=== PATIENT | female | born 1955 | race Caucasian/White ===

== ENCOUNTER 2016-10-19 09:02 | Inpatient (IN) | payer OTHER ==
[~2016-10-19] VITALS: Ht 165.1 cm; Wt 90.0 kg
[2016-10-19] MEDS: ENOXAPARIN 40 MG/0.4 ML SYRINGE (J1650) SC SCH (09:00)
[~2016-10-19 09:02] MED LIST: /METO25TAB PO; /MOXI40TA PO; ACCUKIT10 XX; ACURKIT XX; ADV250INH INH; ALB2.5NEB INH; ALBU17IN INH; ALBU17IN2 INH; ALPR1TAB3 PO; ASPI1TAB PO; ASPI81TA PO; AZIT250T3 PO; BUPR75TA5 PO; CEPH500C PO; CIPR500T3 PO; CYCL10TA PO; FLUC150T PO; FLUO20CA8 PO; FURO40TA2 PO; GLUC1000 PO; HYDR-3716 PO; INSUDET SC; INVA1INJ IV; IPRA2IN INH; K-TA10TA2 PO; KLOR1TAB77 PO; LASI20TA PO; LASI40TA PO; LISI10TA4 PO; METF500T PO; METO-346 PO; NICO14DI5 TD; NICO21PAT TD; NICO7DIS TD; NICODIS TD; POTA1TAB14 PO; POTA20VL PO; PRED10TA OR; PRED10TA PO; PRED10TA2 PO; PRED20TA PO; PRED20TAB PO; PYRI200T2 PO; SUCR1TAB56 PO; TIZA4CAP3 PO; TOUJ1.2I SC; TRAZ25TA PO; TYLE325T5 PO; VENL150C43 PO; VENTAER INH; VICO7.5T11 PO; XANA1TAB2 PO; ZITH500T PO; ZOCO20TA PO; [UNRECOGNIZED DRUG - CODE] PO; [UNRECOGNIZED DRUG - CODE] XX
[2016-10-19] MEDS ORDERED: IPRATROPIUM 0.5MG/ALBUTEROL 2.5MG INH SOL UD 3ML (DUONEB)(J7620) As Ordered ONE (09:22)
[2016-10-19] MEDS ORDERED: ALBUTEROL SULFATE 2.5 MG/0.5 ML INH NEB SOLN As Ordered ONE (09:23)
[2016-10-19] MEDS ORDERED: methylPREDNISolone INJ 125 MG/2 ML VIAL (J2930) As Ordered ONE (09:27)
[2016-10-19 09:32] LABS: BASO % 0.4 % (0.0-1.0); EOS % 0.4 % (0.0-3.0); LARGE UNSTAINED CELL # 0.2 K/mm3 (0.0-0.4); LARGE UNSTAINED CELL % 1.8 % (0.0-4.0); LYMPH # 2.4 K/mm3 (1.5-4.5); LYMPH % 18.8 % (24.0-44.0); MEAN CORPUSCULAR HEMOGLOBIN 30.7 pg (27.0-33.0); MEAN CORPUSCULAR HGB CONC 31.3 g/dl (32.0-36.5); MEAN CORPUSCULAR VOLUME 98.1 fl (80.0-96.0); MONO # 1.3 K/mm3 (0.0-0.8); MONO % 10.3 % (0.0-5.0); NEUTROPHILS # 8.7 K/mm3 (1.8-7.7); NEUTROPHILS % 68.3 % (36.0-66.0); PLATELET COUNT, AUTOMATED 372 k/mm3 (150-450); RED CELL DISTRIBUTION WIDTH 14.3 % (11.5-14.5); WHITE BLOOD COUNT 12.7 K/mm3 (4.0-10.0)
[2016-10-19 09:43] LABS: ABG BASE EXCESS 2.9 (-2.0-2.0); ABG DEVICE NASAL CANN; ABG HCO3 31.8 MEQ/L (22.0-26.0); ABG PARTIAL PRESSURE O2 93.5 mmHg (75.0-100.0); ABG TOTAL CO2 33.9 MEQ/L (23.0-31.0); ABG pH (ARTERIAL) 7.279 UNITS (7.350-7.450)
[2016-10-19 09:46] LABS: ABG PARTIAL PRESSURE CO2 69.3 mmHg (35.0-45.0)
[2016-10-19] MEDS ORDERED: METF500T PO (09:58)
[2016-10-19 10:02] LABS: ANION GAP 6 MEQ/L (8-16); BLOOD UREA NITROGEN 48 MG/DL (7-18); CALCIUM LEVEL 9.4 MG/DL (8.8-10.2); CARBON DIOXIDE LEVEL 35 MEQ/L (21-32); CHLORIDE LEVEL 103 MEQ/L (98-107); CREATININE FOR GFR 0.92 MG/DL (0.55-1.02); GLOMERULAR FILTRATION RATE > 60.0 (>45); GLUCOSE, FASTING 135 MG/DL (80-110); POTASSIUM SERUM 5.1 MEQ/L (3.5-5.1); SODIUM LEVEL 144 MEQ/L (136-145)
[2016-10-19 10:43] LABS: ALBUMIN 3.3 GM/DL (3.2-5.2); ALBUMIN/GLOBULIN RATIO 0.73 (1.00-1.93); ALKALINE PHOSPHATASE 76 U/L (45-117); ALT/SGPT 25 U/L (12-78); AST/SGOT 9 U/L (15-37); BILIRUBIN,DIRECT < 0.1 MG/DL (0.0-0.2); BILIRUBIN,TOTAL 0.2 MG/DL (0.2-1.0); TOTAL PROTEIN 7.8 GM/DL (6.4-8.2)
[2016-10-19 11:52] LABS: ABG BASE EXCESS 0.3 (-2.0-2.0); ABG DEVICE NASAL CANN; ABG HCO3 28.9 MEQ/L (22.0-26.0); ABG PARTIAL PRESSURE O2 79.5 mmHg (75.0-100.0); ABG STANDARD HCO3 24.7 MEQ/L (22.0-26.0); ABG TOTAL CO2 30.9 MEQ/L (23.0-31.0); ABG pH (ARTERIAL) 7.258 UNITS (7.350-7.450)
[2016-10-19 11:59] LABS: ABG PARTIAL PRESSURE CO2 66.2 mmHg (35.0-45.0)
[2016-10-19] MEDS ORDERED: DEXTROSE 50% 50 ML SYRINGE IV PRN (13:00)
[2016-10-19] MEDS ORDERED: GLUCOSE 4 GM CHEW TABLET PO PRN (13:00)
[2016-10-19] MEDS ORDERED: ONDANSETRON 4MG/2ML VIAL (J2405) IV PRN (13:00)
[2016-10-19] MEDS ORDERED: GLUCAGON FOR INJ 1 MG VIAL (J1610) SC PRN (13:00)
[2016-10-19] MEDS ORDERED: IPRATROPIUM 0.5MG/ALBUTEROL 2.5MG INH SOL UD 3ML (DUONEB)(J7620) NEB PRN ×2 (13:00)
[2016-10-19] MEDS ORDERED: IPRATROPIUM 0.5MG/ALBUTEROL 2.5MG INH SOL UD 3ML (DUONEB)(J7620) NEB SCH (14:00)
--- NOTE | 2016-10-19 14:01 | HPE ---
DATE OF ADMISSION: 10/19/2016 PRIMARY CARE PROVIDER: Dr. Thomas CHIEF COMPLAINT: Acute shortness of breath. HISTORY OF PRESENT ILLNESS: Ms. Weiss is a 60-year-old female, who presented to the emergency department with acute shortness of breath. Did perhaps initially had some altered mentation. Had complained to the emergency room (ER) staff that she has had increasing shortness of breath with cough and thick sputum for the last several days. Was started on prednisone and antibiotic by her outpatient provider yesterday. Difficult to ascertain a more meaningful history from the patient other than she said that her sister has been sick at home for the last week or so, as well, but she is currently on bilateral positive airway pressure (BiPAP), and the majority of the history and physical (H and P) was garnished from the medical records and family members at bedside. PAST MEDICAL HISTORY: Is positive for congestive heart failure (CHF), chronic obstructive pulmonary disease (COPD), diabetes, anxiety, tobacco use. SOCIAL HISTORY: She is a heavy smoker, unable to quantify at this time. No alcohol. No intravenous (IV) drug use. No recent travel. Positive sick contact at home with her sister having a lower respiratory infection. FAMILY HISTORY: Noncontributory. ALLERGIES: No known drug allergies. HOME MEDICATIONS: - Xanax 1 mg four times a day - potassium chloride 20 mEq daily - hydrocodone/acetaminophen 5/325 every 8 hours as needed back pain - Carafate 1 gram three times a day - metformin 500 mg two tablets twice a day - Cipro 500 mg every 12 hours, recently started yesterday - furosemide 40 mg daily - prednisone 5 mg three times a day started yesterday, as well - home oxygen 1.5 liters at night as needed REVIEW OF SYSTEMS: Constitutional: Questionable fevers. No chills. No rigors. No nausea, vomiting, or change in appetite. HEENT: No headache, lightheaded, dizziness, blurry vision, double vision, or tinnitus. No difficulty with swallow or speech. Pulmonary: Positive productive sputum and cough. No hemoptysis. Positive for wheeze. Positive history of COPD. Cardiovascular: Positive history of CHF. She has no paroxysmal nocturnal dyspnea (PND), orthopnea, but has noticed a little bit of some lower extremity edema. She does use furosemide daily. Gastrointestinal (GI): No nausea, vomiting, diarrhea. Bowel movements are regular. She denies any hematochezia or melena. Genitourinary (): No dysuria, frequency, or hematuria. Musculoskeletal: No bone loss or joint pain or swelling. Neurologic: No paresthesias or paralysis. No migraines. Lymphatics: No lumps, bumps, swelling in the neck, axilla, or groin. No weight loss. No night sweats. Endocrine: Positive for diabetes. Negative for thyroid disorder. Hematology: Negative for bleeding or bruising disorder. No prior history of venous thromboembolism. Oncology: No history of cancer. Psychiatric: Positive history of anxiety but no history of depression. No suicidal ideation. No audiovisual hallucination. Skin: No complaint of rashes, abrasions. 10-point review of systems completed. Pertinent positives are listed. PHYSICAL EXAMINATION: Temperature is 98.7, respiratory rate is 27, pulse 114, blood pressure (BP) is 134/76, SpO2 is 95% currently on BiPAP settings. HEENT: Head is atraumatic, normocephalic. Eyes: Pupils equal, round, reactive to light and accommodation. Throat clear. Mucous membranes dry. Neck: Supple. Lungs: Expiratory wheeze throughout all lung gonzalez. Diminished bibasilar breath sounds and occasional rhonchi bilaterally. Heart: Regular rate and rhythm. Abdomen: Is soft, nontender, nondistended, with positive bowel sounds. Obesity is noted. Extremities: She did have some trace edema of the ankles. No calf tenderness. LABORATORY DATA: White count is 12.7, hemoglobin 14.3, and platelets 372,000. Sodium 144, potassium 5.1, chloride 103, bicarbonate 35, anion gap 6, BUN is 48, creatinine is 0.92, glucose is 135, lactic acid 0.4, total bilirubin 0.2, direct bilirubin 0.1, AST 90, ALT 25, alkaline phosphatase 76, CK 34, CK-MB 2.4, troponin is less than 0.02, BNP is 60.3, albumin is 3.3. Blood cultures pending times two. Influenza A and B are pending. Chest x-ray: She does appear to have poor technique. Cardiomegaly is noted. No acute consolidation or infiltrate is noted. 12-lead electrocardiogram (EKG): Supraventricular tachycardia is noted. No acute Q-wave abnormalities. Arterial blood gas (ABG) initially showed a blood gas with pH of 7.279, pCO2 69.3, and pO2 of 93.5. Repeat after being on BiPAP: pH is 7.258 with pCO2 of 66.2, pO2 79.5. She does show some mild improvement while being on BiPAP. Will continue her on BiPAP in the intensive care unit (ICU) and continue to monitor closely. IMPRESSION: Ms. Weiss is a 60-year-old female, who presents with acute hypoxic respiratory failure and hypercarbia. Will need to be admitted to the ICU on BiPAP. She did require some gentle hydration with receiving two normal saline boluses of 500 mL and an additional 1000 mL bolus while in the emergency department. However, she is currently maintaining good blood pressure readings with systolic in 130s and maintaining good oxygen saturation on BiPAP. PROBLEM LIST: 1. Acute on chronic respiratory failure with hypercarbia with showing an improvement on BiPAP. 2. Presumed community-acquired pneumonia. qSOFA and lactic acid is negative for sepsis but will follow her closely. 3. Chronic obstructive pulmonary disease exacerbation with the use of home oxygen (O2). 4. History of congestive heart failure. 5. Anxiety. 6. History of tobacco use. PLAN: The patient is in ICU on BiPAP per Dr. Tom. Will continue with IV Levaquin, Solu-Medrol, and DuoNebs. Nothing by mouth until she is off BiPAP. Then, she can progress to a consistent-carbohydrate diet. For now, will do fingersticks every 6 hours with sliding scale coverage. Once she has been able to progress to a consistent-carbohydrate diet, will change this to before food and at bedtime fingersticks with before meals and at bedtime sliding scale coverage. Influenza A and B are pending. Continue her home meds with the exception of her inhalers, Lasix, potassium chloride, metformin or resume her diuretics in 24-48 hours pending her clinical status. For now, she has been given some IV fluids and may need to consider some gentle hydration, depending on how her clinical picture looks. Deep venous thrombosis (DVT) prophylaxis with Lovenox. DISPOSITION: She will be here greater than 2 midnights. She does have some acute hypoxia and combined with hypercarbia with respiratory failure and her prognosis does appear to be guarded currently. MARILUZ
--- NOTE | 2016-10-19 14:52 | EDDOCDS ---
Physician Documentation [facility] Name: Allison Weiss Age: 60 yrs Sex: Female : 1955 Arrival Date: 10/19/2016 Time: 09:02 Bed 13 Private MD: Khadijah Thomas Disposition: 10/19/16 13:19 Hospitalization ordered by Nura Espinoza for Inpatient Admission. Preliminary diagnosis is Respiratory failure, unspecified with hypercapnia. - Bed requested for M ICU. - Status is Inpatient Admission. dsf - Condition is Stable. - Problem is new. - Symptoms have improved. Historical: - Allergies: no known allergies; - Home Meds: 1. Xanax 1 mg Oral tab four times a day 2. potassium chloride 20 mEq Oral TbER once daily 3. hydrocodone-acetaminophen 5-325 mg Oral tab every 8 hours as needed 4. Carafate 1 gram Oral tab three times a day 5. metformin 500 mg Oral tab 2 tabs 2 times per day 6. Cipro 500 mg Oral tab 1 tab every 12 hours 7. furosemide 40 mg Oral tab once daily 8. prednisone 5 mg oral TbEC three times a day 9. Oxygen 1.5 liters at night as needed - PMHx: CHF; COPD; Diabetes - NIDDM: controlled; - Social history: Smoking status: Patient uses tobacco products, heavy tobacco smoker. No barriers to communication noted, The patient speaks fluent Romanian, Speaks appropriately for age. - Family history: Not pertinent. - : The pt / caregiver states he / she is not on anticoagulants. Home medication list is obtained from the patient. - Exposure Risk Screening:: None identified. Vital Signs: 10/19 09:03 BP 103 / 66; Pulse 119; Resp 22; Temp 98.7(O); Pulse Ox 84% ; Weight 90.26 kg / 198.99 cmb lbs; Height 5 ft. 5 in. (165.10 cm); Pain 7/10; 09:23 BP 97 / 55 (auto/); dsf 09:24 Pulse 94 MON; Pulse Ox 96% ; dsf 09:48 BP 105 / 69 (auto/); dsf 09:48 Pulse 98 MON; Pulse Ox 97% ; dsf 10:21 BP 130 / 84 (auto/); dsf 10:21 Pulse 108 MON; Pulse Ox 97% ; dsf 10:35 BP 99 / 56 (auto/); dsf 10:35 Pulse 66 MON; Pulse Ox 100% ; dsf 10:44 Resp 33; dsf 10:57 Pulse 114 MON; Pulse Ox 95% ; dsf 10:59 BP 134 / 76 (auto/); dsf 11:01 Resp 27; dsf 11:06 BP 134 / 83 (auto/); dsf 11:06 Pulse 110 MON; Pulse Ox 94% ; dsf 11:21 BP 133 / 82 (auto/); dsf 11:21 Pulse 110 MON; Pulse Ox 95% ; dsf 11:36 BP 122 / 69 (auto/); dsf 11:37 Pulse 108 MON; Pulse Ox 79% ; dsf 11:51 BP 122 / 71 (auto/); dsf 11:51 Pulse 104 MON; Pulse Ox 95% ; dsf 12:06 BP 123 / 61 (auto/); dsf 12:06 Pulse 104 MON; Pulse Ox 91% ; dsf 12:13 Temp 97.5(TE); dsf 12:13 BP 143 / 77 (auto/); Resp 23; dsf 12:21 BP 135 / 72 (auto/); dsf 12:22 Pulse 104 MON; Pulse Ox 97% ; dsf 12:40 BP 101 / 65 (auto/); dsf 12:42 Pulse 88 MON; Pulse Ox 96% ; dsf 12:57 BP 143 / 78 (auto/); dsf 12:57 Pulse 106 MON; Pulse Ox 92% ; dsf 13:06 BP 119 / 71 (auto/); dsf 13:06 Pulse 98 MON; Pulse Ox 97% ; dsf 13:21 BP 115 / 68 (auto/); dsf 13:22 Pulse 104 MON; Pulse Ox 96% ; dsf 13:51 BP 134 / 79 (auto/); dsf 13:53 Pulse 106 MON; Pulse Ox 96% ; dsf 13:58 BP 134 / 74 (auto/); dsf 13:58 Pulse 108 MON; Pulse Ox 95% ; dsf 14:06 BP 124 / 68 (auto/); dsf 14:07 Pulse 104 MON; Pulse Ox 95% ; dsf 14:21 BP 137 / 68 (auto/); dsf 14:21 Pulse 112 MON; Pulse Ox 96% ; dsf 14:36 BP 138 / 56 (auto/); dsf 14:40 Pulse 114 MON; Pulse Ox 91% ; dsf 14:45 BP 134 / 74; Pulse 107; Resp 31; Temp 97.1(TE); Pulse Ox 97% on 30% BiPAP; Pain 0/10; dsf 09:03 Body Mass Index 33.11 (90.26 kg, 165.10 cm) cmb MDM: 09:10 -Blood Culture (Adults Only), peripheral from different site, or from device/port/PICC sd1 etc. if present ordered. 09:10 Call Respiratory ordered. sd1 09:10 Vehicle Care Specialist/Pulse Ox/q 15 min VS ordered. sd1 09:10 IV Saline Lock ordered. sd1 09:10 Oxygen at 4L/Min NC or Home dosage ordered. sd1 09:10 Rhythm Strip to chart ordered. sd1 09:11 -Arterial Blood Gas Ordered. EDMS 09:11 B-Type Natiuretic Peptide Ordered. EDMS 09:11 Basic Metabolic Profile Ordered. EDMS 09:11 CBC with Diff Ordered. EDMS 09:11 Cardiac Injury Profile Ordered. EDMS 09:11 Troponin Ordered. EDMS 09:11 Lactic Acid (Richards tube on ice) Ordered. EDMS 09:11 -Blood Culture Ordered. EDMS 09:11 Chest, 1 View Ordered. EDMS 09:11 ECG WITH READING ER PHYS+CARDIAG ordered. EDMS 09:12 Call Respiratory complete. lbd 09:13 -Blood Culture (Adults Only), peripheral from different site, or from device/port/PICC lbd etc. if present complete. 09:15 BLOOD CULTURES Ordered. EDMS 09:22 Albuterol-Ipratropium 3 ml Inhalation once ordered. sd1 09:22 Albuterol 2.5 mg Nebulizer once x3 ordered. sd1 09:23 Solu-MEDROL 125 mg IVP once ordered. sd1 09:23 NS 0.9% 500 ml IV at bolus once ordered. sd1 09:23 BED REQUEST+ADM ordered. EDMS 09:40 CBC with Diff Reviewed. sd1 09:41 NS 0.9% 500 ml IV at bolus once ordered. sd1 09:55 -Arterial Blood Gas Reviewed. sd1 10:14 Basic Metabolic Profile Reviewed. sd1 10:14 Cardiac Injury Profile Reviewed. sd1 10:14 Troponin Reviewed. sd1 10:15 NS 0.9% 1000 ml IV at bolus once ordered. sd1 10:15 NS 0.9% (Sepsis- hypotension or lactate >4mmol/L, 30ml/kg) 30 ml/kg IV at bolus once; sd1 Give in 500mL aliquots, assess for ralestotal 2700cc ordered. 10:15 Misc. Nursing Order ordered. sd1 10:15 Moxifloxacin 400 mg IV at 400 mg/hr once over 60 mins ordered. sd1 10:18 -Arterial Blood Gas: 1.5 hours after BIPAP Ordered. EDMS 10:25 LIVER PROFILE Ordered. EDMS 10:43 Basic Metabolic Profile Reviewed. sd1 10:43 Cardiac Injury Profile Reviewed. sd1 10:43 Troponin Reviewed. sd1 11:05 Basic Metabolic Profile Reviewed. sd1 11:05 Cardiac Injury Profile Reviewed. sd1 11:05 LIVER PROFILE Reviewed. sd1 11:05 Troponin Reviewed. sd1 11:27 B-Type Natiuretic Peptide Reviewed. sd1 11:37 -Influenza A&B Rapid Antigen - Nose Ordered. EDMS 11:59 Lactic Acid (Richards tube on ice) Reviewed. sd1 12:55 D-Dimer Quant Ordered. EDMS 12:59 VENTILATOR SETTINGS ordered. EDMS 13:00 Admission / Observation Status ordered. EDMS 13:00 NPO DIET ordered. EDMS 13:19 Financial registration complete. mm15 13:20 [facility] Payment Agreement was scanned into [employer] and attached to record. mm15 13:52 BIPAP INPATIENT ordered. EDMS Administered Medications: 09:35 Drug: Solu-MEDROL 125 mg [Solu-Medrol 500 mg intravenous solution (125 mg)] Route: IVP; dsf Site: left antecubital; 09:35 Drug: NS 0.9% 500 ml [sodium chloride 0.9 % injection solution] Route: IV; Rate: bolus; dsf Site: left antecubital; 10:07 Follow up: IV Status: Completed infusion; IV Intake: 500ml dsf 09:37 Drug: Albuterol-Ipratropium 3 ml [ipratropium-albuterol 0.5 mg-3 mg(2.5 mg base)/3 mL kt1 nebulization soln (3 mL)] Route: Inhalation; 09:37 Drug: Albuterol 2.5 mg [albuterol sulfate 2.5 mg/0.5 mL solution for nebulization (0.5 kt1 mL)] Route: Nebulizer; 09:44 Drug: Albuterol 2.5 mg [albuterol sulfate 2.5 mg/0.5 mL solution for nebulization (0.5 kt1 mL)] Route: Nebulizer; 10:07 Drug: NS 0.9% 500 ml [sodium chloride 0.9 % injection solution] Route: IV; Rate: bolus; dsf Site: left antecubital; 13:14 Follow up: IV Status: Completed infusion; IV Intake: 500ml dsf 10:36 Drug: Moxifloxacin 400 mg [moxifloxacin 400 mg/250 mL-sodium chloride(iso) intravenous dsf piggyback] Route: IV; Rate: 400 mg/hr; Infused Over: 60 mins; Site: left antecubital; 13:13 Follow up: IV Status: Completed infusion; IV Intake: 250ml dsf 11:00 Drug: NS 0.9% 1000 ml [sodium chloride 0.9 % injection solution] Route: IV; Rate: dsf bolus; Site: right antecubital; 13:13 Follow up: IV Status: Completed infusion; IV Intake: 1000ml dsf 12:40 Drug: NS 0.9% (Sepsis- hypotension or lactate >4mmol/L, 30ml/kg) 2707.8 mL {Note: 700 dsf ml .} Route: IV; Rate: bolus; Site: right antecubital; Signatures: Dispatcher [facility] Dot Wong MD MD sd1 Carol Samuel, Parks And Recreation Manager [facility] Lainey Mares RN RN kpj Johnson, Bruce, RN RN bcj Fuller, Desiree, RN RN dsf [place] mm15 Christa Mark kt1 The chart was reviewed and I authenticate all verbal orders and agree with the evaluation and treatment provided.Corrections: (The following items were deleted from the chart) 10:25 10:23 LIVER PROFILE+LAB ordered. EDIA EDIA Attachments: 13:20 [facility] Payment Agreement [id number] MTDD
--- NOTE | 2016-10-19 14:52 | EDDOCDS ---
Nurse's Notes [facility] Name: Allison Weiss Age: 60 yrs Sex: Female : 1955 Arrival Date: 10/19/2016 Time: 09:02 Bed 13 Private MD: Khadijah Thomas Diagnosis: Respiratory failure, unspecified with hypercapnia Presentation: 10/19 09:18 Presenting complaint: Patient states: has been SOB for last few days - saw PMD bcj yesterday and started on prednisone and abx. today much more SOB. + cough with thick sputum. ? temp at home. Adult Sepsis Screening: The patient does not have new or worsening altered mentation. Patient has a respiratory rate of greater than or equal to 22 (1 point). Systolic blood pressure is greater than 100. Patient has a qSOFA score of 1- Negative Sepsis Screen. Suicide/Homicide risk assessment- the patient denies having any suicidal and/or homicidal ideations and does not present with any other emotional, behavioral or mental health complaints. 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 Transition of care: patient was not received from another setting of care. 09:18 Acuity: MARTHA Level 2 [facility] 09:18 Method Of Arrival: Walkin/Carried/Asstd [facility] Triage Assessment: 09:23 General: Appears ill, Behavior is cooperative. Pain: Location: chest Pain currently is bcj 7 out of 10 on a pain scale. HIV screening NA for this visit Offered previously. Respiratory: Onset: The symptoms/episode began/occurred today. Historical: - Allergies: no known allergies; - Home Meds: 1. Xanax 1 mg Oral tab four times a day 2. potassium chloride 20 mEq Oral TbER once daily 3. hydrocodone-acetaminophen 5-325 mg Oral tab every 8 hours as needed 4. Carafate 1 gram Oral tab three times a day 5. metformin 500 mg Oral tab 2 tabs 2 times per day 6. Cipro 500 mg Oral tab 1 tab every 12 hours 7. furosemide 40 mg Oral tab once daily 8. prednisone 5 mg oral TbEC three times a day 9. Oxygen 1.5 liters at night as needed - PMHx: CHF; COPD; Diabetes - NIDDM: controlled; - Social history: Smoking status: Patient uses tobacco products, heavy tobacco smoker. No barriers to communication noted, The patient speaks fluent Portuguese, Speaks appropriately for age. - Family history: Not pertinent. - : The pt / caregiver states he / she is not on anticoagulants. Home medication list is obtained from the patient. - Exposure Risk Screening:: None identified. Screenin:03 Infection Control. cmb 14:09 Screening information is obtained from the patient. Fall risk: No risks identified. dsf Assistance ADL's: requires no assistance with activities of daily living. Abuse/DV Screen: The patient / caregiver reports he/she is: not in a situation that causes fear, pain or injury. Nutritional screening: No deficits noted. Advance Directives: Currently, there is no health care proxy. home support is adequate. Assessment: 09:24 Adult Sepsis Screening: The patient does not have new or worsening altered mentation. dsf Patient has a respiratory rate of greater than or equal to 22 (1 point). Systolic blood pressure is less than or equal to 100 (1 point). Patient has a qSOFA score of 2. Patient has cough and/or SOB- Positive Sepsis Screen. Notified Dot Wong MD Patient made MARTHA Level 2. Patient placed in exam room. Charge nurse notified. General: Appears ill, Behavior is appropriate for age, cooperative. Pain: Location: chest Pain currently is 7 out of 10 on a pain scale. Neurological: Level of Consciousness is awake, alert, Oriented to person, place, time. Cardiovascular: Capillary refill < 3 seconds Heart tones S1 S2 present Rhythm is sinus tachycardia No ectopy. Chest pain is described as Pain is 7 out of 10 on a pain scale. is located in right left anterior chest wall. Respiratory: Airway is patent Respiratory effort is labored, Respiratory pattern is tachypnea Breath sounds are diminished bilaterally. Breath sounds with wheezes expiratory in right upper lobe and left upper lobe. GI: Abdomen is obese, Bowel sounds present X 4 quads. Abd is soft and non tender X 4 quads. Derm: Skin is pink, warm & dry. 10:36 General: Appears ill, Behavior is appropriate for age, cooperative. Neurological: Level dsf of Consciousness is awake, alert. Cardiovascular: Capillary refill < 3 seconds Heart tones S1 S2 present Rhythm is sinus rhythm No ectopy. Respiratory: Airway is patent Respiratory effort is labored, Respiratory pattern is tachypnea Breath sounds are diminished bilaterally. Breath sounds with wheezes expiratory in right upper lobe and left upper lobe. GI: Abdomen is non- distended obese, Bowel sounds present X 4 quads. Abd is soft and non tender X 4 quads. Derm: Skin is pink, warm & dry. 11:03 Adult Sepsis Screening: The patient does not have new or worsening altered mentation. dsf Patient has a respiratory rate of greater than or equal to 22 (1 point). Systolic blood pressure is greater than 100. Patient has a qSOFA score of 1- Negative Sepsis Screen. General: Appears ill, Behavior is appropriate for age, cooperative. Neurological: Level of Consciousness is awake, alert, Oriented to person, place, time. Cardiovascular: Capillary refill < 3 seconds Heart tones S1 S2 present Rhythm is sinus tachycardia No ectopy. Respiratory: Airway is patent bipap Respiratory effort is labored, Respiratory pattern is tachypnea Breath sounds are diminished bilaterally. Breath sounds with wheezes expiratory in right upper lobe and left upper lobe. GI: Abdomen is non- distended obese, Bowel sounds present X 4 quads. Abd is soft and non tender X 4 quads. Derm: Skin is pink, warm & dry. 12:03 General: Appears in no apparent distress, Behavior is appropriate for age, cooperative. dsf Neurological: Level of Consciousness is awake, alert. Cardiovascular: Capillary refill < 3 seconds Rhythm is sinus tachycardia No ectopy. Respiratory: Airway is patent bipap Respiratory effort is labored, Respiratory pattern is tachypnea. Derm: Skin is pink, warm & dry. 13:03 Adult Sepsis Screening: The patient does not have new or worsening altered mentation. dsf Patient has a respiratory rate of greater than or equal to 22 (1 point). Systolic blood pressure is greater than 100. Patient has a qSOFA score of 1- Negative Sepsis Screen. General: Appears in no apparent distress, Behavior is appropriate for age, cooperative. Neurological: Level of Consciousness is awake, alert. Cardiovascular: Capillary refill < 3 seconds Rhythm is sinus tachycardia No ectopy. Respiratory: Airway is patent Respiratory effort is even, Respiratory pattern is tachypnea. Derm: Skin is pink, warm & dry. 14:03 General: Appears in no apparent distress, Behavior is appropriate for age, cooperative. dsf Neurological: Level of Consciousness is awake, alert. Cardiovascular: Capillary refill < 3 seconds Rhythm is sinus tachycardia No ectopy. Respiratory: Airway is patent bipap Respiratory pattern is tachypnea. Derm: Skin is pink, warm & dry. 14:47 General: Appears in no apparent distress. Pain: Denies pain. Neurological: Level of dsf Consciousness is awake, alert, Oriented to person, place, time. Cardiovascular: Capillary refill < 3 seconds Heart tones S1 S2 present Rhythm is sinus tachycardia No ectopy. Respiratory: Airway is patent Respiratory effort is labored, Respiratory pattern is tachypnea Breath sounds are diminished bilaterally. GI: Abdomen is non- distended obese, Bowel sounds present X 4 quads. Abd is soft and non tender X 4 quads. Derm: Skin is pink, warm & dry. Vital Signs: 09:03 BP 103 / 66; Pulse 119; Resp 22; Temp 98.7(O); Pulse Ox 84% ; Weight 90.26 kg; Height 5 cmb ft. 5 in. (165.10 cm); Pain /10; 09:23 BP 97 / 55 (auto/); dsf 09:24 Pulse 94 MON; Pulse Ox 96% ; dsf 09:48 BP 105 / 69 (auto/); dsf 09:48 Pulse 98 MON; Pulse Ox 97% ; dsf 10:21 BP 130 / 84 (auto/); dsf 10:21 Pulse 108 MON; Pulse Ox 97% ; dsf 10:35 BP 99 / 56 (auto/); dsf 10:35 Pulse 66 MON; Pulse Ox 100% ; dsf 10:44 Resp 33; dsf 10:57 Pulse 114 MON; Pulse Ox 95% ; dsf 10:59 BP 134 / 76 (auto/); dsf 11:01 Resp 27; dsf 11:06 BP 134 / 83 (auto/); dsf 11:06 Pulse 110 MON; Pulse Ox 94% ; dsf 11:21 BP 133 / 82 (auto/); dsf 11:21 Pulse 110 MON; Pulse Ox 95% ; dsf 11:36 BP 122 / 69 (auto/); dsf 11:37 Pulse 108 MON; Pulse Ox 79% ; dsf 11:51 BP 122 / 71 (auto/); dsf 11:51 Pulse 104 MON; Pulse Ox 95% ; dsf 12:06 BP 123 / 61 (auto/); dsf 12:06 Pulse 104 MON; Pulse Ox 91% ; dsf 12:13 Temp 97.5(TE); dsf 12:13 BP 143 / 77 (auto/); Resp 23; dsf 12:21 BP 135 / 72 (auto/); dsf 12:22 Pulse 104 MON; Pulse Ox 97% ; dsf 12:40 BP 101 / 65 (auto/); dsf 12:42 Pulse 88 MON; Pulse Ox 96% ; dsf 12:57 BP 143 / 78 (auto/); dsf 12:57 Pulse 106 MON; Pulse Ox 92% ; dsf 13:06 BP 119 / 71 (auto/); dsf 13:06 Pulse 98 MON; Pulse Ox 97% ; dsf 13:21 BP 115 / 68 (auto/); dsf 13:22 Pulse 104 MON; Pulse Ox 96% ; dsf 13:51 BP 134 / 79 (auto/); dsf 13:53 Pulse 106 MON; Pulse Ox 96% ; dsf 13:58 BP 134 / 74 (auto/); dsf 13:58 Pulse 108 MON; Pulse Ox 95% ; dsf 14:06 BP 124 / 68 (auto/); dsf 14:07 Pulse 104 MON; Pulse Ox 95% ; dsf 14:21 BP 137 / 68 (auto/); dsf 14:21 Pulse 112 MON; Pulse Ox 96% ; dsf 14:36 BP 138 / 56 (auto/); dsf 14:40 Pulse 114 MON; Pulse Ox 91% ; dsf 14:45 BP 134 / 74; Pulse 107; Resp 31; Temp 97.1(TE); Pulse Ox 97% on 30% BiPAP; Pain 0/10; dsf 09:03 Body Mass Index 33.11 (90.26 kg, 165.10 cm) cmb Vitals: 09:03 Log In Time: October 19, 2016 at 09:01. cmb ED Course: 09:03 Patient visited by Sofia Ingram. cmb 09:03 Khadijah Thomas is Private Physician. cmb 09:03 Patient moved to Waiting cmb 09:07 RN notified that patient meets Red Flag criteria. cmb 09:08 Patient moved to 15 cmb 09:14 Accompanied by Family Member, Patient has correct armband on for positive ct3 identification. Placed in gown. Bed in low position. Call light in reach. Side rails up X 1. laboratory monitor on. Pulse ox on. NIBP on. 09:15 Dot Wong MD is Attending Physician. sd1 09:15 Patient visited by Dot Wong MD. sd1 09:19 Inserted saline lock: 20 gauge in left antecubital area The patient tolerated the dsf procedure well. O2 via nasal cannula \T\ 3L/min. 09:19 Lactic Acid (Richards tube on ice) Sent. dsf 09:19 -Blood Culture Sent. dsf 09:19 B-Type Natiuretic Peptide Sent. dsf 09:20 Basic Metabolic Profile Sent. dsf 09:20 CBC with Diff Sent. dsf 09:20 Cardiac Injury Profile Sent. dsf 09:20 Troponin Sent. dsf 09:21 Triage Initiated bcj 09:24 EKG done. (by ED staff). Reviewed by Dot Wong MD. ct3 09:25 Patient visited by Caitlin Kasper PCA. ct3 09:25 Patient visited by Jonnie Mazariegos RN. bcj 09:35 BLOOD CULTURES Sent. dsf 09:37 -Arterial Blood Gas Sent. kt1 09:57 Patient visited by Caitlin Kasper PCA. ct3 10:07 Patient moved to 13 dsf 10:37 Patient visited by Jessica Jarquin RN. dsf 11:01 Inserted saline lock: 20 gauge in right antecubital area The patient tolerated the dsf procedure well. 11:04 Patient visited by Jessica Jarquin RN. dsf 11:50 -Arterial Blood Gas: 1.5 hours after BIPAP Sent. kt1 12:00 Notified attending ED physician of Critical lab value. Dr Swanson aware of abnormal ABG [facility] results.. 12:13 Patient visited by Jessica Jarquin RN. dsf 12:47 Patient visited by Caitlin Kasper PCA. ct3 13:03 Manuel cath inserted 16 Fr. Balloon inflated. To gravity drainage. Urine specimen dsf collected. returned clear yellow urine. 13:04 Patient visited by Jessica Jarquin RN. dsf 13:04 -Influenza A&B Rapid Antigen - Nose Sent. dsf 13:19 Nura Espinoza DO is Hospitalizing Provider. sd1 13:20 [facility] Payment Agreement was scanned into [employer] and attached to record. mm15 14:09 The patient / caregiver is instructed regarding the plan of care and ED course. dsf 14:09 No procedures done that require assistance. dsf 14:12 Patient visited by Jessica Jarquin RN. dsf Administered Medications: 09:35 Drug: Solu-MEDROL 125 mg [Solu-Medrol 500 mg intravenous solution (125 mg)] Route: IVP; dsf Site: left antecubital; 09:35 Drug: NS 0.9% 500 ml [sodium chloride 0.9 % injection solution] Route: IV; Rate: bolus; dsf Site: left antecubital; 10:07 Follow up: IV Status: Completed infusion; IV Intake: 500ml dsf 09:37 Drug: Albuterol-Ipratropium 3 ml [ipratropium-albuterol 0.5 mg-3 mg(2.5 mg base)/3 mL kt1 nebulization soln (3 mL)] Route: Inhalation; 09:37 Drug: Albuterol 2.5 mg [albuterol sulfate 2.5 mg/0.5 mL solution for nebulization (0.5 kt1 mL)] Route: Nebulizer; 09:44 Drug: Albuterol 2.5 mg [albuterol sulfate 2.5 mg/0.5 mL solution for nebulization (0.5 kt1 mL)] Route: Nebulizer; 10:07 Drug: NS 0.9% 500 ml [sodium chloride 0.9 % injection solution] Route: IV; Rate: bolus; dsf Site: left antecubital; 13:14 Follow up: IV Status: Completed infusion; IV Intake: 500ml dsf 10:36 Drug: Moxifloxacin 400 mg [moxifloxacin 400 mg/250 mL-sodium chloride(iso) intravenous dsf piggyback] Route: IV; Rate: 400 mg/hr; Infused Over: 60 mins; Site: left antecubital; 13:13 Follow up: IV Status: Completed infusion; IV Intake: 250ml dsf 11:00 Drug: NS 0.9% 1000 ml [sodium chloride 0.9 % injection solution] Route: IV; Rate: dsf bolus; Site: right antecubital; 13:13 Follow up: IV Status: Completed infusion; IV Intake: 1000ml dsf 12:40 Drug: NS 0.9% (Sepsis- hypotension or lactate >4mmol/L, 30ml/kg) 2707.8 mL {Note: 700 dsf ml .} Route: IV; Rate: bolus; Site: right antecubital; Intake: 10:07 IV: 500.00ml; Total: 500.00ml. dsf 13:13 IV: 250.00ml; Total: 750.00ml. dsf 13:13 IV: 1000.00ml; Total: 1750.00ml. dsf 13:14 IV: 500.00ml; Total: 2250.00ml. dsf 10:56 pt also tipped bedpan over ,bed linen soaked, linen changed. kpj Output: 10:56 Urine: 400.00ml (Voided); Total: 400.00ml. kpj 14:39 Urine: 350.00ml (Voided); Total: 750.00ml. dsf 10:56 pt also tipped bedpan over ,bed linen soaked, linen changed. kpj RT: 09:44 ABG's drawn from right radial artery pressure held for 5 minutes no bleeding noted kt1 pressure bandage applied specimen sent pt. tolerated well. 09:44 Initial Med Neb Given as ordered Patient was instructed and evaluated on procedure. kt1 Respiratory: Breath sounds are diminished bilaterally. Breath sounds with wheezes at expiration. 10:12 BIPAP: Inspiratory Pressure: 12, Expiratory Pressure: 6, Backup Rate: 10, FiO2: 30%, kt1 Full face fask. 11:50 ABG's drawn from right radial artery pressure held for 5 minutes no bleeding noted kt1 pressure bandage applied specimen sent pt. tolerated well. Order Results: Lab Order: -Arterial Blood Gas; SPEC'M 10/19/16 09:21 Test: ABG pH (ARTERIAL); Value: 7.279; Range: 7.350-7.450; Abnormal: Below low normal; Units: UNITS; Status: F Test: ABG PARTIAL PRESSURE CO2; Value: 69.3; Range: 35.0-45.0; Abnormal: Above upper panic limits; Units: mmHg; Status: F Test: ABG PARTIAL PRESSURE O2; Value: 93.5; Range: 75.0-100.0; Units: mmHg; Status: F Test: ABG TOTAL CO2; Value: 33.9; Range: 23.0-31.0; Abnormal: Above high normal; Units: MEQ/L; Status: F Test: ABG HCO3; Value: 31.8; Range: 22.0-26.0; Abnormal: Above high normal; Units: MEQ/L; Status: F Test: ABG BASE EXCESS; Value: 2.9; Range: -2.0-2.0; Abnormal: Above high normal; Status: F Test: ABG STANDARD HCO3; Value: 27.0; Range: 22.0-26.0; Abnormal: Above high normal; Units: MEQ/L; Status: F Test: ABG O2 SATURATION; Value: 97.2; Range: 95.0-99.0; Units: %; Status: F Test: ABG DEVICE; Value: NASAL ONEAL; Status: F Lab Order: B-Type Natiuretic Peptide; SPEC' 10/19/16 09:18 Test: BRAIN NATRIURETIC PEPTIDE; Value: 60.3; Range: <100; Units: PG/ML; Status: F Lab Order: Basic Metabolic Profile; SPEC' 10/19/16 09:17 Test: GLUCOSE, FASTING; Value: 135; Range: 80-110; Abnormal: Above high normal; Units: MG/DL; Status: F Test: BLOOD UREA NITROGEN; Value: 48; Range: 7-18; Abnormal: Above high normal; Units: MG/DL; Status: F Test: CREATININE FOR GFR; Value: 0.92; Range: 0.55-1.02; Units: MG/DL; Status: F Test: GLOMERULAR FILTRATION RATE; Value: > 60.0; Range: >45; Status: F Test: SODIUM LEVEL; Value: 144; Range: 136-145; Units: MEQ/L; Status: F Test: POTASSIUM SERUM; Value: 5.1; Range: 3.5-5.1; Units: MEQ/L; Status: F Test: CHLORIDE LEVEL; Value: 103; Range: 98-107; Units: MEQ/L; Status: F Test: CARBON DIOXIDE LEVEL; Value: 35; Range: 21-32; Abnormal: Above high normal; Units: MEQ/L; Status: F Test: ANION GAP; Value: 6; Range: 8-16; Abnormal: Below low normal; Units: MEQ/L; Status: F Test: CALCIUM LEVEL; Value: 9.4; Range: 8.8-10.2; Units: MG/DL; Status: F Test Note: ; Units are mL/min/1.73 m2 Chronic Kidney Disease Staging per NKF: Stage I & II GFR >=60 Normal to Mildly Decreased Stage III GFR 30-59 Moderately Decreased Stage IV GFR 15-29 Severely Decreased Stage V GFR <15 Very Little GFR Left ESRD GFR <15 on COMPUTER APPLICATIONS INSTRUCTOR Lab Order: CBC with Diff; SPEC'M 10/19/16 09:18 Test: WHITE BLOOD COUNT; Value: 12.7; Range: 4.0-10.0; Abnormal: Above high normal; Units: K/mm3; Status: F Test: RED BLOOD COUNT; Value: 4.65; Range: 4.00-5.40; Units: M/mm3; Status: F Test: HEMOGLOBIN; Value: 14.3; Range: 12.0-16.0; Units: g/dl; Status: F Test: HEMATOCRIT; Value: 45.6; Range: 36.0-47.0; Units: %; Status: F Test: MEAN CORPUSCULAR VOLUME; Value: 98.1; Range: 80.0-96.0; Abnormal: Above high normal; Units: fl; Status: F Test: MEAN CORPUSCULAR HEMOGLOBIN; Value: 30.7; Range: 27.0-33.0; Units: pg; Status: F Test: MEAN CORPUSCULAR HGB CONC; Value: 31.3; Range: 32.0-36.5; Abnormal: Below low normal; Units: g/dl; Status: F Test: RED CELL DISTRIBUTION WIDTH; Value: 14.3; Range: 11.5-14.5; Units: %; Status: F Test: PLATELET COUNT, AUTOMATED; Value: 372; Range: 150-450; Units: k/mm3; Status: F Test: NEUTROPHILS %; Value: 68.3; Range: 36.0-66.0; Abnormal: Above high normal; Units: %; Status: F Test: LYMPH %; Value: 18.8; Range: 24.0-44.0; Abnormal: Below low normal; Units: %; Status: F Test: MONO %; Value: 10.3; Range: 0.0-5.0; Abnormal: Above high normal; Units: %; Status: F Test: EOS %; Value: 0.4; Range: 0.0-3.0; Units: %; Status: F Test: BASO %; Value: 0.4; Range: 0.0-1.0; Units: %; Status: F Test: LARGE UNSTAINED CELL %; Value: 1.8; Range: 0.0-4.0; Units: %; Status: F Test: NEUTROPHILS #; Value: 8.7; Range: 1.8-7.7; Abnormal: Above high normal; Units: K/mm3; Status: F Test: LYMPH #; Value: 2.4; Range: 1.5-4.5; Units: K/mm3; Status: F Test: MONO #; Value: 1.3; Range: 0.0-0.8; Abnormal: Above high normal; Units: K/mm3; Status: F Test: EOS #; Value: 0.0; Range: 0.0-0.50; Units: K/mm3; Status: F Test: BASO #; Value: 0.0; Range: 0.0-0.2; Units: K/mm3; Status: F Test: LARGE UNSTAINED CELL #; Value: 0.2; Range: 0.0-0.4; Units: K/mm3; Status: F Lab Order: Cardiac Injury Profile; SPEC'M 10/19/16 09:17 Test: CPK CREATINE PHOSPHOKINASE; Value: 34; Range: 26-192; Units: U/L; Status: F Test: CK-MB VALUE MASS; Value: 2.4; Range: 0.0-3.6; Units: NG/ML; Status: F Test: MB/CK RELATIVE INDEX; Value: 7.05; Range: < OR =4; Abnormal: Above high normal; Status: F Test Note: ; DIAGNOSIS CRITERIA MMB ng/ml Relative Index (RI) NON-AMI < or = 5 N/A RICHARDS ZONE > 5 < or = 4 AMI > 5 > 4 Lab Order: Troponin; SPEC'M 10/19/16 09:17 Test: TROPONIN I; Value: < 0.02; Range: < 0.10; Units: NG/ML; Status: F Test Note: ; Troponin I Reference Interval for Siemens [place] LOCI: 99th Percentile= 0.00-0.045 ng/ml Risk Stratification: <= 0.10 ng/ml Decreased Risk for Adverse Clinical Events. 0.10-1.50 ng/ml Increased Risk for Adverse Clinical Events. Evaluation of additional criterion and/or repeat testing in 2-6 hours is suggested to rule out myocardial damage. >= 1.50 ng/ml Indicative of Myocardial Injury. Lab Order: Lactic Acid (Richards tube on ice); SPEC10/19/16 09:18 Test: LACTIC ACID LEVEL, LACTATE; Value: 0.4; Range: 0.4-2.0; Units: MMOL/L; Status: F Lab Order: -Arterial Blood Gas: 1.5 hours after BIPAP; 10/19/16 11:38 Test: ABG pH (ARTERIAL); Value: 7.258; Range: 7.350-7.450; Abnormal: Below low normal; Units: UNITS; Status: F Test: ABG PARTIAL PRESSURE CO2; Value: 66.2; Range: 35.0-45.0; Abnormal: Above upper panic limits; Units: mmHg; Status: F Test: ABG PARTIAL PRESSURE O2; Value: 79.5; Range: 75.0-100.0; Units: mmHg; Status: F Test: ABG TOTAL CO2; Value: 30.9; Range: 23.0-31.0; Units: MEQ/L; Status: F Test: ABG HCO3; Value: 28.9; Range: 22.0-26.0; Abnormal: Above high normal; Units: MEQ/L; Status: F Test: ABG BASE EXCESS; Value: 0.3; Range: -2.0-2.0; Status: F Test: ABG STANDARD HCO3; Value: 24.7; Range: 22.0-26.0; Units: MEQ/L; Status: F Test: ABG O2 SATURATION; Value: 95.6; Range: 95.0-99.0; Units: %; Status: F Test: ABG DEVICE; Value: NASAL ONEAL; Status: F Lab Order: LIVER PROFILE; SPEC10/19/16 09:17 Test: AST/SGOT; Value: 9; Range: 15-37; Abnormal: Below low normal; Units: U/L; Status: F Test: ALT/SGPT; Value: 25; Range: 12-78; Units: U/L; Status: F Test: ALKALINE PHOSPHATASE; Value: 76; Range: 45-117; Units: U/L; Status: F Test: BILIRUBIN,TOTAL; Value: 0.2; Range: 0.2-1.0; Units: MG/DL; Status: F Test: BILIRUBIN,DIRECT; Value: < 0.1; Range: 0.0-0.2; Units: MG/DL; Status: F Test: TOTAL PROTEIN; Value: 7.8; Range: 6.4-8.2; Units: GM/DL; Status: F Test: ALBUMIN; Value: 3.3; Range: 3.2-5.2; Units: GM/DL; Status: F Test: ALBUMIN/GLOBULIN RATIO; Value: 0.73; Range: 1.00-1.93; Abnormal: Below low normal; Status: F Lab Order: -Influenza A&B Rapid Antigen - Nose; SPEC'M 10/19/16 13:02 Test: INFLUENZA A RAPID SCR by ICA; Value: INFLUENZA A RESULTS NEGATIVE; Status: F Test: INFLUENZA A RAPID SCR by ICA; Value: Comments:; Status: F Test: INFLUENZA B RAPID SCR by ICA; Value: INFLUENZA B RESULTS NEGATIVE; Status: F Test Note: ; The Influenza test is a direct rapid immunoassay for the qualitative detection of Influenza viral antigen. Cell culture (Viral Culture) testing should be considered to confirm NEGATIVE results and to assist in detecting other viruses that can provide similar clinical symptoms. Please contact the lab within 24 hours ([phone]) if confirmatory testing is desired. Lab Order: D-Dimer Quant; SPEC'M 10/19/16 09:17 Test: D-DIMER QUANT; Value: < 270.0; Range: <500; Units: ng/ml; Status: F Outcome: 13:19 Decision to Hospitalize by Provider. sd1 14:12 No special radiology studies were completed. dsf 14:46 Discharge Assessment: Patient awake, alert and oriented x 3. No cognitive and/or dsf functional deficits noted. Patient verbalized understanding of disposition instructions. patient administered narcotics - no. The following High Risk Discharge criteria are identified: None. Admitted to ICU accompanied by nurse, accompanied by tech, family with patient, via stretcher, with oxygen, on monitor, with chart. Condition: stable. Property :Personal belongings accompany Pt. 14:50 Patient left the ED. dsf Signatures: Dot Wong MD MD sd1 Lainey Mares RN RN Jonnie De La Rosa, RN RN Christa Gupta kt1 Caitlin Kasper, POWER PLANT ASSISTANT POWER PLANT ASSISTANT ct3 Jessica Jarquin RN RN dsf Sofia Ingram [facility] [place] mm15 Corrections: (The following items were deleted from the chart) 13:03 12:13 BP 143 / 77 Auto; dsf dsf 14:49 14:45 BP 134 / 74; Pulse 107bpm; Resp 22bpm; Pulse Ox 97% 02 30% BiPAP; Temp 97.1F dsf Temporal; Pain 0/10; dsf MTDD
[2016-10-19 15:13] VITALS: BP 121/59
[2016-10-19] MEDS: ASPIRIN 81 MG ENTERIC TAB PO SCH (15:29)
[2016-10-19] MEDS: ALPRAZolam 0.5 MG TAB PO PRN (15:30)
[2016-10-19] MEDS: LevoFLOXacin IV 500 MG in APPROPRIATE DILUENT 1 EA IV SCH (15:30)
--- NOTE | 2016-10-19 15:48 | REP ---
PORTABLE CHEST: AP portable view of the chest is performed and compared to multiple prior exams, the most recent of which is 08/28/2016. There is cardiomegaly. I see no acute infiltrate. Mediastinal silhouette is unchanged. IMPRESSION: Cardiomegaly. No acute infiltrate. Signed by Sebastian Richards MD 10/20/2016 05:06 P
[2016-10-19 16:00] VITALS: BP 152/78
[2016-10-19] MEDS: IPRATROPIUM 0.5MG/ALBUTEROL 2.5MG INH SOL UD 3ML (DUONEB)(J7620) NEB SCH ×2 (16:01→20:59)
--- NOTE | 2016-10-19 16:41 | CR.PDOC ---
[facility] Consultation Consultation Critical Care Note Date: 10/19/2016 Critical care time spent: 47 minutes excluding procedures NOTE: Asked by Dr. Espinoza to emergently evaluate Ms. Weiss for acute respiratory failure with hypoxia and hypercarbia requiring noninvasive positive pressure ventilation Ms. Weiss is a 60-year-old female with a past medical history of COPD (I do not know spirometric values), mild pulmonary hypertension, DM, anxiety and ongoing tobacco usage who presented to the emergency department with acute shortness of breath. She states that this came on suddenly yesterday. She went to see her primary care provider at that time who started her on Cipro and prednisone, however, she has progressively gotten worse over the past 24 hours, therefore she decided to come to the emergency department. In addition to shortness of breath, she had wheezing and a cough productive of white sputum. She denies hemoptysis, fevers, chills, night sweats, recent weight gain/loss, chest discomfort/pain, palpitations, exertional dyspnea, orthopnea, nausea, vomiting, diarrhea, constipation, or abdominal pain. She was seen and evaluated by the hospitalist service who felt that she likely has an exacerbation of her chronic obstructive pulmonary disease, with a presumed superimposed community-acquired pneumonia. 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 While in the emergency department she did have some mild hypotension and tachycardia, therefore she was treated with a total of 1.5 L of normal saline. She was also given Solu- Medrol 125 mg IV, and moxifloxacin, after one treatment with DuoNeb, and 2 additional albuterol nebulized treatments, she was not showing any improvement clinically, and her ABG had not improved, therefore the decision was made to place her on noninvasive positive pressure ventilation, and our service was consulted. ALLERGIES: No known drug allergies PHYSICAL EXAMINATION: Vitals: Blood pressure 143/78, pulse 106, respirations 23, temperature 97.5, pulse 92% on BiPAP, weight 90 kg, height 5 feet 5 inches, BMI 33 General: Awake, alert, sitting up on the edge of the bed. She is currently wearing the BiPAP mask. She appears to be in no acute distress, she is requesting to remove the mask. HEENT: Head normocephalic atraumatic, conjunctiva are pink, sclera are nonicteric, lips and oral cavity appeared dry. Hearing is grossly intact to conversation. Neck: No JVD. No thyromegaly or masses. Trachea is midline. Lymph: No cervical or supraclavicular lymphadenopathy. Chest: Normal size and shape. Respiratory: Effort is symmetric. Inspiratory and expiratory wheeze noted throughout. No rhonchi or crackles. Prolonged expiratory phase. No accessory muscle usage or retractions. Cardiovascular: Distant heart sounds, however it appears that she has regular rate and rhythm, with no appreciable rubs, gallops, or murmur. Abdomen: Obese, Soft, nontender, nondistended, no hepatosplenomegaly appreciated. Bowel sounds present. Extremities: 2+ pulses in the radial and dorsalis pedis bilaterally. She does have 1+ edema to just above the ankles bilaterally. No clubbing or cyanosis. IMAGING: I reviewed her AP portable chest x-ray which does not demonstrate any specific areas of consolidation, cardiac silhouette is enlarged. Both diaphragms and costophrenic angles are visible. ASSESSMENT: 1. Acute and chronic hypercapnic respiratory failure. 2. Chronic obstructive lung disease exacerbation. 3. Acute bronchitis, possibly viral. RECOMMENDATIONS: 1. Recommend that she continue with noninvasive positive pressure ventilation, we'll check another ABG at this time as she has been on it for greater than 2 hours, and adjust as necessary. 2. Continue with steroids, Solu-Medrol 60 mg every 12 hours 3. It is possible that she has had a viral infection as the inciting event, and in light of her leukocytosis and history of obstructive lung disease, it would be prudent to empirically treat her with antibiotics at this time to ensure that this does not progress into a bacterial infection. 4. Recommend performing pulmonary function tests prior to discharge when she is feeling better, to more precisely delineate the degree of her obstructive lung disease. ADDENDUM: I, Dr. Ni Post, independently performed a history and physical examination and agree with the documentation above. I discussed the assessment and plan with the resident as noted in the above documentation. Laboratory Data Labs 24H Laboratory Tests 2 10/19/16 09:17: Aspartate Amino Transf (AST/SGOT) 9L, Alanine Aminotransferase (ALT/SGPT) 25, Alkaline Phosphatase 76, Total Bilirubin 0.2, Direct Bilirubin < 0.1, Albumin 3.3, Albumin/Globulin Ratio 0.73L, Anion Gap 6L, Calcium Level 9.4, Creatine Kinase MB 2.4, Creatine Kinase MB Relative Index 7.05H, D-Dimer, Quantitative < 270.0, Glomerular Filtration Rate > 60.0, Total Creatine Kinase 34, Total Protein 7.8, Troponin I < 0.02 10/19/16 09:18: B-Type Natriuretic Peptide 60.3, White Blood Count 12.7H, Red Blood Count 4.65, Hemoglobin 14.3, Hematocrit 45.6, Mean Corpuscular Volume 98.1H, Mean Corpuscular Hemoglobin 30.7, Mean Corpuscular Hemoglobin Concent 31.3L, Red Cell Distribution Width 14.3, Platelet Count 372, Neutrophils (%) (Auto) 68.3H, Lymphocytes (%) (Auto) 18.8L, Monocytes (%) (Auto) 10.3H, Eosinophils (%) (Auto ) 0.4, Basophils (%) (Auto) 0.4, Neutrophils # (Auto) 8.7H, Lymphocytes # (Auto ) 2.4, Monocytes # (Auto) 1.3H, Eosinophils # (Auto) 0.0, Basophils # (Auto) 0.0 , Lactic Acid Level 0.4, Large Unclassified Cells # 0.2, Large Unclassified Cells % 1.8 10/19/16 09:21: Arterial Blood pH 7.279L, Arterial Blood Partial Pressure CO2 69.3*H, Arterial Blood Partial Pressure O2 93.5, Arterial Blood Total CO2 33.9H, Arterial Blood HCO3 31.8H, Arterial Blood Base Excess 2.9H, Arterial Blood Oxygen Saturation 97.2, Blood Gas Bicarbonate Standard 27.0H, Oxygen Delivery Device NASAL ONEAL 10/19/16 11:38: Arterial Blood pH 7.258L, Arterial Blood Partial Pressure CO2 66.2*H, Arterial Blood Partial Pressure O2 79.5, Arterial Blood Total CO2 30.9, Arterial Blood HCO3 28.9H, Arterial Blood Base Excess 0.3, Arterial Blood Oxygen Saturation 95.6, Blood Gas Bicarbonate Standard 24.7, Oxygen Delivery Device NASAL ONEAL CBC/BMP Laboratory Tests 10/19/16 09:17 10/19/16 09:18 Red Blood Count 4.65, Mean Corpuscular Volume 98.1 H, Mean Corpuscular Hemoglobin 30.7, Mean Corpuscular Hemoglobin Concent 31.3 L, Red Cell Distribution Width 14.3, Neutrophils (%) (Auto) 68.3 H, Lymphocytes (%) (Auto) 18.8 L, Monocytes (%) (Auto) 10.3 H, Eosinophils (%) (Auto) 0.4, Basophils (%) ( Auto) 0.4, Neutrophils # (Auto) 8.7 H, Lymphocytes # (Auto) 2.4, Monocytes # ( Auto) 1.3 H, Eosinophils # (Auto) 0.0, Basophils # (Auto) 0.0 Microbiology Microbiology 10/19/16 Blood Culture, Received Pending 10/19/16 Blood Culture, Received Pending 10/19/16 MRSA Screen, Received Pending 10/19/16 Influenza Virus Type A Antigen - Final, Complete 10/19/16 Influenza Virus Type B Antigen - Final, Complete Allergies Coded Allergies: No Known Allergies (Unverified , 01/20/14) Home Medications Scheduled (Incruse Ellipta) 62.5 Mcg/Inh Inh #1 62.5 MCG INH DAILY (Arnuity Ellipta) 200 Mcg/Act Inh #1 200 MCG INH DAILY Alprazolam (Xanax) 1 Mg Tab 1 MG PO QID (Reported) Aspirin (Aspirin 81) 81 Mg Tab 81 MG PO DAILY (Reported) Furosemide (Furosemide) 40 Mg Tab 40 MG PO DAILY (Reported) Levofloxacin Hemihydrate (Levaquin) 500 Mg Tab #5 500 MG PO DAILY Metformin Hydrochloride (Metformin HCl) 500 Mg Tab 500 MG PO BID (Reported) Nicotine (Nicotine Step 1) 21 Mg/24 Hr Dis #30 21 MG TD DAILY Potassium Chloride (Potassium Chloride ER) 20 Meq Tab 20 MEQ PO DAILY (Reported ) Prednisone (Prednisone) 10 Mg Tab #21 10 MG PO ASDIRECTED 4 tablets daily for 3 days 2 tablets daily for 3 days 1 tablet daily for 3 days Sucralfate (Sucralfate) 1 Gm Tab 1 GM PO TID (Reported) Scheduled PRN Acetaminophen/Hydrocodone (Hydrocodone/Acetaminophen 7.5-325 mg) 1 Tab Tab 1 TAB PO TID PRN PRN PAIN (Reported) Albuterol Sulfate (Ventolin Hfa) 200 Puff/8 Gm Aers 2 PUFF INH Q4H PRN PRN SHORTNESS OF BREATH (Reported) Albuterol Sulfate (Albuterol Sulfate) 2.5 Mg/0.5 Ml Neb 2.5 MG INH Q4H PRN PRN SHORTNESS OF BREATH (Reported) JOSE IRWIN DO Oct 19, 2016 15:31 Darrell POST MD Nov 01, 2016 14:21 Alprazolam (Xanax) 1 Mg Tab 1 MG PO QID (Reported) Aspirin (Aspirin 81) 81 Mg Tab 81 MG PO DAILY (Reported) Furosemide (Furosemide) 40 Mg Tab 40 MG PO DAILY (Reported) Metformin Hydrochloride (Metformin HCl) 500 Mg Tab 500 MG PO BID (Reported) Potassium Chloride (Potassium Chloride ER) 20 Meq Tab 20 MEQ PO DAILY (Reported ) Sucralfate (Sucralfate) 1 Gm Tab 1 GM PO TID (Reported) Scheduled PRN Acetaminophen/Hydrocodone (Hydrocodone/Acetaminophen 7.5-325 mg) 1 Tab Tab 1 TAB PO TID PRN PRN PAIN (Reported) Albuterol Sulfate (Ventolin Hfa) 200 Puff/8 Gm Aers 2 PUFF INH Q4H PRN PRN SHORTNESS OF BREATH (Reported) Albuterol Sulfate (Albuterol Sulfate) 2.5 Mg/0.5 Ml Neb 2.5 MG INH Q4H PRN PRN SHORTNESS OF BREATH (Reported) JOSE IRWIN DO Oct 19, 2016 15:31
[2016-10-19] MEDS: SUCRALFATE 1 GM TAB PO SCH ×2 (16:44→20:53)
[2016-10-19] MEDS: methylPREDNISolone INJ 125 MG/2 ML VIAL (J2930) IV SCH (16:44)
[2016-10-19] MEDS: NICOTINE 14 MG/24 HR TRANSDERMAL TD SCH (16:44)
[2016-10-19 16:58] LABS: ABG BASE EXCESS 1.7 (-2.0-2.0); ABG PARTIAL PRESSURE O2 83.7 mmHg (75.0-100.0); ABG STANDARD HCO3 25.9 MEQ/L (22.0-26.0); ABG pH (ARTERIAL) 7.281 UNITS (7.350-7.450)
[2016-10-19 16:59] LABS: ABG PARTIAL PRESSURE CO2 65.1 mmHg (35.0-45.0)
[2016-10-19 17:00] VITALS: BP 154/65
[2016-10-19] MEDS ORDERED: methylPREDNISolone INJ 125 MG/2 ML VIAL (J2930) IV SCH (17:00)
[2016-10-19] MEDS: HumaLOG INSULIN (NovoLOG) PER UNIT SC SCH (17:45)
[2016-10-19 20:00] VITALS: BP 116/67
[2016-10-19] MEDS: DOCUSATE SODIUM 100 MG CAP PO SCH (20:53)
[2016-10-20] VITALS (7 sets, daily range): BP systolic 106–116; BP diastolic 58–90
[2016-10-20] MEDS: ALPRAZolam 0.5 MG TAB PO PRN ×4 (00:15→21:32)
[2016-10-20] MEDS: HumaLOG INSULIN (NovoLOG) PER UNIT SC SCH ×6 (00:15→20:35)
[2016-10-20] MEDS: methylPREDNISolone INJ 125 MG/2 ML VIAL (J2930) IV SCH (04:35)
[2016-10-20 05:04] LABS: MEAN CORPUSCULAR HEMOGLOBIN 30.5 pg (27.0-33.0); MEAN CORPUSCULAR HGB CONC 30.4 g/dl (32.0-36.5); MEAN CORPUSCULAR VOLUME 100.6 fl (80.0-96.0); RED CELL DISTRIBUTION WIDTH 15.1 % (11.5-14.5); WHITE BLOOD COUNT 12.8 K/mm3 (4.0-10.0)
[2016-10-20 05:27] LABS: ANION GAP 5 MEQ/L (8-16); BLOOD UREA NITROGEN 38 MG/DL (7-18); CALCIUM LEVEL 8.4 MG/DL (8.8-10.2); CARBON DIOXIDE LEVEL 32 MEQ/L (21-32); CHLORIDE LEVEL 106 MEQ/L (98-107); CREATININE FOR GFR 0.78 MG/DL (0.55-1.02); GLOMERULAR FILTRATION RATE > 60.0 (>45); GLUCOSE, FASTING 167 MG/DL (80-110); SODIUM LEVEL 143 MEQ/L (136-145)
[2016-10-20 05:47] LABS: POTASSIUM SERUM 5.7 MEQ/L (3.5-5.1)
[2016-10-20] MEDS: IPRATROPIUM 0.5MG/ALBUTEROL 2.5MG INH SOL UD 3ML (DUONEB)(J7620) NEB SCH ×4 (08:04→20:00)
[2016-10-20] MEDS: ADVAIR DISKUS 250/50 INH PWD INH SCH ×2 (09:00→21:00)
[2016-10-20] MEDS: DOCUSATE SODIUM 100 MG CAP PO SCH ×2 (09:13→20:34)
[2016-10-20] MEDS: SUCRALFATE 1 GM TAB PO SCH ×3 (09:13→20:34)
[2016-10-20] MEDS: ASPIRIN 81 MG ENTERIC TAB PO SCH (09:13)
[2016-10-20] MEDS: NICOTINE 14 MG/24 HR TRANSDERMAL TD SCH (09:13)
[2016-10-20] MEDS: ENOXAPARIN 40 MG/0.4 ML SYRINGE (J1650) SC SCH (09:13)
[2016-10-20 09:28] LABS: ABG BASE EXCESS 1.7 (-2.0-2.0); ABG HCO3 28.9 MEQ/L (22.0-26.0); ABG PARTIAL PRESSURE CO2 57.4 mmHg (35.0-45.0); ABG PARTIAL PRESSURE O2 67.7 mmHg (75.0-100.0); ABG STANDARD HCO3 25.9 MEQ/L (22.0-26.0); ABG TOTAL CO2 30.7 MEQ/L (23.0-31.0)
[2016-10-20] MEDS ORDERED: ALBUTEROL SULFATE 2.5 MG/0.5 ML INH NEB SOLN NEB PRN (10:00)
[2016-10-20] MEDS: predniSONE 20 MG TAB PO SCH (10:58)
[2016-10-20] MEDS: TIOTROPIUM INHALER/CAPSULE (SPIRIVA) INH SCH (11:32)
--- NOTE | 2016-10-20 12:10 | IPN ---
DATE: 10/20/2016 She is awake, alert, feeling much better this morning and would like to go home. Has not complaints of pain. No chest pain. Not particularly short of breath. Does not want to wear the BiPAP mask again. Temperature is 97.6, pulse 85, respiratory rate 20, blood pressure 106/58, 96% on 1 liter nasal cannula. She is awake, alert, pleasantly interactive, remembers me from previous encounters. Head is normocephalic. Sinuses are nontender. Mucous membranes moist. Neck is supple, thick. Breathing is symmetrical, diminished throughout, I:D ratio is 1:4. Coarse upper airway sounds are noted. No wheezes. No accessory muscle use. Speaking in complete sentences. Heart is in regular rate and rhythm. Abdomen is soft, doughy, nontender. White cell count 12.8, hemoglobin 11.5, and platelets of 295. Sodium 143, potassium 5.6, chloride 106, bicarbonate 32, BUN 38, creatinine 0.78, glucose of 167. ASSESSMENT: This is a 60-year-old female who presented with acute hypoxic respiratory failure and hypercapnia was admitted to the ICU on BiPAP. PLAN: 1. For acute on chronic hypercapnia and hypoxic respiratory failure patient has improved. Has been seen in consultation by Dr. Post, we have discussed the case in person. Dr. Post is concerned that the patient might have underlying obstructive sleep apnea that will require outpatient work-up and has adjusted her medications to add at home controller medication. 2. Patient is being treated for presumed community acquired pneumonia. She did have some hypotension at the time of presentation. 3. Patient has a history of congestive heart failure. She has been out of her diuretics at home, recently refilled them, just started using them again. 4. Patient has a history of anxiety. 5. Patient has a history of tobacco use. 6. Patient can be transferred to med/surg today.
[2016-10-20] MEDS: LevoFLOXacin IV 500 MG in APPROPRIATE DILUENT 1 EA IV SCH (14:34)
[2016-10-20] MEDS: ANEXSIA, NORCO 7.5MG/325MG TABLET(HYDROCODONE/APAP) PO PRN (14:34)
[2016-10-20] MEDS ORDERED: HumuLIN R (REGULAR) INSULIN (NovoLIN R) **100U/ML** PER UNIT SC ONE (18:15)
[2016-10-20] MEDS ORDERED: HumaLOG INSULIN (NovoLOG) PER UNIT SC ONE (18:30)
--- NOTE | 2016-10-20 19:34 | ECGEPIP ---
Stationary ECG Study [facility] - ED Test Date: 2016-10-19 Pat Name: MAN KANG Department: Room: [place] [address] Gender: F Electrolysist: ct : 1955 Requested By: Dot Wong Order Number: [id number] Reading MD: Dot Wong Measurements Intervals Needles Rate: 105 P: [place]: 0 QRS: 40 QRSD: 86 T: 9 QT: 279 QTc: 369 Interpretive Statements SINUS TACHYCARDIA POSSIBLE RIGHT VENTRICULAR CONDUCTION DELAY LOW VOLTAGE LIMB ABNORMAL RHYTHM ECG V5 UNREADABLE DECREASED RATE 08/28/16 Electronically Signed On 10-20-2016 19:33:52 EST by Dot Wong
[2016-10-21] MEDS: ANEXSIA, NORCO 7.5MG/325MG TABLET(HYDROCODONE/APAP) PO PRN ×2 (05:46→13:47)
[2016-10-21 06:00] VITALS: BP 114/61
[2016-10-21] MEDS: IPRATROPIUM 0.5MG/ALBUTEROL 2.5MG INH SOL UD 3ML (DUONEB)(J7620) NEB SCH ×4 (06:09→21:22)
[2016-10-21 06:30] LABS: MEAN CORPUSCULAR HGB CONC 31.1 g/dl (32.0-36.5); MEAN CORPUSCULAR VOLUME 96.5 fl (80.0-96.0); RED CELL DISTRIBUTION WIDTH 15.1 % (11.5-14.5); WHITE BLOOD COUNT 12.5 K/mm3 (4.0-10.0)
[2016-10-21 06:50] LABS: ANION GAP 5 MEQ/L (8-16); BLOOD UREA NITROGEN 34 MG/DL (7-18); CALCIUM LEVEL 8.5 MG/DL (8.8-10.2); CARBON DIOXIDE LEVEL 31 MEQ/L (21-32); CHLORIDE LEVEL 105 MEQ/L (98-107); CREATININE FOR GFR 0.89 MG/DL (0.55-1.02); GLOMERULAR FILTRATION RATE > 60.0 (>45); GLUCOSE, FASTING 107 MG/DL (80-110); SODIUM LEVEL 141 MEQ/L (136-145)
[2016-10-21 06:51] LABS: POTASSIUM SERUM 5.3 MEQ/L (3.5-5.1)
[2016-10-21] MEDS: TIOTROPIUM INHALER/CAPSULE (SPIRIVA) INH SCH (07:30)
[2016-10-21] MEDS: ADVAIR DISKUS 250/50 INH PWD INH SCH ×2 (07:30→19:50)
[2016-10-21] MEDS: SUCRALFATE 1 GM TAB PO SCH ×3 (08:03→20:45)
[2016-10-21] MEDS: predniSONE 20 MG TAB PO SCH (08:03)
[2016-10-21] MEDS: ASPIRIN 81 MG ENTERIC TAB PO SCH (08:03)
[2016-10-21] MEDS: DOCUSATE SODIUM 100 MG CAP PO SCH ×2 (08:04→20:45)
[2016-10-21] MEDS: NICOTINE 14 MG/24 HR TRANSDERMAL TD SCH (08:04)
[2016-10-21] MEDS: ENOXAPARIN 40 MG/0.4 ML SYRINGE (J1650) SC SCH (08:05)
[2016-10-21] MEDS: HumaLOG INSULIN (NovoLOG) PER UNIT SC SCH ×4 (08:06→20:45)
[2016-10-21] MEDS: ALPRAZolam 0.5 MG TAB PO PRN ×2 (10:31→17:19)
[2016-10-21] MEDS ORDERED: FUROSEMIDE 20 MG/2 ML VIAL (J1940) IV ONE (11:30)
[2016-10-21 14:00] VITALS: BP 120/63
[2016-10-21] MEDS: LevoFLOXacin IV 500 MG in APPROPRIATE DILUENT 1 EA IV SCH (15:00)
--- NOTE | 2016-10-21 15:51 | EDDOCDS ---
Nurse's Notes [facility] Name: Allison Weiss Age: 60 yrs Sex: Female : 1955 Arrival Date: 10/19/2016 Time: 09:02 Bed 13 Private MD: Khadijah Thomas Diagnosis: Respiratory failure, unspecified with hypercapnia Presentation: 10/19 09:18 Presenting complaint: Patient states: has been SOB for last few days - saw PMD bcj yesterday and started on prednisone and abx. today much more SOB. + cough with thick sputum. ? temp at home. Adult Sepsis Screening: The patient does not have new or worsening altered mentation. Patient has a respiratory rate of greater than or equal to 22 (1 point). Systolic blood pressure is greater than 100. Patient has a qSOFA score of 1- Negative Sepsis Screen. Suicide/Homicide risk assessment- the patient denies having any suicidal and/or homicidal ideations and does not present with any other emotional, behavioral or mental health complaints. Status: Patient is not a director of neighborhood service center or dependent. Transition of care: patient was not received from another setting of care. 09:18 Acuity: MARTHA Level 2 [facility] 09:18 Method Of Arrival: Walkin/Carried/Asstd [facility] Triage Assessment: 09:23 General: Appears ill, Behavior is cooperative. Pain: Location: chest Pain currently is bcj 7 out of 10 on a pain scale. HIV screening NA for this visit Offered previously. Respiratory: Onset: The symptoms/episode began/occurred today. Historical: - Allergies: no known allergies; - Home Meds: 1. Xanax 1 mg Oral tab four times a day 2. potassium chloride 20 mEq Oral TbER once daily 3. hydrocodone-acetaminophen 5-325 mg Oral tab every 8 hours as needed 4. Carafate 1 gram Oral tab three times a day 5. metformin 500 mg Oral tab 2 tabs 2 times per day 6. Cipro 500 mg Oral tab 1 tab every 12 hours 7. furosemide 40 mg Oral tab once daily 8. prednisone 5 mg oral TbEC three times a day 9. Oxygen 1.5 liters at night as needed - PMHx: CHF; COPD; Diabetes - NIDDM: controlled; - Social history: Smoking status: Patient uses tobacco products, heavy tobacco smoker. No barriers to communication noted, The patient speaks fluent Malay, Speaks appropriately for age. - Family history: Not pertinent. - : The pt / caregiver states he / she is not on anticoagulants. Home medication list is obtained from the patient. - Exposure Risk Screening:: None identified. Screenin:03 Infection Control. cmb 14:09 Screening information is obtained from the patient. Fall risk: No risks identified. dsf Assistance ADL's: requires no assistance with activities of daily living. Abuse/DV Screen: The patient / caregiver reports he/she is: not in a situation that causes fear, pain or injury. Nutritional screening: No deficits noted. Advance Directives: Currently, there is no health care proxy. home support is adequate. Assessment: 09:24 Adult Sepsis Screening: The patient does not have new or worsening altered mentation. dsf Patient has a respiratory rate of greater than or equal to 22 (1 point). Systolic blood pressure is less than or equal to 100 (1 point). Patient has a qSOFA score of 2. Patient has cough and/or SOB- Positive Sepsis Screen. Notified Dot Wong MD Patient made MARTHA Level 2. Patient placed in exam room. Charge nurse notified. General: Appears ill, Behavior is appropriate for age, cooperative. Pain: Location: chest Pain currently is 7 out of 10 on a pain scale. Neurological: Level of Consciousness is awake, alert, Oriented to person, place, time. Cardiovascular: Capillary refill < 3 seconds Heart tones S1 S2 present Rhythm is sinus tachycardia No ectopy. Chest pain is described as Pain is 7 out of 10 on a pain scale. is located in right left anterior chest wall. Respiratory: Airway is patent Respiratory effort is labored, Respiratory pattern is tachypnea Breath sounds are diminished bilaterally. Breath sounds with wheezes expiratory in right upper lobe and left upper lobe. GI: Abdomen is obese, Bowel sounds present X 4 quads. Abd is soft and non tender X 4 quads. Derm: Skin is pink, warm & dry. 10:36 General: Appears ill, Behavior is appropriate for age, cooperative. Neurological: Level dsf of Consciousness is awake, alert. Cardiovascular: Capillary refill < 3 seconds Heart tones S1 S2 present Rhythm is sinus rhythm No ectopy. Respiratory: Airway is patent Respiratory effort is labored, Respiratory pattern is tachypnea Breath sounds are diminished bilaterally. Breath sounds with wheezes expiratory in right upper lobe and left upper lobe. GI: Abdomen is non- distended obese, Bowel sounds present X 4 quads. Abd is soft and non tender X 4 quads. Derm: Skin is pink, warm & dry. 11:03 Adult Sepsis Screening: The patient does not have new or worsening altered mentation. dsf Patient has a respiratory rate of greater than or equal to 22 (1 point). Systolic blood pressure is greater than 100. Patient has a qSOFA score of 1- Negative Sepsis Screen. General: Appears ill, Behavior is appropriate for age, cooperative. Neurological: Level of Consciousness is awake, alert, Oriented to person, place, time. Cardiovascular: Capillary refill < 3 seconds Heart tones S1 S2 present Rhythm is sinus tachycardia No ectopy. Respiratory: Airway is patent bipap Respiratory effort is labored, Respiratory pattern is tachypnea Breath sounds are diminished bilaterally. Breath sounds with wheezes expiratory in right upper lobe and left upper lobe. GI: Abdomen is non- distended obese, Bowel sounds present X 4 quads. Abd is soft and non tender X 4 quads. Derm: Skin is pink, warm & dry. 12:03 General: Appears in no apparent distress, Behavior is appropriate for age, cooperative. dsf Neurological: Level of Consciousness is awake, alert. Cardiovascular: Capillary refill < 3 seconds Rhythm is sinus tachycardia No ectopy. Respiratory: Airway is patent bipap Respiratory effort is labored, Respiratory pattern is tachypnea. Derm: Skin is pink, warm & dry. 13:03 Adult Sepsis Screening: The patient does not have new or worsening altered mentation. dsf Patient has a respiratory rate of greater than or equal to 22 (1 point). Systolic blood pressure is greater than 100. Patient has a qSOFA score of 1- Negative Sepsis Screen. General: Appears in no apparent distress, Behavior is appropriate for age, cooperative. Neurological: Level of Consciousness is awake, alert. Cardiovascular: Capillary refill < 3 seconds Rhythm is sinus tachycardia No ectopy. Respiratory: Airway is patent Respiratory effort is even, Respiratory pattern is tachypnea. Derm: Skin is pink, warm & dry. 14:03 General: Appears in no apparent distress, Behavior is appropriate for age, cooperative. dsf Neurological: Level of Consciousness is awake, alert. Cardiovascular: Capillary refill < 3 seconds Rhythm is sinus tachycardia No ectopy. Respiratory: Airway is patent bipap Respiratory pattern is tachypnea. Derm: Skin is pink, warm & dry. 14:47 General: Appears in no apparent distress. Pain: Denies pain. Neurological: Level of dsf Consciousness is awake, alert, Oriented to person, place, time. Cardiovascular: Capillary refill < 3 seconds Heart tones S1 S2 present Rhythm is sinus tachycardia No ectopy. Respiratory: Airway is patent Respiratory effort is labored, Respiratory pattern is tachypnea Breath sounds are diminished bilaterally. GI: Abdomen is non- distended obese, Bowel sounds present X 4 quads. Abd is soft and non tender X 4 quads. Derm: Skin is pink, warm & dry. Vital Signs: 09:03 BP 103 / 66; Pulse 119; Resp 22; Temp 98.7(O); Pulse Ox 84% ; Weight 90.26 kg; Height 5 cmb ft. 5 in. (165.10 cm); Pain /10; 09:23 BP 97 / 55 (auto/); dsf 09:24 Pulse 94 MON; Pulse Ox 96% ; dsf 09:48 BP 105 / 69 (auto/); dsf 09:48 Pulse 98 MON; Pulse Ox 97% ; dsf 10:21 BP 130 / 84 (auto/); dsf 10:21 Pulse 108 MON; Pulse Ox 97% ; dsf 10:35 BP 99 / 56 (auto/); dsf 10:35 Pulse 66 MON; Pulse Ox 100% ; dsf 10:44 Resp 33; dsf 10:57 Pulse 114 MON; Pulse Ox 95% ; dsf 10:59 BP 134 / 76 (auto/); dsf 11:01 Resp 27; dsf 11:06 BP 134 / 83 (auto/); dsf 11:06 Pulse 110 MON; Pulse Ox 94% ; dsf 11:21 BP 133 / 82 (auto/); dsf 11:21 Pulse 110 MON; Pulse Ox 95% ; dsf 11:36 BP 122 / 69 (auto/); dsf 11:37 Pulse 108 MON; Pulse Ox 79% ; dsf 11:51 BP 122 / 71 (auto/); dsf 11:51 Pulse 104 MON; Pulse Ox 95% ; dsf 12:06 BP 123 / 61 (auto/); dsf 12:06 Pulse 104 MON; Pulse Ox 91% ; dsf 12:13 Temp 97.5(TE); dsf 12:13 BP 143 / 77 (auto/); Resp 23; dsf 12:21 BP 135 / 72 (auto/); dsf 12:22 Pulse 104 MON; Pulse Ox 97% ; dsf 12:40 BP 101 / 65 (auto/); dsf 12:42 Pulse 88 MON; Pulse Ox 96% ; dsf 12:57 BP 143 / 78 (auto/); dsf 12:57 Pulse 106 MON; Pulse Ox 92% ; dsf 13:06 BP 119 / 71 (auto/); dsf 13:06 Pulse 98 MON; Pulse Ox 97% ; dsf 13:21 BP 115 / 68 (auto/); dsf 13:22 Pulse 104 MON; Pulse Ox 96% ; dsf 13:51 BP 134 / 79 (auto/); dsf 13:53 Pulse 106 MON; Pulse Ox 96% ; dsf 13:58 BP 134 / 74 (auto/); dsf 13:58 Pulse 108 MON; Pulse Ox 95% ; dsf 14:06 BP 124 / 68 (auto/); dsf 14:07 Pulse 104 MON; Pulse Ox 95% ; dsf 14:21 BP 137 / 68 (auto/); dsf 14:21 Pulse 112 MON; Pulse Ox 96% ; dsf 14:36 BP 138 / 56 (auto/); dsf 14:40 Pulse 114 MON; Pulse Ox 91% ; dsf 14:45 BP 134 / 74; Pulse 107; Resp 31; Temp 97.1(TE); Pulse Ox 97% on 30% BiPAP; Pain 0/10; dsf 09:03 Body Mass Index 33.11 (90.26 kg, 165.10 cm) cmb Vitals: 09:03 Log In Time: October 19, 2016 at 09:01. cmb ED Course: 09:03 Patient visited by Sofia Ingram. cmb 09:03 Khadijah Thomas is Private Physician. cmb 09:03 Patient moved to Waiting cmb 09:07 RN notified that patient meets Red Flag criteria. cmb 09:08 Patient moved to 15 cmb 09:14 Accompanied by Family Member, Patient has correct armband on for positive ct3 identification. Placed in gown. Bed in low position. Call light in reach. Side rails up X 1. parking assistant on. Pulse ox on. NIBP on. 09:15 Dot Wong MD is Attending Physician. sd1 09:15 Patient visited by Dot Wong MD. sd1 09:19 Inserted saline lock: 20 gauge in left antecubital area The patient tolerated the dsf procedure well. O2 via nasal cannula \T\ 3L/min. 09:19 Lactic Acid (Richards tube on ice) Sent. dsf 09:19 -Blood Culture Sent. dsf 09:19 B-Type Natiuretic Peptide Sent. dsf 09:20 Basic Metabolic Profile Sent. dsf 09:20 CBC with Diff Sent. dsf 09:20 Cardiac Injury Profile Sent. dsf 09:20 Troponin Sent. dsf 09:21 Triage Initiated bcj 09:24 EKG done. (by ED staff). Reviewed by Dot Wong MD. ct3 09:25 Patient visited by Caitlin Kasper PCA. ct3 09:25 Patient visited by Jonnie Mazariegos RN. bcj 09:35 BLOOD CULTURES Sent. dsf 09:37 -Arterial Blood Gas Sent. kt1 09:57 Patient visited by Caitlin Kasper PCA. ct3 10:07 Patient moved to 13 dsf 10:37 Patient visited by Jessica Jarquin RN. dsf 11:01 Inserted saline lock: 20 gauge in right antecubital area The patient tolerated the dsf procedure well. 11:04 Patient visited by Jessica Jarquin RN. dsf 11:50 -Arterial Blood Gas: 1.5 hours after BIPAP Sent. kt1 12:00 Notified attending ED physician of Critical lab value. Dr Swanson aware of abnormal ABG [facility] results.. 12:13 Patient visited by Jessica Jarquin RN. dsf 12:47 Patient visited by Caitlin Kasper PCA. ct3 13:03 Manuel cath inserted 16 Fr. Balloon inflated. To gravity drainage. Urine specimen dsf collected. returned clear yellow urine. 13:04 Patient visited by Jessica Jarquin RN. dsf 13:04 -Influenza A&B Rapid Antigen - Nose Sent. dsf 13:19 Nura Espinoza DO is Hospitalizing Provider. sd1 13:20 [facility] Payment Agreement was scanned into Bubbl and attached to record. mm15 14:09 The patient / caregiver is instructed regarding the plan of care and ED course. dsf 14:09 No procedures done that require assistance. dsf 14:12 Patient visited by Jessica Jarquin RN. dsf 10/20 12:03 T-Sheet-- Draft Copy was scanned into Bubbl and attached to record. gb 12:04 ECG/EKG was scanned into [employer] and attached to record. gb Administered Medications: 10/19 09:35 Drug: Solu-MEDROL 125 mg [Solu-Medrol 500 mg intravenous solution (125 mg)] Route: IVP; dsf Site: left antecubital; 09:35 Drug: NS 0.9% 500 ml [sodium chloride 0.9 % injection solution] Route: IV; Rate: bolus; dsf Site: left antecubital; 10:07 Follow up: IV Status: Completed infusion; IV Intake: 500ml dsf 09:37 Drug: Albuterol-Ipratropium 3 ml [ipratropium-albuterol 0.5 mg-3 mg(2.5 mg base)/3 mL kt1 nebulization soln (3 mL)] Route: Inhalation; 09:37 Drug: Albuterol 2.5 mg [albuterol sulfate 2.5 mg/0.5 mL solution for nebulization (0.5 kt1 mL)] Route: Nebulizer; 09:44 Drug: Albuterol 2.5 mg [albuterol sulfate 2.5 mg/0.5 mL solution for nebulization (0.5 kt1 mL)] Route: Nebulizer; 10:07 Drug: NS 0.9% 500 ml [sodium chloride 0.9 % injection solution] Route: IV; Rate: bolus; dsf Site: left antecubital; 13:14 Follow up: IV Status: Completed infusion; IV Intake: 500ml dsf 10:36 Drug: Moxifloxacin 400 mg [moxifloxacin 400 mg/250 mL-sodium chloride(iso) intravenous dsf piggyback] Route: IV; Rate: 400 mg/hr; Infused Over: 60 mins; Site: left antecubital; 13:13 Follow up: IV Status: Completed infusion; IV Intake: 250ml dsf 11:00 Drug: NS 0.9% 1000 ml [sodium chloride 0.9 % injection solution] Route: IV; Rate: dsf bolus; Site: right antecubital; 13:13 Follow up: IV Status: Completed infusion; IV Intake: 1000ml dsf 12:40 Drug: NS 0.9% (Sepsis- hypotension or lactate >4mmol/L, 30ml/kg) 2707.8 mL {Note: 700 dsf ml .} Route: IV; Rate: bolus; Site: right antecubital; Intake: 10:07 IV: 500.00ml; Total: 500.00ml. dsf 13:13 IV: 250.00ml; Total: 750.00ml. dsf 13:13 IV: 1000.00ml; Total: 1750.00ml. dsf 13:14 IV: 500.00ml; Total: 2250.00ml. dsf 10:56 pt also tipped bedpan over ,bed linen soaked, linen changed. kpj Output: 10:56 Urine: 400.00ml (Voided); Total: 400.00ml. kpj 14:39 Urine: 350.00ml (Voided); Total: 750.00ml. dsf 10:56 pt also tipped bedpan over ,bed linen soaked, linen changed. kpj RT: 09:44 ABG's drawn from right radial artery pressure held for 5 minutes no bleeding noted kt1 pressure bandage applied specimen sent pt. tolerated well. 09:44 Initial Med Neb Given as ordered Patient was instructed and evaluated on procedure. kt1 Respiratory: Breath sounds are diminished bilaterally. Breath sounds with wheezes at expiration. 10:12 BIPAP: Inspiratory Pressure: 12, Expiratory Pressure: 6, Backup Rate: 10, FiO2: 30%, kt1 Full face fask. 11:50 ABG's drawn from right radial artery pressure held for 5 minutes no bleeding noted kt1 pressure bandage applied specimen sent pt. tolerated well. Order Results: Lab Order: -Arterial Blood Gas; SPEC'M 10/19/16 09:21 Test: ABG pH (ARTERIAL); Value: 7.279; Range: 7.350-7.450; Abnormal: Below low normal; Units: UNITS; Status: F Test: ABG PARTIAL PRESSURE CO2; Value: 69.3; Range: 35.0-45.0; Abnormal: Above upper panic limits; Units: mmHg; Status: F Test: ABG PARTIAL PRESSURE O2; Value: 93.5; Range: 75.0-100.0; Units: mmHg; Status: F Test: ABG TOTAL CO2; Value: 33.9; Range: 23.0-31.0; Abnormal: Above high normal; Units: MEQ/L; Status: F Test: ABG HCO3; Value: 31.8; Range: 22.0-26.0; Abnormal: Above high normal; Units: MEQ/L; Status: F Test: ABG BASE EXCESS; Value: 2.9; Range: -2.0-2.0; Abnormal: Above high normal; Status: F Test: ABG STANDARD HCO3; Value: 27.0; Range: 22.0-26.0; Abnormal: Above high normal; Units: MEQ/L; Status: F Test: ABG O2 SATURATION; Value: 97.2; Range: 95.0-99.0; Units: %; Status: F Test: ABG DEVICE; Value: NASAL ONEAL; Status: F Lab Order: B-Type Natiuretic Peptide; SPEC'M 10/19/16 09:18 Test: BRAIN NATRIURETIC PEPTIDE; Value: 60.3; Range: <100; Units: PG/ML; Status: F Lab Order: Basic Metabolic Profile; SPEC'10/19/16 09:17 Test: GLUCOSE, FASTING; Value: 135; Range: 80-110; Abnormal: Above high normal; Units: MG/DL; Status: F Test: BLOOD UREA NITROGEN; Value: 48; Range: 7-18; Abnormal: Above high normal; Units: MG/DL; Status: F Test: CREATININE FOR GFR; Value: 0.92; Range: 0.55-1.02; Units: MG/DL; Status: F Test: GLOMERULAR FILTRATION RATE; Value: > 60.0; Range: >45; Status: F Test: SODIUM LEVEL; Value: 144; Range: 136-145; Units: MEQ/L; Status: F Test: POTASSIUM SERUM; Value: 5.1; Range: 3.5-5.1; Units: MEQ/L; Status: F Test: CHLORIDE LEVEL; Value: 103; Range: 98-107; Units: MEQ/L; Status: F Test: CARBON DIOXIDE LEVEL; Value: 35; Range: 21-32; Abnormal: Above high normal; Units: MEQ/L; Status: F Test: ANION GAP; Value: 6; Range: 8-16; Abnormal: Below low normal; Units: MEQ/L; Status: F Test: CALCIUM LEVEL; Value: 9.4; Range: 8.8-10.2; Units: MG/DL; Status: F Test Note: ; Units are mL/min/1.73 m2 Chronic Kidney Disease Staging per NKF: Stage I & II GFR >=60 Normal to Mildly Decreased Stage III GFR 30-59 Moderately Decreased Stage IV GFR 15-29 Severely Decreased Stage V GFR <15 Very Little GFR Left ESRD GFR <15 on CUSTOMER SUCCESS REPRESENTATIVE Lab Order: CBC with Diff; SPEC'M 10/19/16 09:18 Test: WHITE BLOOD COUNT; Value: 12.7; Range: 4.0-10.0; Abnormal: Above high normal; Units: K/mm3; Status: F Test: RED BLOOD COUNT; Value: 4.65; Range: 4.00-5.40; Units: M/mm3; Status: F Test: HEMOGLOBIN; Value: 14.3; Range: 12.0-16.0; Units: g/dl; Status: F Test: HEMATOCRIT; Value: 45.6; Range: 36.0-47.0; Units: %; Status: F Test: MEAN CORPUSCULAR VOLUME; Value: 98.1; Range: 80.0-96.0; Abnormal: Above high normal; Units: fl; Status: F Test: MEAN CORPUSCULAR HEMOGLOBIN; Value: 30.7; Range: 27.0-33.0; Units: pg; Status: F Test: MEAN CORPUSCULAR HGB CONC; Value: 31.3; Range: 32.0-36.5; Abnormal: Below low normal; Units: g/dl; Status: F Test: RED CELL DISTRIBUTION WIDTH; Value: 14.3; Range: 11.5-14.5; Units: %; Status: F Test: PLATELET COUNT, AUTOMATED; Value: 372; Range: 150-450; Units: k/mm3; Status: F Test: NEUTROPHILS %; Value: 68.3; Range: 36.0-66.0; Abnormal: Above high normal; Units: %; Status: F Test: LYMPH %; Value: 18.8; Range: 24.0-44.0; Abnormal: Below low normal; Units: %; Status: F Test: MONO %; Value: 10.3; Range: 0.0-5.0; Abnormal: Above high normal; Units: %; Status: F Test: EOS %; Value: 0.4; Range: 0.0-3.0; Units: %; Status: F Test: BASO %; Value: 0.4; Range: 0.0-1.0; Units: %; Status: F Test: LARGE UNSTAINED CELL %; Value: 1.8; Range: 0.0-4.0; Units: %; Status: F Test: NEUTROPHILS #; Value: 8.7; Range: 1.8-7.7; Abnormal: Above high normal; Units: K/mm3; Status: F Test: LYMPH #; Value: 2.4; Range: 1.5-4.5; Units: K/mm3; Status: F Test: MONO #; Value: 1.3; Range: 0.0-0.8; Abnormal: Above high normal; Units: K/mm3; Status: F Test: EOS #; Value: 0.0; Range: 0.0-0.50; Units: K/mm3; Status: F Test: BASO #; Value: 0.0; Range: 0.0-0.2; Units: K/mm3; Status: F Test: LARGE UNSTAINED CELL #; Value: 0.2; Range: 0.0-0.4; Units: K/mm3; Status: F Lab Order: Cardiac Injury Profile; SPEC'M 10/19/16 09:17 Test: CPK CREATINE PHOSPHOKINASE; Value: 34; Range: 26-192; Units: U/L; Status: F Test: CK-MB VALUE MASS; Value: 2.4; Range: 0.0-3.6; Units: NG/ML; Status: F Test: MB/CK RELATIVE INDEX; Value: 7.05; Range: < OR =4; Abnormal: Above high normal; Status: F Test Note: ; DIAGNOSIS CRITERIA MMB ng/ml Relative Index (RI) NON-AMI < or = 5 N/A RICHARDS ZONE > 5 < or = 4 AMI > 5 > 4 Lab Order: Troponin; SPEC'M 10/19/16 09:17 Test: TROPONIN I; Value: < 0.02; Range: < 0.10; Units: NG/ML; Status: F Test Note: ; Troponin I Reference Interval for [facility] LOCI: 99th Percentile= 0.00-0.045 ng/ml Risk Stratification: <= 0.10 ng/ml Decreased Risk for Adverse Clinical Events. 0.10-1.50 ng/ml Increased Risk for Adverse Clinical Events. Evaluation of additional criterion and/or repeat testing in 2-6 hours is suggested to rule out myocardial damage. >= 1.50 ng/ml Indicative of Myocardial Injury. Lab Order: Lactic Acid (Richards tube on ice); SPEC'10/19/16 09:18 Test: LACTIC ACID LEVEL, LACTATE; Value: 0.4; Range: 0.4-2.0; Units: MMOL/L; Status: F Lab Order: -Arterial Blood Gas: 1.5 hours after BIPAP; SPEC'10/19/16 11:38 Test: ABG pH (ARTERIAL); Value: 7.258; Range: 7.350-7.450; Abnormal: Below low normal; Units: UNITS; Status: F Test: ABG PARTIAL PRESSURE CO2; Value: 66.2; Range: 35.0-45.0; Abnormal: Above upper panic limits; Units: mmHg; Status: F Test: ABG PARTIAL PRESSURE O2; Value: 79.5; Range: 75.0-100.0; Units: mmHg; Status: F Test: ABG TOTAL CO2; Value: 30.9; Range: 23.0-31.0; Units: MEQ/L; Status: F Test: ABG HCO3; Value: 28.9; Range: 22.0-26.0; Abnormal: Above high normal; Units: MEQ/L; Status: F Test: ABG BASE EXCESS; Value: 0.3; Range: -2.0-2.0; Status: F Test: ABG STANDARD HCO3; Value: 24.7; Range: 22.0-26.0; Units: MEQ/L; Status: F Test: ABG O2 SATURATION; Value: 95.6; Range: 95.0-99.0; Units: %; Status: F Test: ABG DEVICE; Value: NASAL ONEAL; Status: F Lab Order: LIVER PROFILE; SPEC'M 10/19/16 09:17 Test: AST/SGOT; Value: 9; Range: 15-37; Abnormal: Below low normal; Units: U/L; Status: F Test: ALT/SGPT; Value: 25; Range: 12-78; Units: U/L; Status: F Test: ALKALINE PHOSPHATASE; Value: 76; Range: 45-117; Units: U/L; Status: F Test: BILIRUBIN,TOTAL; Value: 0.2; Range: 0.2-1.0; Units: MG/DL; Status: F Test: BILIRUBIN,DIRECT; Value: < 0.1; Range: 0.0-0.2; Units: MG/DL; Status: F Test: TOTAL PROTEIN; Value: 7.8; Range: 6.4-8.2; Units: GM/DL; Status: F Test: ALBUMIN; Value: 3.3; Range: 3.2-5.2; Units: GM/DL; Status: F Test: ALBUMIN/GLOBULIN RATIO; Value: 0.73; Range: 1.00-1.93; Abnormal: Below low normal; Status: F Lab Order: -Influenza A&B Rapid Antigen - Nose; SPEC'M 10/19/16 13:02 Test: INFLUENZA A RAPID SCR by ICA; Value: INFLUENZA A RESULTS NEGATIVE; Status: F Test: INFLUENZA A RAPID SCR by ICA; Value: Comments:; Status: F Test: INFLUENZA B RAPID SCR by ICA; Value: INFLUENZA B RESULTS NEGATIVE; Status: F Test Note: ; The Influenza test is a direct rapid immunoassay for the qualitative detection of Influenza viral antigen. Cell culture (Viral Culture) testing should be considered to confirm NEGATIVE results and to assist in detecting other viruses that can provide similar clinical symptoms. Please contact the lab within 24 hours ([phone]) if confirmatory testing is desired. Lab Order: D-Dimer Quant; SPEC'M 10/19/16 09:17 Test: D-DIMER QUANT; Value: < 270.0; Range: <500; Units: ng/ml; Status: F Outcome: 13:19 Decision to Hospitalize by Provider. sd1 14:12 No special radiology studies were completed. dsf 14:46 Discharge Assessment: Patient awake, alert and oriented x 3. No cognitive and/or dsf functional deficits noted. Patient verbalized understanding of disposition instructions. patient administered narcotics - no. The following High Risk Discharge criteria are identified: None. Admitted to ICU accompanied by nurse, accompanied by tech, family with patient, via stretcher, with oxygen, on monitor, with chart. Condition: stable. Property :Personal belongings accompany Pt. 14:50 Patient left the ED. dsf Signatures: Dot Wong MD MD sd1 Lainey Mares RN RN Jonnie De La Rosa, RN RN Kamilla Palacios, Timothy Reg gb Christa Mark kt1 Caitlin Kasper, CUPOLA LINER HELPER CUPOLA LINER HELPER ct3 Jessica Jarquin RN RN dsf Sofia Ingram Marlynn mm15 Corrections: (The following items were deleted from the chart) 13:03 12:13 BP 143 / 77 Auto; dsf dsf 14:49 14:45 BP 134 / 74; Pulse 107bpm; Resp 22bpm; Pulse Ox 97% 02 30% BiPAP; Temp 97.1F dsf Temporal; Pain 0/10; dsf Chart Complete MTDD
--- NOTE | 2016-10-21 15:51 | EDDOCDS ---
Physician Documentation [facility] Name: Allison Weiss Age: 60 yrs Sex: Female : 1955 Arrival Date: 10/19/2016 Time: 09:02 Bed 13 Private MD: Khadijah Thomas Disposition: 10/19/16 13:19 Hospitalization ordered by Nura Espinoza for Inpatient Admission. Preliminary diagnosis is Respiratory failure, unspecified with hypercapnia. - Bed requested for M ICU. - Status is Inpatient Admission. dsf - Condition is Stable. - Problem is new. - Symptoms have improved. Historical: - Allergies: no known allergies; - Home Meds: 1. Xanax 1 mg Oral tab four times a day 2. potassium chloride 20 mEq Oral TbER once daily 3. hydrocodone-acetaminophen 5-325 mg Oral tab every 8 hours as needed 4. Carafate 1 gram Oral tab three times a day 5. metformin 500 mg Oral tab 2 tabs 2 times per day 6. Cipro 500 mg Oral tab 1 tab every 12 hours 7. furosemide 40 mg Oral tab once daily 8. prednisone 5 mg oral TbEC three times a day 9. Oxygen 1.5 liters at night as needed - PMHx: CHF; COPD; Diabetes - NIDDM: controlled; - Social history: Smoking status: Patient uses tobacco products, heavy tobacco smoker. No barriers to communication noted, The patient speaks fluent Belarusian, Speaks appropriately for age. - Family history: Not pertinent. - : The pt / caregiver states he / she is not on anticoagulants. Home medication list is obtained from the patient. - Exposure Risk Screening:: None identified. Vital Signs: 10/19 09:03 BP 103 / 66; Pulse 119; Resp 22; Temp 98.7(O); Pulse Ox 84% ; Weight 90.26 kg / 198.99 cmb lbs; Height 5 ft. 5 in. (165.10 cm); Pain 7/10; 09:23 BP 97 / 55 (auto/); dsf 09:24 Pulse 94 MON; Pulse Ox 96% ; dsf 09:48 BP 105 / 69 (auto/); dsf 09:48 Pulse 98 MON; Pulse Ox 97% ; dsf 10:21 BP 130 / 84 (auto/); dsf 10:21 Pulse 108 MON; Pulse Ox 97% ; dsf 10:35 BP 99 / 56 (auto/); dsf 10:35 Pulse 66 MON; Pulse Ox 100% ; dsf 10:44 Resp 33; dsf 10:57 Pulse 114 MON; Pulse Ox 95% ; dsf 10:59 BP 134 / 76 (auto/); dsf 11:01 Resp 27; dsf 11:06 BP 134 / 83 (auto/); dsf 11:06 Pulse 110 MON; Pulse Ox 94% ; dsf 11:21 BP 133 / 82 (auto/); dsf 11:21 Pulse 110 MON; Pulse Ox 95% ; dsf 11:36 BP 122 / 69 (auto/); dsf 11:37 Pulse 108 MON; Pulse Ox 79% ; dsf 11:51 BP 122 / 71 (auto/); dsf 11:51 Pulse 104 MON; Pulse Ox 95% ; dsf 12:06 BP 123 / 61 (auto/); dsf 12:06 Pulse 104 MON; Pulse Ox 91% ; dsf 12:13 Temp 97.5(TE); dsf 12:13 BP 143 / 77 (auto/); Resp 23; dsf 12:21 BP 135 / 72 (auto/); dsf 12:22 Pulse 104 MON; Pulse Ox 97% ; dsf 12:40 BP 101 / 65 (auto/); dsf 12:42 Pulse 88 MON; Pulse Ox 96% ; dsf 12:57 BP 143 / 78 (auto/); dsf 12:57 Pulse 106 MON; Pulse Ox 92% ; dsf 13:06 BP 119 / 71 (auto/); dsf 13:06 Pulse 98 MON; Pulse Ox 97% ; dsf 13:21 BP 115 / 68 (auto/); dsf 13:22 Pulse 104 MON; Pulse Ox 96% ; dsf 13:51 BP 134 / 79 (auto/); dsf 13:53 Pulse 106 MON; Pulse Ox 96% ; dsf 13:58 BP 134 / 74 (auto/); dsf 13:58 Pulse 108 MON; Pulse Ox 95% ; dsf 14:06 BP 124 / 68 (auto/); dsf 14:07 Pulse 104 MON; Pulse Ox 95% ; dsf 14:21 BP 137 / 68 (auto/); dsf 14:21 Pulse 112 MON; Pulse Ox 96% ; dsf 14:36 BP 138 / 56 (auto/); dsf 14:40 Pulse 114 MON; Pulse Ox 91% ; dsf 14:45 BP 134 / 74; Pulse 107; Resp 31; Temp 97.1(TE); Pulse Ox 97% on 30% BiPAP; Pain 0/10; dsf 09:03 Body Mass Index 33.11 (90.26 kg, 165.10 cm) cmb MDM: 09:10 -Blood Culture (Adults Only), peripheral from different site, or from device/port/PICC sd1 etc. if present ordered. 09:10 Call Respiratory ordered. sd1 09:10 Stove Tender/Pulse Ox/q 15 min VS ordered. sd1 09:10 IV Saline Lock ordered. sd1 09:10 Oxygen at 4L/Min NC or Home dosage ordered. sd1 09:10 Rhythm Strip to chart ordered. sd1 09:11 -Arterial Blood Gas Ordered. EDMS 09:11 B-Type Natiuretic Peptide Ordered. EDMS 09:11 Basic Metabolic Profile Ordered. EDMS 09:11 CBC with Diff Ordered. EDMS 09:11 Cardiac Injury Profile Ordered. EDMS 09:11 Troponin Ordered. EDMS 09:11 Lactic Acid (Richards tube on ice) Ordered. EDMS 09:11 -Blood Culture Ordered. EDMS 09:11 Chest, 1 View Ordered. EDMS 09:11 ECG WITH READING ER PHYS+CARDIAG ordered. EDMS 09:12 Call Respiratory complete. lbd 09:13 -Blood Culture (Adults Only), peripheral from different site, or from device/port/PICC lbd etc. if present complete. 09:15 BLOOD CULTURES Ordered. EDMS 09:22 Albuterol-Ipratropium 3 ml Inhalation once ordered. sd1 09:22 Albuterol 2.5 mg Nebulizer once x3 ordered. sd1 09:23 Solu-MEDROL 125 mg IVP once ordered. sd1 09:23 NS 0.9% 500 ml IV at bolus once ordered. sd1 09:23 BED REQUEST+ADM ordered. EDMS 09:40 CBC with Diff Reviewed. sd1 09:41 NS 0.9% 500 ml IV at bolus once ordered. sd1 09:55 -Arterial Blood Gas Reviewed. sd1 10:14 Basic Metabolic Profile Reviewed. sd1 10:14 Cardiac Injury Profile Reviewed. sd1 10:14 Troponin Reviewed. sd1 10:15 NS 0.9% 1000 ml IV at bolus once ordered. sd1 10:15 NS 0.9% (Sepsis- hypotension or lactate >4mmol/L, 30ml/kg) 30 ml/kg IV at bolus once; sd1 Give in 500mL aliquots, assess for ralestotal 2700cc ordered. 10:15 Misc. Nursing Order ordered. sd1 10:15 Moxifloxacin 400 mg IV at 400 mg/hr once over 60 mins ordered. sd1 10:18 -Arterial Blood Gas: 1.5 hours after BIPAP Ordered. EDMS 10:25 LIVER PROFILE Ordered. EDMS 10:43 Basic Metabolic Profile Reviewed. sd1 10:43 Cardiac Injury Profile Reviewed. sd1 10:43 Troponin Reviewed. sd1 11:05 Basic Metabolic Profile Reviewed. sd1 11:05 Cardiac Injury Profile Reviewed. sd1 11:05 LIVER PROFILE Reviewed. sd1 11:05 Troponin Reviewed. sd1 11:27 B-Type Natiuretic Peptide Reviewed. sd1 11:37 -Influenza A&B Rapid Antigen - Nose Ordered. EDMS 11:59 Lactic Acid (Richards tube on ice) Reviewed. sd1 12:55 D-Dimer Quant Ordered. EDMS 12:59 VENTILATOR SETTINGS ordered. EDMS 13:00 Admission / Observation Status ordered. EDMS 13:00 NPO DIET ordered. EDMS 13:19 Financial registration complete. mm15 13:20 [facility] Payment Agreement was scanned into [employer] and attached to record. mm15 13:52 BIPAP INPATIENT ordered. EDMS 0104 12:03 T-Sheet-- Draft Copy was scanned into [employer] and attached to record. gb 12:04 ECG/EKG was scanned into [employer] and attached to record. gb Administered Medications: 10/19 09:35 Drug: Solu-MEDROL 125 mg [Solu-Medrol 500 mg intravenous solution (125 mg)] Route: IVP; dsf Site: left antecubital; 09:35 Drug: NS 0.9% 500 ml [sodium chloride 0.9 % injection solution] Route: IV; Rate: bolus; dsf Site: left antecubital; 10:07 Follow up: IV Status: Completed infusion; IV Intake: 500ml dsf 09:37 Drug: Albuterol-Ipratropium 3 ml [ipratropium-albuterol 0.5 mg-3 mg(2.5 mg base)/3 mL kt1 nebulization soln (3 mL)] Route: Inhalation; 09:37 Drug: Albuterol 2.5 mg [albuterol sulfate 2.5 mg/0.5 mL solution for nebulization (0.5 kt1 mL)] Route: Nebulizer; 09:44 Drug: Albuterol 2.5 mg [albuterol sulfate 2.5 mg/0.5 mL solution for nebulization (0.5 kt1 mL)] Route: Nebulizer; 10:07 Drug: NS 0.9% 500 ml [sodium chloride 0.9 % injection solution] Route: IV; Rate: bolus; dsf Site: left antecubital; 13:14 Follow up: IV Status: Completed infusion; IV Intake: 500ml dsf 10:36 Drug: Moxifloxacin 400 mg [moxifloxacin 400 mg/250 mL-sodium chloride(iso) intravenous dsf piggyback] Route: IV; Rate: 400 mg/hr; Infused Over: 60 mins; Site: left antecubital; 13:13 Follow up: IV Status: Completed infusion; IV Intake: 250ml dsf 11:00 Drug: NS 0.9% 1000 ml [sodium chloride 0.9 % injection solution] Route: IV; Rate: dsf bolus; Site: right antecubital; 13:13 Follow up: IV Status: Completed infusion; IV Intake: 1000ml dsf 12:40 Drug: NS 0.9% (Sepsis- hypotension or lactate >4mmol/L, 30ml/kg) 2707.8 mL {Note: 700 dsf ml .} Route: IV; Rate: bolus; Site: right antecubital; Signatures: Dispatcher [employer] EDPA Dot Wong MD MD sdCarol Valenzuela, Reject Opener And Filler Unit lbd Lainey Mares RN RN kpj Johnson, Bruce, RN RN Kamilla Palacios Reg Reg gb Fuller, Desiree, RN RN dsf [place] mm15 Christa Mark kt1 The chart was reviewed and I authenticate all verbal orders and agree with the evaluation and treatment provided.Corrections: (The following items were deleted from the chart) 10:25 10:23 LIVER PROFILE+LAB ordered. EDMS EDMS Attachments: 13:20 [facility] Payment Agreement mm15 10/20 12:03 T-Sheet-- Draft Copy gb 12:04 ECG/EKG gb Chart Complete MTDD
[2016-10-21] MEDS: LevoFLOXacin 500 MG TABLET PO SCH (16:03)
--- NOTE | 2016-10-21 16:20 | IPN ---
DATE: 10/21/2016 Ms. Weiss is feeling much better today. She has not complaints of pain or chest pain. No shortness of breath. She is tolerating diet and would like to restart her Lasix because her feet feel puffy. PHYSICAL EXAMINATION: Temperature is 96.8, pulse 78, respiratory rate 21, blood pressure 114/61, 94% on two liters nasal cannula. She is not usually on daytime oxygen. Intake and output (I and O) are notable for a positive fluid balance of 975 with no bowel movements noted. Weight is 98 kg with a body mass index of 33. She is awake, appropriately interactive, pleasantly conversant, moving around in bed and to bedside with ease. Mucous membranes are moist. Neck is supple, thick. Breathing is symmetrical, rested, coarse upper airway sounds. No accessory muscle use. Speaking in complete sentences. Heart is in distant sounding, normal S1, S2. Abdomen is soft, doughy, nontender. Her feet have minimal edema. LABORATORY DATA: White cell count 12.5, hemoglobin 11.6, and platelets of 267. BUN 34, creatinine 0.89 with a potassium of 5.3. ASSESSMENT: This is a 60-year-old female who presented with acute hypoxic respiratory failure and hypercapnia, was initially in the intensive care unit (ICU) on bilevel positive airway pressure (BiPAP), and is not much improved. PLAN: 1. We are treating for chronic obstructive pulmonary disease (COPD) and community-acquired pneumonia. She is much improved. We are continuing with current care. Hypotension that was present at the time of admission has resolved. 2. The patient has a history of congestive heart failure. We will give her a dose of IV Lasix today and then continue her oral dosing, as she has developed some minimal lower extremity edema. She continues to have daytime oxygen requirement and I believe that we would be able to resolve that while in the hospital prior to her discharge. 3. The patient has a history of anxiety. 4. The patient has ongoing tobacco use. We discussed smoking cessation at length. She has previously used Wellbutrin, has never use Chantix, and has had limited success with nicotine replacement therapy. Wellbutrin did give her disturbed dreams. 5. The patient will be discharged in the next 1-2 days.
[2016-10-21 20:30] VITALS: BP 124/64
[2016-10-22] MEDS: ALPRAZolam 0.5 MG TAB PO PRN ×3 (01:09→20:34)
[2016-10-22 06:05] VITALS: BP 147/78
[2016-10-22] MEDS: ADVAIR DISKUS 250/50 INH PWD INH SCH ×2 (06:18→19:26)
[2016-10-22] MEDS: IPRATROPIUM 0.5MG/ALBUTEROL 2.5MG INH SOL UD 3ML (DUONEB)(J7620) NEB SCH ×4 (06:18→19:27)
[2016-10-22] MEDS: TIOTROPIUM INHALER/CAPSULE (SPIRIVA) INH SCH (06:18)
[2016-10-22 07:06] LABS: MEAN CORPUSCULAR HEMOGLOBIN 30.2 pg (27.0-33.0); MEAN CORPUSCULAR HGB CONC 31.5 g/dl (32.0-36.5); MEAN CORPUSCULAR VOLUME 96.1 fl (80.0-96.0); RED CELL DISTRIBUTION WIDTH 15.2 % (11.5-14.5); WHITE BLOOD COUNT 11.8 K/mm3 (4.0-10.0)
[2016-10-22 07:36] LABS: ANION GAP 8 MEQ/L (8-16); BLOOD UREA NITROGEN 26 MG/DL (7-18); CALCIUM LEVEL 9.2 MG/DL (8.8-10.2); CARBON DIOXIDE LEVEL 31 MEQ/L (21-32); CHLORIDE LEVEL 104 MEQ/L (98-107); GLOMERULAR FILTRATION RATE > 60.0 (>45); GLUCOSE, FASTING 105 MG/DL (80-110); POTASSIUM SERUM 4.3 MEQ/L (3.5-5.1); SODIUM LEVEL 143 MEQ/L (136-145)
[2016-10-22] MEDS: SUCRALFATE 1 GM TAB PO SCH ×3 (08:27→20:31)
[2016-10-22] MEDS: predniSONE 20 MG TAB PO SCH (08:27)
[2016-10-22] MEDS: HumaLOG INSULIN (NovoLOG) PER UNIT SC SCH ×4 (08:28→20:32)
[2016-10-22] MEDS: ASPIRIN 81 MG ENTERIC TAB PO SCH (08:28)
[2016-10-22] MEDS: DOCUSATE SODIUM 100 MG CAP PO SCH ×2 (08:28→20:30)
[2016-10-22] MEDS: ENOXAPARIN 40 MG/0.4 ML SYRINGE (J1650) SC SCH (08:29)
[2016-10-22] MEDS: NICOTINE 14 MG/24 HR TRANSDERMAL TD SCH (08:30)
[2016-10-22] MEDS: ANEXSIA, NORCO 7.5MG/325MG TABLET(HYDROCODONE/APAP) PO PRN (08:41)
[2016-10-22] MEDS: FUROSEMIDE 40 MG TAB PO SCH ×2 (12:17→20:31)
[2016-10-22 14:00] VITALS: BP 123/64
[2016-10-22] MEDS: LevoFLOXacin 500 MG TABLET PO SCH (14:41)
[2016-10-22 20:20] VITALS: BP 113/64
[2016-10-23] MEDS: ACETAMINOPHEN TAB 650MG DOSE (2X325MG) PO PRN ×2 (00:46→08:13)
--- NOTE | 2016-10-23 03:55 | IPN ---
DATE OF SERVICE: 10/22/2016 Ms. Weiss has begun coughing up yellow sputum today, which is a change. She is feeling less short of breath. She is still requiring oxygen while at rest. Temperature is 98, pulse 103, respiratory rate 16, blood pressure 147/78, 91% on two liters. During the course of my exam, she drops to 87% while on room air while seated. Negative fluid balance of -1050. No bowel movements noted. She is awake and pleasantly conversant. Breathing is symmetrical, rested. No accessory muscle use. I:E ratio is 1:4. Coarse upper airway sounds throughout. No wheezes. Stable aeration when compared to yesterday. Heart is in a regular rate and rhythm. Abdomen is soft, doughy, somewhat distended, nontender. There is trace bilateral lower extremity edema. White cell count 11.8, hemoglobin 12.2, platelets of 295. BUN 26, creatinine 0.7. Sputum received today is of good quality with may white cells. My assessment is as follows: This is a 60-year-old with acute hypoxic respiratory failure and hypercapnia, who was initially in the intensive care unit (on bilevel positive airway pressure (BiPAP), and is now much improved. Plan is as follows: 1. The patient has chronic obstructive pulmonary disease (COPD) and community-acquired pneumonia. She is on appropriate antibiotics. She is beginning to have significant secretion production. I have encouraged the use of an Acapella device and the patient has provided us an excellent sputum sample to further guide our therapy. 2. The patient has a history of congestive heart failure. She does not appear to be decompensated. 3. The patient has a history of anxiety. 4. Will continue to assess patient for possible discharge on a daily basis.
[2016-10-23] MEDS: ANEXSIA, NORCO 7.5MG/325MG TABLET(HYDROCODONE/APAP) PO PRN (04:07)
[2016-10-23 05:25] VITALS: BP 111/56
[2016-10-23 06:31] LABS: MEAN CORPUSCULAR HEMOGLOBIN 30.6 pg (27.0-33.0); MEAN CORPUSCULAR HGB CONC 32.7 g/dl (32.0-36.5); MEAN CORPUSCULAR VOLUME 93.5 fl (80.0-96.0); RED CELL DISTRIBUTION WIDTH 14.3 % (11.5-14.5); WHITE BLOOD COUNT 11.8 K/mm3 (4.0-10.0)
[2016-10-23 06:53] LABS: ANION GAP 8 MEQ/L (8-16); BLOOD UREA NITROGEN 25 MG/DL (7-18); CALCIUM LEVEL 9.7 MG/DL (8.8-10.2); CARBON DIOXIDE LEVEL 35 MEQ/L (21-32); CHLORIDE LEVEL 97 MEQ/L (98-107); CREATININE FOR GFR 0.79 MG/DL (0.55-1.02); GLOMERULAR FILTRATION RATE > 60.0 (>45); GLUCOSE, FASTING 110 MG/DL (80-110); SODIUM LEVEL 140 MEQ/L (136-145)
[2016-10-23] MEDS: IPRATROPIUM 0.5MG/ALBUTEROL 2.5MG INH SOL UD 3ML (DUONEB)(J7620) NEB SCH ×2 (08:00→11:05)
[2016-10-23] MEDS: ENOXAPARIN 40 MG/0.4 ML SYRINGE (J1650) SC SCH (08:01)
[2016-10-23] MEDS: NICOTINE 14 MG/24 HR TRANSDERMAL TD SCH (08:02)
[2016-10-23] MEDS: HumaLOG INSULIN (NovoLOG) PER UNIT SC SCH ×2 (08:02→12:08)
[2016-10-23] MEDS: FUROSEMIDE 40 MG TAB PO SCH (08:03)
[2016-10-23] MEDS: DOCUSATE SODIUM 100 MG CAP PO SCH (08:03)
[2016-10-23] MEDS: ASPIRIN 81 MG ENTERIC TAB PO SCH (08:03)
[2016-10-23] MEDS: SUCRALFATE 1 GM TAB PO SCH (08:03)
[2016-10-23] MEDS: predniSONE 20 MG TAB PO SCH (08:03)
[2016-10-23] MEDS: ALPRAZolam 0.5 MG TAB PO PRN (08:13)
[2016-10-23] MEDS: TIOTROPIUM INHALER/CAPSULE (SPIRIVA) INH SCH (08:27)
[2016-10-23] MEDS: ADVAIR DISKUS 250/50 INH PWD INH SCH (08:27)
[2016-10-23] MEDS ORDERED: NICODIS TD (13:19)
[2016-10-23] MEDS ORDERED: PRED10TA PO (13:19)
[2016-10-23] MEDS ORDERED: TIOT18INH INH (13:19)
[2016-10-23] MEDS ORDERED: ADV250INH INH (13:19)
[2016-10-23] MEDS ORDERED: LEVA500T PO (13:19)
[2016-10-23] MEDS: LevoFLOXacin 500 MG TABLET PO SCH (14:05)
[2016-10-23] MEDS ORDERED: INCR1INH INH (14:37)
[2016-10-23] MEDS ORDERED: ARNU1INH3 INH (14:38)
--- NOTE | 2016-10-25 08:22 | DSES ---
DATE OF ADMISSION: 10/19/2016 DATE OF DISCHARGE: 10/23/2016 SPECIALISTS INVOLVED IN CARE: Dr. Post. No complications during her stay. No procedures performed during her stay. DISCHARGE DIAGNOSES: Acute respiratory acidosis. Obstructive lung disease. Suspected community acquired pneumonia. Congestive heart failure with diastolic dysfunction. Preserved left ventricular ejection fraction. Anxiety. Tobacco use. SUMMARY OF HOSPITALIZATION: This is a 60-year-old who presented to the emergency department with acute shortness of breath that had been increasing with sputum production over the last number of days. She was admitted to the hospitalist service in BiPAP to the intensive care unit. Was seen in consultation by Dr. Post with acute on chronic respiratory failure with hypercapnia, improved relatively quickly. At baseline, does require nighttime oxygen. Was maintained in the hospital until she was able to adequately oxygenate while ambulating. Pending discharge is a sputum culture but she has markedly improved. Blood cultures have been negative. On the day of discharge, she is doing well. She is ambulating without difficulty. Maintaining pulse oxygen saturation of 92%. She is coughing producing sputum but is much more energetic, tolerating diet. Temperature 97.8, pulse 84, respiratory rate 16, blood pressure 111/56, 91% on room air. Awake, alert, appropriately interactive, pleasantly conversant. Breathing is symmetrical. I:E ratio is 1:4. Improved aeration. Some upper airway sounds are noted. Heart: Regular rate and rhythm. Abdomen: Soft, doughy, nontender. White cell count 11.8, hemoglobin 13, platelets 269. BUN 25, creatinine 0.79. DISCHARGE INSTRUCTIONS: Followup with Dr. Carrion within 2 weeks, Dr. Thomas within 1 week. - Nicotine patch - prednisone tapering dose starting at 40 mg a day for 3 days, 20 mg a day for 3 days and 10 mg a day for 3 days. - Advair 250/50 inhaled twice daily - Spiriva inhaled daily - [place] as needed - albuterol as needed - Xanax 1 mg four times a day - aspirin 81 mg by mouth daily - Lasix 40 mg by mouth daily - metformin 500 mg by mouth twice daily - KCL 20 mEq by mouth daily - sucralfate 1 gram by mouth three times a day MTDD
== END 2016-10-23 16:02 | disposition home or self-care (01) | DRG 133 ==
LOC: M ED 09:02 → M ED INP 12:51 → M ICU 15:07 → M MSPAV 10-20 12:50
PROVIDERS: ADMIT Hospitalist; ATTEND Internal Medicine
PROC: 5A09457 Assistance with Respiratory Ventilation, 24-96 Consecutive Hours, Continuous Positive Airway Pressure (ICD-10-PCS; principal; 2016-10-19)
DX: J96.21 Acute and chronic respiratory failure with hypoxia (principal); J18.9 Pneumonia, unspecified organism; E87.2 Acidosis; I50.32 Chronic diastolic (congestive) heart failure; Z99.81 Dependence on supplemental oxygen; J44.1 Chronic obstructive pulmonary disease with (acute) exacerbation; E11.9 Type 2 diabetes mellitus without complications; F17.200 Nicotine dependence, unspecified, uncomplicated; F41.9 Anxiety disorder, unspecified; Z79.82 Long term (current) use of aspirin; Z79.84 Long term (current) use of oral hypoglycemic drugs; Z83.6 Family history of other diseases of the respiratory system; J96.22 Acute and chronic respiratory failure with hypercapnia; Z79.899 Other long term (current) drug therapy

== ENCOUNTER 2016-11-20 20:50 | Emergency (ER) | payer MEDICAID, OTHER, SELFPAY ==
[~2016-11-20 20:50] MED LIST changes: +ARNU1INH3 INH; +INCR1INH INH; +LEVA500T PO; +TIOT18INH INH
[2016-11-20] MEDS ORDERED: ONDANSETRON 4MG/2ML VIAL (J2405) As Ordered ONE (21:45)
[2016-11-20] MEDS ORDERED: methylPREDNISolone INJ 125 MG/2 ML VIAL (J2930) As Ordered ONE (21:45)
[2016-11-20 21:51] LABS: BASO # 0.1 K/mm3 (0.0-0.2); BASO % 0.6 % (0.0-1.0); EOS # 0.2 K/mm3 (0.0-0.50); EOS % 2.2 % (0.0-3.0); LARGE UNSTAINED CELL # 0.2 K/mm3 (0.0-0.4); LARGE UNSTAINED CELL % 1.6 % (0.0-4.0); LYMPH # 1.9 K/mm3 (1.5-4.5); LYMPH % 14.9 % (24.0-44.0); MEAN CORPUSCULAR HEMOGLOBIN 30.8 pg (27.0-33.0); MEAN CORPUSCULAR HGB CONC 31.9 g/dl (32.0-36.5); MEAN CORPUSCULAR VOLUME 96.7 fl (80.0-96.0); MONO % 8.4 % (0.0-5.0); NEUTROPHILS # 8.2 K/mm3 (1.8-7.7); NEUTROPHILS % 72.3 % (36.0-66.0); PLATELET COUNT, AUTOMATED 378 k/mm3 (150-450); RED CELL DISTRIBUTION WIDTH 13.7 % (11.5-14.5); WHITE BLOOD COUNT 11.3 K/mm3 (4.0-10.0)
[2016-11-20] MEDS ORDERED: hydrOXYzine 25 MG TAB As Ordered ONE (21:54)
[2016-11-20 21:59] LABS: MICROSCOPIC INDICATED? MAN YES (NO)
[2016-11-20 22:13] LABS: WBC, URINE TNTC /hpf (0-3)
[2016-11-20 22:14] LABS: ALBUMIN 2.8 GM/DL (3.2-5.2); ALKALINE PHOSPHATASE 89 U/L (45-117); ALT/SGPT 18 U/L (12-78); ANION GAP 6 MEQ/L (8-16); AST/SGOT 10 U/L (15-37); BILIRUBIN,DIRECT < 0.1 MG/DL (0.0-0.2); BILIRUBIN,TOTAL 0.2 MG/DL (0.2-1.0); BLOOD UREA NITROGEN 25 MG/DL (7-18); CALCIUM LEVEL 8.4 MG/DL (8.8-10.2); CARBON DIOXIDE LEVEL 29 MEQ/L (21-32); CHLORIDE LEVEL 108 MEQ/L (98-107); CREATININE FOR GFR 1.21 MG/DL (0.55-1.02); GLOMERULAR FILTRATION RATE 48.2 (>45); GLUCOSE, FASTING 101 MG/DL (80-110); RBC, URINE 20-30 /hpf (0-3); SODIUM LEVEL 143 MEQ/L (136-145); TOTAL PROTEIN 5.9 GM/DL (6.4-8.2)
[2016-11-20 22:15] LABS: POTASSIUM SERUM 5.6 MEQ/L (3.5-5.1); SQUAMOUS EPITHELIAL CELL URINE NONE SEEN /hpf (SMALL AMT)
[2016-11-20 22:17] LABS: BACTERIA, URINE MOD AMOUNT; HYALINE CAST, URINE NONE SEEN /lpf (0-1); MICROSCOPIC EXAM PERFORMED
[2016-11-20] MEDS ORDERED: ZOSYN 3.375 GM VIAL (J2543) As Ordered ONE (23:55)
--- NOTE | 2016-11-21 04:26 | EDDOCDS ---
Physician Documentation [facility] Name: Allison Weiss Age: 61 yrs Sex: Female : 1955 Arrival Date: 11/20/2016 Time: 20:50 Bed 17 Private MD: Khadijah Thomas Abdul Disposition: 11/21/16 04:08 Discharged to Home/Self Care. Impression: Urinary tract infection, site not specified - pyelonephritis, Vomiting, Urticaria. - Condition is Stable. - Discharge Instructions: Hives, Pyelonephritis, Adult, Nausea and Vomiting. - Prescriptions for cefpodoxime 200 mg Oral tablet - take 1 tablet by ORAL route every 12 hours for 14 days with food; 28 tablet. hydroxyzine HCl 25 mg Oral tablet - take 1 tablet by ORAL route 4 times per day as needed for hives/itching; 20 tablet. Medrol (Dylan) 4 mg Oral Tablets, Dose Pack - take 1 Pack by ORAL route as directed - follow package instructions; 1 packet. ZOFRAN ODT 4 mg - dissolve 1 tablet by ORAL route 4 times per day As needed do not chew, do not swallow whole; 10 tablet. - Medication Reconciliation, Local Pharmacy Hours form. - Follow up: Khadijah Thomas; When: Keep your scheduled appointment on Tuesday; Reason: Recheck today's complaints, Continuance of care. - Problem is an ongoing problem. - Symptoms have improved. - Notes: Keep hydrated Return to the ED for worsening symptoms, especially fever, dizziness, persistent vomiting, shortness of breath or worsening rash otherwise, keep your scheduled appointment, with your PCP on Tuesday Historical: - Allergies: no known allergies; - Home Meds: 1. Carafate 1 gram Oral tab three times a day 2. Cipro 500 mg Oral tab 1 tab every 12 hours 3. furosemide 40 mg Oral tab once daily 4. metformin 500 mg Oral tab 2 tabs 2 times per day 5. Oxygen 1.5 liters at night as needed 6. potassium chloride 20 mEq Oral TbER once daily 7. prednisone 5 mg Oral TbEC three times a day 8. hydrocodone-acetaminophen 5-325 mg Oral tab every 8 hours as needed 9. Xanax 1 mg Oral tab four times a day 10. lisinopril 10 mg Oral tab 1 tab once daily - PMHx: CHF; COPD; Diabetes - NIDDM: controlled; - PSHx: cyst removed leg; - Social history: Smoking status: Patient states former smoker of tobacco. No barriers to communication noted, The patient speaks fluent [place]ian. - Family history: Not pertinent. - : The pt / caregiver states he / she is not on anticoagulants. Home medication list is obtained from the patient. - Exposure Risk Screening:: None identified. Vital Signs: 11/20 20:53 BP 93 / 70; Pulse 115; Resp 18 S; Temp 98.7(O); Pulse Ox 97% on R/A; Weight 84.37 kg / gr2 186 lbs (R); Height 5 ft. 5 in. (165.10 cm) (R); Pain 2/10; 22:24 Pulse 96 MON; Pulse Ox 97% ; ko2 22:25 BP 86 / 49 (auto/); ko2 22:39 Pulse 94 MON; Pulse Ox 98% ; ko2 22:40 BP 88 / 54 (auto/); ko2 22:54 Pulse 94 MON; Pulse Ox 95% ; ko2 22:55 BP 90 / 54 (auto/); ko2 23:09 Pulse 94 MON; Pulse Ox 95% ; ko2 23:10 BP 97 / 50 (auto/); ko2 23:25 BP 75 / 36 (auto/); ko2 23:25 Pulse 90 MON; Pulse Ox 94% ; ko2 23:36 BP 109 / 53 (auto/); ko2 23:36 Pulse 92 MON; Pulse Ox 94% ; ko2 23:39 Pulse 92 MON; Pulse Ox 94% ; ko2 23:40 BP 104 / 55 (auto/); ko2 23:54 Pulse 90 MON; Pulse Ox 95% ; ko2 23:55 BP 104 / 55 (auto/); ko2 02/05 00:10 BP 100 / 50 (auto/); ko2 00:10 Pulse 90 MON; Pulse Ox 95% ; ko2 00:25 BP 103 / 52 (auto/); ko2 00:25 Pulse 88 MON; Pulse Ox 94% ; ko2 02:09 Pulse Ox 93% ; ko2 02:10 BP 93 / 54 (auto/); ko2 04:12 BP 111 / 61; Pulse 82; Resp 20; Temp 96.9(TE); Pulse Ox 95% on 2 lpm NC; Pain 0/10; mary ann 11/20 20:53 Body Mass Index 30.95 (84.37 kg, 165.10 cm) gr2 MDM: 11/20 21:19 NS 0.9% 1000 ml IV at bolus once ordered. le 21:19 NS 0.9% 1000 ml IV at 100 mL/hr continuous ordered. le 21:19 Ondansetron 4 mg IVP once ordered. le 21:19 IV Saline Lock ordered. le 21:19 Undress patient appropriately for examination ordered. le 21:19 Solu-MEDROL 125 mg IVP once ordered. le 21:19 hydrOXYzine 25 mg PO once ordered. le 21:19 Basic Metabolic Profile Ordered. EDMS 21:19 CBC with Diff Ordered. EDMS 21:19 Lipase Ordered. EDMS 21:19 Liver Profile Ordered. EDMS 21:20 NOTHING BY MOUTH+DIET ordered. EDMS 21:56 URINALYSIS MANUAL Ordered. EDMS 21:57 CBC with Diff Reviewed. le 22:00 MICROSCOPIC, URINE Ordered. EDMS 22:22 Basic Metabolic Profile Reviewed. le 22:22 Liver Profile Reviewed. le 22:22 URINALYSIS MANUAL Reviewed. le 22:22 MICROSCOPIC, URINE Reviewed. le 22:22 Lipase Reviewed. le 22:25 -Blood Culture (Adults Only), peripheral from different site, or from device/port/PICC le etc. if present ordered. 22:25 -Blood Culture Ordered. EDMS 22:26 Urine Culture Ordered. EDMS 22:28 Piperacillin-Tazobactam 3.375 grams IVPB once over 30 mins; dilute in 50mL of NS or D5W le ordered. 22:29 -Blood Culture (Adults Only), peripheral from different site, or from device/port/PICC ml3 etc. if present complete. 22:30 BLOOD CULTURES Ordered. EDMS 22:58 Financial registration complete. gjb 23:37 [facility] Payment Agreement was scanned into [employer] and attached to record. gjb 23:53 NS 0.9% 1000 ml IV at 250 mL/hr continuous; piggyback with abx ordered. le Administered Medications: 21:52 Drug: NS 0.9% 1000 ml [sodium chloride 0.9 % intravenous solution] Route: IV; Rate: ko2 bolus; Site: left antecubital; 23:34 Follow up: IV Status: Completed infusion; IV Intake: 1000ml ko2 21:52 Drug: Solu-MEDROL 125 mg [Solu-Medrol 500 mg intravenous solution (125 mg)] Route: IVP; ko2 Site: left antecubital; 21:57 Drug: Ondansetron 4 mg [ondansetron HCl 2 mg/mL intravenous solution (2 mL)] Route: ko2 IVP; Site: left antecubital; 21:57 Drug: hydrOXYzine 25 mg [hydroxyzine HCl 25 mg tablet (1 tabs)] Route: PO; ko2 23:34 Drug: NS 0.9% 1000 ml [sodium chloride 0.9 % intravenous solution] Route: IV; Rate: 100 ko2 mL/hr; Site: left antecubital; 11/21 00:06 Drug: NS 0.9% 1000 ml [sodium chloride 0.9 % intravenous solution] Route: IV; Rate: 250 ko2 mL/hr; Site: left antecubital; 03:43 Follow up: IV Status: Completed infusion; IV Intake: 1000ml ko2 00:07 Drug: Piperacillin-Tazobactam 3.375 grams [piperacillin-tazobactam 3.375 gram ko2 intravenous solution] Route: IVPB; Infused Over: 30 mins; Site: left antecubital; 00:49 Follow up: IV Status: Completed infusion; IV Intake: 50ml ko2 Signatures: Dispatcher [employer] Zoraida Guevara RN RN mcp Lopresti, Mary-Elizabeth, Grief Counselor Unit ml3 Nicol Christianson, INDUSTRIAL ENGINEERING PROFESSOR INDUSTRIAL ENGINEERING PROFESSOR Abelardo Bosch DO DO cs11 Shira Calabrese RN RN ko2 Ivana Elliott The chart was reviewed and I authenticate all verbal orders and agree with the evaluation and treatment provided.Corrections: (The following items were deleted from the chart) 11/20 21:56 21:19 URINALYSIS+LAB ordered. EDTN EDMS Attachments: 23:37 [facility] Payment Agreement [employer]von MTDD
--- NOTE | 2016-11-21 04:27 | EDDOCDS ---
Nurse's Notes [facility] Name: Allison Weiss Age: 61 yrs Sex: Female : 1955 Arrival Date: 11/20/2016 Time: 20:50 Bed 17 Private MD: Khadijah Thomas Abdul Diagnosis: Urinary tract infection, site not specified-pyelonephritis;Vomiting;Urticaria Presentation: 11/20 20:58 Presenting complaint: Patient states: Stomach ache, vomiting, chills, rash on abdomen mcp and back. Adult Sepsis Screening: The patient does not have new or worsening altered mentation. Patient's respiratory rate is less than 22. Systolic blood pressure is less than or equal to 100 (1 point). Patient has a qSOFA score of 1- Negative Sepsis Screen. Suicide/Homicide risk assessment- the patient denies having any suicidal and/or homicidal ideations and does not present with any other emotional, behavioral or mental health complaints. Status: Patient is not a sales service representative or dependent. Transition of care: patient was not received from another setting of care. 20:58 Acuity: MARTHA Level 3 [facility] 20:58 Method Of Arrival: Wheelchair [facility] Triage Assessment: 21:02 General: Appears uncomfortable, Behavior is cooperative. Pain: Location: abdomen Pain mcp currently is 10 out of 10 on a pain scale. HIV screening NA for this visit Offered previously. Neurological: No deficits noted. Respiratory: Airway is patent Respiratory effort is even, unlabored. GI: Reports lower abdominal pain. Derm: Skin is pink, warm & dry. Historical: - Allergies: no known allergies; - Home Meds: 1. Carafate 1 gram Oral tab three times a day 2. Cipro 500 mg Oral tab 1 tab every 12 hours 3. furosemide 40 mg Oral tab once daily 4. metformin 500 mg Oral tab 2 tabs 2 times per day 5. Oxygen 1.5 liters at night as needed 6. potassium chloride 20 mEq Oral TbER once daily 7. prednisone 5 mg Oral TbEC three times a day 8. hydrocodone-acetaminophen 5-325 mg Oral tab every 8 hours as needed 9. Xanax 1 mg Oral tab four times a day 10. lisinopril 10 mg Oral tab 1 tab once daily - PMHx: CHF; COPD; Diabetes - NIDDM: controlled; - PSHx: cyst removed leg; - Social history: Smoking status: Patient states former smoker of tobacco. No barriers to communication noted, The patient speaks fluent Guinean. - Family history: Not pertinent. - : The pt / caregiver states he / she is not on anticoagulants. Home medication list is obtained from the patient. - Exposure Risk Screening:: None identified. Screenin:54 Infection Control. gr2 11/21 02:57 Screening information is obtained from the patient. Fall risk: No risks identified. ko2 Assistance ADL's: requires no assistance with activities of daily living. Abuse/DV Screen: The patient / caregiver reports he/she is: not in a situation that causes fear, pain or injury. Nutritional screening: No deficits noted. Advance Directives: Currently, there is no health care proxy. There is no active DNR order. There is no living will. There is no Power of Overhead Door Technician. home support is adequate. Assessment: 11/20 21:41 General: Appears in no apparent distress, Behavior is appropriate for age, cooperative. ko2 Pain: Location: abdomen. Neurological: Level of Consciousness is awake, alert. Respiratory: Airway is patent Respiratory effort is even, unlabored. GI: Bowel sounds present X 4 quads. Abd is soft X 4 quads. Derm: Rash noted that is itchy. Musculoskeletal: Range of motion intact in all extremities. 23:00 General: Appears in no apparent distress, Behavior is appropriate for age, cooperative. ko2 23:00 Pain: Location: abdomen. Neurological: Level of Consciousness is awake, alert. ko2 Respiratory: Airway is patent Respiratory effort is even, unlabored. GI: Abdomen is non- distended obese. Derm:. Musculoskeletal: Range of motion intact in all extremities. 11/21 00:07 General: Appears in no apparent distress, comfortable, pt currently appears to be ko2 asleep on the stretcher. Respirations unlabored at this time. Skin warm and dry. No concerns at this time. . 01:12 General: Appears in no apparent distress, comfortable, Behavior is appropriate for age, ko2 cooperative. Pain: Location: abdomen. Neurological: Level of Consciousness is awake, alert. Respiratory: Airway is patent Respiratory effort is even, unlabored. Derm: Skin is normal. 02:00 General: Appears in no apparent distress, comfortable, Behavior is appropriate for age, ko2 cooperative, Smells of. Neurological: Level of Consciousness is awake, alert. Respiratory: Airway is patent Respiratory effort is even, unlabored. Derm: Skin is normal. 03:04 General: Appears in no apparent distress, comfortable, Behavior is appropriate for age, ko2 cooperative. Neurological: Level of Consciousness is awake, alert. Respiratory: Airway is patent Respiratory effort is even, unlabored. Derm: Skin is normal. 04:25 General: Appears in no apparent distress, comfortable, Behavior is appropriate for age, ko2 cooperative. Neurological: Level of Consciousness is awake, alert. Respiratory: Airway is patent Respiratory effort is even, unlabored. Derm: Skin is normal. Vital Signs: 11/20 20:53 BP 93 / 70; Pulse 115; Resp 18 S; Temp 98.7(O); Pulse Ox 97% on R/A; Weight 84.37 kg gr2 (R); Height 5 ft. 5 in. (165.10 cm) (R); Pain 2/10; 22:24 Pulse 96 MON; Pulse Ox 97% ; ko2 22:25 BP 86 / 49 (auto/); ko2 22:39 Pulse 94 MON; Pulse Ox 98% ; ko2 22:40 BP 88 / 54 (auto/); ko2 22:54 Pulse 94 MON; Pulse Ox 95% ; ko2 22:55 BP 90 / 54 (auto/); ko2 23:09 Pulse 94 MON; Pulse Ox 95% ; ko2 23:10 BP 97 / 50 (auto/); ko2 23:25 BP 75 / 36 (auto/); ko2 23:25 Pulse 90 MON; Pulse Ox 94% ; ko2 23:36 BP 109 / 53 (auto/); ko2 23:36 Pulse 92 MON; Pulse Ox 94% ; ko2 23:39 Pulse 92 MON; Pulse Ox 94% ; ko2 23:40 BP 104 / 55 (auto/); ko2 23:54 Pulse 90 MON; Pulse Ox 95% ; ko2 23:55 BP 104 / 55 (auto/); ko2 11/21 00:10 BP 100 / 50 (auto/); ko2 00:10 Pulse 90 MON; Pulse Ox 95% ; ko2 00:25 BP 103 / 52 (auto/); ko2 00:25 Pulse 88 MON; Pulse Ox 94% ; ko2 02:09 Pulse Ox 93% ; ko2 02:10 BP 93 / 54 (auto/); ko2 04:12 BP 111 / 61; Pulse 82; Resp 20; Temp 96.9(TE); Pulse Ox 95% on 2 lpm NC; Pain 0/10; mary ann 11/20 20:53 Body Mass Index 30.95 (84.37 kg, 165.10 cm) gr2 Vitals: 11/20 20:53 Log In Time: November 20, 2016 at 20:53. gr2 ED Course: 20:52 Patient visited by Lamonte Roque. gr2 20:52 Patient moved to Waiting gr2 20:53 Khadijah Thomas is Private Physician. gr2 20:55 Patient visited by Lamonte Roque. gr2 20:55 Patient moved to Pre RCE gr2 20:59 Triage Initiated mcp 21:02 Patient visited by Zoraida Pedro RN. mcp 21:05 Shira Calabrese RN is Primary Nurse. mcp 21:05 Nicol Christianson FNP is PHCP. le 21:05 Patient moved to 17 mcp 21:09 Patient visited by Nicol Christianson FNP. le 21:09 Patient visited by Nicol Christianson FNP. le 21:12 Patient visited by Caitlin Gilliam PCA. mary ann 21:12 Pt greeted and oriented to ED. Patient advised of names of staff involved in care, mary ann location of call jensen, wait times and NPO status. Accompanied by Significant Other, Patient has correct armband on for positive identification. Placed in gown. Call light in reach. Side rails up X2. monitor and storage bin tender on. Pulse ox on. NIBP on. 21:41 Basic Metabolic Profile Sent. ko2 21:41 CBC with Diff Sent. ko2 21:41 Lipase Sent. ko2 21:41 Liver Profile Sent. ko2 21:42 Inserted saline lock: 20 gauge in left antecubital area and blood collected. ko2 21:57 URINALYSIS MANUAL Sent. ko2 21:58 Patient visited by Shira Calabrese RN. ko2 22:50 Patient visited by Shira Calabrese,NICHELLE. ko2 23:19 BLOOD CULTURES Sent. cln 23:37 [facility] [place] Agreement was scanned into [employer] and attached to record. gjb 23:47 Patient visited by Shira Calabrese RN. ko2 02 00:49 Patient visited by Caitlin Gilliam PCA. mary ann 01:13 Patient visited by Shira Calabrese RN. ko2 02:09 Patient visited by Shira Calabrese RN. ko2 02:57 The patient / caregiver is instructed regarding the plan of care and ED course. ko2 03:04 Patient visited by Shira Calabrese RN. ko2 03:43 Patient visited by Shira Calabrese RN. ko2 04:08 Khadijah Thomas is Referral Physician. cs11 04:08 Abelardo Kohler DO is Attending Physician. cs11 04:13 Patient visited by Caitlin Gilliam PCA. mary ann 04:25 Discontinued lock intact, bleeding controlled, pressure dressing applied, No ko2 redness/swelling at site. No procedures done that require assistance. Administered Medications: 11/20 21:52 Drug: NS 0.9% 1000 ml [sodium chloride 0.9 % intravenous solution] Route: IV; Rate: ko2 bolus; Site: left antecubital; 23:34 Follow up: IV Status: Completed infusion; IV Intake: 1000ml ko2 21:52 Drug: Solu-MEDROL 125 mg [Solu-Medrol 500 mg intravenous solution (125 mg)] Route: IVP; ko2 Site: left antecubital; 21:57 Drug: Ondansetron 4 mg [ondansetron HCl 2 mg/mL intravenous solution (2 mL)] Route: ko2 IVP; Site: left antecubital; 21:57 Drug: hydrOXYzine 25 mg [hydroxyzine HCl 25 mg tablet (1 tabs)] Route: PO; ko2 23:34 Drug: NS 0.9% 1000 ml [sodium chloride 0.9 % intravenous solution] Route: IV; Rate: 100 ko2 mL/hr; Site: left antecubital; 11/21 00:06 Drug: NS 0.9% 1000 ml [sodium chloride 0.9 % intravenous solution] Route: IV; Rate: 250 ko2 mL/hr; Site: left antecubital; 03:43 Follow up: IV Status: Completed infusion; IV Intake: 1000ml ko2 00:07 Drug: Piperacillin-Tazobactam 3.375 grams [piperacillin-tazobactam 3.375 gram ko2 intravenous solution] Route: IVPB; Infused Over: 30 mins; Site: left antecubital; 00:49 Follow up: IV Status: Completed infusion; IV Intake: 50ml ko2 Intake: 11/20 23:34 IV: 1000.00ml; Total: 1000.00ml. ko2 11/21 00:49 IV: 50.00ml; Total: 1050.00ml. ko2 03:43 IV: 1000.00ml; Total: 2050.00ml. ko2 Order Results: Lab Order: Basic Metabolic Profile; SPEC'M 11/20/16 21:39 Test: GLUCOSE, FASTING; Value: 101; Range: 80-110; Units: MG/DL; Status: F Test: BLOOD UREA NITROGEN; Value: 25; Range: 7-18; Abnormal: Above high normal; Units: MG/DL; Status: F Test: CREATININE FOR GFR; Value: 1.21; Range: 0.55-1.02; Abnormal: Above high normal; Units: MG/DL; Status: F Test: GLOMERULAR FILTRATION RATE; Value: 48.2; Range: >45; Status: F Test: SODIUM LEVEL; Value: 143; Range: 136-145; Units: MEQ/L; Status: F Test: POTASSIUM SERUM; Value: 5.6; Range: 3.5-5.1; Abnormal: Above high normal; Units: MEQ/L; Status: F Test: CHLORIDE LEVEL; Value: 108; Range: 98-107; Abnormal: Above high normal; Units: MEQ/L; Status: F Test: CARBON DIOXIDE LEVEL; Value: 29; Range: 21-32; Units: MEQ/L; Status: F Test: ANION GAP; Value: 6; Range: 8-16; Abnormal: Below low normal; Units: MEQ/L; Status: F Test: CALCIUM LEVEL; Value: 8.4; Range: 8.8-10.2; Abnormal: Below low normal; Units: MG/DL; Status: F Test Note: ; Units are mL/min/1.73 m2 Chronic Kidney Disease Staging per NKF: Stage I & II GFR >=60 Normal to Mildly Decreased Stage III GFR 30-59 Moderately Decreased Stage IV GFR 15-29 Severely Decreased Stage V GFR <15 Very Little GFR Left ESRD GFR <15 on SPECIAL ASSETS OFFICER Lab Order: CBC with Diff; SPEC'M 11/20/16 21:39 Test: WHITE BLOOD COUNT; Value: 11.3; Range: 4.0-10.0; Abnormal: Above high normal; Units: K/mm3; Status: F Test: RED BLOOD COUNT; Value: 3.40; Range: 4.00-5.40; Abnormal: Below low normal; Units: M/mm3; Status: F Test: HEMOGLOBIN; Value: 10.5; Range: 12.0-16.0; Abnormal: Below low normal; Units: g/dl; Status: F Test: HEMATOCRIT; Value: 32.9; Range: 36.0-47.0; Abnormal: Below low normal; Units: %; Status: F Test: MEAN CORPUSCULAR VOLUME; Value: 96.7; Range: 80.0-96.0; Abnormal: Above high normal; Units: fl; Status: F Test: MEAN CORPUSCULAR HEMOGLOBIN; Value: 30.8; Range: 27.0-33.0; Units: pg; Status: F Test: MEAN CORPUSCULAR HGB CONC; Value: 31.9; Range: 32.0-36.5; Abnormal: Below low normal; Units: g/dl; Status: F Test: RED CELL DISTRIBUTION WIDTH; Value: 13.7; Range: 11.5-14.5; Units: %; Status: F Test: PLATELET COUNT, AUTOMATED; Value: 378; Range: 150-450; Units: k/mm3; Status: F Test: NEUTROPHILS %; Value: 72.3; Range: 36.0-66.0; Abnormal: Above high normal; Units: %; Status: F Test: LYMPH %; Value: 14.9; Range: 24.0-44.0; Abnormal: Below low normal; Units: %; Status: F Test: MONO %; Value: 8.4; Range: 0.0-5.0; Abnormal: Above high normal; Units: %; Status: F Test: EOS %; Value: 2.2; Range: 0.0-3.0; Units: %; Status: F Test: BASO %; Value: 0.6; Range: 0.0-1.0; Units: %; Status: F Test: LARGE UNSTAINED CELL %; Value: 1.6; Range: 0.0-4.0; Units: %; Status: F Test: NEUTROPHILS #; Value: 8.2; Range: 1.8-7.7; Abnormal: Above high normal; Units: K/mm3; Status: F Test: LYMPH #; Value: 1.9; Range: 1.5-4.5; Units: K/mm3; Status: F Test: MONO #; Value: 1.0; Range: 0.0-0.8; Abnormal: Above high normal; Units: K/mm3; Status: F Test: EOS #; Value: 0.2; Range: 0.0-0.50; Units: K/mm3; Status: F Test: BASO #; Value: 0.1; Range: 0.0-0.2; Units: K/mm3; Status: F Test: LARGE UNSTAINED CELL #; Value: 0.2; Range: 0.0-0.4; Units: K/mm3; Status: F Lab Order: Lipase; [facility] 11/20/16 21:39 Test: LIPASE; Value: 105; Range: 73-393; Units: U/L; Status: F Lab Order: Liver Profile; [facility] 11/20/16 21:39 Test: AST/SGOT; Value: 10; Range: 15-37; Abnormal: Below low normal; Units: U/L; Status: F Test: ALT/SGPT; Value: 18; Range: 12-78; Units: U/L; Status: F Test: ALKALINE PHOSPHATASE; Value: 89; Range: 45-117; Units: U/L; Status: F Test: BILIRUBIN,TOTAL; Value: 0.2; Range: 0.2-1.0; Units: MG/DL; Status: F Test: BILIRUBIN,DIRECT; Value: < 0.1; Range: 0.0-0.2; Units: MG/DL; Status: F Test: TOTAL PROTEIN; Value: 5.9; Range: 6.4-8.2; Abnormal: Below low normal; Units: GM/DL; Status: F Test: ALBUMIN; Value: 2.8; Range: 3.2-5.2; Abnormal: Below low normal; Units: GM/DL; Status: F Test: ALBUMIN/GLOBULIN RATIO; Value: 0.90; Range: 1.00-1.93; Abnormal: Below low normal; Status: F Lab Order: URINALYSIS MANUAL; SPEC'M 11/20/16 21:39 Test: APPEARANCE, URINE MANUAL; Value: CLOUDY; Range: CLEAR; Abnormal: Above high normal; Status: F Test: COLOR, URINE MANUAL; Value: YELLOW; Range: YELLOW; Status: F Test: PH,URINE MAN; Value: 5.0; Range: 5.0 - 9.0; Units: UNITS; Status: F Test: SPECIFIC GRAVITY,URINE MANUAL; Value: 1.020; Range: 1.002-1.035; Status: F Test: PROTEIN, URINE MANUAL; Value: NEGATIVE; Range: NEGATIVE; Units: mg/dL; Status: F Test: GLUCOSE, URINE (UA) MANUAL; Value: NEGATIVE; Range: NEGATIVE; Units: mg/dL; Status: F Test: KETONE, URINE MANUAL; Value: NEGATIVE; Range: NEGATIVE; Units: mg/dL; Status: F Test: UROBILINOGEN, URINE MANUAL; Value: NORMAL; Range: NORMAL; Units: mg/dl; Status: F Test: BILIRUBIN, URINE MANUAL; Value: NEGATIVE; Range: NEGATIVE; Status: F Test: NITRITE, URINE MANUAL; Value: NEGATIVE; Range: NEGATIVE; Status: F Test: LEUKOCYTE ESTERASE, URINE MAN; Value: POSITIVE; Range: NEGATIVE; Abnormal: Above high normal; Status: F Test: BLOOD URINE MANUAL; Value: POSITIVE; Range: NEGATIVE; Abnormal: Above high normal; Status: F Lab Order: MICROSCOPIC, URINE; SPEC'M 11/20/16 21:39 Test: WBC, URINE; Value: TNTC; Range: 0-3; Abnormal: Above high normal; Units: /hpf; Status: F Test: RBC, URINE; Value: 20-30; Range: 0-3; Abnormal: Above high normal; Units: /hpf; Status: F Test: SQUAMOUS EPITHELIAL CELL URINE; Value: NONE SEEN; Range: SMALL AMT; Units: /hpf; Status: F Test: BACTERIA, URINE; Value: MOD AMOUNT; Range: NONE; Abnormal: Above high normal; Status: F Test: HYALINE CAST, URINE; Value: NONE SEEN; Range: 0-1; Units: /lpf; Status: F Test: MICROSCOPIC EXAM; Value: PERFORMED; Status: F Outcome: 04:08 Discharge ordered by Provider. cs11 04:25 Discharge Assessment: Patient awake, alert and oriented x 3. No cognitive and/or ko2 functional deficits noted. Patient verbalized understanding of disposition instructions. patient administered narcotics - no. The following High Risk Discharge criteria are identified: None. Discharged to home ambulatory, with significant other. Condition: good. No special radiology studies were completed. Property sent home with patient. 04:26 Patient left the ED. ko2 Signatures: Zoraida Pedro, RN RN Nicol Arana, BUSINESS PARTNER BUSINESS PARTNER Caitlin Mcdaniel, TUBE OPERATOR TUBE OPERATOR Abelardo Shay DO DO cs11 Lamonte Roque gr2 Shira Calabrese RN RN ko2 Ivana Elliott Crystal, TUBE OPERATOR TUBE OPERATOR cln Corrections: (The following items were deleted from the chart) 11/20 21:56 21:41 URINALYSIS+LAB sent. ko2 EDMS MTDD
--- NOTE | 2016-11-23 05:26 | EDDOCDS ---
Physician Documentation [facility] Name: Allison Weiss Age: 61 yrs Sex: Female : 1955 Arrival Date: 11/20/2016 Time: 20:50 Bed 17 Private MD: Khadijah Thomas Abdul Disposition: 11/21/16 04:08 Discharged to Home/Self Care. Impression: Urinary tract infection, site not specified - pyelonephritis, Vomiting, Urticaria. - Condition is Stable. - Discharge Instructions: Hives, Pyelonephritis, Adult, Nausea and Vomiting. - Prescriptions for cefpodoxime 200 mg Oral tablet - take 1 tablet by ORAL route every 12 hours for 14 days with food; 28 tablet. hydroxyzine HCl 25 mg Oral tablet - take 1 tablet by ORAL route 4 times per day as needed for hives/itching; 20 tablet. Medrol (Dylan) 4 mg Oral Tablets, Dose Pack - take 1 Pack by ORAL route as directed - follow package instructions; 1 packet. ZOFRAN ODT 4 mg - dissolve 1 tablet by ORAL route 4 times per day As needed do not chew, do not swallow whole; 10 tablet. - Medication Reconciliation, Local Pharmacy Hours form. - Follow up: Khadijah Thomas; When: Keep your scheduled appointment on Tuesday; Reason: Recheck today's complaints, Continuance of care. - Problem is an ongoing problem. - Symptoms have improved. - Notes: Keep hydrated Return to the ED for worsening symptoms, especially fever, dizziness, persistent vomiting, shortness of breath or worsening rash otherwise, keep your scheduled appointment, with your PCP on Tuesday Historical: - Allergies: no known allergies; - Home Meds: 1. Carafate 1 gram Oral tab three times a day 2. Cipro 500 mg Oral tab 1 tab every 12 hours 3. furosemide 40 mg Oral tab once daily 4. metformin 500 mg Oral tab 2 tabs 2 times per day 5. Oxygen 1.5 liters at night as needed 6. potassium chloride 20 mEq Oral TbER once daily 7. prednisone 5 mg Oral TbEC three times a day 8. hydrocodone-acetaminophen 5-325 mg Oral tab every 8 hours as needed 9. Xanax 1 mg Oral tab four times a day 10. lisinopril 10 mg Oral tab 1 tab once daily - PMHx: CHF; COPD; Diabetes - NIDDM: controlled; - PSHx: cyst removed leg; - Social history: Smoking status: Patient states former smoker of tobacco. No barriers to communication noted, The patient speaks fluent [place]. - Family history: Not pertinent. - : The pt / caregiver states he / she is not on anticoagulants. Home medication list is obtained from the patient. - Exposure Risk Screening:: None identified. Vital Signs: 11/20 20:53 BP 93 / 70; Pulse 115; Resp 18 S; Temp 98.7(O); Pulse Ox 97% on R/A; Weight 84.37 kg / gr2 186 lbs (R); Height 5 ft. 5 in. (165.10 cm) (R); Pain 2/10; 22:24 Pulse 96 MON; Pulse Ox 97% ; ko2 22:25 BP 86 / 49 (auto/); ko2 22:39 Pulse 94 MON; Pulse Ox 98% ; ko2 22:40 BP 88 / 54 (auto/); ko2 22:54 Pulse 94 MON; Pulse Ox 95% ; ko2 22:55 BP 90 / 54 (auto/); ko2 23:09 Pulse 94 MON; Pulse Ox 95% ; ko2 23:10 BP 97 / 50 (auto/); ko2 23:25 BP 75 / 36 (auto/); ko2 23:25 Pulse 90 MON; Pulse Ox 94% ; ko2 23:36 BP 109 / 53 (auto/); ko2 23:36 Pulse 92 MON; Pulse Ox 94% ; ko2 23:39 Pulse 92 MON; Pulse Ox 94% ; ko2 23:40 BP 104 / 55 (auto/); ko2 23:54 Pulse 90 MON; Pulse Ox 95% ; ko2 23:55 BP 104 / 55 (auto/); ko2 02/05 00:10 BP 100 / 50 (auto/); ko2 00:10 Pulse 90 MON; Pulse Ox 95% ; ko2 00:25 BP 103 / 52 (auto/); ko2 00:25 Pulse 88 MON; Pulse Ox 94% ; ko2 02:09 Pulse Ox 93% ; ko2 02:10 BP 93 / 54 (auto/); ko2 04:12 BP 111 / 61; Pulse 82; Resp 20; Temp 96.9(TE); Pulse Ox 95% on 2 lpm NC; Pain 0/10; mary ann 11/20 20:53 Body Mass Index 30.95 (84.37 kg, 165.10 cm) gr2 MDM: 11/20 21:19 NS 0.9% 1000 ml IV at bolus once ordered. le 21:19 NS 0.9% 1000 ml IV at 100 mL/hr continuous ordered. le 21:19 Ondansetron 4 mg IVP once ordered. le 21:19 IV Saline Lock ordered. le 21:19 Undress patient appropriately for examination ordered. le 21:19 Solu-MEDROL 125 mg IVP once ordered. le 21:19 hydrOXYzine 25 mg PO once ordered. le 21:19 Basic Metabolic Profile Ordered. EDMS 21:19 CBC with Diff Ordered. EDMS 21:19 Lipase Ordered. EDMS 21:19 Liver Profile Ordered. EDMS 21:20 NOTHING BY MOUTH+DIET ordered. EDMS 21:56 URINALYSIS MANUAL Ordered. EDMS 21:57 CBC with Diff Reviewed. le 22:00 MICROSCOPIC, URINE Ordered. EDMS 22:22 Basic Metabolic Profile Reviewed. le 22:22 Liver Profile Reviewed. le 22:22 URINALYSIS MANUAL Reviewed. le 22:22 MICROSCOPIC, URINE Reviewed. le 22:22 Lipase Reviewed. le 22:25 -Blood Culture (Adults Only), peripheral from different site, or from device/port/PICC le etc. if present ordered. 22:25 -Blood Culture Ordered. EDMS 22:26 Urine Culture Ordered. EDMS 22:28 Piperacillin-Tazobactam 3.375 grams IVPB once over 30 mins; dilute in 50mL of NS or D5W le ordered. 22:29 -Blood Culture (Adults Only), peripheral from different site, or from device/port/PICC ml3 etc. if present complete. 22:30 BLOOD CULTURES Ordered. EDMS 22:58 Financial registration complete. gjb 23:37 [facility] Payment Agreement was scanned into [employer] and attached to record. gjb 23:53 NS 0.9% 1000 ml IV at 250 mL/hr continuous; piggyback with abx ordered. le 11/21 12:01 T-Sheet-- Draft Copy was scanned into [employer] and attached to record. gb Administered Medications: 11/20 21:52 Drug: NS 0.9% 1000 ml [sodium chloride 0.9 % intravenous solution] Route: IV; Rate: ko2 bolus; Site: left antecubital; 23:34 Follow up: IV Status: Completed infusion; IV Intake: 1000ml ko2 21:52 Drug: Solu-MEDROL 125 mg [Solu-Medrol 500 mg intravenous solution (125 mg)] Route: IVP; ko2 Site: left antecubital; 21:57 Drug: Ondansetron 4 mg [ondansetron HCl 2 mg/mL intravenous solution (2 mL)] Route: ko2 IVP; Site: left antecubital; 21:57 Drug: hydrOXYzine 25 mg [hydroxyzine HCl 25 mg tablet (1 tabs)] Route: PO; ko2 23:34 Drug: NS 0.9% 1000 ml [sodium chloride 0.9 % intravenous solution] Route: IV; Rate: 100 ko2 mL/hr; Site: left antecubital; 11/21 00:06 Drug: NS 0.9% 1000 ml [sodium chloride 0.9 % intravenous solution] Route: IV; Rate: 250 ko2 mL/hr; Site: left antecubital; 03:43 Follow up: IV Status: Completed infusion; IV Intake: 1000ml ko2 00:07 Drug: Piperacillin-Tazobactam 3.375 grams [piperacillin-tazobactam 3.375 gram ko2 intravenous solution] Route: IVPB; Infused Over: 30 mins; Site: left antecubital; 00:49 Follow up: IV Status: Completed infusion; IV Intake: 50ml ko2 Signatures: Dispatcher [employer] Zoraida Guevara RN RN mcp Barnhardt, Gloria, Reg Reg Shirley Gomez, Amusement Park Entertainer Unit ml3 Nicol Christianson, WINDOWS SYSTEMS ADMINISTRATOR WINDOWS SYSTEMS ADMINISTRATOR Abelardo Bosch DO DO cs11 Shira Calabrese RN RN ko2 Ivana Elliott The chart was reviewed and I authenticate all verbal orders and agree with the evaluation and treatment provided.Corrections: (The following items were deleted from the chart) 11/20 21:56 21:19 URINALYSIS+LAB ordered. [facility] Attachments: 23:37 [facility] Payment Agreement kevon 11/21 12:01 T-Sheet-- Draft Copy gb Chart Complete MTDD
--- NOTE | 2016-11-23 05:26 | EDDOCDS ---
Nurse's Notes [facility] Name: Allison Weiss Age: 61 yrs Sex: Female : 1955 Arrival Date: 11/20/2016 Time: 20:50 Bed 17 Private MD: Khadijah Thomas Abdul Diagnosis: Urinary tract infection, site not specified-pyelonephritis;Vomiting;Urticaria Presentation: 11/20 20:58 Presenting complaint: Patient states: Stomach ache, vomiting, chills, rash on abdomen mcp and back. Adult Sepsis Screening: The patient does not have new or worsening altered mentation. Patient's respiratory rate is less than 22. Systolic blood pressure is less than or equal to 100 (1 point). Patient has a qSOFA score of 1- Negative Sepsis Screen. Suicide/Homicide risk assessment- the patient denies having any suicidal and/or homicidal ideations and does not present with any other emotional, behavioral or mental health complaints. Status: Patient is not a patient service representative or dependent. Transition of care: patient was not received from another setting of care. 20:58 [facility] T[facility] Assessment: 21:02 General: Appears uncomfortable, Behavior is cooperative. Pain: Location: abdomen Pain mcp currently is 10 out of 10 on a pain scale. HIV screening NA for this visit Offered previously. Neurological: No deficits noted. Respiratory: Airway is patent Respiratory effort is even, unlabored. GI: Reports lower abdominal pain. Derm: Skin is pink, warm & dry. Historical: - Allergies: no known allergies; - Home Meds: 1. Carafate 1 gram Oral tab three times a day 2. Cipro 500 mg Oral tab 1 tab every 12 hours 3. furosemide 40 mg Oral tab once daily 4. metformin 500 mg Oral tab 2 tabs 2 times per day 5. Oxygen 1.5 liters at night as needed 6. potassium chloride 20 mEq Oral TbER once daily 7. prednisone 5 mg Oral TbEC three times a day 8. hydrocodone-acetaminophen 5-325 mg Oral tab every 8 hours as needed 9. Xanax 1 mg Oral tab four times a day 10. lisinopril 10 mg Oral tab 1 tab once daily - PMHx: CHF; COPD; Diabetes - NIDDM: controlled; - PSHx: cyst removed leg; - Social history: Smoking status: Patient states former smoker of tobacco. No barriers to communication noted, The patient speaks fluent Palestinian. - Family history: Not pertinent. - : The pt / caregiver states he / she is not on anticoagulants. Home medication list is obtained from the patient. - Exposure Risk Screening:: None identified. Screenin:54 Infection Control. gr2 11/21 02:57 Screening information is obtained from the patient. Fall risk: No risks identified. ko2 Assistance ADL's: requires no assistance with activities of daily living. Abuse/DV Screen: The patient / caregiver reports he/she is: not in a situation that causes fear, pain or injury. Nutritional screening: No deficits noted. Advance Directives: Currently, there is no health care proxy. There is no active DNR order. There is no living will. There is no Power of Hostess Cashier. home support is adequate. Assessment: 11/20 21:41 General: Appears in no apparent distress, Behavior is appropriate for age, cooperative. ko2 Pain: Location: abdomen. Neurological: Level of Consciousness is awake, alert. Respiratory: Airway is patent Respiratory effort is even, unlabored. GI: Bowel sounds present X 4 quads. Abd is soft X 4 quads. Derm: Rash noted that is itchy. Musculoskeletal: Range of motion intact in all extremities. 23:00 General: Appears in no apparent distress, Behavior is appropriate for age, cooperative. ko2 23:00 Pain: Location: abdomen. Neurological: Level of Consciousness is awake, alert. ko2 Respiratory: Airway is patent Respiratory effort is even, unlabored. GI: Abdomen is non- distended obese. Derm:. Musculoskeletal: Range of motion intact in all extremities. 11/21 00:07 General: Appears in no apparent distress, comfortable, pt currently appears to be ko2 asleep on the stretcher. Respirations unlabored at this time. Skin warm and dry. No concerns at this time. . 01:12 General: Appears in no apparent distress, comfortable, Behavior is appropriate for age, ko2 cooperative. Pain: Location: abdomen. Neurological: Level of Consciousness is awake, alert. Respiratory: Airway is patent Respiratory effort is even, unlabored. Derm: Skin is normal. 02:00 General: Appears in no apparent distress, comfortable, Behavior is appropriate for age, ko2 cooperative, Smells of. Neurological: Level of Consciousness is awake, alert. Respiratory: Airway is patent Respiratory effort is even, unlabored. Derm: Skin is normal. 03:04 General: Appears in no apparent distress, comfortable, Behavior is appropriate for age, ko2 cooperative. Neurological: Level of Consciousness is awake, alert. Respiratory: Airway is patent Respiratory effort is even, unlabored. Derm: Skin is normal. 04:25 General: Appears in no apparent distress, comfortable, Behavior is appropriate for age, ko2 cooperative. Neurological: Level of Consciousness is awake, alert. Respiratory: Airway is patent Respiratory effort is even, unlabored. Derm: Skin is normal. Vital Signs: 11/20 20:53 BP 93 / 70; Pulse 115; Resp 18 S; Temp 98.7(O); Pulse Ox 97% on R/A; Weight 84.37 kg gr2 (R); Height 5 ft. 5 in. (165.10 cm) (R); Pain 2/10; 22:24 Pulse 96 MON; Pulse Ox 97% ; ko2 22:25 BP 86 / 49 (auto/); ko2 22:39 Pulse 94 MON; Pulse Ox 98% ; ko2 22:40 BP 88 / 54 (auto/); ko2 22:54 Pulse 94 MON; Pulse Ox 95% ; ko2 22:55 BP 90 / 54 (auto/); ko2 23:09 Pulse 94 MON; Pulse Ox 95% ; ko2 23:10 BP 97 / 50 (auto/); ko2 23:25 BP 75 / 36 (auto/); ko2 23:25 Pulse 90 MON; Pulse Ox 94% ; ko2 23:36 BP 109 / 53 (auto/); ko2 23:36 Pulse 92 MON; Pulse Ox 94% ; ko2 23:39 Pulse 92 MON; Pulse Ox 94% ; ko2 23:40 BP 104 / 55 (auto/); ko2 23:54 Pulse 90 MON; Pulse Ox 95% ; ko2 23:55 BP 104 / 55 (auto/); ko2 11/21 00:10 BP 100 / 50 (auto/); ko2 00:10 Pulse 90 MON; Pulse Ox 95% ; ko2 00:25 BP 103 / 52 (auto/); ko2 00:25 Pulse 88 MON; Pulse Ox 94% ; ko2 02:09 Pulse Ox 93% ; ko2 02:10 BP 93 / 54 (auto/); ko2 04:12 BP 111 / 61; Pulse 82; Resp 20; Temp 96.9(TE); Pulse Ox 95% on 2 lpm NC; Pain 0/10; mary ann 11/20 20:53 Body Mass Index 30.95 (84.37 kg, 165.10 cm) gr2 Vitals: 11/20 20:53 Log In Time: November 20, 2016 at 20:53. gr2 ED Course: 20:52 Patient visited by Lamonte Roque. gr2 20:52 Patient moved to Waiting gr2 20:53 Khadijah Thomas is Private Physician. gr2 20:55 Patient visited by Lamonte Roque. gr2 20:55 Patient moved to Pre RCE gr2 20:59 Triage Initiated mcp 21:02 Patient visited by Zoraida Pedro RN. mcp 21:05 Shira Calabrese RN is Primary Nurse. mcp 21:05 Nicol Christianson FNP is PHCP. le 21:05 Patient moved to 17 mcp 21:09 Patient visited by Nicol Christianson FNP. le 21:09 Patient visited by Nicol Christianson FNP. le 21:12 Patient visited by Caitlin Gilliam PCA. mary ann 21:12 Pt greeted and oriented to ED. Patient advised of names of staff involved in care, mary ann location of call jensen, wait times and NPO status. Accompanied by Significant Other, Patient has correct armband on for positive identification. Placed in gown. Call light in reach. Side rails up X2. personnel monitor on. Pulse ox on. NIBP on. 21:41 Basic Metabolic Profile Sent. ko2 21:41 CBC with Diff Sent. ko2 21:41 Lipase Sent. ko2 21:41 Liver Profile Sent. ko2 21:42 Inserted saline lock: 20 gauge in left antecubital area and blood collected. ko2 21:57 URINALYSIS MANUAL Sent. ko2 21:58 Patient visited by Shira Calabrese RN. ko2 22:50 Patient visited by Shira Calabrese,NICHELLE. ko2 23:19 BLOOD CULTURES Sent. cln 23:37 [facility] [place] was scanned into [employer] and attached to record. gjb 23:47 Patient visited by Shira Calabrese RN. ko2 02 00:49 Patient visited by Caitlin Gilliam PCA. mary ann 01:13 Patient visited by Shira Calabrese RN. ko2 02:09 Patient visited by Shira Calabrese RN. ko2 02:57 The patient / caregiver is instructed regarding the plan of care and ED course. ko2 03:04 Patient visited by Shira Calabrese RN. ko2 03:43 Patient visited by Shira Calabrese RN. ko2 04:08 Khadijah Thomas is Referral Physician. cs11 04:08 Abelardo Kohler DO is Attending Physician. cs11 04:13 Patient visited by Caitlin Gilliam PCA. mary ann 04:25 Discontinued lock intact, bleeding controlled, pressure dressing applied, No ko2 redness/swelling at site. No procedures done that require assistance. 12:01 T-Sheet-- Draft Copy was scanned into [employer] and attached to record. gb Administered Medications: 11/20 21:52 Drug: NS 0.9% 1000 ml [sodium chloride 0.9 % intravenous solution] Route: IV; Rate: ko2 bolus; Site: left antecubital; 23:34 Follow up: IV Status: Completed infusion; IV Intake: 1000ml ko2 21:52 Drug: Solu-MEDROL 125 mg [Solu-Medrol 500 mg intravenous solution (125 mg)] Route: IVP; ko2 Site: left antecubital; 21:57 Drug: Ondansetron 4 mg [ondansetron HCl 2 mg/mL intravenous solution (2 mL)] Route: ko2 IVP; Site: left antecubital; 21:57 Drug: hydrOXYzine 25 mg [hydroxyzine HCl 25 mg tablet (1 tabs)] Route: PO; ko2 23:34 Drug: NS 0.9% 1000 ml [sodium chloride 0.9 % intravenous solution] Route: IV; Rate: 100 ko2 mL/hr; Site: left antecubital; 11/21 00:06 Drug: NS 0.9% 1000 ml [sodium chloride 0.9 % intravenous solution] Route: IV; Rate: 250 ko2 mL/hr; Site: left antecubital; 03:43 Follow up: IV Status: Completed infusion; IV Intake: 1000ml ko2 00:07 Drug: Piperacillin-Tazobactam 3.375 grams [piperacillin-tazobactam 3.375 gram ko2 intravenous solution] Route: IVPB; Infused Over: 30 mins; Site: left antecubital; 00:49 Follow up: IV Status: Completed infusion; IV Intake: 50ml ko2 Intake: 11/20 23:34 IV: 1000.00ml; Total: 1000.00ml. ko2 11/21 00:49 IV: 50.00ml; Total: 1050.00ml. ko2 03:43 IV: 1000.00ml; Total: 2050.00ml. ko2 Order Results: Lab Order: Basic Metabolic Profile; SPEC'M 11/20/16 21:39 Test: GLUCOSE, FASTING; Value: 101; Range: 80-110; Units: MG/DL; Status: F Test: BLOOD UREA NITROGEN; Value: 25; Range: 7-18; Abnormal: Above high normal; Units: MG/DL; Status: F Test: CREATININE FOR GFR; Value: 1.21; Range: 0.55-1.02; Abnormal: Above high normal; Units: MG/DL; Status: F Test: GLOMERULAR FILTRATION RATE; Value: 48.2; Range: >45; Status: F Test: SODIUM LEVEL; Value: 143; Range: 136-145; Units: MEQ/L; Status: F Test: POTASSIUM SERUM; Value: 5.6; Range: 3.5-5.1; Abnormal: Above high normal; Units: MEQ/L; Status: F Test: CHLORIDE LEVEL; Value: 108; Range: 98-107; Abnormal: Above high normal; Units: MEQ/L; Status: F Test: CARBON DIOXIDE LEVEL; Value: 29; Range: 21-32; Units: MEQ/L; Status: F Test: ANION GAP; Value: 6; Range: 8-16; Abnormal: Below low normal; Units: MEQ/L; Status: F Test: CALCIUM LEVEL; Value: 8.4; Range: 8.8-10.2; Abnormal: Below low normal; Units: MG/DL; Status: F Test Note: ; Units are mL/min/1.73 m2 Chronic Kidney Disease Staging per NKF: Stage I & II GFR >=60 Normal to Mildly Decreased Stage III GFR 30-59 Moderately Decreased Stage IV GFR 15-29 Severely Decreased Stage V GFR <15 Very Little GFR Left ESRD GFR <15 on QUALITY ASSURANCE GROUP LEADER Lab Order: CBC with Diff; ALAN'David 11/20/16 21:39 Test: WHITE BLOOD COUNT; Value: 11.3; Range: 4.0-10.0; Abnormal: Above high normal; Units: K/mm3; Status: F Test: RED BLOOD COUNT; Value: 3.40; Range: 4.00-5.40; Abnormal: Below low normal; Units: M/mm3; Status: F Test: HEMOGLOBIN; Value: 10.5; Range: 12.0-16.0; Abnormal: Below low normal; Units: g/dl; Status: F Test: HEMATOCRIT; Value: 32.9; Range: 36.0-47.0; Abnormal: Below low normal; Units: %; Status: F Test: MEAN CORPUSCULAR VOLUME; Value: 96.7; Range: 80.0-96.0; Abnormal: Above high normal; Units: fl; Status: F Test: MEAN CORPUSCULAR HEMOGLOBIN; Value: 30.8; Range: 27.0-33.0; Units: pg; Status: F Test: MEAN CORPUSCULAR HGB CONC; Value: 31.9; Range: 32.0-36.5; Abnormal: Below low normal; Units: g/dl; Status: F Test: RED CELL DISTRIBUTION WIDTH; Value: 13.7; Range: 11.5-14.5; Units: %; Status: F Test: PLATELET COUNT, AUTOMATED; Value: 378; Range: 150-450; Units: k/mm3; Status: F Test: NEUTROPHILS %; Value: 72.3; Range: 36.0-66.0; Abnormal: Above high normal; Units: %; Status: F Test: LYMPH %; Value: 14.9; Range: 24.0-44.0; Abnormal: Below low normal; Units: %; Status: F Test: MONO %; Value: 8.4; Range: 0.0-5.0; Abnormal: Above high normal; Units: %; Status: F Test: EOS %; Value: 2.2; Range: 0.0-3.0; Units: %; Status: F Test: BASO %; Value: 0.6; Range: 0.0-1.0; Units: %; Status: F Test: LARGE UNSTAINED CELL %; Value: 1.6; Range: 0.0-4.0; Units: %; Status: F Test: NEUTROPHILS #; Value: 8.2; Range: 1.8-7.7; Abnormal: Above high normal; Units: K/mm3; Status: F Test: LYMPH #; Value: 1.9; Range: 1.5-4.5; Units: K/mm3; Status: F Test: MONO #; Value: 1.0; Range: 0.0-0.8; Abnormal: Above high normal; Units: K/mm3; Status: F Test: EOS #; Value: 0.2; Range: 0.0-0.50; Units: K/mm3; Status: F Test: BASO #; Value: 0.1; Range: 0.0-0.2; Units: K/mm3; Status: F Test: LARGE UNSTAINED CELL #; Value: 0.2; Range: 0.0-0.4; Units: K/mm3; Status: F Lab Order: Lipase; SPEC' 11/20/16 21:39 Test: LIPASE; Value: 105; Range: 73-393; Units: U/L; Status: F Lab Order: Liver Profile; SPEC' 11/20/16 21:39 Test: AST/SGOT; Value: 10; Range: 15-37; Abnormal: Below low normal; Units: U/L; Status: F Test: ALT/SGPT; Value: 18; Range: 12-78; Units: U/L; Status: F Test: ALKALINE PHOSPHATASE; Value: 89; Range: 45-117; Units: U/L; Status: F Test: BILIRUBIN,TOTAL; Value: 0.2; Range: 0.2-1.0; Units: MG/DL; Status: F Test: BILIRUBIN,DIRECT; Value: < 0.1; Range: 0.0-0.2; Units: MG/DL; Status: F Test: TOTAL PROTEIN; Value: 5.9; Range: 6.4-8.2; Abnormal: Below low normal; Units: GM/DL; Status: F Test: ALBUMIN; Value: 2.8; Range: 3.2-5.2; Abnormal: Below low normal; Units: GM/DL; Status: F Test: ALBUMIN/GLOBULIN RATIO; Value: 0.90; Range: 1.00-1.93; Abnormal: Below low normal; Status: F Lab Order: URINALYSIS MANUAL; SPEC'M 11/20/16 21:39 Test: APPEARANCE, URINE MANUAL; Value: CLOUDY; Range: CLEAR; Abnormal: Above high normal; Status: F Test: COLOR, URINE MANUAL; Value: YELLOW; Range: YELLOW; Status: F Test: PH,URINE MAN; Value: 5.0; Range: 5.0 - 9.0; Units: UNITS; Status: F Test: SPECIFIC GRAVITY,URINE MANUAL; Value: 1.020; Range: 1.002-1.035; Status: F Test: PROTEIN, URINE MANUAL; Value: NEGATIVE; Range: NEGATIVE; Units: mg/dL; Status: F Test: GLUCOSE, URINE (UA) MANUAL; Value: NEGATIVE; Range: NEGATIVE; Units: mg/dL; Status: F Test: KETONE, URINE MANUAL; Value: NEGATIVE; Range: NEGATIVE; Units: mg/dL; Status: F Test: UROBILINOGEN, URINE MANUAL; Value: NORMAL; Range: NORMAL; Units: mg/dl; Status: F Test: BILIRUBIN, URINE MANUAL; Value: NEGATIVE; Range: NEGATIVE; Status: F Test: NITRITE, URINE MANUAL; Value: NEGATIVE; Range: NEGATIVE; Status: F Test: LEUKOCYTE ESTERASE, URINE MAN; Value: POSITIVE; Range: NEGATIVE; Abnormal: Above high normal; Status: F Test: BLOOD URINE MANUAL; Value: POSITIVE; Range: NEGATIVE; Abnormal: Above high normal; Status: F Lab Order: MICROSCOPIC, URINE; SPEC'M 11/20/16 21:39 Test: WBC, URINE; Value: TNTC; Range: 0-3; Abnormal: Above high normal; Units: /hpf; Status: F Test: RBC, URINE; Value: 20-30; Range: 0-3; Abnormal: Above high normal; Units: /hpf; Status: F Test: SQUAMOUS EPITHELIAL CELL URINE; Value: NONE SEEN; Range: SMALL AMT; Units: /hpf; Status: F Test: BACTERIA, URINE; Value: MOD AMOUNT; Range: NONE; Abnormal: Above high normal; Status: F Test: HYALINE CAST, URINE; Value: NONE SEEN; Range: 0-1; Units: /lpf; Status: F Test: MICROSCOPIC EXAM; Value: PERFORMED; Status: F Lab Order: -Blood Culture; SPEC'M 11/20/16 22:49 Test: BLOOD CULTURE; Value: No growth after 24 hours . All specimens observed; Status: F Test: BLOOD CULTURE; Value: for 5 days. Results final at that time.; Status: F Test: BLOOD CULTURE; Value: No Growth after 48 hours. All Specimens observed; Status: F Test: BLOOD CULTURE; Value: for 7 days. Results final at that time.; Status: F Lab Order: Urine Culture; SPEC'M 11/20/16 21:39 Test: URINE CULTURE; Value: <EXTERNAL COMMENT eCWMed> FULL REPORT IN LAB NOTES (eCW and Medent).; Status: F Test: URINE CULTURE; Value: ORGANISM 1: YEAST LIKE ORGANISM; Status: F Test: URINE CULTURE; Value: YEAST LIKE ORGANISM; Status: F Test: URINE CULTURE; Value: COLONY COUNT CFU/ml 100,000; Status: F Lab Order: BLOOD CULTURES; SPEC'M 11/20/16 23:17 Test: BLOOD CULTURE; Value: No growth after 24 hours . All specimens observed; Status: F Test: BLOOD CULTURE; Value: for 5 days. Results final at that time.; Status: F Test: BLOOD CULTURE; Value: No Growth after 48 hours. All Specimens observed; Status: F Test: BLOOD CULTURE; Value: for 7 days. Results final at that time.; Status: F Outcome: 04:08 Discharge ordered by Provider. cs11 04:25 Discharge Assessment: Patient awake, alert and oriented x 3. No cognitive and/or ko2 functional deficits noted. Patient verbalized understanding of disposition instructions. patient administered narcotics - no. The following High Risk Discharge criteria are identified: None. Discharged to home ambulatory, with significant other. Condition: good. No special radiology studies were completed. Property sent home with patient. 04:26 Patient left the ED. ko2 12:51 [facility] pharmacist called stating that they did not carry cefpodoxime and the pt is [facility] unable to afford RX anyway, could it be changed. Dr Swanson reviewed the chart and changed the antibiotic to Keflex 500 mg QID x 10 days.:. Signatures: Lainey Mares RN RN kpj Peters, Mary, RN RN mcp Barnhardt, Gloria, Reg Reg gb Nicol Christianson, CASTING HOUSE LABORER CASTING HOUSE LABORER Caitlin Mcdaniel, LIVE IN HOUSEKEEPER NANNY LIVE IN HOUSEKEEPER NANNY mary ann Abelardo Kohler, DO cs11 Lamonte Roque gr2 Shira Calabrese,RN RN ko2 Ivana Elliottb Jaden, Jaquelin, LIVE IN HOUSEKEEPER NANNY LIVE IN HOUSEKEEPER NANNY cln Corrections: (The following items were deleted from the chart) 11/20 21:56 21:41 URINALYSIS+LAB sent. ko2 EDMS Chart Complete MTDD
--- NOTE | 2016-11-23 05:26 | EDDOCDS ---
Physician Documentation [facility] Name: Allison Weiss Age: 61 yrs Sex: Female : 1955 Arrival Date: 11/20/2016 Time: 20:50 Bed 17 Private MD: Khadijah Thomas Abdul Disposition: 11/21/16 04:08 Discharged to Home/Self Care. Impression: Urinary tract infection, site not specified - pyelonephritis, Vomiting, Urticaria. - Condition is Stable. - Discharge Instructions: Hives, Pyelonephritis, Adult, Nausea and Vomiting. - Prescriptions for cefpodoxime 200 mg Oral tablet - take 1 tablet by ORAL route every 12 hours for 14 days with food; 28 tablet. hydroxyzine HCl 25 mg Oral tablet - take 1 tablet by ORAL route 4 times per day as needed for hives/itching; 20 tablet. Medrol (Dylan) 4 mg Oral Tablets, Dose Pack - take 1 Pack by ORAL route as directed - follow package instructions; 1 packet. ZOFRAN ODT 4 mg - dissolve 1 tablet by ORAL route 4 times per day As needed do not chew, do not swallow whole; 10 tablet. - Medication Reconciliation, Local Pharmacy Hours form. - Follow up: Khadijah Thomas; When: Keep your scheduled appointment on Tuesday; Reason: Recheck today's complaints, Continuance of care. - Problem is an ongoing problem. - Symptoms have improved. - Notes: Keep hydrated Return to the ED for worsening symptoms, especially fever, dizziness, persistent vomiting, shortness of breath or worsening rash otherwise, keep your scheduled appointment, with your PCP on Tuesday Historical: - Allergies: no known allergies; - Home Meds: 1. Carafate 1 gram Oral tab three times a day 2. Cipro 500 mg Oral tab 1 tab every 12 hours 3. furosemide 40 mg Oral tab once daily 4. metformin 500 mg Oral tab 2 tabs 2 times per day 5. Oxygen 1.5 liters at night as needed 6. potassium chloride 20 mEq Oral TbER once daily 7. prednisone 5 mg Oral TbEC three times a day 8. hydrocodone-acetaminophen 5-325 mg Oral tab every 8 hours as needed 9. Xanax 1 mg Oral tab four times a day 10. lisinopril 10 mg Oral tab 1 tab once daily - PMHx: CHF; COPD; Diabetes - NIDDM: controlled; - PSHx: cyst removed leg; - Social history: Smoking status: Patient states former smoker of tobacco. No barriers to communication noted, The patient speaks fluent Citizen Of [place]. - Family history: Not pertinent. - : The pt / caregiver states he / she is not on anticoagulants. Home medication list is obtained from the patient. - Exposure Risk Screening:: None identified. Vital Signs: 11/20 20:53 BP 93 / 70; Pulse 115; Resp 18 S; Temp 98.7(O); Pulse Ox 97% on R/A; Weight 84.37 kg / gr2 186 lbs (R); Height 5 ft. 5 in. (165.10 cm) (R); Pain 2/10; 22:24 Pulse 96 MON; Pulse Ox 97% ; ko2 22:25 BP 86 / 49 (auto/); ko2 22:39 Pulse 94 MON; Pulse Ox 98% ; ko2 22:40 BP 88 / 54 (auto/); ko2 22:54 Pulse 94 MON; Pulse Ox 95% ; ko2 22:55 BP 90 / 54 (auto/); ko2 23:09 Pulse 94 MON; Pulse Ox 95% ; ko2 23:10 BP 97 / 50 (auto/); ko2 23:25 BP 75 / 36 (auto/); ko2 23:25 Pulse 90 MON; Pulse Ox 94% ; ko2 23:36 BP 109 / 53 (auto/); ko2 23:36 Pulse 92 MON; Pulse Ox 94% ; ko2 23:39 Pulse 92 MON; Pulse Ox 94% ; ko2 23:40 BP 104 / 55 (auto/); ko2 23:54 Pulse 90 MON; Pulse Ox 95% ; ko2 23:55 BP 104 / 55 (auto/); ko2 02/05 00:10 BP 100 / 50 (auto/); ko2 00:10 Pulse 90 MON; Pulse Ox 95% ; ko2 00:25 BP 103 / 52 (auto/); ko2 00:25 Pulse 88 MON; Pulse Ox 94% ; ko2 02:09 Pulse Ox 93% ; ko2 02:10 BP 93 / 54 (auto/); ko2 04:12 BP 111 / 61; Pulse 82; Resp 20; Temp 96.9(TE); Pulse Ox 95% on 2 lpm NC; Pain 0/10; mary ann 11/20 20:53 Body Mass Index 30.95 (84.37 kg, 165.10 cm) gr2 MDM: 11/20 21:19 NS 0.9% 1000 ml IV at bolus once ordered. le 21:19 NS 0.9% 1000 ml IV at 100 mL/hr continuous ordered. le 21:19 Ondansetron 4 mg IVP once ordered. le 21:19 IV Saline Lock ordered. le 21:19 Undress patient appropriately for examination ordered. le 21:19 Solu-MEDROL 125 mg IVP once ordered. le 21:19 hydrOXYzine 25 mg PO once ordered. le 21:19 Basic Metabolic Profile Ordered. EDMS 21:19 CBC with Diff Ordered. EDMS 21:19 Lipase Ordered. EDMS 21:19 Liver Profile Ordered. EDMS 21:20 NOTHING BY MOUTH+DIET ordered. EDMS 21:56 URINALYSIS MANUAL Ordered. EDMS 21:57 CBC with Diff Reviewed. le 22:00 MICROSCOPIC, URINE Ordered. EDMS 22:22 Basic Metabolic Profile Reviewed. le 22:22 Liver Profile Reviewed. le 22:22 URINALYSIS MANUAL Reviewed. le 22:22 MICROSCOPIC, URINE Reviewed. le 22:22 Lipase Reviewed. le 22:25 -Blood Culture (Adults Only), peripheral from different site, or from device/port/PICC le etc. if present ordered. 22:25 -Blood Culture Ordered. EDMS 22:26 Urine Culture Ordered. EDMS 22:28 Piperacillin-Tazobactam 3.375 grams IVPB once over 30 mins; dilute in 50mL of NS or D5W le ordered. 22:29 -Blood Culture (Adults Only), peripheral from different site, or from device/port/PICC ml3 etc. if present complete. 22:30 BLOOD CULTURES Ordered. EDMS 22:58 Financial registration complete. gjb 23:37 [facility] Payment Agreement was scanned into [employer] and attached to record. gjb 23:53 NS 0.9% 1000 ml IV at 250 mL/hr continuous; piggyback with abx ordered. le 11/21 12:01 T-Sheet-- Draft Copy was scanned into [employer] and attached to record. gb Administered Medications: 11/20 21:52 Drug: NS 0.9% 1000 ml [sodium chloride 0.9 % intravenous solution] Route: IV; Rate: ko2 bolus; Site: left antecubital; 23:34 Follow up: IV Status: Completed infusion; IV Intake: 1000ml ko2 21:52 Drug: Solu-MEDROL 125 mg [Solu-Medrol 500 mg intravenous solution (125 mg)] Route: IVP; ko2 Site: left antecubital; 21:57 Drug: Ondansetron 4 mg [ondansetron HCl 2 mg/mL intravenous solution (2 mL)] Route: ko2 IVP; Site: left antecubital; 21:57 Drug: hydrOXYzine 25 mg [hydroxyzine HCl 25 mg tablet (1 tabs)] Route: PO; ko2 23:34 Drug: NS 0.9% 1000 ml [sodium chloride 0.9 % intravenous solution] Route: IV; Rate: 100 ko2 mL/hr; Site: left antecubital; 11/21 00:06 Drug: NS 0.9% 1000 ml [sodium chloride 0.9 % intravenous solution] Route: IV; Rate: 250 ko2 mL/hr; Site: left antecubital; 03:43 Follow up: IV Status: Completed infusion; IV Intake: 1000ml ko2 00:07 Drug: Piperacillin-Tazobactam 3.375 grams [piperacillin-tazobactam 3.375 gram ko2 intravenous solution] Route: IVPB; Infused Over: 30 mins; Site: left antecubital; 00:49 Follow up: IV Status: Completed infusion; IV Intake: 50ml ko2 Signatures: Dispatcher [employer] Zoraida Guevara RN RN mcp Barnhardt, Gloria, Reg Reg Shirley Gomez, Academic Coach Unit ml3 Nicol Christianson, GAS AND OIL CHECKER GAS AND OIL CHECKER Abelardo Bosch DO DO cs11 Shira Calabrese RN RN ko2 Ivana Elliott The chart was reviewed and I authenticate all verbal orders and agree with the evaluation and treatment provided.Corrections: (The following items were deleted from the chart) 11/20 21:56 21:19 URINALYSIS+LAB ordered. [facility] EDTN Attachments: 23:37 [facility] Payment Agreement kevon 11/21 12:01 T-Sheet-- Draft Copy gb Chart Complete MTDD
--- NOTE | 2016-11-23 11:11 | EDDOCDS ---
Physician Documentation [facility] Name: Allison Weiss Age: 61 yrs Sex: Female : 1955 Arrival Date: 11/20/2016 Time: 20:50 Bed 17 Private MD: Khadijah Thomas Abdul Disposition: 11/21/16 04:08 Discharged to Home/Self Care. Impression: Urinary tract infection, site not specified - pyelonephritis, Vomiting, Urticaria. - Condition is Stable. - Discharge Instructions: Hives, Pyelonephritis, Adult, Nausea and Vomiting. - Prescriptions for cefpodoxime 200 mg Oral tablet - take 1 tablet by ORAL route every 12 hours for 14 days with food; 28 tablet. hydroxyzine HCl 25 mg Oral tablet - take 1 tablet by ORAL route 4 times per day as needed for hives/itching; 20 tablet. Medrol (Dylan) 4 mg Oral Tablets, Dose Pack - take 1 Pack by ORAL route as directed - follow package instructions; 1 packet. ZOFRAN ODT 4 mg - dissolve 1 tablet by ORAL route 4 times per day As needed do not chew, do not swallow whole; 10 tablet. - Medication Reconciliation, Local Pharmacy Hours form. - Follow up: Khadijah Thomas; When: Keep your scheduled appointment on Tuesday; Reason: Recheck today's complaints, Continuance of care. - Problem is an ongoing problem. - Symptoms have improved. - Notes: Keep hydrated Return to the ED for worsening symptoms, especially fever, dizziness, persistent vomiting, shortness of breath or worsening rash otherwise, keep your scheduled appointment, with your PCP on Tuesday Historical: - Allergies: no known allergies; - Home Meds: 1. Carafate 1 gram Oral tab three times a day 2. Cipro 500 mg Oral tab 1 tab every 12 hours 3. furosemide 40 mg Oral tab once daily 4. metformin 500 mg Oral tab 2 tabs 2 times per day 5. Oxygen 1.5 liters at night as needed 6. potassium chloride 20 mEq Oral TbER once daily 7. prednisone 5 mg Oral TbEC three times a day 8. hydrocodone-acetaminophen 5-325 mg Oral tab every 8 hours as needed 9. Xanax 1 mg Oral tab four times a day 10. lisinopril 10 mg Oral tab 1 tab once daily - PMHx: CHF; COPD; Diabetes - NIDDM: controlled; - PSHx: cyst removed leg; - Social history: Smoking status: Patient states former smoker of tobacco. No barriers to communication noted, The patient speaks fluent [place]. - Family history: Not pertinent. - : The pt / caregiver states he / she is not on anticoagulants. Home medication list is obtained from the patient. - Exposure Risk Screening:: None identified. Vital Signs: 11/20 20:53 BP 93 / 70; Pulse 115; Resp 18 S; Temp 98.7(O); Pulse Ox 97% on R/A; Weight 84.37 kg / gr2 186 lbs (R); Height 5 ft. 5 in. (165.10 cm) (R); Pain 2/10; 22:24 Pulse 96 MON; Pulse Ox 97% ; ko2 22:25 BP 86 / 49 (auto/); ko2 22:39 Pulse 94 MON; Pulse Ox 98% ; ko2 22:40 BP 88 / 54 (auto/); ko2 22:54 Pulse 94 MON; Pulse Ox 95% ; ko2 22:55 BP 90 / 54 (auto/); ko2 23:09 Pulse 94 MON; Pulse Ox 95% ; ko2 23:10 BP 97 / 50 (auto/); ko2 23:25 BP 75 / 36 (auto/); ko2 23:25 Pulse 90 MON; Pulse Ox 94% ; ko2 23:36 BP 109 / 53 (auto/); ko2 23:36 Pulse 92 MON; Pulse Ox 94% ; ko2 23:39 Pulse 92 MON; Pulse Ox 94% ; ko2 23:40 BP 104 / 55 (auto/); ko2 23:54 Pulse 90 MON; Pulse Ox 95% ; ko2 23:55 BP 104 / 55 (auto/); ko2 02/05 00:10 BP 100 / 50 (auto/); ko2 00:10 Pulse 90 MON; Pulse Ox 95% ; ko2 00:25 BP 103 / 52 (auto/); ko2 00:25 Pulse 88 MON; Pulse Ox 94% ; ko2 02:09 Pulse Ox 93% ; ko2 02:10 BP 93 / 54 (auto/); ko2 04:12 BP 111 / 61; Pulse 82; Resp 20; Temp 96.9(TE); Pulse Ox 95% on 2 lpm NC; Pain 0/10; mary ann 11/20 20:53 Body Mass Index 30.95 (84.37 kg, 165.10 cm) gr2 MDM: 11/20 21:19 NS 0.9% 1000 ml IV at bolus once ordered. le 21:19 NS 0.9% 1000 ml IV at 100 mL/hr continuous ordered. le 21:19 Ondansetron 4 mg IVP once ordered. le 21:19 IV Saline Lock ordered. le 21:19 Undress patient appropriately for examination ordered. le 21:19 Solu-MEDROL 125 mg IVP once ordered. le 21:19 hydrOXYzine 25 mg PO once ordered. le 21:19 Basic Metabolic Profile Ordered. EDMS 21:19 CBC with Diff Ordered. EDMS 21:19 Lipase Ordered. EDMS 21:19 Liver Profile Ordered. EDMS 21:20 NOTHING BY MOUTH+DIET ordered. EDMS 21:56 URINALYSIS MANUAL Ordered. EDMS 21:57 CBC with Diff Reviewed. le 22:00 MICROSCOPIC, URINE Ordered. EDMS 22:22 Basic Metabolic Profile Reviewed. le 22:22 Liver Profile Reviewed. le 22:22 URINALYSIS MANUAL Reviewed. le 22:22 MICROSCOPIC, URINE Reviewed. le 22:22 Lipase Reviewed. le 22:25 -Blood Culture (Adults Only), peripheral from different site, or from device/port/PICC le etc. if present ordered. 22:25 -Blood Culture Ordered. EDMS 22:26 Urine Culture Ordered. EDMS 22:28 Piperacillin-Tazobactam 3.375 grams IVPB once over 30 mins; dilute in 50mL of NS or D5W le ordered. 22:29 -Blood Culture (Adults Only), peripheral from different site, or from device/port/PICC ml3 etc. if present complete. 22:30 BLOOD CULTURES Ordered. EDMS 22:58 Financial registration complete. gjb 23:37 [facility] Payment Agreement was scanned into [employer] and attached to record. gjb 23:53 NS 0.9% 1000 ml IV at 250 mL/hr continuous; piggyback with abx ordered. le 11/21 12:01 T-Sheet-- Draft Copy was scanned into [employer] and attached to record. gb Administered Medications: 11/20 21:52 Drug: NS 0.9% 1000 ml [sodium chloride 0.9 % intravenous solution] Route: IV; Rate: ko2 bolus; Site: left antecubital; 23:34 Follow up: IV Status: Completed infusion; IV Intake: 1000ml ko2 21:52 Drug: Solu-MEDROL 125 mg [Solu-Medrol 500 mg intravenous solution (125 mg)] Route: IVP; ko2 Site: left antecubital; 21:57 Drug: Ondansetron 4 mg [ondansetron HCl 2 mg/mL intravenous solution (2 mL)] Route: ko2 IVP; Site: left antecubital; 21:57 Drug: hydrOXYzine 25 mg [hydroxyzine HCl 25 mg tablet (1 tabs)] Route: PO; ko2 23:34 Drug: NS 0.9% 1000 ml [sodium chloride 0.9 % intravenous solution] Route: IV; Rate: 100 ko2 mL/hr; Site: left antecubital; 11/21 00:06 Drug: NS 0.9% 1000 ml [sodium chloride 0.9 % intravenous solution] Route: IV; Rate: 250 ko2 mL/hr; Site: left antecubital; 03:43 Follow up: IV Status: Completed infusion; IV Intake: 1000ml ko2 00:07 Drug: Piperacillin-Tazobactam 3.375 grams [piperacillin-tazobactam 3.375 gram ko2 intravenous solution] Route: IVPB; Infused Over: 30 mins; Site: left antecubital; 00:49 Follow up: IV Status: Completed infusion; IV Intake: 50ml ko2 Signatures: Dispatcher [employer] Zoraida Guevara RN RN mcp Barnhardt, Gloria, Reg Reg Shirley Gomez, Bilingual Call Center Representative Unit ml3 Nicol Christianson, COMMUNICATIONS ADMINISTRATOR COMMUNICATIONS ADMINISTRATOR Abelardo Bosch DO DO cs11 Shira Calabrese RN RN ko2 Ivana Elliott The chart was reviewed and I authenticate all verbal orders and agree with the evaluation and treatment provided.Corrections: (The following items were deleted from the chart) 11/20 21:56 21:19 URINALYSIS+LAB ordered. [facility] EDPA Attachments: 23:37 [facility] Payment Agreement kevon 11/21 12:01 T-Sheet-- Draft Copy gb MTDD
--- NOTE | 2016-11-23 11:11 | EDDOCDS ---
Physician Documentation [facility] Name: Allison Weiss Age: 61 yrs Sex: Female : 1955 Arrival Date: 11/20/2016 Time: 20:50 Bed 17 Private MD: Khadijah Thomas Abdul Disposition: 11/21/16 04:08 Discharged to Home/Self Care. Impression: Urinary tract infection, site not specified - pyelonephritis, Vomiting, Urticaria. - Condition is Stable. - Discharge Instructions: Hives, Pyelonephritis, Adult, Nausea and Vomiting. - Prescriptions for cefpodoxime 200 mg Oral tablet - take 1 tablet by ORAL route every 12 hours for 14 days with food; 28 tablet. hydroxyzine HCl 25 mg Oral tablet - take 1 tablet by ORAL route 4 times per day as needed for hives/itching; 20 tablet. Medrol (Dylan) 4 mg Oral Tablets, Dose Pack - take 1 Pack by ORAL route as directed - follow package instructions; 1 packet. ZOFRAN ODT 4 mg - dissolve 1 tablet by ORAL route 4 times per day As needed do not chew, do not swallow whole; 10 tablet. - Medication Reconciliation, Local Pharmacy Hours form. - Follow up: Khadijah Thomas; When: Keep your scheduled appointment on Tuesday; Reason: Recheck today's complaints, Continuance of care. - Problem is an ongoing problem. - Symptoms have improved. - Notes: Keep hydrated Return to the ED for worsening symptoms, especially fever, dizziness, persistent vomiting, shortness of breath or worsening rash otherwise, keep your scheduled appointment, with your PCP on Tuesday Historical: - Allergies: no known allergies; - Home Meds: 1. Carafate 1 gram Oral tab three times a day 2. Cipro 500 mg Oral tab 1 tab every 12 hours 3. furosemide 40 mg Oral tab once daily 4. metformin 500 mg Oral tab 2 tabs 2 times per day 5. Oxygen 1.5 liters at night as needed 6. potassium chloride 20 mEq Oral TbER once daily 7. prednisone 5 mg Oral TbEC three times a day 8. hydrocodone-acetaminophen 5-325 mg Oral tab every 8 hours as needed 9. Xanax 1 mg Oral tab four times a day 10. lisinopril 10 mg Oral tab 1 tab once daily - PMHx: CHF; COPD; Diabetes - NIDDM: controlled; - PSHx: cyst removed leg; - Social history: Smoking status: Patient states former smoker of tobacco. No barriers to communication noted, The patient speaks fluent Japanese. - Family history: Not pertinent. - : The pt / caregiver states he / she is not on anticoagulants. Home medication list is obtained from the patient. - Exposure Risk Screening:: None identified. Vital Signs: 11/20 20:53 BP 93 / 70; Pulse 115; Resp 18 S; Temp 98.7(O); Pulse Ox 97% on R/A; Weight 84.37 kg / gr2 186 lbs (R); Height 5 ft. 5 in. (165.10 cm) (R); Pain 2/10; 22:24 Pulse 96 MON; Pulse Ox 97% ; ko2 22:25 BP 86 / 49 (auto/); ko2 22:39 Pulse 94 MON; Pulse Ox 98% ; ko2 22:40 BP 88 / 54 (auto/); ko2 22:54 Pulse 94 MON; Pulse Ox 95% ; ko2 22:55 BP 90 / 54 (auto/); ko2 23:09 Pulse 94 MON; Pulse Ox 95% ; ko2 23:10 BP 97 / 50 (auto/); ko2 23:25 BP 75 / 36 (auto/); ko2 23:25 Pulse 90 MON; Pulse Ox 94% ; ko2 23:36 BP 109 / 53 (auto/); ko2 23:36 Pulse 92 MON; Pulse Ox 94% ; ko2 23:39 Pulse 92 MON; Pulse Ox 94% ; ko2 23:40 BP 104 / 55 (auto/); ko2 23:54 Pulse 90 MON; Pulse Ox 95% ; ko2 23:55 BP 104 / 55 (auto/); ko2 02/05 00:10 BP 100 / 50 (auto/); ko2 00:10 Pulse 90 MON; Pulse Ox 95% ; ko2 00:25 BP 103 / 52 (auto/); ko2 00:25 Pulse 88 MON; Pulse Ox 94% ; ko2 02:09 Pulse Ox 93% ; ko2 02:10 BP 93 / 54 (auto/); ko2 04:12 BP 111 / 61; Pulse 82; Resp 20; Temp 96.9(TE); Pulse Ox 95% on 2 lpm NC; Pain 0/10; mary ann 11/20 20:53 Body Mass Index 30.95 (84.37 kg, 165.10 cm) gr2 MDM: 11/20 21:19 NS 0.9% 1000 ml IV at bolus once ordered. le 21:19 NS 0.9% 1000 ml IV at 100 mL/hr continuous ordered. le 21:19 Ondansetron 4 mg IVP once ordered. le 21:19 IV Saline Lock ordered. le 21:19 Undress patient appropriately for examination ordered. le 21:19 Solu-MEDROL 125 mg IVP once ordered. le 21:19 hydrOXYzine 25 mg PO once ordered. le 21:19 Basic Metabolic Profile Ordered. EDMS 21:19 CBC with Diff Ordered. EDMS 21:19 Lipase Ordered. EDMS 21:19 Liver Profile Ordered. EDMS 21:20 NOTHING BY MOUTH+DIET ordered. EDMS 21:56 URINALYSIS MANUAL Ordered. EDMS 21:57 CBC with Diff Reviewed. le 22:00 MICROSCOPIC, URINE Ordered. EDMS 22:22 Basic Metabolic Profile Reviewed. le 22:22 Liver Profile Reviewed. le 22:22 URINALYSIS MANUAL Reviewed. le 22:22 MICROSCOPIC, URINE Reviewed. le 22:22 Lipase Reviewed. le 22:25 -Blood Culture (Adults Only), peripheral from different site, or from device/port/PICC le etc. if present ordered. 22:25 -Blood Culture Ordered. EDMS 22:26 Urine Culture Ordered. EDMS 22:28 Piperacillin-Tazobactam 3.375 grams IVPB once over 30 mins; dilute in 50mL of NS or D5W le ordered. 22:29 -Blood Culture (Adults Only), peripheral from different site, or from device/port/PICC ml3 etc. if present complete. 22:30 BLOOD CULTURES Ordered. EDMS 22:58 Financial registration complete. gjb 23:37 [facility] Payment Agreement was scanned into [employer] and attached to record. gjb 23:53 NS 0.9% 1000 ml IV at 250 mL/hr continuous; piggyback with abx ordered. le 11/21 12:01 T-Sheet-- Draft Copy was scanned into [employer], [employer] and attached to record. gb Administered Medications: 11/20 21:52 Drug: NS 0.9% 1000 ml [sodium chloride 0.9 % intravenous solution] Route: IV; Rate: ko2 bolus; Site: left antecubital; 23:34 Follow up: IV Status: Completed infusion; IV Intake: 1000ml ko2 21:52 Drug: Solu-MEDROL 125 mg [Solu-Medrol 500 mg intravenous solution (125 mg)] Route: IVP; ko2 Site: left antecubital; 21:57 Drug: Ondansetron 4 mg [ondansetron HCl 2 mg/mL intravenous solution (2 mL)] Route: ko2 IVP; Site: left antecubital; 21:57 Drug: hydrOXYzine 25 mg [hydroxyzine HCl 25 mg tablet (1 tabs)] Route: PO; ko2 23:34 Drug: NS 0.9% 1000 ml [sodium chloride 0.9 % intravenous solution] Route: IV; Rate: 100 ko2 mL/hr; Site: left antecubital; 11/21 00:06 Drug: NS 0.9% 1000 ml [sodium chloride 0.9 % intravenous solution] Route: IV; Rate: 250 ko2 mL/hr; Site: left antecubital; 03:43 Follow up: IV Status: Completed infusion; IV Intake: 1000ml ko2 00:07 Drug: Piperacillin-Tazobactam 3.375 grams [piperacillin-tazobactam 3.375 gram ko2 intravenous solution] Route: IVPB; Infused Over: 30 mins; Site: left antecubital; 00:49 Follow up: IV Status: Completed infusion; IV Intake: 50ml ko2 Signatures: Dispatcher [employer] Zoraida Guevara RN RN mcp Barnhardt, Gloria, Reg Reg Shirley Gomez, Burr Mill Operator Unit ml3 Nicol Christianson, FAMILY LITERACY COORDINATOR FAMILY LITERACY COORDINATOR Abelardo Bosch DO DO cs11 Shira Calabrese RN RN ko2 Ivana Elliott The chart was reviewed and I authenticate all verbal orders and agree with the evaluation and treatment provided.Corrections: (The following items were deleted from the chart) 11/20 21:56 21:19 URINALYSIS+LAB ordered. [facility] EDVT Attachments: 23:37 [facility] Payment Agreement kevon 11/21 12:01 T-Sheet-- Draft Copy gb MTDD
--- NOTE | 2016-11-23 11:11 | EDDOCDS ---
Nurse's Notes [facility] Name: Allison Weiss Age: 61 yrs Sex: Female : 1955 Arrival Date: 11/20/2016 Time: 20:50 Bed 17 Private MD: Khadijah Thomas Abdul Diagnosis: Urinary tract infection, site not specified-pyelonephritis;Vomiting;Urticaria Presentation: 11/20 20:58 Presenting complaint: Patient states: Stomach ache, vomiting, chills, rash on abdomen mcp and back. Adult Sepsis Screening: The patient does not have new or worsening altered mentation. Patient's respiratory rate is less than 22. Systolic blood pressure is less than or equal to 100 (1 point). Patient has a qSOFA score of 1- Negative Sepsis Screen. Suicide/Homicide risk assessment- the patient denies having any suicidal and/or homicidal ideations and does not present with any other emotional, behavioral or mental health complaints. 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 Transition of care: patient was not received from another setting of care. 20:58 Acuity: MARTHA Level 3 [facility] 20:58 Method Of Arrival: Wheelchair [facility] Triage Assessment: 21:02 General: Appears uncomfortable, Behavior is cooperative. Pain: Location: abdomen Pain mcp currently is 10 out of 10 on a pain scale. HIV screening NA for this visit Offered previously. Neurological: No deficits noted. Respiratory: Airway is patent Respiratory effort is even, unlabored. GI: Reports lower abdominal pain. Derm: Skin is pink, warm & dry. Historical: - Allergies: no known allergies; - Home Meds: 1. Carafate 1 gram Oral tab three times a day 2. Cipro 500 mg Oral tab 1 tab every 12 hours 3. furosemide 40 mg Oral tab once daily 4. metformin 500 mg Oral tab 2 tabs 2 times per day 5. Oxygen 1.5 liters at night as needed 6. potassium chloride 20 mEq Oral TbER once daily 7. prednisone 5 mg Oral TbEC three times a day 8. hydrocodone-acetaminophen 5-325 mg Oral tab every 8 hours as needed 9. Xanax 1 mg Oral tab four times a day 10. lisinopril 10 mg Oral tab 1 tab once daily - PMHx: CHF; COPD; Diabetes - NIDDM: controlled; - PSHx: cyst removed leg; - Social history: Smoking status: Patient states former smoker of tobacco. No barriers to communication noted, The patient speaks fluent Albanian. - Family history: Not pertinent. - : The pt / caregiver states he / she is not on anticoagulants. Home medication list is obtained from the patient. - Exposure Risk Screening:: None identified. Screenin:54 Infection Control. gr2 11/21 02:57 Screening information is obtained from the patient. Fall risk: No risks identified. ko2 Assistance ADL's: requires no assistance with activities of daily living. Abuse/DV Screen: The patient / caregiver reports he/she is: not in a situation that causes fear, pain or injury. Nutritional screening: No deficits noted. Advance Directives: Currently, there is no health care proxy. There is no active DNR order. There is no living will. There is no Power of Audit Tech. home support is adequate. Assessment: 11/20 21:41 General: Appears in no apparent distress, Behavior is appropriate for age, cooperative. ko2 Pain: Location: abdomen. Neurological: Level of Consciousness is awake, alert. Respiratory: Airway is patent Respiratory effort is even, unlabored. GI: Bowel sounds present X 4 quads. Abd is soft X 4 quads. Derm: Rash noted that is itchy. Musculoskeletal: Range of motion intact in all extremities. 23:00 General: Appears in no apparent distress, Behavior is appropriate for age, cooperative. ko2 23:00 Pain: Location: abdomen. Neurological: Level of Consciousness is awake, alert. ko2 Respiratory: Airway is patent Respiratory effort is even, unlabored. GI: Abdomen is non- distended obese. Derm:. Musculoskeletal: Range of motion intact in all extremities. 11/21 00:07 General: Appears in no apparent distress, comfortable, pt currently appears to be ko2 asleep on the stretcher. Respirations unlabored at this time. Skin warm and dry. No concerns at this time. . 01:12 General: Appears in no apparent distress, comfortable, Behavior is appropriate for age, ko2 cooperative. Pain: Location: abdomen. Neurological: Level of Consciousness is awake, alert. Respiratory: Airway is patent Respiratory effort is even, unlabored. Derm: Skin is normal. 02:00 General: Appears in no apparent distress, comfortable, Behavior is appropriate for age, ko2 cooperative, Smells of. Neurological: Level of Consciousness is awake, alert. Respiratory: Airway is patent Respiratory effort is even, unlabored. Derm: Skin is normal. 03:04 General: Appears in no apparent distress, comfortable, Behavior is appropriate for age, ko2 cooperative. Neurological: Level of Consciousness is awake, alert. Respiratory: Airway is patent Respiratory effort is even, unlabored. Derm: Skin is normal. 04:25 General: Appears in no apparent distress, comfortable, Behavior is appropriate for age, ko2 cooperative. Neurological: Level of Consciousness is awake, alert. Respiratory: Airway is patent Respiratory effort is even, unlabored. Derm: Skin is normal. Vital Signs: 11/20 20:53 BP 93 / 70; Pulse 115; Resp 18 S; Temp 98.7(O); Pulse Ox 97% on R/A; Weight 84.37 kg gr2 (R); Height 5 ft. 5 in. (165.10 cm) (R); Pain 2/10; 22:24 Pulse 96 MON; Pulse Ox 97% ; ko2 22:25 BP 86 / 49 (auto/); ko2 22:39 Pulse 94 MON; Pulse Ox 98% ; ko2 22:40 BP 88 / 54 (auto/); ko2 22:54 Pulse 94 MON; Pulse Ox 95% ; ko2 22:55 BP 90 / 54 (auto/); ko2 23:09 Pulse 94 MON; Pulse Ox 95% ; ko2 23:10 BP 97 / 50 (auto/); ko2 23:25 BP 75 / 36 (auto/); ko2 23:25 Pulse 90 MON; Pulse Ox 94% ; ko2 23:36 BP 109 / 53 (auto/); ko2 23:36 Pulse 92 MON; Pulse Ox 94% ; ko2 23:39 Pulse 92 MON; Pulse Ox 94% ; ko2 23:40 BP 104 / 55 (auto/); ko2 23:54 Pulse 90 MON; Pulse Ox 95% ; ko2 23:55 BP 104 / 55 (auto/); ko2 11/21 00:10 BP 100 / 50 (auto/); ko2 00:10 Pulse 90 MON; Pulse Ox 95% ; ko2 00:25 BP 103 / 52 (auto/); ko2 00:25 Pulse 88 MON; Pulse Ox 94% ; ko2 02:09 Pulse Ox 93% ; ko2 02:10 BP 93 / 54 (auto/); ko2 04:12 BP 111 / 61; Pulse 82; Resp 20; Temp 96.9(TE); Pulse Ox 95% on 2 lpm NC; Pain 0/10; mary ann 11/20 20:53 Body Mass Index 30.95 (84.37 kg, 165.10 cm) gr2 Vitals: 11/20 20:53 Log In Time: November 20, 2016 at 20:53. gr2 ED Course: 20:52 Patient visited by Lamonte Roque. gr2 20:52 Patient moved to Waiting gr2 20:53 Khadijah Thomas is Private Physician. gr2 20:55 Patient visited by Lamonte Roque. gr2 20:55 Patient moved to Pre RCE gr2 20:59 Triage Initiated mcp 21:02 Patient visited by Zoraida Pedro RN. mcp 21:05 Shira Calabrese RN is Primary Nurse. mcp 21:05 Nicol Christianson FNP is PHCP. le 21:05 Patient moved to 17 mcp 21:09 Patient visited by Nicol Christianson FNP. le 21:09 Patient visited by Nicol Christianson FNP. le 21:12 Patient visited by Caitlin Gilliam PCA. mary ann 21:12 Pt greeted and oriented to ED. Patient advised of names of staff involved in care, mary ann location of call jensen, wait times and NPO status. Accompanied by Significant Other, Patient has correct armband on for positive identification. Placed in gown. Call light in reach. Side rails up X2. monitoring tech on. Pulse ox on. NIBP on. 21:41 Basic Metabolic Profile Sent. ko2 21:41 CBC with Diff Sent. ko2 21:41 Lipase Sent. ko2 21:41 Liver Profile Sent. ko2 21:42 Inserted saline lock: 20 gauge in left antecubital area and blood collected. ko2 21:57 URINALYSIS MANUAL Sent. ko2 21:58 Patient visited by Shira Calabrese RN. ko2 22:50 Patient visited by Shira Calabrese,NICHELLE. ko2 23:19 BLOOD CULTURES Sent. cln 23:37 [facility] – [place] Payment Agreement was scanned into [employer] and attached to record. gjb 23:47 Patient visited by Shira Calabrese RN. ko2 02 00:49 Patient visited by Caitlin Gilliam PCA. mary ann 01:13 Patient visited by Shira Calabrese RN. ko2 02:09 Patient visited by Shira Calabrese RN. ko2 02:57 The patient / caregiver is instructed regarding the plan of care and ED course. ko2 03:04 Patient visited by Shira Calabrese RN. ko2 03:43 Patient visited by Shira Calabrese RN. ko2 04:08 Khadijah Thomas is Referral Physician. cs11 04:08 Abelardo Kohler DO is Attending Physician. cs11 04:13 Patient visited by Caitlin Gilliam PCA. mary ann 04:25 Discontinued lock intact, bleeding controlled, pressure dressing applied, No ko2 redness/swelling at site. No procedures done that require assistance. 12:01 T-Sheet-- Draft Copy was scanned into [employer] and attached to record. gb Administered Medications: 11/20 21:52 Drug: NS 0.9% 1000 ml [sodium chloride 0.9 % intravenous solution] Route: IV; Rate: ko2 bolus; Site: left antecubital; 23:34 Follow up: IV Status: Completed infusion; IV Intake: 1000ml ko2 21:52 Drug: Solu-MEDROL 125 mg [Solu-Medrol 500 mg intravenous solution (125 mg)] Route: IVP; ko2 Site: left antecubital; 21:57 Drug: Ondansetron 4 mg [ondansetron HCl 2 mg/mL intravenous solution (2 mL)] Route: ko2 IVP; Site: left antecubital; 21:57 Drug: hydrOXYzine 25 mg [hydroxyzine HCl 25 mg tablet (1 tabs)] Route: PO; ko2 23:34 Drug: NS 0.9% 1000 ml [sodium chloride 0.9 % intravenous solution] Route: IV; Rate: 100 ko2 mL/hr; Site: left antecubital; 11/21 00:06 Drug: NS 0.9% 1000 ml [sodium chloride 0.9 % intravenous solution] Route: IV; Rate: 250 ko2 mL/hr; Site: left antecubital; 03:43 Follow up: IV Status: Completed infusion; IV Intake: 1000ml ko2 00:07 Drug: Piperacillin-Tazobactam 3.375 grams [piperacillin-tazobactam 3.375 gram ko2 intravenous solution] Route: IVPB; Infused Over: 30 mins; Site: left antecubital; 00:49 Follow up: IV Status: Completed infusion; IV Intake: 50ml ko2 Intake: 11/20 23:34 IV: 1000.00ml; Total: 1000.00ml. ko2 11/21 00:49 IV: 50.00ml; Total: 1050.00ml. ko2 03:43 IV: 1000.00ml; Total: 2050.00ml. ko2 Order Results: Lab Order: Basic Metabolic Profile; SPEC'M 11/20/16 21:39 Test: GLUCOSE, FASTING; Value: 101; Range: 80-110; Units: MG/DL; Status: F Test: BLOOD UREA NITROGEN; Value: 25; Range: 7-18; Abnormal: Above high normal; Units: MG/DL; Status: F Test: CREATININE FOR GFR; Value: 1.21; Range: 0.55-1.02; Abnormal: Above high normal; Units: MG/DL; Status: F Test: GLOMERULAR FILTRATION RATE; Value: 48.2; Range: >45; Status: F Test: SODIUM LEVEL; Value: 143; Range: 136-145; Units: MEQ/L; Status: F Test: POTASSIUM SERUM; Value: 5.6; Range: 3.5-5.1; Abnormal: Above high normal; Units: MEQ/L; Status: F Test: CHLORIDE LEVEL; Value: 108; Range: 98-107; Abnormal: Above high normal; Units: MEQ/L; Status: F Test: CARBON DIOXIDE LEVEL; Value: 29; Range: 21-32; Units: MEQ/L; Status: F Test: ANION GAP; Value: 6; Range: 8-16; Abnormal: Below low normal; Units: MEQ/L; Status: F Test: CALCIUM LEVEL; Value: 8.4; Range: 8.8-10.2; Abnormal: Below low normal; Units: MG/DL; Status: F Test Note: ; Units are mL/min/1.73 m2 Chronic Kidney Disease Staging per NKF: Stage I & II GFR >=60 Normal to Mildly Decreased Stage III GFR 30-59 Moderately Decreased Stage IV GFR 15-29 Severely Decreased Stage V GFR <15 Very Little GFR Left ESRD GFR <15 on SURGICAL GARMENT INSPECTOR Lab Order: CBC with Diff; ALAN'David 11/20/16 21:39 Test: WHITE BLOOD COUNT; Value: 11.3; Range: 4.0-10.0; Abnormal: Above high normal; Units: K/mm3; Status: F Test: RED BLOOD COUNT; Value: 3.40; Range: 4.00-5.40; Abnormal: Below low normal; Units: M/mm3; Status: F Test: HEMOGLOBIN; Value: 10.5; Range: 12.0-16.0; Abnormal: Below low normal; Units: g/dl; Status: F Test: HEMATOCRIT; Value: 32.9; Range: 36.0-47.0; Abnormal: Below low normal; Units: %; Status: F Test: MEAN CORPUSCULAR VOLUME; Value: 96.7; Range: 80.0-96.0; Abnormal: Above high normal; Units: fl; Status: F Test: MEAN CORPUSCULAR HEMOGLOBIN; Value: 30.8; Range: 27.0-33.0; Units: pg; Status: F Test: MEAN CORPUSCULAR HGB CONC; Value: 31.9; Range: 32.0-36.5; Abnormal: Below low normal; Units: g/dl; Status: F Test: RED CELL DISTRIBUTION WIDTH; Value: 13.7; Range: 11.5-14.5; Units: %; Status: F Test: PLATELET COUNT, AUTOMATED; Value: 378; Range: 150-450; Units: k/mm3; Status: F Test: NEUTROPHILS %; Value: 72.3; Range: 36.0-66.0; Abnormal: Above high normal; Units: %; Status: F Test: LYMPH %; Value: 14.9; Range: 24.0-44.0; Abnormal: Below low normal; Units: %; Status: F Test: MONO %; Value: 8.4; Range: 0.0-5.0; Abnormal: Above high normal; Units: %; Status: F Test: EOS %; Value: 2.2; Range: 0.0-3.0; Units: %; Status: F Test: BASO %; Value: 0.6; Range: 0.0-1.0; Units: %; Status: F Test: LARGE UNSTAINED CELL %; Value: 1.6; Range: 0.0-4.0; Units: %; Status: F Test: NEUTROPHILS #; Value: 8.2; Range: 1.8-7.7; Abnormal: Above high normal; Units: K/mm3; Status: F Test: LYMPH #; Value: 1.9; Range: 1.5-4.5; Units: K/mm3; Status: F Test: MONO #; Value: 1.0; Range: 0.0-0.8; Abnormal: Above high normal; Units: K/mm3; Status: F Test: EOS #; Value: 0.2; Range: 0.0-0.50; Units: K/mm3; Status: F Test: BASO #; Value: 0.1; Range: 0.0-0.2; Units: K/mm3; Status: F Test: LARGE UNSTAINED CELL #; Value: 0.2; Range: 0.0-0.4; Units: K/mm3; Status: F Lab Order: Lipase; SPEC' 11/20/16 21:39 Test: LIPASE; Value: 105; Range: 73-393; Units: U/L; Status: F Lab Order: Liver Profile; SPEC' 11/20/16 21:39 Test: AST/SGOT; Value: 10; Range: 15-37; Abnormal: Below low normal; Units: U/L; Status: F Test: ALT/SGPT; Value: 18; Range: 12-78; Units: U/L; Status: F Test: ALKALINE PHOSPHATASE; Value: 89; Range: 45-117; Units: U/L; Status: F Test: BILIRUBIN,TOTAL; Value: 0.2; Range: 0.2-1.0; Units: MG/DL; Status: F Test: BILIRUBIN,DIRECT; Value: < 0.1; Range: 0.0-0.2; Units: MG/DL; Status: F Test: TOTAL PROTEIN; Value: 5.9; Range: 6.4-8.2; Abnormal: Below low normal; Units: GM/DL; Status: F Test: ALBUMIN; Value: 2.8; Range: 3.2-5.2; Abnormal: Below low normal; Units: GM/DL; Status: F Test: ALBUMIN/GLOBULIN RATIO; Value: 0.90; Range: 1.00-1.93; Abnormal: Below low normal; Status: F Lab Order: URINALYSIS MANUAL; SPEC'M 11/20/16 21:39 Test: APPEARANCE, URINE MANUAL; Value: CLOUDY; Range: CLEAR; Abnormal: Above high normal; Status: F Test: COLOR, URINE MANUAL; Value: YELLOW; Range: YELLOW; Status: F Test: PH,URINE MAN; Value: 5.0; Range: 5.0 - 9.0; Units: UNITS; Status: F Test: SPECIFIC GRAVITY,URINE MANUAL; Value: 1.020; Range: 1.002-1.035; Status: F Test: PROTEIN, URINE MANUAL; Value: NEGATIVE; Range: NEGATIVE; Units: mg/dL; Status: F Test: GLUCOSE, URINE (UA) MANUAL; Value: NEGATIVE; Range: NEGATIVE; Units: mg/dL; Status: F Test: KETONE, URINE MANUAL; Value: NEGATIVE; Range: NEGATIVE; Units: mg/dL; Status: F Test: UROBILINOGEN, URINE MANUAL; Value: NORMAL; Range: NORMAL; Units: mg/dl; Status: F Test: BILIRUBIN, URINE MANUAL; Value: NEGATIVE; Range: NEGATIVE; Status: F Test: NITRITE, URINE MANUAL; Value: NEGATIVE; Range: NEGATIVE; Status: F Test: LEUKOCYTE ESTERASE, URINE MAN; Value: POSITIVE; Range: NEGATIVE; Abnormal: Above high normal; Status: F Test: BLOOD URINE MANUAL; Value: POSITIVE; Range: NEGATIVE; Abnormal: Above high normal; Status: F Lab Order: MICROSCOPIC, URINE; SPEC'M 11/20/16 21:39 Test: WBC, URINE; Value: TNTC; Range: 0-3; Abnormal: Above high normal; Units: /hpf; Status: F Test: RBC, URINE; Value: 20-30; Range: 0-3; Abnormal: Above high normal; Units: /hpf; Status: F Test: SQUAMOUS EPITHELIAL CELL URINE; Value: NONE SEEN; Range: SMALL AMT; Units: /hpf; Status: F Test: BACTERIA, URINE; Value: MOD AMOUNT; Range: NONE; Abnormal: Above high normal; Status: F Test: HYALINE CAST, URINE; Value: NONE SEEN; Range: 0-1; Units: /lpf; Status: F Test: MICROSCOPIC EXAM; Value: PERFORMED; Status: F Lab Order: -Blood Culture; SPEC'M 11/20/16 22:49 Test: BLOOD CULTURE; Value: No growth after 24 hours . All specimens observed; Status: F Test: BLOOD CULTURE; Value: for 5 days. Results final at that time.; Status: F Test: BLOOD CULTURE; Value: No Growth after 48 hours. All Specimens observed; Status: F Test: BLOOD CULTURE; Value: for 7 days. Results final at that time.; Status: F Lab Order: Urine Culture; SPEC'M 11/20/16 21:39 Test: URINE CULTURE; Value: <EXTERNAL COMMENT eCWMed> FULL REPORT IN LAB NOTES (eCW and Medent).; Status: F Test: URINE CULTURE; Value: ORGANISM 1: YEAST LIKE ORGANISM; Status: F Test: URINE CULTURE; Value: YEAST LIKE ORGANISM; Status: F Test: URINE CULTURE; Value: COLONY COUNT CFU/ml 100,000; Status: F Lab Order: BLOOD CULTURES; SPEC'M 11/20/16 23:17 Test: BLOOD CULTURE; Value: No growth after 24 hours . All specimens observed; Status: F Test: BLOOD CULTURE; Value: for 5 days. Results final at that time.; Status: F Test: BLOOD CULTURE; Value: No Growth after 48 hours. All Specimens observed; Status: F Test: BLOOD CULTURE; Value: for 7 days. Results final at that time.; Status: F Outcome: 04:08 Discharge ordered by Provider. cs11 04:25 Discharge Assessment: Patient awake, alert and oriented x 3. No cognitive and/or ko2 functional deficits noted. Patient verbalized understanding of disposition instructions. patient administered narcotics - no. The following High Risk Discharge criteria are identified: None. Discharged to home ambulatory, with significant other. Condition: good. No special radiology studies were completed. Property sent home with patient. 04:26 Patient left the ED. ko2 12:51 [facility] pharmacist called stating that they did not carry cefpodoxime and the pt is [facility] unable to afford RX anyway, could it be changed. Dr Swanson reviewed the chart and changed the antibiotic to Keflex 500 mg QID x 10 days.:. Addendum: 11/23/2016 11:07 Narrative: Urine culture results reviewed with Dr. Richards and Rx written for Flagyl 500 kcs mg BID x 10 days and patient is to f/u with PCP. Message left for patient to call us with her pharmacy of choice. Signatures: Digna Naik, RN RN Lainey Recinos, NICHELLE RN Zoraida Branham, RN RN mcp Kamilla Babin, Timothy Reg gb Sammy, Nicol, DIET ASSISTANT DIET ASSISTANT le Tawana, Caitlin, SUPERINTENDENT SYSTEM OPERATION SUPERINTENDENT SYSTEM OPERATION mary ann Abelardo Kohler, DO DO cs11 Lamonte Roque gr2 Shira Calabrese RN RN ko2 Ivana Elliott b Jaden, Jaquelin, SUPERINTENDENT SYSTEM OPERATION SUPERINTENDENT SYSTEM OPERATION cln Corrections: (The following items were deleted from the chart) 11/20 21:56 21:41 URINALYSIS+LAB sent. ko2 EDMS MTDD
--- NOTE | 2016-11-23 11:12 | EDDOCDS ---
Physician Documentation [facility] Name: Allison Weiss Age: 61 yrs Sex: Female : 1955 Arrival Date: 11/20/2016 Time: 20:50 Bed 17 Private MD: Khadijah Thomas Abdul Disposition: 11/21/16 04:08 Discharged to Home/Self Care. Impression: Urinary tract infection, site not specified - pyelonephritis, Vomiting, Urticaria. - Condition is Stable. - Discharge Instructions: Hives, Pyelonephritis, Adult, Nausea and Vomiting. - Prescriptions for cefpodoxime 200 mg Oral tablet - take 1 tablet by ORAL route every 12 hours for 14 days with food; 28 tablet. hydroxyzine HCl 25 mg Oral tablet - take 1 tablet by ORAL route 4 times per day as needed for hives/itching; 20 tablet. Medrol (Dylan) 4 mg Oral Tablets, Dose Pack - take 1 Pack by ORAL route as directed - follow package instructions; 1 packet. ZOFRAN ODT 4 mg - dissolve 1 tablet by ORAL route 4 times per day As needed do not chew, do not swallow whole; 10 tablet. - Medication Reconciliation, Local Pharmacy Hours form. - Follow up: Khadijah Thomas; When: Keep your scheduled appointment on Tuesday; Reason: Recheck today's complaints, Continuance of care. - Problem is an ongoing problem. - Symptoms have improved. - Notes: Keep hydrated Return to the ED for worsening symptoms, especially fever, dizziness, persistent vomiting, shortness of breath or worsening rash otherwise, keep your scheduled appointment, with your PCP on Tuesday Historical: - Allergies: no known allergies; - Home Meds: 1. Carafate 1 gram Oral tab three times a day 2. Cipro 500 mg Oral tab 1 tab every 12 hours 3. furosemide 40 mg Oral tab once daily 4. metformin 500 mg Oral tab 2 tabs 2 times per day 5. Oxygen 1.5 liters at night as needed 6. potassium chloride 20 mEq Oral TbER once daily 7. prednisone 5 mg Oral TbEC three times a day 8. hydrocodone-acetaminophen 5-325 mg Oral tab every 8 hours as needed 9. Xanax 1 mg Oral tab four times a day 10. lisinopril 10 mg Oral tab 1 tab once daily - PMHx: CHF; COPD; Diabetes - NIDDM: controlled; - PSHx: cyst removed leg; - Social history: Smoking status: Patient states former smoker of tobacco. No barriers to communication noted, The patient speaks fluent [place] African. - Family history: Not pertinent. - : The pt / caregiver states he / she is not on anticoagulants. Home medication list is obtained from the patient. - Exposure Risk Screening:: None identified. Vital Signs: 11/20 20:53 BP 93 / 70; Pulse 115; Resp 18 S; Temp 98.7(O); Pulse Ox 97% on R/A; Weight 84.37 kg / gr2 186 lbs (R); Height 5 ft. 5 in. (165.10 cm) (R); Pain 2/10; 22:24 Pulse 96 MON; Pulse Ox 97% ; ko2 22:25 BP 86 / 49 (auto/); ko2 22:39 Pulse 94 MON; Pulse Ox 98% ; ko2 22:40 BP 88 / 54 (auto/); ko2 22:54 Pulse 94 MON; Pulse Ox 95% ; ko2 22:55 BP 90 / 54 (auto/); ko2 23:09 Pulse 94 MON; Pulse Ox 95% ; ko2 23:10 BP 97 / 50 (auto/); ko2 23:25 BP 75 / 36 (auto/); ko2 23:25 Pulse 90 MON; Pulse Ox 94% ; ko2 23:36 BP 109 / 53 (auto/); ko2 23:36 Pulse 92 MON; Pulse Ox 94% ; ko2 23:39 Pulse 92 MON; Pulse Ox 94% ; ko2 23:40 BP 104 / 55 (auto/); ko2 23:54 Pulse 90 MON; Pulse Ox 95% ; ko2 23:55 BP 104 / 55 (auto/); ko2 02/05 00:10 BP 100 / 50 (auto/); ko2 00:10 Pulse 90 MON; Pulse Ox 95% ; ko2 00:25 BP 103 / 52 (auto/); ko2 00:25 Pulse 88 MON; Pulse Ox 94% ; ko2 02:09 Pulse Ox 93% ; ko2 02:10 BP 93 / 54 (auto/); ko2 04:12 BP 111 / 61; Pulse 82; Resp 20; Temp 96.9(TE); Pulse Ox 95% on 2 lpm NC; Pain 0/10; mary ann 11/20 20:53 Body Mass Index 30.95 (84.37 kg, 165.10 cm) gr2 MDM: 11/20 21:19 NS 0.9% 1000 ml IV at bolus once ordered. le 21:19 NS 0.9% 1000 ml IV at 100 mL/hr continuous ordered. le 21:19 Ondansetron 4 mg IVP once ordered. le 21:19 IV Saline Lock ordered. le 21:19 Undress patient appropriately for examination ordered. le 21:19 Solu-MEDROL 125 mg IVP once ordered. le 21:19 hydrOXYzine 25 mg PO once ordered. le 21:19 Basic Metabolic Profile Ordered. EDMS 21:19 CBC with Diff Ordered. EDMS 21:19 Lipase Ordered. EDMS 21:19 Liver Profile Ordered. EDMS 21:20 NOTHING BY MOUTH+DIET ordered. EDMS 21:56 URINALYSIS MANUAL Ordered. EDMS 21:57 CBC with Diff Reviewed. le 22:00 MICROSCOPIC, URINE Ordered. EDMS 22:22 Basic Metabolic Profile Reviewed. le 22:22 Liver Profile Reviewed. le 22:22 URINALYSIS MANUAL Reviewed. le 22:22 MICROSCOPIC, URINE Reviewed. le 22:22 Lipase Reviewed. le 22:25 -Blood Culture (Adults Only), peripheral from different site, or from device/port/PICC le etc. if present ordered. 22:25 -Blood Culture Ordered. EDMS 22:26 Urine Culture Ordered. EDMS 22:28 Piperacillin-Tazobactam 3.375 grams IVPB once over 30 mins; dilute in 50mL of NS or D5W le ordered. 22:29 -Blood Culture (Adults Only), peripheral from different site, or from device/port/PICC ml3 etc. if present complete. 22:30 BLOOD CULTURES Ordered. EDMS 22:58 Financial registration complete. gjb 23:37 [facility] Payment Agreement was scanned into [employer] and attached to record. gjb 23:53 NS 0.9% 1000 ml IV at 250 mL/hr continuous; piggyback with abx ordered. le 11/21 12:01 T-Sheet-- Draft Copy was scanned into [employer] and attached to record. gb Administered Medications: 11/20 21:52 Drug: NS 0.9% 1000 ml [sodium chloride 0.9 % intravenous solution] Route: IV; Rate: ko2 bolus; Site: left antecubital; 23:34 Follow up: IV Status: Completed infusion; IV Intake: 1000ml ko2 21:52 Drug: Solu-MEDROL 125 mg [Solu-Medrol 500 mg intravenous solution (125 mg)] Route: IVP; ko2 Site: left antecubital; 21:57 Drug: Ondansetron 4 mg [ondansetron HCl 2 mg/mL intravenous solution (2 mL)] Route: ko2 IVP; Site: left antecubital; 21:57 Drug: hydrOXYzine 25 mg [hydroxyzine HCl 25 mg tablet (1 tabs)] Route: PO; ko2 23:34 Drug: NS 0.9% 1000 ml [sodium chloride 0.9 % intravenous solution] Route: IV; Rate: 100 ko2 mL/hr; Site: left antecubital; 11/21 00:06 Drug: NS 0.9% 1000 ml [sodium chloride 0.9 % intravenous solution] Route: IV; Rate: 250 ko2 mL/hr; Site: left antecubital; 03:43 Follow up: IV Status: Completed infusion; IV Intake: 1000ml ko2 00:07 Drug: Piperacillin-Tazobactam 3.375 grams [piperacillin-tazobactam 3.375 gram ko2 intravenous solution] Route: IVPB; Infused Over: 30 mins; Site: left antecubital; 00:49 Follow up: IV Status: Completed infusion; IV Intake: 50ml ko2 Signatures: Dispatcher [employer] Zoraida Guevara RN RN mcp Barnhardt, Gloria, Reg Reg Shirley Gomez, [employer] ml3 Nicol Christianson, FREELANCE PROGRAMMER/APP DEVELOPER FREELANCE PROGRAMMER/APP DEVELOPER Abelardo Bosch DO DO cs11 Shira Calabrese RN RN ko2 Ivana Elliott The chart was reviewed and I authenticate all verbal orders and agree with the evaluation and treatment provided.Corrections: (The following items were deleted from the chart) 11/20 21:56 21:19 URINALYSIS+LAB ordered. [facility] Attachments: 23:37 [facility] Payment Agreement kevon 11/21 12:01 T-Sheet-- Draft Copy gb Chart Complete MTDD
--- NOTE | 2016-11-23 11:12 | EDDOCDS ---
Physician Documentation [facility] Name: Allison Weiss Age: 61 yrs Sex: Female : 1955 Arrival Date: 11/20/2016 Time: 20:50 Bed 17 Private MD: Khadijah Thomas Abdul Disposition: 11/21/16 04:08 Discharged to Home/Self Care. Impression: Urinary tract infection, site not specified - pyelonephritis, Vomiting, Urticaria. - Condition is Stable. - Discharge Instructions: Hives, Pyelonephritis, Adult, Nausea and Vomiting. - Prescriptions for cefpodoxime 200 mg Oral tablet - take 1 tablet by ORAL route every 12 hours for 14 days with food; 28 tablet. hydroxyzine HCl 25 mg Oral tablet - take 1 tablet by ORAL route 4 times per day as needed for hives/itching; 20 tablet. Medrol (Dylan) 4 mg Oral Tablets, Dose Pack - take 1 Pack by ORAL route as directed - follow package instructions; 1 packet. ZOFRAN ODT 4 mg - dissolve 1 tablet by ORAL route 4 times per day As needed do not chew, do not swallow whole; 10 tablet. - Medication Reconciliation, Local Pharmacy Hours form. - Follow up: Khadijah Thomas; When: Keep your scheduled appointment on Tuesday; Reason: Recheck today's complaints, Continuance of care. - Problem is an ongoing problem. - Symptoms have improved. - Notes: Keep hydrated Return to the ED for worsening symptoms, especially fever, dizziness, persistent vomiting, shortness of breath or worsening rash otherwise, keep your scheduled appointment, with your PCP on Tuesday Historical: - Allergies: no known allergies; - Home Meds: 1. Carafate 1 gram Oral tab three times a day 2. Cipro 500 mg Oral tab 1 tab every 12 hours 3. furosemide 40 mg Oral tab once daily 4. metformin 500 mg Oral tab 2 tabs 2 times per day 5. Oxygen 1.5 liters at night as needed 6. potassium chloride 20 mEq Oral TbER once daily 7. prednisone 5 mg Oral TbEC three times a day 8. hydrocodone-acetaminophen 5-325 mg Oral tab every 8 hours as needed 9. Xanax 1 mg Oral tab four times a day 10. lisinopril 10 mg Oral tab 1 tab once daily - PMHx: CHF; COPD; Diabetes - NIDDM: controlled; - PSHx: cyst removed leg; - Social history: Smoking status: Patient states former smoker of tobacco. No barriers to communication noted, The patient speaks fluent Macedonian. - Family history: Not pertinent. - : The pt / caregiver states he / she is not on anticoagulants. Home medication list is obtained from the patient. - Exposure Risk Screening:: None identified. Vital Signs: 11/20 20:53 BP 93 / 70; Pulse 115; Resp 18 S; Temp 98.7(O); Pulse Ox 97% on R/A; Weight 84.37 kg / gr2 186 lbs (R); Height 5 ft. 5 in. (165.10 cm) (R); Pain 2/10; 22:24 Pulse 96 MON; Pulse Ox 97% ; ko2 22:25 BP 86 / 49 (auto/); ko2 22:39 Pulse 94 MON; Pulse Ox 98% ; ko2 22:40 BP 88 / 54 (auto/); ko2 22:54 Pulse 94 MON; Pulse Ox 95% ; ko2 22:55 BP 90 / 54 (auto/); ko2 23:09 Pulse 94 MON; Pulse Ox 95% ; ko2 23:10 BP 97 / 50 (auto/); ko2 23:25 BP 75 / 36 (auto/); ko2 23:25 Pulse 90 MON; Pulse Ox 94% ; ko2 23:36 BP 109 / 53 (auto/); ko2 23:36 Pulse 92 MON; Pulse Ox 94% ; ko2 23:39 Pulse 92 MON; Pulse Ox 94% ; ko2 23:40 BP 104 / 55 (auto/); ko2 23:54 Pulse 90 MON; Pulse Ox 95% ; ko2 23:55 BP 104 / 55 (auto/); ko2 02/05 00:10 BP 100 / 50 (auto/); ko2 00:10 Pulse 90 MON; Pulse Ox 95% ; ko2 00:25 BP 103 / 52 (auto/); ko2 00:25 Pulse 88 MON; Pulse Ox 94% ; ko2 02:09 Pulse Ox 93% ; ko2 02:10 BP 93 / 54 (auto/); ko2 04:12 BP 111 / 61; Pulse 82; Resp 20; Temp 96.9(TE); Pulse Ox 95% on 2 lpm NC; Pain 0/10; mary ann 11/20 20:53 Body Mass Index 30.95 (84.37 kg, 165.10 cm) gr2 MDM: 11/20 21:19 NS 0.9% 1000 ml IV at bolus once ordered. le 21:19 NS 0.9% 1000 ml IV at 100 mL/hr continuous ordered. le 21:19 Ondansetron 4 mg IVP once ordered. le 21:19 IV Saline Lock ordered. le 21:19 Undress patient appropriately for examination ordered. le 21:19 Solu-MEDROL 125 mg IVP once ordered. le 21:19 hydrOXYzine 25 mg PO once ordered. le 21:19 Basic Metabolic Profile Ordered. EDMS 21:19 CBC with Diff Ordered. EDMS 21:19 Lipase Ordered. EDMS 21:19 Liver Profile Ordered. EDMS 21:20 NOTHING BY MOUTH+DIET ordered. EDMS 21:56 URINALYSIS MANUAL Ordered. EDMS 21:57 CBC with Diff Reviewed. le 22:00 MICROSCOPIC, URINE Ordered. EDMS 22:22 Basic Metabolic Profile Reviewed. le 22:22 Liver Profile Reviewed. le 22:22 URINALYSIS MANUAL Reviewed. le 22:22 MICROSCOPIC, URINE Reviewed. le 22:22 Lipase Reviewed. le 22:25 -Blood Culture (Adults Only), peripheral from different site, or from device/port/PICC le etc. if present ordered. 22:25 -Blood Culture Ordered. EDMS 22:26 Urine Culture Ordered. EDMS 22:28 Piperacillin-Tazobactam 3.375 grams IVPB once over 30 mins; dilute in 50mL of NS or D5W le ordered. 22:29 -Blood Culture (Adults Only), peripheral from different site, or from device/port/PICC ml3 etc. if present complete. 22:30 BLOOD CULTURES Ordered. EDMS 22:58 Financial registration complete. gjb 23:37 [facility] Payment Agreement was scanned into [employer] and attached to record. gjb 23:53 NS 0.9% 1000 ml IV at 250 mL/hr continuous; piggyback with abx ordered. le 11/21 12:01 T-Sheet-- Draft Copy was scanned into [employer] and attached to record. gb Administered Medications: 11/20 21:52 Drug: NS 0.9% 1000 ml [sodium chloride 0.9 % intravenous solution] Route: IV; Rate: ko2 bolus; Site: left antecubital; 23:34 Follow up: IV Status: Completed infusion; IV Intake: 1000ml ko2 21:52 Drug: Solu-MEDROL 125 mg [Solu-Medrol 500 mg intravenous solution (125 mg)] Route: IVP; ko2 Site: left antecubital; 21:57 Drug: Ondansetron 4 mg [ondansetron HCl 2 mg/mL intravenous solution (2 mL)] Route: ko2 IVP; Site: left antecubital; 21:57 Drug: hydrOXYzine 25 mg [hydroxyzine HCl 25 mg tablet (1 tabs)] Route: PO; ko2 23:34 Drug: NS 0.9% 1000 ml [sodium chloride 0.9 % intravenous solution] Route: IV; Rate: 100 ko2 mL/hr; Site: left antecubital; 11/21 00:06 Drug: NS 0.9% 1000 ml [sodium chloride 0.9 % intravenous solution] Route: IV; Rate: 250 ko2 mL/hr; Site: left antecubital; 03:43 Follow up: IV Status: Completed infusion; IV Intake: 1000ml ko2 00:07 Drug: Piperacillin-Tazobactam 3.375 grams [piperacillin-tazobactam 3.375 gram ko2 intravenous solution] Route: IVPB; Infused Over: 30 mins; Site: left antecubital; 00:49 Follow up: IV Status: Completed infusion; IV Intake: 50ml ko2 Signatures: Dispatcher [employer] Zoraida Guevara RN RN mcp Barnhardt, Gloria, Reg Reg Shirley Gomez, Director Of [employer] ml3 Nicol Christianson, WEB CONTENT WRITER WEB CONTENT WRITER Abelardo Bosch DO DO cs11 Shira Calabrese RN RN ko2 Ivana Elliott The chart was reviewed and I authenticate all verbal orders and agree with the evaluation and treatment provided.Corrections: (The following items were deleted from the chart) 11/20 21:56 21:19 URINALYSIS+LAB ordered. [facility] Attachments: 23:37 [facility] Payment Agreement kevon 11/21 12:01 T-Sheet-- Draft Copy gb Chart Complete MTDD
--- NOTE | 2016-11-23 11:12 | EDDOCDS ---
Nurse's Notes [facility] Name: Allison Weiss Age: 61 yrs Sex: Female : 1955 Arrival Date: 11/20/2016 Time: 20:50 Bed 17 Private MD: Khadijah Thomas Abdul Diagnosis: Urinary tract infection, site not specified-pyelonephritis;Vomiting;Urticaria Presentation: 11/20 20:58 Presenting complaint: Patient states: Stomach ache, vomiting, chills, rash on abdomen mcp and back. Adult Sepsis Screening: The patient does not have new or worsening altered mentation. Patient's respiratory rate is less than 22. Systolic blood pressure is less than or equal to 100 (1 point). Patient has a qSOFA score of 1- Negative Sepsis Screen. Suicide/Homicide risk assessment- the patient denies having any suicidal and/or homicidal ideations and does not present with any other emotional, behavioral or mental health complaints. Status: Patient is not a patient financial services coordinator or dependent. Transition of care: patient was not received from another setting of care. 20:58 Acuity: MARTHA Level 3 [facility] 20:58 Method Of Arrival: Wheelchair [facility] Triage Assessment: 21:02 General: Appears uncomfortable, Behavior is cooperative. Pain: Location: abdomen Pain mcp currently is 10 out of 10 on a pain scale. HIV screening NA for this visit Offered previously. Neurological: No deficits noted. Respiratory: Airway is patent Respiratory effort is even, unlabored. GI: Reports lower abdominal pain. Derm: Skin is pink, warm & dry. Historical: - Allergies: no known allergies; - Home Meds: 1. Carafate 1 gram Oral tab three times a day 2. Cipro 500 mg Oral tab 1 tab every 12 hours 3. furosemide 40 mg Oral tab once daily 4. metformin 500 mg Oral tab 2 tabs 2 times per day 5. Oxygen 1.5 liters at night as needed 6. potassium chloride 20 mEq Oral TbER once daily 7. prednisone 5 mg Oral TbEC three times a day 8. hydrocodone-acetaminophen 5-325 mg Oral tab every 8 hours as needed 9. Xanax 1 mg Oral tab four times a day 10. lisinopril 10 mg Oral tab 1 tab once daily - PMHx: CHF; COPD; Diabetes - NIDDM: controlled; - PSHx: cyst removed leg; - Social history: Smoking status: Patient states former smoker of tobacco. No barriers to communication noted, The patient speaks fluent British. - Family history: Not pertinent. - : The pt / caregiver states he / she is not on anticoagulants. Home medication list is obtained from the patient. - Exposure Risk Screening:: None identified. Screenin:54 Infection Control. gr2 11/21 02:57 Screening information is obtained from the patient. Fall risk: No risks identified. ko2 Assistance ADL's: requires no assistance with activities of daily living. Abuse/DV Screen: The patient / caregiver reports he/she is: not in a situation that causes fear, pain or injury. Nutritional screening: No deficits noted. Advance Directives: Currently, there is no health care proxy. There is no active DNR order. There is no living will. There is no Power of [employer]. home support is adequate. Assessment: 11/20 21:41 General: Appears in no apparent distress, Behavior is appropriate for age, cooperative. ko2 Pain: Location: abdomen. Neurological: Level of Consciousness is awake, alert. Respiratory: Airway is patent Respiratory effort is even, unlabored. GI: Bowel sounds present X 4 quads. Abd is soft X 4 quads. Derm: Rash noted that is itchy. Musculoskeletal: Range of motion intact in all extremities. 23:00 General: Appears in no apparent distress, Behavior is appropriate for age, cooperative. ko2 23:00 Pain: Location: abdomen. Neurological: Level of Consciousness is awake, alert. ko2 Respiratory: Airway is patent Respiratory effort is even, unlabored. GI: Abdomen is non- distended obese. Derm:. Musculoskeletal: Range of motion intact in all extremities. 11/21 00:07 General: Appears in no apparent distress, comfortable, pt currently appears to be ko2 asleep on the stretcher. Respirations unlabored at this time. Skin warm and dry. No concerns at this time. . 01:12 General: Appears in no apparent distress, comfortable, Behavior is appropriate for age, ko2 cooperative. Pain: Location: abdomen. Neurological: Level of Consciousness is awake, alert. Respiratory: Airway is patent Respiratory effort is even, unlabored. Derm: Skin is normal. 02:00 General: Appears in no apparent distress, comfortable, Behavior is appropriate for age, ko2 cooperative, Smells of. Neurological: Level of Consciousness is awake, alert. Respiratory: Airway is patent Respiratory effort is even, unlabored. Derm: Skin is normal. 03:04 General: Appears in no apparent distress, comfortable, Behavior is appropriate for age, ko2 cooperative. Neurological: Level of Consciousness is awake, alert. Respiratory: Airway is patent Respiratory effort is even, unlabored. Derm: Skin is normal. 04:25 General: Appears in no apparent distress, comfortable, Behavior is appropriate for age, ko2 cooperative. Neurological: Level of Consciousness is awake, alert. Respiratory: Airway is patent Respiratory effort is even, unlabored. Derm: Skin is normal. Vital Signs: 11/20 20:53 BP 93 / 70; Pulse 115; Resp 18 S; Temp 98.7(O); Pulse Ox 97% on R/A; Weight 84.37 kg gr2 (R); Height 5 ft. 5 in. (165.10 cm) (R); Pain 2/10; 22:24 Pulse 96 MON; Pulse Ox 97% ; ko2 22:25 BP 86 / 49 (auto/); ko2 22:39 Pulse 94 MON; Pulse Ox 98% ; ko2 22:40 BP 88 / 54 (auto/); ko2 22:54 Pulse 94 MON; Pulse Ox 95% ; ko2 22:55 BP 90 / 54 (auto/); ko2 23:09 Pulse 94 MON; Pulse Ox 95% ; ko2 23:10 BP 97 / 50 (auto/); ko2 23:25 BP 75 / 36 (auto/); ko2 23:25 Pulse 90 MON; Pulse Ox 94% ; ko2 23:36 BP 109 / 53 (auto/); ko2 23:36 Pulse 92 MON; Pulse Ox 94% ; ko2 23:39 Pulse 92 MON; Pulse Ox 94% ; ko2 23:40 BP 104 / 55 (auto/); ko2 23:54 Pulse 90 MON; Pulse Ox 95% ; ko2 23:55 BP 104 / 55 (auto/); ko2 11/21 00:10 BP 100 / 50 (auto/); ko2 00:10 Pulse 90 MON; Pulse Ox 95% ; ko2 00:25 BP 103 / 52 (auto/); ko2 00:25 Pulse 88 MON; Pulse Ox 94% ; ko2 02:09 Pulse Ox 93% ; ko2 02:10 BP 93 / 54 (auto/); ko2 04:12 BP 111 / 61; Pulse 82; Resp 20; Temp 96.9(TE); Pulse Ox 95% on 2 lpm NC; Pain 0/10; mary ann 11/20 20:53 Body Mass Index 30.95 (84.37 kg, 165.10 cm) gr2 Vitals: 11/20 20:53 Log In Time: November 20, 2016 at 20:53. gr2 ED Course: 20:52 Patient visited by Lamonte Roque. gr2 20:52 Patient moved to Waiting gr2 20:53 Khadijah Thomas is Private Physician. gr2 20:55 Patient visited by Lamonte Roque. gr2 20:55 Patient moved to Pre RCE gr2 20:59 Triage Initiated mcp 21:02 Patient visited by Zoraida Pedro RN. mcp 21:05 Shira Calabrese RN is Primary Nurse. mcp 21:05 Nicol Christianson FNP is PHCP. le 21:05 Patient moved to 17 mcp 21:09 Patient visited by Nicol Christianson FNP. le 21:09 Patient visited by Nicol Christianson FNP. le 21:12 Patient visited by Caitlin Gilliam PCA. mary ann 21:12 Pt greeted and oriented to ED. Patient advised of names of staff involved in care, mary ann location of call jensen, wait times and NPO status. Accompanied by Significant Other, Patient has correct armband on for positive identification. Placed in gown. Call light in reach. Side rails up X2. personnel monitor on. Pulse ox on. NIBP on. 21:41 Basic Metabolic Profile Sent. ko2 21:41 CBC with Diff Sent. ko2 21:41 Lipase Sent. ko2 21:41 Liver Profile Sent. ko2 21:42 Inserted saline lock: 20 gauge in left antecubital area and blood collected. ko2 21:57 URINALYSIS MANUAL Sent. ko2 21:58 Patient visited by Shira Calabrese RN. ko2 22:50 Patient visited by Shira Calabrese,NICHELLE. ko2 23:19 BLOOD CULTURES Sent. cln 23:37 [facility] Payment Agreement was scanned into [employer] and attached to record. gjb 23:47 Patient visited by Shira Calabrese RN. ko2 02 00:49 Patient visited by Caitlin Gilliam PCA. mary ann 01:13 Patient visited by Shira Calabrese RN. ko2 02:09 Patient visited by Shira Calabrese RN. ko2 02:57 The patient / caregiver is instructed regarding the plan of care and ED course. ko2 03:04 Patient visited by Shira Calabrese RN. ko2 03:43 Patient visited by Shira Calabrese RN. ko2 04:08 Khadijah Thomas is Referral Physician. cs11 04:08 Abelardo Kohler DO is Attending Physician. cs11 04:13 Patient visited by Caitlin Gilliam PCA. mary ann 04:25 Discontinued lock intact, bleeding controlled, pressure dressing applied, No ko2 redness/swelling at site. No procedures done that require assistance. 12:01 T-Sheet-- Draft Copy was scanned into [employer] and attached to record. gb Administered Medications: 11/20 21:52 Drug: NS 0.9% 1000 ml [sodium chloride 0.9 % intravenous solution] Route: IV; Rate: ko2 bolus; Site: left antecubital; 23:34 Follow up: IV Status: Completed infusion; IV Intake: 1000ml ko2 21:52 Drug: Solu-MEDROL 125 mg [Solu-Medrol 500 mg intravenous solution (125 mg)] Route: IVP; ko2 Site: left antecubital; 21:57 Drug: Ondansetron 4 mg [ondansetron HCl 2 mg/mL intravenous solution (2 mL)] Route: ko2 IVP; Site: left antecubital; 21:57 Drug: hydrOXYzine 25 mg [hydroxyzine HCl 25 mg tablet (1 tabs)] Route: PO; ko2 23:34 Drug: NS 0.9% 1000 ml [sodium chloride 0.9 % intravenous solution] Route: IV; Rate: 100 ko2 mL/hr; Site: left antecubital; 11/21 00:06 Drug: NS 0.9% 1000 ml [sodium chloride 0.9 % intravenous solution] Route: IV; Rate: 250 ko2 mL/hr; Site: left antecubital; 03:43 Follow up: IV Status: Completed infusion; IV Intake: 1000ml ko2 00:07 Drug: Piperacillin-Tazobactam 3.375 grams [piperacillin-tazobactam 3.375 gram ko2 intravenous solution] Route: IVPB; Infused Over: 30 mins; Site: left antecubital; 00:49 Follow up: IV Status: Completed infusion; IV Intake: 50ml ko2 Intake: 11/20 23:34 IV: 1000.00ml; Total: 1000.00ml. ko2 11/21 00:49 IV: 50.00ml; Total: 1050.00ml. ko2 03:43 IV: 1000.00ml; Total: 2050.00ml. ko2 Order Results: Lab Order: Basic Metabolic Profile; SPEC'M 11/20/16 21:39 Test: GLUCOSE, FASTING; Value: 101; Range: 80-110; Units: MG/DL; Status: F Test: BLOOD UREA NITROGEN; Value: 25; Range: 7-18; Abnormal: Above high normal; Units: MG/DL; Status: F Test: CREATININE FOR GFR; Value: 1.21; Range: 0.55-1.02; Abnormal: Above high normal; Units: MG/DL; Status: F Test: GLOMERULAR FILTRATION RATE; Value: 48.2; Range: >45; Status: F Test: SODIUM LEVEL; Value: 143; Range: 136-145; Units: MEQ/L; Status: F Test: POTASSIUM SERUM; Value: 5.6; Range: 3.5-5.1; Abnormal: Above high normal; Units: MEQ/L; Status: F Test: CHLORIDE LEVEL; Value: 108; Range: 98-107; Abnormal: Above high normal; Units: MEQ/L; Status: F Test: CARBON DIOXIDE LEVEL; Value: 29; Range: 21-32; Units: MEQ/L; Status: F Test: ANION GAP; Value: 6; Range: 8-16; Abnormal: Below low normal; Units: MEQ/L; Status: F Test: CALCIUM LEVEL; Value: 8.4; Range: 8.8-10.2; Abnormal: Below low normal; Units: MG/DL; Status: F Test Note: ; Units are mL/min/1.73 m2 Chronic Kidney Disease Staging per NKF: Stage I & II GFR >=60 Normal to Mildly Decreased Stage III GFR 30-59 Moderately Decreased Stage IV GFR 15-29 Severely Decreased Stage V GFR <15 Very Little GFR Left ESRD GFR <15 on DIVERSITY MANAGER Lab Order: CBC with Diff; ALAN'David 11/20/16 21:39 Test: WHITE BLOOD COUNT; Value: 11.3; Range: 4.0-10.0; Abnormal: Above high normal; Units: K/mm3; Status: F Test: RED BLOOD COUNT; Value: 3.40; Range: 4.00-5.40; Abnormal: Below low normal; Units: M/mm3; Status: F Test: HEMOGLOBIN; Value: 10.5; Range: 12.0-16.0; Abnormal: Below low normal; Units: g/dl; Status: F Test: HEMATOCRIT; Value: 32.9; Range: 36.0-47.0; Abnormal: Below low normal; Units: %; Status: F Test: MEAN CORPUSCULAR VOLUME; Value: 96.7; Range: 80.0-96.0; Abnormal: Above high normal; Units: fl; Status: F Test: MEAN CORPUSCULAR HEMOGLOBIN; Value: 30.8; Range: 27.0-33.0; Units: pg; Status: F Test: MEAN CORPUSCULAR HGB CONC; Value: 31.9; Range: 32.0-36.5; Abnormal: Below low normal; Units: g/dl; Status: F Test: RED CELL DISTRIBUTION WIDTH; Value: 13.7; Range: 11.5-14.5; Units: %; Status: F Test: PLATELET COUNT, AUTOMATED; Value: 378; Range: 150-450; Units: k/mm3; Status: F Test: NEUTROPHILS %; Value: 72.3; Range: 36.0-66.0; Abnormal: Above high normal; Units: %; Status: F Test: LYMPH %; Value: 14.9; Range: 24.0-44.0; Abnormal: Below low normal; Units: %; Status: F Test: MONO %; Value: 8.4; Range: 0.0-5.0; Abnormal: Above high normal; Units: %; Status: F Test: EOS %; Value: 2.2; Range: 0.0-3.0; Units: %; Status: F Test: BASO %; Value: 0.6; Range: 0.0-1.0; Units: %; Status: F Test: LARGE UNSTAINED CELL %; Value: 1.6; Range: 0.0-4.0; Units: %; Status: F Test: NEUTROPHILS #; Value: 8.2; Range: 1.8-7.7; Abnormal: Above high normal; Units: K/mm3; Status: F Test: LYMPH #; Value: 1.9; Range: 1.5-4.5; Units: K/mm3; Status: F Test: MONO #; Value: 1.0; Range: 0.0-0.8; Abnormal: Above high normal; Units: K/mm3; Status: F Test: EOS #; Value: 0.2; Range: 0.0-0.50; Units: K/mm3; Status: F Test: BASO #; Value: 0.1; Range: 0.0-0.2; Units: K/mm3; Status: F Test: LARGE UNSTAINED CELL #; Value: 0.2; Range: 0.0-0.4; Units: K/mm3; Status: F Lab Order: Lipase; SPEC' 11/20/16 21:39 Test: LIPASE; Value: 105; Range: 73-393; Units: U/L; Status: F Lab Order: Liver Profile; SPEC' 11/20/16 21:39 Test: AST/SGOT; Value: 10; Range: 15-37; Abnormal: Below low normal; Units: U/L; Status: F Test: ALT/SGPT; Value: 18; Range: 12-78; Units: U/L; Status: F Test: ALKALINE PHOSPHATASE; Value: 89; Range: 45-117; Units: U/L; Status: F Test: BILIRUBIN,TOTAL; Value: 0.2; Range: 0.2-1.0; Units: MG/DL; Status: F Test: BILIRUBIN,DIRECT; Value: < 0.1; Range: 0.0-0.2; Units: MG/DL; Status: F Test: TOTAL PROTEIN; Value: 5.9; Range: 6.4-8.2; Abnormal: Below low normal; Units: GM/DL; Status: F Test: ALBUMIN; Value: 2.8; Range: 3.2-5.2; Abnormal: Below low normal; Units: GM/DL; Status: F Test: ALBUMIN/GLOBULIN RATIO; Value: 0.90; Range: 1.00-1.93; Abnormal: Below low normal; Status: F Lab Order: URINALYSIS MANUAL; SPEC'M 11/20/16 21:39 Test: APPEARANCE, URINE MANUAL; Value: CLOUDY; Range: CLEAR; Abnormal: Above high normal; Status: F Test: COLOR, URINE MANUAL; Value: YELLOW; Range: YELLOW; Status: F Test: PH,URINE MAN; Value: 5.0; Range: 5.0 - 9.0; Units: UNITS; Status: F Test: SPECIFIC GRAVITY,URINE MANUAL; Value: 1.020; Range: 1.002-1.035; Status: F Test: PROTEIN, URINE MANUAL; Value: NEGATIVE; Range: NEGATIVE; Units: mg/dL; Status: F Test: GLUCOSE, URINE (UA) MANUAL; Value: NEGATIVE; Range: NEGATIVE; Units: mg/dL; Status: F Test: KETONE, URINE MANUAL; Value: NEGATIVE; Range: NEGATIVE; Units: mg/dL; Status: F Test: UROBILINOGEN, URINE MANUAL; Value: NORMAL; Range: NORMAL; Units: mg/dl; Status: F Test: BILIRUBIN, URINE MANUAL; Value: NEGATIVE; Range: NEGATIVE; Status: F Test: NITRITE, URINE MANUAL; Value: NEGATIVE; Range: NEGATIVE; Status: F Test: LEUKOCYTE ESTERASE, URINE MAN; Value: POSITIVE; Range: NEGATIVE; Abnormal: Above high normal; Status: F Test: BLOOD URINE MANUAL; Value: POSITIVE; Range: NEGATIVE; Abnormal: Above high normal; Status: F Lab Order: MICROSCOPIC, URINE; SPEC'M 11/20/16 21:39 Test: WBC, URINE; Value: TNTC; Range: 0-3; Abnormal: Above high normal; Units: /hpf; Status: F Test: RBC, URINE; Value: 20-30; Range: 0-3; Abnormal: Above high normal; Units: /hpf; Status: F Test: SQUAMOUS EPITHELIAL CELL URINE; Value: NONE SEEN; Range: SMALL AMT; Units: /hpf; Status: F Test: BACTERIA, URINE; Value: MOD AMOUNT; Range: NONE; Abnormal: Above high normal; Status: F Test: HYALINE CAST, URINE; Value: NONE SEEN; Range: 0-1; Units: /lpf; Status: F Test: MICROSCOPIC EXAM; Value: PERFORMED; Status: F Lab Order: -Blood Culture; SPEC'M 11/20/16 22:49 Test: BLOOD CULTURE; Value: No growth after 24 hours . All specimens observed; Status: F Test: BLOOD CULTURE; Value: for 5 days. Results final at that time.; Status: F Test: BLOOD CULTURE; Value: No Growth after 48 hours. All Specimens observed; Status: F Test: BLOOD CULTURE; Value: for 7 days. Results final at that time.; Status: F Lab Order: Urine Culture; SPEC'M 11/20/16 21:39 Test: URINE CULTURE; Value: <EXTERNAL COMMENT eCWMed> FULL REPORT IN LAB NOTES (eCW and Medent).; Status: F Test: URINE CULTURE; Value: ORGANISM 1: YEAST LIKE ORGANISM; Status: F Test: URINE CULTURE; Value: YEAST LIKE ORGANISM; Status: F Test: URINE CULTURE; Value: COLONY COUNT CFU/ml 100,000; Status: F Lab Order: BLOOD CULTURES; SPEC'M 11/20/16 23:17 Test: BLOOD CULTURE; Value: No growth after 24 hours . All specimens observed; Status: F Test: BLOOD CULTURE; Value: for 5 days. Results final at that time.; Status: F Test: BLOOD CULTURE; Value: No Growth after 48 hours. All Specimens observed; Status: F Test: BLOOD CULTURE; Value: for 7 days. Results final at that time.; Status: F Outcome: 04:08 Discharge ordered by Provider. cs11 04:25 Discharge Assessment: Patient awake, alert and oriented x 3. No cognitive and/or ko2 functional deficits noted. Patient verbalized understanding of disposition instructions. patient administered narcotics - no. The following High Risk Discharge criteria are identified: None. Discharged to home ambulatory, with significant other. Condition: good. No special radiology studies were completed. Property sent home with patient. 04:26 Patient left the ED. ko2 12:51 [facility] pharmacist called stating that they did not carry cefpodoxime and the pt is [facility] unable to afford RX anyway, could it be changed. Dr Swanson reviewed the chart and changed the antibiotic to Keflex 500 mg QID x 10 days.:. Addendum: 11/23/2016 11:07 Narrative: Urine culture results reviewed with Dr. Richards and Rx written for Flagyl 500 kcs mg BID x 10 days and patient is to f/u with PCP. Message left for patient to call us with her pharmacy of choice. Signatures: Digna Naik, RN RN Lainey Recinos, NICHELLE RN Zoraida Branham, RN RN mcp Kamilla Babin, Timothy Reg gb Sammy, Nicol, THERAPEUTIC MASSAGE TECHNICIAN THERAPEUTIC MASSAGE TECHNICIAN le Tawana, Caitlin, RELIGIOUS STUDIES PROFESSOR RELIGIOUS STUDIES PROFESSOR mary ann Abelardo Kohler, DO DO cs11 Lamonte Roque gr2 Shira Calabrese RN RN ko2 Ivana Elliott b Jaden, Jaquelin, RELIGIOUS STUDIES PROFESSOR RELIGIOUS STUDIES PROFESSOR cln Corrections: (The following items were deleted from the chart) 11/20 21:56 21:41 URINALYSIS+LAB sent. ko2 EDMS Chart Complete MTDD
--- NOTE | 2016-11-23 15:27 | EDDOCDS ---
Nurse's Notes [facility] Name: Allison Weiss Age: 61 yrs Sex: Female : 1955 Arrival Date: 11/20/2016 Time: 20:50 Bed 17 Private MD: Khadijah Thomas Abdul Diagnosis: Urinary tract infection, site not specified-pyelonephritis;Vomiting;Urticaria Presentation: 11/20 20:58 Presenting complaint: Patient states: Stomach ache, vomiting, chills, rash on abdomen mcp and back. Adult Sepsis Screening: The patient does not have new or worsening altered mentation. Patient's respiratory rate is less than 22. Systolic blood pressure is less than or equal to 100 (1 point). Patient has a qSOFA score of 1- Negative Sepsis Screen. Suicide/Homicide risk assessment- the patient denies having any suicidal and/or homicidal ideations and does not present with any other emotional, behavioral or mental health complaints. Status: Patient is not a donor services specialist or dependent. Transition of care: patient was not received from another setting of care. 20:58 Acuity: MARTHA Level 3 [facility] 20:58 Method Of Arrival: Wheelchair [facility] Triage Assessment: 21:02 General: Appears uncomfortable, Behavior is cooperative. Pain: Location: abdomen Pain mcp currently is 10 out of 10 on a pain scale. HIV screening NA for this visit Offered previously. Neurological: No deficits noted. Respiratory: Airway is patent Respiratory effort is even, unlabored. GI: Reports lower abdominal pain. Derm: Skin is pink, warm & dry. Historical: - Allergies: no known allergies; - Home Meds: 1. Carafate 1 gram Oral tab three times a day 2. Cipro 500 mg Oral tab 1 tab every 12 hours 3. furosemide 40 mg Oral tab once daily 4. metformin 500 mg Oral tab 2 tabs 2 times per day 5. Oxygen 1.5 liters at night as needed 6. potassium chloride 20 mEq Oral TbER once daily 7. prednisone 5 mg Oral TbEC three times a day 8. hydrocodone-acetaminophen 5-325 mg Oral tab every 8 hours as needed 9. Xanax 1 mg Oral tab four times a day 10. lisinopril 10 mg Oral tab 1 tab once daily - PMHx: CHF; COPD; Diabetes - NIDDM: controlled; - PSHx: cyst removed leg; - Social history: Smoking status: Patient states former smoker of tobacco. No barriers to communication noted, The patient speaks fluent Angolan. - Family history: Not pertinent. - : The pt / caregiver states he / she is not on anticoagulants. Home medication list is obtained from the patient. - Exposure Risk Screening:: None identified. Screenin:54 Infection Control. gr2 11/21 02:57 Screening information is obtained from the patient. Fall risk: No risks identified. ko2 Assistance ADL's: requires no assistance with activities of daily living. Abuse/DV Screen: The patient / caregiver reports he/she is: not in a situation that causes fear, pain or injury. Nutritional screening: No deficits noted. Advance Directives: Currently, there is no health care proxy. There is no active DNR order. There is no living will. There is no Power of Window/Distribution Clerk. home support is adequate. Assessment: 11/20 21:41 General: Appears in no apparent distress, Behavior is appropriate for age, cooperative. ko2 Pain: Location: abdomen. Neurological: Level of Consciousness is awake, alert. Respiratory: Airway is patent Respiratory effort is even, unlabored. GI: Bowel sounds present X 4 quads. Abd is soft X 4 quads. Derm: Rash noted that is itchy. Musculoskeletal: Range of motion intact in all extremities. 23:00 General: Appears in no apparent distress, Behavior is appropriate for age, cooperative. ko2 23:00 Pain: Location: abdomen. Neurological: Level of Consciousness is awake, alert. ko2 Respiratory: Airway is patent Respiratory effort is even, unlabored. GI: Abdomen is non- distended obese. Derm:. Musculoskeletal: Range of motion intact in all extremities. 11/21 00:07 General: Appears in no apparent distress, comfortable, pt currently appears to be ko2 asleep on the stretcher. Respirations unlabored at this time. Skin warm and dry. No concerns at this time. . 01:12 General: Appears in no apparent distress, comfortable, Behavior is appropriate for age, ko2 cooperative. Pain: Location: abdomen. Neurological: Level of Consciousness is awake, alert. Respiratory: Airway is patent Respiratory effort is even, unlabored. Derm: Skin is normal. 02:00 General: Appears in no apparent distress, comfortable, Behavior is appropriate for age, ko2 cooperative, Smells of. Neurological: Level of Consciousness is awake, alert. Respiratory: Airway is patent Respiratory effort is even, unlabored. Derm: Skin is normal. 03:04 General: Appears in no apparent distress, comfortable, Behavior is appropriate for age, ko2 cooperative. Neurological: Level of Consciousness is awake, alert. Respiratory: Airway is patent Respiratory effort is even, unlabored. Derm: Skin is normal. 04:25 General: Appears in no apparent distress, comfortable, Behavior is appropriate for age, ko2 cooperative. Neurological: Level of Consciousness is awake, alert. Respiratory: Airway is patent Respiratory effort is even, unlabored. Derm: Skin is normal. Vital Signs: 11/20 20:53 BP 93 / 70; Pulse 115; Resp 18 S; Temp 98.7(O); Pulse Ox 97% on R/A; Weight 84.37 kg gr2 (R); Height 5 ft. 5 in. (165.10 cm) (R); Pain 2/10; 22:24 Pulse 96 MON; Pulse Ox 97% ; ko2 22:25 BP 86 / 49 (auto/); ko2 22:39 Pulse 94 MON; Pulse Ox 98% ; ko2 22:40 BP 88 / 54 (auto/); ko2 22:54 Pulse 94 MON; Pulse Ox 95% ; ko2 22:55 BP 90 / 54 (auto/); ko2 23:09 Pulse 94 MON; Pulse Ox 95% ; ko2 23:10 BP 97 / 50 (auto/); ko2 23:25 BP 75 / 36 (auto/); ko2 23:25 Pulse 90 MON; Pulse Ox 94% ; ko2 23:36 BP 109 / 53 (auto/); ko2 23:36 Pulse 92 MON; Pulse Ox 94% ; ko2 23:39 Pulse 92 MON; Pulse Ox 94% ; ko2 23:40 BP 104 / 55 (auto/); ko2 23:54 Pulse 90 MON; Pulse Ox 95% ; ko2 23:55 BP 104 / 55 (auto/); ko2 11/21 00:10 BP 100 / 50 (auto/); ko2 00:10 Pulse 90 MON; Pulse Ox 95% ; ko2 00:25 BP 103 / 52 (auto/); ko2 00:25 Pulse 88 MON; Pulse Ox 94% ; ko2 02:09 Pulse Ox 93% ; ko2 02:10 BP 93 / 54 (auto/); ko2 04:12 BP 111 / 61; Pulse 82; Resp 20; Temp 96.9(TE); Pulse Ox 95% on 2 lpm NC; Pain 0/10; mary ann 11/20 20:53 Body Mass Index 30.95 (84.37 kg, 165.10 cm) gr2 Vitals: 11/20 20:53 Log In Time: November 20, 2016 at 20:53. gr2 ED Course: 20:52 Patient visited by Lamonte Roque. gr2 20:52 Patient moved to Waiting gr2 20:53 Khadijah Thomas is Private Physician. gr2 20:55 Patient visited by Lamonte Roque. gr2 20:55 Patient moved to Pre RCE gr2 20:59 Triage Initiated mcp 21:02 Patient visited by Zoraida Pedro RN. mcp 21:05 Shira Calabrese RN is Primary Nurse. mcp 21:05 Nicol Christianson FNP is PHCP. le 21:05 Patient moved to 17 mcp 21:09 Patient visited by Nicol Christianson FNP. le 21:09 Patient visited by Nicol Christianson FNP. le 21:12 Patient visited by Caitlin Gilliam PCA. mary ann 21:12 Pt greeted and oriented to ED. Patient advised of names of staff involved in care, mary ann location of call jensen, wait times and NPO status. Accompanied by Significant Other, Patient has correct armband on for positive identification. Placed in gown. Call light in reach. Side rails up X2. personnel monitor on. Pulse ox on. NIBP on. 21:41 Basic Metabolic Profile Sent. ko2 21:41 CBC with Diff Sent. ko2 21:41 Lipase Sent. ko2 21:41 Liver Profile Sent. ko2 21:42 Inserted saline lock: 20 gauge in left antecubital area and blood collected. ko2 21:57 URINALYSIS MANUAL Sent. ko2 21:58 Patient visited by Shira Calabrese RN. ko2 22:50 Patient visited by Shira Calabrese,NICHELLE. ko2 23:19 BLOOD CULTURES Sent. cln 23:37 [facility] Payment Agreement was scanned into [employer] and attached to record. gjb 23:47 Patient visited by Shira Calabrese RN. ko2 02 00:49 Patient visited by Caitlin Gilliam PCA. mary ann 01:13 Patient visited by Shira Calabrese RN. ko2 02:09 Patient visited by Shira Calabrese RN. ko2 02:57 The patient / caregiver is instructed regarding the plan of care and ED course. ko2 03:04 Patient visited by Shira Calabrese RN. ko2 03:43 Patient visited by Shira Calabrese RN. ko2 04:08 Khadijah Thomas is Referral Physician. cs11 04:08 Abelardo Kohler DO is Attending Physician. cs11 04:13 Patient visited by Caitlin Gilliam PCA. mary ann 04:25 Discontinued lock intact, bleeding controlled, pressure dressing applied, No ko2 redness/swelling at site. No procedures done that require assistance. 12:01 T-Sheet-- Draft Copy was scanned into [employer] and attached to record. gb Administered Medications: 11/20 21:52 Drug: NS 0.9% 1000 ml [sodium chloride 0.9 % intravenous solution] Route: IV; Rate: ko2 bolus; Site: left antecubital; 23:34 Follow up: IV Status: Completed infusion; IV Intake: 1000ml ko2 21:52 Drug: Solu-MEDROL 125 mg [Solu-Medrol 500 mg intravenous solution (125 mg)] Route: IVP; ko2 Site: left antecubital; 21:57 Drug: Ondansetron 4 mg [ondansetron HCl 2 mg/mL intravenous solution (2 mL)] Route: ko2 IVP; Site: left antecubital; 21:57 Drug: hydrOXYzine 25 mg [hydroxyzine HCl 25 mg tablet (1 tabs)] Route: PO; ko2 23:34 Drug: NS 0.9% 1000 ml [sodium chloride 0.9 % intravenous solution] Route: IV; Rate: 100 ko2 mL/hr; Site: left antecubital; 11/21 00:06 Drug: NS 0.9% 1000 ml [sodium chloride 0.9 % intravenous solution] Route: IV; Rate: 250 ko2 mL/hr; Site: left antecubital; 03:43 Follow up: IV Status: Completed infusion; IV Intake: 1000ml ko2 00:07 Drug: Piperacillin-Tazobactam 3.375 grams [piperacillin-tazobactam 3.375 gram ko2 intravenous solution] Route: IVPB; Infused Over: 30 mins; Site: left antecubital; 00:49 Follow up: IV Status: Completed infusion; IV Intake: 50ml ko2 Intake: 11/20 23:34 IV: 1000.00ml; Total: 1000.00ml. ko2 11/21 00:49 IV: 50.00ml; Total: 1050.00ml. ko2 03:43 IV: 1000.00ml; Total: 2050.00ml. ko2 Order Results: Lab Order: Basic Metabolic Profile; SPEC'M 11/20/16 21:39 Test: GLUCOSE, FASTING; Value: 101; Range: 80-110; Units: MG/DL; Status: F Test: BLOOD UREA NITROGEN; Value: 25; Range: 7-18; Abnormal: Above high normal; Units: MG/DL; Status: F Test: CREATININE FOR GFR; Value: 1.21; Range: 0.55-1.02; Abnormal: Above high normal; Units: MG/DL; Status: F Test: GLOMERULAR FILTRATION RATE; Value: 48.2; Range: >45; Status: F Test: SODIUM LEVEL; Value: 143; Range: 136-145; Units: MEQ/L; Status: F Test: POTASSIUM SERUM; Value: 5.6; Range: 3.5-5.1; Abnormal: Above high normal; Units: MEQ/L; Status: F Test: CHLORIDE LEVEL; Value: 108; Range: 98-107; Abnormal: Above high normal; Units: MEQ/L; Status: F Test: CARBON DIOXIDE LEVEL; Value: 29; Range: 21-32; Units: MEQ/L; Status: F Test: ANION GAP; Value: 6; Range: 8-16; Abnormal: Below low normal; Units: MEQ/L; Status: F Test: CALCIUM LEVEL; Value: 8.4; Range: 8.8-10.2; Abnormal: Below low normal; Units: MG/DL; Status: F Test Note: ; Units are mL/min/1.73 m2 Chronic Kidney Disease Staging per NKF: Stage I & II GFR >=60 Normal to Mildly Decreased Stage III GFR 30-59 Moderately Decreased Stage IV GFR 15-29 Severely Decreased Stage V GFR <15 Very Little GFR Left ESRD GFR <15 on PURCHASING MANAGER Lab Order: CBC with Diff; ALAN'David 11/20/16 21:39 Test: WHITE BLOOD COUNT; Value: 11.3; Range: 4.0-10.0; Abnormal: Above high normal; Units: K/mm3; Status: F Test: RED BLOOD COUNT; Value: 3.40; Range: 4.00-5.40; Abnormal: Below low normal; Units: M/mm3; Status: F Test: HEMOGLOBIN; Value: 10.5; Range: 12.0-16.0; Abnormal: Below low normal; Units: g/dl; Status: F Test: HEMATOCRIT; Value: 32.9; Range: 36.0-47.0; Abnormal: Below low normal; Units: %; Status: F Test: MEAN CORPUSCULAR VOLUME; Value: 96.7; Range: 80.0-96.0; Abnormal: Above high normal; Units: fl; Status: F Test: MEAN CORPUSCULAR HEMOGLOBIN; Value: 30.8; Range: 27.0-33.0; Units: pg; Status: F Test: MEAN CORPUSCULAR HGB CONC; Value: 31.9; Range: 32.0-36.5; Abnormal: Below low normal; Units: g/dl; Status: F Test: RED CELL DISTRIBUTION WIDTH; Value: 13.7; Range: 11.5-14.5; Units: %; Status: F Test: PLATELET COUNT, AUTOMATED; Value: 378; Range: 150-450; Units: k/mm3; Status: F Test: NEUTROPHILS %; Value: 72.3; Range: 36.0-66.0; Abnormal: Above high normal; Units: %; Status: F Test: LYMPH %; Value: 14.9; Range: 24.0-44.0; Abnormal: Below low normal; Units: %; Status: F Test: MONO %; Value: 8.4; Range: 0.0-5.0; Abnormal: Above high normal; Units: %; Status: F Test: EOS %; Value: 2.2; Range: 0.0-3.0; Units: %; Status: F Test: BASO %; Value: 0.6; Range: 0.0-1.0; Units: %; Status: F Test: LARGE UNSTAINED CELL %; Value: 1.6; Range: 0.0-4.0; Units: %; Status: F Test: NEUTROPHILS #; Value: 8.2; Range: 1.8-7.7; Abnormal: Above high normal; Units: K/mm3; Status: F Test: LYMPH #; Value: 1.9; Range: 1.5-4.5; Units: K/mm3; Status: F Test: MONO #; Value: 1.0; Range: 0.0-0.8; Abnormal: Above high normal; Units: K/mm3; Status: F Test: EOS #; Value: 0.2; Range: 0.0-0.50; Units: K/mm3; Status: F Test: BASO #; Value: 0.1; Range: 0.0-0.2; Units: K/mm3; Status: F Test: LARGE UNSTAINED CELL #; Value: 0.2; Range: 0.0-0.4; Units: K/mm3; Status: F Lab Order: Lipase; SPEC' 11/20/16 21:39 Test: LIPASE; Value: 105; Range: 73-393; Units: U/L; Status: F Lab Order: Liver Profile; SPEC' 11/20/16 21:39 Test: AST/SGOT; Value: 10; Range: 15-37; Abnormal: Below low normal; Units: U/L; Status: F Test: ALT/SGPT; Value: 18; Range: 12-78; Units: U/L; Status: F Test: ALKALINE PHOSPHATASE; Value: 89; Range: 45-117; Units: U/L; Status: F Test: BILIRUBIN,TOTAL; Value: 0.2; Range: 0.2-1.0; Units: MG/DL; Status: F Test: BILIRUBIN,DIRECT; Value: < 0.1; Range: 0.0-0.2; Units: MG/DL; Status: F Test: TOTAL PROTEIN; Value: 5.9; Range: 6.4-8.2; Abnormal: Below low normal; Units: GM/DL; Status: F Test: ALBUMIN; Value: 2.8; Range: 3.2-5.2; Abnormal: Below low normal; Units: GM/DL; Status: F Test: ALBUMIN/GLOBULIN RATIO; Value: 0.90; Range: 1.00-1.93; Abnormal: Below low normal; Status: F Lab Order: URINALYSIS MANUAL; SPEC'M 11/20/16 21:39 Test: APPEARANCE, URINE MANUAL; Value: CLOUDY; Range: CLEAR; Abnormal: Above high normal; Status: F Test: COLOR, URINE MANUAL; Value: YELLOW; Range: YELLOW; Status: F Test: PH,URINE MAN; Value: 5.0; Range: 5.0 - 9.0; Units: UNITS; Status: F Test: SPECIFIC GRAVITY,URINE MANUAL; Value: 1.020; Range: 1.002-1.035; Status: F Test: PROTEIN, URINE MANUAL; Value: NEGATIVE; Range: NEGATIVE; Units: mg/dL; Status: F Test: GLUCOSE, URINE (UA) MANUAL; Value: NEGATIVE; Range: NEGATIVE; Units: mg/dL; Status: F Test: KETONE, URINE MANUAL; Value: NEGATIVE; Range: NEGATIVE; Units: mg/dL; Status: F Test: UROBILINOGEN, URINE MANUAL; Value: NORMAL; Range: NORMAL; Units: mg/dl; Status: F Test: BILIRUBIN, URINE MANUAL; Value: NEGATIVE; Range: NEGATIVE; Status: F Test: NITRITE, URINE MANUAL; Value: NEGATIVE; Range: NEGATIVE; Status: F Test: LEUKOCYTE ESTERASE, URINE MAN; Value: POSITIVE; Range: NEGATIVE; Abnormal: Above high normal; Status: F Test: BLOOD URINE MANUAL; Value: POSITIVE; Range: NEGATIVE; Abnormal: Above high normal; Status: F Lab Order: MICROSCOPIC, URINE; SPEC'M 11/20/16 21:39 Test: WBC, URINE; Value: TNTC; Range: 0-3; Abnormal: Above high normal; Units: /hpf; Status: F Test: RBC, URINE; Value: 20-30; Range: 0-3; Abnormal: Above high normal; Units: /hpf; Status: F Test: SQUAMOUS EPITHELIAL CELL URINE; Value: NONE SEEN; Range: SMALL AMT; Units: /hpf; Status: F Test: BACTERIA, URINE; Value: MOD AMOUNT; Range: NONE; Abnormal: Above high normal; Status: F Test: HYALINE CAST, URINE; Value: NONE SEEN; Range: 0-1; Units: /lpf; Status: F Test: MICROSCOPIC EXAM; Value: PERFORMED; Status: F Lab Order: -Blood Culture; SPEC'M 11/20/16 22:49 Test: BLOOD CULTURE; Value: No growth after 24 hours . All specimens observed; Status: F Test: BLOOD CULTURE; Value: for 5 days. Results final at that time.; Status: F Test: BLOOD CULTURE; Value: No Growth after 48 hours. All Specimens observed; Status: F Test: BLOOD CULTURE; Value: for 7 days. Results final at that time.; Status: F Lab Order: Urine Culture; SPEC'M 11/20/16 21:39 Test: URINE CULTURE; Value: <EXTERNAL COMMENT eCWMed> FULL REPORT IN LAB NOTES (eCW and Medent).; Status: F Test: URINE CULTURE; Value: ORGANISM 1: YEAST LIKE ORGANISM; Status: F Test: URINE CULTURE; Value: YEAST LIKE ORGANISM; Status: F Test: URINE CULTURE; Value: COLONY COUNT CFU/ml 100,000; Status: F Lab Order: BLOOD CULTURES; SPEC'M 11/20/16 23:17 Test: BLOOD CULTURE; Value: No growth after 24 hours . All specimens observed; Status: F Test: BLOOD CULTURE; Value: for 5 days. Results final at that time.; Status: F Test: BLOOD CULTURE; Value: No Growth after 48 hours. All Specimens observed; Status: F Test: BLOOD CULTURE; Value: for 7 days. Results final at that time.; Status: F Outcome: 04:08 Discharge ordered by Provider. cs11 04:25 Discharge Assessment: Patient awake, alert and oriented x 3. No cognitive and/or ko2 functional deficits noted. Patient verbalized understanding of disposition instructions. patient administered narcotics - no. The following High Risk Discharge criteria are identified: None. Discharged to home ambulatory, with significant other. Condition: good. No special radiology studies were completed. Property sent home with patient. 04:26 Patient left the ED. ko2 12:51 [facility] pharmacist called stating that they did not carry cefpodoxime and the pt is [facility] unable to afford RX anyway, could it be changed. Dr Swanson reviewed the chart and changed the antibiotic to Keflex 500 mg QID x 10 days.:. Addendum: 11/23/2016 11:07 Narrative: Urine culture results reviewed with Dr. Richards and Rx written for Flagyl 500 kcs mg BID x 10 days and patient is to f/u with PCP. Message left for patient to call us with her pharmacy of choice. 15:26 Narrative: patient called back and requests [facility] in [place] - Rx called in. iker Signatures: Digna Naik RN RN Lainey Recinos RN RN kpj Peters, Mary RN RN mcp Olaf, Kamilla, Reg Reg gb Sammy, Nicol, HOTEL ADMINISTRATIVE ASSISTANT HOTEL ADMINISTRATIVE ASSISTANT le Tawana, Caitlin, BID MANAGER BID MANAGER mary ann Abelardo Kohler, DO DO cs11 Lamonte Roque gr2 Shira Calabrese RN RN ko2 Ivana Elliott b Jaquelin Stanley, BID MANAGER BID MANAGER cln Corrections: (The following items were deleted from the chart) 11/20 21:56 21:41 URINALYSIS+LAB sent. koPonce EDMS MTDD
--- NOTE | 2016-11-23 15:27 | EDDOCDS ---
Physician Documentation [facility] Name: Allison Weiss Age: 61 yrs Sex: Female : 1955 Arrival Date: 11/20/2016 Time: 20:50 Bed 17 Private MD: Khadijah Thomas Abdul Disposition: 11/21/16 04:08 Discharged to Home/Self Care. Impression: Urinary tract infection, site not specified - pyelonephritis, Vomiting, Urticaria. - Condition is Stable. - Discharge Instructions: Hives, Pyelonephritis, Adult, Nausea and Vomiting. - Prescriptions for cefpodoxime 200 mg Oral tablet - take 1 tablet by ORAL route every 12 hours for 14 days with food; 28 tablet. hydroxyzine HCl 25 mg Oral tablet - take 1 tablet by ORAL route 4 times per day as needed for hives/itching; 20 tablet. Medrol (Dylan) 4 mg Oral Tablets, Dose Pack - take 1 Pack by ORAL route as directed - follow package instructions; 1 packet. ZOFRAN ODT 4 mg - dissolve 1 tablet by ORAL route 4 times per day As needed do not chew, do not swallow whole; 10 tablet. - Medication Reconciliation, Local Pharmacy Hours form. - Follow up: Khadijah Thomas; When: Keep your scheduled appointment on Tuesday; Reason: Recheck today's complaints, Continuance of care. - Problem is an ongoing problem. - Symptoms have improved. - Notes: Keep hydrated Return to the ED for worsening symptoms, especially fever, dizziness, persistent vomiting, shortness of breath or worsening rash otherwise, keep your scheduled appointment, with your PCP on Tuesday Historical: - Allergies: no known allergies; - Home Meds: 1. Carafate 1 gram Oral tab three times a day 2. Cipro 500 mg Oral tab 1 tab every 12 hours 3. furosemide 40 mg Oral tab once daily 4. metformin 500 mg Oral tab 2 tabs 2 times per day 5. Oxygen 1.5 liters at night as needed 6. potassium chloride 20 mEq Oral TbER once daily 7. prednisone 5 mg Oral TbEC three times a day 8. hydrocodone-acetaminophen 5-325 mg Oral tab every 8 hours as needed 9. Xanax 1 mg Oral tab four times a day 10. lisinopril 10 mg Oral tab 1 tab once daily - PMHx: CHF; COPD; Diabetes - NIDDM: controlled; - PSHx: cyst removed leg; - Social history: Smoking status: Patient states former smoker of tobacco. No barriers to communication noted, The patient speaks fluent Moroccan. - Family history: Not pertinent. - : The pt / caregiver states he / she is not on anticoagulants. Home medication list is obtained from the patient. - Exposure Risk Screening:: None identified. Vital Signs: 11/20 20:53 BP 93 / 70; Pulse 115; Resp 18 S; Temp 98.7(O); Pulse Ox 97% on R/A; Weight 84.37 kg / gr2 186 lbs (R); Height 5 ft. 5 in. (165.10 cm) (R); Pain 2/10; 22:24 Pulse 96 MON; Pulse Ox 97% ; ko2 22:25 BP 86 / 49 (auto/); ko2 22:39 Pulse 94 MON; Pulse Ox 98% ; ko2 22:40 BP 88 / 54 (auto/); ko2 22:54 Pulse 94 MON; Pulse Ox 95% ; ko2 22:55 BP 90 / 54 (auto/); ko2 23:09 Pulse 94 MON; Pulse Ox 95% ; ko2 23:10 BP 97 / 50 (auto/); ko2 23:25 BP 75 / 36 (auto/); ko2 23:25 Pulse 90 MON; Pulse Ox 94% ; ko2 23:36 BP 109 / 53 (auto/); ko2 23:36 Pulse 92 MON; Pulse Ox 94% ; ko2 23:39 Pulse 92 MON; Pulse Ox 94% ; ko2 23:40 BP 104 / 55 (auto/); ko2 23:54 Pulse 90 MON; Pulse Ox 95% ; ko2 23:55 BP 104 / 55 (auto/); ko2 02/05 00:10 BP 100 / 50 (auto/); ko2 00:10 Pulse 90 MON; Pulse Ox 95% ; ko2 00:25 BP 103 / 52 (auto/); ko2 00:25 Pulse 88 MON; Pulse Ox 94% ; ko2 02:09 Pulse Ox 93% ; ko2 02:10 BP 93 / 54 (auto/); ko2 04:12 BP 111 / 61; Pulse 82; Resp 20; Temp 96.9(TE); Pulse Ox 95% on 2 lpm NC; Pain 0/10; mary ann 11/20 20:53 Body Mass Index 30.95 (84.37 kg, 165.10 cm) gr2 MDM: 11/20 21:19 NS 0.9% 1000 ml IV at bolus once ordered. le 21:19 NS 0.9% 1000 ml IV at 100 mL/hr continuous ordered. le 21:19 Ondansetron 4 mg IVP once ordered. le 21:19 IV Saline Lock ordered. le 21:19 Undress patient appropriately for examination ordered. le 21:19 Solu-MEDROL 125 mg IVP once ordered. le 21:19 hydrOXYzine 25 mg PO once ordered. le 21:19 Basic Metabolic Profile Ordered. EDMS 21:19 CBC with Diff Ordered. EDMS 21:19 Lipase Ordered. EDMS 21:19 Liver Profile Ordered. EDMS 21:20 NOTHING BY MOUTH+DIET ordered. EDMS 21:56 URINALYSIS MANUAL Ordered. EDMS 21:57 CBC with Diff Reviewed. le 22:00 MICROSCOPIC, URINE Ordered. EDMS 22:22 Basic Metabolic Profile Reviewed. le 22:22 Liver Profile Reviewed. le 22:22 URINALYSIS MANUAL Reviewed. le 22:22 MICROSCOPIC, URINE Reviewed. le 22:22 Lipase Reviewed. le 22:25 -Blood Culture (Adults Only), peripheral from different site, or from device/port/PICC le etc. if present ordered. 22:25 -Blood Culture Ordered. EDMS 22:26 Urine Culture Ordered. EDMS 22:28 Piperacillin-Tazobactam 3.375 grams IVPB once over 30 mins; dilute in 50mL of NS or D5W le ordered. 22:29 -Blood Culture (Adults Only), peripheral from different site, or from device/port/PICC ml3 etc. if present complete. 22:30 BLOOD CULTURES Ordered. EDMS 22:58 Financial registration complete. gjb 23:37 [facility] Payment Agreement was scanned into eOriginal and attached to record. gjb 23:53 NS 0.9% 1000 ml IV at 250 mL/hr continuous; piggyback with abx ordered. le 11/21 12:01 T-Sheet-- Draft Copy was scanned into [employer]Original and attached to record. gb Administered Medications: 11/20 21:52 Drug: NS 0.9% 1000 ml [sodium chloride 0.9 % intravenous solution] Route: IV; Rate: ko2 bolus; Site: left antecubital; 23:34 Follow up: IV Status: Completed infusion; IV Intake: 1000ml ko2 21:52 Drug: Solu-MEDROL 125 mg [Solu-Medrol 500 mg intravenous solution (125 mg)] Route: IVP; ko2 Site: left antecubital; 21:57 Drug: Ondansetron 4 mg [ondansetron HCl 2 mg/mL intravenous solution (2 mL)] Route: ko2 IVP; Site: left antecubital; 21:57 Drug: hydrOXYzine 25 mg [hydroxyzine HCl 25 mg tablet (1 tabs)] Route: PO; ko2 23:34 Drug: NS 0.9% 1000 ml [sodium chloride 0.9 % intravenous solution] Route: IV; Rate: 100 ko2 mL/hr; Site: left antecubital; 11/21 00:06 Drug: NS 0.9% 1000 ml [sodium chloride 0.9 % intravenous solution] Route: IV; Rate: 250 ko2 mL/hr; Site: left antecubital; 03:43 Follow up: IV Status: Completed infusion; IV Intake: 1000ml ko2 00:07 Drug: Piperacillin-Tazobactam 3.375 grams [piperacillin-tazobactam 3.375 gram ko2 intravenous solution] Route: IVPB; Infused Over: 30 mins; Site: left antecubital; 00:49 Follow up: IV Status: Completed infusion; IV Intake: 50ml ko2 Signatures: Dispatcher [employer] Zoraida Guevara RN RN mcp Barnhardt, Gloria, Reg Reg Shirley Gomez, Brush And Broom Clipper Unit ml3 Nicol Christianson, RETAIL GIFT CARD MERCHANDISING RETAIL GIFT CARD MERCHANDISING Abelardo Bosch DO DO cs11 Shira Calabrese RN RN ko2 Ivana Elliott The chart was reviewed and I authenticate all verbal orders and agree with the evaluation and treatment provided.Corrections: (The following items were deleted from the chart) 11/20 21:56 21:19 URINALYSIS+LAB ordered. [facility] EDOH Attachments: 23:37 [facility] Payment Agreement kevon 11/21 12:01 T-Sheet-- Draft Copy gb MTDD
--- NOTE | 2016-11-23 15:28 | EDDOCDS ---
Physician Documentation [facility] Name: Allison Weiss Age: 61 yrs Sex: Female : 1955 Arrival Date: 11/20/2016 Time: 20:50 Bed 17 Private MD: Khadijah Thomas Abdul Disposition: 11/21/16 04:08 Discharged to Home/Self Care. Impression: Urinary tract infection, site not specified - pyelonephritis, Vomiting, Urticaria. - Condition is Stable. - Discharge Instructions: Hives, Pyelonephritis, Adult, Nausea and Vomiting. - Prescriptions for cefpodoxime 200 mg Oral tablet - take 1 tablet by ORAL route every 12 hours for 14 days with food; 28 tablet. hydroxyzine HCl 25 mg Oral tablet - take 1 tablet by ORAL route 4 times per day as needed for hives/itching; 20 tablet. Medrol (Dylan) 4 mg Oral Tablets, Dose Pack - take 1 Pack by ORAL route as directed - follow package instructions; 1 packet. ZOFRAN ODT 4 mg - dissolve 1 tablet by ORAL route 4 times per day As needed do not chew, do not swallow whole; 10 tablet. - Medication Reconciliation, Local Pharmacy Hours form. - Follow up: Khadijah Thomas; When: Keep your scheduled appointment on Tuesday; Reason: Recheck today's complaints, Continuance of care. - Problem is an ongoing problem. - Symptoms have improved. - Notes: Keep hydrated Return to the ED for worsening symptoms, especially fever, dizziness, persistent vomiting, shortness of breath or worsening rash otherwise, keep your scheduled appointment, with your PCP on Tuesday Historical: - Allergies: no known allergies; - Home Meds: 1. Carafate 1 gram Oral tab three times a day 2. Cipro 500 mg Oral tab 1 tab every 12 hours 3. furosemide 40 mg Oral tab once daily 4. metformin 500 mg Oral tab 2 tabs 2 times per day 5. Oxygen 1.5 liters at night as needed 6. potassium chloride 20 mEq Oral TbER once daily 7. prednisone 5 mg Oral TbEC three times a day 8. hydrocodone-acetaminophen 5-325 mg Oral tab every 8 hours as needed 9. Xanax 1 mg Oral tab four times a day 10. lisinopril 10 mg Oral tab 1 tab once daily - PMHx: CHF; COPD; Diabetes - NIDDM: controlled; - PSHx: cyst removed leg; - Social history: Smoking status: Patient states former smoker of tobacco. No barriers to communication noted, The patient speaks fluent Cymraes. - Family history: Not pertinent. - : The pt / caregiver states he / she is not on anticoagulants. Home medication list is obtained from the patient. - Exposure Risk Screening:: None identified. Vital Signs: 11/20 20:53 BP 93 / 70; Pulse 115; Resp 18 S; Temp 98.7(O); Pulse Ox 97% on R/A; Weight 84.37 kg / gr2 186 lbs (R); Height 5 ft. 5 in. (165.10 cm) (R); Pain 2/10; 22:24 Pulse 96 MON; Pulse Ox 97% ; ko2 22:25 BP 86 / 49 (auto/); ko2 22:39 Pulse 94 MON; Pulse Ox 98% ; ko2 22:40 BP 88 / 54 (auto/); ko2 22:54 Pulse 94 MON; Pulse Ox 95% ; ko2 22:55 BP 90 / 54 (auto/); ko2 23:09 Pulse 94 MON; Pulse Ox 95% ; ko2 23:10 BP 97 / 50 (auto/); ko2 23:25 BP 75 / 36 (auto/); ko2 23:25 Pulse 90 MON; Pulse Ox 94% ; ko2 23:36 BP 109 / 53 (auto/); ko2 23:36 Pulse 92 MON; Pulse Ox 94% ; ko2 23:39 Pulse 92 MON; Pulse Ox 94% ; ko2 23:40 BP 104 / 55 (auto/); ko2 23:54 Pulse 90 MON; Pulse Ox 95% ; ko2 23:55 BP 104 / 55 (auto/); ko2 02/05 00:10 BP 100 / 50 (auto/); ko2 00:10 Pulse 90 MON; Pulse Ox 95% ; ko2 00:25 BP 103 / 52 (auto/); ko2 00:25 Pulse 88 MON; Pulse Ox 94% ; ko2 02:09 Pulse Ox 93% ; ko2 02:10 BP 93 / 54 (auto/); ko2 04:12 BP 111 / 61; Pulse 82; Resp 20; Temp 96.9(TE); Pulse Ox 95% on 2 lpm NC; Pain 0/10; mary ann 11/20 20:53 Body Mass Index 30.95 (84.37 kg, 165.10 cm) gr2 MDM: 11/20 21:19 NS 0.9% 1000 ml IV at bolus once ordered. le 21:19 NS 0.9% 1000 ml IV at 100 mL/hr continuous ordered. le 21:19 Ondansetron 4 mg IVP once ordered. le 21:19 IV Saline Lock ordered. le 21:19 Undress patient appropriately for examination ordered. le 21:19 Solu-MEDROL 125 mg IVP once ordered. le 21:19 hydrOXYzine 25 mg PO once ordered. le 21:19 Basic Metabolic Profile Ordered. EDMS 21:19 CBC with Diff Ordered. EDMS 21:19 Lipase Ordered. EDMS 21:19 Liver Profile Ordered. EDMS 21:20 NOTHING BY MOUTH+DIET ordered. EDMS 21:56 URINALYSIS MANUAL Ordered. EDMS 21:57 CBC with Diff Reviewed. le 22:00 MICROSCOPIC, URINE Ordered. EDMS 22:22 Basic Metabolic Profile Reviewed. le 22:22 Liver Profile Reviewed. le 22:22 URINALYSIS MANUAL Reviewed. le 22:22 MICROSCOPIC, URINE Reviewed. le 22:22 Lipase Reviewed. le 22:25 -Blood Culture (Adults Only), peripheral from different site, or from device/port/PICC le etc. if present ordered. 22:25 -Blood Culture Ordered. EDMS 22:26 Urine Culture Ordered. EDMS 22:28 Piperacillin-Tazobactam 3.375 grams IVPB once over 30 mins; dilute in 50mL of NS or D5W le ordered. 22:29 -Blood Culture (Adults Only), peripheral from different site, or from device/port/PICC ml3 etc. if present complete. 22:30 BLOOD CULTURES Ordered. EDMS 22:58 Financial registration complete. gjb 23:37 [facility] Payment Agreement was scanned into [employer] and attached to record. gjb 23:53 NS 0.9% 1000 ml IV at 250 mL/hr continuous; piggyback with abx ordered. le 11/21 12:01 T-Sheet-- Draft Copy was scanned into [employer] and attached to record. gb Administered Medications: 11/20 21:52 Drug: NS 0.9% 1000 ml [sodium chloride 0.9 % intravenous solution] Route: IV; Rate: ko2 bolus; Site: left antecubital; 23:34 Follow up: IV Status: Completed infusion; IV Intake: 1000ml ko2 21:52 Drug: Solu-MEDROL 125 mg [Solu-Medrol 500 mg intravenous solution (125 mg)] Route: IVP; ko2 Site: left antecubital; 21:57 Drug: Ondansetron 4 mg [ondansetron HCl 2 mg/mL intravenous solution (2 mL)] Route: ko2 IVP; Site: left antecubital; 21:57 Drug: hydrOXYzine 25 mg [hydroxyzine HCl 25 mg tablet (1 tabs)] Route: PO; ko2 23:34 Drug: NS 0.9% 1000 ml [sodium chloride 0.9 % intravenous solution] Route: IV; Rate: 100 ko2 mL/hr; Site: left antecubital; 11/21 00:06 Drug: NS 0.9% 1000 ml [sodium chloride 0.9 % intravenous solution] Route: IV; Rate: 250 ko2 mL/hr; Site: left antecubital; 03:43 Follow up: IV Status: Completed infusion; IV Intake: 1000ml ko2 00:07 Drug: Piperacillin-Tazobactam 3.375 grams [piperacillin-tazobactam 3.375 gram ko2 intravenous solution] Route: IVPB; Infused Over: 30 mins; Site: left antecubital; 00:49 Follow up: IV Status: Completed infusion; IV Intake: 50ml ko2 Signatures: Dispatcher [employer] Zoraida Guevara RN RN mcp Barnhardt, Gloria, Reg Reg Shirley Gomez, Covering And Lining Supervisor Unit ml3 Nicol Christianson, TAILINGS DAM LABORER TAILINGS DAM LABORER Abelardo Bosch DO DO cs11 Shira Calabrese RN RN ko2 Ivana Elliott The chart was reviewed and I authenticate all verbal orders and agree with the evaluation and treatment provided.Corrections: (The following items were deleted from the chart) 11/20 21:56 21:19 URINALYSIS+LAB ordered. [facility] EDMT Attachments: 23:37 [facility] Payment Agreement kevon 11/21 12:01 T-Sheet-- Draft Copy gb Chart Complete MTDD
--- NOTE | 2016-11-23 15:28 | EDDOCDS ---
Physician Documentation [facility] Name: Allison Weiss Age: 61 yrs Sex: Female : 1955 Arrival Date: 11/20/2016 Time: 20:50 Bed 17 Private MD: Khadijah Thomas Abdul Disposition: 11/21/16 04:08 Discharged to Home/Self Care. Impression: Urinary tract infection, site not specified - pyelonephritis, Vomiting, Urticaria. - Condition is Stable. - Discharge Instructions: Hives, Pyelonephritis, Adult, Nausea and Vomiting. - Prescriptions for cefpodoxime 200 mg Oral tablet - take 1 tablet by ORAL route every 12 hours for 14 days with food; 28 tablet. hydroxyzine HCl 25 mg Oral tablet - take 1 tablet by ORAL route 4 times per day as needed for hives/itching; 20 tablet. Medrol (Dylan) 4 mg Oral Tablets, Dose Pack - take 1 Pack by ORAL route as directed - follow package instructions; 1 packet. ZOFRAN ODT 4 mg - dissolve 1 tablet by ORAL route 4 times per day As needed do not chew, do not swallow whole; 10 tablet. - Medication Reconciliation, Local Pharmacy Hours form. - Follow up: Khadijah Thomas; When: Keep your scheduled appointment on Tuesday; Reason: Recheck today's complaints, Continuance of care. - Problem is an ongoing problem. - Symptoms have improved. - Notes: Keep hydrated Return to the ED for worsening symptoms, especially fever, dizziness, persistent vomiting, shortness of breath or worsening rash otherwise, keep your scheduled appointment, with your PCP on Tuesday Historical: - Allergies: no known allergies; - Home Meds: 1. Carafate 1 gram Oral tab three times a day 2. Cipro 500 mg Oral tab 1 tab every 12 hours 3. furosemide 40 mg Oral tab once daily 4. metformin 500 mg Oral tab 2 tabs 2 times per day 5. Oxygen 1.5 liters at night as needed 6. potassium chloride 20 mEq Oral TbER once daily 7. prednisone 5 mg Oral TbEC three times a day 8. hydrocodone-acetaminophen 5-325 mg Oral tab every 8 hours as needed 9. Xanax 1 mg Oral tab four times a day 10. lisinopril 10 mg Oral tab 1 tab once daily - PMHx: CHF; COPD; Diabetes - NIDDM: controlled; - PSHx: cyst removed leg; - Social history: Smoking status: Patient states former smoker of tobacco. No barriers to communication noted, The patient speaks fluent Luxembourger. - Family history: Not pertinent. - : The pt / caregiver states he / she is not on anticoagulants. Home medication list is obtained from the patient. - Exposure Risk Screening:: None identified. Vital Signs: 11/20 20:53 BP 93 / 70; Pulse 115; Resp 18 S; Temp 98.7(O); Pulse Ox 97% on R/A; Weight 84.37 kg / gr2 186 lbs (R); Height 5 ft. 5 in. (165.10 cm) (R); Pain 2/10; 22:24 Pulse 96 MON; Pulse Ox 97% ; ko2 22:25 BP 86 / 49 (auto/); ko2 22:39 Pulse 94 MON; Pulse Ox 98% ; ko2 22:40 BP 88 / 54 (auto/); ko2 22:54 Pulse 94 MON; Pulse Ox 95% ; ko2 22:55 BP 90 / 54 (auto/); ko2 23:09 Pulse 94 MON; Pulse Ox 95% ; ko2 23:10 BP 97 / 50 (auto/); ko2 23:25 BP 75 / 36 (auto/); ko2 23:25 Pulse 90 MON; Pulse Ox 94% ; ko2 23:36 BP 109 / 53 (auto/); ko2 23:36 Pulse 92 MON; Pulse Ox 94% ; ko2 23:39 Pulse 92 MON; Pulse Ox 94% ; ko2 23:40 BP 104 / 55 (auto/); ko2 23:54 Pulse 90 MON; Pulse Ox 95% ; ko2 23:55 BP 104 / 55 (auto/); ko2 02/05 00:10 BP 100 / 50 (auto/); ko2 00:10 Pulse 90 MON; Pulse Ox 95% ; ko2 00:25 BP 103 / 52 (auto/); ko2 00:25 Pulse 88 MON; Pulse Ox 94% ; ko2 02:09 Pulse Ox 93% ; ko2 02:10 BP 93 / 54 (auto/); ko2 04:12 BP 111 / 61; Pulse 82; Resp 20; Temp 96.9(TE); Pulse Ox 95% on 2 lpm NC; Pain 0/10; mary ann 11/20 20:53 Body Mass Index 30.95 (84.37 kg, 165.10 cm) gr2 MDM: 11/20 21:19 NS 0.9% 1000 ml IV at bolus once ordered. le 21:19 NS 0.9% 1000 ml IV at 100 mL/hr continuous ordered. le 21:19 Ondansetron 4 mg IVP once ordered. le 21:19 IV Saline Lock ordered. le 21:19 Undress patient appropriately for examination ordered. le 21:19 Solu-MEDROL 125 mg IVP once ordered. le 21:19 hydrOXYzine 25 mg PO once ordered. le 21:19 Basic Metabolic Profile Ordered. EDMS 21:19 CBC with Diff Ordered. EDMS 21:19 Lipase Ordered. EDMS 21:19 Liver Profile Ordered. EDMS 21:20 NOTHING BY MOUTH+DIET ordered. EDMS 21:56 URINALYSIS MANUAL Ordered. EDMS 21:57 CBC with Diff Reviewed. le 22:00 MICROSCOPIC, URINE Ordered. EDMS 22:22 Basic Metabolic Profile Reviewed. le 22:22 Liver Profile Reviewed. le 22:22 URINALYSIS MANUAL Reviewed. le 22:22 MICROSCOPIC, URINE Reviewed. le 22:22 Lipase Reviewed. le 22:25 -Blood Culture (Adults Only), peripheral from different site, or from device/port/PICC le etc. if present ordered. 22:25 -Blood Culture Ordered. EDMS 22:26 Urine Culture Ordered. EDMS 22:28 Piperacillin-Tazobactam 3.375 grams IVPB once over 30 mins; dilute in 50mL of NS or D5W le ordered. 22:29 -Blood Culture (Adults Only), peripheral from different site, or from device/port/PICC ml3 etc. if present complete. 22:30 BLOOD CULTURES Ordered. EDMS 22:58 Financial registration complete. gjb 23:37 [facility] Payment Agreement was scanned into [employer] and attached to record. gjb 23:53 NS 0.9% 1000 ml IV at 250 mL/hr continuous; piggyback with abx ordered. le 11/21 12:01 T-Sheet-- Draft Copy was scanned into [employer] and attached to record. gb Administered Medications: 11/20 21:52 Drug: NS 0.9% 1000 ml [sodium chloride 0.9 % intravenous solution] Route: IV; Rate: ko2 bolus; Site: left antecubital; 23:34 Follow up: IV Status: Completed infusion; IV Intake: 1000ml ko2 21:52 Drug: Solu-MEDROL 125 mg [Solu-Medrol 500 mg intravenous solution (125 mg)] Route: IVP; ko2 Site: left antecubital; 21:57 Drug: Ondansetron 4 mg [ondansetron HCl 2 mg/mL intravenous solution (2 mL)] Route: ko2 IVP; Site: left antecubital; 21:57 Drug: hydrOXYzine 25 mg [hydroxyzine HCl 25 mg tablet (1 tabs)] Route: PO; ko2 23:34 Drug: NS 0.9% 1000 ml [sodium chloride 0.9 % intravenous solution] Route: IV; Rate: 100 ko2 mL/hr; Site: left antecubital; 11/21 00:06 Drug: NS 0.9% 1000 ml [sodium chloride 0.9 % intravenous solution] Route: IV; Rate: 250 ko2 mL/hr; Site: left antecubital; 03:43 Follow up: IV Status: Completed infusion; IV Intake: 1000ml ko2 00:07 Drug: Piperacillin-Tazobactam 3.375 grams [piperacillin-tazobactam 3.375 gram ko2 intravenous solution] Route: IVPB; Infused Over: 30 mins; Site: left antecubital; 00:49 Follow up: IV Status: Completed infusion; IV Intake: 50ml ko2 Signatures: Dispatcher [employer] Zoraida Guevara RN RN mcp Barnhardt, Gloria, Reg Reg Shirley Gomez, Art Framing Manager Unit ml3 Nicol Christianson, FORMING YARDAGE CONTROL OPERATOR FORMING YARDAGE CONTROL OPERATOR Abelardo Bosch DO DO cs11 Shira Calabrese RN RN ko2 Ivana Elliott The chart was reviewed and I authenticate all verbal orders and agree with the evaluation and treatment provided.Corrections: (The following items were deleted from the chart) 11/20 21:56 21:19 URINALYSIS+LAB ordered. [facility] EDMD Attachments: 23:37 [facility] Payment Agreement kevon 11/21 12:01 T-Sheet-- Draft Copy gb Chart Complete MTDD
--- NOTE | 2016-11-23 15:28 | EDDOCDS ---
Nurse's Notes [facility] Name: Allison Weiss Age: 61 yrs Sex: Female : 1955 Arrival Date: 11/20/2016 Time: 20:50 Bed 17 Private MD: Khadijah Thomas Abdul Diagnosis: Urinary tract infection, site not specified-pyelonephritis;Vomiting;Urticaria Presentation: 11/20 20:58 Presenting complaint: Patient states: Stomach ache, vomiting, chills, rash on abdomen mcp and back. Adult Sepsis Screening: The patient does not have new or worsening altered mentation. Patient's respiratory rate is less than 22. Systolic blood pressure is less than or equal to 100 (1 point). Patient has a qSOFA score of 1- Negative Sepsis Screen. Suicide/Homicide risk assessment- the patient denies having any suicidal and/or homicidal ideations and does not present with any other emotional, behavioral or mental health complaints. 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 Transition of care: patient was not received from another setting of care. 20:58 Acuity: MARTHA Level 3 [facility] 20:58 Method Of Arrival: Wheelchair [facility] Triage Assessment: 21:02 General: Appears uncomfortable, Behavior is cooperative. Pain: Location: abdomen Pain mcp currently is 10 out of 10 on a pain scale. HIV screening NA for this visit Offered previously. Neurological: No deficits noted. Respiratory: Airway is patent Respiratory effort is even, unlabored. GI: Reports lower abdominal pain. Derm: Skin is pink, warm & dry. Historical: - Allergies: no known allergies; - Home Meds: 1. Carafate 1 gram Oral tab three times a day 2. Cipro 500 mg Oral tab 1 tab every 12 hours 3. furosemide 40 mg Oral tab once daily 4. metformin 500 mg Oral tab 2 tabs 2 times per day 5. Oxygen 1.5 liters at night as needed 6. potassium chloride 20 mEq Oral TbER once daily 7. prednisone 5 mg Oral TbEC three times a day 8. hydrocodone-acetaminophen 5-325 mg Oral tab every 8 hours as needed 9. Xanax 1 mg Oral tab four times a day 10. lisinopril 10 mg Oral tab 1 tab once daily - PMHx: CHF; COPD; Diabetes - NIDDM: controlled; - PSHx: cyst removed leg; - Social history: Smoking status: Patient states former smoker of tobacco. No barriers to communication noted, The patient speaks fluent Nauruan. - Family history: Not pertinent. - : The pt / caregiver states he / she is not on anticoagulants. Home medication list is obtained from the patient. - Exposure Risk Screening:: None identified. Screenin:54 Infection Control. gr2 11/21 02:57 Screening information is obtained from the patient. Fall risk: No risks identified. ko2 Assistance ADL's: requires no assistance with activities of daily living. Abuse/DV Screen: The patient / caregiver reports he/she is: not in a situation that causes fear, pain or injury. Nutritional screening: No deficits noted. Advance Directives: Currently, there is no health care proxy. There is no active DNR order. There is no living will. There is no Power of Beamer Operator. home support is adequate. Assessment: 11/20 21:41 General: Appears in no apparent distress, Behavior is appropriate for age, cooperative. ko2 Pain: Location: abdomen. Neurological: Level of Consciousness is awake, alert. Respiratory: Airway is patent Respiratory effort is even, unlabored. GI: Bowel sounds present X 4 quads. Abd is soft X 4 quads. Derm: Rash noted that is itchy. Musculoskeletal: Range of motion intact in all extremities. 23:00 General: Appears in no apparent distress, Behavior is appropriate for age, cooperative. ko2 23:00 Pain: Location: abdomen. Neurological: Level of Consciousness is awake, alert. ko2 Respiratory: Airway is patent Respiratory effort is even, unlabored. GI: Abdomen is non- distended obese. Derm:. Musculoskeletal: Range of motion intact in all extremities. 11/21 00:07 General: Appears in no apparent distress, comfortable, pt currently appears to be ko2 asleep on the stretcher. Respirations unlabored at this time. Skin warm and dry. No concerns at this time. . 01:12 General: Appears in no apparent distress, comfortable, Behavior is appropriate for age, ko2 cooperative. Pain: Location: abdomen. Neurological: Level of Consciousness is awake, alert. Respiratory: Airway is patent Respiratory effort is even, unlabored. Derm: Skin is normal. 02:00 General: Appears in no apparent distress, comfortable, Behavior is appropriate for age, ko2 cooperative, Smells of. Neurological: Level of Consciousness is awake, alert. Respiratory: Airway is patent Respiratory effort is even, unlabored. Derm: Skin is normal. 03:04 General: Appears in no apparent distress, comfortable, Behavior is appropriate for age, ko2 cooperative. Neurological: Level of Consciousness is awake, alert. Respiratory: Airway is patent Respiratory effort is even, unlabored. Derm: Skin is normal. 04:25 General: Appears in no apparent distress, comfortable, Behavior is appropriate for age, ko2 cooperative. Neurological: Level of Consciousness is awake, alert. Respiratory: Airway is patent Respiratory effort is even, unlabored. Derm: Skin is normal. Vital Signs: 11/20 20:53 BP 93 / 70; Pulse 115; Resp 18 S; Temp 98.7(O); Pulse Ox 97% on R/A; Weight 84.37 kg gr2 (R); Height 5 ft. 5 in. (165.10 cm) (R); Pain 2/10; 22:24 Pulse 96 MON; Pulse Ox 97% ; ko2 22:25 BP 86 / 49 (auto/); ko2 22:39 Pulse 94 MON; Pulse Ox 98% ; ko2 22:40 BP 88 / 54 (auto/); ko2 22:54 Pulse 94 MON; Pulse Ox 95% ; ko2 22:55 BP 90 / 54 (auto/); ko2 23:09 Pulse 94 MON; Pulse Ox 95% ; ko2 23:10 BP 97 / 50 (auto/); ko2 23:25 BP 75 / 36 (auto/); ko2 23:25 Pulse 90 MON; Pulse Ox 94% ; ko2 23:36 BP 109 / 53 (auto/); ko2 23:36 Pulse 92 MON; Pulse Ox 94% ; ko2 23:39 Pulse 92 MON; Pulse Ox 94% ; ko2 23:40 BP 104 / 55 (auto/); ko2 23:54 Pulse 90 MON; Pulse Ox 95% ; ko2 23:55 BP 104 / 55 (auto/); ko2 11/21 00:10 BP 100 / 50 (auto/); ko2 00:10 Pulse 90 MON; Pulse Ox 95% ; ko2 00:25 BP 103 / 52 (auto/); ko2 00:25 Pulse 88 MON; Pulse Ox 94% ; ko2 02:09 Pulse Ox 93% ; ko2 02:10 BP 93 / 54 (auto/); ko2 04:12 BP 111 / 61; Pulse 82; Resp 20; Temp 96.9(TE); Pulse Ox 95% on 2 lpm NC; Pain 0/10; mary ann 11/20 20:53 Body Mass Index 30.95 (84.37 kg, 165.10 cm) gr2 Vitals: 11/20 20:53 Log In Time: November 20, 2016 at 20:53. gr2 ED Course: 20:52 Patient visited by Lamonte Roque. gr2 20:52 Patient moved to Waiting gr2 20:53 Khadijah Thomas is Private Physician. gr2 20:55 Patient visited by Lamonte Roque. gr2 20:55 Patient moved to Pre RCE gr2 20:59 Triage Initiated mcp 21:02 Patient visited by Zoraida Pedro RN. mcp 21:05 Shira Calabrese RN is Primary Nurse. mcp 21:05 Nicol Christianson FNP is PHCP. le 21:05 Patient moved to 17 mcp 21:09 Patient visited by Nicol Christianson FNP. le 21:09 Patient visited by Nicol Christianson FNP. le 21:12 Patient visited by Caitlin Gilliam PCA. mary ann 21:12 Pt greeted and oriented to ED. Patient advised of names of staff involved in care, mary ann location of call jensen, wait times and NPO status. Accompanied by Significant Other, Patient has correct armband on for positive identification. Placed in gown. Call light in reach. Side rails up X2. machine group leader on. Pulse ox on. NIBP on. 21:41 Basic Metabolic Profile Sent. ko2 21:41 CBC with Diff Sent. ko2 21:41 Lipase Sent. ko2 21:41 Liver Profile Sent. ko2 21:42 Inserted saline lock: 20 gauge in left antecubital area and blood collected. ko2 21:57 URINALYSIS MANUAL Sent. ko2 21:58 Patient visited by Shira Calabrese RN. ko2 22:50 Patient visited by Shira Calabrese,NICHELLE. ko2 23:19 BLOOD CULTURES Sent. cln 23:37 [facility] [facility] Payment Agreement was scanned into Aud[employer] and attached to record. gjb 23:47 Patient visited by Shira Calabrese RN. ko2 02 00:49 Patient visited by Caitlin Gilliam PCA. mary ann 01:13 Patient visited by Shira Calabrese RN. ko2 02:09 Patient visited by Shira Calabrese RN. ko2 02:57 The patient / caregiver is instructed regarding the plan of care and ED course. ko2 03:04 Patient visited by Shira Calabrese RN. ko2 03:43 Patient visited by Shira Calabrese RN. ko2 04:08 Kahdijah Thomas is Referral Physician. cs11 04:08 Abelardo Kohler DO is Attending Physician. cs11 04:13 Patient visited by Caitlin Gilliam PCA. mary ann 04:25 Discontinued lock intact, bleeding controlled, pressure dressing applied, No ko2 redness/swelling at site. No procedures done that require assistance. 12:01 T-Sheet-- Draft Copy was scanned into Aud[employer] and attached to record. gb Administered Medications: 11/20 21:52 Drug: NS 0.9% 1000 ml [sodium chloride 0.9 % intravenous solution] Route: IV; Rate: ko2 bolus; Site: left antecubital; 23:34 Follow up: IV Status: Completed infusion; IV Intake: 1000ml ko2 21:52 Drug: Solu-MEDROL 125 mg [Solu-Medrol 500 mg intravenous solution (125 mg)] Route: IVP; ko2 Site: left antecubital; 21:57 Drug: Ondansetron 4 mg [ondansetron HCl 2 mg/mL intravenous solution (2 mL)] Route: ko2 IVP; Site: left antecubital; 21:57 Drug: hydrOXYzine 25 mg [hydroxyzine HCl 25 mg tablet (1 tabs)] Route: PO; ko2 23:34 Drug: NS 0.9% 1000 ml [sodium chloride 0.9 % intravenous solution] Route: IV; Rate: 100 ko2 mL/hr; Site: left antecubital; 11/21 00:06 Drug: NS 0.9% 1000 ml [sodium chloride 0.9 % intravenous solution] Route: IV; Rate: 250 ko2 mL/hr; Site: left antecubital; 03:43 Follow up: IV Status: Completed infusion; IV Intake: 1000ml ko2 00:07 Drug: Piperacillin-Tazobactam 3.375 grams [piperacillin-tazobactam 3.375 gram ko2 intravenous solution] Route: IVPB; Infused Over: 30 mins; Site: left antecubital; 00:49 Follow up: IV Status: Completed infusion; IV Intake: 50ml ko2 Intake: 11/20 23:34 IV: 1000.00ml; Total: 1000.00ml. ko2 11/21 00:49 IV: 50.00ml; Total: 1050.00ml. ko2 03:43 IV: 1000.00ml; Total: 2050.00ml. ko2 Order Results: Lab Order: Basic Metabolic Profile; SPEC'M 11/20/16 21:39 Test: GLUCOSE, FASTING; Value: 101; Range: 80-110; Units: MG/DL; Status: F Test: BLOOD UREA NITROGEN; Value: 25; Range: 7-18; Abnormal: Above high normal; Units: MG/DL; Status: F Test: CREATININE FOR GFR; Value: 1.21; Range: 0.55-1.02; Abnormal: Above high normal; Units: MG/DL; Status: F Test: GLOMERULAR FILTRATION RATE; Value: 48.2; Range: >45; Status: F Test: SODIUM LEVEL; Value: 143; Range: 136-145; Units: MEQ/L; Status: F Test: POTASSIUM SERUM; Value: 5.6; Range: 3.5-5.1; Abnormal: Above high normal; Units: MEQ/L; Status: F Test: CHLORIDE LEVEL; Value: 108; Range: 98-107; Abnormal: Above high normal; Units: MEQ/L; Status: F Test: CARBON DIOXIDE LEVEL; Value: 29; Range: 21-32; Units: MEQ/L; Status: F Test: ANION GAP; Value: 6; Range: 8-16; Abnormal: Below low normal; Units: MEQ/L; Status: F Test: CALCIUM LEVEL; Value: 8.4; Range: 8.8-10.2; Abnormal: Below low normal; Units: MG/DL; Status: F Test Note: ; Units are mL/min/1.73 m2 Chronic Kidney Disease Staging per NKF: Stage I & II GFR >=60 Normal to Mildly Decreased Stage III GFR 30-59 Moderately Decreased Stage IV GFR 15-29 Severely Decreased Stage V GFR <15 Very Little GFR Left ESRD GFR <15 on WATCH MECHANIC Lab Order: CBC with Diff; ALAN'David 11/20/16 21:39 Test: WHITE BLOOD COUNT; Value: 11.3; Range: 4.0-10.0; Abnormal: Above high normal; Units: K/mm3; Status: F Test: RED BLOOD COUNT; Value: 3.40; Range: 4.00-5.40; Abnormal: Below low normal; Units: M/mm3; Status: F Test: HEMOGLOBIN; Value: 10.5; Range: 12.0-16.0; Abnormal: Below low normal; Units: g/dl; Status: F Test: HEMATOCRIT; Value: 32.9; Range: 36.0-47.0; Abnormal: Below low normal; Units: %; Status: F Test: MEAN CORPUSCULAR VOLUME; Value: 96.7; Range: 80.0-96.0; Abnormal: Above high normal; Units: fl; Status: F Test: MEAN CORPUSCULAR HEMOGLOBIN; Value: 30.8; Range: 27.0-33.0; Units: pg; Status: F Test: MEAN CORPUSCULAR HGB CONC; Value: 31.9; Range: 32.0-36.5; Abnormal: Below low normal; Units: g/dl; Status: F Test: RED CELL DISTRIBUTION WIDTH; Value: 13.7; Range: 11.5-14.5; Units: %; Status: F Test: PLATELET COUNT, AUTOMATED; Value: 378; Range: 150-450; Units: k/mm3; Status: F Test: NEUTROPHILS %; Value: 72.3; Range: 36.0-66.0; Abnormal: Above high normal; Units: %; Status: F Test: LYMPH %; Value: 14.9; Range: 24.0-44.0; Abnormal: Below low normal; Units: %; Status: F Test: MONO %; Value: 8.4; Range: 0.0-5.0; Abnormal: Above high normal; Units: %; Status: F Test: EOS %; Value: 2.2; Range: 0.0-3.0; Units: %; Status: F Test: BASO %; Value: 0.6; Range: 0.0-1.0; Units: %; Status: F Test: LARGE UNSTAINED CELL %; Value: 1.6; Range: 0.0-4.0; Units: %; Status: F Test: NEUTROPHILS #; Value: 8.2; Range: 1.8-7.7; Abnormal: Above high normal; Units: K/mm3; Status: F Test: LYMPH #; Value: 1.9; Range: 1.5-4.5; Units: K/mm3; Status: F Test: MONO #; Value: 1.0; Range: 0.0-0.8; Abnormal: Above high normal; Units: K/mm3; Status: F Test: EOS #; Value: 0.2; Range: 0.0-0.50; Units: K/mm3; Status: F Test: BASO #; Value: 0.1; Range: 0.0-0.2; Units: K/mm3; Status: F Test: LARGE UNSTAINED CELL #; Value: 0.2; Range: 0.0-0.4; Units: K/mm3; Status: F Lab Order: Lipase; SPEC' 11/20/16 21:39 Test: LIPASE; Value: 105; Range: 73-393; Units: U/L; Status: F Lab Order: Liver Profile; SPEC' 11/20/16 21:39 Test: AST/SGOT; Value: 10; Range: 15-37; Abnormal: Below low normal; Units: U/L; Status: F Test: ALT/SGPT; Value: 18; Range: 12-78; Units: U/L; Status: F Test: ALKALINE PHOSPHATASE; Value: 89; Range: 45-117; Units: U/L; Status: F Test: BILIRUBIN,TOTAL; Value: 0.2; Range: 0.2-1.0; Units: MG/DL; Status: F Test: BILIRUBIN,DIRECT; Value: < 0.1; Range: 0.0-0.2; Units: MG/DL; Status: F Test: TOTAL PROTEIN; Value: 5.9; Range: 6.4-8.2; Abnormal: Below low normal; Units: GM/DL; Status: F Test: ALBUMIN; Value: 2.8; Range: 3.2-5.2; Abnormal: Below low normal; Units: GM/DL; Status: F Test: ALBUMIN/GLOBULIN RATIO; Value: 0.90; Range: 1.00-1.93; Abnormal: Below low normal; Status: F Lab Order: URINALYSIS MANUAL; SPEC'M 11/20/16 21:39 Test: APPEARANCE, URINE MANUAL; Value: CLOUDY; Range: CLEAR; Abnormal: Above high normal; Status: F Test: COLOR, URINE MANUAL; Value: YELLOW; Range: YELLOW; Status: F Test: PH,URINE MAN; Value: 5.0; Range: 5.0 - 9.0; Units: UNITS; Status: F Test: SPECIFIC GRAVITY,URINE MANUAL; Value: 1.020; Range: 1.002-1.035; Status: F Test: PROTEIN, URINE MANUAL; Value: NEGATIVE; Range: NEGATIVE; Units: mg/dL; Status: F Test: GLUCOSE, URINE (UA) MANUAL; Value: NEGATIVE; Range: NEGATIVE; Units: mg/dL; Status: F Test: KETONE, URINE MANUAL; Value: NEGATIVE; Range: NEGATIVE; Units: mg/dL; Status: F Test: UROBILINOGEN, URINE MANUAL; Value: NORMAL; Range: NORMAL; Units: mg/dl; Status: F Test: BILIRUBIN, URINE MANUAL; Value: NEGATIVE; Range: NEGATIVE; Status: F Test: NITRITE, URINE MANUAL; Value: NEGATIVE; Range: NEGATIVE; Status: F Test: LEUKOCYTE ESTERASE, URINE MAN; Value: POSITIVE; Range: NEGATIVE; Abnormal: Above high normal; Status: F Test: BLOOD URINE MANUAL; Value: POSITIVE; Range: NEGATIVE; Abnormal: Above high normal; Status: F Lab Order: MICROSCOPIC, URINE; SPEC'M 11/20/16 21:39 Test: WBC, URINE; Value: TNTC; Range: 0-3; Abnormal: Above high normal; Units: /hpf; Status: F Test: RBC, URINE; Value: 20-30; Range: 0-3; Abnormal: Above high normal; Units: /hpf; Status: F Test: SQUAMOUS EPITHELIAL CELL URINE; Value: NONE SEEN; Range: SMALL AMT; Units: /hpf; Status: F Test: BACTERIA, URINE; Value: MOD AMOUNT; Range: NONE; Abnormal: Above high normal; Status: F Test: HYALINE CAST, URINE; Value: NONE SEEN; Range: 0-1; Units: /lpf; Status: F Test: MICROSCOPIC EXAM; Value: PERFORMED; Status: F Lab Order: -Blood Culture; SPEC'M 11/20/16 22:49 Test: BLOOD CULTURE; Value: No growth after 24 hours . All specimens observed; Status: F Test: BLOOD CULTURE; Value: for 5 days. Results final at that time.; Status: F Test: BLOOD CULTURE; Value: No Growth after 48 hours. All Specimens observed; Status: F Test: BLOOD CULTURE; Value: for 7 days. Results final at that time.; Status: F Lab Order: Urine Culture; SPEC'M 11/20/16 21:39 Test: URINE CULTURE; Value: <EXTERNAL COMMENT eCWMed> FULL REPORT IN LAB NOTES (eCW and Medent).; Status: F Test: URINE CULTURE; Value: ORGANISM 1: YEAST LIKE ORGANISM; Status: F Test: URINE CULTURE; Value: YEAST LIKE ORGANISM; Status: F Test: URINE CULTURE; Value: COLONY COUNT CFU/ml 100,000; Status: F Lab Order: BLOOD CULTURES; SPEC'M 11/20/16 23:17 Test: BLOOD CULTURE; Value: No growth after 24 hours . All specimens observed; Status: F Test: BLOOD CULTURE; Value: for 5 days. Results final at that time.; Status: F Test: BLOOD CULTURE; Value: No Growth after 48 hours. All Specimens observed; Status: F Test: BLOOD CULTURE; Value: for 7 days. Results final at that time.; Status: F Outcome: 04:08 Discharge ordered by Provider. cs11 04:25 Discharge Assessment: Patient awake, alert and oriented x 3. No cognitive and/or ko2 functional deficits noted. Patient verbalized understanding of disposition instructions. patient administered narcotics - no. The following High Risk Discharge criteria are identified: None. Discharged to home ambulatory, with significant other. Condition: good. No special radiology studies were completed. Property sent home with patient. 04:26 Patient left the ED. ko2 12:51 [facility] pharmacist called stating that they did not carry cefpodoxime and the pt is [facility] unable to afford RX anyway, could it be changed. Dr Swanson reviewed the chart and changed the antibiotic to Keflex 500 mg QID x 10 days.:. Addendum: 11/23/2016 11:07 Narrative: Urine culture results reviewed with Dr. Richards and Rx written for Flagyl 500 kcs mg BID x 10 days and patient is to f/u with PCP. Message left for patient to call us with her pharmacy of choice. 15:26 Narrative: patient called back and requests [facility] in [place] - Rx called in. iker Signatures: Digna Naik RN RN Lainey Recinos RN RN kpj Peters, Mary RN RN mcp Olaf, Kamilla, Reg Reg gb Sammy, Nicol, GRAPE CRUSHER GRAPE CRUSHER le Tawana, Caitlin, MANUFACTURING MACHINE OPERATOR MANUFACTURING MACHINE OPERATOR mary ann Abelardo Kohler, DO DO cs11 Lamonte Roque gr2 Shira Calabrese RN RN ko2 Ivana Elliott b Jaden, Jaquelin, MANUFACTURING MACHINE OPERATOR MANUFACTURING MACHINE OPERATOR cln Corrections: (The following items were deleted from the chart) 11/20 21:56 21:41 URINALYSIS+LAB sent. koPonce EDMS Chart Complete MTDD
--- NOTE | 2016-11-23 15:28 | EDDOCDS ---
Physician Documentation [facility] Name: Allison Weiss Age: 61 yrs Sex: Female : 1955 Arrival Date: 11/20/2016 Time: 20:50 Bed 17 Private MD: Khadijah Thomas Abdul Disposition: 11/21/16 04:08 Discharged to Home/Self Care. Impression: Urinary tract infection, site not specified - pyelonephritis, Vomiting, Urticaria. - Condition is Stable. - Discharge Instructions: Hives, Pyelonephritis, Adult, Nausea and Vomiting. - Prescriptions for cefpodoxime 200 mg Oral tablet - take 1 tablet by ORAL route every 12 hours for 14 days with food; 28 tablet. hydroxyzine HCl 25 mg Oral tablet - take 1 tablet by ORAL route 4 times per day as needed for hives/itching; 20 tablet. Medrol (Dylan) 4 mg Oral Tablets, Dose Pack - take 1 Pack by ORAL route as directed - follow package instructions; 1 packet. ZOFRAN ODT 4 mg - dissolve 1 tablet by ORAL route 4 times per day As needed do not chew, do not swallow whole; 10 tablet. - Medication Reconciliation, Local Pharmacy Hours form. - Follow up: Khadijah Thomas; When: Keep your scheduled appointment on Tuesday; Reason: Recheck today's complaints, Continuance of care. - Problem is an ongoing problem. - Symptoms have improved. - Notes: Keep hydrated Return to the ED for worsening symptoms, especially fever, dizziness, persistent vomiting, shortness of breath or worsening rash otherwise, keep your scheduled appointment, with your PCP on Tuesday Historical: - Allergies: no known allergies; - Home Meds: 1. Carafate 1 gram Oral tab three times a day 2. Cipro 500 mg Oral tab 1 tab every 12 hours 3. furosemide 40 mg Oral tab once daily 4. metformin 500 mg Oral tab 2 tabs 2 times per day 5. Oxygen 1.5 liters at night as needed 6. potassium chloride 20 mEq Oral TbER once daily 7. prednisone 5 mg Oral TbEC three times a day 8. hydrocodone-acetaminophen 5-325 mg Oral tab every 8 hours as needed 9. Xanax 1 mg Oral tab four times a day 10. lisinopril 10 mg Oral tab 1 tab once daily - PMHx: CHF; COPD; Diabetes - NIDDM: controlled; - PSHx: cyst removed leg; - Social history: Smoking status: Patient states former smoker of tobacco. No barriers to communication noted, The patient speaks fluent Venezuelan. - Family history: Not pertinent. - : The pt / caregiver states he / she is not on anticoagulants. Home medication list is obtained from the patient. - Exposure Risk Screening:: None identified. Vital Signs: 11/20 20:53 BP 93 / 70; Pulse 115; Resp 18 S; Temp 98.7(O); Pulse Ox 97% on R/A; Weight 84.37 kg / gr2 186 lbs (R); Height 5 ft. 5 in. (165.10 cm) (R); Pain 2/10; 22:24 Pulse 96 MON; Pulse Ox 97% ; ko2 22:25 BP 86 / 49 (auto/); ko2 22:39 Pulse 94 MON; Pulse Ox 98% ; ko2 22:40 BP 88 / 54 (auto/); ko2 22:54 Pulse 94 MON; Pulse Ox 95% ; ko2 22:55 BP 90 / 54 (auto/); ko2 23:09 Pulse 94 MON; Pulse Ox 95% ; ko2 23:10 BP 97 / 50 (auto/); ko2 23:25 BP 75 / 36 (auto/); ko2 23:25 Pulse 90 MON; Pulse Ox 94% ; ko2 23:36 BP 109 / 53 (auto/); ko2 23:36 Pulse 92 MON; Pulse Ox 94% ; ko2 23:39 Pulse 92 MON; Pulse Ox 94% ; ko2 23:40 BP 104 / 55 (auto/); ko2 23:54 Pulse 90 MON; Pulse Ox 95% ; ko2 23:55 BP 104 / 55 (auto/); ko2 02/05 00:10 BP 100 / 50 (auto/); ko2 00:10 Pulse 90 MON; Pulse Ox 95% ; ko2 00:25 BP 103 / 52 (auto/); ko2 00:25 Pulse 88 MON; Pulse Ox 94% ; ko2 02:09 Pulse Ox 93% ; ko2 02:10 BP 93 / 54 (auto/); ko2 04:12 BP 111 / 61; Pulse 82; Resp 20; Temp 96.9(TE); Pulse Ox 95% on 2 lpm NC; Pain 0/10; mary ann 11/20 20:53 Body Mass Index 30.95 (84.37 kg, 165.10 cm) gr2 MDM: 11/20 21:19 NS 0.9% 1000 ml IV at bolus once ordered. le 21:19 NS 0.9% 1000 ml IV at 100 mL/hr continuous ordered. le 21:19 Ondansetron 4 mg IVP once ordered. le 21:19 IV Saline Lock ordered. le 21:19 Undress patient appropriately for examination ordered. le 21:19 Solu-MEDROL 125 mg IVP once ordered. le 21:19 hydrOXYzine 25 mg PO once ordered. le 21:19 Basic Metabolic Profile Ordered. EDMS 21:19 CBC with Diff Ordered. EDMS 21:19 Lipase Ordered. EDMS 21:19 Liver Profile Ordered. EDMS 21:20 NOTHING BY MOUTH+DIET ordered. EDMS 21:56 URINALYSIS MANUAL Ordered. EDMS 21:57 CBC with Diff Reviewed. le 22:00 MICROSCOPIC, URINE Ordered. EDMS 22:22 Basic Metabolic Profile Reviewed. le 22:22 Liver Profile Reviewed. le 22:22 URINALYSIS MANUAL Reviewed. le 22:22 MICROSCOPIC, URINE Reviewed. le 22:22 Lipase Reviewed. le 22:25 -Blood Culture (Adults Only), peripheral from different site, or from device/port/PICC le etc. if present ordered. 22:25 -Blood Culture Ordered. EDMS 22:26 Urine Culture Ordered. EDMS 22:28 Piperacillin-Tazobactam 3.375 grams IVPB once over 30 mins; dilute in 50mL of NS or D5W le ordered. 22:29 -Blood Culture (Adults Only), peripheral from different site, or from device/port/PICC ml3 etc. if present complete. 22:30 BLOOD CULTURES Ordered. EDMS 22:58 Financial registration complete. gjb 23:37 [facility] Payment Agreement was scanned into [employer] and attached to record. gjb 23:53 NS 0.9% 1000 ml IV at 250 mL/hr continuous; piggyback with abx ordered. le 11/21 12:01 T-Sheet-- Draft Copy was scanned into [employer] and attached to record. gb Administered Medications: 11/20 21:52 Drug: NS 0.9% 1000 ml [sodium chloride 0.9 % intravenous solution] Route: IV; Rate: ko2 bolus; Site: left antecubital; 23:34 Follow up: IV Status: Completed infusion; IV Intake: 1000ml ko2 21:52 Drug: Solu-MEDROL 125 mg [Solu-Medrol 500 mg intravenous solution (125 mg)] Route: IVP; ko2 Site: left antecubital; 21:57 Drug: Ondansetron 4 mg [ondansetron HCl 2 mg/mL intravenous solution (2 mL)] Route: ko2 IVP; Site: left antecubital; 21:57 Drug: hydrOXYzine 25 mg [hydroxyzine HCl 25 mg tablet (1 tabs)] Route: PO; ko2 23:34 Drug: NS 0.9% 1000 ml [sodium chloride 0.9 % intravenous solution] Route: IV; Rate: 100 ko2 mL/hr; Site: left antecubital; 11/21 00:06 Drug: NS 0.9% 1000 ml [sodium chloride 0.9 % intravenous solution] Route: IV; Rate: 250 ko2 mL/hr; Site: left antecubital; 03:43 Follow up: IV Status: Completed infusion; IV Intake: 1000ml ko2 00:07 Drug: Piperacillin-Tazobactam 3.375 grams [piperacillin-tazobactam 3.375 gram ko2 intravenous solution] Route: IVPB; Infused Over: 30 mins; Site: left antecubital; 00:49 Follow up: IV Status: Completed infusion; IV Intake: 50ml ko2 Signatures: Dispatcher [employer] Zoraida Guevara RN RN mcp Barnhardt, Gloria, Reg Reg Shirley Gomez, Olive Pitter Unit ml3 Nicol Christianson, 411 DIRECTORY ASSISTANCE OPERATOR 411 DIRECTORY ASSISTANCE OPERATOR Abelardo Bosch DO DO cs11 Shira Calabrese RN RN ko2 Ivana Elliott The chart was reviewed and I authenticate all verbal orders and agree with the evaluation and treatment provided.Corrections: (The following items were deleted from the chart) 11/20 21:56 21:19 URINALYSIS+LAB ordered. [facility] Attachments: 23:37 [facility] Payment Agreement kevon 11/21 12:01 T-Sheet-- Draft Copy gb MTDD
--- NOTE | 2016-11-23 15:32 | EDDOCDS ---
Physician Documentation [facility] Name: Allison Weiss Age: 61 yrs Sex: Female : 1955 Arrival Date: 11/20/2016 Time: 20:50 Bed 17 Private MD: Khadijah Thomas Abdul Disposition: 11/21/16 04:08 Discharged to Home/Self Care. Impression: Urinary tract infection, site not specified - pyelonephritis, Vomiting, Urticaria. - Condition is Stable. - Discharge Instructions: Hives, Pyelonephritis, Adult, Nausea and Vomiting. - Prescriptions for cefpodoxime 200 mg Oral tablet - take 1 tablet by ORAL route every 12 hours for 14 days with food; 28 tablet. hydroxyzine HCl 25 mg Oral tablet - take 1 tablet by ORAL route 4 times per day as needed for hives/itching; 20 tablet. Medrol (Dylan) 4 mg Oral Tablets, Dose Pack - take 1 Pack by ORAL route as directed - follow package instructions; 1 packet. ZOFRAN ODT 4 mg - dissolve 1 tablet by ORAL route 4 times per day As needed do not chew, do not swallow whole; 10 tablet. - Medication Reconciliation, Local Pharmacy Hours form. - Follow up: Khadijah Thomas; When: Keep your scheduled appointment on Tuesday; Reason: Recheck today's complaints, Continuance of care. - Problem is an ongoing problem. - Symptoms have improved. - Notes: Keep hydrated Return to the ED for worsening symptoms, especially fever, dizziness, persistent vomiting, shortness of breath or worsening rash otherwise, keep your scheduled appointment, with your PCP on Tuesday Historical: - Allergies: no known allergies; - Home Meds: 1. Carafate 1 gram Oral tab three times a day 2. Cipro 500 mg Oral tab 1 tab every 12 hours 3. furosemide 40 mg Oral tab once daily 4. metformin 500 mg Oral tab 2 tabs 2 times per day 5. Oxygen 1.5 liters at night as needed 6. potassium chloride 20 mEq Oral TbER once daily 7. prednisone 5 mg Oral TbEC three times a day 8. hydrocodone-acetaminophen 5-325 mg Oral tab every 8 hours as needed 9. Xanax 1 mg Oral tab four times a day 10. lisinopril 10 mg Oral tab 1 tab once daily - PMHx: CHF; COPD; Diabetes - NIDDM: controlled; - PSHx: cyst removed leg; - Social history: Smoking status: Patient states former smoker of tobacco. No barriers to communication noted, The patient speaks fluent Turkish. - Family history: Not pertinent. - : The pt / caregiver states he / she is not on anticoagulants. Home medication list is obtained from the patient. - Exposure Risk Screening:: None identified. Vital Signs: 11/20 20:53 BP 93 / 70; Pulse 115; Resp 18 S; Temp 98.7(O); Pulse Ox 97% on R/A; Weight 84.37 kg / gr2 186 lbs (R); Height 5 ft. 5 in. (165.10 cm) (R); Pain 2/10; 22:24 Pulse 96 MON; Pulse Ox 97% ; ko2 22:25 BP 86 / 49 (auto/); ko2 22:39 Pulse 94 MON; Pulse Ox 98% ; ko2 22:40 BP 88 / 54 (auto/); ko2 22:54 Pulse 94 MON; Pulse Ox 95% ; ko2 22:55 BP 90 / 54 (auto/); ko2 23:09 Pulse 94 MON; Pulse Ox 95% ; ko2 23:10 BP 97 / 50 (auto/); ko2 23:25 BP 75 / 36 (auto/); ko2 23:25 Pulse 90 MON; Pulse Ox 94% ; ko2 23:36 BP 109 / 53 (auto/); ko2 23:36 Pulse 92 MON; Pulse Ox 94% ; ko2 23:39 Pulse 92 MON; Pulse Ox 94% ; ko2 23:40 BP 104 / 55 (auto/); ko2 23:54 Pulse 90 MON; Pulse Ox 95% ; ko2 23:55 BP 104 / 55 (auto/); ko2 02/05 00:10 BP 100 / 50 (auto/); ko2 00:10 Pulse 90 MON; Pulse Ox 95% ; ko2 00:25 BP 103 / 52 (auto/); ko2 00:25 Pulse 88 MON; Pulse Ox 94% ; ko2 02:09 Pulse Ox 93% ; ko2 02:10 BP 93 / 54 (auto/); ko2 04:12 BP 111 / 61; Pulse 82; Resp 20; Temp 96.9(TE); Pulse Ox 95% on 2 lpm NC; Pain 0/10; mary ann 11/20 20:53 Body Mass Index 30.95 (84.37 kg, 165.10 cm) gr2 MDM: 11/20 21:19 NS 0.9% 1000 ml IV at bolus once ordered. le 21:19 NS 0.9% 1000 ml IV at 100 mL/hr continuous ordered. le 21:19 Ondansetron 4 mg IVP once ordered. le 21:19 IV Saline Lock ordered. le 21:19 Undress patient appropriately for examination ordered. le 21:19 Solu-MEDROL 125 mg IVP once ordered. le 21:19 hydrOXYzine 25 mg PO once ordered. le 21:19 Basic Metabolic Profile Ordered. EDMS 21:19 CBC with Diff Ordered. EDMS 21:19 Lipase Ordered. EDMS 21:19 Liver Profile Ordered. EDMS 21:20 NOTHING BY MOUTH+DIET ordered. EDMS 21:56 URINALYSIS MANUAL Ordered. EDMS 21:57 CBC with Diff Reviewed. le 22:00 MICROSCOPIC, URINE Ordered. EDMS 22:22 Basic Metabolic Profile Reviewed. le 22:22 Liver Profile Reviewed. le 22:22 URINALYSIS MANUAL Reviewed. le 22:22 MICROSCOPIC, URINE Reviewed. le 22:22 Lipase Reviewed. le 22:25 -Blood Culture (Adults Only), peripheral from different site, or from device/port/PICC le etc. if present ordered. 22:25 -Blood Culture Ordered. EDMS 22:26 Urine Culture Ordered. EDMS 22:28 Piperacillin-Tazobactam 3.375 grams IVPB once over 30 mins; dilute in 50mL of NS or D5W le ordered. 22:29 -Blood Culture (Adults Only), peripheral from different site, or from device/port/PICC ml3 etc. if present complete. 22:30 BLOOD CULTURES Ordered. EDMS 22:58 Financial registration complete. gjb 23:37 [facility] Payment Agreement was scanned into [employer] and attached to record. gjb 23:53 NS 0.9% 1000 ml IV at 250 mL/hr continuous; piggyback with abx ordered. le 11/21 12:01 T-Sheet-- Draft Copy was scanned into [employer] and attached to record. gb Administered Medications: 11/20 21:52 Drug: NS 0.9% 1000 ml [sodium chloride 0.9 % intravenous solution] Route: IV; Rate: ko2 bolus; Site: left antecubital; 23:34 Follow up: IV Status: Completed infusion; IV Intake: 1000ml ko2 21:52 Drug: Solu-MEDROL 125 mg [Solu-Medrol 500 mg intravenous solution (125 mg)] Route: IVP; ko2 Site: left antecubital; 21:57 Drug: Ondansetron 4 mg [ondansetron HCl 2 mg/mL intravenous solution (2 mL)] Route: ko2 IVP; Site: left antecubital; 21:57 Drug: hydrOXYzine 25 mg [hydroxyzine HCl 25 mg tablet (1 tabs)] Route: PO; ko2 23:34 Drug: NS 0.9% 1000 ml [sodium chloride 0.9 % intravenous solution] Route: IV; Rate: 100 ko2 mL/hr; Site: left antecubital; 11/21 00:06 Drug: NS 0.9% 1000 ml [sodium chloride 0.9 % intravenous solution] Route: IV; Rate: 250 ko2 mL/hr; Site: left antecubital; 03:43 Follow up: IV Status: Completed infusion; IV Intake: 1000ml ko2 00:07 Drug: Piperacillin-Tazobactam 3.375 grams [piperacillin-tazobactam 3.375 gram ko2 intravenous solution] Route: IVPB; Infused Over: 30 mins; Site: left antecubital; 00:49 Follow up: IV Status: Completed infusion; IV Intake: 50ml ko2 Signatures: Dispatcher [employer] Zoraida Guevara RN RN mcp Barnhardt, Gloria, Reg Reg Shirley Gomez, Plant Science Professor Unit ml3 Nicol Christianson, EVP SALES EVP SALES Abelardo Bosch DO DO cs11 Shira Calabrese RN RN ko2 Ivana Elliott The chart was reviewed and I authenticate all verbal orders and agree with the evaluation and treatment provided.Corrections: (The following items were deleted from the chart) 11/20 21:56 21:19 URINALYSIS+LAB ordered. [facility] EDNM Attachments: 23:37 [facility] Payment Agreement kevon 11/21 12:01 T-Sheet-- Draft Copy gb Chart Complete MTDD
--- NOTE | 2016-11-23 15:32 | EDDOCDS ---
Physician Documentation [facility] Name: Allison Weiss Age: 61 yrs Sex: Female : 1955 Arrival Date: 11/20/2016 Time: 20:50 Bed 17 Private MD: Khadijah Thomas Abdul Disposition: 11/21/16 04:08 Discharged to Home/Self Care. Impression: Urinary tract infection, site not specified - pyelonephritis, Vomiting, Urticaria. - Condition is Stable. - Discharge Instructions: Hives, Pyelonephritis, Adult, Nausea and Vomiting. - Prescriptions for cefpodoxime 200 mg Oral tablet - take 1 tablet by ORAL route every 12 hours for 14 days with food; 28 tablet. hydroxyzine HCl 25 mg Oral tablet - take 1 tablet by ORAL route 4 times per day as needed for hives/itching; 20 tablet. Medrol (Dylan) 4 mg Oral Tablets, Dose Pack - take 1 Pack by ORAL route as directed - follow package instructions; 1 packet. ZOFRAN ODT 4 mg - dissolve 1 tablet by ORAL route 4 times per day As needed do not chew, do not swallow whole; 10 tablet. - Medication Reconciliation, Local Pharmacy Hours form. - Follow up: Khadijah Thomas; When: Keep your scheduled appointment on Tuesday; Reason: Recheck today's complaints, Continuance of care. - Problem is an ongoing problem. - Symptoms have improved. - Notes: Keep hydrated Return to the ED for worsening symptoms, especially fever, dizziness, persistent vomiting, shortness of breath or worsening rash otherwise, keep your scheduled appointment, with your PCP on Tuesday Historical: - Allergies: no known allergies; - Home Meds: 1. Carafate 1 gram Oral tab three times a day 2. Cipro 500 mg Oral tab 1 tab every 12 hours 3. furosemide 40 mg Oral tab once daily 4. metformin 500 mg Oral tab 2 tabs 2 times per day 5. Oxygen 1.5 liters at night as needed 6. potassium chloride 20 mEq Oral TbER once daily 7. prednisone 5 mg Oral TbEC three times a day 8. hydrocodone-acetaminophen 5-325 mg Oral tab every 8 hours as needed 9. Xanax 1 mg Oral tab four times a day 10. lisinopril 10 mg Oral tab 1 tab once daily - PMHx: CHF; COPD; Diabetes - NIDDM: controlled; - PSHx: cyst removed leg; - Social history: Smoking status: Patient states former smoker of tobacco. No barriers to communication noted, The patient speaks fluent Turkmen. - Family history: Not pertinent. - : The pt / caregiver states he / she is not on anticoagulants. Home medication list is obtained from the patient. - Exposure Risk Screening:: None identified. Vital Signs: 11/20 20:53 BP 93 / 70; Pulse 115; Resp 18 S; Temp 98.7(O); Pulse Ox 97% on R/A; Weight 84.37 kg / gr2 186 lbs (R); Height 5 ft. 5 in. (165.10 cm) (R); Pain 2/10; 22:24 Pulse 96 MON; Pulse Ox 97% ; ko2 22:25 BP 86 / 49 (auto/); ko2 22:39 Pulse 94 MON; Pulse Ox 98% ; ko2 22:40 BP 88 / 54 (auto/); ko2 22:54 Pulse 94 MON; Pulse Ox 95% ; ko2 22:55 BP 90 / 54 (auto/); ko2 23:09 Pulse 94 MON; Pulse Ox 95% ; ko2 23:10 BP 97 / 50 (auto/); ko2 23:25 BP 75 / 36 (auto/); ko2 23:25 Pulse 90 MON; Pulse Ox 94% ; ko2 23:36 BP 109 / 53 (auto/); ko2 23:36 Pulse 92 MON; Pulse Ox 94% ; ko2 23:39 Pulse 92 MON; Pulse Ox 94% ; ko2 23:40 BP 104 / 55 (auto/); ko2 23:54 Pulse 90 MON; Pulse Ox 95% ; ko2 23:55 BP 104 / 55 (auto/); ko2 02/05 00:10 BP 100 / 50 (auto/); ko2 00:10 Pulse 90 MON; Pulse Ox 95% ; ko2 00:25 BP 103 / 52 (auto/); ko2 00:25 Pulse 88 MON; Pulse Ox 94% ; ko2 02:09 Pulse Ox 93% ; ko2 02:10 BP 93 / 54 (auto/); ko2 04:12 BP 111 / 61; Pulse 82; Resp 20; Temp 96.9(TE); Pulse Ox 95% on 2 lpm NC; Pain 0/10; mary ann 11/20 20:53 Body Mass Index 30.95 (84.37 kg, 165.10 cm) gr2 MDM: 11/20 21:19 NS 0.9% 1000 ml IV at bolus once ordered. le 21:19 NS 0.9% 1000 ml IV at 100 mL/hr continuous ordered. le 21:19 Ondansetron 4 mg IVP once ordered. le 21:19 IV Saline Lock ordered. le 21:19 Undress patient appropriately for examination ordered. le 21:19 Solu-MEDROL 125 mg IVP once ordered. le 21:19 hydrOXYzine 25 mg PO once ordered. le 21:19 Basic Metabolic Profile Ordered. EDMS 21:19 CBC with Diff Ordered. EDMS 21:19 Lipase Ordered. EDMS 21:19 Liver Profile Ordered. EDMS 21:20 NOTHING BY MOUTH+DIET ordered. EDMS 21:56 URINALYSIS MANUAL Ordered. EDMS 21:57 CBC with Diff Reviewed. le 22:00 MICROSCOPIC, URINE Ordered. EDMS 22:22 Basic Metabolic Profile Reviewed. le 22:22 Liver Profile Reviewed. le 22:22 URINALYSIS MANUAL Reviewed. le 22:22 MICROSCOPIC, URINE Reviewed. le 22:22 Lipase Reviewed. le 22:25 -Blood Culture (Adults Only), peripheral from different site, or from device/port/PICC le etc. if present ordered. 22:25 -Blood Culture Ordered. EDMS 22:26 Urine Culture Ordered. EDMS 22:28 Piperacillin-Tazobactam 3.375 grams IVPB once over 30 mins; dilute in 50mL of NS or D5W le ordered. 22:29 -Blood Culture (Adults Only), peripheral from different site, or from device/port/PICC ml3 etc. if present complete. 22:30 BLOOD CULTURES Ordered. EDMS 22:58 Financial registration complete. gjb 23:37 [facility] Payment Agreement was scanned into [employer] and attached to record. gjb 23:53 NS 0.9% 1000 ml IV at 250 mL/hr continuous; piggyback with abx ordered. le 11/21 12:01 T-Sheet-- Draft Copy was scanned into [employer] and attached to record. gb Administered Medications: 11/20 21:52 Drug: NS 0.9% 1000 ml [sodium chloride 0.9 % intravenous solution] Route: IV; Rate: ko2 bolus; Site: left antecubital; 23:34 Follow up: IV Status: Completed infusion; IV Intake: 1000ml ko2 21:52 Drug: Solu-MEDROL 125 mg [Solu-Medrol 500 mg intravenous solution (125 mg)] Route: IVP; ko2 Site: left antecubital; 21:57 Drug: Ondansetron 4 mg [ondansetron HCl 2 mg/mL intravenous solution (2 mL)] Route: ko2 IVP; Site: left antecubital; 21:57 Drug: hydrOXYzine 25 mg [hydroxyzine HCl 25 mg tablet (1 tabs)] Route: PO; ko2 23:34 Drug: NS 0.9% 1000 ml [sodium chloride 0.9 % intravenous solution] Route: IV; Rate: 100 ko2 mL/hr; Site: left antecubital; 11/21 00:06 Drug: NS 0.9% 1000 ml [sodium chloride 0.9 % intravenous solution] Route: IV; Rate: 250 ko2 mL/hr; Site: left antecubital; 03:43 Follow up: IV Status: Completed infusion; IV Intake: 1000ml ko2 00:07 Drug: Piperacillin-Tazobactam 3.375 grams [piperacillin-tazobactam 3.375 gram ko2 intravenous solution] Route: IVPB; Infused Over: 30 mins; Site: left antecubital; 00:49 Follow up: IV Status: Completed infusion; IV Intake: 50ml ko2 Signatures: Dispatcher [employer] Zoraida Guevara RN RN mcp Barnhardt, Gloria, Reg Reg Shirley Gomez, Skin Diver Unit ml3 Nicol Christianson, WATER FITNESS INSTRUCTOR WATER FITNESS INSTRUCTOR Abelardo Bosch DO DO cs11 Shira Calabrese RN RN ko2 Ivana Elliott The chart was reviewed and I authenticate all verbal orders and agree with the evaluation and treatment provided.Corrections: (The following items were deleted from the chart) 11/20 21:56 21:19 URINALYSIS+LAB ordered. [facility] Attachments: 23:37 [facility] Payment Agreement kevon 11/21 12:01 T-Sheet-- Draft Copy gb Chart Complete MTDD
--- NOTE | 2016-11-23 15:33 | EDDOCDS ---
Nurse's Notes [facility] Name: Allison Weiss Age: 61 yrs Sex: Female : 1955 Arrival Date: 11/20/2016 Time: 20:50 Bed 17 Private MD: Khadijah Thomas Abdul Diagnosis: Urinary tract infection, site not specified-pyelonephritis;Vomiting;Urticaria Presentation: 11/20 20:58 Presenting complaint: Patient states: Stomach ache, vomiting, chills, rash on abdomen mcp and back. Adult Sepsis Screening: The patient does not have new or worsening altered mentation. Patient's respiratory rate is less than 22. Systolic blood pressure is less than or equal to 100 (1 point). Patient has a qSOFA score of 1- Negative Sepsis Screen. Suicide/Homicide risk assessment- the patient denies having any suicidal and/or homicidal ideations and does not present with any other emotional, behavioral or mental health complaints. Status: Patient is not a kosher dietary service manager or dependent. Transition of care: patient was not received from another setting of care. 20:58 Acuity: MARTHA Level 3 [facility] 20:58 Method Of Arrival: Wheelchair [facility] Triage Assessment: 21:02 General: Appears uncomfortable, Behavior is cooperative. Pain: Location: abdomen Pain mcp currently is 10 out of 10 on a pain scale. HIV screening NA for this visit Offered previously. Neurological: No deficits noted. Respiratory: Airway is patent Respiratory effort is even, unlabored. GI: Reports lower abdominal pain. Derm: Skin is pink, warm & dry. Historical: - Allergies: no known allergies; - Home Meds: 1. Carafate 1 gram Oral tab three times a day 2. Cipro 500 mg Oral tab 1 tab every 12 hours 3. furosemide 40 mg Oral tab once daily 4. metformin 500 mg Oral tab 2 tabs 2 times per day 5. Oxygen 1.5 liters at night as needed 6. potassium chloride 20 mEq Oral TbER once daily 7. prednisone 5 mg Oral TbEC three times a day 8. hydrocodone-acetaminophen 5-325 mg Oral tab every 8 hours as needed 9. Xanax 1 mg Oral tab four times a day 10. lisinopril 10 mg Oral tab 1 tab once daily - PMHx: CHF; COPD; Diabetes - NIDDM: controlled; - PSHx: cyst removed leg; - Social history: Smoking status: Patient states former smoker of tobacco. No barriers to communication noted, The patient speaks fluent [place]se. - Family history: Not pertinent. - : The pt / caregiver states he / she is not on anticoagulants. Home medication list is obtained from the patient. - Exposure Risk Screening:: None identified. Screenin:54 Infection Control. gr2 11/21 02:57 Screening information is obtained from the patient. Fall risk: No risks identified. ko2 Assistance ADL's: requires no assistance with activities of daily living. Abuse/DV Screen: The patient / caregiver reports he/she is: not in a situation that causes fear, pain or injury. Nutritional screening: No deficits noted. Advance Directives: Currently, there is no health care proxy. There is no active DNR order. There is no living will. There is no Power of Manuscripts Curator. home support is adequate. Assessment: 11/20 21:41 General: Appears in no apparent distress, Behavior is appropriate for age, cooperative. ko2 Pain: Location: abdomen. Neurological: Level of Consciousness is awake, alert. Respiratory: Airway is patent Respiratory effort is even, unlabored. GI: Bowel sounds present X 4 quads. Abd is soft X 4 quads. Derm: Rash noted that is itchy. Musculoskeletal: Range of motion intact in all extremities. 23:00 General: Appears in no apparent distress, Behavior is appropriate for age, cooperative. ko2 23:00 Pain: Location: abdomen. Neurological: Level of Consciousness is awake, alert. ko2 Respiratory: Airway is patent Respiratory effort is even, unlabored. GI: Abdomen is non- distended obese. Derm:. Musculoskeletal: Range of motion intact in all extremities. 11/21 00:07 General: Appears in no apparent distress, comfortable, pt currently appears to be ko2 asleep on the stretcher. Respirations unlabored at this time. Skin warm and dry. No concerns at this time. . 01:12 General: Appears in no apparent distress, comfortable, Behavior is appropriate for age, ko2 cooperative. Pain: Location: abdomen. Neurological: Level of Consciousness is awake, alert. Respiratory: Airway is patent Respiratory effort is even, unlabored. Derm: Skin is normal. 02:00 General: Appears in no apparent distress, comfortable, Behavior is appropriate for age, ko2 cooperative, Smells of. Neurological: Level of Consciousness is awake, alert. Respiratory: Airway is patent Respiratory effort is even, unlabored. Derm: Skin is normal. 03:04 General: Appears in no apparent distress, comfortable, Behavior is appropriate for age, ko2 cooperative. Neurological: Level of Consciousness is awake, alert. Respiratory: Airway is patent Respiratory effort is even, unlabored. Derm: Skin is normal. 04:25 General: Appears in no apparent distress, comfortable, Behavior is appropriate for age, ko2 cooperative. Neurological: Level of Consciousness is awake, alert. Respiratory: Airway is patent Respiratory effort is even, unlabored. Derm: Skin is normal. Vital Signs: 11/20 20:53 BP 93 / 70; Pulse 115; Resp 18 S; Temp 98.7(O); Pulse Ox 97% on R/A; Weight 84.37 kg gr2 (R); Height 5 ft. 5 in. (165.10 cm) (R); Pain 2/10; 22:24 Pulse 96 MON; Pulse Ox 97% ; ko2 22:25 BP 86 / 49 (auto/); ko2 22:39 Pulse 94 MON; Pulse Ox 98% ; ko2 22:40 BP 88 / 54 (auto/); ko2 22:54 Pulse 94 MON; Pulse Ox 95% ; ko2 22:55 BP 90 / 54 (auto/); ko2 23:09 Pulse 94 MON; Pulse Ox 95% ; ko2 23:10 BP 97 / 50 (auto/); ko2 23:25 BP 75 / 36 (auto/); ko2 23:25 Pulse 90 MON; Pulse Ox 94% ; ko2 23:36 BP 109 / 53 (auto/); ko2 23:36 Pulse 92 MON; Pulse Ox 94% ; ko2 23:39 Pulse 92 MON; Pulse Ox 94% ; ko2 23:40 BP 104 / 55 (auto/); ko2 23:54 Pulse 90 MON; Pulse Ox 95% ; ko2 23:55 BP 104 / 55 (auto/); ko2 11/21 00:10 BP 100 / 50 (auto/); ko2 00:10 Pulse 90 MON; Pulse Ox 95% ; ko2 00:25 BP 103 / 52 (auto/); ko2 00:25 Pulse 88 MON; Pulse Ox 94% ; ko2 02:09 Pulse Ox 93% ; ko2 02:10 BP 93 / 54 (auto/); ko2 04:12 BP 111 / 61; Pulse 82; Resp 20; Temp 96.9(TE); Pulse Ox 95% on 2 lpm NC; Pain 0/10; mary ann 11/20 20:53 Body Mass Index 30.95 (84.37 kg, 165.10 cm) gr2 Vitals: 11/20 20:53 Log In Time: November 20, 2016 at 20:53. gr2 ED Course: 20:52 Patient visited by Lamonte Roque. gr2 20:52 Patient moved to Waiting gr2 20:53 Khadijah Thomas is Private Physician. gr2 20:55 Patient visited by Lamonte Roque. gr2 20:55 Patient moved to Pre RCE gr2 20:59 Triage Initiated mcp 21:02 Patient visited by Zoraida Pedro RN. mcp 21:05 Shira Calabrese RN is Primary Nurse. mcp 21:05 Nicol Christianson FNP is PHCP. le 21:05 Patient moved to 17 mcp 21:09 Patient visited by Nicol Christianson FNP. le 21:09 Patient visited by Nicol Christianson FNP. le 21:12 Patient visited by Caitlin Gilliam PCA. mary ann 21:12 Pt greeted and oriented to ED. Patient advised of names of staff involved in care, mary ann location of call jensen, wait times and NPO status. Accompanied by Significant Other, Patient has correct armband on for positive identification. Placed in gown. Call light in reach. Side rails up X2. clinical research monitor on. Pulse ox on. NIBP on. 21:41 Basic Metabolic Profile Sent. ko2 21:41 CBC with Diff Sent. ko2 21:41 Lipase Sent. ko2 21:41 Liver Profile Sent. ko2 21:42 Inserted saline lock: 20 gauge in left antecubital area and blood collected. ko2 21:57 URINALYSIS MANUAL Sent. ko2 21:58 Patient visited by Shira Calabrese RN. ko2 22:50 Patient visited by Shira Calabrese,NICHELLE. ko2 23:19 BLOOD CULTURES Sent. cln 23:37 [facility] Payment Agreement was scanned into Wowo and attached to record. gjb 23:47 Patient visited by Shira Calabrese RN. ko2 02 00:49 Patient visited by Caitlin Gilliam PCA. mary ann 01:13 Patient visited by Shira Calabrese RN. ko2 02:09 Patient visited by Shira Calabrese RN. ko2 02:57 The patient / caregiver is instructed regarding the plan of care and ED course. ko2 03:04 Patient visited by Shira Calabrese RN. ko2 03:43 Patient visited by Shira Calabrese RN. ko2 04:08 Khadijah Thomas is Referral Physician. cs11 04:08 Abelardo Kohler DO is Attending Physician. cs11 04:13 Patient visited by Caitlin Gilliam PCA. mary ann 04:25 Discontinued lock intact, bleeding controlled, pressure dressing applied, No ko2 redness/swelling at site. No procedures done that require assistance. 12:01 T-Sheet-- Draft Copy was scanned into Wowo and attached to record. gb Administered Medications: 11/20 21:52 Drug: NS 0.9% 1000 ml [sodium chloride 0.9 % intravenous solution] Route: IV; Rate: ko2 bolus; Site: left antecubital; 23:34 Follow up: IV Status: Completed infusion; IV Intake: 1000ml ko2 21:52 Drug: Solu-MEDROL 125 mg [Solu-Medrol 500 mg intravenous solution (125 mg)] Route: IVP; ko2 Site: left antecubital; 21:57 Drug: Ondansetron 4 mg [ondansetron HCl 2 mg/mL intravenous solution (2 mL)] Route: ko2 IVP; Site: left antecubital; 21:57 Drug: hydrOXYzine 25 mg [hydroxyzine HCl 25 mg tablet (1 tabs)] Route: PO; ko2 23:34 Drug: NS 0.9% 1000 ml [sodium chloride 0.9 % intravenous solution] Route: IV; Rate: 100 ko2 mL/hr; Site: left antecubital; 11/21 00:06 Drug: NS 0.9% 1000 ml [sodium chloride 0.9 % intravenous solution] Route: IV; Rate: 250 ko2 mL/hr; Site: left antecubital; 03:43 Follow up: IV Status: Completed infusion; IV Intake: 1000ml ko2 00:07 Drug: Piperacillin-Tazobactam 3.375 grams [piperacillin-tazobactam 3.375 gram ko2 intravenous solution] Route: IVPB; Infused Over: 30 mins; Site: left antecubital; 00:49 Follow up: IV Status: Completed infusion; IV Intake: 50ml ko2 Intake: 11/20 23:34 IV: 1000.00ml; Total: 1000.00ml. ko2 11/21 00:49 IV: 50.00ml; Total: 1050.00ml. ko2 03:43 IV: 1000.00ml; Total: 2050.00ml. ko2 Order Results: Lab Order: Basic Metabolic Profile; SPEC'M 11/20/16 21:39 Test: GLUCOSE, FASTING; Value: 101; Range: 80-110; Units: MG/DL; Status: F Test: BLOOD UREA NITROGEN; Value: 25; Range: 7-18; Abnormal: Above high normal; Units: MG/DL; Status: F Test: CREATININE FOR GFR; Value: 1.21; Range: 0.55-1.02; Abnormal: Above high normal; Units: MG/DL; Status: F Test: GLOMERULAR FILTRATION RATE; Value: 48.2; Range: >45; Status: F Test: SODIUM LEVEL; Value: 143; Range: 136-145; Units: MEQ/L; Status: F Test: POTASSIUM SERUM; Value: 5.6; Range: 3.5-5.1; Abnormal: Above high normal; Units: MEQ/L; Status: F Test: CHLORIDE LEVEL; Value: 108; Range: 98-107; Abnormal: Above high normal; Units: MEQ/L; Status: F Test: CARBON DIOXIDE LEVEL; Value: 29; Range: 21-32; Units: MEQ/L; Status: F Test: ANION GAP; Value: 6; Range: 8-16; Abnormal: Below low normal; Units: MEQ/L; Status: F Test: CALCIUM LEVEL; Value: 8.4; Range: 8.8-10.2; Abnormal: Below low normal; Units: MG/DL; Status: F Test Note: ; Units are mL/min/1.73 m2 Chronic Kidney Disease Staging per NKF: Stage I & II GFR >=60 Normal to Mildly Decreased Stage III GFR 30-59 Moderately Decreased Stage IV GFR 15-29 Severely Decreased Stage V GFR <15 Very Little GFR Left ESRD GFR <15 on GLASS FURNACE OPERATOR Lab Order: CBC with Diff; ALAN'David 11/20/16 21:39 Test: WHITE BLOOD COUNT; Value: 11.3; Range: 4.0-10.0; Abnormal: Above high normal; Units: K/mm3; Status: F Test: RED BLOOD COUNT; Value: 3.40; Range: 4.00-5.40; Abnormal: Below low normal; Units: M/mm3; Status: F Test: HEMOGLOBIN; Value: 10.5; Range: 12.0-16.0; Abnormal: Below low normal; Units: g/dl; Status: F Test: HEMATOCRIT; Value: 32.9; Range: 36.0-47.0; Abnormal: Below low normal; Units: %; Status: F Test: MEAN CORPUSCULAR VOLUME; Value: 96.7; Range: 80.0-96.0; Abnormal: Above high normal; Units: fl; Status: F Test: MEAN CORPUSCULAR HEMOGLOBIN; Value: 30.8; Range: 27.0-33.0; Units: pg; Status: F Test: MEAN CORPUSCULAR HGB CONC; Value: 31.9; Range: 32.0-36.5; Abnormal: Below low normal; Units: g/dl; Status: F Test: RED CELL DISTRIBUTION WIDTH; Value: 13.7; Range: 11.5-14.5; Units: %; Status: F Test: PLATELET COUNT, AUTOMATED; Value: 378; Range: 150-450; Units: k/mm3; Status: F Test: NEUTROPHILS %; Value: 72.3; Range: 36.0-66.0; Abnormal: Above high normal; Units: %; Status: F Test: LYMPH %; Value: 14.9; Range: 24.0-44.0; Abnormal: Below low normal; Units: %; Status: F Test: MONO %; Value: 8.4; Range: 0.0-5.0; Abnormal: Above high normal; Units: %; Status: F Test: EOS %; Value: 2.2; Range: 0.0-3.0; Units: %; Status: F Test: BASO %; Value: 0.6; Range: 0.0-1.0; Units: %; Status: F Test: LARGE UNSTAINED CELL %; Value: 1.6; Range: 0.0-4.0; Units: %; Status: F Test: NEUTROPHILS #; Value: 8.2; Range: 1.8-7.7; Abnormal: Above high normal; Units: K/mm3; Status: F Test: LYMPH #; Value: 1.9; Range: 1.5-4.5; Units: K/mm3; Status: F Test: MONO #; Value: 1.0; Range: 0.0-0.8; Abnormal: Above high normal; Units: K/mm3; Status: F Test: EOS #; Value: 0.2; Range: 0.0-0.50; Units: K/mm3; Status: F Test: BASO #; Value: 0.1; Range: 0.0-0.2; Units: K/mm3; Status: F Test: LARGE UNSTAINED CELL #; Value: 0.2; Range: 0.0-0.4; Units: K/mm3; Status: F Lab Order: Lipase; SPEC' 11/20/16 21:39 Test: LIPASE; Value: 105; Range: 73-393; Units: U/L; Status: F Lab Order: Liver Profile; SPEC' 11/20/16 21:39 Test: AST/SGOT; Value: 10; Range: 15-37; Abnormal: Below low normal; Units: U/L; Status: F Test: ALT/SGPT; Value: 18; Range: 12-78; Units: U/L; Status: F Test: ALKALINE PHOSPHATASE; Value: 89; Range: 45-117; Units: U/L; Status: F Test: BILIRUBIN,TOTAL; Value: 0.2; Range: 0.2-1.0; Units: MG/DL; Status: F Test: BILIRUBIN,DIRECT; Value: < 0.1; Range: 0.0-0.2; Units: MG/DL; Status: F Test: TOTAL PROTEIN; Value: 5.9; Range: 6.4-8.2; Abnormal: Below low normal; Units: GM/DL; Status: F Test: ALBUMIN; Value: 2.8; Range: 3.2-5.2; Abnormal: Below low normal; Units: GM/DL; Status: F Test: ALBUMIN/GLOBULIN RATIO; Value: 0.90; Range: 1.00-1.93; Abnormal: Below low normal; Status: F Lab Order: URINALYSIS MANUAL; SPEC'M 11/20/16 21:39 Test: APPEARANCE, URINE MANUAL; Value: CLOUDY; Range: CLEAR; Abnormal: Above high normal; Status: F Test: COLOR, URINE MANUAL; Value: YELLOW; Range: YELLOW; Status: F Test: PH,URINE MAN; Value: 5.0; Range: 5.0 - 9.0; Units: UNITS; Status: F Test: SPECIFIC GRAVITY,URINE MANUAL; Value: 1.020; Range: 1.002-1.035; Status: F Test: PROTEIN, URINE MANUAL; Value: NEGATIVE; Range: NEGATIVE; Units: mg/dL; Status: F Test: GLUCOSE, URINE (UA) MANUAL; Value: NEGATIVE; Range: NEGATIVE; Units: mg/dL; Status: F Test: KETONE, URINE MANUAL; Value: NEGATIVE; Range: NEGATIVE; Units: mg/dL; Status: F Test: UROBILINOGEN, URINE MANUAL; Value: NORMAL; Range: NORMAL; Units: mg/dl; Status: F Test: BILIRUBIN, URINE MANUAL; Value: NEGATIVE; Range: NEGATIVE; Status: F Test: NITRITE, URINE MANUAL; Value: NEGATIVE; Range: NEGATIVE; Status: F Test: LEUKOCYTE ESTERASE, URINE MAN; Value: POSITIVE; Range: NEGATIVE; Abnormal: Above high normal; Status: F Test: BLOOD URINE MANUAL; Value: POSITIVE; Range: NEGATIVE; Abnormal: Above high normal; Status: F Lab Order: MICROSCOPIC, URINE; SPEC'M 11/20/16 21:39 Test: WBC, URINE; Value: TNTC; Range: 0-3; Abnormal: Above high normal; Units: /hpf; Status: F Test: RBC, URINE; Value: 20-30; Range: 0-3; Abnormal: Above high normal; Units: /hpf; Status: F Test: SQUAMOUS EPITHELIAL CELL URINE; Value: NONE SEEN; Range: SMALL AMT; Units: /hpf; Status: F Test: BACTERIA, URINE; Value: MOD AMOUNT; Range: NONE; Abnormal: Above high normal; Status: F Test: HYALINE CAST, URINE; Value: NONE SEEN; Range: 0-1; Units: /lpf; Status: F Test: MICROSCOPIC EXAM; Value: PERFORMED; Status: F Lab Order: -Blood Culture; SPEC'M 11/20/16 22:49 Test: BLOOD CULTURE; Value: No growth after 24 hours . All specimens observed; Status: F Test: BLOOD CULTURE; Value: for 5 days. Results final at that time.; Status: F Test: BLOOD CULTURE; Value: No Growth after 48 hours. All Specimens observed; Status: F Test: BLOOD CULTURE; Value: for 7 days. Results final at that time.; Status: F Lab Order: Urine Culture; SPEC'M 11/20/16 21:39 Test: URINE CULTURE; Value: <EXTERNAL COMMENT eCWMed> FULL REPORT IN LAB NOTES (eCW and Medent).; Status: F Test: URINE CULTURE; Value: ORGANISM 1: YEAST LIKE ORGANISM; Status: F Test: URINE CULTURE; Value: YEAST LIKE ORGANISM; Status: F Test: URINE CULTURE; Value: COLONY COUNT CFU/ml 100,000; Status: F Lab Order: BLOOD CULTURES; SPEC'M 11/20/16 23:17 Test: BLOOD CULTURE; Value: No growth after 24 hours . All specimens observed; Status: F Test: BLOOD CULTURE; Value: for 5 days. Results final at that time.; Status: F Test: BLOOD CULTURE; Value: No Growth after 48 hours. All Specimens observed; Status: F Test: BLOOD CULTURE; Value: for 7 days. Results final at that time.; Status: F Outcome: 04:08 Discharge ordered by Provider. cs11 04:25 Discharge Assessment: Patient awake, alert and oriented x 3. No cognitive and/or ko2 functional deficits noted. Patient verbalized understanding of disposition instructions. patient administered narcotics - no. The following High Risk Discharge criteria are identified: None. Discharged to home ambulatory, with significant other. Condition: good. No special radiology studies were completed. Property sent home with patient. 04:26 Patient left the ED. ko2 12:51 [facility] pharmacist called stating that they did not carry cefpodoxime and the pt is [facility] unable to afford RX anyway, could it be changed. Dr Swanson reviewed the chart and changed the antibiotic to Keflex 500 mg QID x 10 days.:. Addendum: 11/23/2016 11:07 Narrative: Urine culture results reviewed with Dr. Richards and Rx written for Flagyl 500 kcs mg BID x 10 days and patient is to f/u with PCP. Message left for patient to call us with her pharmacy of choice. 15:26 Narrative: patient called back and requests [facility] in [place] - Rx called in. iker Signatures: Digna Naik RN RN Lainey Recinos RN RN kpj Peters, Mary RN RN mcp Olaf, Kamilla, Reg Reg gb Sammy, Nicol, FLATBED COMPANY DRIVER FLATBED COMPANY DRIVER le Tawana, Caitlin, TICKETER TICKETER mary ann Abelardo Kohler, DO DO cs11 Lamonte Roque gr2 Shira Calabrese RN RN ko2 Ivana Elliott b Jaden, Jaquelin, TICKETER TICKETER cln Corrections: (The following items were deleted from the chart) 11/20 21:56 21:41 URINALYSIS+LAB sent. koPonce EDMS Chart Complete MTDD
== END 2016-11-21 04:26 | disposition home or self-care (01) ==
LOC: M ED 20:50
DX: N10 Acute pyelonephritis (principal); E86.0 Dehydration; R11.2 Nausea with vomiting, unspecified; R10.9 Unspecified abdominal pain; I50.9 Heart failure, unspecified; J44.9 Chronic obstructive pulmonary disease, unspecified; E11.9 Type 2 diabetes mellitus without complications; Z87.891 Personal history of nicotine dependence; Z79.899 Other long term (current) drug therapy
CPT/HCPCS: 36415; 80048; 80076; 81000; 83690; 85025; 87040; 96361; 96365; 96375; 99284; J2405; J2543; J2930

== ENCOUNTER 2016-11-27 12:17 | Inpatient (IN) | payer MEDICAID, SELFPAY ==
[~2016-11-27] VITALS: Ht 165.1 cm; Wt 96.2 kg
[2016-11-27] VITALS (7 sets, daily range): BP systolic 94–102; BP diastolic 51–69
[2016-11-27] MEDS ORDERED: ONDANSETRON 4MG/2ML VIAL (J2405) As Ordered ONE (12:36)
[2016-11-27 12:54] LABS: BASO # 0.1 K/mm3 (0.0-0.2); BASO % 0.5 % (0.0-1.0); EOS # 0.1 K/mm3 (0.0-0.50); EOS % 0.4 % (0.0-3.0); LARGE UNSTAINED CELL # 0.3 K/mm3 (0.0-0.4); LARGE UNSTAINED CELL % 1.5 % (0.0-4.0); LYMPH # 2.3 K/mm3 (1.5-4.5); LYMPH % 11.7 % (24.0-44.0); MEAN CORPUSCULAR HEMOGLOBIN 29.6 pg (27.0-33.0); MEAN CORPUSCULAR HGB CONC 31.1 g/dl (32.0-36.5); MEAN CORPUSCULAR VOLUME 95.1 fl (80.0-96.0); MONO # 1.2 K/mm3 (0.0-0.8); MONO % 6.4 % (0.0-5.0); NEUTROPHILS # 15.4 K/mm3 (1.8-7.7); NEUTROPHILS % 79.5 % (36.0-66.0); PLATELET COUNT, AUTOMATED 505 k/mm3 (150-450); RED CELL DISTRIBUTION WIDTH 13.6 % (11.5-14.5); WHITE BLOOD COUNT 19.3 K/mm3 (4.0-10.0)
[2016-11-27 12:57] LABS: VENOUS BASE EXCESS 1.4 (-2.0-2.0); VENOUS O2 SATURATION 86.7 % (60.0-80.0); VENOUS PARTIAL PRESSURE CO2 46.3 mmHg (38.0-50.0); VENOUS PARTIAL PRESSURE O2 52.4 mmHg (30.0-50.0); VENOUS STANDARD HCO3 25.5 MEQ/L; VENOUS TOTAL CO2 28.4 MEQ/L (24.0-28.0)
[2016-11-27 13:14] LABS: INR 1.13
[2016-11-27 13:15] LABS: ALBUMIN 3.5 GM/DL (3.2-5.2); ALBUMIN/GLOBULIN RATIO 1.13 (1.00-1.93); ALKALINE PHOSPHATASE 80 U/L (45-117); ALT/SGPT 23 U/L (12-78); ANION GAP 12 MEQ/L (8-16); AST/SGOT 14 U/L (15-37); BILIRUBIN,DIRECT < 0.1 MG/DL (0.0-0.2); BILIRUBIN,TOTAL 0.3 MG/DL (0.2-1.0); BLOOD UREA NITROGEN 35 MG/DL (7-18); CALCIUM LEVEL 9.5 MG/DL (8.8-10.2); CARBON DIOXIDE LEVEL 30 MEQ/L (21-32); CHLORIDE LEVEL 94 MEQ/L (98-107); CREATININE FOR GFR 1.65 MG/DL (0.55-1.02); GLOMERULAR FILTRATION RATE 33.7 (>45); GLUCOSE, FASTING 248 MG/DL (80-110); POTASSIUM SERUM 4.1 MEQ/L (3.5-5.1); SODIUM LEVEL 136 MEQ/L (136-145); TOTAL PROTEIN 6.6 GM/DL (6.4-8.2)
[2016-11-27] MEDS ORDERED: ZOSYN 3.375 GM VIAL (J2543) As Ordered ONE (13:31)
[2016-11-27 13:41] LABS: AMYLASE 91 U/L (25-115)
--- NOTE | 2016-11-27 14:32 | REP ---
AP PORTABLE CHEST: 11/27/2016. Clinical history: Hypotension. Comparison: 10/19/2016, 08/28/2016. Findings: Lungs are hyperinflated with somewhat flattened diaphragms. No dense consolidation or definite effusion. No parenchymal mass. Heart mildly enlarged. There is mild venous hypertension without pulmonary edema, pleural effusion or definite infiltrate. There is no widening of the mediastinum. Airway intact. Aorta normal. Impression: 1. Hyperinflation and some basilar fibrotic change with mild cardiomegaly, venous hypertension but no cassidy edema. I see no dense consolidation or effusion. Signed by Cal Kirkpatrick MD 11/27/2016 03:12 P
[2016-11-27] MEDS ORDERED: fentaNYL 100 MCG/2 ML INJECTION (J3010) As Ordered ONE (14:40)
--- NOTE | 2016-11-27 14:59 | REP ---
CT ABDOMEN AND PELVIS WITHOUT CONTRAST: 11/27/2016. Clinical history: Sepsis, possible diverticulitis. Comparison: Noncontrast CT 06/02/2016. Findings: Abdomen: The noncontrast images show lung bases clear without effusion or infiltrate. Heart is mildly enlarged. No pericardial thickening or effusion and no hiatal hernia. There is hepatomegaly with at least an 18 cm vertical diameter of the liver in the right midclavicular line. Left hepatic lobe also mildly prominent. There is no splenomegaly, focal hepatic or splenic lesion nor intrahepatic biliary dilatation. Gallbladder shows no calcified stone or mass. Pancreas shows no mass, ductal dilatation or inflammatory change. Adrenal glands grossly intact with slight thickening of limbs suggesting adrenal hyperplasia. The right kidney showed no hydronephrosis, stone or mass. The left kidney shows a staghorn calculus in the interpolar and lower pole region measuring up to 4.6 x 2.4 x 2.1 cm in its greatest diameter, it has a dumbbell shape with a larger component at that renal sinus and hilus. Some mild hydronephrosis in the upper pole. The ureter on both sides is without dilatation or stone. No ureteral displacement or periureteral inflammatory change. The aorta has atherosclerotic calcifications without aneurysm. There are small periaortic and mesenteric nodes not felt to be definite pathologic small bowel loops were intact. The colon show of the right colon flexures and transverse colon intact. The proximal left colon unremarkable. Distal left colon shows increasingly severe diverticulosis similar to previous study. I see no free air or perforation in the abdomen or pelvis on lung window review of all CT slices. The bone windows show lumbar and lower thoracic spine without compression deformity. There is some minor hypertrophic facet changes. Visualized ribs intact. CT pelvis: Hips, SI joints, sacrum, iliac wings were intact. There are old post-traumatic changes of the symphysis pubis and superior pubic ramus on the right. The distal ureters are without dilatation or stone. Uterus tilted towards the left but not enlarged. Manuel catheter balloon is seen inflated in the bladder with the bladder empty. No pelvic mass or adenopathy. The distal left colon and sigmoid show extensive and severe diverticulosis, it is difficult to entirely exclude some degree of diverticulitis and I do suspect it. Small bowel loops in the pelvis unremarkable. Appendix is seen and normal. That extends medially and upward from its origin near the cecal tip. No inguinal hernia or adenopathy. Small midline ventral hernia in the suprapubic region. No other findings. Impression: 1. Staghorn calculus in the left kidney collecting system as on the previous study it is dumbbell shaped larger at the renal sinus and hilus and up to 4.6 x 2.4 x 2.1 cm. Some hydronephrosis of the upper pole. No other stones, hydroureter, ureteral stone or right renal calculus or hydro. This could certainly be a cause for sepsis and UTI. 2. Severe distal left colonic and sigmoid diverticulosis. There may be some mild diverticulitis in the distal left colon and proximal sigmoid. No perforation, abscess or free air, however. 3. Small ventral hernia midline suprapubic region as before. A small knuckle of small bowel loops. 4. Hepatomegaly without focal hepatic, splenic, pancreatic or adrenal acute finding. No other significant or acute finding. Signed by Cal Kirkpatrick MD 11/27/2016 03:13 P
[2016-11-27] MEDS ORDERED: METR500T10 PO (15:50)
[2016-11-27] MEDS ORDERED: LISI10TA4 PO (15:50)
[2016-11-27] MEDS ORDERED: CEPH500C PO (15:51)
[2016-11-27] MEDS ORDERED: STRI1AER2 INH (15:57)
[2016-11-27] MEDS ORDERED: ARNU1INH3 INH (15:57)
[2016-11-27] MEDS ORDERED: ALPR1TAB3 PO (15:57)
[2016-11-27] MEDS ORDERED: ZOFR20TA PO (15:57)
[2016-11-27] MEDS ORDERED: INCR1INH INH (15:57)
[2016-11-27] MEDS ORDERED: HYDR25T PO (15:57)
--- NOTE | 2016-11-27 16:15 | HPEPDOC ---
Medical History and Physical Date of Admission 11/27/16 History and Physical PRIMARY CARE PROVIDER: ATTENDING: Breann Robles M.D. CHIEF COMPLAINT: Suprapubic pain, generalized weakness HISTORY OF PRESENT ILLNESS: This is 61-year-old female past medical history of COPD on 1-1/2 L O2 at night, diastolic heart failure with preserved EF, diabetes mellitus, diverticulosis, anxiety who presents complaining of generalized weakness and chills. Patient's initially came to the emergency department on Tuesday suprapubic pain and found to have a urinary tract infection, placed on Keflex which she has been taking. Patient states that she was called from the emergency department and told to take Flagyl given and possibly some infection. Patient states she did tolerate Keflex however started to develop nausea and vomiting with Flagyl for which she stopped on Tuesday. The patient states that's she has been having decreased appetite, increasing suprapubic pain, diaphoresis, and chills. No fevers. No dysuria. Patient denies cough/diarrhea. In the ED patient was found to be profoundly hypotensive with systolic blood pressure in the 40s with improvements 2 and half liters of normal saline bolus. PAST MEDICAL HISTORY: As per HPI PAST SURGICAL HISTORY: Cyst removed from leg. History of cervical cancer status post hysterectomy. SOCIAL HISTORY: History of 1-1/2 packs per day 43 years. Quit many years ago. Denies alcohol or illicit drug use. FAMILY HISTORY: Noncontributory ALLERGIES: Please see below. REVIEW OF SYSTEMS: HOME MEDICATIONS: Please see below. PHYSICAL EXAMINATION: Vitals: (see below) General: No acute distress, laying comfortably in bed. HEENT: Moist mucous membranes. Neck: No JVD or lymphadenopathy Cardiac: RRR, No murmurs Pulm: Clear to auscultation b/l. No wheezing, rhonchi Abd: Tenderness to palpation the suprapubic region. No rebound, guarding, rigidity. ND + BS Ext: No edema or cyanosis. Strength lower extremities 5 out of 5 bilaterally. LABORATORY DATA: See below. IMAGING: CT abd/pelvis 11/27/16 Impression: 1. Staghorn calculus in the left kidney collecting system as on the previous study it is dumbbell shaped larger at the renal sinus and hilus and up to 4.6 x 2.4 x 2.1 cm. Some hydronephrosis of the upper pole. No other stones, hydroureter, ureteral stone or right renal calculus or hydro. This could certainly be a cause for sepsis and UTI. 2. Severe distal left colonic and sigmoid diverticulosis. There may be some mild diverticulitis in the distal left colon and proximal sigmoid. No perforation, abscess or free air, however. 3. Small ventral hernia midline suprapubic region as before. A small knuckle of small bowel loops. 4. Hepatomegaly without focal hepatic, splenic, pancreatic or adrenal acute finding. No other significant or acute finding. CXR 11/27/16 Impression: 1. Hyperinflation and some basilar fibrotic change with mild cardiomegaly, venous hypertension but no cassidy edema. I see no dense consolidation or effusion. MICROBIOLOGY: Please see below. ASSESSMENT/PLAN: Severe sepsis- likely secondary to complicated urinary tract infection. Patient does have a large staghorn calculus is likely contributing. We'll recheck to urology regarding possible intervention. Patient also has some inflammatory changes within her diverticuli, which may represent diverticulitis. We'll place patient on broad-spectrum antibiotics with Zosyn and vancomycin pending cultures. Patient was profoundly hypotensive secondary to this infection as well as taken furosemide and lisinopril this morning. Blood culture urine culture pending. We'll trend lactic acid. We will observe in ICU until blood pressure stabilizes. Continue MAP> 65. COPD- on one and half liters home O2 at night. Stable. Continue nebs. Hypertension- currently hypotensive. Will hold all by mouth meds at this time. Diabetes mellitus- hold metformin. Sliding-scale insulin. History of GERD- continue home meds Anxiety/depression- continue home meds DVT prophylaxis- heparin subcutaneous Patient be followed by Dr. Ana Maria Rogers starting to 7 AM. Vital Signs Blood pressure 49/41 on presentation, currently 103/69, heart rates 122 on presentation, currently 99, respiratory rate 16, O2 saturation 96% on room air, afebrile. Laboratory Data Labs 24H Laboratory Tests 2 11/27/16 12:29: Aspartate Amino Transf (AST/SGOT) 14L, Alanine Aminotransferase (ALT/SGPT) 23, Alkaline Phosphatase 80, Total Bilirubin 0.3, Direct Bilirubin < 0.1, Albumin 3.5, Albumin/Globulin Ratio 1.13, Amylase Level 91, Anion Gap 12, White Blood Count 19.3H, Red Blood Count 4.26, Hemoglobin 12.6, Hematocrit 40.5, Mean Corpuscular Volume 95.1, Mean Corpuscular Hemoglobin 29.6, Mean Corpuscular Hemoglobin Concent 31.1L, Red Cell Distribution Width 13.6, Platelet Count 505H , Neutrophils (%) (Auto) 79.5H, Lymphocytes (%) (Auto) 11.7L, Monocytes (%) ( Auto) 6.4H, Eosinophils (%) (Auto) 0.4, Basophils (%) (Auto) 0.5, Neutrophils # (Auto) 15.4H, Lymphocytes # (Auto) 2.3, Monocytes # (Auto) 1.2H, Eosinophils # ( Auto) 0.1, Basophils # (Auto) 0.1, Blood Gas Bicarbonate Standard 25.5, C- Reactive Protein, Quantitative 1.77H, Calcium Level 9.5, Creatine Kinase MB 3.0 , Creatine Kinase MB Relative Index 7.69H, Glomerular Filtration Rate 33.7L, Lactic Acid (Sepsis) 2.9*H, Large Unclassified Cells # 0.3, Large Unclassified Cells % 1.5, Total Creatine Kinase 39, Total Protein 6.6, Troponin I < 0.02, Venous Blood Base Excess 1.4, Venous Blood pH 7.384, Venous Blood Partial Pressure CO2 46.3, Venous Blood Partial Pressure O2 52.4H, Venous Blood Total Carbon Dioxide 28.4H, Venous Blood HCO3 27.0, Venous Blood Oxygen Saturation 86.7H 11/27/16 12:59: Activated Partial Thromboplast Time 26.2L, Prothromb Time International Ratio 1.13, Prothrombin Time 14.6H 11/27/16 15:36: Urine Amorphous Sediment SMALLH, Urine Appearance CLEAR, Urine Color MALGORZ[place], Urine pH 5.0, Urine Specific [place] 1.008, Urine Protein NEGATIVE, Urine Glucose (UA) NEGATIVE, Urine Ketones NEGATIVE, Urine Urobilinogen 0.2, Urine Bilirubin NEGATIVE, Urine Leukocyte Esterase 3+H, Urine Bacteria (Auto) 1+H, Urine Blood 2+H, Urine Calcium Carbonate Cryst(Auto) , Urine Calcium Oxalate Cryst (Auto) , Urine Calcium Phosphate Lauren (Auto) , Urine Cellular Casts , Urine Cystine Crystals , Urine Granular Casts (Auto) , Urine Hyaline Casts (Auto ) 0, Urine Leucine Crystals , Urine Mucus (Auto) SMALL, Urine Nitrite NEGATIVE, Urine Oval Fat Bodies (Auto) , Urine RBC (Auto) 27H, Urine Renal Epithelial Cells , Urine Sperm (Auto) , Urine Squamous Epithelial Cells 0, Urine Transitional Epithelial Cells , Urine Trichomonas (Auto) , Urine Triple Phosphate Cryst (Auto) , Urine Tyrosine Crystals , Urine Uric Acid Crystals ( Auto) , Urine WBC (Auto) 80H, Urine Waxy Casts (Auto) , Urine Yeast-Like Cells ( Auto) CBC/BMP Laboratory Tests 11/27/16 12:29 Red Blood Count 4.26, Mean Corpuscular Volume 95.1, Mean Corpuscular Hemoglobin 29.6, Mean Corpuscular Hemoglobin Concent 31.1 L, Red Cell Distribution Width 13.6, Neutrophils (%) (Auto) 79.5 H, Lymphocytes (%) (Auto) 11.7 L, Monocytes (% ) (Auto) 6.4 H, Eosinophils (%) (Auto) 0.4, Basophils (%) (Auto) 0.5, Neutrophils # (Auto) 15.4 H, Lymphocytes # (Auto) 2.3, Monocytes # (Auto) 1.2 H , Eosinophils # (Auto) 0.1, Basophils # (Auto) 0.1 Microbiology Microbiology 11/27/16 Blood Culture, Received Pending 11/27/16 Blood Culture, Received Pending 11/27/16 Urine Culture, Received Pending Home Medications Scheduled (Incruse Ellipta) 62.5 Mcg/Inh Inh 62.5 MCG INH DAILY (Arnuity Ellipta) 200 Mcg/Act Inh 200 MCG INH DAILY (Striverdi Respimat) 2.5 Mcg/Act Aer 2 PUFFS INH DAILY Alprazolam (Alprazolam) 1 Mg Tab 1 MG PO TID Cephalexin Monohydrate (Cephalexin) 500 Mg Cap 500 MG PO QID FILLED 11/21/16 FOR 10 DAYS Furosemide (Furosemide) 40 Mg Tab 40 MG PO DAILY Lisinopril (Lisinopril) 10 Mg Tab 10 MG PO DAILY Metformin Hydrochloride (Metformin HCl) 500 Mg Tab 1,000 MG PO BID Metronidazole (Metronidazole) 500 Mg Tab 500 MG PO BID STARTED 11/23/16 FOR 10 DAYS Potassium Chloride (Potassium Chloride ER) 20 Meq Tab 20 MEQ PO QHS Sucralfate (Sucralfate) 1 Gm Tab 1 GM PO TID Scheduled PRN Acetaminophen/Hydrocodone (Hydrocodone/Acetaminophen 7.5-325 mg) 1 Tab Tab 1 TAB PO TID PRN PRN PAIN Albuterol Sulfate (Ventolin Hfa) 200 Puff/8 Gm Aers 2 PUFF INH Q4H PRN PRN SHORTNESS OF BREATH Albuterol Sulfate (Albuterol Sulfate) 2.5 Mg/0.5 Ml Neb 2.5 MG INH Q4H PRN PRN SHORTNESS OF BREATH Hydroxyzine HCl (Hydroxyzine HCl) 25 Mg Tab 25 MG PO TID PRN PRN HIVES Ondansetron HCl (Zofran) 4 Mg Tab 4 MG PO PRN PRN PRN NAUSEA OR VOMITING Allergies Coded Allergies: No Known Allergies (Unverified , 01/20/14) BREANN ROBLES MD Nov 27, 2016 16:15
[2016-11-27] MEDS ORDERED: VANCOMYCIN HCL 1,000 MG, VIAL MATE ADAPTER 1 EACH in D5W 250 ML IV ONE (18:00)
--- NOTE | 2016-11-27 18:07 | EDDOCDS ---
Nurse's Notes [facility] Name: Allison Weiss Age: 61 yrs Sex: Female : 1955 Arrival Date: 11/27/2016 Time: 12:17 Bed 3 Private MD: Khadijah Thomas Diagnosis: Sepsis, unspecified organism;Discitis, unspecified, lumbar region-suspected;Calculus of kidney-staghorn, left without significant changes from prior CTs;Diverticulosis of large intestine without perforation or abscess without bleeding Presentation: 11/27 12:24 Presenting complaint: Patient states: Feeling ill with abdominal pain N/V, dizziness mlb1 and diaphoresis began this am. Adult Sepsis Screening: The patient does not have new or worsening altered mentation. Patient has a respiratory rate of greater than or equal to 22 (1 point). Systolic blood pressure is less than or equal to 100 (1 point). Patient has a qSOFA score of 2. Suicide/Homicide risk assessment- the patient denies having any suicidal and/or homicidal ideations and does not present with any other emotional, behavioral or mental health complaints. 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 Transition of care: patient was not received from another setting of care. 12:24 Acuity: MARTHA Level 2 mlb1 12:24 Method Of Arrival: Walkin/Carried/Asstd mlb1 Triage Assessment: 12:28 General: Appears ill, Behavior is appropriate for age, cooperative. Pain: Location: mlb1 right lower quadrant and left lower quadrant Pain currently is 8 out of 10 on a pain scale. Pt Declines HIV testing. The patient is triaged at the bedside. See Assessment in Nurses Notes section of ED record. Neurological: Reports dizziness. GI: Reports nausea. Historical: - Allergies: no known allergies; - Home Meds: 1. Carafate 1 gram Oral tab three times a day 2. furosemide 40 mg Oral tab once daily 3. hydrocodone-acetaminophen 5-325 mg Oral tab every 8 hours as needed 4. lisinopril 10 mg Oral tab 1 tab once daily 5. metformin 500 mg Oral tab 2 tabs 2 times per day 6. Oxygen 1.5 liters at night as needed 7. potassium chloride 20 mEq Oral TbER once daily 8. Flagyl 500 mg Oral tab 1 tab 2 times per day 9. Prednisone Oral dose pack 10. Keflex 500 mg Oral cap 1 cap every 6 hours 11. Zofran (as hydrochloride) 4 mg Oral tab 4 mg every 8 hours 12. hydroxyzine HCl 25 mg Oral tab 1 tab 3 times per day 13. alprazolam 1 mg Oral tab 1 tab 3 times per day 14. Sertraline 50 mg daily - PMHx: CHF; COPD; Diabetes - NIDDM: controlled; Diverticulosis; - PSHx: cyst removed leg; - Social history: Smoking status: Patient states former smoker of tobacco. No barriers to communication noted, The patient speaks fluent American, Speaks appropriately for age. - Family history: Not pertinent. - : The pt / caregiver states he / she is not on anticoagulants. Home medication list is obtained from the patient. - Exposure Risk Screening:: None identified. - Immunization history:: All immunizations up-to-date. - Social history:: the patient is a former smoker, the patient does not drink alcohol. Screenin:26 Infection Control. el 12:29 Screening information is obtained from the patient. Fall risk: No risks identified. pml Assistance ADL's: requires no assistance with activities of daily living. Abuse/DV Screen: The patient / caregiver reports he/she is: not in a situation that causes fear, pain or injury. Nutritional screening: On diabetic diet. Advance Directives: Currently, there is no health care proxy. There is no active DNR order. home support is adequate. Assessment: 12:29 General: Appears ill, Behavior is appropriate for age, cooperative. Pain: Location: pml back and right lower quadrant Pain currently is 8 out of 10 on a pain scale. Neurological: Level of Consciousness is awake, alert, Oriented to person, place, time, Pupils are PERRLA. Cardiovascular: Capillary refill < 3 seconds Rhythm is sinus tachycardia No ectopy. Respiratory: Airway is patent Respiratory effort is even, unlabored, Respiratory pattern is regular, hyperventilation Breath sounds are clear bilaterally. GI: Abdomen is non- distended obese, Bowel sounds hypoactive in right upper quadrant, left upper quadrant, right lower quadrant and left lower quadrant Abd is soft X 4 quads Abd is tender to palpation in right upper quadrant Reports lower abdominal pain, nausea, vomiting. Derm: Skin is pink, warm & dry. 13:00 General: resting on stretcher, complains of feeling cold and lower abdominal and back pml pain. alert and oriented x 3. resps rapid, unlabored, skin p/w/d. . 13:15 Adult Sepsis Screening: Accepted Exclusions- Patient is already in the Sepsis Protocol. pml 13:49 General: to CT without complaints. returned to room, resps unlabored, rapid, sinus pml rhythm on monitor. remains in Trendelenburg position. IVF infusing freely. skin p/w/d. . 13:58 Respiratory: Breath sounds are diminished in left posterior lower lobe and right pml posterior lower lobe MD River aware, continue IVF. 14:28 General: Appears in no apparent distress, Behavior is appropriate for age, cooperative. pml Pain: Location: back and left lower quadrant and right lower quadrant. Neurological: Level of Consciousness is awake, alert, Oriented to person, place, time. Cardiovascular: Capillary refill < 3 seconds Rhythm is sinus tachycardia No ectopy. Derm: Skin is pink, warm & dry. 15:30 General: resting on stretcher, resps easy and unlabored, skin p/w/d. sinus rhythm on pml monitor. gastelum to gravity drainage with urine output. 16:27 General: Appears in no apparent distress, Behavior is appropriate for age, cooperative. pml Pain: Location: back. Neurological: Level of Consciousness is awake, alert, Oriented to person, place, time. Cardiovascular: Capillary refill < 3 seconds Rhythm is sinus rhythm No ectopy. Derm: Skin is pink, warm & dry. 18:03 General: Appears in no apparent distress, Behavior is appropriate for age, cooperative. dy Pain: Location: back and left lower quadrant and right lower quadrant Pain currently is 5 out of 10 on a pain scale. Neurological: Level of Consciousness is awake, alert, Oriented to person, place, time. Cardiovascular: Capillary refill < 3 seconds Rhythm is sinus rhythm No ectopy. Respiratory: Airway is patent Respiratory effort is even, unlabored, Respiratory pattern is regular, symmetrical. GI: Abdomen is non- distended. Derm: Skin is pink, warm & dry. Vital Signs: 12:18 BP 77 / 59 RA Sitting (auto/lg); Pulse 126; Resp 24; Temp 98.7(O); Pulse Ox 96% on R/A; elp Weight 84.82 kg (R); Height 5 ft. 5 in. (165.10 cm) (R); 12:18 BP 49 / 41 RA Sitting (auto/lg); elp 12:21 BP 64 / 49 LA Sitting (auto/reg); elp 12:24 BP 70 / 43 (auto/); pml 12:27 Pulse 122 MON; Pulse Ox 93% ; pml 12:29 BP 70 / 52 LA Supine (man/lg); pml 12:30 Pulse 119 MON; Pulse Ox 93% ; pml 12:30 BP 75 / 45 (auto/); pml 12:40 Pulse 110 MON; Pulse Ox 92% ; pml 12:40 BP 80 / 51 (auto/); pml 12:50 Pulse 107 MON; Pulse Ox 86% ; pml 12:50 BP 86 / 62 (auto/); pml 13:00 Pulse 105 MON; Pulse Ox 97% ; pml 13:00 BP 94 / 53 (auto/); pml 13:10 Pulse 102 MON; Pulse Ox 100% ; pml 13:10 BP 82 / 44 (auto/); pml 13:20 Pulse 102 MON; Pulse Ox 98% ; pml 13:20 BP 76 / 46 (auto/); pml 13:30 Pulse 102 MON; Pulse Ox 98% ; pml 13:30 BP 85 / 54 (auto/); pml 13:33 Pulse 103 MON; Pulse Ox 97% ; pml 13:40 BP 87 / 52 (auto/); pml 13:50 Pulse 107 MON; Pulse Ox 98% ; pml 13:50 BP 87 / 50 (auto/); pml 14:00 Pulse 105 MON; Pulse Ox 97% ; pml 14:00 BP 85 / 52 (auto/); pml 14:10 Pulse 106 MON; Pulse Ox 97% ; pml 14:10 BP 92 / 54 (auto/); pml 14:16 BP 72 / 48; pml 14:20 Pulse 104 MON; Pulse Ox 97% ; pml 14:20 BP 93 / 55 (auto/); pml 14:30 Pulse 101 MON; Pulse Ox 97% ; pml 14:30 BP 90 / 52 (auto/); pml 14:40 Pulse 99 MON; Pulse Ox 96% ; pml 14:40 BP 90 / 51 (auto/); pml 14:50 Pulse 100 MON; Pulse Ox 95% ; pml 14:50 BP 95 / 55 (auto/); pml 15:10 Pulse 98 MON; Pulse Ox 95% ; pml 15:10 BP 98 / 55 (auto/); pml 15:20 Pulse 98 MON; Pulse Ox 94% ; pml 15:20 BP 103 / 57 (auto/); pml 15:30 Pulse 100 MON; Pulse Ox 95% ; pml 15:30 BP 100 / 56 (auto/); pml 15:38 Temp 98.2; pml 15:40 Pulse 101 MON; Pulse Ox 96% ; pml 15:40 BP 87 / 53 (auto/); pml 15:50 Pulse 99 MON; Pulse Ox 95% ; pml 15:50 BP 89 / 53 (auto/); pml 16:00 Pulse 98 MON; Pulse Ox 97% ; pml 16:00 BP 81 / 47 (auto/); pml 16:10 Pulse 98 MON; Pulse Ox 95% ; pml 16:10 BP 92 / 54 (auto/); pml 16:20 Pulse 98 MON; Pulse Ox 97% ; pml 16:20 BP 94 / 52 (auto/); pml 16:30 Pulse 96 MON; Pulse Ox 97% ; dy 16:30 BP 92 / 50 (auto/); dy 16:40 Pulse 97 MON; Pulse Ox 97% ; dy 16:40 BP 97 / 55 (auto/); dy 16:50 BP 100 / 55 (auto/); dy 16:50 Pulse 97 MON; Pulse Ox 95% ; dy 17:00 Pulse 95 MON; Pulse Ox 96% ; dy 17:00 BP 96 / 55 (auto/); dy 17:10 Pulse 95 MON; Pulse Ox 96% ; dy 17:10 BP 90 / 54 (auto/); dy 17:20 Pulse 96 MON; Pulse Ox 97% ; dy 17:20 BP 94 / 51 (auto/); dy 17:30 Pulse 97 MON; Pulse Ox 97% ; dy 17:30 BP 92 / 46 (auto/); dy 17:40 Pulse 96 MON; Pulse Ox 98% ; dy 17:40 BP 95 / 51 (auto/); dy 17:50 Pulse 96 MON; Pulse Ox 94% ; dy 17:50 BP 99 / 57 (auto/); dy 18:05 BP 94 / 57; Pulse 94; Resp 20; Temp 98.3; Pulse Ox 99% on R/A; dy 12:18 Body Mass Index 31.12 (84.82 kg, 165.10 cm) elp Vitals: 12:18 Log In Time: November 27, 2016 at 12:15. RN notified that patient meets Red Flag elp criteria. ED Course: 12:18 Patient visited by Kailey Humphries PCA. elp 12:18 Khadijah Thomas is Private Physician. elp 12:18 Patient moved to Waiting elp 12:20 Patient visited by Kailey Humphries PCA. elp 12:22 Allison Andrews RN is Primary Nurse. elp 12:22 Patient visited by Kailey Humphries PCA. elp 12:22 Patient moved to 3 elp 12:23 Adolph River MD is Attending Physician. pc 12:25 Triage Initiated mlb1 12:29 Patient visited by Power Hirsch RN. mlb1 12:29 The patient / caregiver is instructed regarding the plan of care and ED course. Patient pml has correct armband on for positive identification. Placed in gown. Bed in low position. Call light in reach. Side rails up X2. property assessment monitor on. Pulse ox on. NIBP on. 12:29 Inserted peripheral IV: 18gauge IV in right antecubital area and blood collected. pml Patient tolerated the procedure well. by NICHELLE Wooten. 12:29 Inserted peripheral IV: 18gauge IV in left antecubital area and blood collected. pml Patient tolerated the procedure well. by NICHELLE Wooten. 12:33 Patient visited by Allison Andrews RN. pml 12:43 Patient visited by Adolph River MD. pc 12:46 Patient visited by Allison Andrews RN. pml 12:50 Gastelum cath inserted 16 Fr. Balloon inflated. To gravity drainage. returned no urine pml return, bladder scanned for >15mL urine. . Patient tolerated well. 13:01 Patient visited by Allison Andrews RN. pml 13:07 EKG done. (by ED staff). Reviewed by Adolph River MD. rn1 13:27 O2 via nasal cannula \T\ 2L/min. pml 13:28 Patient visited by Allison Andrews RN. pml 13:50 Patient visited by Allison Andrews RN. pml 14:16 Patient visited by Allison Andrews RN. pml 14:29 Patient visited by Allison Andrews RN. pml 14:56 Mani Robles is Hospitalizing Provider. pc 14:59 Chest, 1 View Returned. EDMS 14:59 CT ABD & PELVIS: No Contrast Returned. EDMS 15:21 [facility] Payment Agreement was scanned into [employer] and attached to record. mm15 15:59 Patient visited by Allison Andrews,RN. pml 16:29 Patient visited by Allison Andrews,NICHELLE. pml 18:05 No procedures done that require assistance. dy Administered Medications: 12:40 Drug: NS 0.9% 1000 ml [sodium chloride 0.9 % injection syringe] Route: IV; Rate: bolus; pml Site: left antecubital; 13:16 Follow up: IV Status: Completed infusion; IV Intake: 1000ml pml 12:40 Drug: Ondansetron 4 mg [ondansetron HCl 2 mg/mL intravenous solution (2 mL)] Route: pml IVP; Site: left antecubital; 13:26 Drug: NS 0.9% (Sepsis- hypotension or lactate >4mmol/L, 30ml/kg) [id number] mL Route: IV; pml Rate: bolus; Site: left antecubital; 14:30 Follow up: IV Status: Completed infusion; IV Intake: 2500ml dy 13:30 CANCELLED (Other Intervention Used): Piperacillin-Tazobactam 0.35 grams IVPB once over pc 30 mins; dilute in 50mL of NS or D5W. Renal dosed for GFR 33 13:49 Drug: Piperacillin-Tazobactam 3.375 grams [piperacillin-tazobactam 3.375 gram pml intravenous solution] Route: IVPB; Infused Over: 30 mins; Site: left antecubital; 14:50 Follow up: IV Status: Completed infusion dy 14:42 Drug: fentaNYL (PF) 12.5 mcg [fentanyl (PF) 50 mcg/mL injection solution (0.25 mL)] pml Route: IVP; Site: right antecubital; 15:00 Follow up: Response: Confirmed pt not driving.; Pain is decreased dy Intake: 13:16 IV: 1000.00ml; Total: 1000.00ml. pml 14:30 IV: 2500.00ml; Total: 3500.00ml. dy Output: 16:07 Urine: 250.00ml (Gastelum); Total: 250.00ml. pml Order Results: Lab Order: CBC with Diff; SPEC'M 11/27/16 12:29 Test: WHITE BLOOD COUNT; Value: 19.3; Range: 4.0-10.0; Abnormal: Above high normal; Units: K/mm3; Status: F Test: RED BLOOD COUNT; Value: 4.26; Range: 4.00-5.40; Units: M/mm3; Status: F Test: HEMOGLOBIN; Value: 12.6; Range: 12.0-16.0; Units: g/dl; Status: F Test: HEMATOCRIT; Value: 40.5; Range: 36.0-47.0; Units: %; Status: F Test: MEAN CORPUSCULAR VOLUME; Value: 95.1; Range: 80.0-96.0; Units: fl; Status: F Test: MEAN CORPUSCULAR HEMOGLOBIN; Value: 29.6; Range: 27.0-33.0; Units: pg; Status: F Test: MEAN CORPUSCULAR HGB CONC; Value: 31.1; Range: 32.0-36.5; Abnormal: Below low normal; Units: g/dl; Status: F Test: RED CELL DISTRIBUTION WIDTH; Value: 13.6; Range: 11.5-14.5; Units: %; Status: F Test: PLATELET COUNT, AUTOMATED; Value: 505; Range: 150-450; Abnormal: Above high normal; Units: k/mm3; Status: F Test: NEUTROPHILS %; Value: 79.5; Range: 36.0-66.0; Abnormal: Above high normal; Units: %; Status: F Test: LYMPH %; Value: 11.7; Range: 24.0-44.0; Abnormal: Below low normal; Units: %; Status: F Test: MONO %; Value: 6.4; Range: 0.0-5.0; Abnormal: Above high normal; Units: %; Status: F Test: EOS %; Value: 0.4; Range: 0.0-3.0; Units: %; Status: F Test: BASO %; Value: 0.5; Range: 0.0-1.0; Units: %; Status: F Test: LARGE UNSTAINED CELL %; Value: 1.5; Range: 0.0-4.0; Units: %; Status: F Test: NEUTROPHILS #; Value: 15.4; Range: 1.8-7.7; Abnormal: Above high normal; Units: K/mm3; Status: F Test: LYMPH #; Value: 2.3; Range: 1.5-4.5; Units: K/mm3; Status: F Test: MONO #; Value: 1.2; Range: 0.0-0.8; Abnormal: Above high normal; Units: K/mm3; Status: F Test: EOS #; Value: 0.1; Range: 0.0-0.50; Units: K/mm3; Status: F Test: BASO #; Value: 0.1; Range: 0.0-0.2; Units: K/mm3; Status: F Test: LARGE UNSTAINED CELL #; Value: 0.3; Range: 0.0-0.4; Units: K/mm3; Status: F Lab Order: MED Profile; [facility] 11/27/16 12:29 Test: GLUCOSE, FASTING; Value: 248; Range: 80-110; Abnormal: Above high normal; Units: MG/DL; Status: F Test: BLOOD UREA NITROGEN; Value: 35; Range: 7-18; Abnormal: Above high normal; Units: MG/DL; Status: F Test: CREATININE FOR GFR; Value: 1.65; Range: 0.55-1.02; Abnormal: Above high normal; Units: MG/DL; Status: F Test: GLOMERULAR FILTRATION RATE; Value: 33.7; Range: >45; Abnormal: Below low normal; Status: F Test: SODIUM LEVEL; Value: 136; Range: 136-145; Units: MEQ/L; Status: F Test: POTASSIUM SERUM; Value: 4.1; Range: 3.5-5.1; Units: MEQ/L; Status: F Test: CHLORIDE LEVEL; Value: 94; Range: 98-107; Abnormal: Below low normal; Units: MEQ/L; Status: F Test: CARBON DIOXIDE LEVEL; Value: 30; Range: 21-32; Units: MEQ/L; Status: F Test: ANION GAP; Value: 12; Range: 8-16; Units: MEQ/L; Status: F Test: CALCIUM LEVEL; Value: 9.5; Range: 8.8-10.2; Units: MG/DL; Status: F Test Note: ; Units are mL/min/1.73 m2 Chronic Kidney Disease Staging per NKF: Stage I & II GFR >=60 Normal to Mildly Decreased Stage III GFR 30-59 Moderately Decreased Stage IV GFR 15-29 Severely Decreased Stage V GFR <15 Very Little GFR Left ESRD GFR <15 on [employer] Lab Order: Liver Profile; [facility] 11/27/16 12:29 Test: AST/SGOT; Value: 14; Range: 15-37; Abnormal: Below low normal; Units: U/L; Status: F Test: ALT/SGPT; Value: 23; Range: 12-78; Units: U/L; Status: F Test: ALKALINE PHOSPHATASE; Value: 80; Range: 45-117; Units: U/L; Status: F Test: BILIRUBIN,TOTAL; Value: 0.3; Range: 0.2-1.0; Units: MG/DL; Status: F Test: BILIRUBIN,DIRECT; Value: < 0.1; Range: 0.0-0.2; Units: MG/DL; Status: F Test: TOTAL PROTEIN; Value: 6.6; Range: 6.4-8.2; Units: GM/DL; Status: F Test: ALBUMIN; Value: 3.5; Range: 3.2-5.2; Units: GM/DL; Status: F Test: ALBUMIN/GLOBULIN RATIO; Value: 1.13; Range: 1.00-1.93; Status: F Lab Order: Lactic Acid (Richards tube on ice); [facility] 11/27/16 12:29 Test: LACTIC ACID SEPSIS PROTOCOL; Value: 2.9; Range: 0.4-2.0; Abnormal: Above upper panic limits; Units: MMOL/L; Status: F Lab Order: Venous Blood Gas (large pea green tube on ice); [facility] 11/27/16 12:29 Test: VENOUS PH; Value: 7.384; Range: 7.330-7.430; Units: UNITS; Status: F Test: VENOUS PARTIAL PRESSURE CO2; Value: 46.3; Range: 38.0-50.0; Units: mmHg; Status: F Test: VENOUS PARTIAL PRESSURE O2; Value: 52.4; Range: 30.0-50.0; Abnormal: Above high normal; Units: mmHg; Status: F Test: VENOUS TOTAL CO2; Value: 28.4; Range: 24.0-28.0; Abnormal: Above high normal; Units: MEQ/L; Status: F Test: VENOUS HCO3; Value: 27.0; Range: 23.0-27.0; Units: MEQ/L; Status: F Test: VENOUS BASE EXCESS; Value: 1.4; Range: -2.0-2.0; Status: F Test: VENOUS STANDARD HCO3; Value: 25.5; Units: MEQ/L; Status: F Test: VENOUS O2 SATURATION; Value: 86.7; Range: 60.0-80.0; Abnormal: Above high normal; Units: %; Status: F Lab Order: CIP; [facility] 11/27/16 12:29 Test: CPK CREATINE PHOSPHOKINASE; Value: 39; Range: 26-192; Units: U/L; Status: F Test: CK-MB VALUE MASS; Value: 3.0; Range: 0.0-3.6; Units: NG/ML; Status: F Test: MB/CK RELATIVE INDEX; Value: 7.69; Range: < OR =4; Abnormal: Above high normal; Status: F Test Note: ; DIAGNOSIS CRITERIA MMB ng/ml Relative Index (RI) NON-AMI < or = 5 N/A RICHARDS ZONE > 5 < or = 4 AMI > 5 > 4 Lab Order: Troponin; [facility] 11/27/16 12:29 Test: TROPONIN I; Value: < 0.02; Range: < 0.10; Units: NG/ML; Status: F Test Note: ; Troponin I Reference Interval for [email or web address] LOCI: 99th Percentile= 0.00-0.045 ng/ml Risk Stratification: <= 0.10 ng/ml Decreased Risk for Adverse Clinical Events. 0.10-1.50 ng/ml Increased Risk for Adverse Clinical Events. Evaluation of additional criterion and/or repeat testing in 2-6 hours is suggested to rule out myocardial damage. >= 1.50 ng/ml Indicative of Myocardial Injury. Lab Order: Pt & Aptt; [facility] 11/27/16 12:59 Test: PROTHROMBIN TIME; Value: 14.6; Range: 12.3-14.5; Abnormal: Above high normal; Units: SECONDS; Status: F Test: INR; Value: 1.13; Status: F Test: PARTIAL THROMBOPLASTIN TIME; Value: 26.2; Range: 26.6-37.1; Abnormal: Below low normal; Units: SECONDS; Status: F Test Note: ; THERAPUTIC HUMAN INR VALUES INDICATIONS NORMAL RANGES PROPHYLAXIS/TREATMENT OF: VENOUS THROMBOSIS 2.0-3.0 PULMONARY EMBOLISM 2.0-3.0 PREVENTION OF SYSTEMIC EMBOLISM FROM: TISSUE HEART VALVES 2.0-3.0 ACUTE MYOCARDIAL INFARCTION 2.0-3.0 VALVULAR HEART DISEASE 2.0-3.0 ATRIAL FIBRILLATION 2.0-3.0 MECHANICAL VALVES(HIGH RISK) 2.5-3.5 RECURRENT MYOCARDIAL INFARCTION 2.5-3.5 Lab Order: Type & Screen; [facility] 11/27/16 14:07 Test: BLOOD TYPE; Value: B POS; Status: F Test: AB SCREEN (INDIRECT DONAL)VIS; Value: NEGATIVE; Status: F Lab Order: Urinalysis; [facility] 11/27/16 15:36 Test: APPEARANCE, URINE; Value: CLEAR; Range: CLEAR; Status: F Test: COLOR, URINE; Value: MALGORZATA; Range: YELLOW; Status: F Test: PH,URINE; Value: 5.0; Range: 5.0-9.0; Units: UNITS; Status: F Test: SPECIFIC GRAVITY URINE AUTO; Value: 1.008; Range: 1.002-1.035; Status: F Test: PROTEIN, URINE AUTO; Value: NEGATIVE; Range: NEGATIVE; Units: mg/dL; Status: F Test: GLUCOSE, URINE (UA) AUTO; Value: NEGATIVE; Range: NEGATIVE; Units: mg/dL; Status: F Test: KETONE, URINE AUTO; Value: NEGATIVE; Range: NEGATIVE; Units: mg/dL; Status: F Test: UROBILINOGEN, URINE AUTO; Value: 0.2; Range: 0.0-2.0; Units: mg/dL; Status: F Test: BILIRUBIN, URINE AUTO; Value: NEGATIVE; Range: NEGATIVE; Status: F Test: NITRITE, URINE AUTO; Value: NEGATIVE; Range: NEGATIVE; Status: F Test: LEUKOCYTE ESTERASE, URINE AUTO; Value: 3+; Range: NEGATIVE; Abnormal: Above high normal; Status: F Test: BLOOD, URINE BLOOD; Value: 2+; Range: NEGATIVE; Abnormal: Above high normal; Status: F Test: WBC, URINE AUTO; Value: 80; Range: 0-3; Abnormal: Above high normal; Units: /HPF; Status: F Test: RBC, URINE AUTO; Value: 27; Range: 0-3; Abnormal: Above high normal; Units: /HPF; Status: F Test: BACTERIA, URINE AUTO; Value: 1+; Range: NEGATIVE; Abnormal: Above high normal; Status: F Test: SQUAMOUS EPITHELIAL CELL UR AU; Value: 0; Range: 0-6; Units: /HPF; Status: F Test: MUCUS, URINE; Value: SMALL; Range: NEGATIVE; Status: F Test: HYALINE CAST, URINE AUTO; Value: 0; Range: 0-1; Units: /LPF; Status: F Test: AMORPHOUS SEDIMENT; Value: SMALL; Range: NEGATIVE; Abnormal: Above high normal; Status: F Lab Order: AMYLASE; SPEC'M 11/27/16 12:29 Test: AMYLASE; Value: 91; Range: 25-115; Units: U/L; Status: F Lab Order: C REACTIVE PROTEIN QUANTITATIV; SPEC'M 11/27/16 12:29 Test: C REACTIVE PROTEIN QUANTITATIV; Value: 1.77; Range: 0.00-0.30; Abnormal: Above high normal; Units: MG/DL; Status: F Radiology Order: Chest, 1 View Test: Chest, 1 View REASON FOR EXAMINATION: hypotension; AP PORTABLE CHEST: 11/27/2016.; ; Clinical history: Hypotension.; ; Comparison: 10/19/2016, 08/28/2016.; ; Findings: Lungs are hyperinflated with somewhat flattened diaphragms. No dense; consolidation or definite effusion. No parenchymal mass. Heart mildly enlarged.; There is mild venous hypertension without pulmonary edema, pleural effusion or; definite infiltrate. There is no widening of the mediastinum. Airway intact.; Aorta normal.; ; Impression:; ; 1. Hyperinflation and some basilar fibrotic change with mild cardiomegaly,; venous hypertension but no cassidy edema. I see no dense consolidation or; effusion.; ; ; Signed by; Cal Kirkpatrick MD 11/27/2016 03:12 P; Radiology Order: CT ABD & PELVIS: No Contrast Test: CT ABD & PELVIS: No Contrast REASON FOR EXAMINATION: sepsis, ?diverticulitis; CT ABDOMEN AND PELVIS WITHOUT CONTRAST: 11/27/2016.; ; Clinical history: Sepsis, possible diverticulitis.; ; Comparison: Noncontrast CT 06/02/2016.; ; Findings:; ; Abdomen: The noncontrast images show lung bases clear without effusion or; infiltrate. Heart is mildly enlarged. No pericardial thickening or effusion and; no hiatal hernia. There is hepatomegaly with at least an 18 cm vertical diameter; of the liver in the right midclavicular line. Left hepatic lobe also mildly; prominent. There is no splenomegaly, focal hepatic or splenic lesion nor; intrahepatic biliary dilatation. Gallbladder shows no calcified stone or mass.; Pancreas shows no mass, ductal dilatation or inflammatory change. Adrenal glands; grossly intact with slight thickening of limbs suggesting adrenal hyperplasia.; The right kidney showed no hydronephrosis, stone or mass. The left kidney shows; a staghorn calculus in the interpolar and lower pole region measuring up to 4.6 x; 2.4 x 2.1 cm in its greatest diameter, it has a dumbbell shape with a larger; component at that renal sinus and hilus. Some mild hydronephrosis in the upper; pole. The ureter on both sides is without dilatation or stone. No ureteral; displacement or periureteral inflammatory change. The aorta has atherosclerotic; calcifications without aneurysm. There are small periaortic and mesenteric nodes; not felt to be definite pathologic small bowel loops were intact. The colon show; of the right colon flexures and transverse colon intact. The proximal left colon; unremarkable. Distal left colon shows increasingly severe diverticulosis similar; to previous study. I see no free air or perforation in the abdomen or pelvis on; lung window review of all CT slices. The bone windows show lumbar and lower; thoracic spine without compression deformity. There is some minor hypertrophic; facet changes. Visualized ribs intact.; ; CT pelvis: Hips, SI joints, sacrum, iliac wings were intact. There are old; post-traumatic changes of the symphysis pubis and superior pubic ramus on the; right. The distal ureters are without dilatation or stone. Uterus tilted; towards the left but not enlarged. Gastelum catheter balloon is seen inflated in; the bladder with the bladder empty. No pelvic mass or adenopathy. The distal; left colon and sigmoid show extensive and severe diverticulosis, it is difficult; to entirely exclude some degree of diverticulitis and I do suspect it. Small; bowel loops in the pelvis unremarkable. Appendix is seen and normal. That; extends medially and upward from its origin near the cecal tip. No inguinal; hernia or adenopathy. Small midline ventral hernia in the suprapubic region.; ; No other findings.; ; Impression:; ; 1. Staghorn calculus in the left kidney collecting system as on the previous; study it is dumbbell shaped larger at the renal sinus and hilus and up to 4.6 x; 2.4 x 2.1 cm. Some hydronephrosis of the upper pole. No other stones,; hydroureter, ureteral stone or right renal calculus or hydro. This could; certainly be a cause for sepsis and UTI.; ; 2. Severe distal left colonic and sigmoid diverticulosis. There may be some; mild diverticulitis in the distal left colon and proximal sigmoid. No; perforation, abscess or free air, however.; ; 3. Small ventral hernia midline suprapubic region as before. A small knuckle of; small bowel loops.; ; 4. Hepatomegaly without focal hepatic, splenic, pancreatic or adrenal acute; finding. No other significant or acute finding.; ; ; Signed by; Cal Kirkpatrick MD 11/27/2016 03:13 P; Outcome: 14:56 Decision to Hospitalize by Provider. pc 18:05 Discharge Assessment: Patient awake, alert and oriented x 3. No cognitive and/or dy functional deficits noted. Patient verbalized understanding of disposition instructions. patient administered narcotics - no. The following High Risk Discharge criteria are identified: None. Admitted to ICU accompanied by nurse, accompanied by tech, via stretcher, on monitor, with chart. Condition: improved. CT Study completed. Property :Personal belongings accompany Pt. 18:07 Patient left the ED. dy Signatures: Dispatcher [employer] EDMS Adolph River MD MD pc Youngs, David RN Power Gross RN RN mlAllison Talbert,NICHELLE RN [place] mm15 Kailey Humphries, SHANTA COOKER CASING daviep Crzu Giron rn1 Corrections: (The following items were deleted from the chart) 12:22 12:21 BP 64 / 49; elp elp 12:45 12:28 Allergies: no known allergies; mlb1 pml 12:45 12:28 Home Meds: Cipro 500 mg Oral tab 1 tab every 12 hours; mlb1 pml 12:45 12:28 Home Meds: prednisone 5 mg Oral TbEC three times a day; mlb1 pml 12:45 12:28 Home Meds: Xanax 1 mg Oral tab four times a day; mlb1 pml 16: 14:30 General: resting on stretcher, resps easy and unlabored, skin p/w/d. sinus rhythm pml on monitor. gastelum to gravity drainage with urine output. pml MTDD
--- NOTE | 2016-11-27 18:07 | EDDOCDS ---
Physician Documentation [facility] Name: Allison Weiss Age: 61 yrs Sex: Female : 1955 Arrival Date: 11/27/2016 Time: 12:17 Bed 3 Private MD: Khadijah Thomas Disposition: 11/27 14:52 Critical Care:. pc Disposition: 11/27/16 14:56 Hospitalization ordered by Mani Robles for Inpatient Admission. Preliminary diagnosis are Sepsis, unspecified organism, Discitis, unspecified, lumbar region - suspected, Calculus of kidney - staghorn, left without significant changes from prior CTs, Diverticulosis of large intestine without perforation or abscess without bleeding. - Bed requested for M ICU. - Status is Inpatient Admission. dy - Condition is Stable. - Problem is new. - Symptoms have improved. HPI: 12:58 This 61 yrs old Female presents to ER via Walkin/Carried/Asstd with pc complaints of Nausea/Vomiting, Abdominal Pain. 12:58 The history is obtained from the patient. She presented 1 week ago with n/v, lower pc abdominal pain and hypotension, was diagnosed with a UTI and started on ABX and IVF. She has continued to have abdominal pain, n/v. She felt she was constipated because she could not have a bowel movement for 3 days so she took Miralax, which has caused watery stooling. She denies any fevers or chills. She complains of back pain. At their worst, the symptoms were severe. In the emergency department, the symptoms are unchanged. The patient has not experienced similar symptoms in the past. The patient has been recently been admitted at [facility], was discharged last month, for sepsis. Historical: - Allergies: no known allergies; - Home Meds: 1. Carafate 1 gram Oral tab three times a day 2. furosemide 40 mg Oral tab once daily 3. hydrocodone-acetaminophen 5-325 mg Oral tab every 8 hours as needed 4. lisinopril 10 mg Oral tab 1 tab once daily 5. metformin 500 mg Oral tab 2 tabs 2 times per day 6. Oxygen 1.5 liters at night as needed 7. potassium chloride 20 mEq Oral TbER once daily 8. Flagyl 500 mg Oral tab 1 tab 2 times per day 9. Prednisone Oral dose pack 10. Keflex 500 mg Oral cap 1 cap every 6 hours 11. Zofran (as hydrochloride) 4 mg Oral tab 4 mg every 8 hours 12. hydroxyzine HCl 25 mg Oral tab 1 tab 3 times per day 13. alprazolam 1 mg Oral tab 1 tab 3 times per day 14. Sertraline 50 mg daily - PMHx: CHF; COPD; Diabetes - NIDDM: controlled; Diverticulosis; - PSHx: cyst removed leg; - Social history: Smoking status: Patient states former smoker of tobacco. No barriers to communication noted, The patient speaks fluent Indonesian, Speaks appropriately for age. - Family history: Not pertinent. - : The pt / caregiver states he / she is not on anticoagulants. Home medication list is obtained from the patient. - Exposure Risk Screening:: None identified. - Immunization history:: All immunizations up-to-date. - Social history:: the patient is a former smoker, the patient does not drink alcohol. ROS: 13:10 All systems are negative except as listed. pc Exam: 13:10 General Appearance: alert, the patient is in mild distress, despite a SBP of 60-75, she pc awake alert and joking with staff. 13:10 EENT: normal eye inspection, ears, nose and throat normal, pharynx normal, mucous membranes moist 13:10 Neck: The exam reveals no acute abnormalities. ROM is normal and painless. No nuchal rigidity is noted.. 13:10 Respiratory: normal breath sounds, chest non-tender, Respirations/effort: tachypnea. 13:10 CVS: regular rhythm, normal S1 and S2, no murmurs, strong peripheral pulses, normal capillary refill, the patient is tachycardic, at 110 bpm. 13:10 Abdomen: soft, no organomegaly, severe tenderness in the right lower quadrant and left lower quadrant, with rebound, involuntary guarding is elicited in the right lower quadrant and left lower quadrant, bowel sounds diminished. 13:10 Back: normal inspection, Pain is noted in the lumbar area, over L2-4. 13:10 Skin: skin color is normal, warm, dry, the skin turgor is poor. 13:10 Extremities: The extremities have a grossly normal appearance, are non-tender, without acute ROM abnormalities. 13:10 Neuro: oriented x 3, cranial nerves normal as tested, no motor deficits, no sensory deficits. 13:10 Psych: normal mood. Vital Signs: 12:18 BP 77 / 59 RA Sitting (auto/lg); Pulse 126; Resp 24; Temp 98.7(O); Pulse Ox 96% on R/A; elp Weight 84.82 kg / 187 lbs (R); Height 5 ft. 5 in. (165.10 cm) (R); 12:18 BP 49 / 41 RA Sitting (auto/lg); elp 12:21 BP 64 / 49 LA Sitting (auto/reg); elp 12:24 BP 70 / 43 (auto/); pml 12:27 Pulse 122 MON; Pulse Ox 93% ; pml 12:29 BP 70 / 52 LA Supine (man/lg); pml 12:30 Pulse 119 MON; Pulse Ox 93% ; pml 12:30 BP 75 / 45 (auto/); pml 12:40 Pulse 110 MON; Pulse Ox 92% ; pml 12:40 BP 80 / 51 (auto/); pml 12:50 Pulse 107 MON; Pulse Ox 86% ; pml 12:50 BP 86 / 62 (auto/); pml 13:00 Pulse 105 MON; Pulse Ox 97% ; pml 13:00 BP 94 / 53 (auto/); pml 13:10 Pulse 102 MON; Pulse Ox 100% ; pml 13:10 BP 82 / 44 (auto/); pml 13:20 Pulse 102 MON; Pulse Ox 98% ; pml 13:20 BP 76 / 46 (auto/); pml 13:30 Pulse 102 MON; Pulse Ox 98% ; pml 13:30 BP 85 / 54 (auto/); pml 13:33 Pulse 103 MON; Pulse Ox 97% ; pml 13:40 BP 87 / 52 (auto/); pml 13:50 Pulse 107 MON; Pulse Ox 98% ; pml 13:50 BP 87 / 50 (auto/); pml 14:00 Pulse 105 MON; Pulse Ox 97% ; pml 14:00 BP 85 / 52 (auto/); pml 14:10 Pulse 106 MON; Pulse Ox 97% ; pml 14:10 BP 92 / 54 (auto/); pml 14:16 BP 72 / 48; pml 14:20 Pulse 104 MON; Pulse Ox 97% ; pml 14:20 BP 93 / 55 (auto/); pml 14:30 Pulse 101 MON; Pulse Ox 97% ; pml 14:30 BP 90 / 52 (auto/); pml 14:40 Pulse 99 MON; Pulse Ox 96% ; pml 14:40 BP 90 / 51 (auto/); pml 14:50 Pulse 100 MON; Pulse Ox 95% ; pml 14:50 BP 95 / 55 (auto/); pml 15:10 Pulse 98 MON; Pulse Ox 95% ; pml 15:10 BP 98 / 55 (auto/); pml 15:20 Pulse 98 MON; Pulse Ox 94% ; pml 15:20 BP 103 / 57 (auto/); pml 15:30 Pulse 100 MON; Pulse Ox 95% ; pml 15:30 BP 100 / 56 (auto/); pml 15:38 Temp 98.2; pml 15:40 Pulse 101 MON; Pulse Ox 96% ; pml 15:40 BP 87 / 53 (auto/); pml 15:50 Pulse 99 MON; Pulse Ox 95% ; pml 15:50 BP 89 / 53 (auto/); pml 16:00 Pulse 98 MON; Pulse Ox 97% ; pml 16:00 BP 81 / 47 (auto/); pml 16:10 Pulse 98 MON; Pulse Ox 95% ; pml 16:10 BP 92 / 54 (auto/); pml 16:20 Pulse 98 MON; Pulse Ox 97% ; pml 16:20 BP 94 / 52 (auto/); pml 16:30 Pulse 96 MON; Pulse Ox 97% ; dy 16:30 BP 92 / 50 (auto/); dy 16:40 Pulse 97 MON; Pulse Ox 97% ; dy 16:40 BP 97 / 55 (auto/); dy 16:50 BP 100 / 55 (auto/); dy 16:50 Pulse 97 MON; Pulse Ox 95% ; dy 17:00 Pulse 95 MON; Pulse Ox 96% ; dy 17:00 BP 96 / 55 (auto/); dy 17:10 Pulse 95 MON; Pulse Ox 96% ; dy 17:10 BP 90 / 54 (auto/); dy 17:20 Pulse 96 MON; Pulse Ox 97% ; dy 17:20 BP 94 / 51 (auto/); dy 17:30 Pulse 97 MON; Pulse Ox 97% ; dy 17:30 BP 92 / 46 (auto/); dy 17:40 Pulse 96 MON; Pulse Ox 98% ; dy 17:40 BP 95 / 51 (auto/); dy 17:50 Pulse 96 MON; Pulse Ox 94% ; dy 17:50 BP 99 / 57 (auto/); dy 18:05 BP 94 / 57; Pulse 94; Resp 20; Temp 98.3; Pulse Ox 99% on R/A; dy 12:18 Body Mass Index 31.12 (84.82 kg, 165.10 cm) elp MDM: 12:39 IV Saline Lock x 2 ordered. pc 12:39 Sawmill Tally Clerk/Pulse Ox/q 15 min VS ordered. pc 12:39 NS 0.9% 1000 ml IV at bolus once ordered. pc 12:39 Ondansetron 4 mg IVP once ordered. pc 12:40 CBC with Diff Ordered. EDMS 12:40 MED Profile Ordered. EDMS 12:40 Liver Profile Ordered. EDMS 12:40 Lactic Acid (Richards tube on ice) Ordered. EDMS 12:40 Venous Blood Gas (large pea green tube on ice) Ordered. EDMS 12:41 Manuel ordered. pc 12:41 ECG WITH READING ER PHYS+CARDIAG ordered. EDMS 12:42 CIP Ordered. EDMS 12:42 Troponin Ordered. EDMS 12:42 Pt & Aptt Ordered. EDMS 12:43 Chest, 1 View Ordered. EDMS 13:10 Differential Diagnosis: hypotension, dehydration, severe lower abdominal pain r/o pc diverticulitis with abscess or perforation, COPD. Plan: IVF, labs, imaging, meds. Test interpretation: EKG. 13:20 CBC with Diff Reviewed. pc 13:20 MED Profile Reviewed. pc 13:20 Liver Profile Reviewed. pc 13:20 Lactic Acid (Richards tube on ice) Reviewed. pc 13:20 Venous Blood Gas (large pea green tube on ice) Reviewed. pc 13:20 CIP Reviewed. pc 13:20 Pt & Aptt Reviewed. pc 13:20 Troponin Reviewed. pc 13:23 NS 0.9% (Sepsis- hypotension or lactate >4mmol/L, 30ml/kg) 2500 ml/kg IV at bolus once; pc Give in 500mL aliquots, assess for rales after each, inform provider ordered. 13:23 -Blood Culture (Adults Only), peripheral from different site, or from device/port/PICC pc etc. if present ordered. 13:23 Oxygen at 4L/Min NC or Home dosage ordered. pc 13:23 Intake and Output Hourly ordered. pc 13:24 -Blood Culture Ordered. EDMS 13:24 Urine Culture Ordered. EDMS 13:24 Type & Screen Ordered. EDMS 13:24 Urinalysis Ordered. EDMS 13:24 -Blood Culture (Adults Only), peripheral from different site, or from device/port/PICC deg etc. if present complete. 13:25 BLOOD CULTURES Ordered. EDMS 13:27 CT ABD & PELVIS: No Contrast Ordered. EDMS 13:31 Piperacillin-Tazobactam 3.375 grams IVPB once over 30 mins; dilute in 50mL of NS or pc D5W. Renal dosed for GFR 33 ordered. 13:33 Financial registration complete. mm15 13:33 AMYLASE Ordered. EDMS 13:33 C REACTIVE PROTEIN QUANTITATIV Ordered. EDMS 14:09 MED Profile Reviewed. pc 14:09 Liver Profile Reviewed. pc 14:09 C REACTIVE PROTEIN QUANTITATIV Reviewed. pc 14:09 AMYLASE Reviewed. pc 14:21 CT Spine, Lumbar W/o Contrast Ordered. EDMS 14:39 fentaNYL (PF) 12.5 mcg IVP once ordered. pc 14:46 Data reviewed: old medical records, vital signs, nurses notes, EKG(s), lab test pc results, all radiology studies and available results. Test interpretation: LAB - all labs as ordered have been reviewed, interpreted and considered in the overall management of the clinical presentation; X-RAY - interpreted by Radiologist and personally reviewed, 1 view chest no acute disease, interpreted by Radiologist and personally reviewed, Abdomen/Pelvis CT; unchanged large left renal staghorn calculus, extensive diverticulosis with minimal, if any, diverticulitis, other caro unremarkable. The patient has been re-examined and re-evaluated. The patient's symptoms have markedly improved after treatment, with her MAP 69, her pulse 100. Physician consultation: Dr. Mani Robles was contacted at 14:48, regarding admission, and will see patient in ED, shortly. 14:52 Physician consultation: Dr. Giancarlo Gomez regarding consult, and will see patient in inpatient room, if requested by Hospitalist service . Disposition: The historical points, examination findings, and any diagnostic results supporting the provided diagnosis, were discussed with the patient or legal guardian. The need for further work-up and/or treatment in the hospital was explained. 14:53 BED REQUEST+ADM ordered. EDMS 15:21 [facility] [place] was scanned into enavu and attached to record. mm15 16:01 PHYSICAL THERAPY EVAL & TREAT ordered. EDMS 16:02 Admission / Observation Status ordered. EDMS EC:10 Rate is 105 beats/min. Rhythm is regular, Sinus tachycardia. QRS [place] is Normal. [place] pc interval is normal. QRS interval is normal. QT interval is normal. No Q waves. T waves are Inverted in leads V1, V2. ST Segment is depressed in leads V3, V4, <1mm. Clinical impression: Sinus tachycardia, Nonspecific ST-T changes, and Incomplete RBBB. No change from previous ECG in August,. Administered Medications: 12:40 Drug: NS 0.9% 1000 ml [sodium chloride 0.9 % injection syringe] Route: IV; Rate: bolus; pml Site: left antecubital; 13:16 Follow up: IV Status: Completed infusion; IV Intake: 1000ml pml 12:40 Drug: Ondansetron 4 mg [ondansetron HCl 2 mg/mL intravenous solution (2 mL)] Route: pml IVP; Site: left antecubital; 13:26 Drug: NS 0.9% (Sepsis- hypotension or lactate >4mmol/L, 30ml/kg) [id number] mL Route: IV; pml Rate: bolus; Site: left antecubital; 14:30 Follow up: IV Status: Completed infusion; IV Intake: 2500ml dy 13:30 CANCELLED (Other Intervention Used): Piperacillin-Tazobactam 0.35 grams IVPB once over pc 30 mins; dilute in 50mL of NS or D5W. Renal dosed for GFR 33 13:49 Drug: Piperacillin-Tazobactam 3.375 grams [piperacillin-tazobactam 3.375 gram pml intravenous solution] Route: IVPB; Infused Over: 30 mins; Site: left antecubital; 14:50 Follow up: IV Status: Completed infusion dy 14:42 Drug: fentaNYL (PF) 12.5 mcg [fentanyl (PF) 50 mcg/mL injection solution (0.25 mL)] pml Route: IVP; Site: right antecubital; 15:00 Follow up: Response: Confirmed pt not driving.; Pain is decreased dy Critical Care Time: 14:52 Critical care time: Bedside Care: 35 minutes, Consultation: 20 minutes, Family pc Intervention: 25 minutes. Total time: 80 minutes Signatures: Dispatcher [employer] [facility] Adolph River MD MD pc Murray, Denise, Sash Sticker Unit deg Donn Rodriguez, RN RN dy Power Hirsch RN RN mlb1 Allison Andrews,RN RN pml [place] mm15 The chart was reviewed and I authenticate all verbal orders and agree with the evaluation and treatment provided.Corrections: (The following items were deleted from the chart) 12:45 12:28 Allergies: no known allergies; mlb1 pml 12:45 12:28 Home Meds: Cipro 500 mg Oral tab 1 tab every 12 hours; b1 pml :45 12:28 Home Meds: prednisone 5 mg Oral TbEC three times a day; mlb1 pml 12:45 12:28 Home Meds: Xanax 1 mg Oral tab four times a day; [facility] pml 13:30 13:30 Piperacillin-Tazobactam 0.35 grams IVPB once over 30 mins; dilute in 50mL of NS pc or D5W. Renal dosed for GFR 33 ordered. pc 13:35 13:24 AMYLASE+LAB ordered. EDMS EDMS 13:35 13:24 C REACTIVE PROTEIN QUANTITATIV+LAB ordered. EDMS EDMS 14:25 13:10 Back: normal inspection, pc pc Attachments: 15:21 [facility] Payment Agreement mm15 MTDD
--- NOTE | 2016-11-27 18:41 | PHACANCOPD ---
PHARMACY VANCOMYCIN DOSING Pt Demographics Demographics Patient Age:61 , Weight: , Gender: female Adjusted Body Weight Date: 11/27/16, Adjusted Body Weight: Kg Events Past 24 Hours Events Past 24 Hours: YES: Change in CrCl, NO: Dialysis, Diuretic Therapy, Elevation in WBC, Fever, Other, Pending Diagnostics, Pending Procedures Vancomycin Vancomycin indication: SEPSIS Vancomycin Target Ranges: 15-20 mcg/ml Vancomycin Load Y/N: Yes Load Dose Date Time Vancomycin Load Dose: 1000mg Date: 11/27 Time: ~19:00 Vancomycin Dose Date: 11/27/16. Current Vancomycin Dose: [1g IV Q12H @06] Intermittent Dosing?: No Labs Labs Item Value Date Time White Blood Count 19.3 K/mm3 H 11/27/16 1229 Creatinine 1.65 MG/DL H 11/27/16 1229 C-Reactive Protein, Quantitative 1.77 MG/DL H 11/27/16 1229 Lactic Acid (Sepsis) 2.9 MMOL/L *H 11/27/16 1229 Micro Microbiology 11/27/16 Blood Culture, Received Pending 11/27/16 Blood Culture, Received Pending 11/27/16 MRSA Screen, Received Pending 11/27/16 Urine Culture, Received Pending Creatinine Clearance Date:11/27/16. Creatinine Clearance: [~35 ml/min]. Assessment and Plan Maintaining Current Dose?: Yes Reason for dose change: No Dose Change Pharmacist Note Pharmacist Note Date: 11/27/16. Pharmacist note: pt has been started on Zosyn and Vancomycin for sepsis/UTI. She was last on vancomycin at our facility Aug 2016 with 1g q12h and I will resume similar dosing. Her baseline SCr appears to be ~0.7-0.9 mg/ dl. She does not have an apparent MRSA Hx. I will continue to monitor renal function and order a trough as necessary. Dre Christiansen Pharm.D. Nov 27, 2016 18:41
[2016-11-27] MEDS: NS 1,000 ML IV SCH ×2 (19:37→23:37)
[2016-11-27] MEDS: PANTOPRAZOLE 40MG INJ (PROTONIX) (C9113) IV SCH (19:37)
[2016-11-27] MEDS: PIPERACILLIN/TAZOBACTAM SOD 3.375 GM in D5W MINI-BAG PLUS 50 ML IV SCH (21:00)
[2016-11-27] MEDS: HEPARIN SOD (PORCINE) 5000 UNITS/ML VIAL SC SCH (22:01)
[2016-11-28] VITALS (19 sets, daily range): BP systolic 78–121; BP diastolic 45–69
[2016-11-28] MEDS: PIPERACILLIN/TAZOBACTAM SOD 3.375 GM in D5W MINI-BAG PLUS 50 ML IV SCH ×4 (02:00→20:01)
[2016-11-28 04:32] LABS: MEAN CORPUSCULAR HEMOGLOBIN 30.7 pg (27.0-33.0); MEAN CORPUSCULAR HGB CONC 32.2 g/dl (32.0-36.5); MEAN CORPUSCULAR VOLUME 95.3 fl (80.0-96.0); RED CELL DISTRIBUTION WIDTH 13.7 % (11.5-14.5); WHITE BLOOD COUNT 11.5 K/mm3 (4.0-10.0)
[2016-11-28 04:58] LABS: ALBUMIN 2.2 GM/DL (3.2-5.2); ALBUMIN/GLOBULIN RATIO 0.79 (1.00-1.93); ALKALINE PHOSPHATASE 52 U/L (45-117); ALT/SGPT 16 U/L (12-78); ANION GAP 8 MEQ/L (8-16); AST/SGOT 11 U/L (15-37); BILIRUBIN,TOTAL 0.2 MG/DL (0.2-1.0); BLOOD UREA NITROGEN 19 MG/DL (7-18); CALCIUM LEVEL 7.1 MG/DL (8.8-10.2); CARBON DIOXIDE LEVEL 26 MEQ/L (21-32); CHLORIDE LEVEL 110 MEQ/L (98-107); CREATININE FOR GFR 0.92 MG/DL (0.55-1.02); GLOMERULAR FILTRATION RATE > 60.0 (>45); GLUCOSE, FASTING 95 MG/DL (80-110); POTASSIUM SERUM 3.7 MEQ/L (3.5-5.1); SODIUM LEVEL 144 MEQ/L (136-145)
[2016-11-28] MEDS: VANCOMYCIN HCL 1,000 MG, VIAL MATE ADAPTER 1 EACH in D5W 250 ML IV SCH ×2 (05:38→17:25)
[2016-11-28] MEDS: HEPARIN SOD (PORCINE) 5000 UNITS/ML VIAL SC SCH ×3 (05:39→21:22)
[2016-11-28 08:47] LABS: ABG BASE EXCESS -2.9 (-2.0-2.0); ABG HCO3 22.7 MEQ/L (22.0-26.0); ABG PARTIAL PRESSURE CO2 42.6 mmHg (35.0-45.0); ABG PARTIAL PRESSURE O2 123.2 mmHg (75.0-100.0); ABG STANDARD HCO3 22.1 MEQ/L (22.0-26.0); ABG pH (ARTERIAL) 7.344 UNITS (7.350-7.450)
[2016-11-28] MEDS: FLUCONAZOLE 100 MG TAB PO SCH (08:50)
[2016-11-28] MEDS: NS 1,000 ML IV SCH ×2 (08:50→16:34)
[2016-11-28] MEDS: PANTOPRAZOLE 40MG INJ (PROTONIX) (C9113) IV SCH (08:50)
--- NOTE | 2016-11-28 08:53 | REP ---
CT LUMBAR SPINE WITHOUT CONTRAST: 11/27/2016. Technique: Axial thin-section images with soft tissue and bone window images and both coronal and sagittal reconstructions were provided. Angled axial and reconstructions through the plane of the L2-3 through L4-5 disc levels separately. Clinical history: Question diskitis. Findings. The sagittal images show disc spaces from T12-L1 through L5-S1 with only a subtle narrowing at L2-3 disc space. No destructive changes in any of the vertebral bodies or their endplates. There are disc bulges from L2-3 through L5, S1. Combined factors contribute to some spinal stenosis at L4-5 with lateral recess stenosis due to facet, ligamentum flavum hypertrophy and the bulge. At L5- S1 minimal bulge abuts S1 nerve roots without central canal stenosis. Foramina adequate. At L3-4 there is minimal disc bulge with some mild central canal stenosis due to combined factors. Foramina adequate. At L2-3 there is minimal bulge without spinal or foraminal stenosis. No paraspinal soft tissue abnormalities or hematomas. Impression: 1. Degenerative disc changes L2-3 through L5-S1 with slight narrowing only at L2-3 with disc space, but all end plates intact and no destructive changes or other signs for discitis/osteomyelitis by this study. 2. Disc bulges with some mild central canal stenosis at L3-4, more at L4-5, minimal at L5-S1. Signed by Cal Kirkpatrick MD 11/28/2016 06:53 P
[2016-11-28] MEDS: SUCRALFATE 1 GM TAB PO SCH ×3 (09:00→21:22)
[2016-11-28] MEDS: ALPRAZolam 0.5 MG TAB PO SCH ×3 (11:25→21:22)
[2016-11-28] MEDS ORDERED: VANCOMYCIN HCL 1,000 MG, VIAL MATE ADAPTER 1 EACH in D5W 250 ML IV SCH (12:00)
[2016-11-28] MEDS: BUDESONIDE 0.5 MG/2 ML INHALATION SUSPENSION INH SCH ×2 (12:26→20:47)
[2016-11-28] MEDS: IPRATROPIUM 0.5MG/ALBUTEROL 2.5MG INH SOL UD 3ML (DUONEB)(J7620) NEB SCH ×2 (12:26→20:47)
--- NOTE | 2016-11-28 19:25 | ECGEPIP ---
Stationary ECG Study [facility] - ED Test Date: 2016-11-27 Pat Name: MAN KANG Department: Room: [place] [address] Gender: F Picker Tender: eleazar : 1955 Requested By: Adolph Ramírez Order Number: [id number] Reading MD: Melvin Hood Measurements Intervals [place] Rate: 105 P: 49 WA: 173 QRS: 55 QRSD: 90 T: 24 QT: 333 QTc: 441 Interpretive Statements SINUS TACHYCARDIA POSSIBLE LEFT ATRIAL ENLARGEMENT POSSIBLE RIGHT VENTRICULAR CONDUCTION DELAY MODERATE ST DEPRESSION cw 10/19/16 - rate same morphology - nonspecific st t wave changes Electronically Signed On 11-28-2016 19:24:52 EST by Melvin Hood
[2016-11-29] VITALS (8 sets, daily range): BP systolic 91–157; BP diastolic 51–80
[2016-11-29] MEDS: PIPERACILLIN/TAZOBACTAM SOD 3.375 GM in D5W MINI-BAG PLUS 50 ML IV SCH ×4 (02:19→20:33)
[2016-11-29] MEDS: ACETAMINOPHEN TAB 650MG DOSE (2X325MG) PO PRN (04:05)
[2016-11-29 04:54] LABS: MEAN CORPUSCULAR HEMOGLOBIN 30.8 pg (27.0-33.0); MEAN CORPUSCULAR HGB CONC 31.3 g/dl (32.0-36.5); MEAN CORPUSCULAR VOLUME 98.5 fl (80.0-96.0); RED CELL DISTRIBUTION WIDTH 13.6 % (11.5-14.5); WHITE BLOOD COUNT 9.5 K/mm3 (4.0-10.0)
[2016-11-29 05:25] LABS: ALBUMIN 2.5 GM/DL (3.2-5.2); ALBUMIN/GLOBULIN RATIO 0.74 (1.00-1.93); ALKALINE PHOSPHATASE 84 U/L (45-117); ALT/SGPT 19 U/L (12-78); ANION GAP 7 MEQ/L (8-16); AST/SGOT 14 U/L (15-37); BILIRUBIN,TOTAL 0.2 MG/DL (0.2-1.0); BLOOD UREA NITROGEN 11 MG/DL (7-18); CALCIUM LEVEL 7.9 MG/DL (8.8-10.2); CARBON DIOXIDE LEVEL 28 MEQ/L (21-32); CHLORIDE LEVEL 110 MEQ/L (98-107); CREATININE FOR GFR 0.82 MG/DL (0.55-1.02); GLOMERULAR FILTRATION RATE > 60.0 (>45); GLUCOSE, FASTING 211 MG/DL (80-110); POTASSIUM SERUM 4.1 MEQ/L (3.5-5.1); SODIUM LEVEL 145 MEQ/L (136-145); TOTAL PROTEIN 5.9 GM/DL (6.4-8.2)
[2016-11-29] MEDS: NS 1,000 ML IV SCH (06:05)
[2016-11-29] MEDS: HEPARIN SOD (PORCINE) 5000 UNITS/ML VIAL SC SCH ×3 (06:06→22:02)
[2016-11-29] MEDS: VANCOMYCIN HCL 1,000 MG, VIAL MATE ADAPTER 1 EACH in D5W 250 ML IV SCH (06:06)
[2016-11-29] MEDS: IPRATROPIUM 0.5MG/ALBUTEROL 2.5MG INH SOL UD 3ML (DUONEB)(J7620) NEB SCH ×3 (07:30→19:05)
[2016-11-29] MEDS: BUDESONIDE 0.5 MG/2 ML INHALATION SUSPENSION INH SCH ×2 (07:30→19:05)
[2016-11-29] MEDS: ALPRAZolam 0.5 MG TAB PO SCH ×3 (08:31→20:33)
[2016-11-29] MEDS: SUCRALFATE 1 GM TAB PO SCH ×3 (08:31→20:33)
[2016-11-29] MEDS: PANTOPRAZOLE 40MG INJ (PROTONIX) (C9113) IV SCH (08:31)
[2016-11-29] MEDS: FLUCONAZOLE 100 MG TAB PO SCH (08:31)
--- NOTE | 2016-11-29 12:30 | IPNPDOC ---
Subjective General Date Seen The patient was seen on 11/28/16. Subjective Chief Complaint/HPI The patient is a 61-year-old female admitted with a reason for visit of Severe Sepsis. Events since last encounter feeling better this am , no further vomiting , no diarrhea, no nausea, had low grade fever yesterday , blood pressures better, responded to ivf, good urine output. Objective Physical Examination General Exam: Positive: Alert, No Acute Distress Eye Exam: Positive: Conjunctiva & lids normal, EOMI, PERRLA, Negative: Sclera icteric ENT Exam: Positive: Atraumatic, Mucous membr. moist/pink, Pharynx Normal Neck Exam: Positive: Supple, Negative: JVD, thyromegaly Chest Exam: Positive: Clear to auscultation, Normal air movement Heart Exam: Positive: Normal S1, Normal S2, Rate Normal, Regular Rhythm, Negative: Murmurs, Rubs Telemetry: Positive: No significant arrhythmia Abdomen Exam: Positive: Normal bowel sounds, Soft, Negative: Hepatospenomegaly, Tenderness Extremity Exam: Positive: Normal pulses, Negative: Clubbing, Cyanosis, Edema Assessment /Plan Problems Problems: (1) Sepsis with organ dysfunction Status: Acute Problem Text: possible source urine infection Has associated THERESE has a stag horn calculi and urine was positive or fungi last week. will treat with zosyn and vanco till we have cultures back. (2) THERESE (acute kidney injury) Status: Acute Problem Text: will continue with ivf. (3) Obesity Status: Chronic (4) Staghorn renal calculus Status: Chronic Problem Text: will need referral to urology on discharge. (5) Diverticulosis Status: Chronic (6) COPD (chronic obstructive pulmonary disease) Status: Chronic (7) Diastolic CHF Status: Chronic (8) Hypertension Status: Chronic (9) Diabetes Status: Chronic (10) Chronic respiratory failure with hypoxia Status: Chronic (11) Ventral hernia Status: Chronic (12) JERMAIN (obstructive sleep apnea) Status: Chronic Problem Text: uses only oxygen at night , could not tolerate the CPAP. (13) Anxiety Status: Chronic Problem Text: will continue alprazolam at lower dosage. Plan/VTE VTE Prophylaxis Ordered?: Yes VS, I&O, 24H, Fishbone Vital Signs/I&O Vital Signs Date Time Temp Pulse Resp B/P Pulse Ox O2 Delivery O2 Flow Rate FiO2 11/28/16 08:00 Nasal Cannula 2.0 11/28/16 08:00 98.3 90 20 101/58 96 11/27/16 18:30 94 I&O- Last 24 Hours up to 6 AM 11/28/16 06:00 Intake Total 5595 ml Output Total 1650 ml Balance 3945 ml Laboratory Data 24H LABS Laboratory Tests 2 11/27/16 12:29: Aspartate Amino Transf (AST/SGOT) 14L, Alanine Aminotransferase (ALT/SGPT) 23, Alkaline Phosphatase 80, Total Bilirubin 0.3, Direct Bilirubin < 0.1, Albumin 3.5, Albumin/Globulin Ratio 1.13, Amylase Level 91, Anion Gap 12, White Blood Count 19.3H, Red Blood Count 4.26, Hemoglobin 12.6, Hematocrit 40.5, Mean Corpuscular Volume 95.1, Mean Corpuscular Hemoglobin 29.6, Mean Corpuscular Hemoglobin Concent 31.1L, Red Cell Distribution Width 13.6, Platelet Count 505H , Neutrophils (%) (Auto) 79.5H, Lymphocytes (%) (Auto) 11.7L, Monocytes (%) ( Auto) 6.4H, Eosinophils (%) (Auto) 0.4, Basophils (%) (Auto) 0.5, Neutrophils # (Auto) 15.4H, Lymphocytes # (Auto) 2.3, Monocytes # (Auto) 1.2H, Eosinophils # ( Auto) 0.1, Basophils # (Auto) 0.1, Blood Gas Bicarbonate Standard 25.5, C- Reactive Protein, Quantitative 1.77H, Calcium Level 9.5, Creatine Kinase MB 3.0 , Creatine Kinase MB Relative Index 7.69H, Glomerular Filtration Rate 33.7L, Lactic Acid (Sepsis) 2.9*H, Large Unclassified Cells # 0.3, Large Unclassified Cells % 1.5, Total Creatine Kinase 39, Total Protein 6.6, Troponin I < 0.02, Venous Blood Base Excess 1.4, Venous Blood pH 7.384, Venous Blood Partial Pressure CO2 46.3, Venous Blood Partial Pressure O2 52.4H, Venous Blood Total Carbon Dioxide 28.4H, Venous Blood HCO3 27.0, Venous Blood Oxygen Saturation 86.7H 11/27/16 12:59: Activated Partial Thromboplast Time 26.2L, Prothromb Time International Ratio 1.13, Prothrombin Time 14.6H 11/27/16 15:36: Urine Amorphous Sediment SMALLH, Urine Appearance CLEAR, Urine Color MALGORZATA, Urine pH 5.0, Urine Specific [place] 1.008, Urine Protein NEGATIVE, Urine Glucose (UA) NEGATIVE, Urine Ketones NEGATIVE, Urine Urobilinogen 0.2, Urine Bilirubin NEGATIVE, Urine Leukocyte Esterase 3+H, Urine Bacteria (Auto) 1+H, Urine Blood 2+H, Urine Calcium Carbonate Cryst(Auto) , Urine Calcium Oxalate Cryst (Auto) , Urine Calcium Phosphate Lauren (Auto) , Urine Cellular Casts , Urine Cystine Crystals , Urine Granular Casts (Auto) , Urine Hyaline Casts (Auto ) 0, Urine Leucine Crystals , Urine Mucus (Auto) SMALL, Urine Nitrite NEGATIVE, Urine Oval Fat Bodies (Auto) , Urine RBC (Auto) 27H, Urine Renal Epithelial Cells , Urine Sperm (Auto) , Urine Squamous Epithelial Cells 0, Urine Transitional Epithelial Cells , Urine Trichomonas (Auto) , Urine Triple Phosphate Cryst (Auto) , Urine Tyrosine Crystals , Urine Uric Acid Crystals ( Auto) , Urine WBC (Auto) 80H, Urine Waxy Casts (Auto) , Urine Yeast-Like Cells ( Auto) 11/27/16 16:54: Lactic Acid Level 2.6*H 11/28/16 04:04: Blood Urea Nitrogen 19H, Creatinine 0.92, Sodium Level 144#, Potassium Level 3.7 , Chloride Level 110H, Carbon Dioxide Level 26, Calcium Level 7.1#L, Aspartate Amino Transf (AST/SGOT) 11L, Alanine Aminotransferase (ALT/SGPT) 16, Alkaline Phosphatase 52, Total Bilirubin 0.2, Total Protein 5.0#L, Albumin 2.2#L, Albumin /Globulin Ratio 0.79L, Anion Gap 8, Glomerular Filtration Rate > 60.0 11/28/16 07:21: Lactic Acid (Sepsis) 1.5 11/28/16 08:34: Arterial Blood pH 7.344L, Arterial Blood Partial Pressure CO2 42.6, Arterial Blood Partial Pressure O2 123.2H, Arterial Blood Total CO2 24.0, Arterial Blood HCO3 22.7, Arterial Blood Base Excess -2.9L, Arterial Blood Oxygen Saturation 98.3, Blood Gas Bicarbonate Standard 22.1 CBC/BMP Laboratory Tests 11/27/16 12:29 Red Blood Count 4.26, Mean Corpuscular Volume 95.1, Mean Corpuscular Hemoglobin 29.6, Mean Corpuscular Hemoglobin Concent 31.1 L, Red Cell Distribution Width 13.6, Neutrophils (%) (Auto) 79.5 H, Lymphocytes (%) (Auto) 11.7 L, Monocytes (% ) (Auto) 6.4 H, Eosinophils (%) (Auto) 0.4, Basophils (%) (Auto) 0.5, Neutrophils # (Auto) 15.4 H, Lymphocytes # (Auto) 2.3, Monocytes # (Auto) 1.2 H , Eosinophils # (Auto) 0.1, Basophils # (Auto) 0.1 11/28/16 04:04 Red Blood Count 3.13 L, Mean Corpuscular Volume 95.3, Mean Corpuscular Hemoglobin 30.7, Mean Corpuscular Hemoglobin Concent 32.2, Red Cell Distribution Width 13.7, Calcium Level 7.1 #L, Aspartate Amino Transf (AST/SGOT ) 11 L, Alanine Aminotransferase (ALT/SGPT) 16, Alkaline Phosphatase 52, Total Bilirubin 0.2, Total Protein 5.0 #L, Albumin 2.2 #L Microbiology Microbiology 11/27/16 Blood Culture, Received Pending 11/27/16 Blood Culture, Received Pending 11/27/16 MRSA Screen, Received Pending 11/27/16 Urine Culture - Final, Complete Yeast Like Organism CHERRY CUNNINGHAM MD Nov 28, 2016 11:28
--- NOTE | 2016-11-29 12:35 | IPNPDOC ---
Subjective General Date Seen The patient was seen on 11/29/16. Subjective Chief Complaint/HPI The patient is a 61-year-old female admitted with a reason for visit of Severe Sepsis. Events since last encounter feeling well , feels that the medications given from the ED last week and well as the bp medications was making her sick . today no complaints, no fever or chills, no chest pain or sob , no abdominal pain nausea or vomiting. does have chronic back pain. Objective Physical Examination General Exam: Positive: Alert, No Acute Distress Eye Exam: Positive: Conjunctiva & lids normal, EOMI, PERRLA, Negative: Sclera icteric ENT Exam: Positive: Atraumatic, Mucous membr. moist/pink, Pharynx Normal Neck Exam: Positive: Supple, Negative: JVD, thyromegaly Chest Exam: Positive: Clear to auscultation, Normal air movement Heart Exam: Positive: Normal S1, Normal S2, Rate Normal, Regular Rhythm, Negative: Murmurs, Rubs Telemetry: Positive: No significant arrhythmia Abdomen Exam: Positive: Normal bowel sounds, Soft, Negative: Hepatospenomegaly, Tenderness Extremity Exam: Positive: Normal pulses, Negative: Clubbing, Cyanosis, Edema Assessment /Plan Problems Problems: (1) Sepsis with organ dysfunction Status: Acute Problem Text: possible source urine infection Has associated THERESE has a stag horn calculi and urine was positive or fungi last week. urine culture shows only fungi however pateint was on keflex at home so UC may be negative. pateint does have history of ESBL ecoli so will continue zosyn [facility]. (2) THERESE (acute kidney injury) Status: Resolved (3) Staghorn renal calculus Status: Chronic Problem Text: will need referral to urology on discharge. (4) Obesity Status: Chronic (5) Diverticulosis Status: Chronic (6) COPD (chronic obstructive pulmonary disease) Status: Chronic (7) Diastolic CHF Status: Chronic (8) Hypertension Status: Chronic Problem Text: was hypotensive on admission could be ralated to BP meds and dehydaration and infection will continue to hold lisinopril . as per pateint bps running low since starting the med so will probably need to be dced on discharge. (9) Diabetes Status: Chronic (10) Chronic respiratory failure with hypoxia Status: Chronic (11) Ventral hernia Status: Chronic (12) JERMAIN (obstructive sleep apnea) Status: Chronic Problem Text: uses only oxygen at night , could not tolerate the CPAP. (13) Anxiety Status: Chronic Problem Text: will continue alprazolam at lower dosage. Plan/VTE VTE Prophylaxis Ordered?: Yes VS, I&O, 24H, Fishbone Vital Signs/I&O Vital Signs Date Time Temp Pulse Resp B/P Pulse Ox O2 Delivery O2 Flow Rate FiO2 11/29/16 08:00 Room Air 11/29/16 08:00 98.1 81 24 128/74 92 2.0 11/27/16 18:30 94 I&O- Last 24 Hours up to 6 AM 11/29/16 06:00 Intake Total 4620 ml Output Total 2300 ml Balance 2320 ml Laboratory Data 24H LABS Laboratory Tests 2 11/29/16 04:09: Blood Urea Nitrogen 11, Creatinine 0.82, Sodium Level 145, Potassium Level 4.1, Chloride Level 110H, Carbon Dioxide Level 28, Calcium Level 7.9L, Aspartate Amino Transf (AST/SGOT) 14L, Alanine Aminotransferase (ALT/SGPT) 19, Alkaline Phosphatase 84, Total Bilirubin 0.2, Total Protein 5.9L, Albumin 2.5L, Albumin/ Globulin Ratio 0.74L, Anion Gap 7L, Glomerular Filtration Rate > 60.0 CBC/BMP Laboratory Tests 11/29/16 04:09 Calcium Level 7.9 L, Aspartate Amino Transf (AST/SGOT) 14 L, Alanine Aminotransferase (ALT/SGPT) 19, Alkaline Phosphatase 84, Total Bilirubin 0.2, Total Protein 5.9 L, Albumin 2.5 L, Red Blood Count 3.26 L, Mean Corpuscular Volume 98.5 H, Mean Corpuscular Hemoglobin 30.8, Mean Corpuscular Hemoglobin Concent 31.3 L, Red Cell Distribution Width 13.6 Microbiology Microbiology 11/27/16 Blood Culture - Preliminary, Resulted No growth after 24 hours . All specim... 11/27/16 Blood Culture - Preliminary, Resulted No growth after 24 hours . All specim... 11/27/16 MRSA Screen - Final, Complete 11/27/16 Urine Culture - Final, Complete Yeast Like Organism CHERRY CUNNINGHAM MD Nov 29, 2016 12:35
--- NOTE | 2016-11-29 19:08 | EDDOCDS ---
Nurse's Notes [facility] Name: Allison Weiss Age: 61 yrs Sex: Female : 1955 Arrival Date: 11/27/2016 Time: 12:17 Bed 3 Private MD: Khadijah Thomas Diagnosis: Sepsis, unspecified organism;Discitis, unspecified, lumbar region-suspected;Calculus of kidney-staghorn, left without significant changes from prior CTs;Diverticulosis of large intestine without perforation or abscess without bleeding Presentation: 11/27 12:24 Presenting complaint: Patient states: Feeling ill with abdominal pain N/V, dizziness mlb1 and diaphoresis began this am. Adult Sepsis Screening: The patient does not have new or worsening altered mentation. Patient has a respiratory rate of greater than or equal to 22 (1 point). Systolic blood pressure is less than or equal to 100 (1 point). Patient has a qSOFA score of 2. Suicide/Homicide risk assessment- the patient denies having any suicidal and/or homicidal ideations and does not present with any other emotional, behavioral or mental health complaints. 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 Transition of care: patient was not received from another setting of care. 12:24 Acuity: MARTHA Level 2 mlb1 12:24 Method Of Arrival: Walkin/Carried/Asstd mlb1 Triage Assessment: 12:28 General: Appears ill, Behavior is appropriate for age, cooperative. Pain: Location: mlb1 right lower quadrant and left lower quadrant Pain currently is 8 out of 10 on a pain scale. Pt Declines HIV testing. The patient is triaged at the bedside. See Assessment in Nurses Notes section of ED record. Neurological: Reports dizziness. GI: Reports nausea. Historical: - Allergies: no known allergies; - Home Meds: 1. Carafate 1 gram Oral tab three times a day 2. furosemide 40 mg Oral tab once daily 3. hydrocodone-acetaminophen 5-325 mg Oral tab every 8 hours as needed 4. lisinopril 10 mg Oral tab 1 tab once daily 5. metformin 500 mg Oral tab 2 tabs 2 times per day 6. Oxygen 1.5 liters at night as needed 7. potassium chloride 20 mEq Oral TbER once daily 8. Flagyl 500 mg Oral tab 1 tab 2 times per day 9. Prednisone Oral dose pack 10. Keflex 500 mg Oral cap 1 cap every 6 hours 11. Zofran (as hydrochloride) 4 mg Oral tab 4 mg every 8 hours 12. hydroxyzine HCl 25 mg Oral tab 1 tab 3 times per day 13. alprazolam 1 mg Oral tab 1 tab 3 times per day 14. Sertraline 50 mg daily - PMHx: CHF; COPD; Diabetes - NIDDM: controlled; Diverticulosis; - PSHx: cyst removed leg; - Social history: Smoking status: Patient states former smoker of tobacco. No barriers to communication noted, The patient speaks fluent Ukrainian, Speaks appropriately for age. - Family history: Not pertinent. - : The pt / caregiver states he / she is not on anticoagulants. Home medication list is obtained from the patient. - Exposure Risk Screening:: None identified. - Immunization history:: All immunizations up-to-date. - Social history:: the patient is a former smoker, the patient does not drink alcohol. Screenin:26 Infection Control. el 12:29 Screening information is obtained from the patient. Fall risk: No risks identified. pml Assistance ADL's: requires no assistance with activities of daily living. Abuse/DV Screen: The patient / caregiver reports he/she is: not in a situation that causes fear, pain or injury. Nutritional screening: On diabetic diet. Advance Directives: Currently, there is no health care proxy. There is no active DNR order. home support is adequate. Assessment: 12:29 General: Appears ill, Behavior is appropriate for age, cooperative. Pain: Location: pml back and right lower quadrant Pain currently is 8 out of 10 on a pain scale. Neurological: Level of Consciousness is awake, alert, Oriented to person, place, time, Pupils are PERRLA. Cardiovascular: Capillary refill < 3 seconds Rhythm is sinus tachycardia No ectopy. Respiratory: Airway is patent Respiratory effort is even, unlabored, Respiratory pattern is regular, hyperventilation Breath sounds are clear bilaterally. GI: Abdomen is non- distended obese, Bowel sounds hypoactive in right upper quadrant, left upper quadrant, right lower quadrant and left lower quadrant Abd is soft X 4 quads Abd is tender to palpation in right upper quadrant Reports lower abdominal pain, nausea, vomiting. Derm: Skin is pink, warm & dry. 13:00 General: resting on stretcher, complains of feeling cold and lower abdominal and back pml pain. alert and oriented x 3. resps rapid, unlabored, skin p/w/d. . 13:15 Adult Sepsis Screening: Accepted Exclusions- Patient is already in the Sepsis Protocol. pml 13:49 General: to CT without complaints. returned to room, resps unlabored, rapid, sinus pml rhythm on monitor. remains in Trendelenburg position. IVF infusing freely. skin p/w/d. . 13:58 Respiratory: Breath sounds are diminished in left posterior lower lobe and right pml posterior lower lobe MD River aware, continue IVF. 14:28 General: Appears in no apparent distress, Behavior is appropriate for age, cooperative. pml Pain: Location: back and left lower quadrant and right lower quadrant. Neurological: Level of Consciousness is awake, alert, Oriented to person, place, time. Cardiovascular: Capillary refill < 3 seconds Rhythm is sinus tachycardia No ectopy. Derm: Skin is pink, warm & dry. 15:30 General: resting on stretcher, resps easy and unlabored, skin p/w/d. sinus rhythm on pml monitor. gastelum to gravity drainage with urine output. 16:27 General: Appears in no apparent distress, Behavior is appropriate for age, cooperative. pml Pain: Location: back. Neurological: Level of Consciousness is awake, alert, Oriented to person, place, time. Cardiovascular: Capillary refill < 3 seconds Rhythm is sinus rhythm No ectopy. Derm: Skin is pink, warm & dry. 18:03 General: Appears in no apparent distress, Behavior is appropriate for age, cooperative. dy Pain: Location: back and left lower quadrant and right lower quadrant Pain currently is 5 out of 10 on a pain scale. Neurological: Level of Consciousness is awake, alert, Oriented to person, place, time. Cardiovascular: Capillary refill < 3 seconds Rhythm is sinus rhythm No ectopy. Respiratory: Airway is patent Respiratory effort is even, unlabored, Respiratory pattern is regular, symmetrical. GI: Abdomen is non- distended. Derm: Skin is pink, warm & dry. Vital Signs: 12:18 BP 77 / 59 RA Sitting (auto/lg); Pulse 126; Resp 24; Temp 98.7(O); Pulse Ox 96% on R/A; elp Weight 84.82 kg (R); Height 5 ft. 5 in. (165.10 cm) (R); 12:18 BP 49 / 41 RA Sitting (auto/lg); elp 12:21 BP 64 / 49 LA Sitting (auto/reg); elp 12:24 BP 70 / 43 (auto/); pml 12:27 Pulse 122 MON; Pulse Ox 93% ; pml 12:29 BP 70 / 52 LA Supine (man/lg); pml 12:30 Pulse 119 MON; Pulse Ox 93% ; pml 12:30 BP 75 / 45 (auto/); pml 12:40 Pulse 110 MON; Pulse Ox 92% ; pml 12:40 BP 80 / 51 (auto/); pml 12:50 Pulse 107 MON; Pulse Ox 86% ; pml 12:50 BP 86 / 62 (auto/); pml 13:00 Pulse 105 MON; Pulse Ox 97% ; pml 13:00 BP 94 / 53 (auto/); pml 13:10 Pulse 102 MON; Pulse Ox 100% ; pml 13:10 BP 82 / 44 (auto/); pml 13:20 Pulse 102 MON; Pulse Ox 98% ; pml 13:20 BP 76 / 46 (auto/); pml 13:30 Pulse 102 MON; Pulse Ox 98% ; pml 13:30 BP 85 / 54 (auto/); pml 13:33 Pulse 103 MON; Pulse Ox 97% ; pml 13:40 BP 87 / 52 (auto/); pml 13:50 Pulse 107 MON; Pulse Ox 98% ; pml 13:50 BP 87 / 50 (auto/); pml 14:00 Pulse 105 MON; Pulse Ox 97% ; pml 14:00 BP 85 / 52 (auto/); pml 14:10 Pulse 106 MON; Pulse Ox 97% ; pml 14:10 BP 92 / 54 (auto/); pml 14:16 BP 72 / 48; pml 14:20 Pulse 104 MON; Pulse Ox 97% ; pml 14:20 BP 93 / 55 (auto/); pml 14:30 Pulse 101 MON; Pulse Ox 97% ; pml 14:30 BP 90 / 52 (auto/); pml 14:40 Pulse 99 MON; Pulse Ox 96% ; pml 14:40 BP 90 / 51 (auto/); pml 14:50 Pulse 100 MON; Pulse Ox 95% ; pml 14:50 BP 95 / 55 (auto/); pml 15:10 Pulse 98 MON; Pulse Ox 95% ; pml 15:10 BP 98 / 55 (auto/); pml 15:20 Pulse 98 MON; Pulse Ox 94% ; pml 15:20 BP 103 / 57 (auto/); pml 15:30 Pulse 100 MON; Pulse Ox 95% ; pml 15:30 BP 100 / 56 (auto/); pml 15:38 Temp 98.2; pml 15:40 Pulse 101 MON; Pulse Ox 96% ; pml 15:40 BP 87 / 53 (auto/); pml 15:50 Pulse 99 MON; Pulse Ox 95% ; pml 15:50 BP 89 / 53 (auto/); pml 16:00 Pulse 98 MON; Pulse Ox 97% ; pml 16:00 BP 81 / 47 (auto/); pml 16:10 Pulse 98 MON; Pulse Ox 95% ; pml 16:10 BP 92 / 54 (auto/); pml 16:20 Pulse 98 MON; Pulse Ox 97% ; pml 16:20 BP 94 / 52 (auto/); pml 16:30 Pulse 96 MON; Pulse Ox 97% ; dy 16:30 BP 92 / 50 (auto/); dy 16:40 Pulse 97 MON; Pulse Ox 97% ; dy 16:40 BP 97 / 55 (auto/); dy 16:50 BP 100 / 55 (auto/); dy 16:50 Pulse 97 MON; Pulse Ox 95% ; dy 17:00 Pulse 95 MON; Pulse Ox 96% ; dy 17:00 BP 96 / 55 (auto/); dy 17:10 Pulse 95 MON; Pulse Ox 96% ; dy 17:10 BP 90 / 54 (auto/); dy 17:20 Pulse 96 MON; Pulse Ox 97% ; dy 17:20 BP 94 / 51 (auto/); dy 17:30 Pulse 97 MON; Pulse Ox 97% ; dy 17:30 BP 92 / 46 (auto/); dy 17:40 Pulse 96 MON; Pulse Ox 98% ; dy 17:40 BP 95 / 51 (auto/); dy 17:50 Pulse 96 MON; Pulse Ox 94% ; dy 17:50 BP 99 / 57 (auto/); dy 18:05 BP 94 / 57; Pulse 94; Resp 20; Temp 98.3; Pulse Ox 99% on R/A; dy 12:18 Body Mass Index 31.12 (84.82 kg, 165.10 cm) elp Vitals: 12:18 Log In Time: November 27, 2016 at 12:15. RN notified that patient meets Red Flag elp criteria. ED Course: 12:18 Patient visited by Kailey Humphries PCA. elp 12:18 Khadijah Thomas is Private Physician. elp 12:18 Patient moved to Waiting elp 12:20 Patient visited by Kailey Humphries PCA. elp 12:22 Allison Andrews RN is Primary Nurse. elp 12:22 Patient visited by Kailey Humphries PCA. elp 12:22 Patient moved to 3 elp 12:23 Adolph River MD is Attending Physician. pc 12:25 Triage Initiated mlb1 12:29 Patient visited by Power Hirsch RN. mlb1 12:29 The patient / caregiver is instructed regarding the plan of care and ED course. Patient pml has correct armband on for positive identification. Placed in gown. Bed in low position. Call light in reach. Side rails up X2. teletypesetter monitor on. Pulse ox on. NIBP on. 12:29 Inserted peripheral IV: 18gauge IV in right antecubital area and blood collected. pml Patient tolerated the procedure well. by NICHELLE Wooten. 12:29 Inserted peripheral IV: 18gauge IV in left antecubital area and blood collected. pml Patient tolerated the procedure well. by NICHELLE Wooten. 12:33 Patient visited by Allison Andrews RN. pml 12:43 Patient visited by Adolph River MD. pc 12:46 Patient visited by Allison Andrews RN. pml 12:50 Gastelum cath inserted 16 Fr. Balloon inflated. To gravity drainage. returned no urine pml return, bladder scanned for >15mL urine. . Patient tolerated well. 13:01 Patient visited by Allison Andrews RN. pml 13:07 EKG done. (by ED staff). Reviewed by Adolph River MD. rn1 13:27 O2 via nasal cannula \T\ 2L/min. pml 13:28 Patient visited by Allison Andrews RN. pml 13:50 Patient visited by Allison Andrews RN. pml 14:16 Patient visited by Allison Andrews RN. pml 14:29 Patient visited by Allisno Andrews RN. pml 14:56 Mani Robles is Hospitalizing Provider. pc 14:59 Chest, 1 View Returned. EDMS 14:59 CT ABD & PELVIS: No Contrast Returned. EDMS 15:21 [facility] [place] Payment Agreement was scanned into [employer] and attached to record. mm15 15:59 Patient visited by Allison Andrews,RN. pml 16:29 Patient visited by Allison Andrews,RN. pml 18:05 No procedures done that require assistance. dy 11/29 10:25 ECG/EKG was scanned into [employer] and attached to record. gb Administered Medications: 11/27 12:40 Drug: NS 0.9% 1000 ml [sodium chloride 0.9 % injection syringe] Route: IV; Rate: bolus; pml Site: left antecubital; 13:16 Follow up: IV Status: Completed infusion; IV Intake: 1000ml pml 12:40 Drug: Ondansetron 4 mg [ondansetron HCl 2 mg/mL intravenous solution (2 mL)] Route: pml IVP; Site: left antecubital; 13:26 Drug: NS 0.9% (Sepsis- hypotension or lactate >4mmol/L, 30ml/kg) [id number] mL Route: IV; pml Rate: bolus; Site: left antecubital; 14:30 Follow up: IV Status: Completed infusion; IV Intake: 2500ml dy 13:30 CANCELLED (Other Intervention Used): Piperacillin-Tazobactam 0.35 grams IVPB once over pc 30 mins; dilute in 50mL of NS or D5W. Renal dosed for GFR 33 13:49 Drug: Piperacillin-Tazobactam 3.375 grams [piperacillin-tazobactam 3.375 gram pml intravenous solution] Route: IVPB; Infused Over: 30 mins; Site: left antecubital; 14:50 Follow up: IV Status: Completed infusion dy 14:42 Drug: fentaNYL (PF) 12.5 mcg [fentanyl (PF) 50 mcg/mL injection solution (0.25 mL)] pml Route: IVP; Site: right antecubital; 15:00 Follow up: Response: Confirmed pt not driving.; Pain is decreased dy Intake: 13:16 IV: 1000.00ml; Total: 1000.00ml. pml 14:30 IV: 2500.00ml; Total: 3500.00ml. dy Output: 16:07 Urine: 250.00ml (Gastelum); Total: 250.00ml. pml Order Results: Lab Order: CBC with Diff; SPEC'M 11/27/16 12:29 Test: WHITE BLOOD COUNT; Value: 19.3; Range: 4.0-10.0; Abnormal: Above high normal; Units: K/mm3; Status: F Test: RED BLOOD COUNT; Value: 4.26; Range: 4.00-5.40; Units: M/mm3; Status: F Test: HEMOGLOBIN; Value: 12.6; Range: 12.0-16.0; Units: g/dl; Status: F Test: HEMATOCRIT; Value: 40.5; Range: 36.0-47.0; Units: %; Status: F Test: MEAN CORPUSCULAR VOLUME; Value: 95.1; Range: 80.0-96.0; Units: fl; Status: F Test: MEAN CORPUSCULAR HEMOGLOBIN; Value: 29.6; Range: 27.0-33.0; Units: pg; Status: F Test: MEAN CORPUSCULAR HGB CONC; Value: 31.1; Range: 32.0-36.5; Abnormal: Below low normal; Units: g/dl; Status: F Test: RED CELL DISTRIBUTION WIDTH; Value: 13.6; Range: 11.5-14.5; Units: %; Status: F Test: PLATELET COUNT, AUTOMATED; Value: 505; Range: 150-450; Abnormal: Above high normal; Units: k/mm3; Status: F Test: NEUTROPHILS %; Value: 79.5; Range: 36.0-66.0; Abnormal: Above high normal; Units: %; Status: F Test: LYMPH %; Value: 11.7; Range: 24.0-44.0; Abnormal: Below low normal; Units: %; Status: F Test: MONO %; Value: 6.4; Range: 0.0-5.0; Abnormal: Above high normal; Units: %; Status: F Test: EOS %; Value: 0.4; Range: 0.0-3.0; Units: %; Status: F Test: BASO %; Value: 0.5; Range: 0.0-1.0; Units: %; Status: F Test: LARGE UNSTAINED CELL %; Value: 1.5; Range: 0.0-4.0; Units: %; Status: F Test: NEUTROPHILS #; Value: 15.4; Range: 1.8-7.7; Abnormal: Above high normal; Units: K/mm3; Status: F Test: LYMPH #; Value: 2.3; Range: 1.5-4.5; Units: K/mm3; Status: F Test: MONO #; Value: 1.2; Range: 0.0-0.8; Abnormal: Above high normal; Units: K/mm3; Status: F Test: EOS #; Value: 0.1; Range: 0.0-0.50; Units: K/mm3; Status: F Test: BASO #; Value: 0.1; Range: 0.0-0.2; Units: K/mm3; Status: F Test: LARGE UNSTAINED CELL #; Value: 0.3; Range: 0.0-0.4; Units: K/mm3; Status: F Lab Order: MED Profile; [facility]' 11/27/16 12:29 Test: GLUCOSE, FASTING; Value: 248; Range: 80-110; Abnormal: Above high normal; Units: MG/DL; Status: F Test: BLOOD UREA NITROGEN; Value: 35; Range: 7-18; Abnormal: Above high normal; Units: MG/DL; Status: F Test: CREATININE FOR GFR; Value: 1.65; Range: 0.55-1.02; Abnormal: Above high normal; Units: MG/DL; Status: F Test: GLOMERULAR FILTRATION RATE; Value: 33.7; Range: >45; Abnormal: Below low normal; Status: F Test: SODIUM LEVEL; Value: 136; Range: 136-145; Units: MEQ/L; Status: F Test: POTASSIUM SERUM; Value: 4.1; Range: 3.5-5.1; Units: MEQ/L; Status: F Test: CHLORIDE LEVEL; Value: 94; Range: 98-107; Abnormal: Below low normal; Units: MEQ/L; Status: F Test: CARBON DIOXIDE LEVEL; Value: 30; Range: 21-32; Units: MEQ/L; Status: F Test: ANION GAP; Value: 12; Range: 8-16; Units: MEQ/L; Status: F Test: CALCIUM LEVEL; Value: 9.5; Range: 8.8-10.2; Units: MG/DL; Status: F Test Note: ; Units are mL/min/1.73 m2 Chronic Kidney Disease Staging per NKF: Stage I & II GFR >=60 Normal to Mildly Decreased Stage III GFR 30-59 Moderately Decreased Stage IV GFR 15-29 Severely Decreased Stage V GFR <15 Very Little GFR Left ESRD GFR <15 on ELECTRIC UTILITY LINEWORKER Lab Order: Liver Profile; [facility]11/27/16 12:29 Test: AST/SGOT; Value: 14; Range: 15-37; Abnormal: Below low normal; Units: U/L; Status: F Test: ALT/SGPT; Value: 23; Range: 12-78; Units: U/L; Status: F Test: ALKALINE PHOSPHATASE; Value: 80; Range: 45-117; Units: U/L; Status: F Test: BILIRUBIN,TOTAL; Value: 0.3; Range: 0.2-1.0; Units: MG/DL; Status: F Test: BILIRUBIN,DIRECT; Value: < 0.1; Range: 0.0-0.2; Units: MG/DL; Status: F Test: TOTAL PROTEIN; Value: 6.6; Range: 6.4-8.2; Units: GM/DL; Status: F Test: ALBUMIN; Value: 3.5; Range: 3.2-5.2; Units: GM/DL; Status: F Test: ALBUMIN/GLOBULIN RATIO; Value: 1.13; Range: 1.00-1.93; Status: F Lab Order: Lactic Acid (Richards tube on ice); [facility]11/27[facility]16 12:29 Test: LACTIC ACID SEPSIS PROTOCOL; Value: 2.9; Range: 0.4-2.0; Abnormal: Above upper panic limits; Units: MMOL/L; Status: F Lab Order: Venous Blood Gas (large pea green tube on ice); [facility] 12:29 Test: VENOUS PH; Value: 7.384; Range: 7.330-7.430; Units: UNITS; Status: F Test: VENOUS PARTIAL PRESSURE CO2; Value: 46.3; Range: 38.0-50.0; Units: mmHg; Status: F Test: VENOUS PARTIAL PRESSURE O2; Value: 52.4; Range: 30.0-50.0; Abnormal: Above high normal; Units: mmHg; Status: F Test: VENOUS TOTAL CO2; Value: 28.4; Range: 24.0-28.0; Abnormal: Above high normal; Units: MEQ/L; Status: F Test: VENOUS HCO3; Value: 27.0; Range: 23.0-27.0; Units: MEQ/L; Status: F Test: VENOUS BASE EXCESS; Value: 1.4; Range: -2.0-2.0; Status: F Test: VENOUS STANDARD HCO3; Value: 25.5; Units: MEQ/L; Status: F Test: VENOUS O2 SATURATION; Value: 86.7; Range: 60.0-80.0; Abnormal: Above high normal; Units: %; Status: F Lab Order: CIP; [facility] 11/27/16 12:29 Test: CPK CREATINE PHOSPHOKINASE; Value: 39; Range: 26-192; Units: U/L; Status: F Test: CK-MB VALUE MASS; Value: 3.0; Range: 0.0-3.6; Units: NG/ML; Status: F Test: MB/CK RELATIVE INDEX; Value: 7.69; Range: < OR =4; Abnormal: Above high normal; Status: F Test Note: ; DIAGNOSIS CRITERIA MMB ng/ml Relative Index (RI) NON-AMI < or = 5 N/A RICHARDS ZONE > 5 < or = 4 AMI > 5 > 4 Lab Order: Troponin; [facility] 11/27/16 12:29 Test: TROPONIN I; Value: < 0.02; Range: < 0.10; Units: NG/ML; Status: F Test Note: ; Troponin I Reference Interval for [employer] LOCI: 99th Percentile= 0.00-0.045 ng/ml Risk Stratification: <= 0.10 ng/ml Decreased Risk for Adverse Clinical Events. 0.10-1.50 ng/ml Increased Risk for Adverse Clinical Events. Evaluation of additional criterion and/or repeat testing in 2-6 hours is suggested to rule out myocardial damage. >= 1.50 ng/ml Indicative of Myocardial Injury. Lab Order: Pt & Aptt; [facility] 11/27/16 12:59 Test: PROTHROMBIN TIME; Value: 14.6; Range: 12.3-14.5; Abnormal: Above high normal; Units: SECONDS; Status: F Test: INR; Value: 1.13; Status: F Test: PARTIAL THROMBOPLASTIN TIME; Value: 26.2; Range: 26.6-37.1; Abnormal: Below low normal; Units: SECONDS; Status: F Test Note: ; THERAPUTIC HUMAN INR VALUES INDICATIONS NORMAL RANGES PROPHYLAXIS/TREATMENT OF: VENOUS THROMBOSIS 2.0-3.0 PULMONARY EMBOLISM 2.0-3.0 PREVENTION OF SYSTEMIC EMBOLISM FROM: TISSUE HEART VALVES 2.0-3.0 ACUTE MYOCARDIAL INFARCTION 2.0-3.0 VALVULAR HEART DISEASE 2.0-3.0 ATRIAL FIBRILLATION 2.0-3.0 MECHANICAL VALVES(HIGH RISK) 2.5-3.5 RECURRENT MYOCARDIAL INFARCTION 2.5-3.5 Lab Order: Type & Screen; [facility] 11/27/16 14:07 Test: BLOOD TYPE; Value: B POS; Status: F Test: AB SCREEN (INDIRECT DONAL)VIS; Value: NEGATIVE; Status: F Lab Order: Urinalysis; [facility] 11/27/16 15:36 Test: APPEARANCE, URINE; Value: CLEAR; Range: CLEAR; Status: F Test: COLOR, URINE; Value: MALGORZATA; Range: YELLOW; Status: F Test: PH,URINE; Value: 5.0; Range: 5.0-9.0; Units: UNITS; Status: F Test: SPECIFIC GRAVITY URINE AUTO; Value: 1.008; Range: 1.002-1.035; Status: F Test: PROTEIN, URINE AUTO; Value: NEGATIVE; Range: NEGATIVE; Units: mg/dL; Status: F Test: GLUCOSE, URINE (UA) AUTO; Value: NEGATIVE; Range: NEGATIVE; Units: mg/dL; Status: F Test: KETONE, URINE AUTO; Value: NEGATIVE; Range: NEGATIVE; Units: mg/dL; Status: F Test: UROBILINOGEN, URINE AUTO; Value: 0.2; Range: 0.0-2.0; Units: mg/dL; Status: F Test: BILIRUBIN, URINE AUTO; Value: NEGATIVE; Range: NEGATIVE; Status: F Test: NITRITE, URINE AUTO; Value: NEGATIVE; Range: NEGATIVE; Status: F Test: LEUKOCYTE ESTERASE, URINE AUTO; Value: 3+; Range: NEGATIVE; Abnormal: Above high normal; Status: F Test: BLOOD, URINE BLOOD; Value: 2+; Range: NEGATIVE; Abnormal: Above high normal; Status: F Test: WBC, URINE AUTO; Value: 80; Range: 0-3; Abnormal: Above high normal; Units: /HPF; Status: F Test: RBC, URINE AUTO; Value: 27; Range: 0-3; Abnormal: Above high normal; Units: /HPF; Status: F Test: BACTERIA, URINE AUTO; Value: 1+; Range: NEGATIVE; Abnormal: Above high normal; Status: F Test: SQUAMOUS EPITHELIAL CELL UR AU; Value: 0; Range: 0-6; Units: /HPF; Status: F Test: MUCUS, URINE; Value: SMALL; Range: NEGATIVE; Status: F Test: HYALINE CAST, URINE AUTO; Value: 0; Range: 0-1; Units: /LPF; Status: F Test: AMORPHOUS SEDIMENT; Value: SMALL; Range: NEGATIVE; Abnormal: Above high normal; Status: F Lab Order: AMYLASE; SPEC'M 11/27/16 12:29 Test: AMYLASE; Value: 91; Range: 25-115; Units: U/L; Status: F Lab Order: C REACTIVE PROTEIN QUANTITATIV; SPEC'M 11/27/16 12:29 Test: C REACTIVE PROTEIN QUANTITATIV; Value: 1.77; Range: 0.00-0.30; Abnormal: Above high normal; Units: MG/DL; Status: F Radiology Order: Chest, 1 View Test: Chest, 1 View REASON FOR EXAMINATION: hypotension; AP PORTABLE CHEST: 11/27/2016.; ; Clinical history: Hypotension.; ; Comparison: 10/19/2016, 08/28/2016.; ; Findings: Lungs are hyperinflated with somewhat flattened diaphragms. No dense; consolidation or definite effusion. No parenchymal mass. Heart mildly enlarged.; There is mild venous hypertension without pulmonary edema, pleural effusion or; definite infiltrate. There is no widening of the mediastinum. Airway intact.; Aorta normal.; ; Impression:; ; 1. Hyperinflation and some basilar fibrotic change with mild cardiomegaly,; venous hypertension but no cassidy edema. I see no dense consolidation or; effusion.; ; ; Signed by; Cal Kirkpatrick MD 11/27/2016 03:12 P; Radiology Order: CT ABD & PELVIS: No Contrast Test: CT ABD & PELVIS: No Contrast REASON FOR EXAMINATION: sepsis, ?diverticulitis; CT ABDOMEN AND PELVIS WITHOUT CONTRAST: 11/27/2016.; ; Clinical history: Sepsis, possible diverticulitis.; ; Comparison: Noncontrast CT 06/02/2016.; ; Findings:; ; Abdomen: The noncontrast images show lung bases clear without effusion or; infiltrate. Heart is mildly enlarged. No pericardial thickening or effusion and; no hiatal hernia. There is hepatomegaly with at least an 18 cm vertical diameter; of the liver in the right midclavicular line. Left hepatic lobe also mildly; prominent. There is no splenomegaly, focal hepatic or splenic lesion nor; intrahepatic biliary dilatation. Gallbladder shows no calcified stone or mass.; Pancreas shows no mass, ductal dilatation or inflammatory change. Adrenal glands; grossly intact with slight thickening of limbs suggesting adrenal hyperplasia.; The right kidney showed no hydronephrosis, stone or mass. The left kidney shows; a staghorn calculus in the interpolar and lower pole region measuring up to 4.6 x; 2.4 x 2.1 cm in its greatest diameter, it has a dumbbell shape with a larger; component at that renal sinus and hilus. Some mild hydronephrosis in the upper; pole. The ureter on both sides is without dilatation or stone. No ureteral; displacement or periureteral inflammatory change. The aorta has atherosclerotic; calcifications without aneurysm. There are small periaortic and mesenteric nodes; not felt to be definite pathologic small bowel loops were intact. The colon show; of the right colon flexures and transverse colon intact. The proximal left colon; unremarkable. Distal left colon shows increasingly severe diverticulosis similar; to previous study. I see no free air or perforation in the abdomen or pelvis on; lung window review of all CT slices. The bone windows show lumbar and lower; thoracic spine without compression deformity. There is some minor hypertrophic; facet changes. Visualized ribs intact.; ; CT pelvis: Hips, SI joints, sacrum, iliac wings were intact. There are old; post-traumatic changes of the symphysis pubis and superior pubic ramus on the; right. The distal ureters are without dilatation or stone. Uterus tilted; towards the left but not enlarged. Gastelum catheter balloon is seen inflated in; the bladder with the bladder empty. No pelvic mass or adenopathy. The distal; left colon and sigmoid show extensive and severe diverticulosis, it is difficult; to entirely exclude some degree of diverticulitis and I do suspect it. Small; bowel loops in the pelvis unremarkable. Appendix is seen and normal. That; extends medially and upward from its origin near the cecal tip. No inguinal; hernia or adenopathy. Small midline ventral hernia in the suprapubic region.; ; No other findings.; ; Impression:; ; 1. Staghorn calculus in the left kidney collecting system as on the previous; study it is dumbbell shaped larger at the renal sinus and hilus and up to 4.6 x; 2.4 x 2.1 cm. Some hydronephrosis of the upper pole. No other stones,; hydroureter, ureteral stone or right renal calculus or hydro. This could; certainly be a cause for sepsis and UTI.; ; 2. Severe distal left colonic and sigmoid diverticulosis. There may be some; mild diverticulitis in the distal left colon and proximal sigmoid. No; perforation, abscess or free air, however.; ; 3. Small ventral hernia midline suprapubic region as before. A small knuckle of; small bowel loops.; ; 4. Hepatomegaly without focal hepatic, splenic, pancreatic or adrenal acute; finding. No other significant or acute finding.; ; ; Signed by; Cal Kirkpatrick MD 11/27/2016 03:13 P; Outcome: 14:56 Decision to Hospitalize by Provider. pc 18:05 Discharge Assessment: Patient awake, alert and oriented x 3. No cognitive and/or dy functional deficits noted. Patient verbalized understanding of disposition instructions. patient administered narcotics - no. The following High Risk Discharge criteria are identified: None. Admitted to ICU accompanied by nurse, accompanied by tech, via stretcher, on monitor, with chart. Condition: improved. CT Study completed. Property :Personal belongings accompany Pt. 18:07 Patient left the ED. dy Signatures: Dispatcher [employer] EDMS Adolph River MD MD pc Kamilla Babin, Timothy Reg Donn Velasquez RN RN dy Barney, Michael B RN RN mlb1 Allison Andrews RN RN [place] mm15 Kailey Humphries, MEDICAL RECRUITER MEDICAL RECRUITER daviep Cruz Giron rn1 Corrections: (The following items were deleted from the chart) 12:22 12:21 BP 64 / 49; elp elp 12:45 12:28 Allergies: no known allergies; mlb1 pml : 12:28 Home Meds: Cipro 500 mg Oral tab 1 tab every 12 hours; mlb1 pml 12:28 Home Meds: prednisone 5 mg Oral TbEC three times a day; mlb1 pml 12:28 Home Meds: Xanax 1 mg Oral tab four times a day; mlb1 pml 16:26 14:30 General: resting on stretcher, resps easy and unlabored, skin p/w/d. sinus rhythm pml on monitor. gastelum to gravity drainage with urine output. pml Chart Complete MTDD
--- NOTE | 2016-11-29 19:08 | EDDOCDS ---
Physician Documentation [facility] Name: Allison Weiss Age: 61 yrs Sex: Female : 1955 Arrival Date: 11/27/2016 Time: 12:17 Bed 3 Private MD: Khadijah Thomas Disposition: 11/27 14:52 Critical Care:. pc Disposition: 11/27/16 14:56 Hospitalization ordered by Mani Robles for Inpatient Admission. Preliminary diagnosis are Sepsis, unspecified organism, Discitis, unspecified, lumbar region - suspected, Calculus of kidney - staghorn, left without significant changes from prior CTs, Diverticulosis of large intestine without perforation or abscess without bleeding. - Bed requested for M ICU. - Status is Inpatient Admission. dy - Condition is Stable. - Problem is new. - Symptoms have improved. HPI: 12:58 This 61 yrs old Female presents to ER via Walkin/Carried/Asstd with pc complaints of Nausea/Vomiting, Abdominal Pain. 12:58 The history is obtained from the patient. She presented 1 week ago with n/v, lower pc abdominal pain and hypotension, was diagnosed with a UTI and started on ABX and IVF. She has continued to have abdominal pain, n/v. She felt she was constipated because she could not have a bowel movement for 3 days so she took Miralax, which has caused watery stooling. She denies any fevers or chills. She complains of back pain. At their worst, the symptoms were severe. In the emergency department, the symptoms are unchanged. The patient has not experienced similar symptoms in the past. The patient has been recently been admitted at [facility], was discharged last month, for sepsis. Historical: - Allergies: no known allergies; - Home Meds: 1. Carafate 1 gram Oral tab three times a day 2. furosemide 40 mg Oral tab once daily 3. hydrocodone-acetaminophen 5-325 mg Oral tab every 8 hours as needed 4. lisinopril 10 mg Oral tab 1 tab once daily 5. metformin 500 mg Oral tab 2 tabs 2 times per day 6. Oxygen 1.5 liters at night as needed 7. potassium chloride 20 mEq Oral TbER once daily 8. Flagyl 500 mg Oral tab 1 tab 2 times per day 9. Prednisone Oral dose pack 10. Keflex 500 mg Oral cap 1 cap every 6 hours 11. Zofran (as hydrochloride) 4 mg Oral tab 4 mg every 8 hours 12. hydroxyzine HCl 25 mg Oral tab 1 tab 3 times per day 13. alprazolam 1 mg Oral tab 1 tab 3 times per day 14. Sertraline 50 mg daily - PMHx: CHF; COPD; Diabetes - NIDDM: controlled; Diverticulosis; - PSHx: cyst removed leg; - Social history: Smoking status: Patient states former smoker of tobacco. No barriers to communication noted, The patient speaks fluent Spanish, Speaks appropriately for age. - Family history: Not pertinent. - : The pt / caregiver states he / she is not on anticoagulants. Home medication list is obtained from the patient. - Exposure Risk Screening:: None identified. - Immunization history:: All immunizations up-to-date. - Social history:: the patient is a former smoker, the patient does not drink alcohol. ROS: 13:10 All systems are negative except as listed. pc Exam: 13:10 General Appearance: alert, the patient is in mild distress, despite a SBP of 60-75, she pc awake alert and joking with staff. 13:10 EENT: normal eye inspection, ears, nose and throat normal, pharynx normal, mucous membranes moist 13:10 Neck: The exam reveals no acute abnormalities. ROM is normal and painless. No nuchal rigidity is noted.. 13:10 Respiratory: normal breath sounds, chest non-tender, Respirations/effort: tachypnea. 13:10 CVS: regular rhythm, normal S1 and S2, no murmurs, strong peripheral pulses, normal capillary refill, the patient is tachycardic, at 110 bpm. 13:10 Abdomen: soft, no organomegaly, severe tenderness in the right lower quadrant and left lower quadrant, with rebound, involuntary guarding is elicited in the right lower quadrant and left lower quadrant, bowel sounds diminished. 13:10 Back: normal inspection, Pain is noted in the lumbar area, over L2-4. 13:10 Skin: skin color is normal, warm, dry, the skin turgor is poor. 13:10 Extremities: The extremities have a grossly normal appearance, are non-tender, without acute ROM abnormalities. 13:10 Neuro: oriented x 3, cranial nerves normal as tested, no motor deficits, no sensory deficits. 13:10 Psych: normal mood. Vital Signs: 12:18 BP 77 / 59 RA Sitting (auto/lg); Pulse 126; Resp 24; Temp 98.7(O); Pulse Ox 96% on R/A; elp Weight 84.82 kg / 187 lbs (R); Height 5 ft. 5 in. (165.10 cm) (R); 12:18 BP 49 / 41 RA Sitting (auto/lg); elp 12:21 BP 64 / 49 LA Sitting (auto/reg); elp 12:24 BP 70 / 43 (auto/); pml 12:27 Pulse 122 MON; Pulse Ox 93% ; pml 12:29 BP 70 / 52 LA Supine (man/lg); pml 12:30 Pulse 119 MON; Pulse Ox 93% ; pml 12:30 BP 75 / 45 (auto/); pml 12:40 Pulse 110 MON; Pulse Ox 92% ; pml 12:40 BP 80 / 51 (auto/); pml 12:50 Pulse 107 MON; Pulse Ox 86% ; pml 12:50 BP 86 / 62 (auto/); pml 13:00 Pulse 105 MON; Pulse Ox 97% ; pml 13:00 BP 94 / 53 (auto/); pml 13:10 Pulse 102 MON; Pulse Ox 100% ; pml 13:10 BP 82 / 44 (auto/); pml 13:20 Pulse 102 MON; Pulse Ox 98% ; pml 13:20 BP 76 / 46 (auto/); pml 13:30 Pulse 102 MON; Pulse Ox 98% ; pml 13:30 BP 85 / 54 (auto/); pml 13:33 Pulse 103 MON; Pulse Ox 97% ; pml 13:40 BP 87 / 52 (auto/); pml 13:50 Pulse 107 MON; Pulse Ox 98% ; pml 13:50 BP 87 / 50 (auto/); pml 14:00 Pulse 105 MON; Pulse Ox 97% ; pml 14:00 BP 85 / 52 (auto/); pml 14:10 Pulse 106 MON; Pulse Ox 97% ; pml 14:10 BP 92 / 54 (auto/); pml 14:16 BP 72 / 48; pml 14:20 Pulse 104 MON; Pulse Ox 97% ; pml 14:20 BP 93 / 55 (auto/); pml 14:30 Pulse 101 MON; Pulse Ox 97% ; pml 14:30 BP 90 / 52 (auto/); pml 14:40 Pulse 99 MON; Pulse Ox 96% ; pml 14:40 BP 90 / 51 (auto/); pml 14:50 Pulse 100 MON; Pulse Ox 95% ; pml 14:50 BP 95 / 55 (auto/); pml 15:10 Pulse 98 MON; Pulse Ox 95% ; pml 15:10 BP 98 / 55 (auto/); pml 15:20 Pulse 98 MON; Pulse Ox 94% ; pml 15:20 BP 103 / 57 (auto/); pml 15:30 Pulse 100 MON; Pulse Ox 95% ; pml 15:30 BP 100 / 56 (auto/); pml 15:38 Temp 98.2; pml 15:40 Pulse 101 MON; Pulse Ox 96% ; pml 15:40 BP 87 / 53 (auto/); pml 15:50 Pulse 99 MON; Pulse Ox 95% ; pml 15:50 BP 89 / 53 (auto/); pml 16:00 Pulse 98 MON; Pulse Ox 97% ; pml 16:00 BP 81 / 47 (auto/); pml 16:10 Pulse 98 MON; Pulse Ox 95% ; pml 16:10 BP 92 / 54 (auto/); pml 16:20 Pulse 98 MON; Pulse Ox 97% ; pml 16:20 BP 94 / 52 (auto/); pml 16:30 Pulse 96 MON; Pulse Ox 97% ; dy 16:30 BP 92 / 50 (auto/); dy 16:40 Pulse 97 MON; Pulse Ox 97% ; dy 16:40 BP 97 / 55 (auto/); dy 16:50 BP 100 / 55 (auto/); dy 16:50 Pulse 97 MON; Pulse Ox 95% ; dy 17:00 Pulse 95 MON; Pulse Ox 96% ; dy 17:00 BP 96 / 55 (auto/); dy 17:10 Pulse 95 MON; Pulse Ox 96% ; dy 17:10 BP 90 / 54 (auto/); dy 17:20 Pulse 96 MON; Pulse Ox 97% ; dy 17:20 BP 94 / 51 (auto/); dy 17:30 Pulse 97 MON; Pulse Ox 97% ; dy 17:30 BP 92 / 46 (auto/); dy 17:40 Pulse 96 MON; Pulse Ox 98% ; dy 17:40 BP 95 / 51 (auto/); dy 17:50 Pulse 96 MON; Pulse Ox 94% ; dy 17:50 BP 99 / 57 (auto/); dy 18:05 BP 94 / 57; Pulse 94; Resp 20; Temp 98.3; Pulse Ox 99% on R/A; dy 12:18 Body Mass Index 31.12 (84.82 kg, 165.10 cm) elp MDM: 12:39 IV Saline Lock x 2 ordered. pc 12:39 Rivet Tapping Machine Operator/Pulse Ox/q 15 min VS ordered. pc 12:39 NS 0.9% 1000 ml IV at bolus once ordered. pc 12:39 Ondansetron 4 mg IVP once ordered. pc 12:40 CBC with Diff Ordered. EDMS 12:40 MED Profile Ordered. EDMS 12:40 Liver Profile Ordered. EDMS 12:40 Lactic Acid (Richards tube on ice) Ordered. EDMS 12:40 Venous Blood Gas (large pea green tube on ice) Ordered. EDMS 12:41 Manuel ordered. pc 12:41 ECG WITH READING ER PHYS+CARDIAG ordered. EDMS 12:42 CIP Ordered. EDMS 12:42 Troponin Ordered. EDMS 12:42 Pt & Aptt Ordered. EDMS 12:43 Chest, 1 View Ordered. EDMS 13:10 Differential Diagnosis: hypotension, dehydration, severe lower abdominal pain r/o pc diverticulitis with abscess or perforation, COPD. Plan: IVF, labs, imaging, meds. Test interpretation: EKG. 13:20 CBC with Diff Reviewed. pc 13:20 MED Profile Reviewed. pc 13:20 Liver Profile Reviewed. pc 13:20 Lactic Acid (Richards tube on ice) Reviewed. pc 13:20 Venous Blood Gas (large pea green tube on ice) Reviewed. pc 13:20 CIP Reviewed. pc 13:20 Pt & Aptt Reviewed. pc 13:20 Troponin Reviewed. pc 13:23 NS 0.9% (Sepsis- hypotension or lactate >4mmol/L, 30ml/kg) 2500 ml/kg IV at bolus once; pc Give in 500mL aliquots, assess for rales after each, inform provider ordered. 13:23 -Blood Culture (Adults Only), peripheral from different site, or from device/port/PICC pc etc. if present ordered. 13:23 Oxygen at 4L/Min NC or Home dosage ordered. pc 13:23 Intake and Output Hourly ordered. pc 13:24 -Blood Culture Ordered. EDMS 13:24 Urine Culture Ordered. EDMS 13:24 Type & Screen Ordered. EDMS 13:24 Urinalysis Ordered. EDMS 13:24 -Blood Culture (Adults Only), peripheral from different site, or from device/port/PICC deg etc. if present complete. 13:25 BLOOD CULTURES Ordered. EDMS 13:27 CT ABD & PELVIS: No Contrast Ordered. EDMS 13:31 Piperacillin-Tazobactam 3.375 grams IVPB once over 30 mins; dilute in 50mL of NS or pc D5W. Renal dosed for GFR 33 ordered. 13:33 Financial registration complete. mm15 13:33 AMYLASE Ordered. EDMS 13:33 C REACTIVE PROTEIN QUANTITATIV Ordered. EDMS 14:09 MED Profile Reviewed. pc 14:09 Liver Profile Reviewed. pc 14:09 C REACTIVE PROTEIN QUANTITATIV Reviewed. pc 14:09 AMYLASE Reviewed. pc 14:21 CT Spine, Lumbar W/o Contrast Ordered. EDMS 14:39 fentaNYL (PF) 12.5 mcg IVP once ordered. pc 14:46 Data reviewed: old medical records, vital signs, nurses notes, EKG(s), lab test pc results, all radiology studies and available results. Test interpretation: LAB - all labs as ordered have been reviewed, interpreted and considered in the overall management of the clinical presentation; X-RAY - interpreted by Radiologist and personally reviewed, 1 view chest no acute disease, interpreted by Radiologist and personally reviewed, Abdomen/Pelvis CT; unchanged large left renal staghorn calculus, extensive diverticulosis with minimal, if any, diverticulitis, other caro unremarkable. The patient has been re-examined and re-evaluated. The patient's symptoms have markedly improved after treatment, with her MAP 69, her pulse 100. Physician consultation: Dr. Mani Robles was contacted at 14:48, regarding admission, and will see patient in ED, shortly. 14:52 Physician consultation: Dr. Giancarlo Gomez regarding consult, and will see patient in inpatient room, if requested by Hospitalist service . Disposition: The historical points, examination findings, and any diagnostic results supporting the provided diagnosis, were discussed with the patient or legal guardian. The need for further work-up and/or treatment in the hospital was explained. 14:53 BED REQUEST+ADM ordered. EDMS 15:21 [facility] [place] was scanned into [employer] and attached to record. mm15 16:01 PHYSICAL THERAPY EVAL & TREAT ordered. EDMS 16:02 Admission / Observation Status ordered. EDMT 11/29 10:25 ECG/EKG was scanned into [employer] and attached to record. EC/11 13:10 Rate is 105 beats/min. Rhythm is regular, Sinus tachycardia. QRS [place] is Normal. [place] pc interval is normal. QRS interval is normal. QT interval is normal. No Q waves. T waves are Inverted in leads V1, V2. ST Segment is depressed in leads V3, V4, <1mm. Clinical impression: Sinus tachycardia, Nonspecific ST-T changes, and Incomplete RBBB. No change from previous ECG in August,. Administered Medications: 12:40 Drug: NS 0.9% 1000 ml [sodium chloride 0.9 % injection syringe] Route: IV; Rate: bolus; pml Site: left antecubital; 13:16 Follow up: IV Status: Completed infusion; IV Intake: 1000ml pml 12:40 Drug: Ondansetron 4 mg [ondansetron HCl 2 mg/mL intravenous solution (2 mL)] Route: pml IVP; Site: left antecubital; 13:26 Drug: NS 0.9% (Sepsis- hypotension or lactate >4mmol/L, 30ml/kg) [id number] mL Route: IV; pml Rate: bolus; Site: left antecubital; 14:30 Follow up: IV Status: Completed infusion; IV Intake: 2500ml dy 13:30 CANCELLED (Other Intervention Used): Piperacillin-Tazobactam 0.35 grams IVPB once over pc 30 mins; dilute in 50mL of NS or D5W. Renal dosed for GFR 33 13:49 Drug: Piperacillin-Tazobactam 3.375 grams [piperacillin-tazobactam 3.375 gram pml intravenous solution] Route: IVPB; Infused Over: 30 mins; Site: left antecubital; 14:50 Follow up: IV Status: Completed infusion dy 14:42 Drug: fentaNYL (PF) 12.5 mcg [fentanyl (PF) 50 mcg/mL injection solution (0.25 mL)] pml Route: IVP; Site: right antecubital; 15:00 Follow up: Response: Confirmed pt not driving.; Pain is decreased dy Critical Care Time: 14:52 Critical care time: Bedside Care: 35 minutes, Consultation: 20 minutes, Family pc Intervention: 25 minutes. Total time: 80 minutes Signatures: Dispatcher [employer] EDMS Adolph River MD MD pc Aniya Encarnacion, [employer] deg Kamilla Babin, Reg Reg gb Donn Rodriguez, Power Gross RN, RN RN mlb1 Allison Andrews,RN RN pml [place] mm15 The chart was reviewed and I authenticate all verbal orders and agree with the evaluation and treatment provided.Corrections: (The following items were deleted from the chart) 12:45 12:28 Allergies: no known allergies; mlb1 pml 12:45 12:28 Home Meds: Cipro 500 mg Oral tab 1 tab every 12 hours; [facility] pml 12:45 12:28 Home Meds: prednisone 5 mg Oral TbEC three times a day; [facility] pml 12:45 12:28 Home Meds: Xanax 1 mg Oral tab four times a day; [facility] pml 13:30 13:30 Piperacillin-Tazobactam 0.35 grams IVPB once over 30 mins; dilute in 50mL of NS pc or D5W. Renal dosed for GFR 33 ordered. pc 13:35 13:24 AMYLASE+LAB ordered. EDMS EDMS 13:35 13:24 C REACTIVE PROTEIN QUANTITATIV+LAB ordered. EDMS EDMS 14:25 13:10 Back: normal inspection, pc pc Attachments: 15:21 [facility] Payment Agreement mm15 11/29 10:25 ECG/EKG gb Chart Complete MTDD
--- NOTE | 2016-11-29 19:08 | EDDOCDS ---
Physician Documentation [facility] Name: Allison Weiss Age: 61 yrs Sex: Female : 1955 Arrival Date: 11/27/2016 Time: 12:17 Bed 3 Private MD: Khadijah Thomas Disposition: 11/27 14:52 Critical Care:. pc Disposition: 11/27/16 14:56 Hospitalization ordered by Mani Robles for Inpatient Admission. Preliminary diagnosis are Sepsis, unspecified organism, Discitis, unspecified, lumbar region - suspected, Calculus of kidney - staghorn, left without significant changes from prior CTs, Diverticulosis of large intestine without perforation or abscess without bleeding. - Bed requested for M ICU. - Status is Inpatient Admission. dy - Condition is Stable. - Problem is new. - Symptoms have improved. HPI: 12:58 This 61 yrs old Female presents to ER via Walkin/Carried/Asstd with pc complaints of Nausea/Vomiting, Abdominal Pain. 12:58 The history is obtained from the patient. She presented 1 week ago with n/v, lower pc abdominal pain and hypotension, was diagnosed with a UTI and started on ABX and IVF. She has continued to have abdominal pain, n/v. She felt she was constipated because she could not have a bowel movement for 3 days so she took Miralax, which has caused watery stooling. She denies any fevers or chills. She complains of back pain. At their worst, the symptoms were severe. In the emergency department, the symptoms are unchanged. The patient has not experienced similar symptoms in the past. The patient has been recently been admitted at [facility], was discharged last month, for sepsis. Historical: - Allergies: no known allergies; - Home Meds: 1. Carafate 1 gram Oral tab three times a day 2. furosemide 40 mg Oral tab once daily 3. hydrocodone-acetaminophen 5-325 mg Oral tab every 8 hours as needed 4. lisinopril 10 mg Oral tab 1 tab once daily 5. metformin 500 mg Oral tab 2 tabs 2 times per day 6. Oxygen 1.5 liters at night as needed 7. potassium chloride 20 mEq Oral TbER once daily 8. Flagyl 500 mg Oral tab 1 tab 2 times per day 9. Prednisone Oral dose pack 10. Keflex 500 mg Oral cap 1 cap every 6 hours 11. Zofran (as hydrochloride) 4 mg Oral tab 4 mg every 8 hours 12. hydroxyzine HCl 25 mg Oral tab 1 tab 3 times per day 13. alprazolam 1 mg Oral tab 1 tab 3 times per day 14. Sertraline 50 mg daily - PMHx: CHF; COPD; Diabetes - NIDDM: controlled; Diverticulosis; - PSHx: cyst removed leg; - Social history: Smoking status: Patient states former smoker of tobacco. No barriers to communication noted, The patient speaks fluent Mongolian, Speaks appropriately for age. - Family history: Not pertinent. - : The pt / caregiver states he / she is not on anticoagulants. Home medication list is obtained from the patient. - Exposure Risk Screening:: None identified. - Immunization history:: All immunizations up-to-date. - Social history:: the patient is a former smoker, the patient does not drink alcohol. ROS: 13:10 All systems are negative except as listed. pc Exam: 13:10 General Appearance: alert, the patient is in mild distress, despite a SBP of 60-75, she pc awake alert and joking with staff. 13:10 EENT: normal eye inspection, ears, nose and throat normal, pharynx normal, mucous membranes moist 13:10 Neck: The exam reveals no acute abnormalities. ROM is normal and painless. No nuchal rigidity is noted.. 13:10 Respiratory: normal breath sounds, chest non-tender, Respirations/effort: tachypnea. 13:10 CVS: regular rhythm, normal S1 and S2, no murmurs, strong peripheral pulses, normal capillary refill, the patient is tachycardic, at 110 bpm. 13:10 Abdomen: soft, no organomegaly, severe tenderness in the right lower quadrant and left lower quadrant, with rebound, involuntary guarding is elicited in the right lower quadrant and left lower quadrant, bowel sounds diminished. 13:10 Back: normal inspection, Pain is noted in the lumbar area, over L2-4. 13:10 Skin: skin color is normal, warm, dry, the skin turgor is poor. 13:10 Extremities: The extremities have a grossly normal appearance, are non-tender, without acute ROM abnormalities. 13:10 Neuro: oriented x 3, cranial nerves normal as tested, no motor deficits, no sensory deficits. 13:10 Psych: normal mood. Vital Signs: 12:18 BP 77 / 59 RA Sitting (auto/lg); Pulse 126; Resp 24; Temp 98.7(O); Pulse Ox 96% on R/A; elp Weight 84.82 kg / 187 lbs (R); Height 5 ft. 5 in. (165.10 cm) (R); 12:18 BP 49 / 41 RA Sitting (auto/lg); elp 12:21 BP 64 / 49 LA Sitting (auto/reg); elp 12:24 BP 70 / 43 (auto/); pml 12:27 Pulse 122 MON; Pulse Ox 93% ; pml 12:29 BP 70 / 52 LA Supine (man/lg); pml 12:30 Pulse 119 MON; Pulse Ox 93% ; pml 12:30 BP 75 / 45 (auto/); pml 12:40 Pulse 110 MON; Pulse Ox 92% ; pml 12:40 BP 80 / 51 (auto/); pml 12:50 Pulse 107 MON; Pulse Ox 86% ; pml 12:50 BP 86 / 62 (auto/); pml 13:00 Pulse 105 MON; Pulse Ox 97% ; pml 13:00 BP 94 / 53 (auto/); pml 13:10 Pulse 102 MON; Pulse Ox 100% ; pml 13:10 BP 82 / 44 (auto/); pml 13:20 Pulse 102 MON; Pulse Ox 98% ; pml 13:20 BP 76 / 46 (auto/); pml 13:30 Pulse 102 MON; Pulse Ox 98% ; pml 13:30 BP 85 / 54 (auto/); pml 13:33 Pulse 103 MON; Pulse Ox 97% ; pml 13:40 BP 87 / 52 (auto/); pml 13:50 Pulse 107 MON; Pulse Ox 98% ; pml 13:50 BP 87 / 50 (auto/); pml 14:00 Pulse 105 MON; Pulse Ox 97% ; pml 14:00 BP 85 / 52 (auto/); pml 14:10 Pulse 106 MON; Pulse Ox 97% ; pml 14:10 BP 92 / 54 (auto/); pml 14:16 BP 72 / 48; pml 14:20 Pulse 104 MON; Pulse Ox 97% ; pml 14:20 BP 93 / 55 (auto/); pml 14:30 Pulse 101 MON; Pulse Ox 97% ; pml 14:30 BP 90 / 52 (auto/); pml 14:40 Pulse 99 MON; Pulse Ox 96% ; pml 14:40 BP 90 / 51 (auto/); pml 14:50 Pulse 100 MON; Pulse Ox 95% ; pml 14:50 BP 95 / 55 (auto/); pml 15:10 Pulse 98 MON; Pulse Ox 95% ; pml 15:10 BP 98 / 55 (auto/); pml 15:20 Pulse 98 MON; Pulse Ox 94% ; pml 15:20 BP 103 / 57 (auto/); pml 15:30 Pulse 100 MON; Pulse Ox 95% ; pml 15:30 BP 100 / 56 (auto/); pml 15:38 Temp 98.2; pml 15:40 Pulse 101 MON; Pulse Ox 96% ; pml 15:40 BP 87 / 53 (auto/); pml 15:50 Pulse 99 MON; Pulse Ox 95% ; pml 15:50 BP 89 / 53 (auto/); pml 16:00 Pulse 98 MON; Pulse Ox 97% ; pml 16:00 BP 81 / 47 (auto/); pml 16:10 Pulse 98 MON; Pulse Ox 95% ; pml 16:10 BP 92 / 54 (auto/); pml 16:20 Pulse 98 MON; Pulse Ox 97% ; pml 16:20 BP 94 / 52 (auto/); pml 16:30 Pulse 96 MON; Pulse Ox 97% ; dy 16:30 BP 92 / 50 (auto/); dy 16:40 Pulse 97 MON; Pulse Ox 97% ; dy 16:40 BP 97 / 55 (auto/); dy 16:50 BP 100 / 55 (auto/); dy 16:50 Pulse 97 MON; Pulse Ox 95% ; dy 17:00 Pulse 95 MON; Pulse Ox 96% ; dy 17:00 BP 96 / 55 (auto/); dy 17:10 Pulse 95 MON; Pulse Ox 96% ; dy 17:10 BP 90 / 54 (auto/); dy 17:20 Pulse 96 MON; Pulse Ox 97% ; dy 17:20 BP 94 / 51 (auto/); dy 17:30 Pulse 97 MON; Pulse Ox 97% ; dy 17:30 BP 92 / 46 (auto/); dy 17:40 Pulse 96 MON; Pulse Ox 98% ; dy 17:40 BP 95 / 51 (auto/); dy 17:50 Pulse 96 MON; Pulse Ox 94% ; dy 17:50 BP 99 / 57 (auto/); dy 18:05 BP 94 / 57; Pulse 94; Resp 20; Temp 98.3; Pulse Ox 99% on R/A; dy 12:18 Body Mass Index 31.12 (84.82 kg, 165.10 cm) elp MDM: 12:39 IV Saline Lock x 2 ordered. pc 12:39 Supervisor Pipe Manufacture/Pulse Ox/q 15 min VS ordered. pc 12:39 NS 0.9% 1000 ml IV at bolus once ordered. pc 12:39 Ondansetron 4 mg IVP once ordered. pc 12:40 CBC with Diff Ordered. EDMS 12:40 MED Profile Ordered. EDMS 12:40 Liver Profile Ordered. EDMS 12:40 Lactic Acid (Richards tube on ice) Ordered. EDMS 12:40 Venous Blood Gas (large pea green tube on ice) Ordered. EDMS 12:41 Manuel ordered. pc 12:41 ECG WITH READING ER PHYS+CARDIAG ordered. EDMS 12:42 CIP Ordered. EDMS 12:42 Troponin Ordered. EDMS 12:42 Pt & Aptt Ordered. EDMS 12:43 Chest, 1 View Ordered. EDMS 13:10 Differential Diagnosis: hypotension, dehydration, severe lower abdominal pain r/o pc diverticulitis with abscess or perforation, COPD. Plan: IVF, labs, imaging, meds. Test interpretation: EKG. 13:20 CBC with Diff Reviewed. pc 13:20 MED Profile Reviewed. pc 13:20 Liver Profile Reviewed. pc 13:20 Lactic Acid (Richards tube on ice) Reviewed. pc 13:20 Venous Blood Gas (large pea green tube on ice) Reviewed. pc 13:20 CIP Reviewed. pc 13:20 Pt & Aptt Reviewed. pc 13:20 Troponin Reviewed. pc 13:23 NS 0.9% (Sepsis- hypotension or lactate >4mmol/L, 30ml/kg) 2500 ml/kg IV at bolus once; pc Give in 500mL aliquots, assess for rales after each, inform provider ordered. 13:23 -Blood Culture (Adults Only), peripheral from different site, or from device/port/PICC pc etc. if present ordered. 13:23 Oxygen at 4L/Min NC or Home dosage ordered. pc 13:23 Intake and Output Hourly ordered. pc 13:24 -Blood Culture Ordered. EDMS 13:24 Urine Culture Ordered. EDMS 13:24 Type & Screen Ordered. EDMS 13:24 Urinalysis Ordered. EDMS 13:24 -Blood Culture (Adults Only), peripheral from different site, or from device/port/PICC deg etc. if present complete. 13:25 BLOOD CULTURES Ordered. EDMS 13:27 CT ABD & PELVIS: No Contrast Ordered. EDMS 13:31 Piperacillin-Tazobactam 3.375 grams IVPB once over 30 mins; dilute in 50mL of NS or pc D5W. Renal dosed for GFR 33 ordered. 13:33 Financial registration complete. mm15 13:33 AMYLASE Ordered. EDMS 13:33 C REACTIVE PROTEIN QUANTITATIV Ordered. EDMS 14:09 MED Profile Reviewed. pc 14:09 Liver Profile Reviewed. pc 14:09 C REACTIVE PROTEIN QUANTITATIV Reviewed. pc 14:09 AMYLASE Reviewed. pc 14:21 CT Spine, Lumbar W/o Contrast Ordered. EDMS 14:39 fentaNYL (PF) 12.5 mcg IVP once ordered. pc 14:46 Data reviewed: old medical records, vital signs, nurses notes, EKG(s), lab test pc results, all radiology studies and available results. Test interpretation: LAB - all labs as ordered have been reviewed, interpreted and considered in the overall management of the clinical presentation; X-RAY - interpreted by Radiologist and personally reviewed, 1 view chest no acute disease, interpreted by Radiologist and personally reviewed, Abdomen/Pelvis CT; unchanged large left renal staghorn calculus, extensive diverticulosis with minimal, if any, diverticulitis, other caro unremarkable. The patient has been re-examined and re-evaluated. The patient's symptoms have markedly improved after treatment, with her MAP 69, her pulse 100. Physician consultation: Dr. Mani Robles was contacted at 14:48, regarding admission, and will see patient in ED, shortly. 14:52 Physician consultation: Dr. Giancarlo Gomez regarding consult, and will see patient in inpatient room, if requested by Hospitalist service . Disposition: The historical points, examination findings, and any diagnostic results supporting the provided diagnosis, were discussed with the patient or legal guardian. The need for further work-up and/or treatment in the hospital was explained. 14:53 BED REQUEST+ADM ordered. EDMS 15:21 [facility] [place] Payment Agreement was scanned into [employer] and attached to record. mm15 16:01 PHYSICAL THERAPY EVAL & TREAT ordered. EDMS 16:02 Admission / Observation Status ordered. EDDC 11/29 10:25 ECG/EKG was scanned into [employer] and attached to record. EC/11 13:10 Rate is 105 beats/min. Rhythm is regular, Sinus tachycardia. QRS [place] is Normal. OR pc interval is normal. QRS interval is normal. QT interval is normal. No Q waves. T waves are Inverted in leads V1, V2. ST Segment is depressed in leads V3, V4, <1mm. Clinical impression: Sinus tachycardia, Nonspecific ST-T changes, and Incomplete RBBB. No change from previous ECG in August,. Administered Medications: 12:40 Drug: NS 0.9% 1000 ml [sodium chloride 0.9 % injection syringe] Route: IV; Rate: bolus; pml Site: left antecubital; 13:16 Follow up: IV Status: Completed infusion; IV Intake: 1000ml pml 12:40 Drug: Ondansetron 4 mg [ondansetron HCl 2 mg/mL intravenous solution (2 mL)] Route: pml IVP; Site: left antecubital; 13:26 Drug: NS 0.9% (Sepsis- hypotension or lactate >4mmol/L, 30ml/kg) 334960 mL Route: IV; pml Rate: bolus; Site: left antecubital; 14:30 Follow up: IV Status: Completed infusion; IV Intake: 2500ml dy 13:30 CANCELLED (Other Intervention Used): Piperacillin-Tazobactam 0.35 grams IVPB once over pc 30 mins; dilute in 50mL of NS or D5W. Renal dosed for GFR 33 13:49 Drug: Piperacillin-Tazobactam 3.375 grams [piperacillin-tazobactam 3.375 gram pml intravenous solution] Route: IVPB; Infused Over: 30 mins; Site: left antecubital; 14:50 Follow up: IV Status: Completed infusion dy 14:42 Drug: fentaNYL (PF) 12.5 mcg [fentanyl (PF) 50 mcg/mL injection solution (0.25 mL)] pml Route: IVP; Site: right antecubital; 15:00 Follow up: Response: Confirmed pt not driving.; Pain is decreased dy Critical Care Time: 14:52 Critical care time: Bedside Care: 35 minutes, Consultation: 20 minutes, Family pc Intervention: 25 minutes. Total time: 80 minutes Signatures: Dispatcher [employer] EDMS Adolph River MD MD pc Aniya Encarnacion, Cut Off Machine Operator Unit deg Kamilla Babin, Reg Reg gb Donn Rodriguez, Power Gross RN, RN RN mlb1 Allison Andrews,RN RN pml [place] mm15 The chart was reviewed and I authenticate all verbal orders and agree with the evaluation and treatment provided.Corrections: (The following items were deleted from the chart) 12:45 12:28 Allergies: no known allergies; mlb1 pml 12:45 12:28 Home Meds: Cipro 500 mg Oral tab 1 tab every 12 hours; [facility] pml 12:45 12:28 Home Meds: prednisone 5 mg Oral TbEC three times a day; [facility] pml 12:45 12:28 Home Meds: Xanax 1 mg Oral tab four times a day; [facility] pml 13:30 13:30 Piperacillin-Tazobactam 0.35 grams IVPB once over 30 mins; dilute in 50mL of NS pc or D5W. Renal dosed for GFR 33 ordered. pc 13:35 13:24 AMYLASE+LAB ordered. EDMS EDMS 13:35 13:24 C REACTIVE PROTEIN QUANTITATIV+LAB ordered. EDMS EDMS 14:25 13:10 Back: normal inspection, pc pc Attachments: 15:21 [facility] Payment Agreement mm15 11/29 10:25 ECG/EKG gb Chart Complete MTDD
[2016-11-30] VITALS: BP 141/75
[2016-11-30] MEDS: ACETAMINOPHEN TAB 650MG DOSE (2X325MG) PO PRN ×2 (02:06→22:12)
[2016-11-30] MEDS: PIPERACILLIN/TAZOBACTAM SOD 3.375 GM in D5W MINI-BAG PLUS 50 ML IV SCH ×4 (02:06→21:42)
[2016-11-30] MEDS ORDERED: IPRATROPIUM 0.5MG/ALBUTEROL 2.5MG INH SOL UD 3ML (DUONEB)(J7620) NEB ONE (02:30)
[2016-11-30] MEDS ORDERED: FUROSEMIDE 40 MG TAB PO ONE (02:30)
[2016-11-30] MEDS ORDERED: FUROSEMIDE 40 MG TAB PO SCH (02:30)
[2016-11-30] MEDS: HEPARIN SOD (PORCINE) 5000 UNITS/ML VIAL SC SCH ×3 (06:38→21:42)
[2016-11-30 07:40] LABS: MEAN CORPUSCULAR HEMOGLOBIN 30.4 pg (27.0-33.0); MEAN CORPUSCULAR HGB CONC 31.7 g/dl (32.0-36.5); MEAN CORPUSCULAR VOLUME 96.1 fl (80.0-96.0)
[2016-11-30] MEDS: IPRATROPIUM 0.5MG/ALBUTEROL 2.5MG INH SOL UD 3ML (DUONEB)(J7620) NEB SCH ×3 (07:44→20:13)
[2016-11-30] MEDS: BUDESONIDE 0.5 MG/2 ML INHALATION SUSPENSION INH SCH ×2 (07:44→20:13)
[2016-11-30 08:00] VITALS: BP 138/86
[2016-11-30 08:01] LABS: ALBUMIN 2.8 GM/DL (3.2-5.2); ALKALINE PHOSPHATASE 67 U/L (45-117); ALT/SGPT 20 U/L (12-78); ANION GAP 7 MEQ/L (8-16); AST/SGOT 12 U/L (15-37); BILIRUBIN,TOTAL 0.3 MG/DL (0.2-1.0); BLOOD UREA NITROGEN 5 MG/DL (7-18); CALCIUM LEVEL 8.8 MG/DL (8.8-10.2); CARBON DIOXIDE LEVEL 30 MEQ/L (21-32); CHLORIDE LEVEL 107 MEQ/L (98-107); CREATININE FOR GFR 0.73 MG/DL (0.55-1.02); GLOMERULAR FILTRATION RATE > 60.0 (>45); GLUCOSE, FASTING 145 MG/DL (80-110); POTASSIUM SERUM 3.9 MEQ/L (3.5-5.1); SODIUM LEVEL 144 MEQ/L (136-145); TOTAL PROTEIN 5.9 GM/DL (6.4-8.2)
[2016-11-30] MEDS: PANTOPRAZOLE 40MG INJ (PROTONIX) (C9113) IV SCH (09:01)
[2016-11-30] MEDS: FLUCONAZOLE 100 MG TAB PO SCH (09:01)
[2016-11-30] MEDS: SUCRALFATE 1 GM TAB PO SCH ×3 (09:02→21:43)
[2016-11-30] MEDS: ALPRAZolam 0.5 MG TAB PO SCH ×3 (09:02→21:43)
[2016-11-30] MEDS: FUROSEMIDE 40 MG TAB PO SCH (09:02)
[2016-11-30] MEDS ORDERED: GLUCAGON FOR INJ 1 MG VIAL (J1610) SC PRN (15:30)
[2016-11-30] MEDS ORDERED: DEXTROSE 50% 50 ML SYRINGE IV PRN (15:30)
[2016-11-30] MEDS ORDERED: GLUCOSE 4 GM CHEW TABLET PO PRN (15:30)
[2016-11-30] MEDS ORDERED: hydrOXYzine 25 MG TAB PO PRN (15:30)
--- NOTE | 2016-11-30 15:32 | IPNPDOC ---
Subjective General Date Seen The patient was seen on 11/30/16. Subjective Chief Complaint/HPI The patient is a 61-year-old female admitted with a reason for visit of Severe Sepsis. Constitutional: Denies: Chills, Fever, Night Sweats Cardiovascular: Denies: Chest Pain, Lt Headedness, Orthopnea, Palpitations, Paroxysmal Noc. Dyspnea Gastrointestinal: Denies: Abdominal Pain, Constipation, Diarrhea, Nausea, Vomiting Objective Physical Examination General Exam: Positive: Alert, No Acute Distress Eye Exam: Positive: Conjunctiva & lids normal, EOMI, PERRLA, Negative: Sclera icteric ENT Exam: Positive: Atraumatic, Mucous membr. moist/pink, Pharynx Normal Neck Exam: Positive: Supple, Negative: JVD, thyromegaly Chest Exam: Positive: Clear to auscultation, Normal air movement Heart Exam: Positive: Normal S1, Normal S2, Rate Normal, Regular Rhythm, Negative: Murmurs, Rubs Telemetry: Positive: No significant arrhythmia Abdomen Exam: Positive: Normal bowel sounds, Soft, Negative: Hepatospenomegaly, Tenderness Extremity Exam: Positive: Normal pulses, Negative: Clubbing, Cyanosis, Edema Assessment /Plan Problems Problems: (1) Sepsis with organ dysfunction Status: Resolved Problem Text: Has associated THERESE has a stag horn calculi and urine was positive or fungi last week. urine culture shows only fungi however pateint was on keflex at home so UC may be negative. pateint does have history of ESBL ecoli so will continue zosyn (2) THERESE (acute kidney injury) Status: Resolved (3) Staghorn renal calculus Status: Chronic Problem Text: will need referral to urology on discharge. (4) Obesity Status: Chronic (5) Diverticulosis Status: Chronic (6) COPD (chronic obstructive pulmonary disease) Status: Chronic (7) Diastolic CHF Status: Chronic (8) Hypertension Status: Chronic Problem Text: was hypotensive on admission could be ralated to BP meds and dehydaration and infection will continue to hold lisinopril . as per pateint bps running low since starting the med so will probably need to be dced on discharge. (9) Diabetes Status: Chronic (10) Chronic respiratory failure with hypoxia Status: Chronic (11) Ventral hernia Status: Chronic (12) JERMAIN (obstructive sleep apnea) Status: Chronic Problem Text: uses only oxygen at night , could not tolerate the CPAP. (13) Anxiety Status: Chronic Problem Text: will continue alprazolam at lower dosage. Plan/VTE VTE Prophylaxis Ordered?: Yes VS, I&O, 24H, Fishbone Vital Signs/I&O Vital Signs Date Time Temp Pulse Resp B/P Pulse Ox O2 Delivery O2 Flow Rate FiO2 11/30/16 09:00 Room Air 11/30/16 08:00 97.0 94 20 138/86 96 1.5 11/27/16 18:30 94 I&O- Last 24 Hours up to 6 AM 11/30/16 05:59 Intake Total 2010 ml Output Total 1650 ml Balance 360 ml Laboratory Data 24H LABS Laboratory Tests 2 11/30/16 07:14: Blood Urea Nitrogen 5#L, Creatinine 0.73, Sodium Level 144, Potassium Level 3.9 , Chloride Level 107, Carbon Dioxide Level 30, Calcium Level 8.8, Aspartate Amino Transf (AST/SGOT) 12L, Alanine Aminotransferase (ALT/SGPT) 20, Alkaline Phosphatase 67, Total Bilirubin 0.3, Total Protein 5.9L, Albumin 2.8L, Albumin/ Globulin Ratio 0.90L, Anion Gap 7L, Glomerular Filtration Rate > 60.0 CBC/BMP Laboratory Tests 11/30/16 07:14 Calcium Level 8.8, Aspartate Amino Transf (AST/SGOT) 12 L, Alanine Aminotransferase (ALT/SGPT) 20, Alkaline Phosphatase 67, Total Bilirubin 0.3, Total Protein 5.9 L, Albumin 2.8 L, Red Blood Count 3.31 L, Mean Corpuscular Volume 96.1 H, Mean Corpuscular Hemoglobin 30.4, Mean Corpuscular Hemoglobin Concent 31.7 L, Red Cell Distribution Width 14.0 Microbiology Microbiology 11/27/16 Blood Culture - Preliminary, Resulted No Growth after 72 hours. All specime... 11/27/16 Blood Culture - Preliminary, Resulted No Growth after 72 hours. All specime... 11/27/16 MRSA Screen - Final, Complete 11/27/16 Urine Culture - Final, Complete Yeast Like Organism RAQUEL FRASER DO Nov 30, 2016 15:32
[2016-11-30 16:00] VITALS: BP 149/90
[2016-11-30] MEDS: HumaLOG INSULIN (NovoLOG) PER UNIT SC SCH (17:32)
[2016-11-30 20:00] VITALS: BP 158/83
[2016-11-30] MEDS ORDERED: HumaLOG INSULIN (NovoLOG) PER UNIT SC SCH (21:00)
[2016-12-01] VITALS: BP 154/83
[2016-12-01] MEDS: PIPERACILLIN/TAZOBACTAM SOD 3.375 GM in D5W MINI-BAG PLUS 50 ML IV SCH ×2 (02:47→09:09)
[2016-12-01] MEDS: HEPARIN SOD (PORCINE) 5000 UNITS/ML VIAL SC SCH (06:42)
[2016-12-01 07:20] LABS: MEAN CORPUSCULAR HEMOGLOBIN 30.8 pg (27.0-33.0); MEAN CORPUSCULAR HGB CONC 32.2 g/dl (32.0-36.5); MEAN CORPUSCULAR VOLUME 95.7 fl (80.0-96.0); RED CELL DISTRIBUTION WIDTH 14.4 % (11.5-14.5); WHITE BLOOD COUNT 11.4 K/mm3 (4.0-10.0)
[2016-12-01] MEDS: BUDESONIDE 0.5 MG/2 ML INHALATION SUSPENSION INH SCH (07:23)
[2016-12-01] MEDS: IPRATROPIUM 0.5MG/ALBUTEROL 2.5MG INH SOL UD 3ML (DUONEB)(J7620) NEB SCH (07:23)
[2016-12-01 07:32] LABS: ALBUMIN 2.5 GM/DL (3.2-5.2); ALBUMIN/GLOBULIN RATIO 0.86 (1.00-1.93); ALKALINE PHOSPHATASE 79 U/L (45-117); ALT/SGPT 17 U/L (12-78); ANION GAP 12 MEQ/L (8-16); AST/SGOT 11 U/L (15-37); BILIRUBIN,TOTAL 0.2 MG/DL (0.2-1.0); BLOOD UREA NITROGEN 8 MG/DL (7-18); CALCIUM LEVEL 8.3 MG/DL (8.8-10.2); CARBON DIOXIDE LEVEL 29 MEQ/L (21-32); CHLORIDE LEVEL 103 MEQ/L (98-107); CREATININE FOR GFR 0.73 MG/DL (0.55-1.02); GLOMERULAR FILTRATION RATE > 60.0 (>45); GLUCOSE, FASTING 154 MG/DL (80-110); POTASSIUM SERUM 3.4 MEQ/L (3.5-5.1); SODIUM LEVEL 144 MEQ/L (136-145); TOTAL PROTEIN 5.4 GM/DL (6.4-8.2)
[2016-12-01 08:00] VITALS: BP 159/66
[2016-12-01] MEDS ORDERED: MACR100C3 PO (08:44)
[2016-12-01] MEDS ORDERED: POTASSIUM CHLORIDE 10 MEQ SR TABLET PO ONE (08:45)
[2016-12-01] MEDS: HumaLOG INSULIN (NovoLOG) PER UNIT SC SCH (09:09)
[2016-12-01] MEDS: PANTOPRAZOLE 40MG INJ (PROTONIX) (C9113) IV SCH (09:09)
[2016-12-01] MEDS: FLUCONAZOLE 100 MG TAB PO SCH (09:10)
[2016-12-01] MEDS: ALPRAZolam 0.5 MG TAB PO SCH (09:10)
[2016-12-01] MEDS: FUROSEMIDE 40 MG TAB PO SCH (09:10)
[2016-12-01] MEDS: SUCRALFATE 1 GM TAB PO SCH (09:10)
--- NOTE | 2016-12-01 09:12 | DSES ---
DATE OF ADMISSION: 11/27/2016 DATE OF DISCHARGE: REASON FOR ADMISSION: Suprapubic pain, generalized weakness. FINAL DIAGNOSES: 1. Sepsis with hypotension and organ dysfunction, resolved. 2. Acute kidney injury. 3. Staghorn renal calculus. 4. Obesity. 5. Diverticulosis. 6. Chronic obstructive pulmonary disease (COPD), on oxygen at home. 7. Diastolic congestive heart failure with a preserved ejection fraction (EF). 8. Hypertension. 9. Diabetes, non-insulin dependent. 10. Chronic respiratory failure with hypoxia. 11. Ventral hernia. 12. Obstructive sleep apnea, only on oxygen at night, does not tolerate CPAP. 13. History of anxiety. HISTORY OF PRESENT ILLNESS: The patient is a 61-year-old patient of Dr. Shalini Thomas who presented to the emergency room complaining of suprapubic pain. She was found to have a urinary tract infection (UTI) on prior admissions and was started on Keflex; however, she stated she was not tolerating it due to nausea and vomiting so she stopped taking it the Tuesday prior to admission. She stated she has been having decreased appetite, increased suprapubic pain, diaphoresis and chills, but no fevers or dysuria. The patient denied any cough or diarrhea in the emergency room. The patient was found to be profoundly hypotensive with a systolic blood pressure in the 40s, which improved with 2.5 liters of normal saline. The patient was admitted under the hospitalist service. HOSPITAL COURSE: Her lisinopril was held as well as her Ativan was decreased to half dose. The patient was started on antibiotics, Zosyn since she has history of extended spectrum beta-lactamase (ESBL) E-coli in the past, but the last urine culture was only positive for yeast. She was also started on Diflucan. She was kept in the intensive care unit (ICU) initially. Then she was moved to the floor once the patient's blood pressure had normalized and continued to be in the normal range. She was discharged home on Macrobid. The patient was instructed not to take her lisinopril. CT scan of her abdomen and pelvis was done which showed a 2.4 x 2.1 staghorn calculus in the left kidney with some hydronephrosis to the upper lobe. She had severe left colonic and sigmoid diverticulosis, but only mild diverticulitis if any. No other findings. She also underwent a lumbar MRI which showed degenerative disc disease at L2-3 and L5-S1 and some mild central canal stenosis at L3-L4 and L4-L5. The patient also had a chest x-ray in the emergency room which showed hyperinflation, some basilar fibrotic changes, with mild cardiomegaly, no cassidy edema, no dense consolidation or effusion. On discharge, her creatinine had normalized to 0.73. Leukocytosis was initially 19.3 and came down to 11.4 and she was discharged. DISCHARGE INSTRUCTIONS: The patient is to follow up with primary care provider in 2-5 days, Dr. Thomas. To follow up with urology at the next available appointment, preferably within the next week or so for the staghorn calculus. Diet diabetic . Activities as tolerated. Discharge medications include Macrobid 100 mg by mouth twice a day for two more days, Immaculata 7.5/325 1 tablet three times a day as needed pain, Ventolin 2 puffs inhaled every 4 hours as needed shortness of breath, albuterol sulfate every 4 hours inhaled as needed for shortness of breath,. alprazolam 1 mg by mouth three times a day, Ellipta 200 mg inhaled daily, Lasix 40 mg by mouth daily, hydroxyzine 25 mg pot three times a day as needed hives, metformin 1000 mg by mouth twice a day, metronidazole 500 mg by mouth twice a day, potassium 20 mg by mouth at bedtime, Respimat 2 puffs inhaled daily, and Carafate 1 gram by mouth three times a day. Her Keflex was held and her lisinopril was held due to hypotension. DISCHARGE CONDITION: Stable.
== END 2016-12-01 11:55 | disposition home or self-care (01) | DRG 720 ==
LOC: M ED 12:17 → M ICU 15:54 → M ED INP 15:55 → M ICU 18:14 → M PED 11-29 13:10
PROVIDERS: ADMIT Internal Medicine; ATTEND Internal Medicine
DX: A41.9 Sepsis, unspecified organism (principal); E66.9 Obesity, unspecified; G47.33 Obstructive sleep apnea (adult) (pediatric); N20.0 Calculus of kidney; N17.9 Acute kidney failure, unspecified; J44.9 Chronic obstructive pulmonary disease, unspecified; I11.0 Hypertensive heart disease with heart failure; E11.9 Type 2 diabetes mellitus without complications; J96.11 Chronic respiratory failure with hypoxia; F41.9 Anxiety disorder, unspecified; I50.30 Unspecified diastolic (congestive) heart failure; K57.30 Diverticulosis of large intestine without perforation or abscess without bleeding; K43.9 Ventral hernia without obstruction or gangrene; N13.30 Unspecified hydronephrosis; Z79.899 Other long term (current) drug therapy

== ENCOUNTER → 2017-02-24 | Outpatient (CLI) | payer OTHER ==
[~2017-02-24] MED LIST changes: +HYDR25T PO; +MACR100C3 PO; +METR500T10 PO; +STRI1AER2 INH; +ZOFR20TA PO
[2017-02-24 13:33] LABS: ALBUMIN 3.1 GM/DL (3.2-5.2); ALBUMIN/GLOBULIN RATIO 0.91 (1.00-1.93); ALKALINE PHOSPHATASE 115 U/L (45-117); ALT/SGPT 16 U/L (12-78); ANION GAP 10 MEQ/L (8-16); AST/SGOT 6 U/L (15-37); BILIRUBIN,TOTAL 0.2 MG/DL (0.2-1.0); BLOOD UREA NITROGEN 21 MG/DL (7-18); CALCIUM LEVEL 9.1 MG/DL (8.8-10.2); CARBON DIOXIDE LEVEL 35 MEQ/L (21-32); CHLORIDE LEVEL 96 MEQ/L (98-107); CREATININE FOR GFR 0.76 MG/DL (0.55-1.02); GLOMERULAR FILTRATION RATE > 60.0 (>45); GLUCOSE, FASTING 147 MG/DL (80-110); POTASSIUM SERUM 3.8 MEQ/L (3.5-5.1); SODIUM LEVEL 141 MEQ/L (136-145); TOTAL PROTEIN 6.5 GM/DL (6.4-8.2)
[2017-02-24 13:36] LABS: BASO # 0.1 K/mm3 (0.0-0.2); BASO % 0.4 % (0.0-1.0); EOS # 0.2 K/mm3 (0.0-0.50); EOS % 1.1 % (0.0-3.0); LARGE UNSTAINED CELL # 0.1 K/mm3 (0.0-0.4); LARGE UNSTAINED CELL % 0.9 % (0.0-4.0); LYMPH # 2.9 K/mm3 (1.5-4.5); LYMPH % 19.7 % (24.0-44.0); MEAN CORPUSCULAR HEMOGLOBIN 28.9 pg (27.0-33.0); MEAN CORPUSCULAR HGB CONC 31.3 g/dl (32.0-36.5); MEAN CORPUSCULAR VOLUME 92.6 fl (80.0-96.0); MONO # 1.1 K/mm3 (0.0-0.8); NEUTROPHILS # 10.6 K/mm3 (1.8-7.7); NEUTROPHILS % 70.9 % (36.0-66.0); PLATELET COUNT, AUTOMATED 496 k/mm3 (150-450); RED CELL DISTRIBUTION WIDTH 13.7 % (11.5-14.5); WHITE BLOOD COUNT 14.9 K/mm3 (4.0-10.0)
--- NOTE | 2017-02-25 02:50 | REP ---
Clinical: Constipation. Abdominal pain. Technique: Upright view of the chest with supine and upright views of the abdomen and pelvis. Findings: Frontal upright view of the chest demonstrates chronic interstitial changes. Trace basilar atelectasis cannot be excluded. No evidence for pneumoperitoneum or free air below the diaphragm. Supine and upright views of the abdomen and pelvis demonstrate nonspecific bowel gas pattern with suggestions for moderate fecal stasis. Calcifications in the left upper quadrant may reflect renal stones. No evidence for bowel obstruction or perforation. Skeletal structures demonstrate age-related changes. Impression: 1. Presumed fecal stasis and possible constipation without evidence for bowel obstruction or perforation. 2. Nephrolithiasis. Signed by Marky Puga MD 02/25/2017 02:41 A
== END ==
LOC: M WUC 09:19
PROVIDERS: ATTEND Physician Assistant
DX: R10.812 Left upper quadrant abdominal tenderness (principal); K59.00 Constipation, unspecified; N20.0 Calculus of kidney

== ENCOUNTER 2017-04-09 03:17 | Inpatient (IN) | payer OTHER ==
[~2017-04-09] VITALS: Ht 165.1 cm; Wt 87.0 kg
[2017-04-09] MEDS ORDERED: methylPREDNISolone INJ 125 MG/2 ML VIAL (J2930) IV ONE (04:00)
[2017-04-09 04:24] LABS: BASO # 0.1 K/mm3 (0.0-0.2); BASO % 0.5 % (0.0-1.0); EOS # 0.1 K/mm3 (0.0-0.50); EOS % 0.5 % (0.0-3.0); LARGE UNSTAINED CELL # 0.1 K/mm3 (0.0-0.4); LARGE UNSTAINED CELL % 0.6 % (0.0-4.0); LYMPH # 0.6 K/mm3 (1.5-4.5); LYMPH % 4.1 % (24.0-44.0); MEAN CORPUSCULAR HEMOGLOBIN 29.8 pg (27.0-33.0); MEAN CORPUSCULAR HGB CONC 32.5 g/dl (32.0-36.5); MEAN CORPUSCULAR VOLUME 91.9 fl (80.0-96.0); MONO # 0.7 K/mm3 (0.0-0.8); MONO % 5.6 % (0.0-5.0); NEUTROPHILS # 10.8 K/mm3 (1.8-7.7); NEUTROPHILS % 88.8 % (36.0-66.0); PLATELET COUNT, AUTOMATED 253 k/mm3 (150-450); RED CELL DISTRIBUTION WIDTH 15.1 % (11.5-14.5); WHITE BLOOD COUNT 12.1 K/mm3 (4.0-10.0)
[2017-04-09 04:42] LABS: ABG HCO3 39.3 MEQ/L (22.0-26.0); ABG PARTIAL PRESSURE O2 86.4 mmHg (75.0-100.0); ABG STANDARD HCO3 33.8 MEQ/L (22.0-26.0); ABG TOTAL CO2 41.5 MEQ/L (23.0-31.0)
[2017-04-09 04:44] LABS: ABG PARTIAL PRESSURE CO2 72.8 mmHg (35.0-45.0)
[2017-04-09] MEDS: IPRATROPIUM 0.5MG/ALBUTEROL 2.5MG INH SOL UD 3ML (DUONEB)(J7620) NEB SCH ×6 (04:51→22:06)
[2017-04-09 04:54] LABS: ANION GAP 5 MEQ/L (8-16); BLOOD UREA NITROGEN 20 MG/DL (7-18); CALCIUM LEVEL 9.1 MG/DL (8.8-10.2); CARBON DIOXIDE LEVEL 41 MEQ/L (21-32); CHLORIDE LEVEL 91 MEQ/L (98-107); CREATININE FOR GFR 0.73 MG/DL (0.55-1.02); GLOMERULAR FILTRATION RATE > 60.0 (>45); GLUCOSE, FASTING 279 MG/DL (80-110); POTASSIUM SERUM 4.5 MEQ/L (3.5-5.1); SODIUM LEVEL 137 MEQ/L (136-145)
[2017-04-09 06:10] VITALS: O2SAT 93
[2017-04-09] MEDS ORDERED: LevoFLOXacin IV 750 MG in APPROPRIATE DILUENT 1 EA IV ONE (06:15)
[2017-04-09 06:22] LABS: ABG BASE EXCESS 7.8 (-2.0-2.0); ABG HCO3 36.8 MEQ/L (22.0-26.0); ABG PARTIAL PRESSURE O2 74.4 mmHg (75.0-100.0); ABG STANDARD HCO3 31.5 MEQ/L (22.0-26.0); ABG pH (ARTERIAL) 7.334 UNITS (7.350-7.450)
[2017-04-09 06:25] LABS: ABG PARTIAL PRESSURE CO2 70.8 mmHg (35.0-45.0)
[2017-04-09] MEDS: HumaLOG INSULIN (NovoLOG) PER UNIT SC SCH ×4 (07:30→20:28)
[2017-04-09] MEDS ORDERED: MICR8CAP PO (07:38)
[2017-04-09] MEDS ORDERED: AZIT250T3 PO (07:38)
[2017-04-09] MEDS ORDERED: PRED10TA PO (07:40)
[2017-04-09] MEDS ORDERED: INCR1INH INH (07:40)
[2017-04-09] MEDS ORDERED: FURO40TA2 PO (07:43)
[2017-04-09] MEDS ORDERED: METF1000 PO (07:43)
[2017-04-09] MEDS ORDERED: PATIENT COMMENT (07:45)
--- NOTE | 2017-04-09 07:53 | ECGEPIP ---
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 RBBB MODERATE ST DEPRESSION SIMILAR TO 11/27/16 Electronically Signed On 04-09-2017 7:53:28 EDT by Adoplh River
[2017-04-09] MEDS: TIOTROPIUM INHALER/CAPSULE (SPIRIVA) INH SCH (08:00)
[2017-04-09] MEDS ORDERED: ACETAMINOPHEN TAB 650MG DOSE (2X325MG) PO ONE (08:15)
[2017-04-09] MEDS ORDERED: DEXTROSE 50% 50 ML SYRINGE IV PRN (08:45)
[2017-04-09] MEDS ORDERED: GLUCAGON FOR INJ 1 MG VIAL (J1610) SC PRN (08:45)
[2017-04-09] MEDS ORDERED: ONDANSETRON 4MG/2ML VIAL (J2405) IV PRN (08:45)
[2017-04-09] MEDS ORDERED: GLUCOSE 4 GM CHEW TABLET PO PRN (08:45)
[2017-04-09] MEDS ORDERED: FUROSEMIDE 20 MG TAB PO SCH (09:00)
[2017-04-09] MEDS: ADVAIR DISKUS 500/50 INH PWD INH SCH ×2 (09:00→20:15)
[2017-04-09] MEDS ORDERED: NS 1,000 ML IV SCH (10:00)
--- NOTE | 2017-04-09 10:01 | REP ---
AP PORTABLE CHEST: 04/09/2017 COMPARISON: 02/24/2017, 11/27/2016. CLINICAL HISTORY: Dyspnea, cough. FINDINGS: There is some cardiomegaly with left ventricular configuration of the heart. Hyperinflation with COPD and some underlying fibrosis noted. Infrahilar patchy atelectasis or infiltrate in the right base without dense consolidation or air bronchograms. No gross effusion. No cassidy edema. Mildly tortuous aorta without aneurysm. Airway intact bony thorax without focal lesion. IMPRESSION: 1. Some patchy infrahilar atelectasis or infiltrate on the right with underlying hyperinflation, COPD and some minor fibrotic change. 2. Cardiomegaly without effusion or cassidy edema. Signed by Cal Kirkpatrick MD 04/09/2017 07:50 P
[2017-04-09 10:54] VITALS: BP 138/85
[2017-04-09] MEDS: methylPREDNISolone INJ 125 MG/2 ML VIAL (J2930) IV SCH ×2 (11:05→20:26)
[2017-04-09] MEDS: ENOXAPARIN 40 MG/0.4 ML SYRINGE (J1650) SC SCH (11:05)
[2017-04-09] MEDS: NICOTINE 21MG/24HR 1 EA TRANSDERMAL TD SCH (11:06)
[2017-04-09] MEDS: cefTRIAXone SOD 2 GM in D5W MINI-BAG PLUS 50 ML IV SCH (11:06)
[2017-04-09] MEDS: ALPRAZolam 0.5 MG TAB PO SCH ×4 (11:07→20:27)
[2017-04-09] MEDS: guaiFENesin ER 600 MG TAB PO SCH ×2 (11:07→20:27)
[2017-04-09] MEDS: SENOKOT S TAB PO SCH ×2 (11:07→20:27)
[2017-04-09 12:53] LABS: ABG BASE EXCESS 5.6 (-2.0-2.0); ABG HCO3 34.1 MEQ/L (22.0-26.0); ABG PARTIAL PRESSURE O2 86.4 mmHg (75.0-100.0); ABG STANDARD HCO3 29.5 MEQ/L (22.0-26.0); ABG TOTAL CO2 36.1 MEQ/L (23.0-31.0); ABG pH (ARTERIAL) 7.326 UNITS (7.350-7.450)
[2017-04-09 12:54] LABS: ABG PARTIAL PRESSURE CO2 66.7 mmHg (35.0-45.0)
--- NOTE | 2017-04-09 13:20 | HPE ---
DATE OF ADMISSION: 04/09/2017 PRIMARY CARE PROVIDER: Dr. Thomas CHIEF COMPLAINT: Shortness of breath and cough. HISTORY OF PRESENT ILLNESS: This is a 61-year-old female patient with underlying medical history of chronic obstructive pulmonary disease (COPD) on 1-2 liters of oxygen at night, diastolic heart failure with preserved ejection fraction, type 2 diabetes, obesity, diverticulosis, and anxiety. The patient presented with one month of progressive worsening shortness of breath and cough productive of yellow phlegm. Denies any fevers or chills. The patient recently has lost her son and has restarted smoking after quitting for a year. Also, with positive sick contact at work. She was given prednisone and azithromycin as outpatient without improvement. Subsequently presented to the emergency room with dyspnea. The patient denies any chest pain, pressure or discomfort. Denies any fevers or chills. Denies any recent travel. Does report sick contact. Subsequently the patient was admitted. ALLERGIES: No known drug allergies. PAST MEDICAL HISTORY: 1. COPD. 2. Diabetes, on metformin. 3. Diastolic heart failure with preserved ejection fraction (EF). 4. Diverticulosis. 5. Anxiety. 6. Smoking. PAST SURGICAL HISTORY: 1. Cyst removed from the leg. 2. Cervical cancer, status post hysterectomy. SOCIAL HISTORY: The patient quit smoking a year ago and then started smoking recently. Smokes about 1 to 1-1/2 packs per day for 43 years. Denies alcohol use or illicit drug use. FAMILY HISTORY: Denies family history of lung cancer. REVIEW OF SYSTEMS: Reported wheeze, shortness of breath, coughing productive of white phlegm. Denies any fevers or chills. Reported shortness of breath. Denies any chest pain. All other review of systems negative. HOME MEDICATIONS: Patient reported taking metformin, which was not documented. The patient is also on hydrocodone/acetaminophen 7.5/325 three times a day as needed, Ventolin inhaler every 4 hours as needed, albuterol nebulizer every 4 hours as needed, Xanax 1 mg by mouth four times a day, azithromycin 250 mg by mouth daily, Lasix 40 mg by mouth daily, Ellipta 62.5 mcg inhalation daily, potassium chloride 80 mEq by mouth daily, prednisone 10 mg by mouth daily. PHYSICAL EXAMINATION: VITAL SIGNS: Temperature 97.3, pulse 118, respirations 20, blood pressure 138/85, pulse oximetry 95% on 2 liters nasal cannula. GENERAL: Patient alert and oriented times three, obese, in no acute distress. HEENT: Normocephalic, atraumatic. PULMONARY: Bilateral expiratory wheeze with left basilar rhonchi. CARDIAC: Tachycardia, irregular. No murmurs detected. ABDOMEN: Obese. Soft. Nontender. Positive bowel sounds. EXTREMITIES: Trace edema bilateral lower extremities. EKG: Shows sinus tachycardia with nonspecific ST segment changes. LABORATORIES: WBC 12.1, hemoglobin and hematocrit 16.1 over 49.5, platelets 253. Chemistry with sodium 137, potassium 4.5, chloride 91, bicarbonate 41, BUN 20, creatinine 0.7, lactic acid 3.2 and 5.3. Cardiac enzymes negative times one. BNP 34.8. CHEST X-RAY: Shows patchy infiltrates right side of the lung. ASSESSMENT AND PLAN: This is a 61-year-old female patient with underlying medical history of COPD on oxygen at night 1-2 liters, diastolic congestive heart failure with preserved ejection fraction, diabetes type 2, diverticulosis, and anxiety admitted with acute chronic obstructive pulmonary disease exacerbation. PROBLEMS: 1. Sepsis secondary to pneumonia. Patient with tachycardia and leukocytosis with lactic acidosis. Repeat lactic acid. IV fluids. Rocephin and azithromycin. Followup cultures. Respiratory panel. Continue treatment for COPD as below. 2. Acute COPD exacerbation. The patient chronically hypercarbic, needs oxygen at night. Continue azithromycin and Rocephin. Followup cultures. Solu-Medol. DuoNebs. Advair. Spiriva. Will order Acapella. Nebulizer treatments. Repeat lactic acid. Taper steroids as tolerated. Followup sputum cultures and respiratory panel. Mucinex. 3. Hyperglycemia with type 2 diabetes. Hyperglycemia secondary to steroids. Insulin as per protocol. Holding oral medication. Follow fingersticks. 4. Diastolic congestive heart failure. Patient with lactic acidosis. IV fluids for gentle hydration. Patient currently euvolemic, holding Lasix for now. Strict ins and outs and daily weight. 5. Diverticulosis. Continue to monitor. 6. Anxiety. Given patient has mild hypercarbia, patient's opioids and also benzodiazepine doses has been reduced in half. Will continue to monitor. Resume benzodiazepine dose once ABG looks better. 7. Obesity complicating care. 8. Smoking. Counseling provided. Nicotine patch ordered. 9. Deep vein thrombosis (DVT) prophylaxis. Lovenox subcutaneous. 10. Disposition planning. Pending clinical improvement.
[2017-04-09 16:00] VITALS: BP 140/66
[2017-04-09] MEDS: ACETAMINOPHEN TAB 650MG DOSE (2X325MG) PO PRN (18:28)
[2017-04-09 20:00] VITALS: BP 140/80
[2017-04-09 23:59] VITALS: BP 112/58
[2017-04-10] VITALS (7 sets, daily range): BP systolic 130–161; BP diastolic 52–85
[2017-04-10] MEDS: IPRATROPIUM 0.5MG/ALBUTEROL 2.5MG INH SOL UD 3ML (DUONEB)(J7620) NEB SCH ×4 (02:27→19:54)
[2017-04-10] MEDS: methylPREDNISolone INJ 125 MG/2 ML VIAL (J2930) IV SCH (03:24)
[2017-04-10] MEDS: AZITHROMYCIN INJ 500 MG, VIAL MATE ADAPTER 1 EACH in D5W 250 ML IV SCH (05:05)
[2017-04-10] MEDS: ACETAMINOPHEN TAB 650MG DOSE (2X325MG) PO PRN ×3 (05:21→23:54)
[2017-04-10 05:57] LABS: MEAN CORPUSCULAR HGB CONC 31.8 g/dl (32.0-36.5); MEAN CORPUSCULAR VOLUME 94.3 fl (80.0-96.0); RED CELL DISTRIBUTION WIDTH 14.7 % (11.5-14.5); WHITE BLOOD COUNT 13.4 K/mm3 (4.0-10.0)
[2017-04-10 06:04] LABS: ANION GAP 7 MEQ/L (8-16); BLOOD UREA NITROGEN 23 MG/DL (7-18); CALCIUM LEVEL 9.1 MG/DL (8.8-10.2); CARBON DIOXIDE LEVEL 36 MEQ/L (21-32); CHLORIDE LEVEL 96 MEQ/L (98-107); CREATININE FOR GFR 0.79 MG/DL (0.55-1.02); GLOMERULAR FILTRATION RATE > 60.0 (>45); GLUCOSE, FASTING 336 MG/DL (80-110); MAGNESIUM LEVEL 2.3 MG/DL (1.8-2.4); POTASSIUM SERUM 3.7 MEQ/L (3.5-5.1); SODIUM LEVEL 139 MEQ/L (136-145)
[2017-04-10] MEDS: TIOTROPIUM INHALER/CAPSULE (SPIRIVA) INH SCH (07:43)
[2017-04-10] MEDS: ADVAIR DISKUS 500/50 INH PWD INH SCH ×2 (07:43→19:54)
[2017-04-10] MEDS: ENOXAPARIN 40 MG/0.4 ML SYRINGE (J1650) SC SCH (07:46)
[2017-04-10] MEDS: ALPRAZolam 0.5 MG TAB PO SCH ×4 (07:47→20:35)
[2017-04-10] MEDS: SENOKOT S TAB PO SCH ×2 (07:47→20:35)
[2017-04-10] MEDS: guaiFENesin ER 600 MG TAB PO SCH ×2 (07:47→20:35)
[2017-04-10] MEDS: NICOTINE 21MG/24HR 1 EA TRANSDERMAL TD SCH (07:47)
[2017-04-10] MEDS: HumaLOG INSULIN (NovoLOG) PER UNIT SC SCH ×4 (07:48→20:36)
[2017-04-10 09:28] LABS: ABG BASE EXCESS 5.4 (-2.0-2.0); ABG HCO3 33.6 MEQ/L (22.0-26.0); ABG PARTIAL PRESSURE O2 77.5 mmHg (75.0-100.0); ABG STANDARD HCO3 29.3 MEQ/L (22.0-26.0); ABG TOTAL CO2 35.6 MEQ/L (23.0-31.0)
[2017-04-10 09:30] LABS: ABG PARTIAL PRESSURE CO2 65.2 mmHg (35.0-45.0)
[2017-04-10] MEDS: IPRATROPIUM 0.5MG/ALBUTEROL 2.5MG INH SOL UD 3ML (DUONEB)(J7620) NEB PRN (09:50)
[2017-04-10] MEDS: cefTRIAXone SOD 2 GM in D5W MINI-BAG PLUS 50 ML IV SCH (11:50)
[2017-04-10] MEDS: POTASSIUM CHLORIDE 10 MEQ SR TABLET PO SCH (12:09)
[2017-04-10] MEDS: ANEXSIA, NORCO 7.5MG/325MG TABLET(HYDROCODONE/APAP) PO PRN (12:09)
[2017-04-10] MEDS: FUROSEMIDE 40 MG TAB PO SCH (12:10)
--- NOTE | 2017-04-10 14:45 | IPN ---
DATE: 04/10/2017 SUBJECTIVE: Patient reported respiration was much improved. Reported that the patient's narcotic was held for chronic back pain. Was complaining about back pain and not able to sleep at night, as well as patient's anxiety, given the patient's benzodiazepine has also been decreased due to hypercarbia. The patient currently feeling much improved respiration with mild coughing productive of white phlegm. Otherwise, denies any fever, chills, chest pain, pressure or discomfort. VITAL SIGNS: Temperature 97, pulse 106, respirations 18, blood pressure 148/82, pulse oximetry 99% on room air. LABORATORY DATA: WBC 13.4, hemoglobin and hematocrit 14.6, over 46, platelets 255. Chemistry: Sodium 139, potassium 3.7, chloride 96, bicarbonate 26, BUN 23, creatinine 0.79. Lactic acid is negative, now 2. C-reactive protein 1.29. MICROBIOLOGY: Respiratory panel negative. Blood culture negative today. PHYSICAL EXAMINATION: GENERAL: Patient obese, alert and oriented times three, in no acute distress. HEENT: Normocephalic, atraumatic. PULMONARY: Mild bilateral expiratory wheeze, left basilar rhonchi. CARDIAC: Tachycardia, regular. No murmurs detected. ABDOMEN: Soft. Nontender. Positive bowel sounds. Obese. EXTREMITIES: One plus edema bilateral lower extremities, predominantly ankle and foot now to the calf. ASSESSMENT AND PLAN: This is a 61-year-old female patient with underlying medical history of chronic obstructive pulmonary disease (COPD) on 1-2 liters oxygen at night, smoking, diastolic congestive heart failure with preserved ejection fraction, diabetes type 2, diverticulosis and anxiety, admitted with acute COPD exacerbation. PROBLEMS: 1. Sepsis secondary to pneumonia. Patient with tachycardia with leukocytosis and lactic acidosis. Repeat lactic acid. Intravenous (IV) fluids initially given. Rocephin and Zithromax. Respiratory panel. Steroids. Treatment for COPD as below. 2. Acute COPD exacerbation. The patient chronically hypercarbic. Needs oxygen at night. Continue azithromycin and Rocephin. Followup cultures. Solu-Medrol taper as tolerated. Advair, Spiriva. Acapella nebulizer treatment. Followup Lactic acid. Taper steroids. Sputum cultures. Nasonex. 3. Hyperglycemia with diabetes type 2, likely secondary to steroids. Insulin as per protocol. Holding oral medication. Adjust as needed. 4. Diastolic heart failure. Lasix initially on hold given lactic acidosis. Given lactic acidosis has resolved, will restart Lasix. Strict intake and output and daily weight. 5. Diverticulosis. Continue to monitor. 6. Anxiety, depression. Given the patient's acidosis has resolved, will restart the patient's opioids and benzodiazepine. Will need to followup with psychiatry as outpatient. The patient's benzodiazepine has been restarted. 7. Obesity complicating care. 8. Smoking. Counseling provided. Nicotine patch. 9. Deep venous thrombosis (DVT) prophylaxis. Lovenox subcutaneous. 10. Disposition planning pending clinical improvement. 11. Chronic back pain. The patient's home opiate has been restarted, given the patient's arterial blood gas (ABG) shows compensated hypercardia with respirations back to baseline. DISPOSITION: Pending clinical improvement. Likely discharge over the next two days.
[2017-04-10] MEDS: methylPREDNISolone INJ 40 MG/1 ML VIAL (J2920) IV SCH (14:54)
[2017-04-11] MEDS: IPRATROPIUM 0.5MG/ALBUTEROL 2.5MG INH SOL UD 3ML (DUONEB)(J7620) NEB SCH ×2 (01:11→06:11)
[2017-04-11] MEDS: ANEXSIA, NORCO 7.5MG/325MG TABLET(HYDROCODONE/APAP) PO PRN (03:03)
[2017-04-11] MEDS: methylPREDNISolone INJ 40 MG/1 ML VIAL (J2920) IV SCH (03:03)
[2017-04-11 03:05] VITALS: BP 142/77
[2017-04-11 05:13] LABS: MEAN CORPUSCULAR HEMOGLOBIN 29.6 pg (27.0-33.0); MEAN CORPUSCULAR HGB CONC 31.1 g/dl (32.0-36.5); MEAN CORPUSCULAR VOLUME 95.2 fl (80.0-96.0); WHITE BLOOD COUNT 11.1 K/mm3 (4.0-10.0)
[2017-04-11] MEDS: AZITHROMYCIN INJ 500 MG, VIAL MATE ADAPTER 1 EACH in D5W 250 ML IV SCH (05:22)
[2017-04-11 05:25] LABS: ANION GAP 4 MEQ/L (8-16); BLOOD UREA NITROGEN 24 MG/DL (7-18); CALCIUM LEVEL 9.3 MG/DL (8.8-10.2); CARBON DIOXIDE LEVEL 39 MEQ/L (21-32); CHLORIDE LEVEL 97 MEQ/L (98-107); CREATININE FOR GFR 0.63 MG/DL (0.55-1.02); GLOMERULAR FILTRATION RATE > 60.0 (>45); GLUCOSE, FASTING 247 MG/DL (80-110); MAGNESIUM LEVEL 2.3 MG/DL (1.8-2.4); POTASSIUM SERUM 3.9 MEQ/L (3.5-5.1); SODIUM LEVEL 140 MEQ/L (136-145)
[2017-04-11] MEDS: TIOTROPIUM INHALER/CAPSULE (SPIRIVA) INH SCH (06:11)
[2017-04-11] MEDS: ADVAIR DISKUS 500/50 INH PWD INH SCH (06:11)
[2017-04-11] MEDS: HumaLOG INSULIN (NovoLOG) PER UNIT SC SCH ×2 (06:56→12:39)
[2017-04-11 07:35] VITALS: BP 140/76
[2017-04-11] MEDS ORDERED: predniSONE 20 MG TAB PO SCH (09:00)
[2017-04-11] MEDS ORDERED: SODIUM CHLORIDE NASAL 0.65% SPRAY BTL (OCEAN) SCH (09:00)
[2017-04-11] MEDS ORDERED: FLUTICASONE PROP 0.05% NASAL SPRAY 16 GM (FLONASE) SCH (09:00)
[2017-04-11] MEDS: POTASSIUM CHLORIDE 10 MEQ SR TABLET PO SCH (09:07)
[2017-04-11] MEDS: SENOKOT S TAB PO SCH (09:08)
[2017-04-11] MEDS: ALPRAZolam 0.5 MG TAB PO SCH ×2 (09:09→13:19)
[2017-04-11] MEDS: guaiFENesin ER 600 MG TAB PO SCH (09:09)
[2017-04-11] MEDS: FUROSEMIDE 40 MG TAB PO SCH (09:10)
[2017-04-11] MEDS: ENOXAPARIN 40 MG/0.4 ML SYRINGE (J1650) SC SCH (09:13)
[2017-04-11] MEDS: NICOTINE 21MG/24HR 1 EA TRANSDERMAL TD SCH (09:16)
[2017-04-11] MEDS ORDERED: OCEA0.654 (10:57)
[2017-04-11] MEDS ORDERED: PRED10TA PO (10:57)
[2017-04-11] MEDS ORDERED: CEFD1CAP8 PO (10:57)
[2017-04-11] MEDS ORDERED: TIOT18INH INH (10:57)
[2017-04-11] MEDS ORDERED: GUAI60TA PO (10:57)
[2017-04-11] MEDS ORDERED: NICO21PAT TD (10:57)
[2017-04-11] MEDS ORDERED: FLUTISP (10:57)
[2017-04-11] MEDS: IPRATROPIUM 0.5MG/ALBUTEROL 2.5MG INH SOL UD 3ML (DUONEB)(J7620) NEB PRN (11:18)
[2017-04-11] MEDS: cefTRIAXone SOD 2 GM in D5W MINI-BAG PLUS 50 ML IV SCH (11:20)
[2017-04-11 12:00] VITALS: BP 133/71
--- NOTE | 2017-04-12 01:10 | DSES ---
DATE OF ADMISSION: 04/09/2017 DATE OF DISCHARGE: 04/11/2017 PRIMARY CARE PROVIDER: Dr. Martínez FINAL DIAGNOSIS: 1. Acute sepsis secondary to pneumonia. 2. Acute chronic obstructive pulmonary disease (COPD) exacerbation. 3. Hypoglycemia secondary to steroid. 4. Type 2 diabetes. 5. Diastolic congestive heart failure. 6. Anxiety depression. 7. Obesity. 8. Smoking. 9. Chronic back pain. HISTORY OF PRESENT ILLNESS: This is a 61-year-old female patient with underlying medical history of chronic obstructive pulmonary disease (COPD) on 1 to 2 liters of oxygen at night, diastolic heart failure with preserved ejection fraction, type 2 diabetes, obesity, diverticulosis, anxiety, the patient presented with one month of progressive worsening shortness of breath and cough productive of yellow phlegm. Denies any fever or chills. The patient recently lost her son last year and has restarted smoking after quitting for a year and also with positive sick contact at work. The patient was given prednisone and azithromycin as an outpatient without much improvement. Subsequently, presented to the emergency room with dyspnea, given multiple treatments, with some minimal improvement. Denies any chest pain, pressure or discomfort. Denies any fevers or chills. Denies any recent travel. Does report sick contact. Subsequently admitted for acute chronic obstructive pulmonary disease (COPD) exacerbation possibly secondary to pneumonia. Also found to have lactic acidosis. HOSPITAL COURSE: The patient was found to have lactic acidosis, IV fluid was given with resolution. Antibiotic was given. Cultures were sent. The patient was given steroids, nebulizer treatments, inhalers with improvement of the patient's symptoms. Oxygen supplement was provided and the patient was weaned off of oxygen and the patient's home medications were continued. Arterial blood gas (ABG) was appreciated. The patient is currently comfortable in no acute distress. Ready for discharge for further care as an outpatient, tolerating oral. VITAL SIGNS: Temperature 96.8, pulse ranging from 99 to 108, respirations 20, blood pressure 133/71, pulse oximetry 95% on 2 liters nasal cannula GENERAL: The patient alert, oriented times three, obese. HEENT: Normocephalic, atraumatic. PULMONARY: Mild expiratory wheeze. CARDIAC: Regular rate and rhythm. Murmurs systolic 2/6. ABDOMEN: Obese, soft, nontender. Positive bowel sounds. EXTREMITIES: 1+ bilateral lower extremity edema. LABORATORY: White blood count (WBC) 11.1, hemoglobin and hematocrit 14/45, platelets 218. Chemistry: Sodium 140, potassium 2.9, chloride 97, bicarbonate 39, BUN 25, creatine 0.6. Lactic acid last one 2. Cultures are negative to date. Respiratory panel negative. DISCHARGE MEDICATIONS: - cefdinir 200 mg by mouth twice a day for five more days - Flonase twice a day - Mucinex 600 mg by mouth twice a day - nicotine patch 25 mg subcutaneous daily - prednisone 10 mg tablets, six tablets by mouth daily for two days, four tablets by mouth daily for two days, three tablets by mouth daily for two days, two tablets by mouth daily for two days and one tablet by mouth daily for two days and then stop. - saline nasal spray three times a day - hydrocodone acetaminophen home medication 7.5/325 mg three times a day as needed, will continue Ventolin inhaler every 4 hours as needed and continued albuterol nebulizer every 4 hours as needed and continue Xanax 1 mg by mouth four times a day, continue Lasix 40 mg by mouth daily, will continue as well as azithromycin 250 mg by mouth daily, Ellipta inhalation daily will continue, potassium chloride 8 mEq by mouth daily. DISCHARGE INSTRUCTIONS: The patient instructed to followup with primary care provider in 7 days, daily weight. Return to the hospital if symptoms worsen. Followup with psychiatrist given depression and her son passing away a year ago. Return to the hospital if symptoms worsen.
[2017-04-12] MEDS ORDERED: D-CA1KIT XX (17:56)
[2017-04-14] MEDS ORDERED: GUAI60TA PO (02:54)
[2017-04-14] MEDS ORDERED: NICO1DIS2 TD (02:54)
[2017-04-14] MEDS ORDERED: METF500T PO (02:54)
== END 2017-04-11 13:58 | disposition home or self-care (01) | DRG 720 ==
LOC: M ED 05:08 → M ED INP 08:41 → M PCU 10:40
PROVIDERS: ADMIT Hospitalist; ATTEND Hospitalist
DX: A41.9 Sepsis, unspecified organism (principal); J18.9 Pneumonia, unspecified organism; I50.32 Chronic diastolic (congestive) heart failure; Z99.81 Dependence on supplemental oxygen; J44.1 Chronic obstructive pulmonary disease with (acute) exacerbation; J44.0 Chronic obstructive pulmonary disease with (acute) lower respiratory infection; E16.0 Drug-induced hypoglycemia without coma; E11.9 Type 2 diabetes mellitus without complications; E66.9 Obesity, unspecified; F17.210 Nicotine dependence, cigarettes, uncomplicated; M54.9 Dorsalgia, unspecified; F41.9 Anxiety disorder, unspecified; F32.9 Major depressive disorder, single episode, unspecified; Z79.84 Long term (current) use of oral hypoglycemic drugs; Z68.31 Body mass index [BMI] 31.0-31.9, adult; Z90.710 Acquired absence of both cervix and uterus; Z85.41 Personal history of malignant neoplasm of cervix uteri; Z79.899 Other long term (current) drug therapy

== ENCOUNTER 2017-04-14 00:08 | Inpatient (IN) | payer OTHER ==
[~2017-04-14] VITALS: Ht 162.6 cm; Wt 79.0 kg
[~2017-04-14 00:08] MED LIST changes: +ALCOPAD11 XX; +AZIT-12 PO; -AZIT250T3 PO; +CEFD1CAP8 PO; +D-CA1KIT XX; +FLUTISP; +HYDR-3363 PO; -HYDR25T PO; +LEVA1TAB2 PO; -LEVA500T PO; -MACR100C3 PO; +MACR100C43 PO; +METF10004 PO; +METF500T13 PO; +METR1TAB66 PO; -METR500T10 PO; +MICR8CAP PO; +MUCI600T31 PO; +OCEA0.654; +PATIENT COMMENT; +[UNRECOGNIZED DRUG - CODE] PO; -[UNRECOGNIZED DRUG - CODE] PO; -[UNRECOGNIZED DRUG - CODE] XX
[2017-04-14] MEDS ORDERED: dexameTHASONE 20 MG/5 ML VIAL (J1100) IV ONE (00:30)
[2017-04-14 00:45] LABS: VENOUS BASE EXCESS 18.3 (-2.0-2.0); VENOUS O2 SATURATION 96.4 % (60.0-80.0); VENOUS STANDARD HCO3 42.7 MEQ/L; VENOUS TOTAL CO2 51.4 MEQ/L (24.0-28.0)
[2017-04-14] MEDS: IPRATROPIUM 0.5MG/ALBUTEROL 2.5MG INH SOL UD 3ML (DUONEB)(J7620) NEB SCH ×7 (00:47→20:26)
[2017-04-14 00:59] LABS: BASO # 0.2 K/mm3 (0.0-0.2); BASO % 1.4 % (0.0-1.0); EOS % 0.3 % (0.0-3.0); LARGE UNSTAINED CELL # 0.3 K/mm3 (0.0-0.4); LARGE UNSTAINED CELL % 2.1 % (0.0-4.0); LYMPH % 13.1 % (24.0-44.0); MEAN CORPUSCULAR HEMOGLOBIN 29.7 pg (27.0-33.0); MEAN CORPUSCULAR HGB CONC 31.7 g/dl (32.0-36.5); MEAN CORPUSCULAR VOLUME 93.8 fl (80.0-96.0); MONO % 6.5 % (0.0-5.0); NEUTROPHILS # 11.7 K/mm3 (1.8-7.7); NEUTROPHILS % 76.6 % (36.0-66.0); PLATELET COUNT, AUTOMATED 243 k/mm3 (150-450); RED CELL DISTRIBUTION WIDTH 14.5 % (11.5-14.5); WHITE BLOOD COUNT 15.3 K/mm3 (4.0-10.0)
[2017-04-14 01:09] LABS: BLOOD UREA NITROGEN 25 MG/DL (7-18); CALCIUM LEVEL 9.4 MG/DL (8.8-10.2); CHLORIDE LEVEL 86 MEQ/L (98-107); CREATININE FOR GFR 0.67 MG/DL (0.55-1.02); GLOMERULAR FILTRATION RATE > 60.0 (>45); GLUCOSE, FASTING 331 MG/DL (80-110); POTASSIUM SERUM 3.6 MEQ/L (3.5-5.1); SODIUM LEVEL 138 MEQ/L (136-145)
[2017-04-14 01:27] LABS: ANION GAP 5 MEQ/L (8-16)
[2017-04-14 01:28] LABS: CARBON DIOXIDE LEVEL 47 MEQ/L (21-32)
[2017-04-14] MEDS ORDERED: GLUCOSE 4 GM CHEW TABLET PO PRN ×2 (02:45→04:30)
[2017-04-14] MEDS ORDERED: IPRATROPIUM 0.5MG/ALBUTEROL 2.5MG INH SOL UD 3ML (DUONEB)(J7620) NEB ONE (02:45)
[2017-04-14] MEDS ORDERED: DEXTROSE 50% 50 ML SYRINGE IV PRN ×2 (02:45→04:30)
[2017-04-14] MEDS ORDERED: GLUCAGON FOR INJ 1 MG VIAL (J1610) SC PRN ×2 (02:45→04:30)
[2017-04-14] MEDS ORDERED: OCEA0.654 (02:54)
[2017-04-14] MEDS ORDERED: PRED10PA2 PO (02:54)
[2017-04-14] MEDS ORDERED: MUCI600T31 PO (02:54)
[2017-04-14] MEDS ORDERED: METF500T13 PO (02:54)
[2017-04-14] MEDS ORDERED: NICO21DI31 TD (02:54)
[2017-04-14] MEDS ORDERED: methylPREDNISolone INJ 125 MG/2 ML VIAL (J2930) IV ONE (03:00)
[2017-04-14] MEDS ORDERED: FLUTISP (03:02)
[2017-04-14] MEDS ORDERED: POTA1TAB21 PO (03:02)
[2017-04-14] MEDS ORDERED: CEFD1CAP8 PO (03:02)
--- NOTE | 2017-04-14 03:02 | HPEPDOC ---
General Date of Admission Apr 14, 2017 at 02:34 Chief Complaint The patient is a 61-year-old female admitted with a reason for visit of Copd Exacerbation. Source: Patient Exam Limitations: No limitations Timing/Duration: 24 hours Severity: Severe History of Present Illness Ms. Weiss is a 61 y/o female with past medical hx of COPD, diastolic CHF, DM2, anxiety, obesity who presents today with onset of SOB since the night prior at 10 pm. The pt was just d/c from our facility 04/12/17 for acute COPD ex. and sepsis secondary to pneumonia. The pt states she went home and "smoked a couple cigarettes", she then niki to bed around 10 pm and began feeling SOB, especially with laying flat, she also noted a non-productive cough. She denied chills, fever, n/v or change in bowel or urinary habit nor blood in urine or stool. Unfortunately she has been admitted in the past (prior to her last admission two days ago) for multiple COPD ex. as well. Denied h/a or blurred vision, did admit her feet "feel and look swollen", but this is unchanged from when she was d/c as per pt. She is usually on 2 L O2 at home. Home Medications Scheduled (Incruse Ellipta) 62.5 Mcg/Inh Inh, 62.5 MCG INH DAILY, (Reported) Alprazolam (Alprazolam) 1 Mg Tab, 1 MG PO QID, (Reported) Cefdinir (Cefdinir) 300 Mg Cap, 300 MG PO BID, (Reported) Furosemide (Furosemide) 40 Mg Tab, 40 MG PO QPM, (Reported) Guaifenesin (Mucinex) 600 Mg Tab, 600 MG PO BID, (Reported) Metformin Hydrochloride (Metformin HCl) 500 Mg Tab, 1,000 MG PO BID, (Reported) Nicotine (Nicotine Transdermal Syst) 21 Mg/24 Hr Dis, 21 MG TD DAILY, (Reported) Potassium Chloride (Potassium Chloride ER) 8 Meq Tab, 8 MEQ PO DAILY, (Reported) Prednisone (Prednisone) 10 Mg Dylan, 10 MG PO ASDIRECTED, (Reported) Tapered dosing Scheduled PRN Acetaminophen/Hydrocodone (Hydrocodone/Acetaminophen 7.5-325 mg) 1 Tab Tab, 1 TAB PO TID PRN for PAIN, (Reported) Albuterol Sulfate (Ventolin Hfa) 200 Puff/8 Gm Aers, 2 PUFF INH Q4H PRN for SHORTNESS OF BREATH, (Reported) Albuterol Sulfate (Albuterol Sulfate) 2.5 Mg/0.5 Ml Neb, 2.5 MG INH Q4H PRN for SHORTNESS OF BREATH, (Reported) Fluticasone Propionate (Fluticasone Propionate) 50 Mcg/Act Spr, 1 SPRAY NA BID PRN for NASAL CONGESTION, (Reported) Sodium Chloride ([place] Nasal [place]) 0.65 % Spr, 2 SPRAY NA TID PRN for NASAL CONGESTION, (Reported) EACH NOSTRIL Allergies Coded Allergies: No Known Allergies (Unverified , 01/20/14) Past Medical History Medical History COPD diastolic CHF anxiety depression obesity Family History Significant Family History: No pertinent family hx Social History * Smoker: current smoker (1-2 cigarettes a day) Alcohol: Denies Drugs: denies Psychosocial History: Anxiety, Depression Review of Symptoms Constitutional: Reports: Malaise, Denies: Chills, Fever, Night Sweats, Weakness Eyes: Denies: Pain, Vision change ENT: Denies: Head Aches Skin: Denies: Rash, Lesions Pulmonary: Reports: Dyspnea, Cough, Denies: Pleuritic Chest Pain Cardiovascular: Reports: Orthopnea, Paroxysmal Noc. Dyspnea, Edema (b/l LE), Denies: Chest Pain, Palpitations Gastrointestinal: Denies: Nausea, Vomiting, Abdominal Pain, Diarrhea, Constipation, Melena, Hematochezia Genitourinary: Denies: Dysuria, Frequency, Incontinence Neurological: Reports: Weakness, Denies: Numbness Psych: Reports: Mood Normal Physical Examination General Exam: Positive: Alert, Cooperative, Moderate Distress Eye Exam: Positive: Conjunctiva & lids normal, EOMI, Negative: Sclera icteric ENT Exam: Positive: Atraumatic, Mucous membr. moist/pink Neck Exam: Positive: Supple Chest Exam: Positive: Rhonchi, Wheezing (end expiratory wheeze RUL), Diminished (throughout), Negative: Clear to auscultation, Normal air movement Heart Exam: Positive: Rate Normal, Normal S1, Normal S2, Negative: Gallops, Murmurs Abdomen Exam: Positive: Normal bowel sounds, Soft, Negative: Tenderness, Hepatospenomegaly Extremity Exam: Positive: Edema (+1 b/l LE), Negative: Clubbing, Cyanosis Vital Signs Vital Signs Date Time Temp Pulse Resp B/P (MAP) Pulse Ox O2 Delivery O2 Flow Rate FiO2 04/14/17 02:38 97.9 119 26 93 Nasal Cannula 2.0 04/14/17 02:37 166/80 (108) Laboratory Data Labs 24H Laboratory Tests 2 04/14/17 00:33: White Blood Count 15.3H, Red Blood Count 5.38, Hemoglobin 16.0, Hematocrit 50.4H , Mean Corpuscular Volume 93.8, Mean Corpuscular Hemoglobin 29.7, Mean Corpuscular Hemoglobin Concent 31.7L, Red Cell Distribution Width 14.5, Platelet Count 243, Neutrophils (%) (Auto) 76.6H, Lymphocytes (%) (Auto) 13.1L, Monocytes (%) (Auto) 6.5H, Eosinophils (%) (Auto) 0.3, Basophils (%) (Auto) 1.4H , Neutrophils # (Auto) 11.7H, Lymphocytes # (Auto) 2.0, Monocytes # (Auto) 1.0H , Eosinophils # (Auto) 0.0, Basophils # (Auto) 0.2, Large Unclassified Cells % 2.1, Large Unclassified Cells # 0.3, Blood Gas Bicarbonate Standard 42.7, Venous Blood pH 7.388, Venous Blood Partial Pressure CO2 83.0H, Venous Blood Partial Pressure O2 87.0H, Venous Blood Total Carbon Dioxide 51.4H, Venous Blood HCO3 48.9H, Venous Blood Oxygen Saturation 96.4H, Venous Blood Base Excess 18.3H, Anion Gap 5L, Glomerular Filtration Rate > 60.0, Blood Urea Nitrogen 25H, Creatinine 0.67, Sodium Level 138, Potassium Level 3.6, Chloride Level 86L, Carbon Dioxide Level 47H, Calcium Level 9.4 CBC/BMP Laboratory Tests 04/14/17 00:33 Red Blood Count 5.38, Mean Corpuscular Volume 93.8, Mean Corpuscular Hemoglobin 29.7, Mean Corpuscular Hemoglobin Concent 31.7 L, Red Cell Distribution Width 14.5, Neutrophils (%) (Auto) 76.6 H, Lymphocytes (%) (Auto) 13.1 L, Monocytes (% ) (Auto) 6.5 H, Eosinophils (%) (Auto) 0.3, Basophils (%) (Auto) 1.4 H, Neutrophils # (Auto) 11.7 H, Lymphocytes # (Auto) 2.0, Monocytes # (Auto) 1.0 H , Eosinophils # (Auto) 0.0, Basophils # (Auto) 0.2, Calcium Level 9.4 Microbiology Microbiology 04/14/17 Blood Culture, Received Pending Problems (1) COPD exacerbation Status: Acute Response to Treatment: Stable Problem Text: Duonebs, O2 therapy, Chest PT, acapella, solumederol IV, Doxycycline started, CXR pending, WBC 15.2- expect 2/2 stress response, no fever. VBG- ph 7.3, HCo3 48.9, pco2 83- note pt's prior ABG's have Pco2 at around 70 mucinex-pt states she wants to try and "get up" what she is trying to cough up Resp panel pending, sputum cx pending ABG for morning (2) Diastolic CHF Status: Chronic Response to Treatment: Stable Problem Text: continue home lasix medication (3) Diabetes Status: Chronic Response to Treatment: Stable Problem Text: FS glucose in ED 331 Sliding Scale coverage (4) Nicotine abuse Status: Chronic Response to Treatment: Stable Problem Text: nicotine patch daily importance of cessation of smoking again stressed to pt. (5) Physical deconditioning Status: Chronic Response to Treatment: Stable Problem Text: have requested PT to eval and tx in AM (6) DVT prophylaxis Status: Acute Response to Treatment: Stable Problem Text: SCD TEDS Plan / VTE VTE Prophylaxis Ordered?: Yes GME ATTESTATION GME ATTESTATION My preceptor for this patient encounter was physically present in the building during the encounter and was fully available. As needed, all aspects of the patient interview, examination, medical decision making process, and medical care plan development were reviewed and approved by the preceptor. Preceptor is aware and concurs with the plan as stated in the body of this note and will attest to such by his/her cosignature. GULSHAN GUNTER DO Apr 14, 2017 03:02
[2017-04-14 03:05] VITALS: BP 141/78
[2017-04-14] MEDS: DOXYCYCLINE HYCLATE 100 MG in D5W MINI-BAG PLUS 100 ML IV SCH ×2 (03:46→15:26)
[2017-04-14] MEDS: ANEXSIA, NORCO 7.5MG/325MG TABLET(HYDROCODONE/APAP) PO PRN (04:43)
[2017-04-14] MEDS ORDERED: HumaLOG INSULIN (NovoLOG) PER UNIT SC ONE (04:45)
[2017-04-14 05:25] VITALS: BP 141/77
[2017-04-14 05:48] LABS: ABG BASE EXCESS 15.5 (-2.0-2.0); ABG STANDARD HCO3 39.4 MEQ/L (22.0-26.0); ABG TOTAL CO2 48.7 MEQ/L (23.0-31.0); ABG pH (ARTERIAL) 7.346 UNITS (7.350-7.450)
[2017-04-14 05:50] LABS: ABG PARTIAL PRESSURE CO2 86.1 mmHg (35.0-45.0)
[2017-04-14 06:54] LABS: MEAN CORPUSCULAR HEMOGLOBIN 29.9 pg (27.0-33.0); MEAN CORPUSCULAR HGB CONC 31.3 g/dl (32.0-36.5); MEAN CORPUSCULAR VOLUME 95.7 fl (80.0-96.0); RED CELL DISTRIBUTION WIDTH 14.8 % (11.5-14.5); WHITE BLOOD COUNT 12.8 K/mm3 (4.0-10.0)
[2017-04-14 07:01] LABS: ANION GAP 7 MEQ/L (8-16); BLOOD UREA NITROGEN 26 MG/DL (7-18); CALCIUM LEVEL 9.1 MG/DL (8.8-10.2); CARBON DIOXIDE LEVEL 43 MEQ/L (21-32); CHLORIDE LEVEL 86 MEQ/L (98-107); CREATININE FOR GFR 0.88 MG/DL (0.55-1.02); GLOMERULAR FILTRATION RATE > 60.0 (>45); POTASSIUM SERUM 3.8 MEQ/L (3.5-5.1); SODIUM LEVEL 136 MEQ/L (136-145)
[2017-04-14 07:16] LABS: GLUCOSE, FASTING 526 MG/DL (80-110)
[2017-04-14] MEDS: HumaLOG INSULIN (NovoLOG) PER UNIT SC SCH ×4 (07:30→20:18)
--- NOTE | 2017-04-14 07:34 | REP ---
Clinical: Dyspnea . Comparison: 04/09/2017 . Technique: PA and lateral. Findings: The mediastinum and cardiac silhouette are normal. The lung gonzalez are clear and without acute consolidation, effusion, or pneumothorax. The skeletal structures are intact and normal. Impression: 1. No acute cardiopulmonary process. Signed by Marky Puga MD 04/14/2017 07:26 A
[2017-04-14] MEDS ORDERED: HumaLOG INSULIN (NovoLOG) PER UNIT SC STA (07:56)
[2017-04-14] MEDS: ALPRAZolam 0.5 MG TAB PO SCH ×4 (08:17→20:19)
[2017-04-14] MEDS: NICOTINE 21MG/24HR 1 EA TRANSDERMAL TD SCH (08:17)
[2017-04-14] MEDS: SODIUM CHLORIDE NASAL 0.65% SPRAY BTL (OCEAN) SCH ×3 (08:18→20:20)
[2017-04-14] MEDS: guaiFENesin ER 600 MG TAB PO SCH ×2 (08:18→20:19)
[2017-04-14] MEDS: FLUTICASONE PROP 0.05% NASAL SPRAY 16 GM (FLONASE) SCH ×2 (08:18→20:20)
[2017-04-14 10:08] LABS: ABG BASE EXCESS 11.4 (-2.0-2.0); ABG HCO3 41.4 MEQ/L (22.0-26.0); ABG PARTIAL PRESSURE O2 76.5 mmHg (75.0-100.0); ABG STANDARD HCO3 35.1 MEQ/L (22.0-26.0); ABG TOTAL CO2 43.9 MEQ/L (23.0-31.0)
[2017-04-14 10:11] LABS: ABG PARTIAL PRESSURE CO2 80.4 mmHg (35.0-45.0)
[2017-04-14] MEDS: methylPREDNISolone INJ 125 MG/2 ML VIAL (J2930) IV SCH ×2 (12:09→20:15)
[2017-04-14] MEDS ORDERED: IPRATROPIUM 0.5MG/ALBUTEROL 2.5MG INH SOL UD 3ML (DUONEB)(J7620) NEB PRN (12:30)
[2017-04-14 14:00] VITALS: BP 136/78
[2017-04-14] MEDS: FUROSEMIDE 40 MG TAB PO SCH (16:19)
[2017-04-14 20:00] VITALS: BP 145/78
[2017-04-14] MEDS: methylPREDNISolone INJ 40 MG/1 ML VIAL (J2920) IV SCH (20:00)
[2017-04-14] MEDS ORDERED: methylPREDNISolone INJ 40 MG/1 ML VIAL (J2920) IV SCH (20:17)
[2017-04-15] MEDS: IPRATROPIUM 0.5MG/ALBUTEROL 2.5MG INH SOL UD 3ML (DUONEB)(J7620) NEB SCH ×3 (00:13→08:06)
[2017-04-15] MEDS: DOXYCYCLINE HYCLATE 100 MG in D5W MINI-BAG PLUS 100 ML IV SCH ×2 (02:43→15:03)
[2017-04-15] MEDS: methylPREDNISolone INJ 40 MG/1 ML VIAL (J2920) IV SCH (03:48)
[2017-04-15] MEDS: ANEXSIA, NORCO 7.5MG/325MG TABLET(HYDROCODONE/APAP) PO PRN ×2 (05:48→19:27)
[2017-04-15 06:00] VITALS: BP 132/76
[2017-04-15 06:08] LABS: BASO % 0.2 % (0.0-1.0); EOS % 0.3 % (0.0-3.0); LARGE UNSTAINED CELL % 0.3 % (0.0-4.0); LYMPH # 0.5 K/mm3 (1.5-4.5); LYMPH % 3.7 % (24.0-44.0); MEAN CORPUSCULAR HEMOGLOBIN 29.8 pg (27.0-33.0); MEAN CORPUSCULAR HGB CONC 31.7 g/dl (32.0-36.5); MEAN CORPUSCULAR VOLUME 94.1 fl (80.0-96.0); MONO # 0.4 K/mm3 (0.0-0.8); MONO % 3.3 % (0.0-5.0); NEUTROPHILS # 12.4 K/mm3 (1.8-7.7); NEUTROPHILS % 92.1 % (36.0-66.0); PLATELET COUNT, AUTOMATED 228 k/mm3 (150-450); WHITE BLOOD COUNT 13.5 K/mm3 (4.0-10.0)
[2017-04-15 07:25] LABS: CALCIUM LEVEL 9.5 MG/DL (8.8-10.2); POTASSIUM SERUM 4.4 MEQ/L (3.5-5.1)
[2017-04-15] MEDS: IPRATROPIUM 0.02% SOLN 0.5MG/2.5 ML NEB INH SCH ×4 (08:00→19:49)
[2017-04-15] MEDS: LEVALBUTEROL 1.25 MG/0.5 ML CONCENTRATE NEB INH SCH ×4 (08:00→19:50)
[2017-04-15] MEDS: ALPRAZolam 0.5 MG TAB PO SCH ×4 (08:24→20:36)
[2017-04-15] MEDS: NICOTINE 21MG/24HR 1 EA TRANSDERMAL TD SCH (08:24)
[2017-04-15] MEDS: guaiFENesin ER 600 MG TAB PO SCH ×2 (08:24→20:36)
[2017-04-15] MEDS: SODIUM CHLORIDE NASAL 0.65% SPRAY BTL (OCEAN) SCH ×3 (08:25→20:38)
[2017-04-15] MEDS: FLUTICASONE PROP 0.05% NASAL SPRAY 16 GM (FLONASE) SCH ×2 (08:25→20:37)
[2017-04-15] MEDS: HumaLOG INSULIN (NovoLOG) PER UNIT SC SCH ×4 (08:25→20:36)
[2017-04-15] MEDS ORDERED: IPRATROPIUM 0.02% SOLN 0.5MG/2.5 ML NEB INH PRN (08:30)
[2017-04-15] MEDS ORDERED: LEVALBUTEROL 1.25 MG/0.5 ML CONCENTRATE NEB INH PRN (08:30)
[2017-04-15] MEDS ORDERED: predniSONE 20 MG TAB PO SCH (09:00)
--- NOTE | 2017-04-15 13:57 | ECGEPIP ---
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
[2017-04-15 14:00] VITALS: BP 152/82
--- NOTE | 2017-04-15 14:12 | IPN ---
DATE: 04/15/2017 SUBJECTIVE: The patient tells me she feels completely back to normal and she is at her baseline. She denies any chest pain, shortness of breath, fever, chills, nausea, vomiting or diarrhea. OBJECTIVE: VITAL SIGNS: Temperature 97.2, pulse 119, respiratory rate 18, blood pressure 132/76 and oxygen saturation 96% on 2 liters. GENERAL: She is an obese, elderly, female sitting up in a recliner. She has just exited the shower. She does not appear to be in any acute distress whatsoever. HEENT: Cranial nerves II-XII are grossly intact. No elevation of CVP. CARDIOVASCULAR EXAM: S1, S2, regular. She is mildly tachycardic on my exam without any additional heart sounds appreciated. RESPIRATORY EXAM: She has diminished breath sounds and fair air movement with a prolonged expiratory phase, but no cassidy audible wheeze. ABDOMINAL EXAM: Grossly obese, but benign. EXTREMITIES: No clubbing, cyanosis or edema. LABORATORY STUDIES: WBC 13.5, hemoglobin 14.4, and platelet count 228. Chemistry panel with sodium 138, potassium 4.4, chloride 87, bicarbonate 14, BUN 23, creatinine 1.0, fasting glucose 403. Blood cultures thus far negative. ASSESSMENT AND PLAN: This is a 61-year-old female with decompensated chronic obstructive pulmonary disease (COPD). PROBLEMS: 1. Decompensated COPD. The patient was recently discharged for pneumonia and decompensated COPD. However, upon discharge, she began to immediately smoke once again and she began to have respiratory distress prompting her to represent to the hospital. At the present time, she is on doxycycline, IV Solu-Medrol and Duo-Nebs. I will space out her Duo-Nebs as I think it is causing her tachycardia and I will decrease her Solu-Medrol as she is having significant hyperglycemia associated with this and she does appear to be at her respiratory status baseline. A significant amount of time was spent educating the patient that all the medications in the world will serve her little good if she continues to smoke cigarettes. She briefly yesterday did express that she wished to be a DO NOT RESUSCITATE and we did fill out a medical orders for life-sustaining treatment (MOLST) form; however, after further discussion with her family she did reverse this. The patient is improving well at this time and will be discharged in the next 24 to 48 hours. Also, the patient is on Mucinex. 2. Diastolic congestive heart failure. Continue with home Lasix. She appears to be well compensated. 3. Diabetes. She is insulin dependent while in the hospital. Will taper her prednisone and continue with sliding scale coverage. 4. Nicotine abuse. She is using a Nicoderm patch, we will be sure to send her home with this. 5. Physical deconditioning. Now that she is breathing more easily, she states she is at her functional baseline and I will cancel the PT evaluation. 6. Anxiety. Continue with Xanax. 7. Chronic pain. Continue with hydrocodone. 8. Deep vein thrombosis (DVT) prophylaxis. She is on sequentials and thromboembolic deterrent stockings (TEDS). She is up and ambulating. I suspect she will be able to be discharged within the next 24-48 hours. Will continue to watch her closely.
[2017-04-15] MEDS: FUROSEMIDE 40 MG TAB PO SCH (17:11)
[2017-04-15] MEDS ORDERED: MOM 30ML SUSPENSION UDC PO PRN (19:30)
[2017-04-15 20:25] VITALS: BP 141/85
[2017-04-16] MEDS: OSELTAMIVIR PHOSPHATE 75 MG CAP (TAMIFLU) PO SCH ×3 (01:16→21:09)
[2017-04-16] MEDS: DOXYCYCLINE HYCLATE 100 MG in D5W MINI-BAG PLUS 100 ML IV SCH (02:44)
[2017-04-16] MEDS: ANEXSIA, NORCO 7.5MG/325MG TABLET(HYDROCODONE/APAP) PO PRN (02:44)
[2017-04-16 06:00] VITALS: BP 130/72
[2017-04-16 06:31] LABS: BASO % 0.2 % (0.0-1.0); EOS % 0.3 % (0.0-3.0); LARGE UNSTAINED CELL # 0.2 K/mm3 (0.0-0.4); LARGE UNSTAINED CELL % 1.5 % (0.0-4.0); LYMPH # 1.8 K/mm3 (1.5-4.5); LYMPH % 14.9 % (24.0-44.0); MEAN CORPUSCULAR HEMOGLOBIN 29.5 pg (27.0-33.0); MEAN CORPUSCULAR HGB CONC 31.6 g/dl (32.0-36.5); MEAN CORPUSCULAR VOLUME 93.2 fl (80.0-96.0); MONO # 0.8 K/mm3 (0.0-0.8); MONO % 6.6 % (0.0-5.0); NEUTROPHILS % 76.5 % (36.0-66.0); PLATELET COUNT, AUTOMATED 246 k/mm3 (150-450); RED CELL DISTRIBUTION WIDTH 14.9 % (11.5-14.5); WHITE BLOOD COUNT 11.8 K/mm3 (4.0-10.0)
[2017-04-16 07:01] LABS: BLOOD UREA NITROGEN 28 MG/DL (7-18); CALCIUM LEVEL 8.6 MG/DL (8.8-10.2); CHLORIDE LEVEL 91 MEQ/L (98-107); CREATININE FOR GFR 0.56 MG/DL (0.55-1.02); GLOMERULAR FILTRATION RATE > 60.0 (>45); GLUCOSE, FASTING 148 MG/DL (80-110); POTASSIUM SERUM 3.6 MEQ/L (3.5-5.1); SODIUM LEVEL 141 MEQ/L (136-145)
[2017-04-16 07:14] LABS: CARBON DIOXIDE LEVEL 45 MEQ/L (21-32)
[2017-04-16 07:18] LABS: ANION GAP 5 MEQ/L (8-16)
[2017-04-16] MEDS: IPRATROPIUM 0.02% SOLN 0.5MG/2.5 ML NEB INH SCH ×4 (07:20→19:37)
[2017-04-16] MEDS: LEVALBUTEROL 1.25 MG/0.5 ML CONCENTRATE NEB INH SCH ×4 (07:20→19:37)
[2017-04-16] MEDS: HumaLOG INSULIN (NovoLOG) PER UNIT SC SCH ×5 (08:02→23:56)
[2017-04-16] MEDS: predniSONE 20 MG TAB PO SCH (08:02)
[2017-04-16] MEDS: NICOTINE 21MG/24HR 1 EA TRANSDERMAL TD SCH (08:02)
[2017-04-16] MEDS: SODIUM CHLORIDE NASAL 0.65% SPRAY BTL (OCEAN) SCH ×3 (08:03→21:10)
[2017-04-16] MEDS: ALPRAZolam 0.5 MG TAB PO SCH ×4 (08:03→21:10)
[2017-04-16] MEDS: guaiFENesin ER 600 MG TAB PO SCH ×2 (08:03→21:10)
[2017-04-16] MEDS: FLUTICASONE PROP 0.05% NASAL SPRAY 16 GM (FLONASE) SCH ×2 (08:03→21:10)
[2017-04-16 09:00] VITALS: BP 183/87
[2017-04-16 10:15] VITALS: BP 142/88
--- NOTE | 2017-04-16 12:23 | IPN ---
DATE: 04/16/2017 SUBJECTIVE: This morning, the patient tells me that she is feeling well. She has had some shortness of breath overnight, but does appear to be improving. The patient's microbiology nasopharynx PCR did return positive for parainfluenza. The patient was started on oseltamivir (Tamiflu). OBJECTIVE: VITAL SIGNS: Temperature 97.3, pulse 104, respiratory rate 18, blood pressure 130/72, oxygen saturation 98% on 2 liters. GENERAL: She is an obese, elderly, female with almost a cushingoid look, sitting on the edge of her bed. She does not appear to be in any acute distress. HEENT: Cranial nerves II-XII are grossly intact. No elevation of CVP. CARDIOVASCULAR EXAM: S1, S2. Mildly tachycardic on my exam. RESPIRATORY EXAM: Diminished breath sounds at the bases. Prolonged expiratory phase. No audible wheeze. ABDOMINAL EXAM: Grossly obese. EXTREMITIES: No clubbing, cyanosis or edema. LABORATORY STUDIES: WBC 11.8, hemoglobin 13.4, hematocrit 42.3, platelet count 246. Chemistry panel with sodium 141, potassium 3.6 chloride 91, bicarbonate 45, BUN 28, creatinine 0.5, fasting glucose 148. Microbiology as outlined above. No new imaging. ASSESSMENT AND PLAN: This is a 61-year-old female with parainfluenza infection. PROBLEMS: 1. Parainfluenza infection and COPD. Likely had some worsening of her symptoms secondary to parainfluenza infection. She has been started on Tamiflu. She is improving. She does appear to be approaching her baseline. I suspect that she may be able to be discharged as early tomorrow. I am very quickly tapering her steroids, as I feel that this is likely the cause of her tachycardia and hyperglycemia, both of which are improving with a tapering dose. We will continue her on nebulizer treatments. I feel that her symptoms have been exacerbated after her recent discharge and going home and smoking and I have recommended that she avoids this in the future and she should definitely have a nicotine patch upon discharge. She is also on Mucinex. 2. Diastolic congestive heart failure. Continue with home Lasix. She appears to be well compensated. 3. Diabetes. Worsened by steroids and improving with tapering. Continue to monitor. 4. Nicotine abuse. As outlined above. Cessation counseling offered. NicoDerm patch in place. 5. Anxiety. Continue with Xanax. 6. Chronic pain. Continue with hydrocodone. 7. Deep vein thrombosis (DVT) prophylaxis. Sequentials and thromboembolic deterrent stockings (TEDS). The patient is up and ambulating. DISPOSITION: I suspect the patient can be discharged within the next 24 hours.
[2017-04-16 13:25] VITALS: BP 148/80
--- NOTE | 2017-04-16 14:53 | ECGEPIP ---
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
[2017-04-16] MEDS: FUROSEMIDE 40 MG TAB PO SCH (16:30)
[2017-04-16 22:00] VITALS: BP 148/90
[2017-04-17] MEDS: ANEXSIA, NORCO 7.5MG/325MG TABLET(HYDROCODONE/APAP) PO PRN (01:48)
[2017-04-17 06:00] VITALS: BP 134/70
[2017-04-17 06:24] LABS: ANION GAP 5 MEQ/L (8-16); BASO % 0.3 % (0.0-1.0); BLOOD UREA NITROGEN 25 MG/DL (7-18); CALCIUM LEVEL 8.6 MG/DL (8.8-10.2); CARBON DIOXIDE LEVEL 44 MEQ/L (21-32); CHLORIDE LEVEL 92 MEQ/L (98-107); CREATININE FOR GFR 0.62 MG/DL (0.55-1.02); EOS % 0.4 % (0.0-3.0); GLOMERULAR FILTRATION RATE > 60.0 (>45); GLUCOSE, FASTING 174 MG/DL (80-110); LARGE UNSTAINED CELL # 0.1 K/mm3 (0.0-0.4); LARGE UNSTAINED CELL % 1.1 % (0.0-4.0); LYMPH # 2.2 K/mm3 (1.5-4.5); LYMPH % 17.7 % (24.0-44.0); MEAN CORPUSCULAR HGB CONC 31.8 g/dl (32.0-36.5); MEAN CORPUSCULAR VOLUME 94.3 fl (80.0-96.0); MONO # 0.8 K/mm3 (0.0-0.8); MONO % 6.5 % (0.0-5.0); NEUTROPHILS # 8.5 K/mm3 (1.8-7.7); NEUTROPHILS % 73.9 % (36.0-66.0); PLATELET COUNT, AUTOMATED 218 k/mm3 (150-450); POTASSIUM SERUM 3.2 MEQ/L (3.5-5.1); SODIUM LEVEL 141 MEQ/L (136-145); WHITE BLOOD COUNT 11.5 K/mm3 (4.0-10.0)
[2017-04-17] MEDS ORDERED: POTASSIUM CHLORIDE 10 MEQ SR TABLET PO ONE (07:15)
[2017-04-17] MEDS: LEVALBUTEROL 1.25 MG/0.5 ML CONCENTRATE NEB INH SCH ×2 (07:28→11:15)
[2017-04-17] MEDS: IPRATROPIUM 0.02% SOLN 0.5MG/2.5 ML NEB INH SCH ×2 (07:28→11:15)
[2017-04-17] MEDS: predniSONE 20 MG TAB PO SCH (08:03)
[2017-04-17] MEDS: OSELTAMIVIR PHOSPHATE 75 MG CAP (TAMIFLU) PO SCH (08:03)
[2017-04-17] MEDS: guaiFENesin ER 600 MG TAB PO SCH (08:03)
[2017-04-17] MEDS: HumaLOG INSULIN (NovoLOG) PER UNIT SC SCH (08:03)
[2017-04-17] MEDS: ALPRAZolam 0.5 MG TAB PO SCH (08:03)
[2017-04-17] MEDS: FLUTICASONE PROP 0.05% NASAL SPRAY 16 GM (FLONASE) SCH (08:04)
[2017-04-17] MEDS: SODIUM CHLORIDE NASAL 0.65% SPRAY BTL (OCEAN) SCH (08:04)
[2017-04-17] MEDS: NICOTINE 21MG/24HR 1 EA TRANSDERMAL TD SCH (08:04)
[2017-04-17] MEDS ORDERED: IBUPROFEN 400 MG TAB PO ONE (08:45)
[2017-04-17] MEDS ORDERED: OSEL75CA2 PO (10:03)
[2017-04-17] MEDS ORDERED: NICO21DI31 TD (10:03)
[2017-04-17] MEDS ORDERED: PRED10TA2 PO (10:03)
--- NOTE | 2017-04-17 17:48 | DSES ---
DATE OF ADMISSION: 04/14/2017 DATE OF DISCHARGE: 04/17/2017 DISCHARGE DIAGNOSIS: Parainfluenza infection. SECONDARY DIAGNOSES: 1. Chronic obstructive pulmonary disease (COPD). 2. Tobacco abuse. 3. Diastolic congestive heart failure. 4. Diabetes. 5. Anxiety. 6. Chronic pain. HOSPITAL COURSE: The patient is a 61-year-old female who was recently admitted on 04/09/2017 and discharged 04/11/2017, at that time for pneumonia, decompensated chronic obstructive pulmonary disease (COPD). The patient was discharged home on 04/11/2017 and began smoking cigarettes, was around her granddaughter, who was sick with a respiratory tract infection, and presented back to the hospital on 04/14/2017. She was admitted to the medical/surgical floor. She was initially treated for decompensated COPD with steroids and nebulizer treatments. Nasal influenza did return back positive and she was started on Tamiflu. She did have a prompt resolution in her symptoms. She does chronically use oxygen at home and was quickly able to return to her baseline use of this. SUBJECTIVE: Today, the patient reports she feels well and has no complaints and is eager to go home. She denies chest pain, any worsening of her baseline shortness of breath, nausea, vomiting or diarrhea. OBJECTIVE: VITAL SIGNS: Temperature 96.6, pulse 111, respiratory 20, blood pressure 134/70, oxygen saturation 98% on 2 liters. GENERAL: She is an obese female laying in bed. She was accompanied by her significant other. Not in any acute distress. HEENT: Cranial nerves II-XII grossly intact. She has moist mucous membranes. No elevation of central venous pressure. CARDIOVASCULAR EXAMINATION: S1, S2. She is mildly tachycardic, but she just completed a nebulizer treatment. RESPIRATORY EXAMINATION: She has diminished breath sounds at the bases. No audible wheeze. ABDOMINAL EXAMINATION: Grossly obese. EXTREMITIES: No clubbing, cyanosis or edema. LABORATORY STUDIES: WBC 11.5, hemoglobin 30.4, hematocrit 42.2, platelet count 218. Chemistry panel: Sodium 141, potassium 3.2, repleted, chloride 92, bicarbonate 44, BUN 25, creatinine 0.6. MICROBIOLOGY: As outlined above. Blood cultures are negative. Sputum culture was negative. IMAGING: The patient had a chest x-ray at the time of admission on 04/14/2017, which revealed no acute cardiopulmonary processes. ASSESSMENT AND PLAN: This is a 61-year-old female with parainfluenza infection and likely decompensated chronic obstructive pulmonary disease (COPD) secondary to this. PROBLEMS: 1. Parainfluenza infection and chronic obstructive pulmonary disease (COPD). She was started on Tamiflu. She will receive six more doses. We have quickly weaned her steroids. She suffers from steroid-induced hyperglycemia. She appears to be tolerating it quite well. She is on her baseline respiratory status. I suspect her decompensation is always related to tobacco use and I have informed her that she cannot continue to smoke cigarettes at all and that no amount of medication will help her as long as she continues to smoke, and I did explain to her that while she is in the hospital, she tends to do very well; however, as soon as she leaves, she gets into trouble once she begins smoking again. She is on Mucinex. She is to continue on nebulizer treatments while in the hospital. 2. Diastolic congestive heart failure. She is to continue on her home dose of Lasix. She appeared to be well compensated during this stay. 3. Diabetes. Worsened by steroids, but improved control with tapering. 4. Nicotine abuse. As outlined above. Cessation and counseling offered. She is being discharged with a renewal for prescription for NicoDerm patch. 5. Anxiety. She was continued on her Xanax. 6. Chronic pain. She was continued on her chronic hydrocodone. DISPOSITION: The patient is being discharged home to the care of her family. She is at her functional baseline and her baseline respiratory status. Her clinical syndrome is improved. She is to follow with her primary care provider (PCP) in seven days. Her activity is as tolerated. Her diet is as prior to admission. She is to return to the emergency room (ER) if symptoms worsen. She is to avoid all tobacco products. Consider outpatient referral to psychiatry for depression, as per the patient's request. I do have concerns that given her frequent re-admissions and ongoing tobacco use, that when she is discharged today and begins smoking, there is a great possibility that she could return once again in respiratory distress. MEDICATIONS AT THE TIME OF DISCHARGE: - Tamiflu 75 mg twice a day for six more doses - prednisone 20 mg for two days, 10 mg for two days - hydrocodone/acetaminophen 7.5/325 one tablet three times a day - Ventolin HFA two puffs every 4 hours as needed for shortness of breath - albuterol nebulizer 2.5 mg every 4 hours as needed for shortness of breath - alprazolam 0.1 mg four times a day - fluticasone 50 mcg spray nasally twice a day - Lasix 40 mg nightly - Mucinex 600 mg twice a day - Incruse Ellipta 6.5 daily - metformin 1000 mg twice a day - NicoDerm 21 mg patch daily - potassium chloride 8 mEq daily - [place] nasal spray two sprays three times a day as needed for nasal congestion Greater than 30 minutes spent organizing disposition.
[2017-08-19] MEDS ORDERED: ALBU83IN INH (03:21)
[2017-08-19] MEDS ORDERED: METF10004 PO (03:21)
[2017-08-19] MEDS ORDERED: LEVO500T3 PO (03:21)
[2017-08-19] MEDS ORDERED: PRED10TA2 PO (03:21)
[2017-08-19] MEDS ORDERED: NICODIS TD (03:21)
[2017-08-22] MEDS ORDERED: TRAZ10TA PO (13:44)
[2017-08-22] MEDS ORDERED: CELE10TA PO (13:44)
[2017-08-22] MEDS ORDERED: LANTINJ4 SC (13:52)
[2017-08-22] MEDS ORDERED: CITA20TA4 PO (16:14)
== END 2017-04-17 11:53 | disposition home or self-care (01) | DRG 140 ==
LOC: M ED 00:08 → M ED INP 02:34 → M MSPAV 03:04
PROVIDERS: ADMIT Hospitalist; ATTEND Internal Medicine
DX: J44.1 Chronic obstructive pulmonary disease with (acute) exacerbation (principal); I50.32 Chronic diastolic (congestive) heart failure; E11.9 Type 2 diabetes mellitus without complications; E66.9 Obesity, unspecified; Z68.32 Body mass index [BMI] 32.0-32.9, adult; B34.8 Other viral infections of unspecified site; F41.9 Anxiety disorder, unspecified; F17.210 Nicotine dependence, cigarettes, uncomplicated; G89.29 Other chronic pain; Z79.899 Other long term (current) drug therapy

== ENCOUNTER 2017-12-14 18:26 | Emergency (ER) | payer OTHER ==
[2017-12-14] MEDS: NS 1,000 ML IV (19:14)
[2017-12-14] MEDS: IPRATROPIUM 0.5MG/ALBUTEROL 2.5MG INH SOL UD 3ML (DUONEB)(J7620) NEB ×3 (19:15→19:55)
[2017-12-14] MEDS: ASPIRIN 81 MG CHEW TABLET PO (19:15)
[2017-12-14 19:24] LABS: BASO % 0.4 % (0.0-1.0); EOS # 0.1 10^3/uL (0.0-0.50); EOS % 0.7 % (0.0-3.0); HEMATOCRIT 44.3 % (36.0-47.0); HEMOGLOBIN 14.3 g/dl (12.0-16.0); IMMATURE GRANULOCYTE % 0.7 % (0-3.0); LYMPH # 1.9 10^3/uL (1.5-4.5); LYMPH % 18.7 % (24.0-44.0); MEAN CORPUSCULAR HEMOGLOBIN 30.9 pg (27.0-33.0); MEAN CORPUSCULAR HGB CONC 32.3 g/dl (32.0-36.5); MEAN CORPUSCULAR VOLUME 95.7 fl (80.0-96.0); MONO % 10.3 % (0.0-5.0); NEUTROPHILS % 69.2 % (36.0-66.0); PLATELET COUNT, AUTOMATED 352 10^3/uL (150-450); RED BLOOD COUNT 4.63 10^6/uL (4.00-5.40); RED CELL DISTRIBUTION WIDTH 14.8 % (11.5-14.5); WHITE BLOOD COUNT 10.1 10^3/uL (4.0-10.0)
[2017-12-14 19:37] LABS: INR 0.88
[2017-12-14 19:45] LABS: ALBUMIN 2.8 GM/DL (3.2-5.2); ALKALINE PHOSPHATASE 155 U/L (45-117); ALT/SGPT 29 U/L (12-78); ANION GAP 7 MEQ/L (8-16); AST/SGOT 15 U/L (7-37); BILIRUBIN,DIRECT < 0.1 MG/DL (0.0-0.2); BILIRUBIN,TOTAL 0.3 MG/DL (0.2-1.0); BLOOD UREA NITROGEN 14 MG/DL (7-18); CALCIUM LEVEL 8.9 MG/DL (8.8-10.2); CARBON DIOXIDE LEVEL 44 MEQ/L (21-32); CHLORIDE LEVEL 84 MEQ/L (98-107); CK-MB VALUE MASS 1.2 NG/ML (0.0-3.6); CPK CREATINE PHOSPHOKINASE 27 U/L (26-192); CREATININE FOR GFR 0.87 MG/DL (0.55-1.30); GLOMERULAR FILTRATION RATE > 60.0 (>45); GLUCOSE, FASTING 352 MG/DL (70-100); LIPASE 163 U/L (73-393); MB/CK RELATIVE INDEX 4.44 (< OR =4); SODIUM LEVEL 135 MEQ/L (136-145); TOTAL PROTEIN 6.3 GM/DL (6.4-8.2); TROPONIN I < 0.02 NG/ML (< 0.10)
[2017-12-14 19:45] LABS: NT-PRO BNP 153 PG/ML (<125)
[2017-12-14] MEDS: POTASSIUM CHLORIDE 10 MEQ SR TABLET PO (20:32)
== END 2017-12-14 21:22 | disposition home or self-care (01) ==
LOC: M ED 18:26
DX: M54.12 Radiculopathy, cervical region (principal); J44.9 Chronic obstructive pulmonary disease, unspecified; R00.0 Tachycardia, unspecified; I45.19 Other right bundle-branch block; I51.7 Cardiomegaly; I77.1 Stricture of artery; I51.9 Heart disease, unspecified; E11.9 Type 2 diabetes mellitus without complications; F17.200 Nicotine dependence, unspecified, uncomplicated; Z82.49 Family history of ischemic heart disease and other diseases of the circulatory system; Z79.84 Long term (current) use of oral hypoglycemic drugs; Z79.899 Other long term (current) drug therapy
CPT/HCPCS: 71045

== ENCOUNTER 2017-12-23 11:33 | Emergency (ER) | payer OTHER ==
[2017-12-23] MEDS: ONDANSETRON 4MG/2ML VIAL (J2405) IV (12:54)
[2017-12-23] MEDS: MORPHINE 2 MG/ML 1ML SYRINGE (J2270) IV (12:55)
[2017-12-23 15:39] LABS: BASO # 0.1 10^3/uL (0.0-0.2); BASO % 0.4 % (0.0-1.0); EOS % 0.1 % (0.0-3.0); HEMATOCRIT 40.7 % (36.0-47.0); HEMOGLOBIN 13.1 g/dl (12.0-16.0); IMMATURE GRANULOCYTE % 2.3 % (0-3.0); LYMPH # 0.9 10^3/uL (1.5-4.5); LYMPH % 7.6 % (24.0-44.0); MEAN CORPUSCULAR HEMOGLOBIN 31.6 pg (27.0-33.0); MEAN CORPUSCULAR HGB CONC 32.2 g/dl (32.0-36.5); MEAN CORPUSCULAR VOLUME 98.3 fl (80.0-96.0); MONO # 1.1 10^3/uL (0.0-0.8); MONO % 9.2 % (0.0-5.0); NEUTROPHILS # 9.6 10^3/uL (1.8-7.7); NEUTROPHILS % 80.4 % (36.0-66.0); PLATELET COUNT, AUTOMATED 283 10^3/uL (150-450); RED BLOOD COUNT 4.14 10^6/uL (4.00-5.40); RED CELL DISTRIBUTION WIDTH 15.6 % (11.5-14.5); WHITE BLOOD COUNT 11.9 10^3/uL (4.0-10.0)
[2017-12-23 15:58] LABS: ERYTHROCYTE SEDIMENTATION RATE 16 mm/hr (0-30)
[2017-12-23] MEDS: PERCOCET 5MG/325MG TAB PO (16:02)
[2017-12-23 16:11] LABS: ALBUMIN/GLOBULIN RATIO 1.07 (1.00-1.93); ALKALINE PHOSPHATASE 93 U/L (45-117); ALT/SGPT 27 U/L (12-78); ANION GAP 7 MEQ/L (8-16); AST/SGOT 7 U/L (7-37); BILIRUBIN,DIRECT < 0.1 MG/DL (0.0-0.2); BILIRUBIN,TOTAL 0.2 MG/DL (0.2-1.0); BLOOD UREA NITROGEN 18 MG/DL (7-18); C REACTIVE PROTEIN QUANTITATIV 1.28 MG/DL (0.00-0.30); CALCIUM LEVEL 8.2 MG/DL (8.8-10.2); CARBON DIOXIDE LEVEL 38 MEQ/L (21-32); CHLORIDE LEVEL 94 MEQ/L (98-107); CPK CREATINE PHOSPHOKINASE 20 U/L (26-192); CREATININE FOR GFR 0.78 MG/DL (0.55-1.30); GLOMERULAR FILTRATION RATE > 60.0 (>45); GLUCOSE, FASTING 248 MG/DL (70-100); POTASSIUM SERUM 4.2 MEQ/L (3.5-5.1); SODIUM LEVEL 139 MEQ/L (136-145); TOTAL PROTEIN 5.8 GM/DL (6.4-8.2); TROPONIN I < 0.02 NG/ML (< 0.10)
[2017-12-23 16:17] LABS: CK-MB VALUE MASS 1.7 NG/ML (0.0-3.6); THYROID STIMULATING HORMONE 0.156 uIU/ML (0.358-3.740)
== END 2017-12-23 18:26 | disposition home or self-care (01) ==
LOC: M ED 11:33
DX: M54.12 Radiculopathy, cervical region (principal); M25.512 Pain in left shoulder; M50.322 Other cervical disc degeneration at C5-C6 level; M50.323 Other cervical disc degeneration at C6-C7 level; I51.7 Cardiomegaly; R00.0 Tachycardia, unspecified; I45.19 Other right bundle-branch block; I50.9 Heart failure, unspecified; E11.9 Type 2 diabetes mellitus without complications; I10 Essential (primary) hypertension; J44.9 Chronic obstructive pulmonary disease, unspecified; Z87.891 Personal history of nicotine dependence; Z79.4 Long term (current) use of insulin; Z79.899 Other long term (current) drug therapy
CPT/HCPCS: J2405

== ENCOUNTER 2017-12-30 22:15 | Emergency (ER) | payer OTHER ==
[2017-12-30] MEDS: NS 500 ML IV ×2 (22:59→23:45)
[2017-12-30 23:00] LABS: BEDSIDE GLUCOSE 386 MG/DL (80-115)
[2017-12-30 23:21] LABS: BASO # 0.1 10^3/uL (0.0-0.2); BASO % 0.4 % (0.0-1.0); EOS % 0.1 % (0.0-3.0); HEMATOCRIT 44.6 % (36.0-47.0); HEMOGLOBIN 14.4 g/dl (12.0-16.0); IMMATURE GRANULOCYTE % 1.1 % (0-3.0); LYMPH # 1.1 10^3/uL (1.5-4.5); LYMPH % 8.1 % (24.0-44.0); MEAN CORPUSCULAR HEMOGLOBIN 31.6 pg (27.0-33.0); MEAN CORPUSCULAR HGB CONC 32.3 g/dl (32.0-36.5); MONO # 1.3 10^3/uL (0.0-0.8); MONO % 9.4 % (0.0-5.0); NEUTROPHILS # 11.3 10^3/uL (1.8-7.7); NEUTROPHILS % 80.9 % (36.0-66.0); PLATELET COUNT, AUTOMATED 377 10^3/uL (150-450); RED BLOOD COUNT 4.55 10^6/uL (4.00-5.40); RED CELL DISTRIBUTION WIDTH 15.3 % (11.5-14.5); WHITE BLOOD COUNT 13.9 10^3/uL (4.0-10.0)
[2017-12-30 23:28] LABS: APPEARANCE, URINE CLOUDY (CLEAR); BACTERIA, URINE AUTO NEGATIVE (NEGATIVE); BILIRUBIN, URINE AUTO NEGATIVE (NEGATIVE); BLOOD, URINE BLOOD 2+ (NEGATIVE); COLOR, URINE YELLOW (YELLOW); GLUCOSE, URINE (UA) AUTO 3+ mg/dL (NEGATIVE); KETONE, URINE AUTO NEGATIVE (NEGATIVE); LEUKOCYTE ESTERASE, URINE AUTO 3+ (NEGATIVE); MUCUS, URINE SMALL (NEGATIVE); NITRITE, URINE AUTO NEGATIVE (NEGATIVE); PROTEIN, URINE AUTO NEGATIVE (NEGATIVE); RBC, URINE AUTO 87 /HPF (0-3); SPECIFIC GRAVITY URINE AUTO 1.009 (1.002-1.035); SQUAMOUS EPITHELIAL CELL UR AU 2 /HPF (0-6); UROBILINOGEN, URINE AUTO 0.2 mg/dL (0.0-2.0); WBC, URINE AUTO TNTC /HPF (0-3); YEAST LIKE CELL URINE AUTO LARGE
[2017-12-30 23:37] LABS: ALBUMIN 3.3 GM/DL (3.2-5.2); ALBUMIN/GLOBULIN RATIO 0.87 (1.00-1.93); ALKALINE PHOSPHATASE 126 U/L (45-117); ALT/SGPT 37 U/L (12-78); ANION GAP 9 MEQ/L (8-16); AST/SGOT 19 U/L (7-37); BILIRUBIN,DIRECT < 0.1 MG/DL (0.0-0.2); BILIRUBIN,TOTAL 0.3 MG/DL (0.2-1.0); BLOOD UREA NITROGEN 20 MG/DL (7-18); CALCIUM LEVEL 8.8 MG/DL (8.8-10.2); CARBON DIOXIDE LEVEL 41 MEQ/L (21-32); CHLORIDE LEVEL 89 MEQ/L (98-107); CREATININE FOR GFR 0.83 MG/DL (0.55-1.30); GLOMERULAR FILTRATION RATE > 60.0 (>45); LIPASE 226 U/L (73-393); POTASSIUM SERUM 3.3 MEQ/L (3.5-5.1); SODIUM LEVEL 139 MEQ/L (136-145); TOTAL PROTEIN 7.1 GM/DL (6.4-8.2)
[2017-12-30 23:40] LABS: GLUCOSE, FASTING 402 MG/DL (70-100)
[2017-12-30 23:41] LABS: LACTIC ACID SEPSIS PROTOCOL 3.8 MMOL/L (0.4-2.0)
[2017-12-31 00:04] LABS: T UPTAKE 40 % (30-39); THYROID STIMULATING HORMONE 0.331 uIU/ML (0.358-3.740); THYROXINE (T4) 12.5 UG/DL (4.5-12.0)
[2017-12-31] MEDS: POTASSIUM CHLORIDE 10 MEQ SR TABLET PO (00:23)
[2017-12-31] MEDS: NS 500 ML IV (00:23)
[2017-12-31] MEDS: FLUCONAZOLE 100 MG TAB PO (00:23)
[2017-12-31] MEDS: HumuLIN R (REGULAR) INSULIN (NovoLIN R) **100U/ML** PER UNIT IV (00:24)
[2017-12-31 01:31] LABS: BEDSIDE GLUCOSE 210 MG/DL (80-115)
[2017-12-31 03:03] LABS: LACTIC ACID SEPSIS PROTOCOL 1.9 MMOL/L (0.4-2.0)
== END 2017-12-31 03:25 | disposition home or self-care (01) ==
LOC: M ED 22:15
DX: E11.65 Type 2 diabetes mellitus with hyperglycemia (principal); E86.9 Volume depletion, unspecified; B37.41 Candidal cystitis and urethritis; I25.10 Atherosclerotic heart disease of native coronary artery without angina pectoris; I10 Essential (primary) hypertension; J44.9 Chronic obstructive pulmonary disease, unspecified; F17.200 Nicotine dependence, unspecified, uncomplicated; Z79.899 Other long term (current) drug therapy; Z79.4 Long term (current) use of insulin
CPT/HCPCS: 71045

== ENCOUNTER 2018-03-14 13:25 | Emergency (ER) | payer OTHER ==
[2018-03-14] MEDS: IPRATROPIUM 0.5MG/ALBUTEROL 2.5MG INH SOL UD 3ML (DUONEB)(J7620) NEB (14:29)
[2018-03-14 14:33] LABS: ABG BASE EXCESS 10.5 (-2.0-2.0); ABG HCO3 37.2 MEQ/L (22.0-26.0); ABG O2 SATURATION 92.2 % (95.0-99.0); ABG PARTIAL PRESSURE CO2 57.7 mmHg (35.0-45.0); ABG PARTIAL PRESSURE O2 61.4 mmHg (75.0-100.0); ABG STANDARD HCO3 34.1 MEQ/L (22.0-26.0); ABG pH (ARTERIAL) 7.427 UNITS (7.350-7.450)
[2018-03-14] MEDS: FUROSEMIDE 40 MG/4 ML VIAL (J1940) IV (14:57)
[2018-03-14] MEDS: CARISOPRODOL 350 MG TAB PO (15:16)
[2018-03-14] MEDS: KETOROLAC 30 MG/ML VIAL (J1885) IV (15:16)
[2018-03-14 16:51] LABS: BASO # 0.1 10^3/uL (0.0-0.2); BASO % 0.4 % (0.0-1.0); EOS % 0.1 % (0.0-3.0); HEMOGLOBIN 13.9 g/dl (12.0-15.5); IMMATURE GRANULOCYTE % 1.2 % (0-3.0); LYMPH # 1.6 10^3/uL (1.5-4.5); LYMPH % 14.3 % (24.0-44.0); MEAN CORPUSCULAR HEMOGLOBIN 31.6 pg (27.0-33.0); MEAN CORPUSCULAR HGB CONC 32.3 g/dl (32.0-36.5); MEAN CORPUSCULAR VOLUME 97.7 fl (80.0-96.0); MONO # 1.1 10^3/uL (0.0-0.8); MONO % 10.1 % (0.0-5.0); NEUTROPHILS # 8.3 10^3/uL (1.8-7.7); NEUTROPHILS % 73.9 % (36.0-66.0); PLATELET COUNT, AUTOMATED 260 10^3/uL (150-450); RED CELL DISTRIBUTION WIDTH 13.2 % (11.5-14.5); WHITE BLOOD COUNT 11.2 10^3/uL (4.0-10.0)
[2018-03-14] MEDS: MORPHINE 4 MG/ML 1ML VIAL/SYRINGE (J2270) IV (17:14)
[2018-03-14 17:24] LABS: ALBUMIN 2.9 GM/DL (3.2-5.2); ALBUMIN/GLOBULIN RATIO 0.94 (1.00-1.93); ALKALINE PHOSPHATASE 97 U/L (45-117); ALT/SGPT 37 U/L (12-78); ANION GAP 5 MEQ/L (8-16); AST/SGOT 17 U/L (7-37); BILIRUBIN,DIRECT < 0.1 MG/DL (0.0-0.2); BILIRUBIN,TOTAL 0.2 MG/DL (0.2-1.0); BLOOD UREA NITROGEN 14 MG/DL (7-18); CALCIUM LEVEL 8.6 MG/DL (8.8-10.2); CARBON DIOXIDE LEVEL 39 MEQ/L (21-32); CHLORIDE LEVEL 94 MEQ/L (98-107); CPK CREATINE PHOSPHOKINASE 31 U/L (26-192); CREATININE FOR GFR 0.66 MG/DL (0.55-1.30); GLOMERULAR FILTRATION RATE > 60.0 (>45); GLUCOSE, FASTING 261 MG/DL (70-100); POTASSIUM SERUM 3.4 MEQ/L (3.5-5.1); SODIUM LEVEL 138 MEQ/L (136-145); THYROXINE (T4) 9.9 UG/DL (4.5-12.0); TROPONIN I 0.02 NG/ML (< 0.10)
[2018-03-14 17:25] LABS: CK-MB VALUE MASS 2.7 NG/ML (<3.6); NT-PRO BNP 217 PG/ML (<125)
[2018-03-14 18:10] LABS: LACTIC ACID SEPSIS PROTOCOL 2.9 MMOL/L (0.4-2.0)
== END 2018-03-14 18:35 | disposition home or self-care (01) ==
LOC: M ED 13:25
DX: I50.9 Heart failure, unspecified (principal); G89.29 Other chronic pain; E11.9 Type 2 diabetes mellitus without complications; I11.0 Hypertensive heart disease with heart failure; J44.9 Chronic obstructive pulmonary disease, unspecified; I25.10 Atherosclerotic heart disease of native coronary artery without angina pectoris; K21.9 Gastro-esophageal reflux disease without esophagitis; Z79.899 Other long term (current) drug therapy; Z79.84 Long term (current) use of oral hypoglycemic drugs; F17.210 Nicotine dependence, cigarettes, uncomplicated
CPT/HCPCS: J2270

== ENCOUNTER 2018-03-20 15:29 | Emergency (ER) | payer OTHER ==
[2018-03-20] MEDS: IPRATROPIUM 0.5MG/ALBUTEROL 2.5MG INH SOL UD 3ML (DUONEB)(J7620) NEB (16:28)
[2018-03-20 16:38] LABS: BASO % 0.4 % (0.0-1.0); EOS % 0.5 % (0.0-3.0); HEMATOCRIT 41.6 % (36.0-47.0); HEMOGLOBIN 13.3 g/dl (12.0-15.5); IMMATURE GRANULOCYTE % 0.8 % (0-3.0); LYMPH # 1.6 10^3/uL (1.5-4.5); LYMPH % 18.9 % (24.0-44.0); MEAN CORPUSCULAR HEMOGLOBIN 31.4 pg (27.0-33.0); MEAN CORPUSCULAR VOLUME 98.3 fl (80.0-96.0); MONO # 1.2 10^3/uL (0.0-0.8); NEUTROPHILS # 5.6 10^3/uL (1.8-7.7); NEUTROPHILS % 65.4 % (36.0-66.0); PLATELET COUNT, AUTOMATED 301 10^3/uL (150-450); RED BLOOD COUNT 4.23 10^6/uL (4.00-5.40); RED CELL DISTRIBUTION WIDTH 13.2 % (11.5-14.5); WHITE BLOOD COUNT 8.6 10^3/uL (4.0-10.0)
[2018-03-20] MEDS: FUROSEMIDE 40 MG/4 ML VIAL (J1940) IV (16:41)
[2018-03-20 16:49] LABS: INR 0.89; PARTIAL THROMBOPLASTIN TIME 26.9 SECONDS (26.8-37.9); PROTHROMBIN TIME 12.1 SECONDS (12.4-14.5)
[2018-03-20 17:05] LABS: ANION GAP 4 MEQ/L (8-16); BLOOD UREA NITROGEN 28 MG/DL (7-18); CARBON DIOXIDE LEVEL 41 MEQ/L (21-32); CHLORIDE LEVEL 90 MEQ/L (98-107); CPK CREATINE PHOSPHOKINASE 39 U/L (26-192); CREATININE FOR GFR 1.11 MG/DL (0.55-1.30); FREE T4 1.16 NG/DL (0.76-1.46); GLUCOSE, FASTING 286 MG/DL (70-100); POTASSIUM SERUM 3.9 MEQ/L (3.5-5.1); SODIUM LEVEL 135 MEQ/L (136-145); TROPONIN I < 0.02 NG/ML (< 0.10)
[2018-03-20 17:10] LABS: CK-MB VALUE MASS 2.1 NG/ML (<3.6); MB/CK RELATIVE INDEX 5.38 (< OR =4); NT-PRO BNP 406 PG/ML (<125); THYROID STIMULATING HORMONE 0.414 uIU/ML (0.358-3.740)
[2018-03-20] MEDS ORDERED: ACETAMINOPHEN 325 MG TAB As Ordered (17:56)
[2018-03-20] MEDS: ACETAMINOPHEN TAB 650MG DOSE (2X325MG) PO (18:14)
[2018-03-20] MEDS ORDERED: ISOVUE-370 76% 100ML VIAL (Q9967) As Ordered (18:23)
== END 2018-03-20 20:44 | disposition home or self-care (01) ==
LOC: M ED 15:29
DX: R06.02 Shortness of breath (principal); R60.0 Localized edema; R91.8 Other nonspecific abnormal finding of lung field; R00.0 Tachycardia, unspecified; I50.9 Heart failure, unspecified; I11.0 Hypertensive heart disease with heart failure; E11.9 Type 2 diabetes mellitus without complications; J44.9 Chronic obstructive pulmonary disease, unspecified; E66.9 Obesity, unspecified; F33.9 Major depressive disorder, recurrent, unspecified; F41.9 Anxiety disorder, unspecified; F17.200 Nicotine dependence, unspecified, uncomplicated; F10.11 Alcohol abuse, in remission; Z98.890 Other specified postprocedural states; Z79.84 Long term (current) use of oral hypoglycemic drugs; Z79.899 Other long term (current) drug therapy
CPT/HCPCS: Q9967

== ENCOUNTER 2018-04-17 15:04 | Inpatient (IN) | payer OTHER ==
[2018-04-17 15:48] LABS: BASO # 0.1 10^3/uL (0.0-0.2); BASO % 0.5 % (0.0-1.0); EOS # 0.2 10^3/uL (0.0-0.50); HEMATOCRIT 38.3 % (36.0-47.0); HEMOGLOBIN 12.2 g/dl (12.0-15.5); IMMATURE GRANULOCYTE % 0.8 % (0-3.0); LYMPH # 2.6 10^3/uL (1.5-4.5); MEAN CORPUSCULAR HGB CONC 31.9 g/dl (32.0-36.5); MEAN CORPUSCULAR VOLUME 97.5 fl (80.0-96.0); MONO # 1.5 10^3/uL (0.0-0.8); MONO % 12.6 % (0.0-5.0); NEUTROPHILS # 7.2 10^3/uL (1.8-7.7); NEUTROPHILS % 62.1 % (36.0-66.0); PLATELET COUNT, AUTOMATED 398 10^3/uL (150-450); RED BLOOD COUNT 3.93 10^6/uL (4.00-5.40); RED CELL DISTRIBUTION WIDTH 13.9 % (11.5-14.5); WHITE BLOOD COUNT 11.6 10^3/uL (4.0-10.0)
[2018-04-17 15:48] LABS: BEDSIDE GLUCOSE 117 MG/DL (80-115)
[2018-04-17 16:23] LABS: LACTIC ACID SEPSIS PROTOCOL 0.6 MMOL/L (0.4-2.0)
[2018-04-17 16:31] LABS: AMORPHOUS SEDIMENT RFX SMALL (NEGATIVE); KETONE, URINE AUTO RFX NEGATIVE (NEGATIVE); NITRITE, URINE AUTO RFX NEGATIVE (NEGATIVE); RBC, URINE AUTO RFX 39 /HPF (0-3); SPECIFIC GRAVITY UR AUTO RFX 1.011 (1.002-1.035); SQUAM EPITHELIAL CELL UR AURFX 3 /HPF (0-6); YEAST LIKE CELL URINE AUTO RFX SMALL
[2018-04-17 16:32] LABS: LEUKOCYTE ESTERASE UR AUTO RFX 3+ (NEGATIVE); WBC, URINE AUTO RFX TNTC /HPF (0-3)
[2018-04-17 16:42] LABS: AMPHETAMINES LEVEL URINE NEGATIVE (NEGATIVE); BARBITURATES URINE NEGATIVE (NEGATIVE); BENZODIAZEPINES URINE POSITIVE (NEGATIVE); CANNABINOIDS URINE NEGATIVE (NEGATIVE); COCAINE METABOLITE URINE NEGATIVE (NEGATIVE); METHADONE URINE NEGATIVE (NEGATIVE); OPIATES URINE POSITIVE (NEGATIVE); PHENCYCLIDINE URINE NEGATIVE (NEGATIVE)
[2018-04-17] MEDS: NS 1,000 ML IV ×3 (16:45→22:50)
[2018-04-17] MEDS: NALOXONE INJ 0.4 MG/1 ML VIAL (J2310) IV (16:55)
[2018-04-17] MEDS: IPRATROPIUM 0.5MG/ALBUTEROL 2.5MG INH SOL UD 3ML (DUONEB)(J7620) NEB ×2 (17:08→20:00)
[2018-04-17 17:20] LABS: AMMONIA 27 uMOL/L (<32)
[2018-04-17 17:51] LABS: ALBUMIN/GLOBULIN RATIO 0.94 (1.00-1.93); ALKALINE PHOSPHATASE 65 U/L (45-117); ALT/SGPT 14 U/L (12-78); ANION GAP 10 MEQ/L (8-16); AST/SGOT 12 U/L (7-37); BILIRUBIN,DIRECT < 0.1 MG/DL (0.0-0.2); BILIRUBIN,TOTAL 0.2 MG/DL (0.2-1.0); BLOOD UREA NITROGEN 69 MG/DL (7-18); CARBON DIOXIDE LEVEL 33 MEQ/L (21-32); CHLORIDE LEVEL 96 MEQ/L (98-107); CPK CREATINE PHOSPHOKINASE 95 U/L (26-192); CREATININE FOR GFR 1.48 MG/DL (0.55-1.30); GLUCOSE, FASTING 115 MG/DL (70-100); POTASSIUM SERUM 4.7 MEQ/L (3.5-5.1); SODIUM LEVEL 139 MEQ/L (136-145); TOTAL PROTEIN 6.2 GM/DL (6.4-8.2); TROPONIN I < 0.02 NG/ML (< 0.10)
[2018-04-17 17:52] LABS: ACETAMINOPHEN LEVEL < 2.0 UG/ML (10.0-30.0); SALICYLATE LEVEL 1.7 MG/DL (5.0-30.0)
[2018-04-17 17:52] LABS: ETHYL ALCOHOL (ETHANOL) 0.003 % (0.000-0.010)
[2018-04-17 17:56] LABS: CK-MB VALUE MASS 1.8 NG/ML (<3.6); MB/CK RELATIVE INDEX 1.89 (< OR =4); THYROID STIMULATING HORMONE 0.327 uIU/ML (0.358-3.740)
[2018-04-17] MEDS: cefTRIAXone SOD 2 GM in D5W MINI-BAG PLUS 50 ML IV (18:00)
[2018-04-17] MEDS ORDERED: ISOVUE-370 76% 100ML VIAL (Q9967) As Ordered (18:15)
[2018-04-17 18:44] LABS: LIPASE 167 U/L (73-393)
[2018-04-17] MEDS ORDERED: ONDANSETRON 4MG/2ML VIAL (J2405) IV (20:45)
[2018-04-17 21:29] LABS: ABG HCO3 31.1 MEQ/L (22.0-26.0); ABG O2 SATURATION 95.1 % (95.0-99.0); ABG PARTIAL PRESSURE CO2 59.5 mmHg (35.0-45.0); ABG PARTIAL PRESSURE O2 74.5 mmHg (75.0-100.0); ABG TOTAL CO2 32.9 MEQ/L (23.0-31.0); ABG pH (ARTERIAL) 7.336 UNITS (7.350-7.450)
[2018-04-17] MEDS ORDERED: DEXTROSE 50% 50 ML SYRINGE IV (21:30)
[2018-04-17] MEDS ORDERED: GLUCOSE 4 GM CHEW TABLET PO (21:30)
[2018-04-17] MEDS ORDERED: GLUCAGON FOR INJ 1 MG VIAL (J1610) SC (21:30)
[2018-04-17] MEDS: PANTOPRAZOLE 40MG INJ (PROTONIX) (C9113) IV (23:06)
[2018-04-18 00:14] LABS: BEDSIDE GLUCOSE 150 MG/DL (80-115)
[2018-04-18] MEDS: HumaLOG INSULIN (NovoLOG) PER UNIT SC ×5 (00:40→20:49)
[2018-04-18 05:39] LABS: BASO % 0.4 % (0.0-1.0); EOS # 0.2 10^3/uL (0.0-0.50); EOS % 1.9 % (0.0-3.0); HEMATOCRIT 32.6 % (36.0-47.0); HEMOGLOBIN 10.5 g/dl (12.0-15.5); IMMATURE GRANULOCYTE % 0.6 % (0-3.0); LYMPH # 1.6 10^3/uL (1.5-4.5); LYMPH % 16.4 % (24.0-44.0); MEAN CORPUSCULAR HGB CONC 32.2 g/dl (32.0-36.5); MEAN CORPUSCULAR VOLUME 96.2 fl (80.0-96.0); MONO # 1.4 10^3/uL (0.0-0.8); MONO % 14.5 % (0.0-5.0); NEUTROPHILS # 6.5 10^3/uL (1.8-7.7); NEUTROPHILS % 66.2 % (36.0-66.0); PLATELET COUNT, AUTOMATED 323 10^3/uL (150-450); RED BLOOD COUNT 3.39 10^6/uL (4.00-5.40); RED CELL DISTRIBUTION WIDTH 13.9 % (11.5-14.5); WHITE BLOOD COUNT 9.8 10^3/uL (4.0-10.0)
[2018-04-18 05:49] LABS: ABG BASE EXCESS 6.4 (-2.0-2.0); ABG HCO3 32.9 MEQ/L (22.0-26.0); ABG O2 SATURATION 94.9 % (95.0-99.0); ABG PARTIAL PRESSURE CO2 57.2 mmHg (35.0-45.0); ABG PARTIAL PRESSURE O2 76.4 mmHg (75.0-100.0); ABG STANDARD HCO3 30.2 MEQ/L (22.0-26.0); ABG TOTAL CO2 34.7 MEQ/L (23.0-31.0); ABG pH (ARTERIAL) 7.378 UNITS (7.350-7.450)
[2018-04-18 05:59] LABS: ALBUMIN 2.6 GM/DL (3.2-5.2); ALBUMIN/GLOBULIN RATIO 0.72 (1.00-1.93); ALT/SGPT 13 U/L (12-78); ANION GAP 9 MEQ/L (8-16); AST/SGOT 12 U/L (7-37); BILIRUBIN,TOTAL 0.2 MG/DL (0.2-1.0); BLOOD UREA NITROGEN 51 MG/DL (7-18); CALCIUM LEVEL 8.2 MG/DL (8.8-10.2); CARBON DIOXIDE LEVEL 30 MEQ/L (21-32); CHLORIDE LEVEL 99 MEQ/L (98-107); CPK CREATINE PHOSPHOKINASE 63 U/L (26-192); CREATININE FOR GFR 0.85 MG/DL (0.55-1.30); FREE THYROXINE INDEX 3.4 % (1.3-4.8); GLOMERULAR FILTRATION RATE > 60.0 (>45); GLUCOSE, FASTING 159 MG/DL (70-100); MAGNESIUM LEVEL 2.1 MG/DL (1.8-2.4); POTASSIUM SERUM 4.1 MEQ/L (3.5-5.1); SODIUM LEVEL 138 MEQ/L (136-145); T UPTAKE 39 % (30-39); THYROXINE (T4) 8.6 UG/DL (4.5-12.0); TOTAL PROTEIN 6.2 GM/DL (6.4-8.2); TROPONIN I < 0.02 NG/ML (< 0.10)
[2018-04-18 06:05] LABS: ALKALINE PHOSPHATASE 54 U/L (45-117); CK-MB VALUE MASS < 1.0 NG/ML (<3.6); MB/CK RELATIVE INDEX 1.58 (< OR =4); THYROID STIMULATING HORMONE 0.181 uIU/ML (0.358-3.740)
[2018-04-18] MEDS: NS 1,000 ML IV ×2 (06:36→16:23)
[2018-04-18] MEDS: IPRATROPIUM 0.5MG/ALBUTEROL 2.5MG INH SOL UD 3ML (DUONEB)(J7620) NEB ×4 (07:50→20:05)
[2018-04-18] MEDS: GABAPENTIN 100 MG CAP PO ×3 (09:00→20:05)
[2018-04-18] MEDS: ANEXSIA, NORCO 7.5MG/325MG TABLET(HYDROCODONE/APAP) PO ×2 (09:31→20:06)
[2018-04-18] MEDS: NICOTINE 21MG/24HR 1 EA TRANSDERMAL TD (09:32)
[2018-04-18] MEDS: ENOXAPARIN 30 MG/0.3 ML SYR (J1650) SC (09:32)
[2018-04-18 11:42] LABS: BEDSIDE GLUCOSE 292 MG/DL (80-115)
[2018-04-18 13:10] LABS: CK-MB VALUE MASS 1.1 NG/ML (<3.6); CPK CREATINE PHOSPHOKINASE 53 U/L (26-192); MB/CK RELATIVE INDEX 2.07 (< OR =4); TROPONIN I < 0.02 NG/ML (< 0.10)
[2018-04-18] MEDS: ALPRAZolam 0.5 MG TAB PO ×2 (15:26→21:34)
[2018-04-18] MEDS: ACETAMINOPHEN TAB 650MG DOSE (2X325MG) PO (16:22)
[2018-04-18 17:02] LABS: BEDSIDE GLUCOSE 241 MG/DL (80-115)
[2018-04-18] MEDS: cefTRIAXone SOD 1 GM in D5W MINI-BAG PLUS 50 ML IV (20:06)
[2018-04-18 20:34] LABS: BEDSIDE GLUCOSE 274 MG/DL (80-115)
[2018-04-18 21:04] LABS: CK-MB VALUE MASS < 1.0 NG/ML (<3.6); CPK CREATINE PHOSPHOKINASE 47 U/L (26-192); MB/CK RELATIVE INDEX 2.12 (< OR =4); TROPONIN I < 0.02 NG/ML (< 0.10)
[2018-04-19] MEDS: ANEXSIA, NORCO 7.5MG/325MG TABLET(HYDROCODONE/APAP) PO ×4 (02:18→20:38)
[2018-04-19 04:08] LABS: BASO % 0.4 % (0.0-1.0); EOS # 0.2 10^3/uL (0.0-0.50); EOS % 2.1 % (0.0-3.0); HEMATOCRIT 30.4 % (36.0-47.0); HEMOGLOBIN 9.7 g/dl (12.0-15.5); IMMATURE GRANULOCYTE % 0.7 % (0-3.0); LYMPH # 1.4 10^3/uL (1.5-4.5); LYMPH % 15.1 % (24.0-44.0); MEAN CORPUSCULAR HEMOGLOBIN 30.8 pg (27.0-33.0); MEAN CORPUSCULAR HGB CONC 31.9 g/dl (32.0-36.5); MEAN CORPUSCULAR VOLUME 96.5 fl (80.0-96.0); MONO # 1.8 10^3/uL (0.0-0.8); MONO % 19.9 % (0.0-5.0); NEUTROPHILS # 5.7 10^3/uL (1.8-7.7); NEUTROPHILS % 61.8 % (36.0-66.0); PLATELET COUNT, AUTOMATED 318 10^3/uL (150-450); RED BLOOD COUNT 3.15 10^6/uL (4.00-5.40); RED CELL DISTRIBUTION WIDTH 13.8 % (11.5-14.5); WHITE BLOOD COUNT 9.2 10^3/uL (4.0-10.0)
[2018-04-19] MEDS: ALPRAZolam 0.5 MG TAB PO ×4 (04:13→23:03)
[2018-04-19 04:26] LABS: ALBUMIN 2.6 GM/DL (3.2-5.2); ALBUMIN/GLOBULIN RATIO 0.74 (1.00-1.93); ALKALINE PHOSPHATASE 54 U/L (45-117); ALT/SGPT 12 U/L (12-78); ANION GAP 6 MEQ/L (8-16); AST/SGOT 8 U/L (7-37); BILIRUBIN,TOTAL 0.2 MG/DL (0.2-1.0); BLOOD UREA NITROGEN 19 MG/DL (7-18); CALCIUM LEVEL 8.7 MG/DL (8.8-10.2); CARBON DIOXIDE LEVEL 35 MEQ/L (21-32); CHLORIDE LEVEL 100 MEQ/L (98-107); CREATININE FOR GFR 0.61 MG/DL (0.55-1.30); GLOMERULAR FILTRATION RATE > 60.0 (>45); GLUCOSE, FASTING 199 MG/DL (70-100); POTASSIUM SERUM 3.8 MEQ/L (3.5-5.1); SODIUM LEVEL 141 MEQ/L (136-145); TOTAL PROTEIN 6.1 GM/DL (6.4-8.2)
[2018-04-19] MEDS: ENOXAPARIN 30 MG/0.3 ML SYR (J1650) SC (07:47)
[2018-04-19] MEDS: GABAPENTIN 100 MG CAP PO ×3 (07:47→20:38)
[2018-04-19] MEDS: NICOTINE 21MG/24HR 1 EA TRANSDERMAL TD (07:48)
[2018-04-19] MEDS: HumaLOG INSULIN (NovoLOG) PER UNIT SC ×4 (07:48→20:37)
[2018-04-19] MEDS: IPRATROPIUM 0.5MG/ALBUTEROL 2.5MG INH SOL UD 3ML (DUONEB)(J7620) NEB ×4 (08:00→21:05)
[2018-04-19] MEDS: FUROSEMIDE 20 MG TAB PO ×2 (10:06→20:38)
[2018-04-19] MEDS: ACETAMINOPHEN TAB 650MG DOSE (2X325MG) PO ×3 (10:09→23:04)
[2018-04-19 11:15] LABS: BEDSIDE GLUCOSE 253 MG/DL (80-115)
[2018-04-19 16:39] LABS: BEDSIDE GLUCOSE 280 MG/DL (80-115)
[2018-04-19 20:03] LABS: BEDSIDE GLUCOSE 327 MG/DL (80-115)
[2018-04-19] MEDS: cefTRIAXone SOD 1 GM in D5W MINI-BAG PLUS 50 ML IV (20:39)
[2018-04-20] MEDS: ANEXSIA, NORCO 7.5MG/325MG TABLET(HYDROCODONE/APAP) PO ×3 (04:14→19:35)
[2018-04-20 05:53] LABS: BASO % 0.6 % (0.0-1.0); EOS # 0.5 10^3/uL (0.0-0.50); EOS % 6.3 % (0.0-3.0); HEMATOCRIT 30.5 % (36.0-47.0); HEMOGLOBIN 9.6 g/dl (12.0-15.5); LYMPH # 1.7 10^3/uL (1.5-4.5); LYMPH % 23.4 % (24.0-44.0); MEAN CORPUSCULAR HGB CONC 31.5 g/dl (32.0-36.5); MEAN CORPUSCULAR VOLUME 98.4 fl (80.0-96.0); MONO # 1.1 10^3/uL (0.0-0.8); MONO % 14.9 % (0.0-5.0); NEUTROPHILS # 3.9 10^3/uL (1.8-7.7); NEUTROPHILS % 53.8 % (36.0-66.0); PLATELET COUNT, AUTOMATED 333 10^3/uL (150-450); RED CELL DISTRIBUTION WIDTH 13.8 % (11.5-14.5); WHITE BLOOD COUNT 7.3 10^3/uL (4.0-10.0)
[2018-04-20 06:19] LABS: ALBUMIN 2.4 GM/DL (3.2-5.2); ALBUMIN/GLOBULIN RATIO 0.62 (1.00-1.93); ALKALINE PHOSPHATASE 64 U/L (45-117); ALT/SGPT 13 U/L (12-78); ANION GAP 7 MEQ/L (8-16); AST/SGOT 8 U/L (7-37); BILIRUBIN,TOTAL 0.2 MG/DL (0.2-1.0); BLOOD UREA NITROGEN 10 MG/DL (7-18); CALCIUM LEVEL 8.6 MG/DL (8.8-10.2); CARBON DIOXIDE LEVEL 38 MEQ/L (21-32); CHLORIDE LEVEL 98 MEQ/L (98-107); CREATININE FOR GFR 0.62 MG/DL (0.55-1.30); GLOMERULAR FILTRATION RATE > 60.0 (>45); GLUCOSE, FASTING 224 MG/DL (70-100); POTASSIUM SERUM 3.3 MEQ/L (3.5-5.1); SODIUM LEVEL 143 MEQ/L (136-145); TOTAL PROTEIN 6.3 GM/DL (6.4-8.2)
[2018-04-20] MEDS: IPRATROPIUM 0.5MG/ALBUTEROL 2.5MG INH SOL UD 3ML (DUONEB)(J7620) NEB ×4 (07:59→19:45)
[2018-04-20] MEDS: ACETAMINOPHEN TAB 650MG DOSE (2X325MG) PO ×3 (08:09→21:43)
[2018-04-20] MEDS: HumaLOG INSULIN (NovoLOG) PER UNIT SC ×4 (08:11→21:42)
[2018-04-20] MEDS: GABAPENTIN 100 MG CAP PO ×3 (08:12→21:42)
[2018-04-20] MEDS: ENOXAPARIN 30 MG/0.3 ML SYR (J1650) SC (08:12)
[2018-04-20] MEDS: NICOTINE 21MG/24HR 1 EA TRANSDERMAL TD (08:13)
[2018-04-20] MEDS: ALPRAZolam 0.5 MG TAB PO ×3 (08:25→22:54)
[2018-04-20] MEDS: FUROSEMIDE 20 MG TAB PO (08:25)
[2018-04-20] MEDS: FLUCONAZOLE 100 MG TAB PO (09:48)
[2018-04-20] MEDS: FUROSEMIDE 40 MG TAB PO (09:49)
[2018-04-20 10:41] LABS: ERYTHROCYTE SEDIMENTATION RATE 77 mm/hr (0-30)
[2018-04-20 10:51] LABS: URIC ACID 8.7 MG/DL (2.6-6.0)
[2018-04-20 11:38] LABS: BEDSIDE GLUCOSE 226 MG/DL (80-115)
[2018-04-20] MEDS: POTASSIUM CHLORIDE 10 MEQ SR TABLET PO (11:59)
[2018-04-20] MEDS: COLCHICINE 0.6 MG TAB PO ×2 (14:17→21:42)
[2018-04-20 17:13] LABS: BEDSIDE GLUCOSE 528 MG/DL (80-115)
[2018-04-20 17:22] LABS: BEDSIDE GLUCOSE 322 MG/DL (80-115)
[2018-04-20 17:25] LABS: BEDSIDE GLUCOSE 324 MG/DL (80-115)
[2018-04-20 20:57] LABS: BEDSIDE GLUCOSE 310 MG/DL (80-115)
[2018-04-20] MEDS: cefTRIAXone SOD 1 GM in D5W MINI-BAG PLUS 50 ML IV (21:41)
[2018-04-21] MEDS: ANEXSIA, NORCO 7.5MG/325MG TABLET(HYDROCODONE/APAP) PO ×2 (03:12→10:23)
[2018-04-21] MEDS: ACETAMINOPHEN TAB 650MG DOSE (2X325MG) PO (04:44)
[2018-04-21 06:32] LABS: BASO # 0.1 10^3/uL (0.0-0.2); BASO % 0.8 % (0.0-1.0); EOS # 0.4 10^3/uL (0.0-0.50); EOS % 5.6 % (0.0-3.0); HEMATOCRIT 30.8 % (36.0-47.0); HEMOGLOBIN 9.7 g/dl (12.0-15.5); IMMATURE GRANULOCYTE % 1.1 % (0-3.0); LYMPH % 26.3 % (24.0-44.0); MEAN CORPUSCULAR HEMOGLOBIN 31.5 pg (27.0-33.0); MEAN CORPUSCULAR HGB CONC 31.5 g/dl (32.0-36.5); MONO # 1.1 10^3/uL (0.0-0.8); MONO % 14.7 % (0.0-5.0); NEUTROPHILS # 3.9 10^3/uL (1.8-7.7); NEUTROPHILS % 51.5 % (36.0-66.0); PLATELET COUNT, AUTOMATED 363 10^3/uL (150-450); RED BLOOD COUNT 3.08 10^6/uL (4.00-5.40); WHITE BLOOD COUNT 7.5 10^3/uL (4.0-10.0)
[2018-04-21 06:55] LABS: ALBUMIN 2.5 GM/DL (3.2-5.2); ALBUMIN/GLOBULIN RATIO 0.66 (1.00-1.93); ALKALINE PHOSPHATASE 57 U/L (45-117); ALT/SGPT 13 U/L (12-78); ANION GAP 6 MEQ/L (8-16); AST/SGOT 8 U/L (7-37); BILIRUBIN,TOTAL 0.2 MG/DL (0.2-1.0); BLOOD UREA NITROGEN 10 MG/DL (7-18); CALCIUM LEVEL 8.8 MG/DL (8.8-10.2); CARBON DIOXIDE LEVEL 40 MEQ/L (21-32); CHLORIDE LEVEL 95 MEQ/L (98-107); CREATININE FOR GFR 0.57 MG/DL (0.55-1.30); GLOMERULAR FILTRATION RATE > 60.0 (>45); GLUCOSE, FASTING 184 MG/DL (70-100); SODIUM LEVEL 141 MEQ/L (136-145); TOTAL PROTEIN 6.3 GM/DL (6.4-8.2)
[2018-04-21] MEDS: IPRATROPIUM 0.5MG/ALBUTEROL 2.5MG INH SOL UD 3ML (DUONEB)(J7620) NEB ×2 (07:13→10:21)
[2018-04-21] MEDS: FLUCONAZOLE 100 MG TAB PO (08:27)
[2018-04-21] MEDS: NICOTINE 21MG/24HR 1 EA TRANSDERMAL TD (08:27)
[2018-04-21] MEDS: FUROSEMIDE 40 MG TAB PO (08:27)
[2018-04-21] MEDS: COLCHICINE 0.6 MG TAB PO (08:27)
[2018-04-21] MEDS: ENOXAPARIN 30 MG/0.3 ML SYR (J1650) SC (08:27)
[2018-04-21] MEDS: GABAPENTIN 100 MG CAP PO (08:27)
[2018-04-21] MEDS: HumaLOG INSULIN (NovoLOG) PER UNIT SC ×2 (08:28→12:10)
[2018-04-21] MEDS ORDERED: SENOKOT S TAB PO (08:30)
[2018-04-21] MEDS: ALPRAZolam 0.5 MG TAB PO (08:37)
[2018-04-21] MEDS: DOCUSATE SODIUM 100 MG CAP PO (08:37)
[2018-04-21 11:47] LABS: BEDSIDE GLUCOSE 236 MG/DL (80-115)
== END 2018-04-21 14:31 | disposition home or self-care (01) | DRG 460 ==
LOC: M MSPAV 04-19 14:11 → M ED 15:04 → M ED INP 20:36 → M PCU 22:30
DX: N17.9 Acute kidney failure, unspecified (principal); G93.41 Metabolic encephalopathy; I95.9 Hypotension, unspecified; I50.32 Chronic diastolic (congestive) heart failure; N39.0 Urinary tract infection, site not specified; N20.0 Calculus of kidney; J44.9 Chronic obstructive pulmonary disease, unspecified; F41.9 Anxiety disorder, unspecified; E86.0 Dehydration; M10.9 Gout, unspecified; K57.30 Diverticulosis of large intestine without perforation or abscess without bleeding; Z79.899 Other long term (current) drug therapy; F32.9 Major depressive disorder, single episode, unspecified; Z79.82 Long term (current) use of aspirin

== ENCOUNTER 2018-06-02 13:57 | Outpatient (CLI) | payer OTHER | END 2018-06-06 | LOC: M SLEEP HO 13:57 | DX: G47.30 Sleep apnea, unspecified (principal) | CPT/HCPCS: G0399 ==

== ENCOUNTER → 2018-06-27 | Outpatient (CLI) | payer OTHER ==
[2018-06-27 10:03] LABS: THYROID STIMULATING HORMONE 0.342 uIU/ML (0.358-3.740)
[2018-06-27 10:16] LABS: ESTIMATED AVERAGE GLUCOSE 160 MG/DL (60-110); HEMOGLOBIN A1c 7.2 %
== END ==
LOC: M LAB 08:35
DX: E07.9 Disorder of thyroid, unspecified (principal); E11.9 Type 2 diabetes mellitus without complications
CPT/HCPCS: 84443

== ENCOUNTER 2018-07-29 13:00 | Inpatient (IN) | payer OTHER ==
[2018-07-29] MEDS: IPRATROPIUM 0.5MG/ALBUTEROL 2.5MG INH SOL UD 3ML (DUONEB)(J7620) NEB ×3 (13:27→19:40)
[2018-07-29] MEDS: NS 500 ML IV (13:32)
[2018-07-29] MEDS: KETOROLAC 30 MG/ML VIAL (J1885) IV (13:32)
[2018-07-29] MEDS: dexameTHASONE 20 MG/5 ML VIAL (J1100) IV (13:32)
[2018-07-29 13:34] LABS: BASO # 0.1 10^3/uL (0.0-0.2); BASO % 0.6 % (0.0-1.0); EOS # 0.3 10^3/uL (0.0-0.50); EOS % 1.6 % (0.0-3.0); HEMATOCRIT 46.1 % (36.0-47.0); HEMOGLOBIN 14.3 g/dl (12.0-15.5); IMMATURE GRANULOCYTE % 0.7 % (0-3.0); LYMPH # 3.6 10^3/uL (1.5-4.5); LYMPH % 22.6 % (24.0-44.0); MEAN CORPUSCULAR HEMOGLOBIN 29.7 pg (27.0-33.0); MEAN CORPUSCULAR VOLUME 95.6 fl (80.0-96.0); MONO # 1.7 10^3/uL (0.0-0.8); MONO % 10.9 % (0.0-5.0); NEUTROPHILS # 10.1 10^3/uL (1.8-7.7); NEUTROPHILS % 63.6 % (36.0-66.0); PLATELET COUNT, AUTOMATED 390 10^3/uL (150-450); RED BLOOD COUNT 4.82 10^6/uL (4.00-5.40); RED CELL DISTRIBUTION WIDTH 13.4 % (11.5-14.5); WHITE BLOOD COUNT 15.8 10^3/uL (4.0-10.0)
[2018-07-29 14:13] LABS: ANION GAP 6 MEQ/L (8-16); BLOOD UREA NITROGEN 21 MG/DL (7-18); CALCIUM LEVEL 8.2 MG/DL (8.8-10.2); CARBON DIOXIDE LEVEL 41 MEQ/L (21-32); CHLORIDE LEVEL 93 MEQ/L (98-107); CPK CREATINE PHOSPHOKINASE 47 U/L (26-192); CREATININE FOR GFR 0.76 MG/DL (0.55-1.30); GLOMERULAR FILTRATION RATE > 60.0 (>45); GLUCOSE, FASTING 213 MG/DL (70-100); MB/CK RELATIVE INDEX 8.94 (< OR =4); NT-PRO BNP 200 PG/ML (<125); POTASSIUM SERUM 4.1 MEQ/L (3.5-5.1); SODIUM LEVEL 140 MEQ/L (136-145); TROPONIN I < 0.02 NG/ML (< 0.10)
[2018-07-29 14:35] LABS: ABG BASE EXCESS 10.5 (-2.0-2.0); ABG O2 SATURATION 88.1 % (95.0-99.0); ABG PARTIAL PRESSURE O2 56.1 mmHg (75.0-100.0); ABG TOTAL CO2 43.7 MEQ/L (23.0-31.0); ABG pH (ARTERIAL) 7.288 UNITS (7.350-7.450)
[2018-07-29 14:39] LABS: ABG PARTIAL PRESSURE CO2 87.7 mmHg (35.0-45.0)
[2018-07-29] MEDS ORDERED: GLUCOSE 4 GM CHEW TABLET PO (15:45)
[2018-07-29] MEDS ORDERED: GLUCAGON FOR INJ 1 MG VIAL (J1610) SC (15:45)
[2018-07-29] MEDS ORDERED: ALPRAZolam 0.5 MG TAB PO (15:45)
[2018-07-29] MEDS ORDERED: DEXTROSE 50% 50 ML SYRINGE IV (15:45)
[2018-07-29] MEDS ORDERED: cefTRIAXone SOD 1 GM in D5W MINI-BAG PLUS 50 ML IV (16:00)
[2018-07-29] MEDS ORDERED: ANEXSIA, NORCO 7.5MG/325MG TABLET(HYDROCODONE/APAP) PO (16:00)
[2018-07-29] MEDS ORDERED: IPRATROPIUM 0.5MG/ALBUTEROL 2.5MG INH SOL UD 3ML (DUONEB)(J7620) NEB ×2 (16:15→20:00)
[2018-07-29] MEDS: GABAPENTIN 300 MG CAP PO ×2 (16:35→20:00)
[2018-07-29 17:20] LABS: BEDSIDE GLUCOSE 222 MG/DL (80-115)
[2018-07-29] MEDS: HumaLOG INSULIN (NovoLOG) PER UNIT SC ×2 (17:21→23:11)
[2018-07-29] MEDS ORDERED: HumaLOG INSULIN (NovoLOG) PER UNIT SC ×2 (17:30→21:00)
[2018-07-29] MEDS: methylPREDNISolone INJ 125 MG/2 ML VIAL (J2930) IV (18:07)
[2018-07-29 18:17] LABS: KETONE, URINE AUTO RFX NEGATIVE (NEGATIVE); MUCUS, URINE RFX SMALL (NEGATIVE); NITRITE, URINE AUTO RFX NEGATIVE (NEGATIVE); RBC, URINE AUTO RFX 44 /HPF (0-3); SQUAM EPITHELIAL CELL UR AURFX 1 /HPF (0-6); YEAST LIKE CELL URINE AUTO RFX LARGE
[2018-07-29 18:18] LABS: LEUKOCYTE ESTERASE UR AUTO RFX 3+ (NEGATIVE); WBC, URINE AUTO RFX 112 /HPF (0-3)
[2018-07-29 18:33] LABS: ABG BASE EXCESS 9.6 (-2.0-2.0); ABG HCO3 40.4 MEQ/L (22.0-26.0); ABG PARTIAL PRESSURE O2 71.2 mmHg (75.0-100.0); ABG STANDARD HCO3 33.3 MEQ/L (22.0-26.0); ABG TOTAL CO2 43.2 MEQ/L (23.0-31.0); ABG pH (ARTERIAL) 7.271 UNITS (7.350-7.450)
[2018-07-29 18:36] LABS: ABG PARTIAL PRESSURE CO2 89.9 mmHg (35.0-45.0)
[2018-07-29] MEDS: SENOKOT S TAB PO (20:11)
[2018-07-29] MEDS: CEFDINIR 300 MG CAP (OMNICEF) PO (20:11)
[2018-07-29] MEDS ORDERED: FUROSEMIDE 40 MG TAB PO (21:00)
[2018-07-29] MEDS: LEVEMIR (INSULIN DETEMIR) 1 UNITS/0.01ML SC (21:03)
[2018-07-29 21:28] LABS: ABG BASE EXCESS 8.3 (-2.0-2.0); ABG HCO3 38.7 MEQ/L (22.0-26.0); ABG O2 SATURATION 95.3 % (95.0-99.0); ABG PARTIAL PRESSURE O2 77.9 mmHg (75.0-100.0); ABG STANDARD HCO3 32.1 MEQ/L (22.0-26.0); ABG TOTAL CO2 41.3 MEQ/L (23.0-31.0)
[2018-07-29 21:30] LABS: ABG PARTIAL PRESSURE CO2 84.2 mmHg (35.0-45.0)
[2018-07-29 23:11] LABS: BEDSIDE GLUCOSE 210 MG/DL (80-115)
[2018-07-29 23:42] LABS: ABG BASE EXCESS 5.6 (-2.0-2.0); ABG HCO3 35.1 MEQ/L (22.0-26.0); ABG O2 SATURATION 96.8 % (95.0-99.0); ABG PARTIAL PRESSURE CO2 75.7 mmHg (35.0-45.0); ABG PARTIAL PRESSURE O2 88.9 mmHg (75.0-100.0); ABG STANDARD HCO3 29.5 MEQ/L (22.0-26.0); ABG TOTAL CO2 37.4 MEQ/L (23.0-31.0); ABG pH (ARTERIAL) 7.284 UNITS (7.350-7.450)
[2018-07-30] MEDS: MOXIFLOXACIN HCL 400 MG in APPROPRIATE DILUENT 1 EA IV ×2 (00:04→23:47)
[2018-07-30] MEDS: methylPREDNISolone INJ 125 MG/2 ML VIAL (J2930) IV ×5 (00:04→23:47)
[2018-07-30 05:03] LABS: BASO % 0.1 % (0.0-1.0); HEMOGLOBIN 13.3 g/dl (12.0-15.5); LYMPH # 0.7 10^3/uL (1.5-4.5); LYMPH % 5.3 % (24.0-44.0); MEAN CORPUSCULAR HEMOGLOBIN 29.6 pg (27.0-33.0); MEAN CORPUSCULAR HGB CONC 30.9 g/dl (32.0-36.5); MEAN CORPUSCULAR VOLUME 95.6 fl (80.0-96.0); MONO # 0.3 10^3/uL (0.0-0.8); MONO % 2.2 % (0.0-5.0); NEUTROPHILS # 12.3 10^3/uL (1.8-7.7); NEUTROPHILS % 91.4 % (36.0-66.0); PLATELET COUNT, AUTOMATED 371 10^3/uL (150-450); RED CELL DISTRIBUTION WIDTH 13.2 % (11.5-14.5); WHITE BLOOD COUNT 13.5 10^3/uL (4.0-10.0)
[2018-07-30 05:29] LABS: ANION GAP 3 MEQ/L (8-16); BLOOD UREA NITROGEN 25 MG/DL (7-18); CALCIUM LEVEL 8.2 MG/DL (8.8-10.2); CARBON DIOXIDE LEVEL 40 MEQ/L (21-32); CHLORIDE LEVEL 98 MEQ/L (98-107); CREATININE FOR GFR 0.58 MG/DL (0.55-1.30); GLOMERULAR FILTRATION RATE > 60.0 (>45); GLUCOSE, FASTING 157 MG/DL (70-100); POTASSIUM SERUM 4.8 MEQ/L (3.5-5.1); SODIUM LEVEL 141 MEQ/L (136-145)
[2018-07-30 05:42] LABS: ABG BASE EXCESS 8.4 (-2.0-2.0); ABG O2 SATURATION 96.2 % (95.0-99.0); ABG PARTIAL PRESSURE CO2 71.4 mmHg (35.0-45.0); ABG PARTIAL PRESSURE O2 84.3 mmHg (75.0-100.0); ABG STANDARD HCO3 32.1 MEQ/L (22.0-26.0); ABG TOTAL CO2 39.2 MEQ/L (23.0-31.0); ABG pH (ARTERIAL) 7.332 UNITS (7.350-7.450)
[2018-07-30] MEDS: HumaLOG INSULIN (NovoLOG) PER UNIT SC ×4 (06:14→20:08)
[2018-07-30] MEDS: IPRATROPIUM 0.5MG/ALBUTEROL 2.5MG INH SOL UD 3ML (DUONEB)(J7620) NEB ×4 (07:42→19:41)
[2018-07-30] MEDS: SENOKOT S TAB PO ×2 (09:00→20:03)
[2018-07-30] MEDS ORDERED: POTASSIUM CHLORIDE 10 MEQ SR TABLET PO (09:00)
[2018-07-30] MEDS: NICOTINE 21MG/24HR 1 EA TRANSDERMAL TD (09:00)
[2018-07-30] MEDS: ENOXAPARIN 40 MG/0.4 ML SYRINGE (J1650) SC (09:10)
[2018-07-30] MEDS: GABAPENTIN 300 MG CAP PO ×4 (09:10→20:03)
[2018-07-30] MEDS: LEVEMIR (INSULIN DETEMIR) 1 UNITS/0.01ML SC ×2 (09:10→20:04)
[2018-07-30] MEDS: ACETAMINOPHEN TAB 650MG DOSE (2X325MG) PO ×3 (11:47→20:08)
[2018-07-30 11:52] LABS: BEDSIDE GLUCOSE 161 MG/DL (80-115)
[2018-07-30] MEDS: TIOTROPIUM INHALER/CAPSULE (SPIRIVA) INH (15:37)
[2018-07-30 16:50] LABS: BEDSIDE GLUCOSE 225 MG/DL (80-115)
[2018-07-30] MEDS ORDERED: FLUBLOK(EGG FREE)(QUAD)INFLUENZA VACC 0.5ML SYRINGE (90682)18YRS&OLDER IM (19:15)
[2018-07-30 20:06] LABS: BEDSIDE GLUCOSE 302 MG/DL (80-115)
[2018-07-31 05:07] LABS: BASO % 0.1 % (0.0-1.0); EOS % 0.3 % (0.0-3.0); HEMATOCRIT 40.2 % (36.0-47.0); HEMOGLOBIN 12.3 g/dl (12.0-15.5); IMMATURE GRANULOCYTE % 0.7 % (0-3.0); LYMPH # 0.6 10^3/uL (1.5-4.5); LYMPH % 4.5 % (24.0-44.0); MEAN CORPUSCULAR HGB CONC 30.6 g/dl (32.0-36.5); MEAN CORPUSCULAR VOLUME 94.8 fl (80.0-96.0); MONO # 0.7 10^3/uL (0.0-0.8); MONO % 5.2 % (0.0-5.0); NEUTROPHILS # 11.4 10^3/uL (1.8-7.7); NEUTROPHILS % 89.2 % (36.0-66.0); PLATELET COUNT, AUTOMATED 346 10^3/uL (150-450); RED BLOOD COUNT 4.24 10^6/uL (4.00-5.40); RED CELL DISTRIBUTION WIDTH 13.4 % (11.5-14.5); WHITE BLOOD COUNT 12.8 10^3/uL (4.0-10.0)
[2018-07-31 05:22] LABS: ANION GAP 4 MEQ/L (8-16); BLOOD UREA NITROGEN 25 MG/DL (7-18); CALCIUM LEVEL 8.5 MG/DL (8.8-10.2); CARBON DIOXIDE LEVEL 37 MEQ/L (21-32); CHLORIDE LEVEL 101 MEQ/L (98-107); CREATININE FOR GFR 0.56 MG/DL (0.55-1.30); GLOMERULAR FILTRATION RATE > 60.0 (>45); GLUCOSE, FASTING 195 MG/DL (70-100); POTASSIUM SERUM 4.5 MEQ/L (3.5-5.1); SODIUM LEVEL 142 MEQ/L (136-145)
[2018-07-31] MEDS: TIOTROPIUM INHALER/CAPSULE (SPIRIVA) INH (07:52)
[2018-07-31] MEDS: IPRATROPIUM 0.5MG/ALBUTEROL 2.5MG INH SOL UD 3ML (DUONEB)(J7620) NEB ×4 (07:52→19:54)
[2018-07-31] MEDS: LEVEMIR (INSULIN DETEMIR) 1 UNITS/0.01ML SC ×2 (08:06→20:21)
[2018-07-31] MEDS: GABAPENTIN 300 MG CAP PO ×4 (08:06→20:20)
[2018-07-31] MEDS: HumaLOG INSULIN (NovoLOG) PER UNIT SC ×4 (08:06→20:21)
[2018-07-31] MEDS: SENOKOT S TAB PO ×2 (08:06→20:20)
[2018-07-31] MEDS: ENOXAPARIN 40 MG/0.4 ML SYRINGE (J1650) SC (08:07)
[2018-07-31] MEDS: NICOTINE 21MG/24HR 1 EA TRANSDERMAL TD (08:07)
[2018-07-31] MEDS: methylPREDNISolone INJ 40 MG/1 ML VIAL (J2920) IV ×2 (08:16→17:32)
[2018-07-31 11:48] LABS: BEDSIDE GLUCOSE 228 MG/DL (80-115)
[2018-07-31] MEDS: ALPRAZolam 0.5 MG TAB PO (12:54)
[2018-07-31 16:14] LABS: BEDSIDE GLUCOSE 240 MG/DL (80-115)
[2018-07-31] MEDS: MOXIFLOXACIN 400 MG TAB PO (17:32)
[2018-07-31] MEDS: FLUCONAZOLE 50MG TABLET PO (17:37)
[2018-07-31 20:18] LABS: BEDSIDE GLUCOSE 237 MG/DL (80-115)
[2018-07-31] MEDS: guaiFENesin ER 600 MG TAB PO (20:20)
[2018-07-31] MEDS: RAMELTEON 8 MG TAB (ROZEREM) PO (20:20)
[2018-08-01] MEDS: methylPREDNISolone INJ 40 MG/1 ML VIAL (J2920) IV ×3 (00:03→16:28)
[2018-08-01 06:31] LABS: BASO % 0.1 % (0.0-1.0); HEMATOCRIT 39.4 % (36.0-47.0); HEMOGLOBIN 12.2 g/dl (12.0-15.5); IMMATURE GRANULOCYTE % 0.8 % (0-3.0); LYMPH # 0.4 10^3/uL (1.5-4.5); LYMPH % 4.5 % (24.0-44.0); MEAN CORPUSCULAR HEMOGLOBIN 29.2 pg (27.0-33.0); MEAN CORPUSCULAR VOLUME 94.3 fl (80.0-96.0); MONO # 0.7 10^3/uL (0.0-0.8); MONO % 6.6 % (0.0-5.0); NEUTROPHILS # 8.7 10^3/uL (1.8-7.7); PLATELET COUNT, AUTOMATED 318 10^3/uL (150-450); RED BLOOD COUNT 4.18 10^6/uL (4.00-5.40); RED CELL DISTRIBUTION WIDTH 13.5 % (11.5-14.5); WHITE BLOOD COUNT 9.8 10^3/uL (4.0-10.0)
[2018-08-01 07:01] LABS: ANION GAP 5 MEQ/L (8-16); BLOOD UREA NITROGEN 29 MG/DL (7-18); CALCIUM LEVEL 8.5 MG/DL (8.8-10.2); CARBON DIOXIDE LEVEL 36 MEQ/L (21-32); CHLORIDE LEVEL 103 MEQ/L (98-107); CREATININE FOR GFR 0.58 MG/DL (0.55-1.30); GLOMERULAR FILTRATION RATE > 60.0 (>45); GLUCOSE, FASTING 193 MG/DL (70-100); POTASSIUM SERUM 4.2 MEQ/L (3.5-5.1); SODIUM LEVEL 144 MEQ/L (136-145)
[2018-08-01] MEDS: IPRATROPIUM 0.5MG/ALBUTEROL 2.5MG INH SOL UD 3ML (DUONEB)(J7620) NEB ×4 (07:06→19:55)
[2018-08-01] MEDS: HumaLOG INSULIN (NovoLOG) PER UNIT SC ×4 (08:08→21:23)
[2018-08-01] MEDS: LEVEMIR (INSULIN DETEMIR) 1 UNITS/0.01ML SC ×2 (08:08→21:23)
[2018-08-01] MEDS: NICOTINE 21MG/24HR 1 EA TRANSDERMAL TD (08:08)
[2018-08-01] MEDS: ENOXAPARIN 40 MG/0.4 ML SYRINGE (J1650) SC (08:08)
[2018-08-01] MEDS: FLUBLOK(EGG FREE)(QUAD)INFLUENZA VACC 0.5ML SYRINGE (90682)18YRS&OLDER IM (08:10)
[2018-08-01] MEDS: guaiFENesin ER 600 MG TAB PO ×2 (08:10→21:24)
[2018-08-01] MEDS: GABAPENTIN 300 MG CAP PO ×4 (08:10→21:23)
[2018-08-01] MEDS: SENOKOT S TAB PO ×2 (08:10→21:23)
[2018-08-01] MEDS: ALPRAZolam 0.5 MG TAB PO (08:10)
[2018-08-01 11:31] LABS: BEDSIDE GLUCOSE 160 MG/DL (80-115)
[2018-08-01] MEDS: POTASSIUM CHLORIDE 10 MEQ SR TABLET PO (16:28)
[2018-08-01] MEDS: FUROSEMIDE 40 MG TAB PO (16:28)
[2018-08-01 16:48] LABS: BEDSIDE GLUCOSE 272 MG/DL (80-115)
[2018-08-01] MEDS: MOXIFLOXACIN 400 MG TAB PO (17:39)
[2018-08-01 20:22] LABS: BEDSIDE GLUCOSE 297 MG/DL (80-115)
[2018-08-01] MEDS: COLCHICINE 0.6 MG TAB PO (21:24)
[2018-08-01] MEDS: RAMELTEON 8 MG TAB (ROZEREM) PO (21:24)
[2018-08-02] MEDS: methylPREDNISolone INJ 40 MG/1 ML VIAL (J2920) IV ×3 (00:50→17:22)
[2018-08-02] MEDS: ACETAMINOPHEN TAB 650MG DOSE (2X325MG) PO (00:56)
[2018-08-02] MEDS: MORPHINE 4 MG/ML 1ML VIAL/SYRINGE (J2270) IV (02:43)
[2018-08-02 06:25] LABS: BASO % 0.1 % (0.0-1.0); EOS # 0.1 10^3/uL (0.0-0.50); EOS % 0.9 % (0.0-3.0); HEMATOCRIT 38.4 % (36.0-47.0); HEMOGLOBIN 12.1 g/dl (12.0-15.5); IMMATURE GRANULOCYTE % 1.1 % (0-3.0); LYMPH # 0.4 10^3/uL (1.5-4.5); LYMPH % 4.4 % (24.0-44.0); MEAN CORPUSCULAR HEMOGLOBIN 29.5 pg (27.0-33.0); MEAN CORPUSCULAR HGB CONC 31.5 g/dl (32.0-36.5); MEAN CORPUSCULAR VOLUME 93.7 fl (80.0-96.0); MONO # 0.7 10^3/uL (0.0-0.8); MONO % 7.7 % (0.0-5.0); NEUTROPHILS # 8.2 10^3/uL (1.8-7.7); NEUTROPHILS % 85.8 % (36.0-66.0); PLATELET COUNT, AUTOMATED 318 10^3/uL (150-450); RED CELL DISTRIBUTION WIDTH 13.5 % (11.5-14.5); WHITE BLOOD COUNT 9.5 10^3/uL (4.0-10.0)
[2018-08-02 06:44] LABS: ANION GAP 4 MEQ/L (8-16); BLOOD UREA NITROGEN 26 MG/DL (7-18); CALCIUM LEVEL 8.2 MG/DL (8.8-10.2); CARBON DIOXIDE LEVEL 36 MEQ/L (21-32); CHLORIDE LEVEL 103 MEQ/L (98-107); GLOMERULAR FILTRATION RATE > 60.0 (>45); GLUCOSE, FASTING 174 MG/DL (70-100); POTASSIUM SERUM 4.4 MEQ/L (3.5-5.1); SODIUM LEVEL 143 MEQ/L (136-145)
[2018-08-02] MEDS: IPRATROPIUM 0.5MG/ALBUTEROL 2.5MG INH SOL UD 3ML (DUONEB)(J7620) NEB ×4 (07:30→19:45)
[2018-08-02] MEDS: HumaLOG INSULIN (NovoLOG) PER UNIT SC ×4 (07:58→20:22)
[2018-08-02] MEDS: LEVEMIR (INSULIN DETEMIR) 1 UNITS/0.01ML SC ×2 (07:58→20:23)
[2018-08-02] MEDS: GABAPENTIN 300 MG CAP PO ×4 (07:59→20:22)
[2018-08-02] MEDS: SENOKOT S TAB PO ×2 (07:59→20:22)
[2018-08-02] MEDS: ENOXAPARIN 40 MG/0.4 ML SYRINGE (J1650) SC (07:59)
[2018-08-02] MEDS: NICOTINE 21MG/24HR 1 EA TRANSDERMAL TD (07:59)
[2018-08-02] MEDS: COLCHICINE 0.6 MG TAB PO (07:59)
[2018-08-02] MEDS: FUROSEMIDE 40 MG TAB PO ×2 (07:59→17:22)
[2018-08-02] MEDS: ALPRAZolam 0.5 MG TAB PO (07:59)
[2018-08-02] MEDS: guaiFENesin ER 600 MG TAB PO ×2 (08:00→20:22)
[2018-08-02] MEDS: POTASSIUM CHLORIDE 10 MEQ SR TABLET PO (08:00)
[2018-08-02 11:36] LABS: BEDSIDE GLUCOSE 244 MG/DL (80-115)
[2018-08-02] MEDS: PERCOCET 5MG/325MG TAB PO ×2 (12:10→20:24)
[2018-08-02 16:35] LABS: BEDSIDE GLUCOSE 164 MG/DL (80-115)
[2018-08-02] MEDS: MOXIFLOXACIN 400 MG TAB PO (17:22)
[2018-08-02 20:05] LABS: BEDSIDE GLUCOSE 251 MG/DL (80-115)
[2018-08-02] MEDS: RAMELTEON 8 MG TAB (ROZEREM) PO (20:38)
[2018-08-02 23:13] LABS: BEDSIDE GLUCOSE 183 MG/DL (80-115)
[2018-08-03] MEDS: methylPREDNISolone INJ 40 MG/1 ML VIAL (J2920) IV ×2 (01:22→07:44)
[2018-08-03] MEDS: PERCOCET 5MG/325MG TAB PO ×2 (04:37→10:39)
[2018-08-03 06:30] LABS: BASO % 0.2 % (0.0-1.0); HEMATOCRIT 39.8 % (36.0-47.0); HEMOGLOBIN 12.3 g/dl (12.0-15.5); IMMATURE GRANULOCYTE % 2.2 % (0-3.0); LYMPH # 0.4 10^3/uL (1.5-4.5); LYMPH % 4.7 % (24.0-44.0); MEAN CORPUSCULAR HEMOGLOBIN 29.1 pg (27.0-33.0); MEAN CORPUSCULAR HGB CONC 30.9 g/dl (32.0-36.5); MEAN CORPUSCULAR VOLUME 94.1 fl (80.0-96.0); MONO # 0.7 10^3/uL (0.0-0.8); NEUTROPHILS % 85.9 % (36.0-66.0); PLATELET COUNT, AUTOMATED 316 10^3/uL (150-450); RED BLOOD COUNT 4.23 10^6/uL (4.00-5.40); RED CELL DISTRIBUTION WIDTH 13.5 % (11.5-14.5); WHITE BLOOD COUNT 9.4 10^3/uL (4.0-10.0)
[2018-08-03 06:57] LABS: ANION GAP 6 MEQ/L (8-16); BLOOD UREA NITROGEN 31 MG/DL (7-18); CALCIUM LEVEL 7.4 MG/DL (8.8-10.2); CARBON DIOXIDE LEVEL 36 MEQ/L (21-32); CHLORIDE LEVEL 100 MEQ/L (98-107); CREATININE FOR GFR 0.74 MG/DL (0.55-1.30); GLOMERULAR FILTRATION RATE > 60.0 (>45); GLUCOSE, FASTING 288 MG/DL (70-100); POTASSIUM SERUM 4.1 MEQ/L (3.5-5.1); SODIUM LEVEL 142 MEQ/L (136-145)
[2018-08-03] MEDS: IPRATROPIUM 0.5MG/ALBUTEROL 2.5MG INH SOL UD 3ML (DUONEB)(J7620) NEB ×2 (07:14→11:01)
[2018-08-03] MEDS: HumaLOG INSULIN (NovoLOG) PER UNIT SC (07:43)
[2018-08-03] MEDS: ALPRAZolam 0.5 MG TAB PO (07:43)
[2018-08-03] MEDS: FUROSEMIDE 40 MG TAB PO (07:43)
[2018-08-03] MEDS: ENOXAPARIN 40 MG/0.4 ML SYRINGE (J1650) SC (07:44)
[2018-08-03] MEDS: SENOKOT S TAB PO (07:44)
[2018-08-03] MEDS: POTASSIUM CHLORIDE 10 MEQ SR TABLET PO (07:44)
[2018-08-03] MEDS: guaiFENesin ER 600 MG TAB PO (07:44)
[2018-08-03] MEDS: GABAPENTIN 300 MG CAP PO (07:44)
[2018-08-03] MEDS: LEVEMIR (INSULIN DETEMIR) 1 UNITS/0.01ML SC (07:45)
[2018-08-03] MEDS: NICOTINE 21MG/24HR 1 EA TRANSDERMAL TD (07:45)
== END 2018-08-03 11:30 | disposition home or self-care (01) | DRG 133 ==
LOC: M MSPAV 08-01 03:33 → M ED 13:00 → M ED INP 15:16 → M ICU 16:00
DX: J96.21 Acute and chronic respiratory failure with hypoxia (principal); I50.32 Chronic diastolic (congestive) heart failure; E11.40 Type 2 diabetes mellitus with diabetic neuropathy, unspecified; N20.0 Calculus of kidney; B37.9 Candidiasis, unspecified; J44.1 Chronic obstructive pulmonary disease with (acute) exacerbation; B97.89 Other viral agents as the cause of diseases classified elsewhere; F39 Unspecified mood [affective] disorder; G47.00 Insomnia, unspecified; F17.210 Nicotine dependence, cigarettes, uncomplicated; M10.9 Gout, unspecified; F41.9 Anxiety disorder, unspecified; K57.30 Diverticulosis of large intestine without perforation or abscess without bleeding; K64.8 Other hemorrhoids; K59.00 Constipation, unspecified; G89.29 Other chronic pain

== ENCOUNTER → 2018-08-21 | Outpatient (CLI) | payer OTHER ==
[2018-08-21 19:46] LABS: BASO # 0.1 10^3/uL (0.0-0.2); BASO % 0.3 % (0.0-1.0); EOS # 0.1 10^3/uL (0.0-0.50); EOS % 0.7 % (0.0-3.0); HEMATOCRIT 45.2 % (36.0-47.0); HEMOGLOBIN 14.2 g/dl (12.0-15.5); IMMATURE GRANULOCYTE % 0.4 % (0-3.0); LYMPH # 1.9 10^3/uL (1.5-4.5); LYMPH % 12.7 % (24.0-44.0); MEAN CORPUSCULAR HGB CONC 31.4 g/dl (32.0-36.5); MEAN CORPUSCULAR VOLUME 92.2 fl (80.0-96.0); MONO # 1.5 10^3/uL (0.0-0.8); MONO % 9.9 % (0.0-5.0); NEUTROPHILS # 11.5 10^3/uL (1.8-7.7); PLATELET COUNT, AUTOMATED 340 10^3/uL (150-450); WHITE BLOOD COUNT 15.1 10^3/uL (4.0-10.0)
[2018-08-21 20:16] LABS: ERYTHROCYTE SEDIMENTATION RATE 14 mm/hr (0-30)
== END ==
LOC: M ADAMS 14:17
DX: M10.071 Idiopathic gout, right ankle and foot (principal)
CPT/HCPCS: 84550

== ENCOUNTER 2019-03-19 14:07 | Inpatient (IN) | payer OTHER ==
[~2019-03-19] VITALS: Ht 162.6 cm; Wt 86.0 kg
[~2019-03-19 14:07] MED LIST changes: -/METO25TAB PO; -/MOXI40TA PO; +ALBU83IN INH; +ALCOPAD17 TOP; -ASPI1TAB PO; -ASPI81TA PO; +ASPI81TA26 PO; +AVEL1TAB2 PO; +BASA100I SC; +BLOOKIT21 XX; +BUPR15TASR PO; +CELE10TA PO; +CEPH500T PO; +CHIL1CHW5 PO; +CIPR1TAB20 PO; +CITA20TA6 PO; +COLC1TAB13 PO; +DIFL200T PO; +FLON1SPR NARES; +FLUO20CA19; +GABA-1171 PO; +GABA-843 PO; +GLUC1TES2 XX; +HYDR-4514 PO; +IBUPOTC PO; +INSU1MIS20 SC; +LANC30MI XX; +LANTINJ4; +LANTINJ4 SC; -LASI20TA PO; +LASI20TA3 PO; +LASI40TA9 PO; +LEVO500T3 PO; +METO1TAB87 PO; +METR-265 PO; -METR1TAB66 PO; +NICO21DI3 TD; +NICO21DI31 TD; +NICO21DI34 TD; -NICODIS TD; +NORC1TAB7 PO; +NORC1TAB8 PO; +OSEL75CA2 PO; +PEN1MIS21 SC; +POTA1TAB21 PO; -POTA20VL PO; +POTA2INJ30 PO; +PRED-351 OR; +PRED-351 PO; +PRED10PA2 PO; -PRED10TA OR; -PRED10TA PO; +SMZ/TMP; +TIZA4CAP PO; -TIZA4CAP3 PO; +TRAZ10TA PO; +TRAZ1TAB11 PO; -TRAZ25TA PO; -ZOFR20TA PO; +ZOFR4TAB16 PO; +[UNRECOGNIZED DRUG - CODE] PO; -[UNRECOGNIZED DRUG - CODE] PO
[2019-03-19] MEDS ORDERED: TIZA4TAB4 PO (14:40)
[2019-03-19] MEDS ORDERED: NS 500 ML IV ONE (15:45)
[2019-03-19 16:14] LABS: BASO # 0.1 10^3/uL (0.0-0.2); BASO % 1.2 % (0.0-1.0); EOS # 0.4 10^3/uL (0.0-0.50); EOS % 4.1 % (0.0-3.0); HEMATOCRIT 37.2 % (36.0-47.0); LYMPH # 2.2 10^3/uL (1.5-4.5); LYMPH % 26.4 % (24.0-44.0); MEAN CORPUSCULAR HEMOGLOBIN 30.5 pg (27.0-33.0); MEAN CORPUSCULAR HGB CONC 32.3 g/dl (32.0-36.5); MEAN CORPUSCULAR VOLUME 94.7 fl (80.0-96.0); MONO # 1.3 10^3/uL (0.0-0.8); MONO % 15.3 % (0.0-5.0); NEUTROPHILS # 4.5 10^3/uL (1.8-7.7); NEUTROPHILS % 52.5 % (36.0-66.0); PLATELET COUNT, AUTOMATED 306 10^3/uL (150-450); RED BLOOD COUNT 3.93 10^6/uL (4.00-5.40); WHITE BLOOD COUNT 8.5 10^3/uL (4.0-10.0)
[2019-03-19 16:51] LABS: ALT/SGPT 20 U/L (12-78); BILIRUBIN,DIRECT < 0.1 MG/DL (0.0-0.2); BILIRUBIN,TOTAL 0.1 MG/DL (0.2-1.0); BLOOD UREA NITROGEN 16 MG/DL (7-18); CALCIUM LEVEL 8.5 MG/DL (8.8-10.2); CARBON DIOXIDE LEVEL 40 MEQ/L (21-32); CHLORIDE LEVEL 95 MEQ/L (98-107); CPK CREATINE PHOSPHOKINASE 66 U/L (26-192); CREATININE FOR GFR 0.76 MG/DL (0.55-1.30); GLOMERULAR FILTRATION RATE > 60.0 (>45); GLUCOSE, FASTING 216 MG/DL (70-100); LIPASE 130 U/L (73-393); MB/CK RELATIVE INDEX 4.24 (< OR =4); POTASSIUM SERUM 3.7 MEQ/L (3.5-5.1); SODIUM LEVEL 141 MEQ/L (136-145); TROPONIN I < 0.02 NG/ML (< 0.10)
--- NOTE | 2019-03-19 17:14 | REP ---
CT ABDOMEN AND PELVIS WITHOUT CONTRAST: CT abdomen and pelvis was performed without oral or IV contrast. Sagittal and coronal reconstruction images are performed. Small calcified granuloma is seen along the left hemidiaphragm. The liver and spleen are grossly unremarkable. There is thickening of the left adrenal gland which is stable. The pancreas is grossly unremarkable. There is no renal or ureteral calculus and no right hydronephrosis. There is a large calculus in the left renal pelvis 2.6 cm in diameter with a couple of subcentimeter stones in the left lower pole. There is mild pelvocaliectasis on the left and cortical atrophy. The findings are similar to the prior CT of 07/29/2018. No bladder calculus is seen. A portion of the bladder protrudes into a right inguinal hernia. This was seen on the prior study. There is atherosclerotic calcification of the abdominal aorta without aneurysm. There is no adenopathy. There is no free air or free fluid. No bowel wall thickening is seen. There is colonic diverticulosis without evidence of acute diverticulitis. No pelvic mass is seen. There are degenerative changes of the spine. IMPRESSION: Large calculus left renal pelvis 2.6 cm in maximum diameter with chronic mild left sided pelvocaliectasis similar to the prior exam. Colonic diverticulosis without acute diverticulitis. No free air or free air. No other acute finding. Electronically Signed by Sebastian Richards MD 03/20/2019 12:07 P
[2019-03-19] MEDS ORDERED: CIPROFLOXACIN 400 MG in APPROPRIATE DILUENT 1 EA IV ONE (17:30)
[2019-03-19] MEDS ORDERED: BASA100I SC (18:39)
[2019-03-19] MEDS ORDERED: GLUCOSE 4 GM CHEW TABLET PO PRN (19:00)
[2019-03-19] MEDS ORDERED: GLUCAGON FOR INJ 1 MG VIAL (J1610) SC PRN (19:00)
[2019-03-19] MEDS ORDERED: MAALOX 30 ML SUSP *UDC PO PRN (19:00)
[2019-03-19] MEDS ORDERED: DEXTROSE 50% 50 ML SYRINGE IV PRN (19:00)
[2019-03-19] MEDS ORDERED: MOM 30ML SUSPENSION UDC PO PRN (19:00)
--- NOTE | 2019-03-19 19:26 | SMCUROLCON ---
Urology Consultation General Date of Consultation 03/19/19 Reason For Consultation L Staghorn calculus with 'Pain All Over'. History of Present Illness The patient is a 63-year-old A1 female with a past medical history known large L partial staghorn since at least 3 years, who has IDDM, O2 dep COPD with a h/o resp failure, poss CHF (last ef 55-60% by echo in 2018), presenting today with gen malaise x 2 weeks with L>R back pain. She denies dysuria, fever or chills. She had a yeast UTI in 01/02 and esbl e.coli growing in her urine at the time of presentation with staghorn and an anerobic L thigh abscess in 12/02. CT shows a large partial L staghorn calculus of rel low density with some LUP pyelocaliectasis - sim to that seen on her 2016 CT. WBC<10; Lactate 2.1; creat 0.76. Past Medical History Medical History IDDM x 11 years; periipheral neuropathy; CHF; Chronic pain; O2 dependent COPD Surgical Hstory Hysterectomy; I&D L thigh anerobic abscess Family History Significant Family History: Noncontributory Social History Social History ; cares for grandchildren after son's from drug overdose 2 years ago * Smoker: former Smoker Alcohol: Denies Medications Current Medications Current Medications Home Med (Med Rec Complete!) ASDIRECTED XX ; Start 03/19/19 at 18:45 Allergies Allergies: Coded Allergies: No Known Allergies (Unverified , 01/20/14) Review of Systems General: Reports: Fatigue, Malaise; Denies: ROS Unobtainable, Chills, Night Sweats, Normal Appetite, Other Symptoms Constitutional: Reports: Weakness, Malaise; Denies: Fever, Chills, Sweats, Other Eyes: Denies: Pain, Vision change, Conjunctivae inflammation, Eyelid in flammation, Redness, Other ENT: Reports: Head Aches; Denies: Ear Pain, Dysphagia, Sinus Congestion, Post Nasal Drip, Sore Throat, Epistaxis, Other Symptoms Skin: Reports: Other; Denies: Rash, Lesions, Jaundice, Bruising, Itching, Dry, Breakdown, Nail C hanges Pulmonary: Reports: Dyspnea, Other Symptoms; Denies: Cough, Pleuritic Chest Pain Cardiovascular: Denies Chest Pain, Denies Palpitations; Reports Orthopnea; Denies Paroxysmal Noc. Dyspnea; Reports Edema; Denies Lt Headedness, Denies Other Symptoms Gastrointestinal: Denies: Nausea, Vomiting, Abdominal Pain, Diarrhea, Constipa tion, Melena, Hematochezia, Other Symptoms Genitourinary: Denies: Dysuria, Frequency, Incontinence, Hematuria, Retention, Other Symptoms Hematologic: Denies: Bruising, Bleeding Excessively Endocrine: Denies: Polydipsia, Polyphagia, Polyuria, Heat Intolerance, Cold Intolerance, Other Endocrine Sx Musculoskeletal: Reports: Back Pain, Foot Pain, Joint Pain, Muscle Pain; Denies: Neck Pain, Shoulder Pain, Arm Pain, Hand Pain, Leg Pain, Spasms, Other Symptoms Neurological: Reports: Numbness, Other Symptoms; Denies: Weakness, Incoordination, Change in Speech, Confusion, Seizures Psych: Reports: Mood Normal; Denies: Anxiety, Depression, Memory Issues, Thoughts of Self Harm, Anger, Thoughts of harming Other, Other Psych Physical Examination General Exam: Alert, Cooperative, No Acute Distress, Mild Distress; No: Moderate Distress, Severe Distress, Other EYE EXAM: PERRLA, Conjunctiva & lids normal, EOMI; No: Sclera icteric, Ptosis, Other Eye Symptoms ENT EXAM: Atraumatic, Mucous membr. moist/pink, Pharynx Normal, Tongue Midline; No: Pharyngeal Edema Neck Exam: Supple; No: JVD, thyromegaly, +2 carotid pulse wo bruit, Lymphadenopathy Chest Exam: Clear to auscultation, Normal air movement; No: Rales, Rhonchi, Wheezing Heart Exam: Rate Normal, Regular Rhythm, Normal S1, Normal S2; No: Tachycardic, Bradycardic, Irregular Rhythm, Gallops, Murmurs, Rubs Abdomen Exam: Normal Bowel Sounds, Soft, Tenderness, Other; No: BS Hyperactive, BS Hypoactive, Hepatospenomegaly, Mass, Hernia Female Exam: Nl Ext Genitalia; No: Normal Cervical Exam, Lesions, Discharge, Odor, Tenderness Extremity Exam: Edema, Normal Pulses, Tenderness; No: Clubbing, Cyanosis, Swelling, Other Skin Exam: Nl turgor and temperature; No: Rash, Breakdown Neuro Exam: Normal Speech, Normal Tone, Sensation Intact, Cranial Nerves 3-12 NL, Reflexes 2+; No: Normal Gait, Strength at 5/5 X4 ext Psych Exam: Mental status NL, Mood NL, Anxiety, Memory Intact, Oriented x 3 Vital Signs/I&O Vital Signs Date Time Temp Pulse Resp B/P (MAP) Pulse Ox O2 Delivery O2 Flow Rate FiO2 03/19/19 17:43 98.9 86 20 120/64 (82) 96 Nasal Cannula 2.0 Laboratory Data 24H Labs Laboratory Tests 2 03/19/19 15:47: Immature Granulocyte % (Auto) 0.5, White Blood Count 8.5, Red Blood Count 3.93L, Hemoglobin 12.0, Hematocrit 37.2, Mean Corpuscular Volume 94.7, Mean Corpuscular Hemoglobin 30.5, Mean Corpuscular Hemoglobin Concent 32.3, Red Cell Distribution Width 12.5, Platelet Count 306, Neutrophils (%) (Auto) 52.5, Lymphocytes (%) (Auto) 26.4, Monocytes (%) (Auto) 15.3H, Eosinophils (%) (Auto) 4.1H, Basophils (%) (Auto) 1.2H, Neutrophils # (Auto) 4.5, Lymphocytes # (Auto) 2.2, Monocytes # (Auto) 1.3H, Eosinophils # (Auto) 0.4, Basophils # (Auto) 0.1, Nucleated Red Blood Cells % (auto) 0.0, Urine Color YELLOW, Urine Appearance HAZY, Urine pH 7.0, Urine Specific [place] 1.008, Urine Protein NEGATIVE, Urine Glucose (UA) 3+H, Urine Ketones NEGATIVE, Urine Blood 1+H, Urine Nitrite NEGATIVE, Urine Bilirubin NEGATIVE, Urine Urobilinogen 0.2, Urine Leukocyte Esterase 3+H, Urine WBC (Auto) 135H, Urine RBC (Auto) 13H, Urine Hyaline Casts (Auto) 0, Urine Bacteria (Auto) NEGATIVE, Urine Squamous Epithelial Cells 4, Urine Yeast-Like Cells (Auto) SMALLH, Urine Sperm (Auto) , Anion Gap 6L, Glomerular Filtration Rate > 60.0, Lactic Acid Level 2.1*H, Calcium Level 8.5L, Aspartate Amino Transf (AST/SGOT) 14, Alanine Aminotransferase (ALT/SGPT) 20, Alkaline Phosphatase 86, Total Bilirubin 0.1L, Direct Bilirubin < 0.1, Total Creatine Kinase 66, Creatine Kinase MB 3.0, Creatine Kinase MB Relative Index 4.24H, Troponin I < 0.02, Total Protein 6.0L, Albumin 3.0L, Albumin/Globulin Ratio 1.00, Lipase 130 CBC/BMP Laboratory Tests 03/19/19 15:47 Red Blood Count 3.93 L, Mean Corpuscular Volume 94.7, Mean Corpuscular Hemoglobin 30.5, Mean Corpuscular Hemoglobin Concent 32.3, Red Cell Distribution Width 12.5, Neutrophils (%) (Auto) 52.5, Lymphocytes (%) (Auto) 26.4, Monocytes (%) (Auto) 15.3 H, Eosinophils (%) (Auto) 4.1 H, Basophils (%) (Auto) 1.2 H, Neutrophils # (Auto) 4.5, Lymphocytes # (Auto) 2.2, Monocytes # (Auto) 1.3 H, Eosinophils # (Auto) 0.4, Basophils # (Auto) 0.1 Microbiology Microbiology 03/19/19 Blood Culture, Received Pending 03/19/19 Blood Culture, Received Pending 03/19/19 Urine Culture, Received Pending Assessment A: Poss UTI in high risk pt with mult co-morbidities and L partial staghorn calculus Plan Admit to hospitalists on IV abx pending cultures. Intervene with perc tube or stent if clinically deteriorating Time Spent on Consult: Time Spent / Consult (Minutes): 60 MAGALY CONNER MD Mar 19, 2019 19:14
[2019-03-19] MEDS ORDERED: tiZANidine 4 MG TAB PO PRN (19:30)
[2019-03-19] MEDS: ANEXSIA, NORCO 7.5MG/325MG TABLET(HYDROCODONE/APAP) PO PRN (19:41)
--- NOTE | 2019-03-19 19:51 | REP ---
REASON: History of dyspnea. COMPARISON: Multiple, the latest 01/02/2019, a portable exam. There is cardiomegaly. There is pulmonary vasculature redistribution. There is a haziness throughout the pulmonary vascularity. There are no patchy opacities or pleural effusion. There is thickening of the major fissure. IMPRESSION:Cardiomegaly and evidence of mild interstitial edema. Electronically Signed by Ralph Guzman DO 03/20/2019 09:30 A
[2019-03-19] MEDS: HumaLOG INSULIN (NovoLOG) PER UNIT SC SCH (21:00)
[2019-03-19 21:05] VITALS: BP 121/68
[2019-03-19 21:30] LABS: INR 0.94; PROTHROMBIN TIME 12.7 SECONDS (12.1-14.4)
[2019-03-19 21:31] LABS: PARTIAL THROMBOPLASTIN TIME 29.6 SECONDS (25.4-37.6)
[2019-03-19] MEDS: GABAPENTIN 300 MG CAP PO SCH (22:10)
[2019-03-19] MEDS: ALPRAZolam 0.5 MG TAB PO PRN (22:10)
[2019-03-19] MEDS: HEPARIN SOD (PORCINE) 5000 UNITS/ML VIAL SC SCH (22:10)
[2019-03-19] MEDS: LEVEMIR (INSULIN DETEMIR) 1 UNITS/0.01ML SC SCH (22:11)
--- NOTE | 2019-03-19 22:25 | HPEPDOC ---
General Date of Admission Mar 19, 2019 at 18:54 Date of Service: Mar 19, 2019 Chief Complaint The patient is a 63-year-old female admitted with a reason for visit of UTI. Source: Patient, RN/MD, Old records History of Present Illness Mr. Weiss is a 63 years old woman with hx/o Left Kidney Stone. She presented to Er with c/o back pain radiating to the left inguinal region and generalized body for a few days. She denies dysuria, frequency, fever, chills or other symptoms. In the ER, pt had normal vitals; afebrile; no leucocytosis; normal lactate. US + for LE. CT showed old left kidney stone, unchanged from previous study (08/03). CT report impression: Large calculus left renal pelvis 2.6 cm in maximum diameter with chronic mild left sided pelvicaliectasis similar to the prior exam. Colonic diverticulosis without acute diverticulitis. No free air or free air. No other acute finding. Urology Dr. Odonnell was consulted form ER; impression: Poss UTI in high risk pt with multi co-morbidities and L partial staghorn calculus; RECOMMENDATION: Admit to hospitalists on IV abx pending cultures. Intervene with perc tube or stent if clinically deteriorating. Home Medications Scheduled Albuterol Sulf (Albuterol Sulfate) 2.5 Mg/3 Ml Nebu, 2.5 MG INH TID, (Reported) Furosemide (Furosemide) 40 Mg Tab, 80 MG PO DAILY, (Reported) Gabapentin (Gabapentin) 300 Mg Cap, 300 MG PO TID, (Reported) Insulin Glargine,Hum.rec.anlog (Basaglar Kwikpen U-100) 100 Unit/1 Ml Insuln.pen, 15 UNIT SC BID, (Reported) Metformin HCl (Metformin HCl) 1,000 Mg Tab, 1,000 MG PO BID, (Reported) Potassium Chloride (Potassium Chloride) 8 Meq Tab, 16 MEQ PO DAILY, (Reported) Prednisone (Prednisone) 10 Mg Tab, 10 MG PO DAILY, (Reported) Scheduled PRN Alprazolam (Alprazolam) 1 Mg Tab, 1 MG PO QID PRN for ANXIETY, (Reported) Hydrocodone/Acetaminophen ([place] 7.5-325 Tablet) 1 Tab Tab, 1 TAB PO QID PRN for PAIN, (Reported) Tizanidine HCl (Tizanidine HCl) 4 Mg Tablet, 2 MG PO QID PRN for MUSCLE SPASMS, (Reported) Allergies Coded Allergies: No Known Allergies (Unverified , 01/20/14) Past Medical History Medical History COPD on home O2, CKD 3, CHF, IDDM Surgical History Hysterectomy, Family History Significant Family History: No pertinent family hx Social History * Smoker: former Smoker Alcohol: Denies Drugs: denies A-FIB/CHADSVASC A-FIB History Current/History of A-Fib/PAF?: No Review of Systems Constitutional: Denies: Chills, Fever Eyes: Reports: Pain ENT: Denies: Head Aches Skin: Denies: Rash, Lesions Pulmonary: Denies: Dyspnea, Cough Cardiovascular: Denies: Chest Pain Gastrointestinal: Denies: Nausea, Vomiting, Abdominal Pain, Diarrhea, Constipation Genitourinary: Denies: Dysuria, Frequency Hematologic: Denies: Bruising Musculoskeletal: Reports: Back Pain, Muscle Pain; Denies: Neck Pain Neurological: Reports: Weakness; Denies: Numbness, Change in speech, Confusion Psych: Reports: Mood Normal; Denies: Anxiety Physical Examination General Exam: Positive: Alert, Cooperative Eye Exam: Positive: PERRLA ENT Exam: Positive: Atraumatic, Mucous membr. moist/pink Neck Exam: Positive: Supple; Negative: JVD Chest Exam: Positive: Clear to auscultation, Normal air movement Heart Exam: Positive: Rate Normal, Regular Rhythm, Murmurs Abdomen Exam: Positive: Normal bowel sounds, Soft; Negative: Tenderness Extremity Exam: Positive: Normal pulses; Negative: Edema Skin Exam: Positive: Nl turgor and temperature; Negative: Rash, Breakdown Neuro Exam: Positive: Normal Speech, Strength at 5/5 X4 ext Psych Exam: Positive: Mental status NL, Mood NL, Oriented x 3 Vital Signs Vital Signs Date Time Temp Pulse Resp B/P (MAP) Pulse Ox O2 Delivery O2 Flow Rate FiO2 03/19/19 21:06 19 03/19/19 17:43 98.9 86 120/64 (82) 96 Nasal Cannula 2.0 Laboratory Data Labs 24H Laboratory Tests 2 03/19/19 15:47: Immature Granulocyte % (Auto) 0.5, White Blood Count 8.5, Red Blood Count 3.93L, Hemoglobin 12.0, Hematocrit 37.2, Mean Corpuscular Volume 94.7, Mean Corpuscular Hemoglobin 30.5, Mean Corpuscular Hemoglobin Concent 32.3, Red Cell Distribution Width 12.5, Platelet Count 306, Neutrophils (%) (Auto) 52.5, Lymphocytes (%) (Auto) 26.4, Monocytes (%) (Auto) 15.3H, Eosinophils (%) (Auto) 4.1H, Basophils (%) (Auto) 1.2H, Neutrophils # (Auto) 4.5, Lymphocytes # (Auto) 2.2, Monocytes # (Auto) 1.3H, Eosinophils # (Auto) 0.4, Basophils # (Auto) 0.1, Nucleated Red Blood Cells % (auto) 0.0, Urine Color YELLOW, Urine Appearance HAZY, Urine pH 7.0, Urine Specific [place] 1.008, Urine Protein NEGATIVE, Urine Glucose (UA) 3+H, Urine Ketones NEGATIVE, Urine Blood 1+H, Urine Nitrite NEGATIVE, Urine Bilirubin NEGATIVE, Urine Urobilinogen 0.2, Urine Leukocyte Esterase 3+H, Urine WBC (Auto) 135H, Urine RBC (Auto) 13H, Urine Hyaline Casts (Auto) 0, Urine Bacteria (Auto) NEGATIVE, Urine Squamous Epithelial Cells 4, Urine Yeast-Like Cells (Auto) SMALLH, Urine Sperm (Auto) , Anion Gap 6L, Glomerular Filtration Rate > 60.0, Lactic Acid Level 2.1*H, Calcium Level 8.5L, Aspartate Amino Transf (AST/SGOT) 14, Alanine Aminotransferase (ALT/SGPT) 20, Alkaline Phosphatase 86, Total Bilirubin 0.1L, Direct Bilirubin < 0.1, Total Creatine Kinase 66, Creatine Kinase MB 3.0, Creatine Kinase MB Relative Index 4.24H, Troponin I < 0.02, Total Protein 6.0L, Albumin 3.0L, Albumin/Globulin Ratio 1.00, Lipase 130 03/19/19 20:54: Prothrombin Time 12.7, Prothromb Time International Ratio 0.94, Activated Partial Thromboplast Time 29.6, Lactic Acid Followup at 4 Hours 1.8 03/19/19 21:09: Bedside Glucose (Misc Panel) 122H CBC/BMP Laboratory Tests 03/19/19 15:47 Red Blood Count 3.93 L, Mean Corpuscular Volume 94.7, Mean Corpuscular Hemoglobin 30.5, Mean Corpuscular Hemoglobin Concent 32.3, Red Cell Distribution Width 12.5, Neutrophils (%) (Auto) 52.5, Lymphocytes (%) (Auto) 26.4, Monocytes (%) (Auto) 15.3 H, Eosinophils (%) (Auto) 4.1 H, Basophils (%) (Auto) 1.2 H, Neutrophils # (Auto) 4.5, Lymphocytes # (Auto) 2.2, Monocytes # (Auto) 1.3 H, Eosinophils # (Auto) 0.4, Basophils # (Auto) 0.1 Microbiology Microbiology 03/19/19 Blood Culture, Received Pending 03/19/19 Blood Culture, Received Pending 03/19/19 Urine Culture, Received Pending Assessment/Plan Possible UTI in high risk pt with multiple co-morbidities and L partial staghorn calculus - Admit as per Uro recommendation - IV Cipro; pain management - F/U c/s - Monitor signs of sepsis - Intervene with perc tube or stent if clinically deteriorating. Continue home meds for other chronic illness. Plan / VTE VTE Prophylaxis Ordered?: Yes Plan Anticipated Discharge: Home ASIA ARVIZU MD Mar 19, 2019 22:25
[2019-03-19] MEDS: ALBUTEROL SULFATE 2.5 MG/0.5 ML INH NEB SOLN INH SCH (23:15)
[2019-03-19] MEDS: ACETAMINOPHEN TAB 650MG DOSE (2X325MG) PO PRN (23:32)
[2019-03-20] MEDS: ANEXSIA, NORCO 7.5MG/325MG TABLET(HYDROCODONE/APAP) PO PRN ×2 (03:42→13:35)
[2019-03-20 06:00] VITALS: BP 110/59
[2019-03-20] MEDS ORDERED: CIPROFLOXACIN 400 MG in APPROPRIATE DILUENT 1 EA IV SCH (06:00)
[2019-03-20 06:13] LABS: HEMATOCRIT 39.4 % (36.0-47.0); HEMOGLOBIN 12.5 g/dl (12.0-15.5); MEAN CORPUSCULAR HGB CONC 31.7 g/dl (32.0-36.5); MEAN CORPUSCULAR VOLUME 94.7 fl (80.0-96.0); PLATELET COUNT, AUTOMATED 303 10^3/uL (150-450); RED BLOOD COUNT 4.16 10^6/uL (4.00-5.40); WHITE BLOOD COUNT 7.3 10^3/uL (4.0-10.0)
[2019-03-20 06:43] LABS: BLOOD UREA NITROGEN 19 MG/DL (7-18); CALCIUM LEVEL 8.9 MG/DL (8.8-10.2); CARBON DIOXIDE LEVEL 37 MEQ/L (21-32); CHLORIDE LEVEL 94 MEQ/L (98-107); CREATININE FOR GFR 0.89 MG/DL (0.55-1.30); GLOMERULAR FILTRATION RATE > 60.0 (>45); GLUCOSE, FASTING 197 MG/DL (70-100); POTASSIUM SERUM 3.1 MEQ/L (3.5-5.1); SODIUM LEVEL 138 MEQ/L (136-145)
[2019-03-20] MEDS: ALBUTEROL SULFATE 2.5 MG/0.5 ML INH NEB SOLN INH SCH ×3 (07:36→19:54)
--- NOTE | 2019-03-20 07:52 | IPNPDOC ---
Subjective Review oF Systems Chief Complaint The patient is a 63-year-old female admitted with a reason for visit of UTI. She reports feeling better overnight. Still with some LLQ pain. No chills or V. She complains of L elbow pain. General: Reports: Malaise, Normal Appetite, Other Symptoms; Denies: ROS Unobtainable, Chills, Night Sweats, Fatigue Constitutional: Reports: Weakness; Denies: Fever, Chills, Sweats Musculoskeletal: Reports: Arm Pain, Joint Pain; Denies: Neck Pain, Back Pain, Shoulder Pain, Hand Pain, Leg Pain, Foot Pain, Muscle Pain, Spasms, Other Symptoms Objective Physical Examination General Exam: Alert, Cooperative, No Acute Distress; No: Mild Distress, Moderate Distress, Severe Distress, Other Heart Exam: Positive: Regular Rhythm; Negative: Rate Normal, Tachycardic, Bradycardic, Irregular Rhythm, Normal S1, Normal S2, Gallops, Murmurs, Rubs, Other Vital Signs/I&O Vital Signs Date Time Temp Pulse Resp B/P (MAP) Pulse Ox O2 Delivery O2 Flow Rate FiO2 03/20/19 04:34 19 03/19/19 21:05 98.2 102 121/68 (85) 92 03/19/19 17:43 Nasal Cannula 2.0 I&O- Last 24 Hours up to 6 AM 03/20/19 06:00 Intake Total 940 ml Output Total 200 ml Balance 740 ml Laboratory Data Labs 24H Laboratory Tests 2 03/19/19 15:47: Immature Granulocyte % (Auto) 0.5, White Blood Count 8.5, Red Blood Count 3.93L, Hemoglobin 12.0, Hematocrit 37.2, Mean Corpuscular Volume 94.7, Mean Corpuscular Hemoglobin 30.5, Mean Corpuscular Hemoglobin Concent 32.3, Red Cell Distribution Width 12.5, Platelet Count 306, Neutrophils (%) (Auto) 52.5, Lymphocytes (%) (Auto) 26.4, Monocytes (%) (Auto) 15.3H, Eosinophils (%) (Auto) 4.1H, Basophils (%) (Auto) 1.2H, Neutrophils # (Auto) 4.5, Lymphocytes # (Auto) 2.2, Monocytes # (Auto) 1.3H, Eosinophils # (Auto) 0.4, Basophils # (Auto) 0.1, Nucleated Red Blood Cells % (auto) 0.0, Urine Color YELLOW, Urine Appearance HAZY, Urine pH 7.0, Urine Specific [place] 1.008, Urine Protein NEGATIVE, Urine Glucose (UA) 3+H, Urine Ketones NEGATIVE, Urine Blood 1+H, Urine Nitrite NEGATIVE, Urine Bilirubin NEGATIVE, Urine Urobilinogen 0.2, Urine Leukocyte Esterase 3+H, Urine WBC (Auto) 135H, Urine RBC (Auto) 13H, Urine Hyaline Casts (Auto) 0, Urine Bacteria (Auto) NEGATIVE, Urine Squamous Epithelial Cells 4, Urine Yeast-Like Cells (Auto) SMALLH, Urine Sperm (Auto) , Anion Gap 6L, Glomerular Filtration Rate > 60.0, Lactic Acid Level 2.1*H, Calcium Level 8.5L, Aspartate Amino Transf (AST/SGOT) 14, Alanine Aminotransferase (ALT/SGPT) 20, Alkaline Phosphatase 86, Total Bilirubin 0.1L, Direct Bilirubin < 0.1, Total Creatine Kinase 66, Creatine Kinase MB 3.0, Creatine Kinase MB Relative Index 4.24H, Troponin I < 0.02, Total Protein 6.0L, Albumin 3.0L, Albumin/Globulin Ratio 1.00, Lipase 130 03/19/19 20:54: Prothrombin Time 12.7, Prothromb Time International Ratio 0.94, Activated Partial Thromboplast Time 29.6, Lactic Acid Followup at 4 Hours 1.8 03/19/19 21:09: Bedside Glucose (Misc Panel) 122H 03/20/19 05:40: Nucleated Red Blood Cells % (auto) 0.0, Anion Gap 7L, Glomerular Filtration Rate > 60.0, Calcium Level 8.9, Blood Urea Nitrogen 19H, Creatinine 0.89, Sodium Level 138, Potassium Level 3.1L, Chloride Level 94L, Carbon Dioxide Level 37H CBC/BMP Laboratory Tests 03/19/19 15:47 Red Blood Count 3.93 L, Mean Corpuscular Volume 94.7, Mean Corpuscular Hemoglobin 30.5, Mean Corpuscular Hemoglobin Concent 32.3, Red Cell Distribution Width 12.5, Neutrophils (%) (Auto) 52.5, Lymphocytes (%) (Auto) 26.4, Monocytes (%) (Auto) 15.3 H, Eosinophils (%) (Auto) 4.1 H, Basophils (%) (Auto) 1.2 H, Neutrophils # (Auto) 4.5, Lymphocytes # (Auto) 2.2, Monocytes # (Auto) 1.3 H, Eosinophils # (Auto) 0.4, Basophils # (Auto) 0.1 03/20/19 05:40 Red Blood Count 4.16, Mean Corpuscular Volume 94.7, Mean Corpuscular Hemoglobin 30.0, Mean Corpuscular Hemoglobin Concent 31.7 L, Red Cell Distribution Width 12.4, Calcium Level 8.9 FSBS Laboratory Tests Test 03/19/19 21:09 Range/Units Bedside Glucose (Misc Panel) 122 80-115 MG/DL Microbiology Microbiology 03/19/19 Blood Culture, Received Pending 03/19/19 Blood Culture, Received Pending 03/19/19 Urine Culture, Received Pending Assessment/Plan Date Seen The patient was seen on 03/20/19. Patient Summary A: Likely infected or colonized L staghorn calculus with nl renal function overall. Subjectively improved overnight. Mult significant co-morbidities Plan/VTE VTE Prophylaxis Ordered?: Yes Plan P: Cont abx pending cultures. Would appreciate an estimate of surgical risk from hospitalist team for poss perc nephrostolithotomy or nephrectomy. Will d/w colleagues. Anticipated Discharge: Home MAGALY CONNER MD Mar 20, 2019 07:41
--- NOTE | 2019-03-20 08:13 | ECGEPIP ---
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
[2019-03-20] MEDS: HEPARIN SOD (PORCINE) 5000 UNITS/ML VIAL SC SCH ×2 (08:14→21:28)
[2019-03-20] MEDS: LEVEMIR (INSULIN DETEMIR) 1 UNITS/0.01ML SC SCH ×2 (08:14→21:29)
[2019-03-20] MEDS: HumaLOG INSULIN (NovoLOG) PER UNIT SC SCH ×4 (08:14→21:29)
[2019-03-20] MEDS: GABAPENTIN 300 MG CAP PO SCH ×3 (08:15→21:28)
[2019-03-20] MEDS: ACETAMINOPHEN TAB 650MG DOSE (2X325MG) PO PRN (08:15)
[2019-03-20] MEDS: POTASSIUM CHLORIDE 10 MEQ SR TABLET PO SCH (08:15)
[2019-03-20] MEDS: FUROSEMIDE 80 MG TAB PO SCH (08:16)
[2019-03-20] MEDS: predniSONE 10 MG TAB PO SCH (08:16)
[2019-03-20] MEDS: ALPRAZolam 0.5 MG TAB PO PRN ×3 (08:16→22:07)
[2019-03-20] MEDS ORDERED: tiZANidine 4 MG TAB PO PRN (12:30)
[2019-03-20] MEDS ORDERED: PILL CUTTER 1 EACH XX PRN (13:15)
[2019-03-20] MEDS: cefTRIAXone SOD 1 GM in D5W MINI-BAG PLUS 50 ML IV SCH (13:36)
[2019-03-20 14:00] VITALS: BP 112/59
[2019-03-20] MEDS: DICLOFENAC EPOLAMINE 1.3 % PATCH TOP SCH ×2 (14:02→21:29)
--- NOTE | 2019-03-20 15:20 | IPNPDOC ---
Subjective Date Seen The patient was seen on 03/20/19. Subjective Chief Complaint/HPI complains of low back pain and some discomfort in the left lower quadrant. She also complains of left shoulder pain and restricted range of motion specially raising above the shoulders and reaching back and across the chest which is chronic but says has been worse over the past week. Also complains of left elbow swelling which she says has been told by her PMD was a bursitis. Objective Physical Examination General Exam: Positive: Alert, Cooperative Eye Exam: Positive: PERRLA ENT Exam: Positive: Atraumatic, Mucous membr. moist/pink Neck Exam: Positive: Supple; Negative: JVD Chest Exam: Positive: Clear to auscultation, Normal air movement Heart Exam: Positive: Regular Rhythm; Negative: Rate Normal, Tachycardic, Bradycardic, Irregular Rhythm, Normal S1, Normal S2, Gallops, Murmurs, Rubs, Other Abdomen Exam: Positive: Normal bowel sounds, Soft; Negative: Tenderness Extremity Exam: Positive: Normal pulses; Negative: Edema Skin Exam: Positive: Nl turgor and temperature; Negative: Rash, Breakdown Neuro Exam: Positive: Normal Speech, Strength at 5/5 X4 ext Psych Exam: Positive: Mental status NL, Mood NL, Oriented x 3 Assessment /Plan Assessment Left staghorn calculus with chronic infection or colonization, awaiting urine culture will change antibiotics to ceftriaxone due to drug drug interaction. Dr Odonnell from urology plans for possible left nephrectomy or perc nephrolithotomy Medical Clearance has history of diastolic CHF, Diabetes, no CKD , no CAD or angina Moderate cardiac risk for proposed procedure patient medically optimized for the procedure. Chronic respiratory failure with hypoxia and hypercarbia continue oxygen supplementation upto 88% to 90 % COPD not in exacerbation at present continue home inhalers and nebs. continue prednisone. hypokalemia replaced IDDM Continue levemir and lispro Left shoulder rotator cuff problem and left olecranon bursitis will give diclofenac patch for shoulder continue gabapentin, tizanidine. Left Sided Hydronephrosis 2/2 Renal Calculus Unchanged from previous CT Scan Renal Function within normal limits Diabetic neuropathy Continue gabapentin History of Diastolic congestive heart failure, compensated Preserved ejection fraction with diastolic dysfunction noted on echo from 08/03 Continue Lasix as ordered Anxiety Continue bupropion twice a day, Xanax when necessary DVT prophylaxis Heparin subcutaneous Plan/VTE VTE Prophylaxis Ordered?: Yes Plan Anticipated Discharge: Home VS, I&O, 24H, [facility] Vital Signs/I&O Vital Signs Date Time Temp Pulse Resp B/P (MAP) Pulse Ox O2 Delivery O2 Flow Rate FiO2 03/20/19 14:05 18 03/20/19 14:00 97.4 97 112/59 (76) 93 2.0 03/19/19 17:43 Nasal Cannula I&O- Last 24 Hours up to 6 AM 03/20/19 06:00 Intake Total 1060 ml Output Total 600 ml Balance 460 ml Laboratory Data 24H LABS Laboratory Tests 2 03/19/19 15:47: Immature Granulocyte % (Auto) 0.5, White Blood Count 8.5, Red Blood Count 3.93L, Hemoglobin 12.0, Hematocrit 37.2, Mean Corpuscular Volume 94.7, Mean Corpuscular Hemoglobin 30.5, Mean Corpuscular Hemoglobin Concent 32.3, Red Cell Distribution Width 12.5, Platelet Count 306, Neutrophils (%) (Auto) 52.5, Lymphocytes (%) (Auto) 26.4, Monocytes (%) (Auto) 15.3H, Eosinophils (%) (Auto) 4.1H, Basophils (%) (Auto) 1.2H, Neutrophils # (Auto) 4.5, Lymphocytes # (Auto) 2.2, Monocytes # (Auto) 1.3H, Eosinophils # (Auto) 0.4, Basophils # (Auto) 0.1, Nucleated Red Blood Cells % (auto) 0.0, Urine Color YELLOW, Urine Appearance HAZY, Urine pH 7.0, Urine Specific [place] 1.008, Urine Protein NEGATIVE, Urine Glucose (UA) 3+H, Urine Ketones NEGATIVE, Urine Blood 1+H, Urine Nitrite NEGATIVE, Urine Bilirubin NEGATIVE, Urine Urobilinogen 0.2, Urine Leukocyte Esterase 3+H, Urine WBC (Auto) 135H, Urine RBC (Auto) 13H, Urine Hyaline Casts (Auto) 0, Urine Bacteria (Auto) NEGATIVE, Urine Squamous Epithelial Cells 4, Urine Yeast-Like Cells (Auto) SMALLH, Urine Sperm (Auto) , Anion Gap 6L, Glomerular Filtration Rate > 60.0, Lactic Acid Level 2.1*H, Calcium Level 8.5L, Aspartate Amino Transf (AST/SGOT) 14, Alanine Aminotransferase (ALT/SGPT) 20, Alkaline Phosphatase 86, Total Bilirubin 0.1L, Direct Bilirubin < 0.1, Total Creatine Kinase 66, Creatine Kinase MB 3.0, Creatine Kinase MB Relative Index 4.24H, Troponin I < 0.02, Total Protein 6.0L, Albumin 3.0L, Albumin/Globulin Ratio 1.00, Lipase 130 03/19/19 20:54: Prothrombin Time 12.7, Prothromb Time International Ratio 0.94, Activated Partial Thromboplast Time 29.6, Lactic Acid Followup at 4 Hours 1.8 03/19/19 21:09: Bedside Glucose (Misc Panel) 122H 03/20/19 05:40: Nucleated Red Blood Cells % (auto) 0.0, Anion Gap 7L, Glomerular Filtration Rate > 60.0, Calcium Level 8.9, Blood Urea Nitrogen 19H, Creatinine 0.89, Sodium Level 138, Potassium Level 3.1L, Chloride Level 94L, Carbon Dioxide Level 37H 03/20/19 11:59: Bedside Glucose (Misc Panel) 258H CBC/BMP Laboratory Tests 03/19/19 15:47 Red Blood Count 3.93 L, Mean Corpuscular Volume 94.7, Mean Corpuscular Hemoglobin 30.5, Mean Corpuscular Hemoglobin Concent 32.3, Red Cell Distribution Width 12.5, Neutrophils (%) (Auto) 52.5, Lymphocytes (%) (Auto) 26.4, Monocytes (%) (Auto) 15.3 H, Eosinophils (%) (Auto) 4.1 H, Basophils (%) (Auto) 1.2 H, Neutrophils # (Auto) 4.5, Lymphocytes # (Auto) 2.2, Monocytes # (Auto) 1.3 H, Eosinophils # (Auto) 0.4, Basophils # (Auto) 0.1 03/20/19 05:40 Red Blood Count 4.16, Mean Corpuscular Volume 94.7, Mean Corpuscular Hemoglobin 30.0, Mean Corpuscular Hemoglobin Concent 31.7 L, Red Cell Distribution Width 12.4, Calcium Level 8.9 Microbiology Microbiology 03/19/19 Blood Culture, Received Pending 03/19/19 Blood Culture, Received Pending 03/19/19 Urine Culture, Received Pending CHERRY CUNNINGHAM MD Mar 20, 2019 15:20
[2019-03-20] MEDS ORDERED: POTASSIUM CHLORIDE 10 MEQ SR TABLET PO ONE (15:30)
--- NOTE | 2019-03-20 17:43 | REP ---
RENAL NUCLEAR SCAN WITH FLOW AND FUNCTION: Following the intravenous administration of 8.7 mCi of technetium 99m MAG3 immediate flow images are obtained in the posterior projection showing greater degree of perfusion of the right kidney compared to the left. Delayed renal function images are performed every minute for a period of 30 minutes in the posterior projection. The left kidney appears atrophic with mild dilatation of the upper pole pelvicaliceal system. There is visualization of the left ureter. There is no right hydronephrosis. Split function has 29% on the left and 71% on the right. Time to peak is 0.8 minutes on the left and 2 minutes on the right. T-1/2 is normal on the right with normal renal function curve, T-1/2 is 7.5 minutes. Left renal function curve has low amplitude with mild gradual downward slope. There is mild postvoid residual in urinary bladder after voiding. There is residual mild to moderate dilatation of the left upper pole pelvicaliceal system on final images. IMPRESSION: Left renal atrophy with mild to moderately dilated upper pole pelvicaliceal system as seen on prior CT scans, due to large calculus in the left renal pelvis. There is resultant decreased function of the left kidney. Electronically Signed by Sebastian iRchards MD 03/22/2019 08:45 A
[2019-03-20] MEDS ORDERED: **NOTE PATIENT COMMENT** MISC XX SCH (21:00)
[2019-03-20 22:00] VITALS: BP 120/80
[2019-03-21] MEDS: ANEXSIA, NORCO 7.5MG/325MG TABLET(HYDROCODONE/APAP) PO PRN ×4 (05:08→18:55)
[2019-03-21 06:00] VITALS: BP 107/56
[2019-03-21] MEDS: ALBUTEROL SULFATE 2.5 MG/0.5 ML INH NEB SOLN INH SCH ×3 (07:31→19:36)
--- NOTE | 2019-03-21 08:02 | IPNPDOC ---
Subjective Review oF Systems Chief Complaint The patient is a 63-year-old female admitted with a reason for visit of UTI. She is still having some dysuria. No chills or L flank pain General: Reports: Malaise, Normal Appetite Constitutional: Reports: Weakness, Malaise; Denies: Fever, Chills, Sweats Pulmonary: Reports: Cough; Denies: Dyspnea, Pleuritic Chest Pain Musculoskeletal: Reports: Shoulder Pain, Arm Pain Objective Physical Examination General Exam: Alert, Cooperative, No Acute Distress; No: Mild Distress, Moderate Distress, Severe Distress, Other Chest Exam: Normal air movement Heart Exam: Positive: Regular Rhythm; Negative: Rate Normal, Tachycardic, Bradycardic, Irregular Rhythm, Normal S1, Normal S2, Gallops, Murmurs, Rubs, Other Vital Signs/I&O Vital Signs Date Time Temp Pulse Resp B/P (MAP) Pulse Ox O2 Delivery O2 Flow Rate FiO2 03/21/19 06:18 17 03/21/19 06:00 98.1 78 107/56 (73) 98 1.0 03/19/19 17:43 Nasal Cannula I&O- Last 24 Hours up to 6 AM 03/21/19 06:00 Intake Total 2050 ml Output Total 2550 ml Balance -500 ml Laboratory Data Labs 24H Laboratory Tests 2 03/20/19 11:59: Bedside Glucose (Misc Panel) 258H 03/20/19 16:29: Bedside Glucose (Misc Panel) 411H 03/20/19 20:17: Bedside Glucose (Misc Panel) 363H 03/21/19 04:29: Bedside Glucose (Misc Panel) 181H 03/21/19 07:08: Bedside Glucose (Misc Panel) 149H FSBS Laboratory Tests Test 03/20/19 11:59 03/20/19 16:29 03/20/19 20:17 03/21/19 04:29 Range/Units Bedside Glucose (Misc Panel) 258 411 363 181 80-115 MG/DL Test 03/21/19 07:08 Range/Units Bedside Glucose (Misc Panel) 149 80-115 MG/DL Microbiology Microbiology 03/19/19 Blood Culture - Preliminary, Resulted No growth after 24 hours . All specim... 03/19/19 Blood Culture - Preliminary, Resulted No growth after 24 hours . All specim... 03/19/19 Urine Culture - Final, Complete Enterococcus Faecalis Yeast Like Organism Assessment/Plan Date Seen The patient was seen on 03/21/19. Patient Summary A: UTI - Enterococcus S to ampicillin; Renal scan shows 29% L renal function Plan/VTE VTE Prophylaxis Ordered?: Yes Plan P: May go from standpoint. Pt would be best managed with PCNL to have the best chance of being stone free. Rec ampicillin 500mg qid x 7 days, then 500mg hs x 60 days to prevent recurrence of UTI. F/U with Dr. Bryan in 1 mth to arrange L Perc Nephrostolithotomy Anticipated Discharge: Home MAGALY CONNER MD Mar 21, 2019 08:02
[2019-03-21] MEDS: HumaLOG INSULIN (NovoLOG) PER UNIT SC SCH ×4 (08:13→21:00)
[2019-03-21] MEDS: HEPARIN SOD (PORCINE) 5000 UNITS/ML VIAL SC SCH ×2 (08:13→21:20)
[2019-03-21] MEDS: LEVEMIR (INSULIN DETEMIR) 1 UNITS/0.01ML SC SCH ×2 (08:14→21:21)
[2019-03-21] MEDS: POTASSIUM CHLORIDE 10 MEQ SR TABLET PO SCH (08:16)
[2019-03-21] MEDS: FUROSEMIDE 80 MG TAB PO SCH (08:16)
[2019-03-21] MEDS: GABAPENTIN 300 MG CAP PO SCH ×3 (08:16→21:20)
[2019-03-21] MEDS: predniSONE 10 MG TAB PO SCH (08:16)
[2019-03-21] MEDS: ALPRAZolam 0.5 MG TAB PO PRN ×2 (08:16→21:20)
[2019-03-21] MEDS: DICLOFENAC EPOLAMINE 1.3 % PATCH TOP SCH ×2 (08:16→21:21)
[2019-03-21] MEDS ORDERED: LIDOCAINE 5% (LIDODERM) PATCH TD SCH (09:00)
[2019-03-21] MEDS: ACETAMINOPHEN TAB 650MG DOSE (2X325MG) PO PRN (10:38)
[2019-03-21 14:00] VITALS: BP 115/64
[2019-03-21] MEDS: cefTRIAXone SOD 1 GM in D5W MINI-BAG PLUS 50 ML IV SCH (14:20)
--- NOTE | 2019-03-21 17:01 | IPNPDOC ---
Subjective Date Seen The patient was seen on 03/21/19. Subjective Chief Complaint/HPI COmplains fo feeling generalized weak today, complains of left thigh pain and cramps. left shoulder pain is better today. Objective Physical Examination General Exam: Positive: Alert, Cooperative Eye Exam: Positive: PERRLA ENT Exam: Positive: Atraumatic, Mucous membr. moist/pink Neck Exam: Positive: Supple; Negative: JVD Chest Exam: Positive: Clear to auscultation, Normal air movement Heart Exam: Positive: Regular Rhythm; Negative: Rate Normal, Tachycardic, Bradycardic, Irregular Rhythm, Normal S1, Normal S2, Gallops, Murmurs, Rubs, Other Abdomen Exam: Positive: Normal bowel sounds, Soft; Negative: Tenderness Extremity Exam: Positive: Normal pulses; Negative: Edema Skin Exam: Positive: Nl turgor and temperature; Negative: Rash, Breakdown Neuro Exam: Positive: Normal Speech, Strength at 5/5 X4 ext Psych Exam: Positive: Mental status NL, Mood NL, Oriented x 3 Assessment /Plan Assessment Left staghorn calculus with chronic infection or colonization, awaiting urine culture continue cefriaxone will change to ampicillin on discharge. follow urology recommendations renal scan shows left kidney; with 29% function. Chronic respiratory failure with hypoxia and hypercarbia continue oxygen supplementation upto 88% to 90 % COPD not in exacerbation at present continue home inhalers and nebs. continue prednisone. hypokalemia replaced IDDM Continue levemir and lispro Left shoulder rotator cuff problem and left olecranon bursitis will give diclofenac patch for shoulder continue gabapentin, tizanidine. Left Sided Hydronephrosis 2/2 Renal Calculus Unchanged from previous CT Scan Renal Function within normal limits Renal scn shows left with 29% function Diabetic neuropathy Continue gabapentin History of Diastolic congestive heart failure, compensated Preserved ejection fraction with diastolic dysfunction noted on echo from 08/03 Continue Lasix as ordered Anxiety Continue bupropion twice a day, Xanax when necessary DVT prophylaxis Heparin subcutaneous Dispo: anticipated discharge in 24 hours. Plan/VTE VTE Prophylaxis Ordered?: Yes Plan Anticipated Discharge: Home VS, I&O, 24H, [facility] Vital Signs/I&O Vital Signs Date Time Temp Pulse Resp B/P (MAP) Pulse Ox O2 Delivery O2 Flow Rate FiO2 03/21/19 14:51 17 03/21/19 14:00 98.3 81 115/64 (81) 97 1.0 03/19/19 17:43 Nasal Cannula I&O- Last 24 Hours up to 6 AM 03/21/19 05:59 Intake Total 2020 ml Output Total 2600 ml Balance -580 ml Laboratory Data 24H LABS Laboratory Tests 2 03/20/19 20:17: Bedside Glucose (Misc Panel) 363H 03/21/19 04:29: Bedside Glucose (Misc Panel) 181H 03/21/19 07:08: Bedside Glucose (Misc Panel) 149H 03/21/19 11:39: Bedside Glucose (Misc Panel) 256H 03/21/19 16:24: Bedside Glucose (Misc Panel) 311H Microbiology Microbiology 03/19/19 Blood Culture - Preliminary, Resulted No Growth after 48 hours. All Specime... 03/19/19 Blood Culture - Preliminary, Resulted No Growth after 48 hours. All Specime... 03/19/19 Urine Culture - Final, Complete Enterococcus Faecalis Yeast Like Organism CHERRY CUNNINGHAM MD Mar 21, 2019 17:01
[2019-03-21 22:00] VITALS: BP 138/65
[2019-03-22] MEDS: ANEXSIA, NORCO 7.5MG/325MG TABLET(HYDROCODONE/APAP) PO PRN ×2 (04:33→11:20)
[2019-03-22 05:52] LABS: BASO # 0.1 10^3/uL (0.0-0.2); EOS # 0.4 10^3/uL (0.0-0.50); EOS % 4.3 % (0.0-3.0); HEMATOCRIT 36.5 % (36.0-47.0); HEMOGLOBIN 11.6 g/dl (12.0-15.5); LYMPH # 2.9 10^3/uL (1.5-4.5); LYMPH % 35.1 % (24.0-44.0); MEAN CORPUSCULAR HEMOGLOBIN 29.3 pg (27.0-33.0); MEAN CORPUSCULAR HGB CONC 31.8 g/dl (32.0-36.5); MEAN CORPUSCULAR VOLUME 92.2 fl (80.0-96.0); MONO % 12.3 % (0.0-5.0); NEUTROPHILS # 3.8 10^3/uL (1.8-7.7); NEUTROPHILS % 46.8 % (36.0-66.0); PLATELET COUNT, AUTOMATED 312 10^3/uL (150-450); RED BLOOD COUNT 3.96 10^6/uL (4.00-5.40); WHITE BLOOD COUNT 8.1 10^3/uL (4.0-10.0)
[2019-03-22 06:00] VITALS: BP 145/69
[2019-03-22 06:21] LABS: BLOOD UREA NITROGEN 21 MG/DL (7-18); CALCIUM LEVEL 9.4 MG/DL (8.8-10.2); CARBON DIOXIDE LEVEL 37 MEQ/L (21-32); CHLORIDE LEVEL 96 MEQ/L (98-107); CREATININE FOR GFR 0.69 MG/DL (0.55-1.30); GLOMERULAR FILTRATION RATE > 60.0 (>45); GLUCOSE, FASTING 115 MG/DL (70-100); POTASSIUM SERUM 3.6 MEQ/L (3.5-5.1); SODIUM LEVEL 139 MEQ/L (136-145)
[2019-03-22] MEDS ORDERED: AMPI500C9 PO ×2 (06:51)
[2019-03-22] MEDS: ALBUTEROL SULFATE 2.5 MG/0.5 ML INH NEB SOLN INH SCH (07:08)
[2019-03-22] MEDS: HEPARIN SOD (PORCINE) 5000 UNITS/ML VIAL SC SCH (08:14)
[2019-03-22] MEDS: ALPRAZolam 0.5 MG TAB PO PRN (08:14)
[2019-03-22] MEDS: HumaLOG INSULIN (NovoLOG) PER UNIT SC SCH (08:14)
[2019-03-22] MEDS: GABAPENTIN 300 MG CAP PO SCH (08:15)
[2019-03-22] MEDS: predniSONE 10 MG TAB PO SCH (08:15)
[2019-03-22] MEDS: POTASSIUM CHLORIDE 10 MEQ SR TABLET PO SCH (08:15)
[2019-03-22] MEDS: DICLOFENAC EPOLAMINE 1.3 % PATCH TOP SCH (08:15)
[2019-03-22] MEDS: FUROSEMIDE 80 MG TAB PO SCH (08:16)
[2019-03-22] MEDS: LEVEMIR (INSULIN DETEMIR) 1 UNITS/0.01ML SC SCH (08:17)
[2019-03-22] MEDS ORDERED: cefTRIAXone SOD 1 GM in D5W MINI-BAG PLUS 50 ML IV SCH (09:00)
[2019-03-22] MEDS: ACETAMINOPHEN TAB 650MG DOSE (2X325MG) PO PRN (10:13)
--- NOTE | 2019-03-22 14:34 | DS.PDOC ---
Discharge Summary General Date of Admission Mar 20, 2019 at 23:38 Date of Discharge 03/22/19 Discharge Summary PROCEDURES PERFORMED DURING STAY: [None]. DISCHARGE DIAGNOSES: Left staghorn calculus with chronic infection or colonization COPD Chronic respiratory failure with hypoxia and hypercarbia Chronic diastolic CHF Diabetes with neuropathy left sided hydronephrosis Anxiety Left shoulder rotator cuff tendinitis olecranon bursitis COMPLICATIONS/CHIEF COMPLAINT: UTI. HISTORY OF PRESENT ILLNESS: Please see history and physical HOSPITAL COURSE: The patient is a 63-year-old female with a past medical history known large Left renal staghorn calculus for at least 3 years, who has IDDM, O2 dep COPD with a h/o chronic resp failure, diastolic CHF (last ef 55-60% by echo in 2017), presented with gen malaise x 2 weeks with L>R back pain. She denies dysuria, fever or chills. She had a yeast UTI in 01/02 and esbl e.coli growing in her urine at the time of presentation with staghorn and an anaerobic L thigh abscess in 12/02. CT shows a large partial L staghorn calculus of rel low density with some LUP pyelocaliectasis. Pateint admitted for Poss complicated UTI in high risk pt with multi co-morbidities and L partial staghorn calculus; Left staghorn calculus with chronic infection or colonization, ampicillin on discharge. follow urology recommendations renal scan shows left kidney; with 29% function. Chronic respiratory failure with hypoxia and hypercarbia continue oxygen supplementation upto 88% to 90 % COPD not in exacerbation at present continue home inhalers and nebs. continue prednisone. hypokalemia replaced IDDM Continue levemir and lispro Left shoulder rotator cuff problem and left olecranon bursitis will give diclofenac patch for shoulder continue gabapentin, tizanidine. Left Sided Hydronephrosis 2/2 Renal Calculus Unchanged from previous CT Scan Renal Function within normal limits Renal scn shows left with 29% function Diabetic neuropathy Continue gabapentin History of Diastolic congestive heart failure, compensated Preserved ejection fraction with diastolic dysfunction noted on echo from 08/03 Continue Lasix as ordered Anxiety Continue bupropion twice a day, Xanax when necessary DISCHARGE MEDICATIONS: Please see below. ALLERGIES: Please see below. PHYSICAL EXAMINATION ON DISCHARGE: VITAL SIGNS: Please see below. General Exam: Positive: Alert, Cooperative Eye Exam: Positive: PERRLA ENT Exam: Positive: Atraumatic, Mucous membr. moist/pink Neck Exam: Positive: Supple; Negative: JVD Chest Exam: Positive: Clear to auscultation, Normal air movement Heart Exam: Positive: Regular Rhythm; Negative: Rate Normal, Tachycardic, Bradycardic, Irregular Rhythm, Normal S1, Normal S2, Gallops, Murmurs, Rubs, Other Abdomen Exam: Positive: Normal bowel sounds, Soft; Negative: Tenderness Extremity Exam: Positive: Normal pulses; Negative: Edema Skin Exam: Positive: Nl turgor and temperature; Negative: Rash, Breakdown Neuro Exam: Positive: Normal Speech, Strength at 5/5 X4 ext Psych Exam: Positive: Mental status NL, Mood NL, Oriented x 3 LABORATORY DATA: Please see below. ACTIVITY: [As tolerated]. DIET: Consistent carb DISPOSITION: 01 Home, Self-Care. DISCHARGE INSTRUCTIONS: Follow up with PMD in 1 week Follow up with Dr Bryan in 3 to 4 weeks DISCHARGE CONDITION: [Stable]. TIME SPENT ON DISCHARGE: 35 minutes. Vital Signs/I&Os Vital Signs Date Time Temp Pulse Resp B/P (MAP) Pulse Ox O2 Delivery O2 Flow Rate FiO2 03/22/19 11:20 1 96 03/22/19 08:00 2.0 03/22/19 06:00 97.0 77 145/69 (94) 03/19/19 17:43 Nasal Cannula I&O- Last 24 Hours up to 6 AM 03/22/19 06:00 Intake Total 2945 ml Output Total 1300 ml Balance 1645 ml Laboratory Data Labs 24H Laboratory Tests 2 03/21/19 16:24: Bedside Glucose (Misc Panel) 311H 03/21/19 20:49: Bedside Glucose (Misc Panel) 235H 03/22/19 05:33: Immature Granulocyte % (Auto) 0.5, White Blood Count 8.1, Red Blood Count 3.96L, Hemoglobin 11.6L, Hematocrit 36.5, Mean Corpuscular Volume 92.2, Mean Corpuscular Hemoglobin 29.3, Mean Corpuscular Hemoglobin Concent 31.8L, Red Cell Distribution Width 12.5, Platelet Count 312, Neutrophils (%) (Auto) 46.8, Lymphocytes (%) (Auto) 35.1, Monocytes (%) (Auto) 12.3H, Eosinophils (%) (Auto) 4.3H, Basophils (%) (Auto) 1.0, Neutrophils # (Auto) 3.8, Lymphocytes # (Auto) 2.9, Monocytes # (Auto) 1.0H, Eosinophils # (Auto) 0.4, Basophils # (Auto) 0.1, Nucleated Red Blood Cells % (auto) 0.0, Anion Gap 6L, Glomerular Filtration Rate > 60.0, Blood Urea Nitrogen 21H, Creatinine 0.69, Sodium Level 139, Potassium Level 3.6, Chloride Level 96L, Carbon Dioxide Level 37H, Calcium Level 9.4 CBC/BMP Laboratory Tests 03/22/19 05:33 Red Blood Count 3.96 L, Mean Corpuscular Volume 92.2, Mean Corpuscular Hemoglobin 29.3, Mean Corpuscular Hemoglobin Concent 31.8 L, Red Cell Distribution Width 12.5, Neutrophils (%) (Auto) 46.8, Lymphocytes (%) (Auto) 35.1, Monocytes (%) (Auto) 12.3 H, Eosinophils (%) (Auto) 4.3 H, Basophils (%) (Auto) 1.0, Neutrophils # (Auto) 3.8, Lymphocytes # (Auto) 2.9, Monocytes # (Auto) 1.0 H, Eosinophils # (Auto) 0.4, Basophils # (Auto) 0.1, Calcium Level 9.4 FSBS Laboratory Tests Test 03/21/19 16:24 03/21/19 20:49 Range/Units Bedside Glucose (Misc Panel) 311 235 80-115 MG/DL Microbiology Microbiology 03/19/19 Blood Culture - Preliminary, Resulted No Growth after 48 hours. All Specime... 03/19/19 Blood Culture - Preliminary, Resulted No Growth after 48 hours. All Specime... 03/19/19 Urine Culture - Final, Complete Enterococcus Faecalis Yeast Like Organism Discharge Medications Scheduled Albuterol Sulf (Albuterol Sulfate) 2.5 Mg/3 Ml Nebu, 2.5 MG INH TID, (Reported) Ampicillin Trihydrate (Ampicillin Trihydrate) 500 Mg Capsule, 500 MG PO QID Ampicillin Trihydrate (Ampicillin Trihydrate) 500 Mg Capsule, 500 MG PO QHS start from 03/30/19 for 2 months Furosemide (Furosemide) 40 Mg Tab, 80 MG PO DAILY, (Reported) Gabapentin (Gabapentin) 300 Mg Cap, 300 MG PO TID, (Reported) Insulin Glargine,Hum.rec.anlog (Basaglar Kwikpen U-100) 100 Unit/1 Ml Insuln.pen, 15 UNIT SC BID, (Reported) Metformin HCl (Metformin HCl) 1,000 Mg Tab, 1,000 MG PO BID, (Reported) Potassium Chloride (Potassium Chloride) 8 Meq Tab, 16 MEQ PO DAILY, (Reported) Prednisone (Prednisone) 10 Mg Tab, 10 MG PO DAILY, (Reported) Scheduled PRN Alprazolam (Alprazolam) 1 Mg Tab, 1 MG PO QID PRN for ANXIETY, (Reported) Hydrocodone/Acetaminophen ([place] 7.5-325 Tablet) 1 Tab Tab, 1 TAB PO QID PRN for PAIN, (Reported) Tizanidine HCl (Tizanidine HCl) 4 Mg Tablet, 2 MG PO QID PRN for MUSCLE SPASMS, (Reported) Allergies Coded Allergies: No Known Allergies (Unverified , 01/20/14) CHERRY CUNNINGHAM MD Mar 22, 2019 14:25
== END 2019-03-22 11:33 | disposition home or self-care (01) | DRG 463 ==
LOC: M ED 14:07 → M ED INP 18:54 → M MSPAV 20:55 → OBSVTOIN 03-20 23:38
PROVIDERS: ADMIT Internal Medicine; ATTEND Internal Medicine Nephrology
DX: N13.6 Pyonephrosis (principal); J96.11 Chronic respiratory failure with hypoxia; I50.32 Chronic diastolic (congestive) heart failure; E11.40 Type 2 diabetes mellitus with diabetic neuropathy, unspecified; J96.12 Chronic respiratory failure with hypercapnia; Z99.81 Dependence on supplemental oxygen; N18.3 Chronic kidney disease, stage 3 (moderate); F41.9 Anxiety disorder, unspecified; J44.9 Chronic obstructive pulmonary disease, unspecified; M70.22 Olecranon bursitis, left elbow; M75.32 Calcific tendinitis of left shoulder; E87.6 Hypokalemia; Z79.899 Other long term (current) drug therapy; Z79.4 Long term (current) use of insulin; Z87.891 Personal history of nicotine dependence; N39.0 Urinary tract infection, site not specified

== ENCOUNTER 2019-04-01 09:22 | Inpatient (IN) | payer OTHER ==
[~2019-04-01] VITALS: Ht 165.1 cm; Wt 79.1 kg
[~2019-04-01 09:22] MED LIST changes: +AMPI500C9 PO; +TIZA4TAB4 PO
[2019-04-01 10:41] LABS: BASO # 0.1 10^3/uL (0.0-0.2); BASO % 0.8 % (0.0-1.0); EOS # 0.1 10^3/uL (0.0-0.50); HEMOGLOBIN 11.9 g/dl (12.0-15.5); LYMPH # 3.8 10^3/uL (1.5-4.5); LYMPH % 33.4 % (24.0-44.0); MEAN CORPUSCULAR HEMOGLOBIN 29.1 pg (27.0-33.0); MEAN CORPUSCULAR HGB CONC 32.2 g/dl (32.0-36.5); MEAN CORPUSCULAR VOLUME 90.5 fl (80.0-96.0); MONO # 1.5 10^3/uL (0.0-0.8); NEUTROPHILS # 5.8 10^3/uL (1.8-7.7); NEUTROPHILS % 50.8 % (36.0-66.0); PLATELET COUNT, AUTOMATED 324 10^3/uL (150-450); RED BLOOD COUNT 4.09 10^6/uL (4.00-5.40); WHITE BLOOD COUNT 11.5 10^3/uL (4.0-10.0)
[2019-04-01 11:28] LABS: ALBUMIN 2.9 GM/DL (3.2-5.2); ALT/SGPT 18 U/L (12-78); BILIRUBIN,DIRECT < 0.1 MG/DL (0.0-0.2); BILIRUBIN,TOTAL 0.2 MG/DL (0.2-1.0); BLOOD UREA NITROGEN 24 MG/DL (7-18); CALCIUM LEVEL 8.8 MG/DL (8.8-10.2); CARBON DIOXIDE LEVEL 40 MEQ/L (21-32); CHLORIDE LEVEL 95 MEQ/L (98-107); CREATININE FOR GFR 0.66 MG/DL (0.55-1.30); GLOMERULAR FILTRATION RATE > 60.0 (>45); GLUCOSE, FASTING 123 MG/DL (70-100); POTASSIUM SERUM 4.5 MEQ/L (3.5-5.1); SODIUM LEVEL 138 MEQ/L (136-145)
[2019-04-01] MEDS ORDERED: NS 1,000 ML IV ONE (12:30)
[2019-04-01] MEDS ORDERED: KETOROLAC 30 MG/ML VIAL (J1885) IV ONE (12:45)
--- NOTE | 2019-04-01 14:23 | REP ---
CT ABDOMEN AND PELVIS WITHOUT CONTRAST: CT abdomen and pelvis performed without oral or IV contrast and compared to a prior CT 03/19/[address] chest 01/02/2019. In the visualized lung bases there is a 9 mm somewhat ill-defined nodular density in the left lower lobe not seen on the prior CT of the chest. This may represent mild focal atelectasis or infiltrate. However, followup CT of the chest should be obtained in 1 to 2 months to ensure resolution. There is a small hiatal hernia. Liver, spleen, and right adrenal are grossly unremarkable. There is mild left adrenal gland thickening which appears benign. The pancreas is grossly unremarkable. The right kidney is grossly unremarkable with no hydronephrosis or nephrolithiasis. There is again a large calculus in the left renal pelvis approximately 2.7 cm in maximum diameter. This causes mild diltation of the left upper pole calices and renal pelvis, unchanged since prior studies. There is mild to moderate left renal atrophy. There are also two smaller intrarenal calculi in the lower pole of the left kidney. There is no ureteral calculus or dilatation. No bladder calculus is seen. A portion of the anterior bladder protrudes into a right inguinal hernia unchanged since prior studies. Bladder contains a small amount of air. There is atherosclerotic calcification of the abdominal aorta without aneurysm. There is no adenopathy. There is no free air or free fluid. There is no bowel wall thickening of inflammation. The appendix is normal. There is extensive sigmoid diverticulosis without acute diverticulitis. A large amount of air and fecal material is seen throughout the colon. No pelvic mass is seen. IMPRESSION: Ill-defined 9 mm nodular density left lung base may represent a small area of focal atelectasis or infiltrate. However followup CT of the chest should be obtained in 1 to 2 months to ensure resolution. Abdominal and pelvic structures appear unchanged since 03/19/2019. There is again a large calculus in the left renal pelvis with mild dilatation of the upper pole pelvicalyceal system unchanged. Small amount of air in the upper pole pelvicalyceal system is new however, and could be from recent left ureteral instrumentation. If the patient has not undergone instrumentation then this could indicate pyelonephritis. Sigmoid diverticulosis without acute diverticulitis. Large amount of air and fecal material throughout the colon. No free air or free fluid. No evidence of appendicitis. Electronically Signed by Sebastian Richards MD 04/01/2019 04:40 P
[2019-04-01] MEDS ORDERED: cefTRIAXone SOD 1 GM in D5W MINI-BAG PLUS 50 ML IV ONE (14:45)
[2019-04-01] MEDS ORDERED: AMPI500C9 PO (14:49)
[2019-04-01] MEDS ORDERED: ZYLO300T6 PO (14:51)
[2019-04-01] MEDS ORDERED: MORPHINE 2 MG/ML 1ML SYRINGE (J2270) IV PRN (15:30)
[2019-04-01] MEDS ORDERED: ONDANSETRON 4MG/2ML VIAL (J2405) IV PRN (16:00)
--- NOTE | 2019-04-01 16:22 | HPEPDOC ---
[facility] Medical History & Physical Date of Admission Apr 01, 2019 Date of Service: Apr 01, 2019 History and Physical CHIEF COMPLAINT: severe low back pain HISTORY OF PRESENT ILLNESS: Pt is 63 y/o F with PMHx significant for large left partial staghorn nephrolithiasis diagnosed 3 years ago with Hx of ESBL in urine 2015 with frequent admissions in the past for same, pt f/u with urologist in [place] with no available urology records. Dr. Arizmendi from urology service was consulted during previous admission who recommended percutaneous intervention in case of deterioration. Upon my encounter pt is in severe distress due to back pain radiating to inguinal area. Denies any fever, chills. Reports dysuria and frequency. Pt states she has been having flank pain, generalized weakness and fatigue for the past three weeks. Her pain exacerbated last night. Denies any dyspnea, CP or lightheadedness. Reports nausea and vomiting no change in BM. PAST MEDICAL HISTORY: 1. Large Left Staghorn Nephrolithiasis x 3 years 2. Left Hydronephrosis 3. COPD on home O2 4. Diastolic CHF Echo 08/03 5. T2DM on Insulin 6. Hx of ESBL UTI 7. Chronic Bacteriuria 8. Hx of left thigh Abscess anaerobic PAST SURGICAL HISTORY: 1. hysterectomy 2. 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 REVIEW OF SYSTEMS: 10 point ROS negative except HPI HOME MEDICATIONS: Please see below. PHYSICAL EXAMINATION: GENERAL APPEARANCE: AAOx3 , pt in distress due to pain HEENT: no trauma, no discharge, no JVD, neck supple CARDIOVASCULAR: S1 S2 no murmur LUNGS: clear bilat ABDOMEN: soft NT ND MUSCULOSKELETAL: no edema no tenderness NEUROLOGICAL: grossly intact PSYCHIATRIC: pt is crying due to pain LABORATORY DATA: See below. IMAGING: Abd/Pelvis CT 04/01/19 9 mm Lt base lung nodular density, requires f/u in 3 months Lt renal air sec to instrumentation versus Pyelo Lt renal hydronephrosis Lt large renal calculus MICROBIOLOGY: Please see below. A/P 1-Empiric treatment for Pyelonephritis -sec. to large staghorn in Lt kidney resulting in pyelonephritis, frequent admissions for UTI and chronic bacteriuria. -ED physician consulted pharmacy technician infusion urologist who recommended conservative management for now -Please call Dr. Bryan in AM since pt might require invasive urology procedure in view of recurrent UTIs, severe pain -Zosyn ordered -Hx of ESBL in 2016, F/U cultures -IV Hydration NS -Monitor BMP, Cr. NL at this point -Consider ID consult in AM -Pain control morphine, ketorolac 2-Large Lt Nephrolithiasis -Resulting in recurrent UTI, R/O pyelonephritis -Resulting in hydronephrosis Lt side -New CT reveals air in pyelocaliceal system -As per previous notes pt f/u with outpatient urology in [place] (?), need to obtain records -Urology consult in AM for any procedure 3-COPD Albuterol/Ipratropium Q6hr stable no dyspnea no increased sputum production 4-Anxiety/Depression Xanax 1mg Q8hr home meds 5-Diastolic CHF 2DEcho 09/03 Stable 6-Incidental 9mm lung nodule -reported in CT abdomen -f/u in 3 months DVT Prophylaxis Pt/OT SW Vital Signs Vital Signs Date Time Temp Pulse Resp B/P (MAP) Pulse Ox O2 Delivery O2 Flow Rate FiO2 04/01/19 15:51 18 04/01/19 14:02 97.6 74 119/66 (83) 100 Nasal Cannula 2.0 Laboratory Data Labs 24H Laboratory Tests 2 04/01/19 10:15: Immature Granulocyte % (Auto) 1.0, White Blood Count 11.5H, Red Blood Count 4.09, Hemoglobin 11.9L, Hematocrit 37.0, Mean Corpuscular Volume 90.5, Mean Corpuscular Hemoglobin 29.1, Mean Corpuscular Hemoglobin Concent 32.2, Red Cell Distribution Width 12.9, Platelet Count 324, Neutrophils (%) (Auto) 50.8, Lymphocytes (%) (Auto) 33.4, Monocytes (%) (Auto) 13.0H, Eosinophils (%) (Auto) 1.0, Basophils (%) (Auto) 0.8, Neutrophils # (Auto) 5.8, Lymphocytes # (Auto) 3.8, Monocytes # (Auto) 1.5H, Eosinophils # (Auto) 0.1, Basophils # (Auto) 0.1, Nucleated Red Blood Cells % (auto) 0.0, Urine Color YELLOW, Urine Appearance CL OUDYH, Urine pH 5.0, Urine Specific [place] 1.018, Urine Protein NEGATIVE, Urine Glucose (UA) NEGATIVE, Urine Ketones NEGATIVE, Urine Blood 1+H, Urine Nitrite NEGATIVE, Urine Bilirubin NEGATIVE, Urine Urobilinogen 0.2, Urine Leukocyte Esterase 3+H, Urine WBC (Auto) TNTCH, Urine RBC (Auto) 54H, Urine Hyaline Casts (Auto) 0, Urine Bacteria (Auto) 1+H, Urine Squamous Epithelial Cells 3, Urine Yeast-Like Cells (Auto) LARGEH, Urine Sperm (Auto) , Anion Gap 3L, Glomerular Filtration Rate > 60.0, Lactic Acid Level 1.8, Blood Urea Nitrogen 24H, Creatinine 0.66, Sodium Level 138, Potassium Level 4.5, Chloride Level 95L, Carbon Dioxide Level 40H, Calcium Level 8.8, Aspartate Amino Transf (AST/SGOT) 25, Alanine Aminotransferase (ALT/SGPT) 18, Alkaline Phosphatase 79, Total Bilirubin 0.2, Direct Bilirubin < 0.1, Total Protein 6.0L, Albumin 2.9L, Albumin/Globulin Ratio 0.94L 04/01/19 11:22: Bedside Glucose (Misc Panel) 119H 04/01/19 13:40: Urine Color YELLOW, Urine Appearance CLOUDYH, Urine pH 7.0, Urine Specific [place] 1.014, Urine Protein NEGATIVE, Urine Glucose (UA) NEGATIVE, Urine Ketones NEGATIVE, Urine Blood 1+H, Urine Nitrite NEGATIVE, Urine Bilirubin NEGATIVE, Urine Urobilinogen 0.2, Urine Leukocyte Esterase 3+H, Urine WBC (Auto) TNTCH, Urine RBC (Auto) 52H, Urine Hyaline Casts (Auto) 0, Urine Bacteria (Auto) 1+H, Urine Squamous Epithelial Cells 0, Urine Yeast-Like Cells (Auto) SMALLH, Urine Sperm (Auto) 04/01/19 15:56: Bedside Glucose (Misc Panel) 112 CBC/BMP Laboratory Tests 04/01/19 10:15 Red Blood Count 4.09, Mean Corpuscular Volume 90.5, Mean Corpuscular Hemoglobin 29.1, Mean Corpuscular Hemoglobin Concent 32.2, Red Cell Distribution Width 12.9, Neutrophils (%) (Auto) 50.8, Lymphocytes (%) (Auto) 33.4, Monocytes (%) (Auto) 13.0 H, Eosinophils (%) (Auto) 1.0, Basophils (%) (Auto) 0.8, Neutrophils # (Auto) 5.8, Lymphocytes # (Auto) 3.8, Monocytes # (Auto) 1.5 H, Eosinophils # (Auto) 0.1, Basophils # (Auto) 0.1, Calcium Level 8.8, Aspartate Amino Transf (AST/SGOT) 25, Alanine Aminotransferase (ALT/SGPT) 18, Alkaline Phosphatase 79, Total Bilirubin 0.2, Direct Bilirubin < 0.1, Total Protein 6.0 L, Albumin 2.9 L Microbiology Microbiology 04/01/19 Blood Culture, Received Pending 04/01/19 Blood Culture, Received Pending 04/01/19 Urine Culture, Received Pending 04/01/19 Urine Culture, Received Pending Home Medications Scheduled Albuterol Sulf (Albuterol Sulfate) 2.5 Mg/3 Ml Nebu, 2.5 MG INH QID Allopurinol (Zyloprim) 300 Mg Tablet, 300 MG PO DAILY Ampicillin Trihydrate (Ampicillin Trihydrate) 500 Mg Capsule, 500 MG PO QHS Furosemide (Furosemide) 40 Mg Tab, 80 MG PO DAILY Gabapentin (Gabapentin) 300 Mg Cap, 300 MG PO TID Insulin Glargine,Hum.rec.anlog (Basaglar Kwikpen U-100) 100 Unit/1 Ml Insuln.pen, 15 UNIT SC BID Metformin HCl (Metformin HCl) 1,000 Mg Tab, 1,000 MG PO BID Potassium Chloride (Potassium Chloride) 8 Meq Tab, 16 MEQ PO DAILY Prednisone (Prednisone) 10 Mg Tab, 10 MG PO DAILY Scheduled PRN Alprazolam (Alprazolam) 1 Mg Tab, 1 MG PO QID PRN for ANXIETY Hydrocodone/Acetaminophen ([place] 7.5-325 Tablet) 1 Tab Tab, 1 TAB PO QID PRN for PAIN Tizanidine HCl (Tizanidine HCl) 4 Mg Tablet, 4 MG PO QID PRN for MUSCLE SPASMS Allergies Coded Allergies: No Known Allergies (Unverified , 01/20/14) A-FIB/CHADSVASC A-FIB History Current/History of A-Fib/PAF?: JUAN R Johnson MD Apr 01, 2019 16:22
[2019-04-01 17:00] VITALS: BP 150/65
[2019-04-01] MEDS: NS 1,000 ML IV SCH (17:10)
[2019-04-01] MEDS: KETOROLAC 30 MG/ML VIAL (J1885) IV PRN (18:53)
[2019-04-01] MEDS: IPRATROPIUM 0.5MG/ALBUTEROL 2.5MG INH SOL UD 3ML (DUONEB)(J7620) NEB SCH (19:15)
[2019-04-01] MEDS ORDERED: ALPRAZolam 0.5 MG TAB PO ONE (19:30)
[2019-04-01] MEDS: PIPERACILLIN/TAZOBACTAM SOD 3.375 GM in D5W MINI-BAG PLUS 50 ML IV SCH (19:40)
[2019-04-01] MEDS: HEPARIN SOD (PORCINE) 5000 UNITS/ML VIAL SQ SCH (21:35)
[2019-04-01] MEDS: LEVEMIR (INSULIN DETEMIR) 1 UNITS/0.01ML SC SCH (21:36)
[2019-04-01 22:00] VITALS: BP 130/73
[2019-04-02] MEDS: KETOROLAC 30 MG/ML VIAL (J1885) IV PRN (01:32)
[2019-04-02] MEDS: PIPERACILLIN/TAZOBACTAM SOD 3.375 GM in D5W MINI-BAG PLUS 50 ML IV SCH ×4 (01:32→20:14)
[2019-04-02] MEDS: NS 1,000 ML IV SCH ×3 (01:33→22:07)
[2019-04-02 06:00] VITALS: BP 114/58
[2019-04-02 06:03] LABS: BASO # 0.1 10^3/uL (0.0-0.2); BASO % 0.5 % (0.0-1.0); EOS # 0.2 10^3/uL (0.0-0.50); EOS % 2.1 % (0.0-3.0); HEMATOCRIT 34.2 % (36.0-47.0); HEMOGLOBIN 10.9 g/dl (12.0-15.5); LYMPH # 2.5 10^3/uL (1.5-4.5); MEAN CORPUSCULAR HGB CONC 31.9 g/dl (32.0-36.5); MONO # 1.2 10^3/uL (0.0-0.8); MONO % 11.4 % (0.0-5.0); NEUTROPHILS # 6.8 10^3/uL (1.8-7.7); NEUTROPHILS % 62.4 % (36.0-66.0); PLATELET COUNT, AUTOMATED 280 10^3/uL (150-450); RED BLOOD COUNT 3.76 10^6/uL (4.00-5.40); WHITE BLOOD COUNT 10.8 10^3/uL (4.0-10.0)
[2019-04-02] MEDS: ALPRAZolam 0.5 MG TAB PO SCH ×3 (06:21→22:07)
[2019-04-02] MEDS: HEPARIN SOD (PORCINE) 5000 UNITS/ML VIAL SQ SCH ×3 (06:21→22:06)
[2019-04-02 06:31] LABS: ALBUMIN 2.7 GM/DL (3.2-5.2); ALT/SGPT 18 U/L (12-78); BILIRUBIN,TOTAL 0.2 MG/DL (0.2-1.0); BLOOD UREA NITROGEN 27 MG/DL (7-18); CALCIUM LEVEL 8.2 MG/DL (8.8-10.2); CARBON DIOXIDE LEVEL 36 MEQ/L (21-32); CHLORIDE LEVEL 98 MEQ/L (98-107); GLOMERULAR FILTRATION RATE > 60.0 (>45); GLUCOSE, FASTING 182 MG/DL (70-100); POTASSIUM SERUM 3.8 MEQ/L (3.5-5.1); SODIUM LEVEL 139 MEQ/L (136-145); TOTAL PROTEIN 5.6 GM/DL (6.4-8.2)
[2019-04-02] MEDS: LEVEMIR (INSULIN DETEMIR) 1 UNITS/0.01ML SC SCH ×2 (07:59→20:23)
[2019-04-02] MEDS: IPRATROPIUM 0.5MG/ALBUTEROL 2.5MG INH SOL UD 3ML (DUONEB)(J7620) NEB SCH ×4 (08:00→19:56)
[2019-04-02] MEDS ORDERED: GLUCOSE 4 GM CHEW TABLET PO PRN (09:45)
[2019-04-02] MEDS ORDERED: DEXTROSE 50% 50 ML SYRINGE IV PRN (09:45)
[2019-04-02] MEDS ORDERED: GLUCAGON FOR INJ 1 MG VIAL (J1610) SC PRN (09:45)
[2019-04-02] MEDS: HumaLOG INSULIN (NovoLOG) PER UNIT SC SCH ×3 (11:40→20:24)
[2019-04-02] MEDS: ANEXSIA, NORCO 7.5MG/325MG TABLET(HYDROCODONE/APAP) PO PRN ×2 (11:41→20:15)
[2019-04-02 14:00] VITALS: BP 159/80
[2019-04-02] MEDS: GABAPENTIN 300 MG CAP PO SCH ×2 (14:38→20:14)
[2019-04-02] MEDS: IPRATROPIUM 0.5MG/ALBUTEROL 2.5MG INH SOL UD 3ML (DUONEB)(J7620) NEB PRN (16:06)
--- NOTE | 2019-04-02 20:32 | IPNPDOC ---
Date Seen The patient was seen on 04/02/19. Progress Note SUBJECTIVE: Patient reported severe back pain as well as b/l inguinal pain. Initially stated that she has pain b/l inguinal, attributed L. sided pain with radiation to the back from nephrolithiasis. However, later stated only having R. sided pain from hernia. Denies any other complaints apart from acute on chronic pain. OBJECTIVE PHYSICAL EXAMINATION: VITAL SIGNS: Please see below. General: Alert, moderate to severe distress. Eyes: Normal sclera, EOMI, CLAUDIA HENT: Atraumatic, neck supple, moist mucous membranes Cardiovascular: Normal rate, normal rhythm. Pulmonary: Clear to auscultation b/l, no wheezing GI: Soft, b/l lower abdominal tenderness, nondistended Skin: Warm and dry Neuro: CN grossly intact. No focal deficits. Strengths equal b/l. Psych: oriented x 3 LABORATORY DATA, IMAGING STUDIES, MICROBIOLOGY: Please see below. DVT prophylaxis ordered?: HSQ and SCD ASSESSMENT AND PLAN: 1. L. sided nephrolithiasis - Known history of staghorn calculi w/ frequent admissions for UTI and bacteuria. - Severe pain was initially attributed to calculi as patient states that she can tell the pain of stone from her chronic pain. However, later denies L. sided pain. - pain control, resume home meds. - Urine culture with yeast like organisms. No symptoms however? - Currently on Zosyn. Will d/c. Likely not a candidate for antifungal if patient is asymptomatic. - But will treat with fluconazole given recent instrumentation. - Had been evaluated by Dr. Bryan. Will need f/u as outpatient. - Given pain not attributed to stone on this admission, will not require urgent urologic intervention at this time. 2. COPD - Duonebs PRN - Not in exacerbation 3. Anxiety/Depression - Resume home meds 4. HFpEF - Not in exacerbatin - Resume home meds. 5. 9mm ill define lung mass - f/u as outpatient. 6. R. side abdominal pain - CT scan noted. No significant changes from prior. - Patient does describe pain everywhere and in chronic pain. - Unsure if this is acute. Will re-evaluate in AM. May need surgical consult if persistent. VS, I&O, 24H, Fishbone Vital Signs/I&O Vital Signs Date Time Temp Pulse Resp B/P (MAP) Pulse Ox O2 Delivery O2 Flow Rate FiO2 04/02/19 14:00 98.0 87 18 159/80 (106) 96 2.0 04/01/19 16:51 Room Air I&O- Last 24 Hours up to 6 AM 04/02/19 06:00 Intake Total 2100 ml Output Total 850 ml Balance 1250 ml Laboratory Data 24H LABS Laboratory Tests 2 04/01/19 20:42: Bedside Glucose (Misc Panel) 181H 04/02/19 05:44: Immature Granulocyte % (Auto) 0.6, White Blood Count 10.8H, Red Blood Count 3.76L, Hemoglobin 10.9L, Hematocrit 34.2L, Mean Corpuscular Volume 91.0, Mean Corpuscular Hemoglobin 29.0, Mean Corpuscular Hemoglobin Concent 31.9L, Red Cell Distribution Width 12.6, Platelet Count 280, Neutrophils (%) (Auto) 62.4, Lymphocytes (%) (Auto) 23.0L, Monocytes (%) (Auto) 11.4H, Eosinophils (%) (Auto) 2.1, Basophils (%) (Auto) 0.5, Neutrophils # (Auto) 6.8, Lymphocytes # (Auto) 2.5, Monocytes # (Auto) 1.2H, Eosinophils # (Auto) 0.2, Basophils # (Auto) 0.1, Nucleated Red Blood Cells % (auto) 0.0, Anion Gap 5L, Glomerular Filtration Rate > 60.0, Blood Urea Nitrogen 27H, Creatinine 0.80, Sodium Level 139, Potassium Level 3.8, Chloride Level 98, Carbon Dioxide Level 36H, Calcium Level 8.2L, Aspartate Amino Transf (AST/SGOT) 8, Alanine Aminotransferase (ALT/SGPT) 18, Alkaline Phosphatase 82, Total Bilirubin 0.2, Total Protein 5.6L, Albumin 2.7L, Albumin/Globulin Ratio 0.93L 04/02/19 11:27: Bedside Glucose (Misc Panel) 194H 04/02/19 16:43: Bedside Glucose (Misc Panel) 262H CBC/BMP Laboratory Tests 04/02/19 05:44 Red Blood Count 3.76 L, Mean Corpuscular Volume 91.0, Mean Corpuscular Hemoglobin 29.0, Mean Corpuscular Hemoglobin Concent 31.9 L, Red Cell Distribution Width 12.6, Neutrophils (%) (Auto) 62.4, Lymphocytes (%) (Auto) 23.0 L, Monocytes (%) (Auto) 11.4 H, Eosinophils (%) (Auto) 2.1, Basophils (%) (Auto) 0.5, Neutrophils # (Auto) 6.8, Lymphocytes # (Auto) 2.5, Monocytes # (Auto) 1.2 H, Eosinophils # (Auto) 0.2, Basophils # (Auto) 0.1, Calcium Level 8.2 L, Aspartate Amino Transf (AST/SGOT) 8, Alanine Aminotransferase (ALT/SGPT) 18, Alkaline Phosphatase 82, Total Bilirubin 0.2, Total Protein 5.6 L, Albumin 2.7 L Microbiology Microbiology 04/01/19 Blood Culture - Preliminary, Resulted No growth after 24 hours . All specim... 04/01/19 Blood Culture - Preliminary, Resulted No growth after 24 hours . All specim... 04/01/19 Urine Culture - Final, Complete Yeast Like Organism 04/01/19 Urine Culture - Preliminary, Resulted Yeast Like Organism QUIANA LUNA MD Apr 02, 2019 20:31
[2019-04-02 22:00] VITALS: BP 139/93
[2019-04-02] MEDS: FLUCONAZOLE 100 MG TAB PO SCH (22:07)
[2019-04-03] MEDS: IPRATROPIUM 0.5MG/ALBUTEROL 2.5MG INH SOL UD 3ML (DUONEB)(J7620) NEB SCH ×4 (01:37→20:38)
[2019-04-03 06:00] VITALS: BP 139/65
[2019-04-03] MEDS: ALPRAZolam 0.5 MG TAB PO SCH ×3 (06:17→20:32)
[2019-04-03] MEDS: HEPARIN SOD (PORCINE) 5000 UNITS/ML VIAL SQ SCH ×3 (06:17→20:34)
[2019-04-03] MEDS: ANEXSIA, NORCO 7.5MG/325MG TABLET(HYDROCODONE/APAP) PO PRN ×3 (06:18→18:43)
[2019-04-03 06:38] LABS: BLOOD UREA NITROGEN 18 MG/DL (7-18); CALCIUM LEVEL 8.2 MG/DL (8.8-10.2); CARBON DIOXIDE LEVEL 35 MEQ/L (21-32); CHLORIDE LEVEL 104 MEQ/L (98-107); CREATININE FOR GFR 0.73 MG/DL (0.55-1.30); GLOMERULAR FILTRATION RATE > 60.0 (>45); GLUCOSE, FASTING 147 MG/DL (70-100); POTASSIUM SERUM 3.7 MEQ/L (3.5-5.1); SODIUM LEVEL 143 MEQ/L (136-145)
[2019-04-03] MEDS: HumaLOG INSULIN (NovoLOG) PER UNIT SC SCH ×4 (07:39→20:33)
[2019-04-03] MEDS: LEVEMIR (INSULIN DETEMIR) 1 UNITS/0.01ML SC SCH ×2 (08:48→20:33)
[2019-04-03] MEDS: NS 1,000 ML IV SCH (08:48)
[2019-04-03] MEDS: GABAPENTIN 300 MG CAP PO SCH ×3 (08:48→20:32)
[2019-04-03 14:00] VITALS: BP 107/64
[2019-04-03] MEDS: FUROSEMIDE 40 MG TAB PO SCH (14:44)
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
[2019-04-03] MEDS: FLUCONAZOLE 100 MG TAB PO SCH (20:32)
[2019-04-03 22:00] VITALS: BP 152/70
[2019-04-04] MEDS: IPRATROPIUM 0.5MG/ALBUTEROL 2.5MG INH SOL UD 3ML (DUONEB)(J7620) NEB SCH ×4 (02:00→19:36)
[2019-04-04] MEDS: ANEXSIA, NORCO 7.5MG/325MG TABLET(HYDROCODONE/APAP) PO PRN ×3 (04:18→18:37)
[2019-04-04] MEDS: ALPRAZolam 0.5 MG TAB PO SCH ×3 (05:48→21:34)
[2019-04-04] MEDS: HEPARIN SOD (PORCINE) 5000 UNITS/ML VIAL SQ SCH ×3 (05:48→21:35)
[2019-04-04 06:00] VITALS: BP 151/75
[2019-04-04 06:45] LABS: HEMATOCRIT 34.1 % (36.0-47.0); HEMOGLOBIN 10.8 g/dl (12.0-15.5); MEAN CORPUSCULAR HEMOGLOBIN 30.2 pg (27.0-33.0); MEAN CORPUSCULAR HGB CONC 31.7 g/dl (32.0-36.5); MEAN CORPUSCULAR VOLUME 95.3 fl (80.0-96.0); PLATELET COUNT, AUTOMATED 270 10^3/uL (150-450); RED BLOOD COUNT 3.58 10^6/uL (4.00-5.40); WHITE BLOOD COUNT 8.9 10^3/uL (4.0-10.0)
[2019-04-04] MEDS: GABAPENTIN 300 MG CAP PO SCH ×3 (08:11→21:34)
[2019-04-04] MEDS: ALLOPURINOL 300 MG TAB PO SCH (08:11)
[2019-04-04] MEDS: LEVEMIR (INSULIN DETEMIR) 1 UNITS/0.01ML SC SCH ×2 (08:12→21:35)
[2019-04-04] MEDS: FUROSEMIDE 40 MG TAB PO SCH (08:12)
[2019-04-04] MEDS: predniSONE 10 MG TAB PO SCH (08:12)
[2019-04-04] MEDS: HumaLOG INSULIN (NovoLOG) PER UNIT SC SCH ×4 (08:13→21:00)
[2019-04-04] MEDS ORDERED: ISOVUE-370 76% 100ML VIAL (Q9967) As Ordered ONE (09:14)
--- NOTE | 2019-04-04 10:08 | REP ---
CT of the abdomen, pelvis are included, with IV contrast for persistent right sided abdominal pain: Comparisons are the CT of the abdomen pelvis dated 04/01/2019, 03/19/2019 and 11/27/2016. Within the visualized lower lung gonzalez. There is atelectasis anteriorly in the visualized portion of the left lower lobe. This is unchanged from 04/01/2019. There are small bilateral pleural effusions. This is a change from all prior studies. The hepatic parenchyma is homogeneous. The gallbladder, pancreas and spleen are normal size and unremarkable. The adrenals are unremarkable. There is a 2.2 cm nonobstructive calculus in the left renal pelvis, unchanged from all prior studies. There is diffuse left renal cortical thinning and mild dilatation of the left renal pelvis and calyces, also unchanged from all prior studies. 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 The right renal pelvis is mildly distended and the right renal calyces are mildly distended. This is a change from 11/27/2016 but it is similar appearance to 04/01/2019 and 03/19/2019. The findings are nonspecific, however, the possibility of stricture at the junction of the right ureter and right renal pelvis is raised. There is no perinephric stranding. The abdominal aorta is unremarkable. The for occasional calcified atheroma, unchanged. There are occasional non enlarged periaortic nodes, unchanged. The visualized bowel and mesentery are unremarkable. Impression: Extrarenal right renal pelvis is mildly dilated. Right renal calyces are mildly dilated. This may represent a stricture at the junction of the right ureter with the right renal pelvis as discussed above. There is a chronic left nonobstructive renal calculus, chronic left renal cortical thinning and chronic mild dilatation of the left renal pelvis and calyces. There is no perinephric stranding on the right on the left. There are new small bilateral pleural effusions. There is atelectasis anteriorly in the visualized portion of the lower lobe of the left lung. This is unchanged from 04/01/2019. Electronically Signed by Sebastian Morocho MD 04/04/2019 09:59 A
[2019-04-04 14:00] VITALS: BP 147/76
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
[2019-04-04] MEDS: FLUCONAZOLE 100 MG TAB PO SCH (21:34)
[2019-04-04 22:00] VITALS: BP 164/76
[2019-04-05] MEDS: IPRATROPIUM 0.5MG/ALBUTEROL 2.5MG INH SOL UD 3ML (DUONEB)(J7620) NEB SCH ×4 (02:00→19:37)
[2019-04-05] MEDS: ANEXSIA, NORCO 7.5MG/325MG TABLET(HYDROCODONE/APAP) PO PRN ×3 (02:17→20:14)
[2019-04-05 06:00] VITALS: BP 149/69
[2019-04-05] MEDS: ALPRAZolam 0.5 MG TAB PO SCH ×3 (06:03→22:05)
[2019-04-05] MEDS: HEPARIN SOD (PORCINE) 5000 UNITS/ML VIAL SQ SCH ×3 (06:03→22:07)
[2019-04-05] MEDS: ALLOPURINOL 300 MG TAB PO SCH (08:20)
[2019-04-05] MEDS: predniSONE 10 MG TAB PO SCH (08:20)
[2019-04-05] MEDS: FUROSEMIDE 40 MG TAB PO SCH (08:20)
[2019-04-05] MEDS: GABAPENTIN 300 MG CAP PO SCH ×3 (08:20→22:05)
[2019-04-05] MEDS: HumaLOG INSULIN (NovoLOG) PER UNIT SC SCH ×4 (08:21→22:07)
[2019-04-05] MEDS: LEVEMIR (INSULIN DETEMIR) 1 UNITS/0.01ML SC SCH ×2 (08:21→22:06)
[2019-04-05] MEDS ORDERED: MAGNESIUM CITRATE 300 ML BTL PO ONE (08:30)
[2019-04-05 09:24] LABS: HEMATOCRIT 36.1 % (36.0-47.0); HEMOGLOBIN 11.4 g/dl (12.0-15.5); MEAN CORPUSCULAR HEMOGLOBIN 29.5 pg (27.0-33.0); MEAN CORPUSCULAR HGB CONC 31.6 g/dl (32.0-36.5); MEAN CORPUSCULAR VOLUME 93.3 fl (80.0-96.0); PLATELET COUNT, AUTOMATED 330 10^3/uL (150-450); RED BLOOD COUNT 3.87 10^6/uL (4.00-5.40); WHITE BLOOD COUNT 8.5 10^3/uL (4.0-10.0)
[2019-04-05 09:43] LABS: BLOOD UREA NITROGEN 18 MG/DL (7-18); CALCIUM LEVEL 9.3 MG/DL (8.8-10.2); CARBON DIOXIDE LEVEL 37 MEQ/L (21-32); CHLORIDE LEVEL 96 MEQ/L (98-107); CREATININE FOR GFR 0.86 MG/DL (0.55-1.30); GLOMERULAR FILTRATION RATE > 60.0 (>45); GLUCOSE, FASTING 191 MG/DL (70-100); POTASSIUM SERUM 4.3 MEQ/L (3.5-5.1); SODIUM LEVEL 137 MEQ/L (136-145)
[2019-04-05] MEDS: BISACODYL 5 MG TAB PO SCH (10:47)
[2019-04-05 14:00] VITALS: BP 145/77
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
[2019-04-05 22:00] VITALS: BP 144/70
[2019-04-05] MEDS: FLUCONAZOLE 100 MG TAB PO SCH (22:05)
[2019-04-06] MEDS: IPRATROPIUM 0.5MG/ALBUTEROL 2.5MG INH SOL UD 3ML (DUONEB)(J7620) NEB SCH ×4 (01:19→17:21)
[2019-04-06] MEDS: ANEXSIA, NORCO 7.5MG/325MG TABLET(HYDROCODONE/APAP) PO PRN ×3 (03:21→17:19)
[2019-04-06] MEDS: IPRATROPIUM 0.5MG/ALBUTEROL 2.5MG INH SOL UD 3ML (DUONEB)(J7620) NEB PRN ×2 (03:50→21:04)
[2019-04-06 06:00] VITALS: BP 123/66
[2019-04-06] MEDS: HEPARIN SOD (PORCINE) 5000 UNITS/ML VIAL SQ SCH ×3 (06:36→21:53)
[2019-04-06] MEDS: ALPRAZolam 0.5 MG TAB PO SCH ×3 (06:36→21:52)
[2019-04-06] MEDS: HumaLOG INSULIN (NovoLOG) PER UNIT SC SCH ×4 (08:08→21:53)
[2019-04-06] MEDS: BISACODYL 5 MG TAB PO SCH (08:08)
[2019-04-06] MEDS: GABAPENTIN 300 MG CAP PO SCH ×3 (08:09→21:52)
[2019-04-06] MEDS: predniSONE 10 MG TAB PO SCH (08:09)
[2019-04-06] MEDS: FUROSEMIDE 40 MG TAB PO SCH (08:09)
[2019-04-06] MEDS: ALLOPURINOL 300 MG TAB PO SCH (08:09)
[2019-04-06] MEDS: LEVEMIR (INSULIN DETEMIR) 1 UNITS/0.01ML SC SCH ×2 (08:09→21:54)
[2019-04-06 14:00] VITALS: BP 134/66
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
[2019-04-06] MEDS: guaiFENesin ER 600 MG TAB PO PRN (17:20)
[2019-04-06] MEDS: LIDOCAINE 5% (LIDODERM) PATCH TD SCH (17:22)
[2019-04-06] MEDS: FLUCONAZOLE 100 MG TAB PO SCH (21:52)
[2019-04-06 22:00] VITALS: BP 114/56
[2019-04-07] MEDS: IPRATROPIUM 0.5MG/ALBUTEROL 2.5MG INH SOL UD 3ML (DUONEB)(J7620) NEB SCH ×4 (01:38→20:44)
[2019-04-07] MEDS: ANEXSIA, NORCO 7.5MG/325MG TABLET(HYDROCODONE/APAP) PO PRN ×2 (02:10→06:16)
[2019-04-07] MEDS: **NOTE PATIENT COMMENT** MISC XX SCH ×2 (05:00→21:35)
[2019-04-07 06:00] VITALS: BP 147/93
[2019-04-07] MEDS: ALPRAZolam 0.5 MG TAB PO SCH ×3 (06:15→22:49)
[2019-04-07] MEDS: HEPARIN SOD (PORCINE) 5000 UNITS/ML VIAL SQ SCH ×3 (06:15→21:35)
[2019-04-07 06:18] LABS: HEMATOCRIT 38.3 % (36.0-47.0); MEAN CORPUSCULAR HEMOGLOBIN 30.1 pg (27.0-33.0); MEAN CORPUSCULAR HGB CONC 31.3 g/dl (32.0-36.5); PLATELET COUNT, AUTOMATED 304 10^3/uL (150-450); RED BLOOD COUNT 3.99 10^6/uL (4.00-5.40); WHITE BLOOD COUNT 11.9 10^3/uL (4.0-10.0)
[2019-04-07] MEDS: predniSONE 10 MG TAB PO SCH (08:28)
[2019-04-07] MEDS: GABAPENTIN 300 MG CAP PO SCH ×3 (08:28→21:34)
[2019-04-07] MEDS: FUROSEMIDE 40 MG TAB PO SCH (08:28)
[2019-04-07] MEDS: BISACODYL 5 MG TAB PO SCH (08:28)
[2019-04-07] MEDS: LIDOCAINE 5% (LIDODERM) PATCH TD SCH (08:28)
[2019-04-07] MEDS: ALLOPURINOL 300 MG TAB PO SCH (08:28)
[2019-04-07] MEDS: LEVEMIR (INSULIN DETEMIR) 1 UNITS/0.01ML SC SCH ×2 (08:29→21:35)
[2019-04-07] MEDS: HumaLOG INSULIN (NovoLOG) PER UNIT SC SCH ×4 (08:29→21:00)
[2019-04-07] MEDS: PERCOCET 5MG/325MG TAB PO PRN ×2 (12:27→21:42)
[2019-04-07 14:00] VITALS: BP 102/59
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
[2019-04-07 16:00] VITALS: BP 146/86
[2019-04-07] MEDS: FLUCONAZOLE 100 MG TAB PO SCH (21:34)
[2019-04-07 22:00] VITALS: BP 113/57
[2019-04-08] MEDS: IPRATROPIUM 0.5MG/ALBUTEROL 2.5MG INH SOL UD 3ML (DUONEB)(J7620) NEB SCH ×4 (01:48→21:15)
[2019-04-08] MEDS: PERCOCET 5MG/325MG TAB PO PRN ×3 (05:31→21:45)
[2019-04-08] MEDS: ALPRAZolam 0.5 MG TAB PO SCH ×3 (05:31→21:44)
[2019-04-08] MEDS: HEPARIN SOD (PORCINE) 5000 UNITS/ML VIAL SQ SCH ×3 (05:33→21:44)
[2019-04-08 06:00] VITALS: BP 154/74
[2019-04-08] MEDS: LIDOCAINE 5% (LIDODERM) PATCH TD SCH ×2 (07:59→13:58)
[2019-04-08] MEDS: FUROSEMIDE 40 MG TAB PO SCH (07:59)
[2019-04-08] MEDS: predniSONE 10 MG TAB PO SCH (07:59)
[2019-04-08] MEDS: ALLOPURINOL 300 MG TAB PO SCH (07:59)
[2019-04-08] MEDS: BISACODYL 5 MG TAB PO SCH (07:59)
[2019-04-08] MEDS: GABAPENTIN 300 MG CAP PO SCH ×3 (07:59→21:43)
[2019-04-08] MEDS: HumaLOG INSULIN (NovoLOG) PER UNIT SC SCH ×4 (08:00→21:00)
[2019-04-08] MEDS: LEVEMIR (INSULIN DETEMIR) 1 UNITS/0.01ML SC SCH ×2 (08:00→21:44)
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
[2019-04-08 14:00] VITALS: BP 147/86
[2019-04-08] MEDS: guaiFENesin ER 600 MG TAB PO PRN (15:08)
[2019-04-08] MEDS: cefTRIAXone SOD 1 GM in D5W MINI-BAG PLUS 50 ML IV SCH (16:50)
[2019-04-08] MEDS: **NOTE PATIENT COMMENT** MISC XX SCH (21:44)
[2019-04-08 22:00] VITALS: BP 151/85
[2019-04-09] MEDS: IPRATROPIUM 0.5MG/ALBUTEROL 2.5MG INH SOL UD 3ML (DUONEB)(J7620) NEB SCH ×4 (02:00→19:42)
[2019-04-09] MEDS: ALPRAZolam 0.5 MG TAB PO SCH ×3 (05:03→21:01)
[2019-04-09] MEDS: HEPARIN SOD (PORCINE) 5000 UNITS/ML VIAL SQ SCH ×3 (05:03→21:02)
[2019-04-09] MEDS: PERCOCET 5MG/325MG TAB PO PRN ×2 (05:59→18:19)
[2019-04-09 06:00] VITALS: BP 144/88
[2019-04-09] MEDS: LEVEMIR (INSULIN DETEMIR) 1 UNITS/0.01ML SC SCH ×2 (08:58→21:00)
[2019-04-09] MEDS: HumaLOG INSULIN (NovoLOG) PER UNIT SC SCH ×4 (08:58→21:01)
[2019-04-09] MEDS: LIDOCAINE 5% (LIDODERM) PATCH TD SCH (08:58)
[2019-04-09] MEDS: FUROSEMIDE 40 MG TAB PO SCH (08:59)
[2019-04-09] MEDS: GABAPENTIN 300 MG CAP PO SCH ×3 (08:59→20:56)
[2019-04-09] MEDS: BISACODYL 5 MG TAB PO SCH (08:59)
[2019-04-09] MEDS: predniSONE 10 MG TAB PO SCH (08:59)
[2019-04-09] MEDS: ALLOPURINOL 300 MG TAB PO SCH (08:59)
[2019-04-09 14:00] VITALS: BP 106/56
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
[2019-04-09] MEDS: cefTRIAXone SOD 1 GM in D5W MINI-BAG PLUS 50 ML IV SCH (17:53)
[2019-04-09] MEDS: **NOTE PATIENT COMMENT** MISC XX SCH (21:03)
[2019-04-09 22:00] VITALS: BP 133/74
[2019-04-10] MEDS: IPRATROPIUM 0.5MG/ALBUTEROL 2.5MG INH SOL UD 3ML (DUONEB)(J7620) NEB SCH ×4 (00:16→19:51)
[2019-04-10] MEDS: PERCOCET 5MG/325MG TAB PO PRN ×3 (02:50→22:03)
[2019-04-10 06:00] VITALS: BP 147/73
[2019-04-10] MEDS: HEPARIN SOD (PORCINE) 5000 UNITS/ML VIAL SQ SCH ×3 (06:00→21:56)
[2019-04-10] MEDS: ALPRAZolam 0.5 MG TAB PO SCH ×3 (06:00→21:54)
[2019-04-10 06:08] LABS: HEMATOCRIT 37.3 % (36.0-47.0); HEMOGLOBIN 11.8 g/dl (12.0-15.5); MEAN CORPUSCULAR HEMOGLOBIN 30.2 pg (27.0-33.0); MEAN CORPUSCULAR HGB CONC 31.6 g/dl (32.0-36.5); MEAN CORPUSCULAR VOLUME 95.4 fl (80.0-96.0); PLATELET COUNT, AUTOMATED 315 10^3/uL (150-450); RED BLOOD COUNT 3.91 10^6/uL (4.00-5.40); WHITE BLOOD COUNT 10.7 10^3/uL (4.0-10.0)
[2019-04-10] MEDS: HumaLOG INSULIN (NovoLOG) PER UNIT SC SCH ×4 (09:52→21:55)
[2019-04-10] MEDS: LEVEMIR (INSULIN DETEMIR) 1 UNITS/0.01ML SC SCH ×2 (09:52→21:55)
[2019-04-10] MEDS: LIDOCAINE 5% (LIDODERM) PATCH TD SCH (09:52)
[2019-04-10] MEDS: BISACODYL 5 MG TAB PO SCH (09:53)
[2019-04-10] MEDS: predniSONE 10 MG TAB PO SCH (09:53)
[2019-04-10] MEDS: GABAPENTIN 300 MG CAP PO SCH ×3 (09:53→21:54)
[2019-04-10] MEDS: ALLOPURINOL 300 MG TAB PO SCH (09:53)
[2019-04-10] MEDS: FUROSEMIDE 40 MG TAB PO SCH (09:54)
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
[2019-04-10] MEDS: cefTRIAXone SOD 1 GM in D5W MINI-BAG PLUS 50 ML IV SCH (17:19)
[2019-04-10] MEDS: **NOTE PATIENT COMMENT** MISC XX SCH (21:56)
[2019-04-10 22:00] VITALS: BP 124/68
[2019-04-11] MEDS: IPRATROPIUM 0.5MG/ALBUTEROL 2.5MG INH SOL UD 3ML (DUONEB)(J7620) NEB SCH ×4 (02:00→20:09)
[2019-04-11 06:00] VITALS: BP 138/70
[2019-04-11] MEDS: HEPARIN SOD (PORCINE) 5000 UNITS/ML VIAL SQ SCH ×2 (06:19→14:25)
[2019-04-11] MEDS: ALPRAZolam 0.5 MG TAB PO SCH ×3 (06:19→21:34)
[2019-04-11] MEDS: PERCOCET 5MG/325MG TAB PO PRN ×2 (06:21→14:25)
[2019-04-11] MEDS: BISACODYL 5 MG TAB PO SCH (08:10)
[2019-04-11] MEDS: FUROSEMIDE 40 MG TAB PO SCH (08:10)
[2019-04-11] MEDS: HumaLOG INSULIN (NovoLOG) PER UNIT SC SCH ×4 (08:10→21:34)
[2019-04-11] MEDS: LEVEMIR (INSULIN DETEMIR) 1 UNITS/0.01ML SC SCH ×2 (08:10→21:34)
[2019-04-11] MEDS: LIDOCAINE 5% (LIDODERM) PATCH TD SCH (08:11)
[2019-04-11] MEDS: predniSONE 10 MG TAB PO SCH (08:11)
[2019-04-11] MEDS: GABAPENTIN 300 MG CAP PO SCH ×3 (08:11→21:33)
[2019-04-11] MEDS: ALLOPURINOL 300 MG TAB PO SCH (08:11)
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
[2019-04-11 14:00] VITALS: BP 139/84
--- NOTE | 2019-04-11 16:27 | CR ---
DATE OF CONSULTATION: 04/11/2019 REFERRING PHYSICIAN: Jacky Narvaez MD CHIEF COMPLAINT: 1. Right low back pain. 2. Right lower quadrant abdominal pain. 3. Right groin pain. HISTORY OF PRESENT ILLNESS Allison is a 63-year-old female who was admitted on April 01 for severe back pain and abdominal pain. History of left nephrolithiasis with a large left kidney stone. Was receiving care by primary care for chronic hip pain and is on hydrocodone 7.5 mg/325 four times a day. Today states pain medicine is helping a little bit for a short time. Currently taking oxycodone 10 mg three to four times a day. Rating pain level as a 7/10. Pain is aggravated by walking. She was medicated with oxycodone 10 mg approximately 45 minutes prior to interview. Accompanied in her room with her significant other. Although the patient is a vague historian, it sounds like this pain began several months ago, but has progressively gotten worse over the past couple of months. The patient is mentioning the fact that she has a hernia. History of left-sided hydronephrosis, but chief area of pain is right low back and right leg. States she has chronic bilateral lower extremity pain and a history of diabetic neuropathy. PAST MEDICAL HISTORY: Large left staghorn nephrolithiasis times 3 years, left hydronephrosis, chronic obstructive pulmonary disease (COPD), on home Oxygen, diastolic congestive heart failure 07/2018, type 2 diabetes mellitus on insulin, history of extended spectrum beta-lactamase (ESBL) urinary tract infection (UTI), chronic bacteriuria, history of left thigh abscess, anaerobic. PAST SURGICAL HISTORY: Hysterectomy, SOCIAL HISTORY: Patient lives with her boyfriend in private house. 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 Quit smoking years ago. Denies alcohol use. FAMILY HISTORY: Diabetes in grandmother. REVIEW OF SYSTEMS: Reporting some constipation issues. Otherwise as stated in the HPI. PHYSICAL EXAMINATION Sitting up at bedside. Awake, alert. Vital signs: 97, 99.5, 16, BP 139/84, O2 sats 93. Cardiac: S1, S2. Normal rate and rhythm. Respiratory: Lung sounds clear. Respirations nonlabored. Inspection of spine - tenderness specifically noted over right sacroiliac joint region. Muscle strength testing slightly weak, bilateral, left greater than right. Reporting normal sensation to light touch lower extremities. No edema or swelling noted. DIAGNOSTIC DATA: IMAGING: Lumbar spine MRI 04/08/2019 - reviewed. ASSESSMENT: 1. Right sacroiliitis. 2. Lumbar radiculopathy. PLAN Offered right SIJ injection. The patient is receptive. Recommend stopping oxycodone 5/325 two tablets as needed. Try MS-IR 15 mg half a tablet every 4 hours as needed. Consider trial of Soma 350 mg twice a day. Continue gabapentin 300 three times a day. We will call patient to be brought over for procedure on 04/12 - right sacral iliac steroid block. Thank you for allowing us to participate in the care of your patient. If you have any questions or concerns please do not hesitate to contact me. Sincerely, LOUIE Nunez [facility]
[2019-04-11] MEDS: cefTRIAXone SOD 1 GM in D5W MINI-BAG PLUS 50 ML IV SCH (17:48)
[2019-04-11] MEDS ORDERED: PILL CUTTER 1 EACH XX PRN (18:45)
[2019-04-11] MEDS: **NOTE PATIENT COMMENT** MISC XX SCH (21:00)
[2019-04-11] MEDS: CARISOPRODOL 350 MG TAB PO SCH (21:34)
[2019-04-11 22:00] VITALS: BP 120/60
[2019-04-12] MEDS: IPRATROPIUM 0.5MG/ALBUTEROL 2.5MG INH SOL UD 3ML (DUONEB)(J7620) NEB SCH ×4 (02:00→20:13)
[2019-04-12] MEDS: MORPHINE 30 MG TAB **MSIR PO PRN ×2 (02:33→08:10)
[2019-04-12] MEDS ORDERED: MORPHINE 4 MG/ML 1ML VIAL/SYRINGE (J2270) IV ONE (03:30)
[2019-04-12 06:00] VITALS: BP 138/60
[2019-04-12] MEDS: ALPRAZolam 0.5 MG TAB PO SCH ×3 (06:01→22:13)
[2019-04-12] MEDS: HumaLOG INSULIN (NovoLOG) PER UNIT SC SCH ×4 (07:30→22:14)
[2019-04-12] MEDS: ALLOPURINOL 300 MG TAB PO SCH (08:10)
[2019-04-12] MEDS: predniSONE 10 MG TAB PO SCH (08:11)
[2019-04-12] MEDS: FUROSEMIDE 40 MG TAB PO SCH (08:11)
[2019-04-12] MEDS: CARISOPRODOL 350 MG TAB PO SCH ×2 (08:11→22:14)
[2019-04-12] MEDS: GABAPENTIN 300 MG CAP PO SCH ×3 (08:11→22:13)
[2019-04-12] MEDS: BISACODYL 5 MG TAB PO SCH (08:12)
[2019-04-12] MEDS: LEVEMIR (INSULIN DETEMIR) 1 UNITS/0.01ML SC SCH ×2 (08:12→22:14)
[2019-04-12] MEDS: LIDOCAINE 5% (LIDODERM) PATCH TD SCH (08:13)
[2019-04-12] MEDS ORDERED: oxyCODONE 5MG TAB As Ordered ONE (13:52)
[2019-04-12] MEDS ORDERED: BUPIVACAINE HCL 0.25% 30 ML VIAL As Ordered ONE (14:19)
[2019-04-12] MEDS ORDERED: LIDOCAINE 1% SDV INJ 30 ML VIAL As Ordered ONE (14:19)
[2019-04-12] MEDS ORDERED: TRIAMCINOLONE ACETONIDE SUSP 40 MG/ML VIAL (J3301) As Ordered ONE (14:19)
[2019-04-12] MEDS ORDERED: ISOVUE-M 300 61% 15ML VIAL (Q9967) As Ordered ONE (14:19)
[2019-04-12 16:45] VITALS: BP 121/60
--- NOTE | 2019-04-12 16:51 | REP ---
Right SI joint series: Three views. History: Right SI joint block for pain. 23 seconds of fluoroscopy time is reported. Findings: A sequence of three last image hold fluoroscopically obtained spot radiographs of the right SI joint document needle position associated with SI joint injection. Electronically Signed by Basil Lucas MD 04/13/2019 07:56 A
[2019-04-12] MEDS: cefTRIAXone SOD 1 GM in D5W MINI-BAG PLUS 50 ML IV SCH (17:43)
[2019-04-12] MEDS: oxyCODONE 5MG TAB PO PRN (19:13)
[2019-04-12] MEDS: **NOTE PATIENT COMMENT** MISC XX SCH (21:00)
[2019-04-12 22:00] VITALS: BP 134/72
--- NOTE | 2019-04-12 22:05 | IPNPDOC ---
Subjective Date Seen The patient was seen on 04/12/19. Subjective Chief Complaint/HPI 63-year-old female with history of diastolic CHF, COPD, kidney stones, and type 2 diabetes. Patient was admitted with severe pain in back and legs. She was dilated by urology who felt the kidney stone was not the cause of her symptoms appreciate pain management consult yesterday. Patient, however, has not tolerating morphine. She reports that it gives her headache. She underwent injection today for sacroiliitis General: Reports: Normal Appetite; Denies: Chills, Night Sweats, Fatigue, Malaise Eyes: Denies: Pain, Vision change ENT: Reports: Head Aches Skin: Denies: Rash, Lesions, Breakdown Pulmonary: Denies: Dyspnea, Cough Cardiovascular: Denies: Chest Pain, Palpitations, Orthopnea, Paroxysmal Noc. Dyspnea, Lt Headedness Gastrointestinal: Denies: Nausea, Vomiting, Abdominal Pain, Diarrhea, Constipation Genitourinary: Denies: Dysuria, Frequency, Incontinence, Retention Hematologic: Denies: Bruising, Bleeding Excessively Musculoskeletal: Reports: Back Pain, Leg Pain Neurological: Denies: Weakness, Numbness, Change in speech, Confusion Psych: Reports: Mood Normal; Denies: Depression, Memory Issues Objective Physical Examination General Exam: Positive: Alert, No Acute Distress Eye Exam: Positive: PERRLA, Conjunctiva & lids normal, EOMI; Negative: Sclera icteric ENT Exam: Positive: Atraumatic, Mucous membr. moist/pink, Pharynx Normal Neck Exam: Positive: Supple; Negative: JVD, thyromegaly Chest Exam: Positive: Clear to auscultation, Normal air movement Heart Exam: Positive: Rate Normal, Regular Rhythm, Normal S1, Normal S2; Negative: Murmurs, Rubs Abdomen Exam: Positive: Normal bowel sounds, Soft; Negative: Tenderness, Hepatospenomegaly Extremity Exam: Positive: Normal pulses; Negative: Clubbing, Cyanosis, Edema Skin Exam: Positive: Nl turgor and temperature; Negative: Rash, Breakdown Neuro Exam: Positive: Normal Gait, Normal Speech, Cranial Nerves 3-12 NL, Reflexes 2+ Psych Exam: Positive: Mental status NL, Mood NL, Oriented x 3 Assessment /Plan Assessment 63-year-old female presenting with back and leg pain. [place] to be due to sacroiliitis. Started on Soma and morphine yesterday. Patient reports morphine is giving her headache. Will replace morphine with a reduced dose of oxycodone. Received steroid injection today. Plan for DC home tomorrow. Kidney stone. Outpatient urology follow-up. Diabetes. Diabetic diet. Fingersticks before meals and at bedtime Continue sliding scale coverage Plan/VTE VTE Prophylaxis Ordered?: Yes VS, I&O, 24H, Fishbone Vital Signs/I&O Vital Signs Date Time Temp Pulse Resp B/P (MAP) Pulse Ox O2 Delivery O2 Flow Rate FiO2 04/12/19 19:43 18 04/12/19 16:45 96.8 90 121/60 (80) 95 2.0 I&O- Last 24 Hours up to 6 AM 04/12/19 06:00 Intake Total 1880 ml Output Total 1360 ml Balance 520 ml Laboratory Data 24H LABS Laboratory Tests 2 04/12/19 07:36: Bedside Glucose (Misc Panel) 100 04/12/19 12:00: Bedside Glucose (Misc Panel) 188H 04/12/19 16:26: Bedside Glucose (Misc Panel) 271H 04/12/19 20:42: Bedside Glucose (Misc Panel) 312H BENNY PERKINS MD Apr 12, 2019 22:05
[2019-04-13] MEDS: IPRATROPIUM 0.5MG/ALBUTEROL 2.5MG INH SOL UD 3ML (DUONEB)(J7620) NEB SCH ×4 (02:00→20:04)
[2019-04-13] MEDS: oxyCODONE 5MG TAB PO PRN ×3 (04:18→15:11)
[2019-04-13 06:00] VITALS: BP 136/76
[2019-04-13] MEDS: ALPRAZolam 0.5 MG TAB PO SCH ×3 (06:15→22:05)
[2019-04-13 06:48] LABS: HEMATOCRIT 38.8 % (36.0-47.0); HEMOGLOBIN 12.3 g/dl (12.0-15.5); MEAN CORPUSCULAR HEMOGLOBIN 30.3 pg (27.0-33.0); MEAN CORPUSCULAR HGB CONC 31.7 g/dl (32.0-36.5); MEAN CORPUSCULAR VOLUME 95.6 fl (80.0-96.0); PLATELET COUNT, AUTOMATED 337 10^3/uL (150-450); RED BLOOD COUNT 4.06 10^6/uL (4.00-5.40); WHITE BLOOD COUNT 9.7 10^3/uL (4.0-10.0)
[2019-04-13] MEDS: LIDOCAINE 5% (LIDODERM) PATCH TD SCH (09:46)
[2019-04-13] MEDS: BISACODYL 5 MG TAB PO SCH (09:46)
[2019-04-13] MEDS: CARISOPRODOL 350 MG TAB PO SCH ×2 (09:46→21:14)
[2019-04-13] MEDS: FUROSEMIDE 40 MG TAB PO SCH (09:47)
[2019-04-13] MEDS: GABAPENTIN 300 MG CAP PO SCH ×3 (09:48→21:14)
[2019-04-13] MEDS: ALLOPURINOL 300 MG TAB PO SCH (09:48)
[2019-04-13] MEDS: predniSONE 10 MG TAB PO SCH (09:48)
[2019-04-13] MEDS: HumaLOG INSULIN (NovoLOG) PER UNIT SC SCH ×4 (09:50→21:14)
[2019-04-13] MEDS: LEVEMIR (INSULIN DETEMIR) 1 UNITS/0.01ML SC SCH ×2 (09:50→21:15)
[2019-04-13] MEDS ORDERED: LACTULOSE 20 GM/30 ML SYRUP UD PO ONE (12:00)
[2019-04-13 14:00] VITALS: BP 127/60
[2019-04-13] MEDS: cefTRIAXone SOD 1 GM in D5W MINI-BAG PLUS 50 ML IV SCH (17:02)
[2019-04-13] MEDS ORDERED: FLEET ENEMA PR ONE (19:45)
--- NOTE | 2019-04-13 20:23 | IPNPDOC ---
Subjective Date Seen The patient was seen on 04/13/19. Subjective Chief Complaint/HPI 63-year-old female with history of diastolic CHF, COPD, kidney stones, and type 2 diabetes. Patient was admitted with severe pain in back and legs. She was evaluated by urology who felt the kidney stone was not the cause of her symptoms. Then seen by pain mgmt and underwent a LESI for sacroileitis. today pt reports some improvement. Still has some pain. however is mostly complaining of severe constipation General: Reports: Normal Appetite; Denies: Chills, Night Sweats, Fatigue, Malaise Constitutional: Denies: Chills, Fever, Night Sweats Eyes: Denies: Pain, Vision change ENT: Denies: Head Aches, Ear Pain, Dysphagia Skin: Denies: Rash, Lesions, Breakdown Pulmonary: Denies: Dyspnea, Cough Cardiovascular: Denies: Chest Pain, Palpitations, Orthopnea, Paroxysmal Noc. Dyspnea, Lt Headedness Gastrointestinal: Reports: Abdominal Pain, Constipation Genitourinary: Denies: Dysuria, Frequency, Incontinence, Retention Hematologic: Denies: Bruising, Bleeding Excessively Musculoskeletal: Reports: Leg Pain Neurological: Denies: Weakness, Numbness, Change in speech, Confusion Psych: Reports: Mood Normal; Denies: Depression, Memory Issues Objective Physical Examination General Exam: Positive: Alert, No Acute Distress Eye Exam: Positive: PERRLA, Conjunctiva & lids normal, EOMI; Negative: Sclera icteric ENT Exam: Positive: Atraumatic, Mucous membr. moist/pink, Pharynx Normal Neck Exam: Positive: Supple; Negative: JVD, thyromegaly Chest Exam: Positive: Clear to auscultation, Normal air movement Heart Exam: Positive: Rate Normal, Regular Rhythm, Normal S1, Normal S2; Negative: Murmurs, Rubs Abdomen Exam: Positive: Normal bowel sounds, Soft; Negative: Tenderness, Hepatospenomegaly Extremity Exam: Positive: Normal pulses; Negative: Clubbing, Cyanosis, Edema Skin Exam: Positive: Nl turgor and temperature; Negative: Rash, Breakdown Neuro Exam: Positive: Normal Gait, Normal Speech, Cranial Nerves 3-12 NL, Reflexes 2+ Psych Exam: Positive: Mental status NL, Mood NL, Oriented x 3 Assessment /Plan Assessment 63-year-old female presenting with back and leg pain. [place] to be due to sacroiliitis. on Soma and oxycodone Received steroid injection Plan for DC home tomorrow. Kidney stone. Outpatient urology follow-up. Diabetes. Diabetic diet. Fingersticks before meals and at bedtime Continue sliding scale coverage Constipation already on several laxatives without improvement given a dose of lactulose without relief enema ordered may need to consider movantik in the future Plan/VTE VTE Prophylaxis Ordered?: Yes VS, I&O, 24H, Fishbone Vital Signs/I&O Vital Signs Date Time Temp Pulse Resp B/P (MAP) Pulse Ox O2 Delivery O2 Flow Rate FiO2 04/13/19 16:07 18 04/13/19 14:00 96.9 82 127/60 (82) 96 2.0 I&O- Last 24 Hours up to 6 AM 04/13/19 06:00 Intake Total 1840 ml Output Total 1800 ml Balance 40 ml Laboratory Data 24H LABS Laboratory Tests 2 04/12/19 20:42: Bedside Glucose (Misc Panel) 312H 04/13/19 05:54: Nucleated Red Blood Cells % (auto) 0.0 04/13/19 06:05: Bedside Glucose (Misc Panel) 188H 04/13/19 11:17: Bedside Glucose (Misc Panel) 207H 04/13/19 16:29: Bedside Glucose (Misc Panel) 345H CBC/BMP Laboratory Tests 04/13/19 05:54 Red Blood Count 4.06, Mean Corpuscular Volume 95.6, Mean Corpuscular Hemoglobin 30.3, Mean Corpuscular Hemoglobin Concent 31.7 L, Red Cell Distribution Width 13.2 BENNY PERKINS MD Apr 13, 2019 20:23
[2019-04-13] MEDS: **NOTE PATIENT COMMENT** MISC XX SCH (21:15)
[2019-04-13 22:00] VITALS: BP 129/62
[2019-04-14] MEDS: IPRATROPIUM 0.5MG/ALBUTEROL 2.5MG INH SOL UD 3ML (DUONEB)(J7620) NEB SCH ×4 (02:00→20:12)
[2019-04-14] MEDS: oxyCODONE 5MG TAB PO PRN ×3 (03:52→19:55)
[2019-04-14] MEDS: ALPRAZolam 0.5 MG TAB PO SCH ×3 (05:31→22:25)
[2019-04-14 06:00] VITALS: BP 131/69
[2019-04-14] MEDS ORDERED: predniSONE 20 MG TAB PO ONE (08:30)
[2019-04-14] MEDS: LIDOCAINE 5% (LIDODERM) PATCH TD SCH (09:19)
[2019-04-14] MEDS: HumaLOG INSULIN (NovoLOG) PER UNIT SC SCH ×4 (09:21→20:48)
[2019-04-14] MEDS: LEVEMIR (INSULIN DETEMIR) 1 UNITS/0.01ML SC SCH ×2 (09:21→20:48)
[2019-04-14] MEDS: CARISOPRODOL 350 MG TAB PO SCH ×2 (09:22→20:47)
[2019-04-14] MEDS: GABAPENTIN 300 MG CAP PO SCH ×3 (09:22→20:48)
[2019-04-14] MEDS: BISACODYL 5 MG TAB PO SCH (09:23)
[2019-04-14] MEDS: FUROSEMIDE 40 MG TAB PO SCH (09:23)
[2019-04-14] MEDS: ALLOPURINOL 300 MG TAB PO SCH (09:23)
[2019-04-14 14:00] VITALS: BP 122/66
--- NOTE | 2019-04-14 20:32 | IPNPDOC ---
Subjective Date Seen The patient was seen on 04/14/19. Subjective Chief Complaint/HPI 63-year-old female with history of diastolic CHF, COPD, kidney stones, and type 2 diabetes. Patient was admitted with severe pain in back and legs. She was evaluated by urology who felt the kidney stone was not the cause of her s ymptoms. Then seen by pain mgmt and underwent a LESI for sacroileitis. still having right sided pain, constipation relieved, now also complaining of "gout" in her left small toe a 10pt ROS was performed all negative with the exception of what is documented above in hpi Objective Physical Examination General Exam: Positive: Alert, No Acute Distress Eye Exam: Positive: PERRLA, Conjunctiva & lids normal, EOMI; Negative: Sclera icteric ENT Exam: Positive: Atraumatic, Mucous membr. moist/pink, Pharynx Normal Neck Exam: Positive: Supple; Negative: JVD, thyromegaly Chest Exam: Positive: Clear to auscultation, Normal air movement Heart Exam: Positive: Rate Normal, Regular Rhythm, Normal S1, Normal S2; Negative: Murmurs, Rubs Abdomen Exam: Positive: Normal bowel sounds, Soft; Negative: Tenderness, Hepatospenomegaly Extremity Exam: Positive: Normal pulses; Negative: Clubbing, Cyanosis, Edema Skin Exam: Positive: Nl turgor and temperature; Negative: Rash, Breakdown Neuro Exam: Positive: Normal Gait, Normal Speech, Cranial Nerves 3-12 NL, Reflexes 2+ Psych Exam: Positive: Mental status NL, Mood NL, Oriented x 3 Assessment /Plan Assessment 63-year-old female presenting with back and leg pain. [place] to be due to sacroiliitis. on Soma and oxycodone Received steroid injection still having pain, seems to be muscle spasm Kidney stone. Outpatient urology follow-up. Diabetes. Diabetic diet. Fingersticks before meals and at bedtime Continue sliding scale coverage Constipation resolved copd on chronic steroids bronchodilators "gout" I do not see inflammation in the toe however will give her a one time increased dose of steroids that may also help with her back pain Plan/VTE VTE Prophylaxis Ordered?: Yes VS, I&O, 24H, Fishbone Vital Signs/I&O Vital Signs Date Time Temp Pulse Resp B/P (MAP) Pulse Ox O2 Delivery O2 Flow Rate FiO2 04/14/19 19:55 16 2.0 04/14/19 14:00 96.5 86 122/66 (84) 92 I&O- Last 24 Hours up to 6 AM 04/14/19 06:00 Intake Total 1580 ml Output Total 500 ml Balance 1080 ml Laboratory Data 24H LABS Laboratory Tests 2 04/14/19 06:01: Bedside Glucose (Misc Panel) 199H BENNY PERKINS MD Apr 14, 2019 20:32
[2019-04-14] MEDS: **NOTE PATIENT COMMENT** MISC XX SCH (20:48)
[2019-04-14 22:00] VITALS: BP 152/74
[2019-04-15] MEDS: IPRATROPIUM 0.5MG/ALBUTEROL 2.5MG INH SOL UD 3ML (DUONEB)(J7620) NEB SCH ×2 (02:00→07:50)
[2019-04-15] MEDS: oxyCODONE 5MG TAB PO PRN ×2 (03:06→08:56)
[2019-04-15] MEDS: IPRATROPIUM 0.5MG/ALBUTEROL 2.5MG INH SOL UD 3ML (DUONEB)(J7620) NEB PRN (04:13)
[2019-04-15] MEDS: ALPRAZolam 0.5 MG TAB PO SCH (05:23)
[2019-04-15 06:00] VITALS: BP 140/67
[2019-04-15] MEDS: LIDOCAINE 5% (LIDODERM) PATCH TD SCH (08:54)
[2019-04-15] MEDS: ALLOPURINOL 300 MG TAB PO SCH (08:55)
[2019-04-15] MEDS: BISACODYL 5 MG TAB PO SCH (08:55)
[2019-04-15] MEDS: LEVEMIR (INSULIN DETEMIR) 1 UNITS/0.01ML SC SCH (08:55)
[2019-04-15] MEDS: HumaLOG INSULIN (NovoLOG) PER UNIT SC SCH (08:55)
[2019-04-15] MEDS: GABAPENTIN 300 MG CAP PO SCH (08:56)
[2019-04-15] MEDS: CARISOPRODOL 350 MG TAB PO SCH (08:56)
[2019-04-15] MEDS: FUROSEMIDE 40 MG TAB PO SCH (08:57)
[2019-04-15] MEDS ORDERED: predniSONE 10 MG TAB PO SCH (09:00)
--- NOTE | 2019-04-18 14:38 | DS.PDOC ---
Discharge Summary General Date of Admission Apr 01, 2019 at 15:54 Date of Discharge 04.15.19 Discharge Summary PROCEDURES PERFORMED DURING STAY: [None]. ADMITTING DIAGNOSES: 1. kidney stone 2. back pain DISCHARGE DIAGNOSES: 1. kidney stone 2. back pain 3. sacral ileitis 4. gout 5. constipation COMPLICATIONS/CHIEF COMPLAINT: Pyelonephritis. HISTORY OF PRESENT ILLNESS: Pt is 63 y/o F with PMHx significant for large left partial staghorn nephrolithiasis diagnosed 3 years ago with Hx of ESBL in urine 2016 with frequent admissions in the past for same, pt f/u with urologist in [place] with no available urology records. Dr. Arizmendi from urology service was consulted during previous admission who recommended percutaneous intervention in case of deterioration. Upon my encounter pt is in severe distress due to back pain radiating to inguinal area. Denies any fever, chills. Reports dysuria and frequency. Pt states she has been having flank pain, generalized weakness and fatigue for the past three weeks. Her pain exacerbated last night. Denies any dyspnea, CP or lightheadedness. Reports nausea and vomiting no change in BM HOSPITAL COURSE: Pt was admitted, started on empiric abx for possible complex uti. She was evaluated by urology who felt that her chronic kidney stone was not causing her symptoms. She had multiple imaging modalities of her back without clear etiology. She was seen by pain management who adjusted her meds and performed a sacral nerve injection for possible sacral ileitis. She continued to complain of intractable pain in her back radiating to her groin. She was given several different treatment modalities without relief. She then began complaining of severe constipation. She was given multiple laxatives without improvement. Finally was relieved with an enema. She then began complaining of pain in her left fifth toe that she referred to as gout. Given she was on chronic steroids she was given an increased dose for a day. She felt much better and was discharged home. DISCHARGE MEDICATIONS: Please see below. ALLERGIES: Please see below. PHYSICAL EXAMINATION ON DISCHARGE: VITAL SIGNS: Please see below. General Exam: Positive: Alert, No Acute Distress Eye Exam: Positive: PERRLA, Conjunctiva & lids normal, EOMI; Negative: Sclera icteric ENT Exam: Positive: Atraumatic, Mucous membr. moist/pink, Pharynx Normal Neck Exam: Positive: Supple; Negative: JVD, thyromegaly Chest Exam: Positive: Clear to auscultation, Normal air movement Heart Exam: Positive: Rate Normal, Regular Rhythm, Normal S1, Normal S2; Negative: Murmurs, Rubs Abdomen Exam: Positive: Normal bowel sounds, Soft; Negative: Tenderness, Hepatospenomegaly Extremity Exam: Positive: Normal pulses; Negative: Clubbing, Cyanosis, Edema Skin Exam: Positive: Nl turgor and temperature; Negative: Rash, Breakdown Neuro Exam: Positive: Normal Gait, Normal Speech, Cranial Nerves 3-12 NL, Reflexes 2+ Psych Exam: Positive: Mental status NL, Mood NL, Oriented x 3 LABORATORY DATA: Please see below. ACTIVITY: [As tolerated]. DIET: diabetic DISPOSITION: Home, Self-Care. DISCHARGE CONDITION: [Stable]. Vital Signs/I&Os Vital Signs Date Time Temp Pulse Resp B/P (MAP) Pulse Ox O2 Delivery O2 Flow Rate FiO2 04/15/19 09:26 18 04/15/19 08:00 2.0 04/15/19 06:00 96.9 74 140/67 (91) 95 Discharge Medications Scheduled Albuterol Sulf (Albuterol Sulfate) 2.5 Mg/3 Ml Nebu, 2.5 MG INH QID, (Reported) Allopurinol (Zyloprim) 300 Mg Tablet, 300 MG PO DAILY, (Reported) Ampicillin Trihydrate (Ampicillin Trihydrate) 500 Mg Capsule, 500 MG PO QHS, (Reported) Furosemide (Furosemide) 40 Mg Tab, 80 MG PO DAILY, (Reported) Gabapentin (Gabapentin) 300 Mg Cap, 300 MG PO TID, (Reported) Insulin Glargine,Hum.rec.anlog (Basaglar Kwikpen U-100) 100 Unit/1 Ml Insuln.pen, 15 UNIT SC BID, (Reported) Metformin HCl (Metformin HCl) 1,000 Mg Tab, 1,000 MG PO BID, (Reported) Potassium Chloride (Potassium Chloride) 8 Meq Tab, 16 MEQ PO DAILY, (Reported) Prednisone (Prednisone) 10 Mg Tab, 10 MG PO DAILY, (Reported) Scheduled PRN Alprazolam (Alprazolam) 1 Mg Tab, 1 MG PO QID PRN for ANXIETY, (Reported) Hydrocodone/Acetaminophen ([place] 7.5-325 Tablet) 1 Tab Tab, 1 TAB PO QID PRN for PAIN, (Reported) Tizanidine HCl (Tizanidine HCl) 4 Mg Tablet, 4 MG PO QID PRN for MUSCLE SPASMS, (Reported) Allergies Coded Allergies: No Known Allergies (Unverified , 01/20/14) BENNY PERKINS MD Apr 18, 2019 14:38
== END 2019-04-15 11:07 | disposition home or self-care (01) | DRG 465 ==
LOC: M ED 09:22 → M ED INP 15:54 → M MSPAV 16:59
PROVIDERS: ADMIT Hospitalist; ATTEND Hospitalist
DX: N13.2 Hydronephrosis with renal and ureteral calculous obstruction (principal); I50.32 Chronic diastolic (congestive) heart failure; J44.9 Chronic obstructive pulmonary disease, unspecified; E11.9 Type 2 diabetes mellitus without complications; Z79.4 Long term (current) use of insulin; Z87.891 Personal history of nicotine dependence; F41.9 Anxiety disorder, unspecified; F32.9 Major depressive disorder, single episode, unspecified; R91.1 Solitary pulmonary nodule; Z79.899 Other long term (current) drug therapy; K57.30 Diverticulosis of large intestine without perforation or abscess without bleeding; M46.1 Sacroiliitis, not elsewhere classified; M10.9 Gout, unspecified; K59.00 Constipation, unspecified; N10 Acute pyelonephritis

== ENCOUNTER → 2019-04-12 | Outpatient (CLI) | payer OTHER ==
[~2019-04-12] MED LIST changes: +BUPR1TAB52 PO; +CIPR-249 PO; +DICY20TA11; +DOXY100C37; +FLUO20CA20 PO; -FLUO20CA8 PO; +HYDR-3719; +HYDR-4517 PO; +KEFL500C17 PO; +LEVOTAB10 PO; +MELO7.5T35 PO; +NICO14DI31 TD; +PERCOCET PO; -TRAZ10TA PO; +TRAZ1TAB12 PO; +VICO7.5T12 PO; +ZYLO300T6 PO
--- NOTE | 2019-04-18 23:45 | ECWPNPC ---
PATIENT NAME: MAN KANG : 1955 GENDER: FEMALE VISIT DATE: 04/12/2019 DISCHARGE DATE: 04/12/1938 VISIT LOCKED DATE TIME: PHYSICIAN: LAVON DICKENS MD RESOURCE: LAVON DICKENS MD REASON FOR APPOINTMENT 1. RIGHT SIJ INPT ALLERGIES NO[ALLERGIES VERIFIED] VITAL SIGNS WT 187 LBS, HT 62 IN, BMI 34.20 INDEX, BP 126/75 MM HG, HR 93 /MIN, RR 18 /MIN, TEMP 97.6 F, OXYGEN SAT % 96%, BLOOD GLUCOSE LEVEL 188 @ 1300, SAFE IN ENV? (Y/N) YES, NA INITIALS SC 13:42, REVIEWED BY: JS. ASSESSMENTS SACROILIITIS, NOT ELSEWHERE CLASSIFIED - M46.1 (PRIMARY) PROCEDURES PN SI PRE PROCEDURE DIAGNOSIS SACROILIITIS, SACROILIAC JOINT DYSFUNCTION POST PROCEDURE DIAGNOSIS SACROILIITIS, SACROILIAC JOINT DYSFUNCTION PROCEDURE RIGHT SACROILIAC JOINT BLOCK SURGEON DR. LAVON DICKENS AIRPLANE NAVIGATOR NONE ANESTHESIA LOCAL PRE PROCEDURE NOTE PATIENT WITH HISTORY OF CHRONIC LOW BACK PAIN. I EVALUATED THE PATIENT AND REVIEWED THE CHART. I WENT OVER THE RISKS, ALTERNATIVES, AND BENEFITS ASSOCIATED WITH THIS PROCEDURE. THE PATIENT WOULD LIKE TO PROCEED AND GAVE CONSENT TO PERFORM THE PROCEDURE. THE PATIENT DENIES UNEXPLAINABLE WEIGHT LOSS, FEVER, CHILLS, OR NEW CHANGES IN URINARY OR BOWEL CONTROL DESCRIPTION OF PROCEDURE THE PATIENT WAS BROUGHT TO THE PROCEDURE ROOM AND PLACED IN THE PRONE POSITION. THE LUMBOSACRAL AREA WAS CLEANED WITH CHLORAPREP SOLUTION AND DRAPED ASEPTICALLY. THE PROCEDURE WAS DONE UNDER STERILE CONDITIONS. I CHECKED LATERALITY AND THE LEVEL WHERE THE PROCEDURE WAS GOING TO BE PERFORMED WITH THE PATIENT AND THE SUPPORTING STAFF AT THE MOMENT OF THE TIME OUT IN THE PROCEDURE ROOM. UNDER FLUOROSCOPIC GUIDANCE, TARGET POINT WAS SELECTED AT THE LOWER BORDER OF THE RIGHT SACROILIAC JOINT. TARGET POINT WAS SELECTED AFTER MEDIAL ROTATION AND TILT OF THE MAGNIFIER OF THE C-ARM. LIDOCAINE WAS USED TO NUMB THE SKIN AND SUBCUTANEOUS TISSUE BELOW IT. A SPINAL NEEDLE, 22-GAUGE, WAS ADVANCED UNDER FLUOROSCOPIC GUIDANCE AND FOLLOWING PATIENT FEEDBACK UNTIL THE TARGET AREA WAS TOUCHED. THE POSITION OF THE NEEDLE WAS VERIFIED WITH AP AND LATERAL VIEWS. AFTER PROPER POSITION OF THE NEEDLE WAS ACHIEVED, ISOVUE M DYE 30%, 0.25 ML, WAS INJECTED SHOWING SPREAD OF THE DYE. THEN, A SOLUTION OF 20 MG OF KENALOG WAS INJECTED IN RIGHT JOINT WITH 3 ML OF BUPIVACAINE 0.125%. THERE WAS NO EVIDENCE OF BLOOD, PARESTHESIA OR CEREBROSPINAL FLUID DURING THE PROCEDURE. THE PATIENT WAS SENT TO THE RECOVERY ROOM. THE PATIENT WAS MOVING THE EXTREMITIES AND DOING WELL. THERE WAS NO COMPLICATION DURING THE PROCEDURE. FLUOROSCOPY TIME WAS 23 SECONDS POST PROCEDURE NOTE THE PATIENT WILL BE SEEN IN A FOLLOW UP IN THE NEXT FEW WEEKS. INSTRUCTIONS WERE GIVEN, QUESTIONS WERE ANSWERED, AND THE PATIENT EXPRESSED UNDERSTANDING AND AGREED WITH THE PLAN. I, KETAN HARRIS, DOCUMENTED THE ABOVE INFORMATION ACTING A SCRIBE FOR DR. DICKENS. I HAVE REVIEWED THE ABOVE DOCUMENT, WRITTEN BY KETAN TELLOIBKane AND I VERIFY THAT IT IS ACCURATE. PROCEDURE CODES 6045F RADXPS IN END [id number] PXD [id number] INJECT SACROILIAC JOINT, MODIFIERS: RT DISPOSITION & COMMUNICATION FOLLOW UP 3 WEEKS ELECTRONICALLY SIGNED BY LAVON DICKENS MD, MD ON 04/18/2019 AT 01:27 PM EDT DISCLAIMER : THIS IS A VISIT SUMMARY EXTRACTED FROM THE [employer] CHART. IT IS NOT A COPY OF THE [employer] PROGRESS NOTE. MTDD
== END ==
LOC: M PAIN 14:30
PROVIDERS: ATTEND Anesthesiology
DX: M46.1 Sacroiliitis, not elsewhere classified (principal)

== ENCOUNTER → 2019-04-17 | Outpatient (REF) | payer OTHER ==
[~2019-04-17] MED LIST changes: -BUPR1TAB52 PO; -CIPR-249 PO; -DICY20TA11; -DOXY100C37; -FLUO20CA20 PO; +FLUO20CA8 PO; -HYDR-3719; -HYDR-4517 PO; -KEFL500C17 PO; -LEVOTAB10 PO; -MELO7.5T35 PO; -NICO14DI31 TD; -PERCOCET PO; +TRAZ10TA PO; -TRAZ1TAB12 PO; -VICO7.5T12 PO
[2019-04-17 13:41] LABS: APPEARANCE, URINE HAZY (CLEAR); BACTERIA, URINE AUTO NEGATIVE (NEGATIVE); BILIRUBIN, URINE AUTO NEGATIVE (NEGATIVE); BLOOD, URINE BLOOD 3+ (NEGATIVE); COLOR, URINE YELLOW (YELLOW); GLUCOSE, URINE (UA) AUTO NEGATIVE (NEGATIVE); KETONE, URINE AUTO NEGATIVE (NEGATIVE); LEUKOCYTE ESTERASE, URINE AUTO 3+ (NEGATIVE); NITRITE, URINE AUTO NEGATIVE (NEGATIVE); PROTEIN, URINE AUTO NEGATIVE (NEGATIVE); RBC, URINE AUTO 36 /HPF (0-3); SPECIFIC GRAVITY URINE AUTO 1.012 (1.002-1.035); SQUAMOUS EPITHELIAL CELL UR AU 3 /HPF (0-6); UROBILINOGEN, URINE AUTO 0.2 mg/dL (0.0-2.0); WBC, URINE AUTO 90 /HPF (0-3)
== END ==
LOC: M SMT 13:04
PROVIDERS: ATTEND Nurse Practitioner Women's Health
DX: N20.0 Calculus of kidney (principal)

== ENCOUNTER 2019-05-08 07:58 | Emergency (ER) | payer OTHER ==
[~2019-05-08] VITALS: Ht 165.1 cm; Wt 83.2 kg
[2019-05-08] MEDS ORDERED: DOXY100C37 (08:05)
[2019-05-08] MEDS ORDERED: DICY20TA11 (08:05)
[2019-05-08] MEDS ORDERED: HYDR-3719 (08:05)
[2019-05-08] MEDS ORDERED: MORPHINE 2 MG/ML 1ML SYRINGE (J2270) IV ONE (09:15)
[2019-05-08] MEDS: IPRATROPIUM 0.5MG/ALBUTEROL 2.5MG INH SOL UD 3ML (DUONEB)(J7620) NEB PRN ×3 (09:34→10:19)
[2019-05-08 09:35] LABS: BASO # 0.1 10^3/uL (0.0-0.2); BASO % 0.6 % (0.0-1.0); EOS # 0.2 10^3/uL (0.0-0.50); EOS % 1.9 % (0.0-3.0); HEMATOCRIT 39.1 % (36.0-47.0); HEMOGLOBIN 12.6 g/dl (12.0-15.5); LYMPH # 2.2 10^3/uL (1.5-4.5); LYMPH % 22.3 % (24.0-44.0); MEAN CORPUSCULAR HEMOGLOBIN 30.1 pg (27.0-33.0); MEAN CORPUSCULAR HGB CONC 32.2 g/dl (32.0-36.5); MEAN CORPUSCULAR VOLUME 93.3 fl (80.0-96.0); MONO # 1.3 10^3/uL (0.0-0.8); MONO % 13.6 % (0.0-5.0); NEUTROPHILS # 5.9 10^3/uL (1.8-7.7); NEUTROPHILS % 61.1 % (36.0-66.0); PLATELET COUNT, AUTOMATED 321 10^3/uL (150-450); RED BLOOD COUNT 4.19 10^6/uL (4.00-5.40); WHITE BLOOD COUNT 9.7 10^3/uL (4.0-10.0)
[2019-05-08 10:11] LABS: ALBUMIN 3.3 GM/DL (3.2-5.2); ALT/SGPT 21 U/L (12-78); BILIRUBIN,DIRECT < 0.1 MG/DL (0.0-0.2); BILIRUBIN,TOTAL 0.2 MG/DL (0.2-1.0); BLOOD UREA NITROGEN 17 MG/DL (7-18); CARBON DIOXIDE LEVEL 37 MEQ/L (21-32); CHLORIDE LEVEL 97 MEQ/L (98-107); CK-MB VALUE MASS 2.6 NG/ML (<3.6); CPK CREATINE PHOSPHOKINASE 41 U/L (26-192); CREATININE FOR GFR 0.75 MG/DL (0.55-1.30); GLOMERULAR FILTRATION RATE > 60.0 (>45); GLUCOSE, FASTING 211 MG/DL (70-100); MB/CK RELATIVE INDEX 6.34 (< OR =4); NT-PRO BNP 87 PG/ML (<125); POTASSIUM SERUM 3.9 MEQ/L (3.5-5.1); SODIUM LEVEL 140 MEQ/L (136-145); TOTAL PROTEIN 6.3 GM/DL (6.4-8.2); TROPONIN I < 0.02 NG/ML (< 0.10)
--- NOTE | 2019-05-08 11:07 | REP ---
PA and lateral chest: Comparison is 03/19/2019. The previous interstitial edema has resolved. The lung gonzalez are clear. There are no pleural effusions. There is cardiomegaly, unchanged. The minnie, mediastinum, skeletal structures are impression: Cardiomegaly. Lung gonzalez are clear. Electronically Signed by Sebastian Morocho MD 05/08/2019 10:59 A
[2019-05-08] MEDS ORDERED: cefTRIAXone SOD 2 GM in D5W MINI-BAG PLUS 50 ML IV ONE (12:00)
[2019-05-08] MEDS ORDERED: MORPHINE 4 MG/ML 1ML VIAL/SYRINGE (J2270) IV ONE (12:45)
[2019-05-08] MEDS ORDERED: KETOROLAC 30 MG/ML VIAL (J1885) IV ONE (13:00)
[2019-05-08] MEDS ORDERED: NS 500 ML IV ONE (13:00)
--- NOTE | 2019-05-08 14:22 | REP ---
CT ABDOMEN/PELVIS WITHOUT CONTRAST: CT abdomen/pelvis performed without oral or IV contrast. Sagittal and coronal reconstruction images are performed. Comparison made with prior studies of 04/04/2019 and 04/01/2019. Visualized lung bases demonstrate mild fibroatelectatic change. The liver, spleen, adrenals, and pancreas are grossly unremarkable. Right kidney demonstrates mild extrarenal pelvis. Left kidney demonstrates a large calculus in the renal pelvis approximately 2.8 cm in maximum diameter. There is a mild amount of chronic pelvicaliceal dilatation primarily involving the left upper pole. There is a tiny amount of air in this portion of the collecting system which could indicate pyelonephritis. There appears to be a tiny cyst of the upper pole of the left kidney. A few small intrarenal calculi are also seen in the left lower pole. There is no hydroureter bilaterally. There is no abdominal aortic aneurysm. There is no adenopathy. There is no free air or free fluid. There is no bowel wall thickening. There is diffuse colonic diverticulosis without evidence of acute diverticulitis. There is no evidence of appendicitis. No pelvic mass is seen. Urinary bladder is deviated to the left of midline. A portion of the urinary bladder protrudes into a hernia in the right inguinal region. This is unchanged. There are degenerative changes of the spine. IMPRESSION: Large calculus left renal pelvis with mild hydronephrosis in the upper pole. There is a small amount of air in the left upper pelvicaliceal system. I cannot exclude underlying pyelonephritis. A few small subcentimeter intrarenal calculi are seen in the lower pole of the left kidney. There is no hydroureter bilaterally. Diffuse colonic diverticulosis without acute diverticulitis. Small portion of the urinary bladder protrudes into an anterior hernia in the right inguinal region. Electronically Signed by Sebastian Richards MD 05/09/2019 09:24 A
[2019-05-08] MEDS ORDERED: KEFL500C17 PO (14:49)
[2019-05-08 15:07] VITALS: BP 137/65
--- NOTE | 2019-05-09 00:17 | ECGEPIP ---
[facility] - ED Test Date: 2019-05-08 Pat Name: MAN KANG Department: Room: - Gender: Female Bolt Loader: RUDY : 1955 Requested By: WELLINGTON Ramírez PA-C Order Number: [id number] Reading MD: Donn Tom Measurements Intervals [place] Rate: 99 P: 57 MI: 171 QRS: 13 QRSD: 98 T: 47 QT: 355 QTc: 456 Interpretive Statements SINUS RHYTHM Possible right ventricular conduction delay Nonspecific T wave abnormality Similar to tracing done 03-19-19 Electronically Signed on 05-09-2019 0:17:07 EDT by Donn Tom
== END 2019-05-08 15:10 | disposition home or self-care (01) ==
LOC: M ED 07:58
DX: N12 Tubulo-interstitial nephritis, not specified as acute or chronic (principal); J44.9 Chronic obstructive pulmonary disease, unspecified; E11.9 Type 2 diabetes mellitus without complications; I50.9 Heart failure, unspecified; J45.909 Unspecified asthma, uncomplicated; Z87.09 Personal history of other diseases of the respiratory system; M10.9 Gout, unspecified; F41.9 Anxiety disorder, unspecified; Z87.442 Personal history of urinary calculi; K57.92 Diverticulitis of intestine, part unspecified, without perforation or abscess without bleeding; F17.210 Nicotine dependence, cigarettes, uncomplicated; Z79.899 Other long term (current) drug therapy; Z79.4 Long term (current) use of insulin
CPT/HCPCS: 36415; 71046; 74176; 80048; 80076; 81001; 82550; 82553; 83605; 83880; 85025; 87040; 93005; 94640; 96374; 96375; 99284; J0696; J1885; J2270

== ENCOUNTER 2019-05-26 14:10 | Emergency (ER) | payer OTHER ==
[~2019-05-26] VITALS: Ht 165.1 cm; Wt 82.7 kg
[~2019-05-26 14:10] MED LIST changes: +DICY20TA11; +DOXY100C37; +HYDR-3719; +KEFL500C17 PO
[2019-05-26] MEDS ORDERED: MELO7.5T35 PO (15:20)
[2019-05-26] MEDS ORDERED: LEVOTAB10 PO (15:20)
[2019-05-26] MEDS ORDERED: BUPR1TAB52 PO (15:20)
[2019-05-26] MEDS ORDERED: NS 1,000 ML IV ONE (15:45)
[2019-05-26] MEDS ORDERED: IPRATROPIUM 0.5MG/ALBUTEROL 2.5MG INH SOL UD 3ML (DUONEB)(J7620) NEB ONE (15:45)
[2019-05-26] MEDS ORDERED: methylPREDNISolone INJ 125 MG/2 ML VIAL (J2930) IV ONE (15:45)
[2019-05-26 16:17] LABS: BASO # 0.1 10^3/uL (0.0-0.2); BASO % 0.8 % (0.0-1.0); EOS % 0.2 % (0.0-3.0); HEMATOCRIT 41.2 % (36.0-47.0); HEMOGLOBIN 13.4 g/dl (12.0-15.5); LYMPH # 1.2 10^3/uL (1.5-4.5); LYMPH % 13.4 % (24.0-44.0); MEAN CORPUSCULAR HEMOGLOBIN 30.7 pg (27.0-33.0); MEAN CORPUSCULAR HGB CONC 32.5 g/dl (32.0-36.5); MEAN CORPUSCULAR VOLUME 94.3 fl (80.0-96.0); MONO # 0.6 10^3/uL (0.0-0.8); MONO % 6.3 % (0.0-5.0); NEUTROPHILS % 78.9 % (36.0-66.0); PLATELET COUNT, AUTOMATED 307 10^3/uL (150-450); RED BLOOD COUNT 4.37 10^6/uL (4.00-5.40); WHITE BLOOD COUNT 8.9 10^3/uL (4.0-10.0)
[2019-05-26 17:00] LABS: ALBUMIN 3.6 GM/DL (3.2-5.2); ALT/SGPT 24 U/L (12-78); BILIRUBIN,DIRECT < 0.1 MG/DL (0.0-0.2); BILIRUBIN,TOTAL 0.2 MG/DL (0.2-1.0); BLOOD UREA NITROGEN 25 MG/DL (7-18); CALCIUM LEVEL 9.4 MG/DL (8.8-10.2); CARBON DIOXIDE LEVEL 35 MEQ/L (21-32); CHLORIDE LEVEL 97 MEQ/L (98-107); CREATININE FOR GFR 0.78 MG/DL (0.55-1.30); GLOMERULAR FILTRATION RATE > 60.0 (>45); GLUCOSE, FASTING 251 MG/DL (70-100); NT-PRO BNP 77 PG/ML (<125); POTASSIUM SERUM 4.7 MEQ/L (3.5-5.1); SODIUM LEVEL 138 MEQ/L (136-145); TOTAL PROTEIN 7.1 GM/DL (6.4-8.2)
[2019-05-26] MEDS ORDERED: KETOROLAC 30 MG/ML VIAL (J1885) IV ONE (17:00)
[2019-05-26 18:09] VITALS: BP 148/81
--- NOTE | 2019-05-26 19:10 | REP ---
Cough. COMPARISON: 05/08/2019. There is cardiomegaly status quo. No acute patchy parenchymal opacities or pleural effusions have developed. The osseous structures are stable and intact. IMPRESSION: No significant change from the prior exam. Cardiomegaly without evidence of acute cardiopulmonary disease. Electronically Signed by Ralph Guzman DO 05/27/2019 10:01 A
== END 2019-05-26 18:18 | disposition home or self-care (01) ==
LOC: M ED 14:10
DX: J44.1 Chronic obstructive pulmonary disease with (acute) exacerbation (principal); G89.29 Other chronic pain; E11.9 Type 2 diabetes mellitus without complications; I11.0 Hypertensive heart disease with heart failure; I50.9 Heart failure, unspecified; G62.9 Polyneuropathy, unspecified; K21.9 Gastro-esophageal reflux disease without esophagitis; F33.9 Major depressive disorder, recurrent, unspecified; F41.9 Anxiety disorder, unspecified; Z99.81 Dependence on supplemental oxygen; Z79.899 Other long term (current) drug therapy; Z79.4 Long term (current) use of insulin
CPT/HCPCS: 71046; 80048; 80076; 81001; 83880; 85025; 87086; 96374; 96375; 99284; J1885; J2930

== ENCOUNTER → 2019-05-31 | Outpatient (CLI) | payer OTHER ==
[~2019-05-31] MED LIST changes: +BUPR1TAB52 PO; +LEVOTAB10 PO; +MELO7.5T35 PO
[2019-05-31 12:57] LABS: HEMATOCRIT 42.7 % (36.0-47.0); HEMOGLOBIN 13.4 g/dl (12.0-15.5); MEAN CORPUSCULAR HGB CONC 31.4 g/dl (32.0-36.5); MEAN CORPUSCULAR VOLUME 95.5 fl (80.0-96.0); PLATELET COUNT, AUTOMATED 343 10^3/uL (150-450); RED BLOOD COUNT 4.47 10^6/uL (4.00-5.40); WHITE BLOOD COUNT 10.2 10^3/uL (4.0-10.0)
[2019-05-31 13:09] LABS: INR 0.93; PROTHROMBIN TIME 12.2 SECONDS (11.8-14.0)
[2019-05-31 13:36] LABS: C REACTIVE PROTEIN QUANTITATIV 1.04 MG/DL (0.00-0.30); CHOLESTEROL LEVEL 311 MG/DL (<200); CHOLESTEROL RISK RATIO 6.098 (<5); HDL CHOLESTEROL 51 MG/DL (>40); NON-HDL-C 260 MG/DL; THYROID STIMULATING HORMONE 0.612 uIU/ML (0.358-3.740); TRIGLYCERIDES LEVEL 567 MG/DL (<150)
[2019-05-31 14:38] LABS: HEMOGLOBIN A1c 8.5 %
== END ==
LOC: M LABDRWAD 09:04
PROVIDERS: ATTEND Family Medicine
DX: I10 Essential (primary) hypertension (principal); J44.9 Chronic obstructive pulmonary disease, unspecified; E11.9 Type 2 diabetes mellitus without complications; Z01.818 Encounter for other preprocedural examination

== ENCOUNTER → 2019-06-07 | Outpatient (REF) | payer OTHER ==
[~2019-06-07] MED LIST changes: +CIPR-249 PO; +FLUO20CA20 PO; -FLUO20CA8 PO; +HYDR-4517 PO; +NICO14DI31 TD; +PERCOCET PO; -TRAZ10TA PO; +TRAZ1TAB12 PO; +VICO7.5T12 PO
[2019-06-07 19:17] LABS: APPEARANCE, URINE CLEAR (CLEAR); BACTERIA, URINE AUTO NEGATIVE (NEGATIVE); BILIRUBIN, URINE AUTO NEGATIVE (NEGATIVE); BLOOD, URINE BLOOD NEGATIVE (NEGATIVE); COLOR, URINE YELLOW (YELLOW); GLUCOSE, URINE (UA) AUTO NEGATIVE (NEGATIVE); KETONE, URINE AUTO NEGATIVE (NEGATIVE); LEUKOCYTE ESTERASE, URINE AUTO 2+ (NEGATIVE); MUCUS, URINE SMALL (NEGATIVE); NITRITE, URINE AUTO NEGATIVE (NEGATIVE); PROTEIN, URINE AUTO NEGATIVE (NEGATIVE); RBC, URINE AUTO 9 /HPF (0-3); SQUAMOUS EPITHELIAL CELL UR AU 0 /HPF (0-6); UROBILINOGEN, URINE AUTO 0.2 mg/dL (0.0-2.0); WBC, URINE AUTO 43 /HPF (0-3)
== END ==
LOC: M SMT 18:42
PROVIDERS: ATTEND Nurse Practitioner Women's Health
DX: R30.0 Dysuria (principal)

== ENCOUNTER → 2019-06-11 | Outpatient (CLI) | payer OTHER ==
[~2019-06-11] MED LIST changes: +LIDOCAINE 1% MDV 20ML VIAL As Ordered ONE; +MIDAZOLAM INJ 2 MG/2 ML VIAL (J2250) As Ordered ONE; +ceFAZolin 1GM INJ (J0690 PER 500MG) As Ordered ONE; +diphenhydrAMINE INJ 50MG/ML VIAL (J1200) As Ordered ONE; +fentaNYL 100 MCG/2 ML INJECTION (J3010) As Ordered ONE
--- NOTE | 2019-06-11 12:24 | IRHP ---
[facility] IR Pre-Procedure H & P General Date of Service: Jun 11, 2019 Procedure: Same Day Surgery Interval History and Physical I have seen the patient and reviewed last H & P performed within 30 days. There is no significant interval change. History of Present Illness Chief Complaint The patient is a 63-year-old female admitted with a reason for visit of Lt Staghorn Calculus. needs PCNL access PRE-PROCEDURE DIAGNOSIS: left kidney stone HEART: normal rate. LUNGS: normal breathing at rest. ASA Classification ASA Classification: III-Severe systemic dis. Mallampati Score: II NPO: Yes Problems with prior sedation: No Obstructive Sleep Apnea: No Plan moderate sedation Allergies Coded Allergies: No Known Allergies (Unverified , 05/25/19) Home Medications Scheduled Albuterol Sulf (Albuterol Sulfate), 2.5 MG INH QID, (Reported) Allopurinol (Zyloprim), 300 MG PO DAILY, (Reported) Bupropion HCl (Bupropion HCl Sr), 100 MG PO BID, (Reported) Furosemide (Furosemide), 80 MG PO DAILY, (Reported) Gabapentin (Gabapentin), 300 MG PO TID, (Reported) Insulin Glargine,Hum.rec.anlog (Basaglar Kwikpen U-100), 15 UNIT SC BID, (Reported) Levocetirizine Dihydrochloride (Levocetirizine Dihydrochloride), 5 MG PO DAILY, (Reported) Meloxicam (Meloxicam), 7.5 MG PO BID, (Reported) Metformin HCl (Metformin HCl), 1,000 MG PO BID, (Reported) Potassium Chloride (Potassium Chloride), 16 MEQ PO DAILY, (Reported) Scheduled PRN Alprazolam (Alprazolam), 1 MG PO QID PRN for ANXIETY, (Reported) Hydrocodone/Acetaminophen ([place] 7.5-325 Tablet), 1 TAB PO QID PRN for PAIN, (Reported) Tizanidine HCl (Tizanidine HCl), 4 MG PO QID PRN for MUSCLE SPASMS, (Reported) NORBERTO BUCK MD Jun 11, 2019 12:24
--- NOTE | 2019-06-11 14:07 | POST-OPPD ---
Postoperative Procedure Note Date Of Procedure: Jun 11, 2019 PREOPERATIVE DIAGNOSIS: left kidney stone POSTOPERATIVE DIAGNOSIS: left kidney stone FINDINGS: left kidney stone PROCEDURE: left NephU catheter SURGEON: Jordan ANESTHESIA: moderate sedation ESTIMATED BLOOD LOSS: < 5 ml COMPLICATIONS: none. POSTOPERATIVE CONDITION: stable NORBERTO BUCK MD Jun 11, 2019 14:07
[2019-06-11 15:00] VITALS: BP 113/59
--- NOTE | 2019-06-11 16:13 | REP ---
IR Percutaneous nephroureteral catheter placement using fluoroscopy and ultrasound guidance. IR nephrostogram and ureterogram. IR PCNL access. IR moderate sedation. Ultrasound of the left kidney. Clinical information: Left kidney stone. Plan for PCNL. Physician: Dr Ortega. Procedure: The patient was advised of the benefits, risks and alternatives of the procedure and informed consent was obtained. The time-out was performed with verification of the patient's name, MRN, site of procedure and type of procedure to be performed. The patient was positioned in the prone position on the angiographic table. The site was prepped and draped in the usual sterile fashion. Moderate sedation was performed by the physician including the presence of an independent trained observer who assisted in monitoring the patient's level of consciousness and physiologic status. Following the administration of fentanyl and Versed , the physician spent 45 minutes of face to face time with the patient. A compacting machine operator/tender radiograph reveals large staghorn calculus in the left renal pelvis. Preliminary ultrasound of the left kidney demonstrates dilated upper pole leslee and large stone in the renal pelvis. The anticipated puncture site on the flank was anesthetized with lidocaine. Using ultrasound guidance, the upper pole calyx was safely accessed with a 21 gauge Chiba needle. A nephrostogram and ureterogram was performed demonstrating obstructing large stone in the renal pelvis and decompressed ureter. An 018 wire was then advanced into the collecting system. The needle was then exchanged for a non vascular introducer set. A glide wire was then advanced into collecting system, negotiated past the stone, down the ureter, into the bladder. The micro wire and sheath were removed. And 8-Polish 26 cm nephro ureteral catheter was advanced over the wire under fluoroscopy guidance into the bladder. The distal and proximal pigtails were formed. Final nephrostogram and ureterogram was performed confirming positioning of the nephroureteral catheter. No urinary extravasation. The catheter was sutured in position with 2-0 Prolene and a sterile dressing was applied. The catheter was capped. The patient tolerated the procedure well and was returned to the PRU in stable condition. EBL: < 5 ml. Complications: None. Conclusion: 1. Nephrostogram and ureterogram demonstrate large obstructing staghorn calculus in the left renal pelvis. 2. Successful left-sided nephro ureteral catheter placement for PCNL access. Patient to follow up with urology for stone removal. Thank you for this referral. Electronically Signed by Alexa Ortega MD 06/11/2019 04:12 P
== END ==
LOC: M IRPRO 11:08
PROVIDERS: ATTEND Radiology Diagnostic Radiology
DX: N20.0 Calculus of kidney (principal)
CPT/HCPCS: 50433; 94640; 99152; 99153; C1769; C1894; C2625; J0690; J1200; J2250; J3010

== ENCOUNTER → 2019-06-13 | Outpatient (CLI) | payer OTHER ==
[~2019-06-13] VITALS: Ht 165.1 cm; Wt 83.9 kg
[~2019-06-13] MED LIST changes: +ALBUTEROL SULFATE 2.5 MG/0.5 ML INH NEB SOLN As Ordered ONE; +ALBUTEROL SULFATE 2.5 MG/0.5 ML INH NEB SOLN INH ONE; -CIPR-249 PO; +CONRAY-60 60% 50ML VIAL (Q9961) As Ordered ONE; -FLUO20CA20 PO; +FLUO20CA8 PO; -HYDR-4517 PO; +HumaLOG INSULIN (NovoLOG) PER UNIT As Ordered ONE; +HumaLOG INSULIN (NovoLOG) PER UNIT SC ONE; -LIDOCAINE 1% MDV 20ML VIAL As Ordered ONE; +LIDOCAINE 1% MDV 20ML VIAL SQ PRN; +LIDOCAINE 2% INJ 100 MG/5 ML SDV (FOR ANES.) As Ordered ONE; +LR 1,000 ML IV ONE; +LevoFLOXacin IV 500 MG in APPROPRIATE DILUENT 1 EA IV ONE; -NICO14DI31 TD; +ONDANSETRON 4MG/2ML VIAL (J2405) As Ordered ONE; -PERCOCET PO; +PROPOFOL 200 MG/20 ML VIAL As Ordered ONE; +ROCURONIUM BROMIDE 50 MG/5 ML VIAL As Ordered ONE; +TRAZ10TA PO; -TRAZ1TAB12 PO; -VICO7.5T12 PO; -ceFAZolin 1GM INJ (J0690 PER 500MG) As Ordered ONE; +dexameTHASONE 4 MG/ML 1ML VIAL (J1100) As Ordered ONE; -diphenhydrAMINE INJ 50MG/ML VIAL (J1200) As Ordered ONE; -fentaNYL 100 MCG/2 ML INJECTION (J3010) As Ordered ONE; +fentaNYL 250 MCG/5 ML INJECTION (J3010) As Ordered ONE
[2019-06-13 06:52] VITALS: BP 109/61
== END ==
LOC: M OR 06:35 → UNDOADMIN 06:35 → M LAB 08:00 → EDSTATUS 12:40
PROVIDERS: ATTEND Urology
DX: N20.0 Calculus of kidney (principal)

== ENCOUNTER → 2019-06-14 | Outpatient (CLI) | payer OTHER ==
[~2019-06-14] MED LIST changes: -ALBUTEROL SULFATE 2.5 MG/0.5 ML INH NEB SOLN As Ordered ONE; -ALBUTEROL SULFATE 2.5 MG/0.5 ML INH NEB SOLN INH ONE; +CIPR-249 PO; -CONRAY-60 60% 50ML VIAL (Q9961) As Ordered ONE; +FLUO20CA20 PO; -FLUO20CA8 PO; +HYDR-4517 PO; -HumaLOG INSULIN (NovoLOG) PER UNIT As Ordered ONE; -HumaLOG INSULIN (NovoLOG) PER UNIT SC ONE; -LIDOCAINE 1% MDV 20ML VIAL SQ PRN; -LIDOCAINE 2% INJ 100 MG/5 ML SDV (FOR ANES.) As Ordered ONE; -LR 1,000 ML IV ONE; -LevoFLOXacin IV 500 MG in APPROPRIATE DILUENT 1 EA IV ONE; -MIDAZOLAM INJ 2 MG/2 ML VIAL (J2250) As Ordered ONE; +NICO14DI31 TD; -ONDANSETRON 4MG/2ML VIAL (J2405) As Ordered ONE; +PERCOCET PO; -PROPOFOL 200 MG/20 ML VIAL As Ordered ONE; -ROCURONIUM BROMIDE 50 MG/5 ML VIAL As Ordered ONE; -TRAZ10TA PO; +TRAZ1TAB12 PO; +VICO7.5T12 PO; -dexameTHASONE 4 MG/ML 1ML VIAL (J1100) As Ordered ONE; -fentaNYL 250 MCG/5 ML INJECTION (J3010) As Ordered ONE
--- NOTE | 2019-06-14 19:14 | REP ---
PA and lateral chest: Comparisons are 03/20/2018 and 05/26/2019. There is chronic cardiomegaly, unchanged. Lung gonzalez are clear. The minnie, mediastinum, skeletal structures are unremarkable. Impression: Chronic cardiomegaly, otherwise negative PA and lateral chest. Electronically Signed by Sebastian Morocho MD 06/14/2019 07:06 P
--- NOTE | 2019-06-14 19:20 | REP ---
Abdomen two views: Comparison is the abdomen/pelvis CT of 05/08/2019. There is a large left renal calculus. There is a percutaneous left nephrostomy as an interval change. The bowel gas pattern is normal. There are calcifications in the subcutaneous soft tissues of the right buttocks, unchanged from a prior study of 06/02/2016, possibly post-traumatic calcifications. Impression: Normal bowel gas pattern. Left percutaneous nephrostomy. Large left renal calculus. Electronically Signed by Sebastian Morocho MD 06/14/2019 07:11 P
== END ==
LOC: M WUC 18:39
PROVIDERS: ATTEND Physician Assistant
DX: R05 Cough (principal); K59.00 Constipation, unspecified; I51.7 Cardiomegaly; N20.0 Calculus of kidney

== ENCOUNTER → 2019-06-26 | Outpatient (REF) | payer OTHER ==
[~2019-06-26] MED LIST changes: -CIPR-249 PO; -FLUO20CA20 PO; +FLUO20CA8 PO; -NICO14DI31 TD; -PERCOCET PO; +TRAZ10TA PO; -TRAZ1TAB12 PO
[2019-06-26 14:04] LABS: HEMATOCRIT 41.8 % (36.0-47.0); HEMOGLOBIN 13.3 g/dl (12.0-15.5); MEAN CORPUSCULAR HEMOGLOBIN 29.8 pg (27.0-33.0); MEAN CORPUSCULAR HGB CONC 31.8 g/dl (32.0-36.5); MEAN CORPUSCULAR VOLUME 93.7 fl (80.0-96.0); PLATELET COUNT, AUTOMATED 435 10^3/uL (150-450); RED BLOOD COUNT 4.46 10^6/uL (4.00-5.40); WHITE BLOOD COUNT 14.9 10^3/uL (4.0-10.0)
[2019-06-26 14:18] LABS: ALBUMIN 3.5 GM/DL (3.2-5.2); ALT/SGPT 19 U/L (12-78); BILIRUBIN,TOTAL 0.2 MG/DL (0.2-1.0); BLOOD UREA NITROGEN 20 MG/DL (7-18); CALCIUM LEVEL 9.6 MG/DL (8.8-10.2); CARBON DIOXIDE LEVEL 39 MEQ/L (21-32); CHLORIDE LEVEL 95 MEQ/L (98-107); CHOLESTEROL LEVEL 261 MG/DL (<200); CHOLESTEROL RISK RATIO 4.833 (<5); CREATININE FOR GFR 0.73 MG/DL (0.55-1.30); GLOMERULAR FILTRATION RATE > 60.0 (>45); GLUCOSE, FASTING 118 MG/DL (70-100); HDL CHOLESTEROL 54 MG/DL (>40); NON-HDL-C 207 MG/DL; POTASSIUM SERUM 4.6 MEQ/L (3.5-5.1); SODIUM LEVEL 140 MEQ/L (136-145); THYROID STIMULATING HORMONE 0.491 uIU/ML (0.358-3.740); TOTAL 25(OH) VITAMIN D 10.2 NG/ML (30.0-100.0); TOTAL PROTEIN 6.4 GM/DL (6.4-8.2); TRIGLYCERIDES LEVEL 413 MG/DL (<150)
== END ==
LOC: M LABDRWAD 13:47
PROVIDERS: ATTEND Family Medicine
DX: I10 Essential (primary) hypertension (principal)

== ENCOUNTER → 2019-07-16 | Outpatient (REF) | payer OTHER ==
[~2019-07-16] MED LIST changes: +CIPR-249 PO; +FLUO20CA20 PO; -FLUO20CA8 PO; +NICO14DI31 TD; +PERCOCET PO; -TRAZ10TA PO; +TRAZ1TAB12 PO
== END ==
LOC: M LAB REF 14:11
PROVIDERS: ATTEND Physician Assistant
DX: N39.0 Urinary tract infection, site not specified (principal)

== ENCOUNTER 2019-07-26 06:57 | Inpatient (IN) | payer OTHER ==
[~2019-07-26] VITALS: Ht 165.1 cm; Wt 82.8 kg
[~2019-07-26 06:57] MED LIST changes: -CIPR-249 PO; -FLUO20CA20 PO; +FLUO20CA8 PO; -NICO14DI31 TD; -PERCOCET PO; +TRAZ10TA PO; -TRAZ1TAB12 PO
[2019-07-26] MEDS ORDERED: LR 1,000 ML IV ONE (07:00)
[2019-07-26] MEDS ORDERED: LevoFLOXacin(LEVAQUIN)500 MG/100 ML BAG (J1956) As Ordered ONE (07:31)
[2019-07-26] MEDS ORDERED: CONRAY-60 60% 50ML VIAL (Q9961) As Ordered ONE ×2 (07:35→10:13)
[2019-07-26] MEDS: LevoFLOXacin IV 500 MG in IV 1 EA IV ONE ×2 (08:22→08:23)
[2019-07-26] MEDS: buPROPion (WELLBUTRIN SR) 100 MG SR TAB PO SCH ×2 (09:00→21:35)
[2019-07-26] MEDS: POTASSIUM CHLORIDE 10 MEQ SR TABLET PO SCH (09:00)
[2019-07-26] MEDS: ALLOPURINOL 300 MG TAB PO SCH (09:00)
[2019-07-26] MEDS ORDERED: NS 1,000 ML IV SCH (09:10)
[2019-07-26] MEDS ORDERED: MIDAZOLAM INJ 2 MG/2 ML VIAL (J2250) As Ordered ONE (09:12)
[2019-07-26] MEDS ORDERED: dexameTHASONE 4 MG/ML 1ML VIAL (J1100) As Ordered ONE (09:12)
[2019-07-26] MEDS ORDERED: PROPOFOL 200 MG/20 ML VIAL As Ordered ONE (09:12)
[2019-07-26] MEDS ORDERED: ETOMIDATE INJ 20MG/10ML VIAL As Ordered ONE (09:12)
[2019-07-26] MEDS ORDERED: ROCURONIUM BROMIDE 50 MG/5 ML VIAL As Ordered ONE ×2 (09:12→10:44)
[2019-07-26] MEDS ORDERED: LIDOCAINE 2% INJ 100 MG/5 ML SDV (FOR ANES.) As Ordered ONE (09:12)
[2019-07-26] MEDS ORDERED: fentaNYL 250 MCG/5 ML INJECTION (J3010) As Ordered ONE (09:12)
[2019-07-26] MEDS ORDERED: ONDANSETRON 4MG/2ML VIAL (J2405) As Ordered ONE (09:12)
[2019-07-26] MEDS ORDERED: MORPHINE 4 MG/ML 1ML VIAL/SYRINGE (J2270) IV PRN (09:15)
[2019-07-26] MEDS ORDERED: ACETAMINOPHEN TAB 650MG DOSE (2X325MG) PO PRN (09:15)
[2019-07-26] MEDS ORDERED: GLUCAGON FOR INJ 1 MG VIAL (J1610) SC PRN (09:15)
[2019-07-26] MEDS ORDERED: PERCOCET 5MG/325MG TAB PO PRN (09:15)
[2019-07-26] MEDS ORDERED: ONDANSETRON 4MG/2ML VIAL (J2405) IV PRN ×2 (09:15→12:45)
[2019-07-26] MEDS ORDERED: GLUCOSE 4 GM CHEW TABLET PO PRN (09:15)
[2019-07-26] MEDS ORDERED: DEXTROSE 50% 50 ML SYRINGE IV PRN (09:15)
[2019-07-26] MEDS ORDERED: ePHEDrine SULFATE 25 MG/5 ML(5MG/ML) SYRINGE As Ordered ONE (10:34)
[2019-07-26] MEDS ORDERED: PHENYLephrine HCL 500 MCG/5 ML (100MCG/ML) SYRINGE (J2370) As Ordered ONE (10:34)
[2019-07-26] MEDS ORDERED: SUGAMMADEX SODIUM 500 MG/5 ML VIAL (BRIDION) As Ordered ONE (10:44)
[2019-07-26] MEDS ORDERED: ALBUTEROL 6.7GM INHALER **FOR ANES. CART/OMNICELL ONLY As Ordered ONE (11:59)
[2019-07-26] MEDS: HumaLOG INSULIN (NovoLOG) PER UNIT SC SCH ×2 (12:00→17:00)
--- NOTE | 2019-07-26 12:24 | REP ---
ANTEGRADE PYELOGRAM: Five views. HISTORY: Nephrolithiasis. Large tract renal stone manipulation. 1 minute 38 seconds of fluoroscopy time is reported. FINDINGS: A sequence of five last image hold fluoroscopically obtained spot radiographs document antegrade manipulation and ureteral stent placement of the right kidney for intrarenal stone disease. Electronically Signed by Basil Lucas MD 07/26/2019 12:37 P
[2019-07-26 12:26] LABS: HEMATOCRIT 41.1 % (36.0-47.0); HEMOGLOBIN 12.6 g/dl (12.0-15.5); MEAN CORPUSCULAR HEMOGLOBIN 29.6 pg (27.0-33.0); MEAN CORPUSCULAR HGB CONC 30.7 g/dl (32.0-36.5); MEAN CORPUSCULAR VOLUME 96.7 fl (80.0-96.0); PLATELET COUNT, AUTOMATED 335 10^3/uL (150-450); RED BLOOD COUNT 4.25 10^6/uL (4.00-5.40); WHITE BLOOD COUNT 10.5 10^3/uL (4.0-10.0)
--- NOTE | 2019-07-26 12:26 | ROOPDOC ---
[facility] Report Of Operation Report of Operation DATE OF PROCEDURE: 07/26/19 PREPROCEDURE DIAGNOSIS: Left kidney stone. POSTPROCEDURE DIAGNOSIS: Left kidney stone. PROCEDURE: Left percutaneous nephrolithotomy, left antegrade nephrostogram with intraoperative interpretation of images, left ureteral stent placement. SURGEON: Dr. Beatriz Garcia BIOINFORMATICS DEVELOPER: None ANESTHESIA: General. OPERATIVE INDICATIONS: This is a 63-year-old female who was recently found to have a large staghorn calculus in her left kidney. It was recommended she be brought to the operating room for the above-listed procedure. DESCRIPTION OF PROCEDURE: The patient brought to the operating room, and general anesthesia was induced. Culture-specific antibiotics were infused. A Manuel catheter was then placed under sterile conditions. The patient was then repositioned in the prone position in preparation for a left-sided percutaneous nephrolithotomy. The patient was then prepped and draped in the usual sterile fashion. At this point, the previously-placed left nephroureteral catheter was utilized to advance a Sensor guidewire down the left collecting system and into the bladder. The nephroureteral catheter was then removed, leaving the wire in place. Next, a 2-3 cm transverse incision was made adjacent to the wire. A dual-lumen ureteral catheter was then advanced down into the left renal pelvis. An Amplatz Super Stiff wire was then advanced down the left collecting system and into the bladder. The dual-lumen ureteral catheter was then removed, leaving both wires in place. The Super Stiff wire was then secured to the drape to serve as a safety wire. Next, over the Sensor wire, a balloon dilator was advanced into the left renal pelvis. The balloon was then inflated and left in place for a few seconds. Next, an access sheath was advanced over the balloon into the left renal pelvis. The balloon was then let down and removed, leaving the access sheath and the wire in place. At this point, a nephroscope was introduced into the left renal pelvis. We were able to identify the large left-sided stone. The stone was t hen fragmented into several pieces and suctioned out using a CyberWand. After making sure all of the large stone fragments had been removed, the nephroscope was taken out, and a #7-Tamazight x 22-32 cm double J ureteral stent was advanced down into the left collecting system over the wire. The Sensor wire was then removed, and there were adequate curls of the stent in the left renal pelvis and in the bladder. At this point, the access sheath was removed, and the Super Stiff wire was utilized to advance a #18-Tamazight [place] tip catheter down into the left collecting system. After the tip was within the renal pelvis, the balloon was inflated with about 3 mL of contrast. The [place] tip catheter was also utilized to shoot an antegrade nephrostogram, and this was negative for extravasation. We then secured the [place] tip catheter to the skin with a #2-0 silk suture. This was then connected to gravity drainage and marked the conclusion of the procedure. The patient was placed back in supine position, awakened from anesthesia, and transported to the recovery room in stable condition. ESTIMATED BLOOD LOSS: approximately 50 mL COMPLICATIONS: None. SPECIMENS: Left kidney stone fragments. PLAN: The patient will be admitted to the hospital postoperatively. I will likely remove her left nephrostomy catheter tomorrow, and if her labs are stable and urine output is clear, I will also remove the Manuel catheter. She will be discharged home with the stent in place with the plan to remove that in a few weeks in the office. BEATRIZ GARCIA MD Jul 26, 2019 12:26
[2019-07-26] MEDS: PERCOCET 5MG/325MG TAB PO PRN ×4 (12:40→22:27)
[2019-07-26] MEDS ORDERED: METOCLOPRAMIDE INJ 10MG/2ML VIAL (J2765) IV PRN (12:45)
[2019-07-26] MEDS ORDERED: LR 1,000 ML IV SCH (12:45)
[2019-07-26 12:56] LABS: BLOOD UREA NITROGEN 26 MG/DL (7-18); CALCIUM LEVEL 9.3 MG/DL (8.8-10.2); CARBON DIOXIDE LEVEL 39 MEQ/L (21-32); CHLORIDE LEVEL 92 MEQ/L (98-107); CREATININE FOR GFR 0.86 MG/DL (0.55-1.30); GLOMERULAR FILTRATION RATE > 60.0 (>45); GLUCOSE, FASTING 202 MG/DL (70-100); POTASSIUM SERUM 3.9 MEQ/L (3.5-5.1); SODIUM LEVEL 137 MEQ/L (136-145)
[2019-07-26 14:03] VITALS: BP 132/74
[2019-07-26 15:03] VITALS: BP 129/74
[2019-07-26] MEDS: PIPERACILLIN/TAZOBACTAM SOD 3.375 GM in D5W MINI-BAG PLUS 50 ML IV SCH ×2 (15:03→20:32)
[2019-07-26] MEDS: GABAPENTIN 300 MG CAP PO SCH ×2 (15:03→21:36)
[2019-07-26] MEDS: ALBUTEROL 90 MCG/ACT 8GM HFA INHALER INH SCH ×2 (15:41→18:11)
[2019-07-26 16:03] VITALS: BP 126/73
[2019-07-26 17:14] VITALS: BP 124/72
[2019-07-26] MEDS ORDERED: ALPRAZolam 0.5 MG TAB PO PRN (17:45)
[2019-07-26 18:16] VITALS: BP 122/71
[2019-07-26 20:48] VITALS: BP 118/71
[2019-07-26] MEDS ORDERED: HumaLOG INSULIN (NovoLOG) PER UNIT SC SCH (21:00)
[2019-07-26] MEDS: tiZANidine 4 MG TAB PO PRN (21:35)
[2019-07-26] MEDS: DOCUSATE SODIUM 100 MG CAP PO SCH (21:36)
[2019-07-27] MEDS: PIPERACILLIN/TAZOBACTAM SOD 3.375 GM in D5W MINI-BAG PLUS 50 ML IV SCH ×2 (02:23→08:28)
[2019-07-27] MEDS: PERCOCET 5MG/325MG TAB PO PRN ×3 (04:08→14:35)
[2019-07-27 06:33] LABS: HEMATOCRIT 37.2 % (36.0-47.0); HEMOGLOBIN 11.4 g/dl (12.0-15.5); MEAN CORPUSCULAR HEMOGLOBIN 30.2 pg (27.0-33.0); MEAN CORPUSCULAR HGB CONC 30.6 g/dl (32.0-36.5); MEAN CORPUSCULAR VOLUME 98.7 fl (80.0-96.0); PLATELET COUNT, AUTOMATED 303 10^3/uL (150-450); RED BLOOD COUNT 3.77 10^6/uL (4.00-5.40); WHITE BLOOD COUNT 14.5 10^3/uL (4.0-10.0)
[2019-07-27 06:51] VITALS: BP 120/71
[2019-07-27 07:00] LABS: BLOOD UREA NITROGEN 19 MG/DL (7-18); CALCIUM LEVEL 8.7 MG/DL (8.8-10.2); CARBON DIOXIDE LEVEL 41 MEQ/L (21-32); CHLORIDE LEVEL 96 MEQ/L (98-107); CREATININE FOR GFR 0.75 MG/DL (0.55-1.30); GLOMERULAR FILTRATION RATE > 60.0 (>45); GLUCOSE, FASTING 188 MG/DL (70-100); POTASSIUM SERUM 4.2 MEQ/L (3.5-5.1); SODIUM LEVEL 137 MEQ/L (136-145)
[2019-07-27] MEDS: ALBUTEROL 90 MCG/ACT 8GM HFA INHALER INH SCH ×2 (08:03→12:00)
[2019-07-27] MEDS: POTASSIUM CHLORIDE 10 MEQ SR TABLET PO SCH (08:28)
[2019-07-27] MEDS: GABAPENTIN 300 MG CAP PO SCH (08:29)
[2019-07-27] MEDS: buPROPion (WELLBUTRIN SR) 100 MG SR TAB PO SCH (08:29)
[2019-07-27] MEDS: DOCUSATE SODIUM 100 MG CAP PO SCH (08:29)
[2019-07-27] MEDS: ALLOPURINOL 300 MG TAB PO SCH (08:29)
[2019-07-27] MEDS: HumaLOG INSULIN (NovoLOG) PER UNIT SC SCH ×2 (08:31→11:47)
[2019-07-27] MEDS ORDERED: FUROSEMIDE 40 MG TAB PO SCH (09:00)
[2019-07-27] MEDS ORDERED: predniSONE 10 MG TAB PO SCH (09:00)
[2019-07-27] MEDS: IPRATROPIUM 0.5MG/ALBUTEROL 2.5MG INH SOL UD 3ML (DUONEB)(J7620) NEB PRN ×2 (09:17→14:55)
[2019-07-27] MEDS ORDERED: PERCOCET PO (11:46)
[2019-07-27] MEDS: tiZANidine 4 MG TAB PO PRN (14:34)
[2019-07-28] MEDS ORDERED: FLUBLOK(EGG FREE)(QUAD)INFLUENZA VACC 0.5ML SYRINGE (90682)18YRS&OLDER IM ONE (09:00)
--- NOTE | 2019-07-31 21:11 | DSES ---
DATE OF ADMISSION: 07/26/2019 DATE OF DISCHARGE: 07/27/2019 ADMISSION DIAGNOSIS: Left staghorn calculus. DISCHARGE DIAGNOSIS: Left staghorn calculus. ADMITTING PHYSICIAN: Dr. Yogesh Bryan DISCHARGING PHYSICIAN: Dr. Yogesh Bryan PROCEDURE PERFORMED: A left percutaneous nephrolithotomy on 07/26/2019. HISTORY OF PRESENT ILLNESS: This is a 60-year-old female with a large left staghorn calculus, which is also the cause of recurrent urinary tract infections. She was brought to the operating room on 07/26/2019 for treatment and was admitted postoperatively. HOSPITALIZATION COURSE: Patient's postoperative course was unremarkable. On postoperative day #1, she had very good pain control with oral pain medications. Her lab work was within normal limits. Her hemoglobin remained stable at 11.4, and her serum creatinine was stable 0.8. She had excellent urine output from her nephrostomy catheter as well as her Manuel catheter. The urine output from both appeared pinkish. I therefore removed her nephrostomy catheter on postoperative day #1, and subsequently her Manuel catheter was removed. She did not have any difficulty voiding. She was tolerating a regular diet. She was therefore deemed ready for discharge home on outpatient day #1 with the plan for her to followup in clinic in a few weeks for stent removal with a KUB prior.
== END 2019-07-27 15:50 | disposition home or self-care (01) | DRG 443 ==
LOC: M OR 06:57 → M MS5PR 13:25
PROVIDERS: ADMIT Urology; ATTEND Urology
PROC: 0TC13ZZ Extirpation of Matter from Left Kidney, Percutaneous Approach (ICD-10-PCS; principal; 2019-07-26 08:30)
DX: N20.0 Calculus of kidney (principal)

== ENCOUNTER 2019-07-29 14:51 | Emergency (ER) | payer OTHER ==
[~2019-07-29] VITALS: Ht 165.1 cm; Wt 85.0 kg
[~2019-07-29 14:51] MED LIST changes: +PERCOCET PO
[2019-07-29] MEDS ORDERED: NS 1,000 ML IV SCH (15:28)
[2019-07-29] MEDS ORDERED: ONDANSETRON 4MG/2ML VIAL (J2405) IV ONE (15:30)
[2019-07-29] MEDS ORDERED: KETOROLAC 30 MG/ML VIAL (J1885) IV ONE (16:00)
[2019-07-29 16:15] LABS: BASO # 0.1 10^3/uL (0.0-0.2); BASO % 0.4 % (0.0-1.0); EOS % 0.1 % (0.0-3.0); HEMATOCRIT 39.9 % (36.0-47.0); HEMOGLOBIN 12.8 g/dl (12.0-15.5); LYMPH # 1.1 10^3/uL (1.5-5.0); LYMPH % 8.1 % (24.0-44.0); MEAN CORPUSCULAR HGB CONC 32.1 g/dl (32.0-36.5); MEAN CORPUSCULAR VOLUME 93.4 fl (80.0-96.0); MONO # 1.4 10^3/uL (0.0-0.8); MONO % 9.9 % (0.0-5.0); NEUTROPHILS # 11.1 10^3/uL (1.5-8.5); NEUTROPHILS % 80.6 % (36.0-66.0); PLATELET COUNT, AUTOMATED 262 10^3/uL (150-450); RED BLOOD COUNT 4.27 10^6/uL (4.00-5.40); WHITE BLOOD COUNT 13.8 10^3/uL (4.0-10.0)
[2019-07-29 17:07] LABS: ALBUMIN 2.5 GM/DL (3.2-5.2); ALT/SGPT 18 U/L (12-78); BILIRUBIN,DIRECT 0.1 MG/DL (0.0-0.2); BILIRUBIN,TOTAL 0.3 MG/DL (0.2-1.0); BLOOD UREA NITROGEN 13 MG/DL (7-18); CARBON DIOXIDE LEVEL 42 MEQ/L (21-32); CHLORIDE LEVEL 91 MEQ/L (98-107); CREATININE FOR GFR 0.74 MG/DL (0.55-1.30); GLOMERULAR FILTRATION RATE > 60.0 (>45); GLUCOSE, FASTING 306 MG/DL (70-100); LIPASE 55 U/L (73-393); POTASSIUM SERUM 3.8 MEQ/L (3.5-5.1); SODIUM LEVEL 137 MEQ/L (136-145)
[2019-07-29] MEDS ORDERED: ALBUTEROL SULFATE 2.5 MG/0.5 ML INH NEB SOLN NEB ONE (17:15)
[2019-07-29 17:51] VITALS: BP 122/68
[2019-07-29] MEDS ORDERED: CIPR-249 PO (18:22)
[2019-07-29] MEDS ORDERED: ZOFR4TAB16 PO (18:22)
[2019-07-29] MEDS ORDERED: CIPROFLOXACIN 500 MG TAB PO ONE (19:00)
--- NOTE | 2019-07-30 07:16 | REP ---
REASON: Pain status post lithotripsy. COMPARISON: 05/08/2019 Since the last examination, a double pigtail stent has been placed in the left renal collecting system. The proximal portion of the stent is in the renal pelvis and the distal portion of the stent is in the urinary bladder. There is mild left-sided hydronephrosis and hydroureter. A single tiny calcification is seen adjacent to, if not within the distal left ureter, possibly representing a tiny ureterolith. This was not present on the prior exam. There is perinephric stranding representing a change from the prior exam. The large staghorn type calculus is seen previously in the left renal pelvis is no longer present, however, there are numerable tiny calcifications in the inferior pole of the left kidney most of which were not present on the prior exam and consistent with recent lithotripsy. Multifocal air density is seen in the left kidney confined to the renal sinus/renal cortex junction. This, too, represents a change from the prior exam. There is a tiny air density seen within Gerota's fascia just deep to the thoracolumbar fascia on the left. This represents a change from the prior exam. The solid intra-abdominal organs and gallbladder show no significant changes from the prior exam. The right kidney is unchanged. The bowel loops and their mesenteries are unchanged and again seen to be within normal limits. There is colonic diverticulosis status quo. Bone window technique throughout the exam shows no significant change in the appearance of the imaged osseous structures. The lung bases are clear and unchanged. IMPRESSION: 1. There are changes in the left kidney likely secondary to recent lithotripsy, however, the exact etiology of the new left renal air densities is uncertain at this time. Clinical correlation and close followup is recommended. 2. Left renal calcifications and probable ureterolith on the left as described above. 3. There is left perinephric stranding representing a change from the prior exam and probably secondary to the post lithotripsy state. I cannot rule out the possibility of renal injury or infectious etiology. It should be stated that the prior exam showed tinier densities in the left kidney in the same location as those seen today but they have increased. 4. Other findings as described above. 5. Infectious etiology involving the left kidney cannot be ruled out by this exam. Electronically Signed by Ralph Guzman DO 07/30/2019 12:45 P
--- NOTE | 2019-08-01 16:07 | ED PDOC ---
Post-Departure Follow-Up [facility] faxed formal report of ct abd/p for fu Melvin Lee MD Aug 01, 2019 16:07
== END 2019-07-29 18:57 | disposition home or self-care (01) ==
LOC: M ED 14:51
DX: N39.0 Urinary tract infection, site not specified (principal); N18.9 Chronic kidney disease, unspecified; Z87.442 Personal history of urinary calculi; J44.9 Chronic obstructive pulmonary disease, unspecified; Z79.4 Long term (current) use of insulin; Z79.891 Long term (current) use of opiate analgesic; Z79.899 Other long term (current) drug therapy
CPT/HCPCS: 74176; 80048; 80076; 81001; 83690; 85025; 87086; 94640; 96374; 96375; 99284; J1885; J2405

== ENCOUNTER → 2019-08-13 | Outpatient (REF) | payer OTHER ==
[~2019-08-13] MED LIST changes: +CIPR-249 PO
== END ==
LOC: M SMT 19:02
PROVIDERS: ATTEND Urology
DX: R30.0 Dysuria (principal)

== ENCOUNTER → 2019-08-20 | Outpatient (CLI) | payer OTHER ==
--- NOTE | 2019-08-21 02:14 | REP ---
Clinical: History of staghorn calculus. Technique: Two supine views of the abdomen and pelvis. Findings: Left ureteral stent in satisfactory position. Nonobstructing left renal calculi are identified. The bowel gas pattern demonstrates prominent air filled loops of small bowel raising the possibility of enteritis and less likely early/partial obstruction. Correlation is required. Impression: 1. Left ureteral stent in satisfactory position. Left renal calculi noted. 2. Prominent small bowel raising the possibility of enteritis and less likely early/partial small bowel obstruction. Electronically Signed by Marky Puga MD 08/21/2019 02:06 A
== END ==
LOC: M RAD 12:16
PROVIDERS: ATTEND Nurse Practitioner Women's Health
DX: N20.0 Calculus of kidney (principal)

== ENCOUNTER 2019-10-18 11:14 | Emergency (ER) | payer OTHER ==
[~2019-10-18] VITALS: Ht 165.1 cm; Wt 84.1 kg
[~2019-10-18 11:14] MED LIST changes: +FLUO20CA20 PO; -FLUO20CA8 PO
[2019-10-18] MEDS ORDERED: IPRATROPIUM 0.5MG/ALBUTEROL 2.5MG INH SOL UD 3ML (DUONEB)(J7620) NEB ONE ×2 (14:45→15:30)
--- NOTE | 2019-10-18 14:56 | REP ---
Clinical: COUGH AND DYSPNEA. Comparison: 09/26/2019. Technique: PA and lateral. Findings: The mediastinum and cardiac silhouette are normal. The lung gonzalez are clear and without acute consolidation, effusion, or pneumothorax. The skeletal structures are intact and normal. Impression: 1. No acute cardiopulmonary process. Electronically Signed by Marky Puga MD 10/18/2019 02:47 P
[2019-10-18] MEDS ORDERED: PRED20TA PO (16:10)
[2019-10-18 16:17] VITALS: BP 141/78
== END 2019-10-18 16:26 | disposition home or self-care (01) ==
LOC: M ED 11:14
DX: J44.1 Chronic obstructive pulmonary disease with (acute) exacerbation (principal); Z99.81 Dependence on supplemental oxygen; Z79.4 Long term (current) use of insulin; Z79.899 Other long term (current) drug therapy

== ENCOUNTER 2020-02-18 22:43 | Inpatient (IN) | payer OTHER ==
[~2020-02-18] VITALS: Ht 165.1 cm; Wt 90.3 kg
[~2020-02-18 22:43] MED LIST changes: +CYCL-707 PO; -CYCL10TA PO; -FLUO20CA19; +FLUO20CA22; +NICO14DI31 TD; -TRAZ10TA PO; +TRAZ1TAB12 PO
[2020-02-18] MEDS ORDERED: TRUL0.5I PO (22:57)
[2020-02-18] MEDS ORDERED: ACETAMINOPHEN 325 MG TAB PO ONE (23:30)
[2020-02-18] MEDS ORDERED: ONDANSETRON 4MG/2ML VIAL IV ONE (23:30)
[2020-02-18] MEDS ORDERED: NS 1,000 ML IV ONE (23:30)
[2020-02-19 00:42] LABS: ALBUMIN 3.2 GM/DL (3.2-5.2); ALT/SGPT 22 U/L (12-78); BILIRUBIN,DIRECT < 0.1 MG/DL (0.0-0.2); BILIRUBIN,TOTAL 0.3 MG/DL (0.2-1.0); BLOOD UREA NITROGEN 19 MG/DL (7-18); CALCIUM LEVEL 9.2 MG/DL (8.8-10.2); CARBON DIOXIDE LEVEL 33 MEQ/L (21-32); CHLORIDE LEVEL 94 MEQ/L (98-107); CREATININE FOR GFR 0.81 MG/DL (0.55-1.30); GLOMERULAR FILTRATION RATE > 60.0 (>45); GLUCOSE, FASTING 211 MG/DL (70-100); LIPASE 93 U/L (73-393); POTASSIUM SERUM 3.7 MEQ/L (3.5-5.1); SODIUM LEVEL 135 MEQ/L (136-145); TOTAL PROTEIN 6.6 GM/DL (6.4-8.2)
[2020-02-19 00:43] LABS: BASO # 0.1 10^3/uL (0.0-0.2); BASO % 0.4 % (0.0-1.0); EOS # 0.1 10^3/uL (0.0-0.5); EOS % 0.3 % (0.0-3.0); HEMATOCRIT 39.6 % (36.0-47.0); HEMOGLOBIN 12.7 g/dl (12.0-15.5); LYMPH # 1.2 10^3/uL (1.5-5.0); LYMPH % 6.4 % (24.0-44.0); MEAN CORPUSCULAR HGB CONC 32.1 g/dl (32.0-36.5); MEAN CORPUSCULAR VOLUME 90.4 fl (80.0-96.0); MONO # 1.8 10^3/uL (0.0-0.8); MONO % 9.8 % (0.0-5.0); NEUTROPHILS # 15.1 10^3/uL (1.5-8.5); NEUTROPHILS % 82.7 % (36.0-66.0); PLATELET COUNT, AUTOMATED 303 10^3/uL (150-450); RED BLOOD COUNT 4.38 10^6/uL (4.00-5.40); WHITE BLOOD COUNT 18.3 10^3/uL (4.0-10.0)
[2020-02-19] MEDS ORDERED: ISOVUE-370 76% 100ML VIAL As Ordered ONE (00:59)
--- NOTE | 2020-02-19 02:23 | REPVR ---
PROCEDURE INFORMATION: Exam: CT Abdomen And Pelvis With Contrast Exam date and time: 02/18/2020 11:26 PM Age: 64 years old Clinical indication: Abdominal pain; Localized; Right lower quadrant (rlq); Additional info: Rlq pain TECHNIQUE: Imaging protocol: Computed tomography of the abdomen and pelvis with intravenous contrast. Radiation optimization: All CT scans at this facility use at least one of these dose optimization techniques: automated exposure control; mA and/or kV adjustment per patient size (includes targeted exams where dose is matched to clinical indication); or iterative reconstruction. Contrast material: ISO; Contrast volume: 100 ml; Contrast route: AC; COMPARISON: CT ABD PELVIS W/O CONTRAST 10/29/2019 4:39 PM FINDINGS: Mediastinum: Mild wall thickening in the distal esophagus. Liver: Normal. No mass. Gallbladder and bile ducts: Normal. No calcified stones. No ductal dilation. Pancreas: Normal. No ductal dilation. Spleen: Normal. No splenomegaly. Adrenals: Normal. No mass. Kidneys and ureters: Left kidney is atrophic. Nonobstructing calyceal stone in the left kidney. No hydronephrosis. Right kidney is unremarkable. Stomach and bowel: Mild circumferential wall thickening and edema in the inferior margin of the cecum. There is colonic diverticulosis without evidence of diverticulitis. Small bowel is unremarkable. No bowel obstruction. Appendix: No evidence of appendicitis. Intraperitoneal space: Unremarkable. No free air. No significant fluid collection. Vasculature: Unremarkable. No abdominal aortic aneurysm. Lymph nodes: Unremarkable. No enlarged lymph nodes. Bladder: There is a midline anterior abdominal wall hernia containing a short segment of the anterior wall of the urinary bladder, not significantly changed. No bladder calculi are seen. Mild wall thickening in the herniated segment of the bladder. Reproductive: Unremarkable as visualized. Bones/joints: There are degenerative changes in the spine and pelvis. Old healed right pelvic fractures. Soft tissues: Unremarkable. IMPRESSION: 1. Wall thickening and edema in the cecum suggesting a localized colitis or typhlitis if the patient is neutropenic or immunocompromise. 2. Colonic diverticulosis without signs of diverticulitis or bowel obstruction. 3. Atrophic left kidney with nonobstructing calyceal stones. No hydronephrosis. 4. Stable herniation of the anterior urinary bladder. Electronically signed by: Jose Nova On 02/19/2020 02:23:01 AM
[2020-02-19] MEDS ORDERED: cefTRIAXone SOD 2 GM in D5W MINI-BAG PLUS 50 ML IV ONE (02:30)
--- NOTE | 2020-02-19 02:46 | REP ---
Clinical: Shortness of breath . Comparison: 10/18/2019 . Technique: Portable AP view Findings: The mediastinum and cardiac silhouette are normal. The lung gonzalez are clear and without acute consolidation, effusion, or pneumothorax. The skeletal structures are intact and normal. Impression: 1. No acute cardiopulmonary process. Electronically Signed by Marky Puga MD 02/19/2020 02:36 A
--- NOTE | 2020-02-19 02:55 | HPEPDOC ---
[facility] Medical History & Physical Date of Admission February 19, 2020 Date of Service: February 19, 2020 Primary Care Physician: Khadijah Thomas Attending Physician: ISREAL BECERRA MD History and Physical TIME OF SERVICE 335PM CHIEF COMPLAINT: abdominal pain HISTORY OF PRESENT ILLNESS: This is a 64 yr old F who presents w c/o of 9/10 in severity lower abdominal pain, fevers, chills, body aches, weakness, 1 episode of non-blood emesis, 2 episodes of diarrhea yesterday, and dyspnea. Her chronic back pain has not changed. ROS: 12 point ROS negative except as listed in HPI PAST MEDICAL/SURGICAL HISTORY: Back and hip osteoarthritis IDDM with neuropathy COPD Chronic dependent respiratory failure (2L) Diastolic CHF Anxiety Insomnia Left sided staghorn calculus History of cystoscopy, stent placement with subsequent resection Partial hysterectomy SOCIAL HISTORY: Former smoker Doesn't drink Disease drugs FAMILY HISTORY: Father cancer ALLERGIES: Please see below. HOME MEDICATIONS: Please see below. PHYSICAL EXAMINATION: Vital Signs Date Time Temp Pulse Resp B/P (MAP) Pulse Ox O2 Delivery O2 Flow Rate FiO2 02/18/20 22:45 101.2 117 16 138/69 (92) 95 Nasal Cannula GENERAL APPEARANCE: Obese/well-developed/, not in apparent distress HEENT: NCAT / Nasal cannula in place CARDIOVASCULAR: Heart sounds & radial pulses are difficult to auscultate because of body habitus LUNGS: Breath sounds are diminished ABDOMEN: obese / soft & tender with palpation of the lower abdomen INTEGUMENT: not diaphoretic / no rash MSK: no CVA tenderness EXTREMITIES: no lower extremity edema NEUROLOGICAL: CN 2-12 grossly intact/Speech not dysarthric PSYCHIATRIC: A&O 3, able to understand and follow commands LABORATORY DATA: Immature Granulocyte % (Auto) 0.4, Neutrophils (%) (Auto) 82.7H, Lymphocytes (%) (Auto) 6.4L, Monocytes (%) (Auto) 9.8H, Eosinophils (%) (Auto) 0.3, Basophils (%) (Auto) 0.4, Neutrophils # (Auto) 15.1H, Lymphocytes # (Auto) 1.2L, Monocytes # (Auto) 1.8H, Eosinophils # (Auto) 0.1, Basophils # (Auto) 0.1, Nucleated Red Blood Cells % (auto) 0.0, Urine Color STRAW, Urine Appearance CLEAR, Urine pH 5.0, Urine Specific [place] 1.008, Urine Protein NEGATIVE, Urine Glucose (UA) NEGATIVE, Urine Ketones NEGATIVE, Urine Blood NEGATIVE, Urine Nitrite NEGATIVE, Urine Bilirubin NEGATIVE, Urine Urobilinogen 0.2, Urine Leukocyte Esterase 3+H, Urine WBC (Auto) 37H, Urine RBC (Auto) 6H, Urine Hyaline Casts (Auto) 0, Urine Bacteria (Auto) 1+H, Urine Squamous Epithelial Cells 1, Urine Yeast-Like Cells (Auto) SMALLH, Urine Sperm (Auto) , Anion Gap 8, Glomerular Filtration Rate > 60.0, Lactic Acid Level 2.7*H, Calcium Level 9.2, Total Bilirubin 0.3, Direct Bilirubin < 0.1, Aspartate Amino Transf (AST/SGOT) 14, Alanine Aminotransferase (ALT/SGPT) 22, Alkaline Phosphatase 101, Total Protein 6.6, Albumin 3.2, Albumin/Globulin Ratio 0.94L, Lipase 93 Coronavirus (COVID-19)(PCR) NEGATIVE IMAGING: Chest x-ray "Impression: 1. No acute cardiopulmonary process." CT abdomen and pelvis "IMPRESSION: 1. Wall thickening and edema in the cecum suggesting a localized colitis or typhlitis if the patient is neutropenic or immunocompromise. 2. Colonic diverticulosis without signs of diverticulitis or bowel obstruction. 3. Atrophic left kidney with nonobstructing calyceal stones. No hydronephrosis. 4. Stable herniation of the anterior urinary bladder. " MICROBIOLOGY: 02/18/20 Urine Culture, Received Pending 02/18/20 Blood Culture, Received Pending 02/18/20 Blood Culture, Received Pending ASSESSMENT: is a 64-year-old with a history of IDDM, neuropathy diastolic CHF, OA, COPD, Chronic O2 dependence, and anxiety who is admitted for management of sepsis secondary to UTI and colitis. PLAN: 1. Sepsis 2/2 Colitis & Cystitis (she doesn't have CVA tenderness) UA results and CT abdomen report reviewed SIRS criteria include temp >101 / HR >90 / WBC >12 Lactic acid >2 NEW2S Score = 8 = high risk = frequent monitoring Plan: admit to PCU / telemetry / Sepsis protocol w repeat lactic / continue with IV Rocephin and IV fluids /f/u blood cx, UA w Cx / will not order GI panel bc the diarrhea has resolved / Acetaminophen PRN for fever / target MAP 65 to 70 / f/u Is and Os with target UOP of at least 0.5 ml/kg/H / target serum glucose 140-180 while acutely ill 2. Dyspnea is likely 2/2 missing her inhalers last night. COVID-19 & chest xray were unrevealing - will give one neb treatment now. 3. COPD and IDDM with neuropathy. The pseudohyponatremia is 2/2 hyperglycemia. - diabetic diet / f/u accuchecks & A1C / hypoglycemia protocol / sliding scale insulin / determir 30 units daily (her home med is glargine 30 units SC), gabapentin/hold metformin 4. COPD with Chronic O2 dependent respiratory failure. The chronic respiratory acidosis and hypercapnea are due to the COPD - 2L O2, albuterol, prednisone 5. Chronic Diastolic CHF - lasix with potassium 6. Anxiety - bupropion with alprazolam 7. Chronic back pain / OA - [place] and lidocane patches 8. Class 1 Obesity with co-existing DM complicates care - f/u A1C DVT px w Lovenox DISPO: Home after more than 2 midnight's stay / PT consult has been placed for early mobilization to help avoid deconditioning Home Medications Scheduled Albuterol Sulf (Albuterol Sulfate) 2.5 Mg/3 Ml Nebu, 2.5 MG INH QID Allopurinol (Zyloprim) 300 Mg Tablet, 300 MG PO DAILY USES PRN FOR GOUT FLARE Bupropion HCl (Bupropion HCl Sr) 150 Mg Tab.er.12h, 150 MG PO BID Dulaglutide (Trulicity) 1.5 Mg/0.5 Ml Pen.injctr, 1 TAB PO 1XWK TUESDAYS Furosemide (Furosemide) 40 Mg Tab, 80 MG PO DAILY Gabapentin (Gabapentin) 300 Mg Cap, 300 MG PO TID Insulin Glargine,Hum.rec.anlog (Basaglar Kwikpen U-100) 100 Unit/1 Ml Insuln.pen, 30 UNIT SC QHS Metformin HCl (Metformin HCl ER) 500 Mg Tab.er.24h, 1,000 MG PO BID Potassium Chloride (Potassium Chloride) 8 Meq Tab, 16 MEQ PO DAILY Prednisone (Prednisone) 10 Mg Tablet, 10 MG PO DAILY Scheduled PRN Alprazolam (Alprazolam) 1 Mg Tab, 1 MG PO TID PRN for ANXIETY Hydrocodone/Acetaminophen (Hydrocodone-Acetamin 10-325 mg) 1 Each Tablet, 1 TAB PO TIDP PRN for PAIN Allergies Coded Allergies: No Known Allergies (Unverified , 07/26/19) A-FIB/CHADSVASC A-FIB History Current/History of A-Fib/PAF?: No Current PO Anticoag Therapy: No ISREAL BECERRA MD February 19, 2020 02:55
[2020-02-19] MEDS ORDERED: GLUCAGON INJ 1MG VIAL SC PRN (03:00)
[2020-02-19] MEDS ORDERED: DEXTROSE 50% 50 ML SYRINGE IV PRN (03:00)
[2020-02-19] MEDS ORDERED: MAALOX 30 ML SUSP *UDC PO PRN (03:00)
[2020-02-19] MEDS ORDERED: GLUCOSE 4GM CHEW TABLET PO PRN (03:00)
[2020-02-19] MEDS ORDERED: MOM 30ML SUSPENSION UDC PO PRN (03:00)
[2020-02-19 03:40] LABS: VENOUS HCO3 32.5 MEQ/L (23.0-27.0); VENOUS O2 SATURATION 84.1 % (60.0-80.0); VENOUS PARTIAL PRESSURE CO2 62.6 mmHg (38.0-50.0); VENOUS PARTIAL PRESSURE O2 50.9 mmHg (30.0-50.0); VENOUS PH 7.333 UNITS (7.330-7.430); VENOUS STANDARD HCO3 28.6 MEQ/L; VENOUS TOTAL CO2 34.4 MEQ/L (24.0-28.0)
[2020-02-19 03:47] LABS: HEMATOCRIT 35.6 % (36.0-47.0); HEMOGLOBIN 11.5 g/dl (12.0-15.5); MEAN CORPUSCULAR HEMOGLOBIN 29.6 pg (27.0-33.0); MEAN CORPUSCULAR HGB CONC 32.3 g/dl (32.0-36.5); MEAN CORPUSCULAR VOLUME 91.5 fl (80.0-96.0); PLATELET COUNT, AUTOMATED 266 10^3/uL (150-450); RED BLOOD COUNT 3.89 10^6/uL (4.00-5.40); WHITE BLOOD COUNT 17.3 10^3/uL (4.0-10.0)
[2020-02-19 03:51] VITALS: BP 118/65
[2020-02-19] MEDS ORDERED: PRED10TA2 PO (03:52)
[2020-02-19] MEDS ORDERED: METF-791 PO (03:52)
[2020-02-19 04:04] LABS: BLOOD UREA NITROGEN 18 MG/DL (7-18); CALCIUM LEVEL 7.8 MG/DL (8.8-10.2); CARBON DIOXIDE LEVEL 35 MEQ/L (21-32); CHLORIDE LEVEL 95 MEQ/L (98-107); GLOMERULAR FILTRATION RATE > 60.0 (>45); GLUCOSE, FASTING 192 MG/DL (70-100); POTASSIUM SERUM 3.9 MEQ/L (3.5-5.1); SODIUM LEVEL 138 MEQ/L (136-145)
[2020-02-19 04:05] LABS: HEMOGLOBIN A1c 8.3 %
[2020-02-19] MEDS ORDERED: ALBUTEROL SULFATE 2.5 MG/0.5 ML INH NEB SOLN NEB ONE (04:15)
[2020-02-19] MEDS ORDERED: allopurinoL 300 MG TAB PO SCH (04:15)
[2020-02-19] MEDS ORDERED: ENTER DRUG NAME HERE (PATIENT'S OWN MED) SC SCH (04:15)
[2020-02-19] MEDS ORDERED: NS 1,000 ML IV SCH (04:30)
[2020-02-19] MEDS: LEVEMIR (INSULIN DETEMIR) 1 UNITS/0.01ML SC SCH ×2 (05:02→21:57)
[2020-02-19] MEDS: GABAPENTIN 300 MG CAP PO SCH ×3 (05:02→20:01)
[2020-02-19] MEDS: ALPRAZolam 0.5 MG TAB PO PRN ×2 (05:47→16:11)
[2020-02-19] MEDS: buPROPion **SR TABLET** (ZYBAN) 150MG PO SCH ×2 (05:47→20:00)
[2020-02-19] MEDS: ANEXSIA, NORCO 7.5MG/325MG TABLET(HYDROCODONE/APAP) PO PRN ×2 (05:49→16:11)
[2020-02-19] MEDS ORDERED: HumaLOG INSULIN (NovoLOG) PER UNIT SC SCH ×3 (06:00→21:00)
[2020-02-19] MEDS: ALBUTEROL SULFATE 2.5 MG/0.5 ML INH NEB SOLN INH SCH ×5 (07:45→19:16)
[2020-02-19] MEDS: HumaLOG INSULIN (NovoLOG) PER UNIT SC SCH ×4 (07:45→21:00)
[2020-02-19 08:00] VITALS: BP 133/66
[2020-02-19] MEDS: ENOXAPARIN 40MG/0.4ML SYRINGE (J1650 PER 10MG) SC SCH (08:47)
[2020-02-19] MEDS: POTASSIUM CHLORIDE 10 MEQ SR TABLET PO SCH (08:48)
[2020-02-19] MEDS: FUROSEMIDE 40 MG TAB PO SCH (08:48)
[2020-02-19] MEDS: allopurinoL 300 MG TAB PO SCH (08:48)
[2020-02-19] MEDS: predniSONE 10 MG TAB PO SCH (08:49)
[2020-02-19] MEDS: ACETAMINOPHEN TAB 650MG DOSE (2X325MG) PO PRN ×2 (08:57→20:01)
--- NOTE | 2020-02-19 11:13 | IPNPDOC ---
Text Note Date of Service The patient was seen on 02/19/20. NOTE Subjective: Allison is lying comfortably in bed. She states she continues to have right lower quadrant abdominal pain which feels sore and sharp in nature. She rates this as an 8/10. She was able to eat breakfast without any nausea or vomiting. She has not had any episodes of diarrhea since she has been admitted. She denies fevers/chills. Objective: GENERAL: Alert, comfortable, in no acute distress HEENT: Normocephalic, atraumatic, sclerae anicteric, moist mucous membranes NECK: Supple, no lymphadenopathy CARDIOVASCULAR: Regular rate and rhythm, normal S1 and S2. No murmurs, rubs, or gallops RESPIRATORY: Clear to auscultation bilaterally with equal air entry bilaterally. No wheezing, rhonchi, or rales. ABDOMEN: Soft, obese, nondistended, bowel sounds present. , Tender to palpation in the right lower quadrant and mildly tender in the suprapubic region. No rebound, guarding, or rigidity noted. EXTREMITIES: No cyanosis or edema. Pulses 2+/4 in bilateral upper and lower extremities SKIN: [place], warm, dry NEUROLOGIC: Alert and oriented. No focal deficits appreciated PSYCHIATRIC: Mood and affect appropriate Assessment: 64-year-old female admitted for colitis and cystitis Plan: 1. Colitis, infectious versus inflammatory. Status post IV fluid hydration. Lactic acid level improved. No current nausea, vomiting or diarrhea. Tolerating regular diet. Continue with supportive care. If worsening, consider GI panel. 2. Acute cystitis. No evidence of pyelonephritis Continue IV ceftriaxone. 3. SIRS criteria. No recurrent fevers. WBC trending down. Tachycardia resolved. 4. Diabetes mellitus with neuropathy 30 units Levemir daily, sliding scale insulin coverage before meals and at bedtime. Consistent carb diet. hypoglycemic protocol 5. COPD with chronic O2 dependent respiratory failure. O2 via nasal cannula to titrate O2 saturation above 88%. At baseline, patient uses oxygen intermittently at home, typically with exertion. 6. Chronic diastolic CHF. Continue Lasix DVT prophylaxis: Lovenox. GI prophylaxis: None indicated at this time. Disposition: Pending clinical improvement Attending attestation: I evaluated and examined the patient in person; I discussed the care with Resident in detail and agree with the plan above. VS,Rebekah, I+O VS, Fishbone, I+O Laboratory Tests 02/18/20 23:37 02/19/20 03:32 Vital Signs Date Time Temp Pulse Resp B/P (MAP) Pulse Ox O2 Delivery O2 Flow Rate FiO2 02/19/20 08:00 97.5 97 18 133/66 (88) 96 Nasal Cannula 0.5 I&O- Last 24 Hours up to 6 AM 02/19/20 05:59 Intake Total 1350 ml Output Total 800 ml Balance 550 ml JAS GO D.O. February 19, 2020 11:13 MONICA BANG MD February 19, 2020 19:59
[2020-02-19 11:42] VITALS: BP 143/72
[2020-02-19 14:00] VITALS: BP 133/69
[2020-02-19 22:00] VITALS: BP 129/61
[2020-02-20] MEDS ORDERED: cefTRIAXone SOD 2 GM in D5W MINI-BAG PLUS 50 ML IV SCH ×2
[2020-02-20] MEDS: ANEXSIA, NORCO 7.5MG/325MG TABLET(HYDROCODONE/APAP) PO PRN ×3 (00:21→21:53)
[2020-02-20 06:00] VITALS: BP 159/80
[2020-02-20 07:00] LABS: HEMATOCRIT 35.4 % (36.0-47.0); HEMOGLOBIN 11.5 g/dl (12.0-15.5); MEAN CORPUSCULAR HEMOGLOBIN 29.8 pg (27.0-33.0); MEAN CORPUSCULAR HGB CONC 32.5 g/dl (32.0-36.5); MEAN CORPUSCULAR VOLUME 91.7 fl (80.0-96.0); PLATELET COUNT, AUTOMATED 264 10^3/uL (150-450); RED BLOOD COUNT 3.86 10^6/uL (4.00-5.40); WHITE BLOOD COUNT 10.8 10^3/uL (4.0-10.0)
[2020-02-20 07:12] LABS: BLOOD UREA NITROGEN 20 MG/DL (7-18); CARBON DIOXIDE LEVEL 37 MEQ/L (21-32); CHLORIDE LEVEL 97 MEQ/L (98-107); CREATININE FOR GFR 0.67 MG/DL (0.55-1.30); GLOMERULAR FILTRATION RATE > 60.0 (>45); GLUCOSE, FASTING 108 MG/DL (70-100); POTASSIUM SERUM 3.7 MEQ/L (3.5-5.1); SODIUM LEVEL 140 MEQ/L (136-145)
[2020-02-20] MEDS: ALBUTEROL SULFATE 2.5 MG/0.5 ML INH NEB SOLN INH SCH ×4 (07:31→19:15)
[2020-02-20] MEDS: ENOXAPARIN 40MG/0.4ML SYRINGE (J1650 PER 10MG) SC SCH (08:03)
[2020-02-20] MEDS: HumaLOG INSULIN (NovoLOG) PER UNIT SC SCH ×4 (08:03→21:00)
[2020-02-20] MEDS: GABAPENTIN 300 MG CAP PO SCH ×3 (08:03→20:50)
[2020-02-20] MEDS: FUROSEMIDE 40 MG TAB PO SCH (08:04)
[2020-02-20] MEDS: predniSONE 10 MG TAB PO SCH (08:04)
[2020-02-20] MEDS: POTASSIUM CHLORIDE 10 MEQ SR TABLET PO SCH (08:04)
[2020-02-20] MEDS: allopurinoL 300 MG TAB PO SCH (08:04)
[2020-02-20] MEDS: ALPRAZolam 0.5 MG TAB PO PRN ×2 (08:05→16:16)
[2020-02-20] MEDS: ACETAMINOPHEN TAB 650MG DOSE (2X325MG) PO PRN (08:05)
[2020-02-20] MEDS: buPROPion **SR TABLET** (ZYBAN) 150MG PO SCH ×3 (09:00→20:50)
[2020-02-20 10:00] VITALS: BP 157/78
[2020-02-20] MEDS ORDERED: FLUCONAZOLE 50MG TABLET PO ONE (11:00)
--- NOTE | 2020-02-20 11:21 | IPNPDOC ---
Text Note Date of Service The patient was seen on 02/20/20. NOTE Subjective: Allison is lying comfortably in bed. She states she continues to have right lower quadrant abdominal pain, not improved from yesterday. She has been able to tolerate meals without any nausea or vomiting. No diarrhea. She denies fevers/chills. Objective: GENERAL: Alert, comfortable, in no acute distress HEENT: Normocephalic, atraumatic, sclerae anicteric, moist mucous membranes NECK: Supple, no lymphadenopathy CARDIOVASCULAR: Regular rate and rhythm, normal S1 and S2. No murmurs, rubs, or gallops RESPIRATORY: Clear to auscultation bilaterally with equal air entry bilaterally. No wheezing, rhonchi, or rales. ABDOMEN: Soft, obese, nondistended, bowel sounds present. , Tender to palpation in the right lower quadrant and mildly tender in the suprapubic region. No rebound, guarding, or rigidity noted. EXTREMITIES: No cyanosis or edema. Pulses 2+/4 in bilateral upper and lower extremities SKIN: [place], warm, dry NEUROLOGIC: Alert and oriented. No focal deficits appreciated PSYCHIATRIC: Mood and affect appropriate Assessment: 64-year-old female admitted for acute colitis Plan: 1. Colitis, infectious versus inflammatory. Status post IV fluid hydration. Lactic acid level improved. No current nausea, vomiting or diarrhea. Tolerating regular diet. IV ceftriaxone and flagyl. If diarrhea returns, consider GI panel. 2. Acute cystitis. No current symptoms. Urine culture grew yeast organism, given diflucan 3. SIRS criteria. No recurrent fevers. WBC trending down. Tachycardia resolved. 4. Diabetes mellitus with neuropathy 30 units Levemir daily, sliding scale insulin coverage before meals and at bedtime. Consistent carb diet. hypoglycemic protocol 5. COPD with chronic O2 dependent respiratory failure. O2 via nasal cannula to titrate O2 saturation above 88%. At baseline, patient uses oxygen intermittently at home, typically with exertion. 6. Chronic diastolic CHF. Continue Lasix DVT prophylaxis: Lovenox. GI prophylaxis: None indicated at this time. Disposition: Pending clinical improvement Attending attestation: I evaluated and examined the patient in person; I discussed the care with Resident in detail and agree with the plan above. VS,Fishbone, I+O VS, Fishbone, I+O Laboratory Tests 02/20/20 06:07 Vital Signs Date Time Temp Pulse Resp B/P (MAP) Pulse Ox O2 Delivery O2 Flow Rate FiO2 02/20/20 11:08 16 02/20/20 10:00 97.7 80 157/78 (104) 98 Room Air 02/20/20 06:00 1.0 I&O- Last 24 Hours up to 6 AM 02/20/20 05:59 Intake Total 2200 ml Output Total 650 ml Balance 1550 ml JAS GO D.O. February 20, 2020 11:21 MONICA BANG MD February 22, 2020 16:12
[2020-02-20] MEDS: metroNIDAZOLE 500 MG in IV 1 EA IV SCH ×2 (12:51→20:50)
[2020-02-20 14:00] VITALS: BP 138/63
[2020-02-20 18:00] VITALS: BP 114/58
[2020-02-20] MEDS: LEVEMIR (INSULIN DETEMIR) 1 UNITS/0.01ML SC SCH (21:54)
[2020-02-20 22:00] VITALS: BP 150/76
[2020-02-21] MEDS ORDERED: cefTRIAXone SOD 1 GM in D5W MINI-BAG PLUS 50 ML IV SCH ×2
[2020-02-21 02:00] VITALS: BP 133/69
[2020-02-21] MEDS: ALPRAZolam 0.5 MG TAB PO PRN ×2 (02:51→10:46)
[2020-02-21] MEDS: metroNIDAZOLE 500 MG in IV 1 EA IV SCH ×2 (04:06→11:56)
[2020-02-21 06:00] VITALS: BP 117/60
[2020-02-21 07:02] LABS: BLOOD UREA NITROGEN 22 MG/DL (7-18); CALCIUM LEVEL 8.7 MG/DL (8.8-10.2); CARBON DIOXIDE LEVEL 37 MEQ/L (21-32); CHLORIDE LEVEL 99 MEQ/L (98-107); CREATININE FOR GFR 0.74 MG/DL (0.55-1.30); GLOMERULAR FILTRATION RATE > 60.0 (>45); GLUCOSE, FASTING 138 MG/DL (70-100); POTASSIUM SERUM 3.4 MEQ/L (3.5-5.1); SODIUM LEVEL 141 MEQ/L (136-145)
[2020-02-21] MEDS: ACETAMINOPHEN TAB 650MG DOSE (2X325MG) PO PRN ×2 (07:05→14:47)
[2020-02-21] MEDS: ALBUTEROL SULFATE 2.5 MG/0.5 ML INH NEB SOLN INH SCH ×3 (07:29→15:41)
[2020-02-21] MEDS: HumaLOG INSULIN (NovoLOG) PER UNIT SC SCH ×2 (07:54→11:57)
[2020-02-21] MEDS: ANEXSIA, NORCO 7.5MG/325MG TABLET(HYDROCODONE/APAP) PO PRN (07:56)
[2020-02-21] MEDS ORDERED: POTASSIUM CHLORIDE 10 MEQ SR TABLET PO ONE ×2 (08:00→10:00)
[2020-02-21] MEDS: FUROSEMIDE 40 MG TAB PO SCH (08:02)
[2020-02-21] MEDS: GABAPENTIN 300 MG CAP PO SCH (08:02)
[2020-02-21] MEDS: buPROPion **SR TABLET** (ZYBAN) 150MG PO SCH (08:02)
[2020-02-21] MEDS: predniSONE 10 MG TAB PO SCH (08:03)
[2020-02-21] MEDS: allopurinoL 300 MG TAB PO SCH (08:03)
[2020-02-21] MEDS: ENOXAPARIN 40MG/0.4ML SYRINGE (J1650 PER 10MG) SC SCH (08:03)
[2020-02-21] MEDS: POTASSIUM CHLORIDE 10 MEQ SR TABLET PO SCH (09:43)
[2020-02-21 10:00] VITALS: BP 110/71
--- NOTE | 2020-02-21 10:35 | IPNPDOC ---
Text Note Date of Service The patient was seen on 02/21/20. NOTE Subjective: Allison , sitting up comfortably on the edge of the bed. She states she is feeling significantly better today than yesterday. She is starting to feel like herself. Her right lower quadrant abdominal pain is improving. , No fevers/chills, or nausea/vomiting. She has not had a bowel movement since she first arrived. Objective: GENERAL: Alert, comfortable, in no acute distress HEENT: Normocephalic, atraumatic, sclerae anicteric, moist mucous membranes NECK: Supple, no lymphadenopathy CARDIOVASCULAR: Regular rate and rhythm, normal S1 and S2. No murmurs, rubs, or gallops RESPIRATORY: Clear to auscultation bilaterally with equal air entry bilaterally. No wheezing, rhonchi, or rales. ABDOMEN: Soft, obese, nondistended, bowel sounds present., Mildly tender to palpation in the right lower quadrant. No rebound, guarding, or rigidity noted. EXTREMITIES: No cyanosis or edema. Pulses 2+/4 in bilateral upper and lower extremities SKIN: [place], warm, dry NEUROLOGIC: Alert and oriented. No focal deficits appreciated PSYCHIATRIC: Mood and affect appropriate Assessment: 64-year-old female admitted for colitis and cystitis Plan: 1. Colitis, infectious versus inflammatory. Status post IV fluid hydration. Lactic acid level improved. No current nausea, vomiting or diarrhea. Tolerating regular diet. will switch to PO abx on discharge. 2. Acute cystitis. No current symptoms. Urine culture grew yeast organism, given Diflucan 3. SIRS criteria. No recurrent fevers. WBC trending down. Tachycardia resolved. 4. Diabetes mellitus with neuropathy 30 units Levemir daily, sliding scale insulin coverage before meals and at bedtime. Consistent carb diet. hypoglycemic protocol 5. COPD with chronic O2 dependent respiratory failure. O2 via nasal cannula to titrate O2 saturation above 88%. At baseline, patient uses oxygen intermittently at home, typically with exertion. 6. Chronic diastolic CHF. Continue Lasix DVT prophylaxis: Lovenox. GI prophylaxis: None indicated at this time. Disposition: Patient was discharged today, please see discharge summary Attending attestation: I evaluated and examined the patient in person; I discussed the care with Res maria eugeniat in detail and agree with the plan above. VS,[place], I+O VS, Fishbone, I+O Laboratory Tests 02/21/20 06:21 Vital Signs Date Time Temp Pulse Resp B/P (MAP) Pulse Ox O2 Delivery O2 Flow Rate FiO2 02/21/20 09:43 15 02/21/20 07:56 Room Air 02/21/20 06:00 96.7 75 117/60 (79) 93 2.0 I&O- Last 24 Hours up to 6 AM0 02/21/20 06:00 Intake Total 2270 ml Output Total 600 ml Balance 1670 ml JAS GO D.O. February 21, 2020 10:35 MONICA BANG MD February 22, 2020 16:17
[2020-02-21] MEDS ORDERED: CIPR-249 PO (12:02)
[2020-02-21] MEDS ORDERED: FLAG500T PO (12:02)
[2020-02-21 14:00] VITALS: BP 154/72
--- NOTE | 2020-02-21 14:34 | DS.PDOC ---
Discharge Summary General Date of Admission February 19, 2020 at 02:50 Date of Discharge February 21, 2020 Attending Physician: MONICA BANG MD Discharge Summary PROCEDURES PERFORMED DURING STAY: None. ADMITTING DIAGNOSES: 1. Sepsis 2/2 Colitis & Cystitis 2. Diabetes mellitus with neuropathy 3. COPD with Chronic O2 dependent respiratory failure 4. Chronic Diastolic CHF 5. Anxiety 6. Chronic back pain / OA DISCHARGE DIAGNOSES: 1. Infectious colitis of the cecum 2. Diabetes mellitus with neuropathy 3. COPD with Chronic O2 dependent respiratory failure 4. Chronic Diastolic CHF 5. Anxiety 6. Chronic back pain / OA COMPLICATIONS/CHIEF COMPLAINT: Colitis, Sepsis With Organ Dysfunction. HISTORY OF PRESENT ILLNESS: 64 yr old F who presents w c/o of 9/10 in severity lower abdominal pain, fevers, chills, body aches, weakness, 1 episode of non- blood emesis, 2 episodes of diarrhea yesterday, and dyspnea. Her chronic back pain has not changed. HOSPITAL COURSE: She was admitted to the hospital and given IV fluids for concern of sepsis due to elevated WBC, elevated HR, and fever. Her fever and tachycardia resolved. She was started on IV ceftriaxone for colitis and cystitis. Urine culture showed yeast and she was given a dose of diflucan. She was also started on IV flagyl. Her symptoms improved and she was able tolerate a diet. She had no recurrent diarrhea or vomiting. She was discharged with 4 days of PO ciprofloxacin and flagyl. She will take a half dose of her home [place] while on the ciprofloxacin, as this will cause it to be metabolized slower. DISCHARGE MEDICATIONS: Please see below. ALLERGIES: Please see below. PHYSICAL EXAMINATION ON DISCHARGE: VITAL SIGNS: Please see below. GENERAL: Alert, comfortable, in no acute distress HEENT: Normocephalic, atraumatic, sclerae anicteric, moist mucous membranes NECK: Supple, no lymphadenopathy CARDIOVASCULAR: Regular rate and rhythm, normal S1 and S2. No murmurs, rubs, or gallops RESPIRATORY: Clear to auscultation bilaterally with equal air entry bilaterally. No wheezing, rhonchi, or rales. ABDOMEN: Soft, obese, nondistended, bowel sounds present., Mildly tender to palpation in the right lower quadrant. No rebound, guarding, or rigidity noted. EXTREMITIES: No cyanosis or edema. Pulses 2+/4 in bilateral upper and lower extremities SKIN: [place], warm, dry NEUROLOGIC: Alert and oriented. No focal deficits appreciated PSYCHIATRIC: Mood and affect appropriate LABORATORY DATA: Please see below. IMAGIN/4 CXR: No acute cardiopulmonary process 02/17 CT abd/pelvis: 1. Wall thickening and edema in the cecum suggesting a localized colitis or typhlitis if the patient is neutropenic or immunocompromise. 2. Colonic diverticulosis without signs of diverticulitis or bowel obstruction. 3. Atrophic left kidney with nonobstructing calyceal stones. No hydronephrosis. 4. Stable herniation of the anterior urinary bladder. PROGNOSIS: Fair ACTIVITY: As tolerated. DIET: As tolerated. DISCHARGE PLAN: Home with oral antibiotics DISCHARGE INSTRUCTIONS: 1. Follow-up with your PCP in 7-10 days 2. Please complete the full course of both antibiotics 3. If your symptoms return or your condition worsens, please call your PCP or return to the ED for further evaluation. ITEMS TO FOLLOWUP ON ON OUTPATIENT: None DISCHARGE CONDITION: Stable. TIME SPENT ON DISCHARGE: Greater than 35 minutes. Attending attestation: I evaluated and examined the patient in person; I discussed the care with Resident in detail and agree with the plan above. Vital Signs/I&Os Vital Signs Date Time Temp Pulse Resp B/P (MAP) Pulse Ox O2 Delivery O2 Flow Rate FiO2 02/21/20 10:00 97.7 77 20 110/71 (84) 96 Nasal Cannula 2.0 I&O- Last 24 Hours up to 6 AM 02/21/20 06:00 Intake Total 2270 ml Output Total 600 ml Balance 1670 ml Laboratory Data Labs 24H Laboratory Tests 2 02/20/20 16:31: Bedside Glucose (Misc Panel) 306H 02/20/20 20:23: Bedside Glucose (Misc Panel) 217H 02/21/20 06:21: Anion Gap 5L, Glomerular Filtration Rate > 60.0, Calcium Level 8.7L 02/21/20 11:35: Bedside Glucose (Misc Panel) 204H CBC/BMP Laboratory Tests 02/21/20 06:21 FSBS Laboratory Tests Test 02/20/20 16:31 02/20/20 20:23 02/21/20 11:35 Range/Units Bedside Glucose (Misc Panel) 306 217 204 80-115 MG/DL Microbiology Microbiology 02/18/20 Urine Culture - Final, Complete Yeast Like Organism 02/18/20 Blood Culture - Preliminary, Resulted No Growth after 48 hours. All Specime... 02/18/20 Blood Culture - Preliminary, Resulted No Growth after 48 hours. All Specime... Discharge Medications Scheduled Albuterol Sulf (Albuterol Sulfate) 2.5 Mg/3 Ml Nebu, 2.5 MG INH QID, (Reported) Allopurinol (Zyloprim) 300 Mg Tablet, 300 MG PO DAILY, (Reported) USES PRN FOR GOUT FLARE Bupropion HCl (Bupropion HCl Sr) 150 Mg Tab.er.12h, 150 MG PO BID, (Reported) Ciprofloxacin HCl (Cipro) 500 Mg Tablet, 500 MG PO BID Dulaglutide (Trulicity) 1.5 Mg/0.5 Ml Pen.injctr, 1 TAB PO 1XWK, (Reported) TUESDAYS Furosemide (Furosemide) 40 Mg Tab, 80 MG PO DAILY, (Reported) Gabapentin (Gabapentin) 300 Mg Cap, 300 MG PO TID, (Reported) Insulin Glargine,Hum.rec.anlog (Basaglar Kwikpen U-100) 100 Unit/1 Ml Insuln.pen, 30 UNIT SC QHS, (Reported) Metformin HCl (Metformin HCl ER) 500 Mg Tab.er.24h, 1,000 MG PO BID, (Reported) Metronidazole (Flagyl) 500 Mg Tablet, 500 MG PO BID Potassium Chloride (Potassium Chloride) 8 Meq Tab, 16 MEQ PO DAILY, (Reported) Prednisone (Prednisone) 10 Mg Tablet, 10 MG PO DAILY, (Reported) Scheduled PRN Alprazolam (Alprazolam) 1 Mg Tab, 1 MG PO TID PRN for ANXIETY, (Reported) Hydrocodone/Acetaminophen (Hydrocodone-Acetamin 10-325 mg) 1 Each Tablet, 1 TAB PO TIDP PRN for PAIN, (Reported) Allergies Coded Allergies: No Known Allergies (Unverified , 07/26/19) JAS GO D.O. February 21, 2020 14:34 MONICA BANG MD February 22, 2020 16:22
== END 2020-02-21 15:15 | disposition home or self-care (01) | DRG 249 ==
LOC: M ED 22:43 → M ED INP 02-19 02:50 → ENRESERV 02-19 03:19 → M PCU 02-19 03:51 → M MSPAV 02-19 11:40
PROVIDERS: ADMIT Internal Medicine; ATTEND Internal Medicine
DX: A09 Infectious gastroenteritis and colitis, unspecified (principal); J96.12 Chronic respiratory failure with hypercapnia; I50.32 Chronic diastolic (congestive) heart failure; E11.40 Type 2 diabetes mellitus with diabetic neuropathy, unspecified; Z99.81 Dependence on supplemental oxygen; N30.00 Acute cystitis without hematuria; E11.65 Type 2 diabetes mellitus with hyperglycemia; J44.9 Chronic obstructive pulmonary disease, unspecified; D41.9 Neoplasm of uncertain behavior of unspecified urinary organ; B37.49 Other urogenital candidiasis; G47.00 Insomnia, unspecified; Z87.891 Personal history of nicotine dependence; Z87.442 Personal history of urinary calculi; M19.90 Unspecified osteoarthritis, unspecified site; E66.9 Obesity, unspecified; Z79.52 Long term (current) use of systemic steroids; Z79.84 Long term (current) use of oral hypoglycemic drugs; Z79.899 Other long term (current) drug therapy; Z68.33 Body mass index [BMI] 33.0-33.9, adult

== ENCOUNTER → 2020-03-27 | Outpatient (CLI) | payer OTHER ==
[~2020-03-27] MED LIST changes: +FLAG500T PO; +METF-838 PO; +TRUL0.5I PO
--- NOTE | 2020-04-01 02:39 | ECWPNPC ---
PATIENT NAME: MAN KANG : 1955 GENDER: FEMALE VISIT DATE: 03/27/2020 DISCHARGE DATE: 03/27/20 1258 VISIT LOCKED DATE TIME: PHYSICIAN: ARMINDA BURKS RESOURCE: ARMINDA BURKS REASON FOR APPOINTMENT 1. BACK HISTORY OF PRESENT ILLNESS GENERAL: PATIENT IS AGREEABLE TO TELEPHONE VISIT TODAY. IT'S BEEN 11 MONTHS SINCE SHE WAS LAST SEEN AT OUR CLINIC. HISTORY OF MULTIPLE COMORBIDITIES. HISTORY OF FREQUENT HOSPITALIZATIONS. LAST HOSPITALIZATION WAS APPROXIMATELY 5 WEEKS AGO FOR KIDNEY PROBLEMS. COMPLAINING OF NECK PAIN TODAY. I'VE ADVISED HER TO REVIEW THAT PROBLEM WITH HER PRIMARY CARE PROVIDER. WE HAVE A REFERRAL FOR HER LOWER BACK ISSUES. WILL NEED TO SEE HER IN THE CLINIC FOR A PHYSICAL EXAM TO DEVELOP A TREATMENT PLAN. -. FALL RISK SCREENING: SCREENING :NO FALLS REPORTED IN THE LAST YEAR PAIN SCREENING: PATIENT HAS A COMPLAINT OF ACUTE OR CHRONIC PAIN :YES 03/27/20 INTENSITY OF PAIN (SCALE OF 1 TO 10):8 WHAT DOES YOUR PAIN FEEL LIKE:ACHING, CONTINOUS PAIN IS INCREASED BY: MORNINGS PAIN IS DECREASED BY: MEDS NURSING NOTE: -. PAIN CENTER INTAKE QUESTIONS: DO YOU HAVE A HISTORY OF MRSA? :YES KIDNEYS DO YOU TAKE A BLOOD THINNERS? :NO DO YOU HAVE ANY BLEEDING DISORDERS? :NO ANY NEW NUMBNESS OR WEAKNESS IN YOUR LEGS OR ARMS? :NO ANY PACEMAKER,DEFIBRILLATOR, OR DORSAL COLUMN STIMULATOR? :NO DO YOU HAVE ANY RASHES OR OPEN SORES? :NO ARE YOU ALLERGIC TO IV DYE? :NO ARE YOU DIABETIC? :YES ANY NEW PROBLEMS WITH YOUR MEDICATIONS? :NO HAVE YOU RECEIVED A VACCINE IN THE PAST 30 DAYS? :NO DO YOU PLAN TO RECEIVE A VACCINE IN THE NEXT 21 DAYS? :NO DO YOU NEED ANY PRESCRIPTION? :NO DO YOU TAKE ANY IMMUNOSUPPRESSIVE MEDICATIONS? :NO IS THERE A CHANCE YOU COULD BE ? :NO ARE YOU BREAST FEEDING? :NO CURRENT MEDICATIONS TAKING TOUJEO SOLOSTAR 300 UNIT/ML SOLUTION PEN-INJECTOR 13 UNITS SUBCUTANEOUS BID TAKING METFORMIN 100 MG 1 TAB ORAL BID TAKING TRAZODONE HCL 50 MG TABLET 1/2 TABLET AT BEDTIME NEEDED ORALLY ONCE A DAY TAKING HYDROCODONE-ACETAMINOPHEN 7.5-325 MG TABLET 1 TABLET NEEDED ORALLY EVERY 6 HRS TAKING VENTOLIN HFA 108 (90 BASE) MCG/ACT AEROSOL SOLUTION 2 PUFFS NEEDED INHALATION EVERY 4 HRS TAKING ALBUTEROL TAKING XANAX 1 MG TABLET 1 TABLET ORALLY TWICE A DAY TAKING LASIX 40 MG TABLET 1 TABLET ORALLY ONCE A DAY TAKING POTASSIUM CHLORIDE 20 MEQ PACKET 1 PACKET WITH FOOD ORALLY ONCE A DAY TAKING ADVAIR DISKUS 100-50 MCG/DOSE AEROSOL POWDER BREATH ACTIVATED 1 PUFF INHALATION TWICE A DAY TAKING TIZANIDINE HCL 4 MG TABLET 1 TABLET NEEDED ORALLY THREE TIMES A DAY NOT-TAKING PYRIDIUM 200 MG TABLET 1 TABLET AFTER MEALS ORALLY THREE TIMES A DAY NOT-TAKING METHENAMINE HIPPURATE 1 GM TABLET 1 TABLET ORALLY TWICE A DAY NOT-TAKING DIFLUCAN 150 MG TABLET 1 TABLET ORALLY DIRECTED NOT-TAKING PREDNISONE 10 MG TABLET 1 TABLET ORALLY ONCE A DAY NOT-TAKING LEVAQUIN 500 MG TABLET 1 TABLET ORALLY ONCE A DAY NOT-TAKING LEVOFLOXACIN 500 MG TABLET 1 TABLET ORALLY ONCE A DAY NOT-TAKING CYCLOBENZAPRINE HCL 10 MG TABLET 1 TABLET ORALLY THREE TIMES A DAY NOT-TAKING LISINOPRIL 10 MG TABLET 1 TABLET ORALLY ONCE A DAY MEDICATION LIST REVIEWED AND RECONCILED WITH THE PATIENT PAST MEDICAL HISTORY SEPSIS SECONDARY TO LEFT LOWER LEG ABSCESS UTI CHF ACUTE HYPOXIC RESPIRATORY DISTRESS LEFT STAGHORN CALCULUS COPD DM INSOMNIA ANXIETY SIGMOID DIVERTICULOSIS CHOLELITHIASIS/SLUDGE W/I GALLBLADDER FUNDUS LOW BACK PAIN ALLERGIES N.K.D.A. SURGICAL HISTORY CYST REMOVED FROM LEFT THIGH PARTIAL HYSTERECTOMY CYSTOSCOPY WITH LEFT STENT REMOVAL [id number] FAMILY HISTORY FATHER: , DIAGNOSED WITH OTHER MALIGNANT NEOPLASM OF UNSPECIFIED SITE MOTHER: , OTHER SPECIFIED CONDITIONS INFLUENCING HEALTH STATUS 1 BROTHER(S) , 4 SISTER(S) . 2 SON(S) , 1 DAUGHTER(S) - HEALTHY. BROTHER - - [place], STROKESISTERS - HEALTHYSON - - ACCIDENTAL DRUG OVERDOSE. SOCIAL HISTORY GENERAL: TOBACCO USE ARE YOU A:FORMER SMOKER HOW LONG HAS IT BEEN SINCE YOU LAST SMOKED?6-12 MONTHS LATEX QUESTIONNAIRE LATEX ALLERGY : HAVE YOU EVER DEVELOPED ANY TYPE OF REACTION AFTER HANDLING LATEX PRODUCTS SUCH RUBBER GLOVES, CONDOMS, DIAPHRAGMS, BALLOONS, SOCKS, OR UNDERWEAR?NO LATEX ALLERGY : HAVE YOU EVER DEVELOPED ANY TYPE OF REACTION DURING OR AFTER DENTAL APPOINTMENT, VAGINAL/RECTAL EXAMINATION, SURGICAL PROCEDURE, OR ANY OTHER EXPOSURE?NO DATE ASKED : 08/20/2019 LATEX RISK : HAVE YOU EVER HAD ANY DIFFICULTY BREATHING OR HIVES AFTER EATING OR HANDLING ANY FRUITS, OR VEGETABLES; SUCH KIWI, BANANAS, STONE FRUITS, OR CHESTNUTSNO LATEX RISK : DO YOU HAVE A PREVIOUS PERSONAL HISTORY OF MORE THAN NINE SURGERIES, SPINA BIFIDA, OR REPEATED CATHERIZATIONS? NO LATEX RISK : ARE YOU FREQUENTLY EXPOSED TO LATEX PRODUCTS IN YOUR OCCUPATION?NO ALCOHOL SCREENING DID YOU HAVE A DRINK CONTAINING ALCOHOL IN THE PAST YEAR?NO POINTS0 INTERPRETATIONNEGATIVE RECREATIONAL DRUG USE DRUG USE?NO CAFFEINE CAFFEINE USE?YES HOW OFTEN AND HOW MUCH? 1 CUP COFFEE DAILY SEXUAL HX HAD SEX IN THE LAST 12 MONTHS (VAGINAL, ORAL, OR ANAL)?NO HAVE YOU EVER HAD AN STD?NO BUDDHISM BUDDHISM NO SABIANISM BELIEFS THAT WOULD IMPACT HEALTH CARE. 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 DIET: REGULAR. EXERCISE: NO REGULAR EXERCISE. PAIN CLINIC PFS, CLERGY, PUBLIC HEALTH REFERRALS HAS THE PATIENT BEEN EDUCATED REGARDING HIS/HER PLAN OF CARE?YES HAS THE PATIENT BEEN EDUCATED REGARDING PAIN, THE RISK FOR PAIN, THE IMPORTANCE OF EFFECTIVE PAIN MANAGEMENT, AND THE PAIN ASSESSMENT PROCESS?YES ADVANCE DIRECTIVE ADVANCE DIRECTIVE DISCUSSED WITH PATIENT:YES HCP - MARISA HENSON (BOYFRIEND) REVIEWED WITH PATIENT 05/01/19 Nelson RASHID. HOSPITALIZATION/MAJOR DIAGNOSTIC PROCEDURE [facility] -- RIGHT SACROILITIS, LUMBAR RADICULOPATHY 03/2019 COPD, PNEUMONIA BACK PAIN 04/2019 UTI, DIVERTICULITIS REVIEW OF SYSTEMS CONSTITUTIONAL: ANY RECENT FEVER OR ILLNESS YES COMPLAINING OF HEAD AND NECK PAIN. STATES SHE FEELS SHE MAY HAVE A SINUS INFECTION. . CHILLS NO . GASTROENTEROLOGY: BOWEL INCONTINENCE NO . ANY NEW CHANGE IN BOWEL CONTROL? NO . ABDOMINAL PAIN NO . CONSTIPATION NO . GENITOURINARY: ANY NEW CHANGE IN BLADDER CONTROL? NO . IS THERE A CHANCE YOU COULD BE ? NO . URINARY INCONTINENCE NO . CARDIOLOGY: CHEST PRESSURE NO . CHEST PAIN NO . RESPIRATORY: COUGH NO . SHORTNESS OF BREATH NO . ASSESSMENTS MYALGIA, OTHER SITE - M79.18 (PRIMARY) SACROILIITIS, NOT ELSEWHERE CLASSIFIED - M46.1 TREATMENT MYALGIA, OTHER SITE NOTES: SCHEDULE IN CLINIC VISIT FOR PHYSICAL EXAM AND REVIEW FOR PROCEDURES FOR CHRONIC LOW BACK PAIN. TOTAL TIME SPENT DURING TELEPHONE INTERVIEW WAS APPROXIMATELY 12 MINUTES. OTHERS CLINICAL NOTES: PRE SCREENING CALL DONE 03/27/20 EM. DISPOSITION & COMMUNICATION FOLLOW UP 6 WEEKS IN CLINIC VISIT (REASON: LOW BACK PAIN) ELECTRONICALLY SIGNED BY LOUIE PALAFOX ON 03/31/2020 AT 11:53 AM EDT DISCLAIMER : THIS IS A VISIT SUMMARY EXTRACTED FROM THE [facility] CHART. IT IS NOT A COPY OF THE [facility] PROGRESS NOTE. MARILUZ
== END ==
LOC: M PAIN 14:15
PROVIDERS: ATTEND Nurse Practitioner Family
DX: M79.18 Myalgia, other site (principal); M46.1 Sacroiliitis, not elsewhere classified

== ENCOUNTER → 2020-03-29 | Outpatient (REF) | payer OTHER | LOC: M WUC 17:45 | PROVIDERS: ATTEND Physician Assistant | DX: R31.9 Hematuria, unspecified (principal) ==

== ENCOUNTER 2020-05-27 21:15 | Emergency (ER) | payer OTHER ==
[2020-05-27] MEDS ORDERED: GABAPENTIN 300 MG CAP As Ordered ONE (22:53)
[2020-05-27] MEDS ORDERED: GABAPENTIN 300 MG CAP ONE (22:53)
--- NOTE | 2020-07-03 14:58 | ECGEPIP ---
[facility] R[facility] SEE SCANNED DOWNTIME REPORT MTDD
[2020-07-12 07:49] LABS: BASO # 0.1 10^3/uL (0.0-0.2); BASO % 0.7 % (0.0-1.0); EOS # 0.1 10^3/uL (0.0-0.5); EOS % 0.4 % (0.0-3.0); HEMATOCRIT 44.2 % (36.0-47.0); LYMPH # 3.1 10^3/uL (1.5-5.0); LYMPH % 24.8 % (24.0-44.0); MEAN CORPUSCULAR HEMOGLOBIN 29.5 pg (27.0-33.0); MEAN CORPUSCULAR HGB CONC 31.7 g/dl (32.0-36.5); MEAN CORPUSCULAR VOLUME 93.1 fl (80.0-96.0); MONO # 1.5 10^3/uL (0.0-0.8); MONO % 11.8 % (0.0-5.0); NEUTROPHILS # 7.6 10^3/uL (1.5-8.5); NEUTROPHILS % 60.5 % (36.0-66.0); PLATELET COUNT, AUTOMATED 293 10^3/uL (150-450); RED BLOOD COUNT 4.75 10^6/uL (4.00-5.40); WHITE BLOOD COUNT 12.5 10^3/uL (4.0-10.0)
[2020-08-19 03:06] LABS: ACETONE/KETONE 0.88 MG/DL (<2.81); BLOOD UREA NITROGEN 32 MG/DL (7-18); CALCIUM LEVEL 9.2 MG/DL (8.8-10.2); CARBON DIOXIDE LEVEL 37 MEQ/L (21-32); CHLORIDE LEVEL 101 MEQ/L (98-107); CK-MB VALUE MASS 2.5 NG/ML (<3.6); CPK CREATINE PHOSPHOKINASE 40 U/L (26-192); CREATININE FOR GFR 0.81 MG/DL (0.55-1.30); GLOMERULAR FILTRATION RATE > 60.0 (>45); GLUCOSE, FASTING 135 MG/DL (70-100); MB/CK RELATIVE INDEX 6.25 (< OR =4); NT-PRO BNP 159 PG/ML (<125); POTASSIUM SERUM 4.2 MEQ/L (3.5-5.1); SODIUM LEVEL 141 MEQ/L (136-145); TROPONIN I < 0.02 NG/ML (< 0.10)
[2020-08-19 03:13] LABS: OSMOLALITY SERUM 309 MOSM/KG (280-301)
== END 2020-05-28 02:35 | disposition home or self-care (01) ==
LOC: M ED 21:15
DX: I50.9 Heart failure, unspecified (principal); E11.9 Type 2 diabetes mellitus without complications; J44.9 Chronic obstructive pulmonary disease, unspecified; Z99.81 Dependence on supplemental oxygen; Z87.891 Personal history of nicotine dependence; Z79.899 Other long term (current) drug therapy; Z79.52 Long term (current) use of systemic steroids

== ENCOUNTER 2020-09-03 05:55 | Emergency (ER) | payer MEDICARE, OTHER ==
[~2020-09-03] VITALS: Ht 165.1 cm; Wt 87.3 kg
[~2020-09-03 05:55] MED LIST changes: +COLC0.6T47 PO; -COLC1TAB13 PO; +NICO1DIS12 TD; -NICO21DI31 TD
[2020-09-03] MEDS ORDERED: INDO-16 PO (06:10)
[2020-09-03 06:59] LABS: BASO # 0.1 10^3/uL (0.0-0.2); EOS # 0.2 10^3/uL (0.0-0.5); EOS % 2.2 % (0.0-3.0); HEMATOCRIT 41.6 % (36.0-47.0); HEMOGLOBIN 13.1 g/dl (12.0-15.5); LYMPH % 30.3 % (24.0-44.0); MEAN CORPUSCULAR HEMOGLOBIN 28.2 pg (27.0-33.0); MEAN CORPUSCULAR HGB CONC 31.5 g/dl (32.0-36.5); MEAN CORPUSCULAR VOLUME 89.7 fl (80.0-96.0); MONO # 1.1 10^3/uL (0.0-0.8); MONO % 16.5 % (0.0-5.0); NEUTROPHILS # 3.3 10^3/uL (1.5-8.5); NEUTROPHILS % 49.6 % (36.0-66.0); PLATELET COUNT, AUTOMATED 286 10^3/uL (150-450); RED BLOOD COUNT 4.64 10^6/uL (4.00-5.40); WHITE BLOOD COUNT 6.7 10^3/uL (4.0-10.0)
[2020-09-03 07:09] LABS: INR 0.92; PROTHROMBIN TIME 12.5 SECONDS (12.5-14.3)
[2020-09-03 07:10] LABS: PARTIAL THROMBOPLASTIN TIME 27.7 SECONDS (24.2-38.5)
--- NOTE | 2020-09-03 07:11 | REPVR ---
PROCEDURE INFORMATION: Exam: XR Chest, 1 View Exam date and time: 09/03/2020 6:50 AM Age: 64 years old Clinical indication: Shortness of breath; Additional info: SOB TECHNIQUE: Imaging protocol: XR of the chest Views: 1 view. COMPARISON: KS Chest, 1 view 02/19/2020 1:40 AM FINDINGS: Lungs: Left retrocardiac density may represent atelectasis versus pneumonia. Right lung is clear. Pleural space: Small left pleural effusion. Right pleural space is clear. Heart/Mediastinum: Cardiomegaly . Vasculature: Mild atherosclerosis. Bones/joints: Unremarkable. IMPRESSION: Left retrocardiac density may represent atelectasis versus pneumonia. Right lung is clear. Small left pleural effusion. Right pleural space is clear. Electronically signed by: Natalie Donnelly On 09/03/2020 07:11:47 AM
[2020-09-03 07:27] LABS: ERYTHROCYTE SEDIMENTATION RATE 37 mm/hr (0-30)
--- NOTE | 2020-09-03 07:27 | ECGEPIP ---
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
[2020-09-03 07:32] LABS: ALBUMIN 3.5 GM/DL (3.2-5.2); ALT/SGPT 29 U/L (12-78); BILIRUBIN,DIRECT < 0.1 MG/DL (0.0-0.2); BILIRUBIN,TOTAL 0.2 MG/DL (0.2-1.0); BLOOD UREA NITROGEN 22 MG/DL (7-18); C REACTIVE PROTEIN QUANTITATIV 1.53 MG/DL (0.00-0.30); CALCIUM LEVEL 9.8 MG/DL (8.8-10.2); CARBON DIOXIDE LEVEL 34 MEQ/L (21-32); CHLORIDE LEVEL 98 MEQ/L (98-107); CK-MB VALUE MASS 2.3 NG/ML (<3.6); CPK CREATINE PHOSPHOKINASE 64 U/L (26-192); CREATININE FOR GFR 0.74 MG/DL (0.55-1.30); GLOMERULAR FILTRATION RATE > 60.0 (>45); GLUCOSE, FASTING 197 MG/DL (70-100); MB/CK RELATIVE INDEX 3.59 (< OR =4); NT-PRO BNP 52 PG/ML (<125); SODIUM LEVEL 137 MEQ/L (136-145); TOTAL PROTEIN 6.9 GM/DL (6.4-8.2); TROPONIN I < 0.02 NG/ML (< 0.10)
[2020-09-03] MEDS ORDERED: ISOVUE-370 76% 100ML VIAL As Ordered ONE (07:50)
[2020-09-03] MEDS ORDERED: NORCO, ANEXSIA 5/325MG TABLET (HYDROcodone/ACETAMINOPHEN) PO ONE (08:15)
[2020-09-03] MEDS ORDERED: GABAPENTIN 300 MG CAP PO ONE (08:15)
--- NOTE | 2020-09-03 08:57 | REP ---
INDICATION: swelling and pain R/O DVT COMPARISON: None. TECHNIQUE: Real time compression and duplex Doppler interrogation of the bilateral lower extremity deep venous system is performed. FINDINGS: Bilaterally, the common femoral, superficial femoral and popliteal veins are fully compressible with transducer pressure and demonstrate normal spontaneous and phasic flow, without evidence of deep venous thrombosis. IMPRESSION: No evidence of deep venous thrombosis of the bilateral lower extremity femoral popliteal venous system. <Electronically signed by Sebastian Richards > 09/03/20 0896
--- NOTE | 2020-09-03 09:08 | REP ---
INDICATION: leg pain, sob, r/o PE. COMPARISON: 01/02/2019. TECHNIQUE: CT angiogram chest performed following the intravenous administration of 100 cc of Isovue 370. Sagittal and coronal reconstruction images are performed. FINDINGS: Study is limited by patient motion. Lungs: There is stable fibro atelectasis in the lingula. Mediastinum: No adenopathy. Pulmonary arteries: No evidence of pulmonary embolism. Deirdre: No adenopathy. Axilla: No adenopathy. Pleura: No effusion. Heart: There is mild cardiomegaly. Thoracic aorta: No aneurysm or dissection. Upper abdominal structures: There may be some mild diffuse thickening of the distal half of the esophagus. This was present on the prior study as well. This may indicate chronic esophagitis. There is stable mild thickening of the left adrenal gland. There is 9 mm calculus in the upper pole of the left kidney. Visualized osseous structures: There are mild degenerative changes of the spine without compression deformity. IMPRESSION: No CT evidence of pulmonary embolism.No infiltrate seen. Mild cardiomegaly. Possible mild diffuse chronic thickening distal esophagus may indicate chronic esophagitis. <Electronically signed by Sebastian Richards > 09/03/20 0905
[2020-09-03 09:15] VITALS: BP 151/67
[2020-09-03] MEDS ORDERED: FUROSEMIDE 40MG/4ML VIAL (J1940) IV ONE (09:15)
== END 2020-09-03 10:11 | disposition home or self-care (01) ==
LOC: M ED 05:55
DX: R22.43 Localized swelling, mass and lump, lower limb, bilateral (principal); I48.91 Unspecified atrial fibrillation; I50.9 Heart failure, unspecified; E11.40 Type 2 diabetes mellitus with diabetic neuropathy, unspecified; I10 Essential (primary) hypertension; E78.5 Hyperlipidemia, unspecified; K21.9 Gastro-esophageal reflux disease without esophagitis; J44.9 Chronic obstructive pulmonary disease, unspecified; K57.92 Diverticulitis of intestine, part unspecified, without perforation or abscess without bleeding; Z79.4 Long term (current) use of insulin; Z79.899 Other long term (current) drug therapy
CPT/HCPCS: 71045; 71275; 80048; 80076; 82550; 82553; 83880; 84484; 85025; 85610; 85652; 85730; 86140; 93005; 93041; 93970; 94760; 96374; 99284; J1940; Q9967

== ENCOUNTER → 2020-09-29 | Outpatient (CLI) | payer OTHER ==
[~2020-09-29] MED LIST changes: +INDO-16 PO
--- NOTE | 2020-09-29 19:34 | REP ---
INDICATION: KIDNEY STONE. COMPARISON: Comparison KUB study August 20, 2019.. TECHNIQUE: Two supine views. FINDINGS: There is a triangular calcification overlying the lateral wall of the bladder in the left pelvis which could be ureteral. This is fairly large. It was not present on August 20, 2019. It measures 8.5 mm in greatest diameter. There is also a calcific opacity projecting in the lower pole of the left kidney measuring 3 mm. No other urinary tract calculus is seen. Review of the CT study from February 19, 2020 shows a triangular shaped intrarenal calculus lower pole left kidney approximately the size of the opacity seen in the left pelvis today. IMPRESSION: Findings suspicious for a 8.5 mm distal ureteral calculus on the left near the ureterovesical junction. There is a small intrarenal calculus in the lower pole of the kidney on the left. <Electronically signed by Andrsé Lucas > 09/29/201929
== END ==
LOC: M RAD 16:23
PROVIDERS: ATTEND Specialist
DX: N20.0 Calculus of kidney (principal)

== ENCOUNTER → 2020-10-02 | Outpatient (REF) | payer MEDICARE, OTHER ==
[~2020-10-02] MED LIST changes: +ALPR0.5T3 PO; +AUGM0.0534 TOP; +DITR5TAB PO; +KEFL250C11 PO; +PYRI1TAB5 PO; +TRAM50TA2 PO
[2020-10-02 11:30] LABS: HEMATOCRIT 40.7 % (36.0-47.0); HEMOGLOBIN 12.4 g/dl (12.0-15.5); MEAN CORPUSCULAR HEMOGLOBIN 27.7 pg (27.0-33.0); MEAN CORPUSCULAR HGB CONC 30.5 g/dl (32.0-36.5); MEAN CORPUSCULAR VOLUME 90.8 fl (80.0-96.0); PLATELET COUNT, AUTOMATED 376 10^3/uL (150-450); RED BLOOD COUNT 4.48 10^6/uL (4.00-5.40); WHITE BLOOD COUNT 8.9 10^3/uL (4.0-10.0)
[2020-10-02 12:15] LABS: CALCIUM LEVEL 9.2 MG/DL (8.8-10.2); CREATININE FOR GFR 1.01 MG/DL (0.55-1.30); GLOMERULAR FILTRATION RATE 58.7 (>45); POTASSIUM SERUM 4.2 MEQ/L (3.5-5.1)
== END ==
LOC: M PLALAB 10:50
PROVIDERS: ATTEND Urology
DX: N20.0 Calculus of kidney (principal)

== ENCOUNTER → 2020-10-02 | Outpatient (REF) | payer MEDICARE, OTHER | LOC: M SMT 13:32 | PROVIDERS: ATTEND Urology | DX: N20.0 Calculus of kidney (principal) ==

== ENCOUNTER 2020-10-03 09:04 | Day surgery (SDC) | payer MEDICARE, MEDICAID ==
[~2020-10-03] VITALS: Ht 165.1 cm; Wt 87.3 kg
[~2020-10-03 09:04] MED LIST changes: -ALPR0.5T3 PO; -AUGM0.0534 TOP; -DITR5TAB PO; -KEFL250C11 PO; -PYRI1TAB5 PO; -TRAM50TA2 PO
[2020-10-03 10:10] LABS: BASO # 0.1 10^3/uL (0.0-0.2); BASO % 0.9 % (0.0-1.0); EOS # 0.2 10^3/uL (0.0-0.5); HEMATOCRIT 39.7 % (36.0-47.0); HEMOGLOBIN 12.1 g/dl (12.0-15.5); LYMPH # 2.1 10^3/uL (1.5-5.0); LYMPH % 25.8 % (24.0-44.0); MEAN CORPUSCULAR HEMOGLOBIN 27.6 pg (27.0-33.0); MEAN CORPUSCULAR HGB CONC 30.5 g/dl (32.0-36.5); MEAN CORPUSCULAR VOLUME 90.6 fl (80.0-96.0); MONO % 12.7 % (0.0-5.0); NEUTROPHILS # 4.7 10^3/uL (1.5-8.5); NEUTROPHILS % 57.9 % (36.0-66.0); PLATELET COUNT, AUTOMATED 328 10^3/uL (150-450); RED BLOOD COUNT 4.38 10^6/uL (4.00-5.40); WHITE BLOOD COUNT 8.1 10^3/uL (4.0-10.0)
[2020-10-03] MEDS ORDERED: NS 500 ML IV ONE (10:30)
[2020-10-03 10:32] LABS: ALBUMIN 3.3 GM/DL (3.2-5.2); ALT/SGPT 20 U/L (12-78); BILIRUBIN,DIRECT < 0.1 MG/DL (0.0-0.2); BILIRUBIN,TOTAL 0.1 MG/DL (0.2-1.0); LIPASE 293 U/L (73-393); TOTAL PROTEIN 6.8 GM/DL (6.4-8.2)
[2020-10-03] MEDS ORDERED: AUGM0.0534 TOP (10:32)
[2020-10-03] MEDS ORDERED: TRAM50TA2 PO (10:32)
[2020-10-03] MEDS ORDERED: ALPR0.5T3 PO (10:32)
[2020-10-03] MEDS ORDERED: VENTAER INH (10:32)
--- NOTE | 2020-10-03 11:01 | REP ---
INDICATION: pre-op for OR. COMPARISON: Comparison chest x-ray September 03, 2020. TECHNIQUE: Two views.. FINDINGS: The lungs are well inflated and clear. Pleural angles are sharp. The heart is moderately enlarged. Cardiothoracic ratio is 55.3%. Heart size is felt to be unchanged. Pulmonary vasculature is not increased. Oxygen delivery tubing is noted. No definite infiltrate. IMPRESSION: Moderate cardiomegaly. Otherwise no acute disease.. <Electronically signed by Andrés Lucas > 10/03/20 [id number]
[2020-10-03] MEDS ORDERED: MIDAZOLAM INJ 2MG/2ML VIAL (J2250 PER 1MG) As Ordered ONE (12:46)
[2020-10-03] MEDS ORDERED: CONRAY-60 60% 50ML VIAL (Q9961) As Ordered ONE (12:46)
[2020-10-03] MEDS ORDERED: LIDOCAINE 2% 100MG/5ML SDV (FOR ANES.) As Ordered ONE (12:46)
[2020-10-03] MEDS ORDERED: propofoL 200 MG/20 ML VIAL As Ordered ONE (12:46)
[2020-10-03] MEDS ORDERED: fentaNYL 100 MCG/2 ML INJECTION (J3010) As Ordered ONE (12:47)
[2020-10-03] MEDS ORDERED: ROCURONIUM BROMIDE 50 MG/5 ML VIAL As Ordered ONE (13:27)
[2020-10-03] MEDS ORDERED: ceFAZolin 2 GM/D5W 50 ML IV BAG (J0690 PER 500MG) As Ordered ONE (13:36)
[2020-10-03] MEDS ORDERED: ONDANSETRON 4MG/2ML VIAL As Ordered ONE (14:15)
[2020-10-03] MEDS ORDERED: ACETAMINOPHEN 1000MG 100ML IV BTL (OFIRMEV) (J0131 PER 10MG) As Ordered ONE (14:15)
[2020-10-03] MEDS ORDERED: SUGAMMADEX SODIUM 500 MG/5 ML VIAL (BRIDION) As Ordered ONE (14:15)
[2020-10-03] MEDS ORDERED: SUCCINYLCHOLINE 100 MG/5 ML SYRINGE (J0330) As Ordered ONE (14:15)
[2020-10-03] MEDS ORDERED: dexameTHASONE 4 MG/ML 1ML VIAL (J1100 PER 1MG) As Ordered ONE (14:15)
[2020-10-03] MEDS ORDERED: HYDROmorphone HCL 2 MG/ML 1ML VIAL (J1170) As Ordered ONE (14:29)
[2020-10-03] MEDS ORDERED: ePHEDrine SULFATE 25 MG/5 ML(5MG/ML) SYRINGE As Ordered ONE (14:35)
[2020-10-03] MEDS ORDERED: PHENYLephrine HCL 500 MCG/5 ML (100MCG/ML) SYRINGE (J2370) As Ordered ONE (14:35)
--- NOTE | 2020-10-03 15:15 | REP ---
INDICATION: LEFT CYSTOSCOPY, LASER LITHOTRIPSY, POSSIBLE STENT PLACEMENT. COMPARISON: None. TECHNIQUE: Single-view. 21 seconds of fluoroscopy time. FINDINGS: A single last image hold fluoroscopically obtained spot radiograph of the abdomen document left ureteral stent position. IMPRESSION: Procedural imaging. <Electronically signed by Andrés Lucas > 10/03/20 0379
[2020-10-03] MEDS ORDERED: DITR5TAB PO (15:26)
[2020-10-03] MEDS ORDERED: KEFL250C11 PO (15:26)
[2020-10-03] MEDS ORDERED: PYRI1TAB5 PO (15:26)
[2020-10-03] MEDS ORDERED: LR 1,000 ML IV SCH (16:00)
[2020-10-03] MEDS ORDERED: METOCLOPRAMIDE INJ 10MG/2ML VIAL (J2765 PER 1) IV PRN (16:00)
[2020-10-03] MEDS ORDERED: fentaNYL 100 MCG/2 ML INJECTION (J3010) IV PRN (16:00)
[2020-10-03] MEDS ORDERED: ONDANSETRON 4MG/2ML VIAL IV PRN (16:00)
[2020-10-03] MEDS ORDERED: PERCOCET 5MG/325MG TAB PO PRN (16:00)
[2020-10-03 16:40] VITALS: BP 148/73
--- NOTE | 2020-10-03 20:18 | RO ---
OPERATIVE NOTE DATE OF OPERATION: 10/03/2020 PREOPERATIVE DIAGNOSIS: Left distal ureteral and left renal calculi. POSTOPERATIVE DIAGNOSIS: Left distal ureteral and left renal calculi. PROCEDURE PERFORMED: Left ureteroscopic stone extraction with laser lithotripsy and basket extraction of stone. Left uteroscopic stone extraction of left renal stone, left stent placement. SURGEON: Tyler Odonnell M.D. ANESTHESIA: General INDICATION: This 64-year-old lady with a past history of sepsis of urinary origin related to stones and previous staghorn calculus managed with percutaneous nephrolithotomy in 2019 on the left side presented with left-sided colicky pain and was found to have an 8 to 9 mm distal left ureteral stone, as well as a left lower pole calculus. She had no fevers, but she had multiple trips to the emergency room over the last several weeks with severe colicky pain on the left side. PROCEDURE: After obtaining informed consent from the patient, she was taken to the operating after adequate induction anesthetic. She was prepped and draped in the usual manner. The 22 Romanian diagnostic cystoscope was advanced into the bladder, the bladder inspected. No lesions were seen. The urine was somewhat cloudy. It was irrigated clear. A wire was passed on the left to the kidney under fluoroscopic control without difficulty. The rigid mini ureteroscope was then advanced along the wire and the stone was encountered in the distal ureter. Using the 272 micron fiber and Holmium energy, the stone was fragmented into multiple small pieces, which then were removed using a stone basket. With the distal ureter completely cleared, we advanced the flexible uretero-renoscope over the wire into the kidney. All calices were inspected. Debris was irrigated from the kidney and the stone was visualized in one of the inferior peripheral calices. We flushed it out the lower pole into the renal pelvis where it was readily grasped with Nitinol basket and withdrawn without difficulty. The procedure was concluded by re-passing the safety guidewire at the left side and positioning a 5 Romanian universal stent over the wire with string attached. Stent positioning was confirmed fluoroscopically and endoscopically. The patient went to recovery in satisfactory condition. COMPLICATIONS: None. ESTIMATED BLOOD LOSS: Less than 5 ml. DISPOSITION: The patient is dismissed home on Pyridium 200 mg three times a day. Dysuria, Ditropan XL5 mg daily, Keflex 250 mg h.s and tramadol, a supple of which she has at home from a prescription written yesterday. Follow up in 7 to 10 days for office cystoscopy and stent removal. DIET: Home diet. ACTIVITY: Light.
--- NOTE | 2020-10-05 12:13 | ECGEPIP ---
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
== END 2020-10-03 16:46 | disposition home or self-care (01) ==
LOC: M ED 09:04 → M SDC 09:05
PROVIDERS: ATTEND Urology
DX: N20.2 Calculus of kidney with calculus of ureter (principal); I11.0 Hypertensive heart disease with heart failure; E78.5 Hyperlipidemia, unspecified; I50.9 Heart failure, unspecified; J44.9 Chronic obstructive pulmonary disease, unspecified; E66.9 Obesity, unspecified; G47.33 Obstructive sleep apnea (adult) (pediatric); E11.9 Type 2 diabetes mellitus without complications; M10.9 Gout, unspecified; N17.9 Acute kidney failure, unspecified; Z79.899 Other long term (current) drug therapy; Z90.710 Acquired absence of both cervix and uterus
CPT/HCPCS: 52356; 71046; 74420; 80047; 80076; 83690; 85025; 87205; 88300; 93005; 99284; C1769; C2617; J0131; J0690; J1100; J1170; J2250; J2370; J2405; J3010; U0002

== ENCOUNTER → 2020-10-29 | Outpatient (CLI) | payer MEDICARE, OTHER ==
[~2020-10-29] MED LIST changes: +ALPR0.5T3 PO; +AUGM0.0534 TOP; +DITR5TAB PO; +GABA-282 PO; -GABA-843 PO; +KEFL250C11 PO; +LISI10TA22 PO; -LISI10TA4 PO; +PYRI1TAB5 PO; +TRAM50TA2 PO
--- NOTE | 2020-10-30 23:04 | ECWPNPC ---
PATIENT NAME: MAN KANG : 1955 GENDER: FEMALE VISIT DATE: 10/29/2020 DISCHARGE DATE: 10/29/20 1121 VISIT LOCKED DATE TIME: PHYSICIAN: ARMINDA BURKS RESOURCE: ARMINDA BURKS REASON FOR APPOINTMENT 1. INCREASED PAIN HISTORY OF PRESENT ILLNESS DEPRESSION SCREENING: PHQ-9 LITTLE INTEREST OR PLEASURE IN DOING THINGSNOT AT ALL FEELING DOWN, DEPRESSED, OR HOPELESSSEVERAL DAYS TROUBLE FALLING OR STAYING ASLEEP, OR SLEEPING TOO MUCHNOT AT ALL FEELING TIRED OR HAVING LITTLE ENERGYNOT AT ALL POOR APPETITE OR OVEREATING NOT AT ALL FEELING BAD ABOUT YOURSELF-OR THAT YOU ARE A FAILURE OR HAVE LET YOURSELF OR YOUR FAMILY DOWN NOT AT ALL TROUBLE CONCENTRATING ON THINGS, SUCH READING THE NEWSPAPER OR WATCHING TELEVISION MORE THAN HALF THE DAYS MOVING OR SPEAKING SO SLOWLY THAT OTHER PEOPLE COULD HAVE NOTICED. OR THE OPPOSITE- BEING SO FIDGETY OR RESTLESS THAT YOU HAVE BEEN MOVING AROUND A LOT MORE THAN USUALNOT AT ALL THOUGHTS THAT YOU WOULD BE BETTER OFF , OR OF HURTING YOURSELF IN SOME WAY?NOT AT ALL TOTAL SCORE:3 INTERPRETATIONMINIMAL DEPRESSION PHQ-2 (2015 EDITION) LITTLE INTEREST OR PLEASURE IN DOING THINGS?NOT AT ALL FEELING DOWN, DEPRESSED, OR HOPELESS?MORE THAN HALF THE DAYS TOTAL SCORE2 GENERAL: MAN IS BEING SEEN ON AN URGENT BASIS TODAY DUE TO SEVERE INCREASE IN RIGHT-SIDED LOW BACK PAIN. ALSO STATES THAT NEUROPATHY PAIN IN HER LEGS AND FEET HAVE BEEN VERY BAD OVER THE PAST FEW WEEKS. HAS APPOINTMENT WITH PRIMARY CARE PROVIDER DR. NOONAN TO HAVE THAT EVALUATED IN THE NEXT FEW WEEKS. REVIEWED MRI OF THE LS-SPINE. PATIENT HAS HAD RIGHT SACROILIAC JOINT BLOCK IN THE PAST WITH IMPROVEMENT IN HER PAIN. PATIENT WOULD LIKE TO HAVE THIS DONE AGAIN. HAD KIDNEY STONES REMOVED A FEW MONTHS AGO. SUFFERING FROM LEFT LOW BACK PAIN THAT SHE IS RELATING TO THAT. DENIES RECENT INJURY. REPORTING NORMAL BOWEL AND BLADDER FUNCTION. PATIENT IS A POOR HISTORIAN. - -. FALL RISK SCREENING: SCREENING :NO FALLS REPORTED IN THE LAST YEAR PAIN SCREENING: PATIENT HAS A COMPLAINT OF ACUTE OR CHRONIC PAIN :YES LOCATION OF PAIN:LOW BACK, LEFT HIP, RIGHT HIP, LEG(S) INTENSITY OF PAIN (SCALE OF 1 TO 10):10 WHAT DOES YOUR PAIN FEEL LIKE:BURNING, SHARP, STABBING, SORE, SHOOTING DURATION:CONTINOUS, AWAKENS FROM SLEEP PAIN IS INCREASED BY:ACTIVITIES, PROLONGED STANDING WALKING PAIN IS DECREASED BY:USE OF PAIN MEDICATIONS HYDROCODONE TREATMENT/MEDICATIONS USED TO MANAGE PAIN:OPIOIDS LEVEL OF RELIEF FROM PAIN TREATMENTS IN THE PAST:25% NURSING NOTE: - -. PAIN CENTER INTAKE QUESTIONS: DO YOU HAVE A HISTORY OF MRSA? :NO DO YOU TAKE A BLOOD THINNERS? :NO DO YOU HAVE ANY BLEEDING DISORDERS? :NO ANY NEW NUMBNESS OR WEAKNESS IN YOUR LEGS OR ARMS? :NO ANY PACEMAKER,DEFIBRILLATOR, OR DORSAL COLUMN STIMULATOR? :NO DO YOU HAVE ANY RASHES OR OPEN SORES? :NO ARE YOU ALLERGIC TO IV DYE? :NO ARE YOU DIABETIC? :YES ANY NEW PROBLEMS WITH YOUR MEDICATIONS? :NO HAVE YOU RECEIVED A VACCINE IN THE PAST 30 DAYS? :NO DO YOU PLAN TO RECEIVE A VACCINE IN THE NEXT 21 DAYS? :YES PATIENT WOULD LIKE TO RECEIVE THE COVID VACCINATION WHEN IT BECOMES AVAILABLE. DO YOU NEED ANY PRESCRIPTION? :NO DO YOU TAKE ANY IMMUNOSUPPRESSIVE MEDICATIONS? :YES IS THERE A CHANCE YOU COULD BE ? :NO ARE YOU BREAST FEEDING? :NO CURRENT MEDICATIONS TAKING GABAPENTIN 300 MG CAPSULE 1 CAPSULE ORALLY TID, NOTES: PATIENT UNSURE OF DOSE TAKING PREDNISONE 10 MG TABLET 1 TABLET ORALLY ONCE A DAY, NOTES: PRN TAKING TRAZODONE HCL 50 MG TABLET 1/2 TABLET AT BEDTIME NEEDED ORALLY ONCE A DAY TAKING TOUJEO SOLOSTAR 300 UNIT/ML SOLUTION PEN-INJECTOR 13 UNITS SUBCUTANEOUS BID TAKING METFORMIN 100 MG 1 TAB ORAL QID TAKING HYDROCODONE-ACETAMINOPHEN 7.5-325 MG TABLET 1 TABLET NEEDED ORALLY EVERY 6 HRS TAKING VENTOLIN HFA 108 (90 BASE) MCG/ACT AEROSOL SOLUTION 2 PUFFS NEEDED INHALATION EVERY 4 HRS TAKING ALBUTEROL 0.083% AEROSOL SOLUTION DIRECTED INHALATION THREE TIMES DAILY NEEDED TAKING XANAX 1 MG TABLET 1 TABLET ORALLY TWICE A DAY TAKING LASIX 40 MG TABLET 1 TABLET ORALLY ONCE A DAY TAKING POTASSIUM CHLORIDE 20 MEQ TABLET EXTENDED RELEASE 1 PACKET WITH FOOD ORALLY ONCE A DAY NOT-TAKING POTASSIUM 1 TAB ORAL DAILY NOT-TAKING ADVAIR DISKUS 100-50 MCG/DOSE AEROSOL POWDER BREATH ACTIVATED 1 PUFF INHALATION TWICE A DAY NOT-TAKING TIZANIDINE HCL 4 MG TABLET 1 TABLET NEEDED ORALLY THREE TIMES A DAY NOT-TAKING TRAMADOL HCL 50 MG TABLET 1 TABLET NEEDED ORALLY FOUR TIMES DAILY NEEDED, MDD 4 NOT-TAKING PYRIDIUM 200 MG TABLET 1 TABLET AFTER MEALS ORALLY THREE TIMES A DAY NOT-TAKING METHENAMINE HIPPURATE 1 GM TABLET 1 TABLET ORALLY TWICE A DAY NOT-TAKING DIFLUCAN 150 MG TABLET 1 TABLET ORALLY DIRECTED NOT-TAKING LEVAQUIN 500 MG TABLET 1 TABLET ORALLY ONCE A DAY NOT-TAKING LEVOFLOXACIN 500 MG TABLET 1 TABLET ORALLY ONCE A DAY NOT-TAKING CYCLOBENZAPRINE HCL 10 MG TABLET 1 TABLET ORALLY THREE TIMES A DAY NOT-TAKING LISINOPRIL 10 MG TABLET 1 TABLET ORALLY ONCE A DAY MEDICATION LIST REVIEWED AND RECONCILED WITH THE PATIENT PAST MEDICAL HISTORY SEPSIS SECONDARY TO LEFT LOWER LEG ABSCESS UTI CHF ACUTE HYPOXIC RESPIRATORY DISTRESS LEFT STAGHORN CALCULUS COPD DM INSOMNIA ANXIETY SIGMOID DIVERTICULOSIS CHOLELITHIASIS/SLUDGE W/I GALLBLADDER FUNDUS LOW BACK PAIN KIDNEY STONES ALLERGIES N.K.D.A. SURGICAL HISTORY CYST REMOVED FROM LEFT THIGH PARTIAL HYSTERECTOMY CYSTOSCOPY WITH LEFT STENT REMOVAL [id number] URETEROSCOPY WITH STENT PLACEMENT 09/2020 CYSTO WITH LEFT STENT REMOVAL 10/20/2020 FAMILY HISTORY FATHER: , DIAGNOSED WITH OTHER MALIGNANT NEOPLASM OF UNSPECIFIED SITE MOTHER: , OTHER SPECIFIED CONDITIONS INFLUENCING HEALTH STATUS 1 BROTHER(S) , 4 SISTER(S) . 2 SON(S) , 1 DAUGHTER(S) - HEALTHY. BROTHER - - [place], STROKESISTERS - HEALTHYSON - - ACCIDENTAL DRUG OVERDOSE. SOCIAL HISTORY GENERAL: TOBACCO USE ARE YOU A:FORMER SMOKER HOW LONG HAS IT BEEN SINCE YOU LAST SMOKED?6-12 MONTHS LATEX QUESTIONNAIRE LATEX ALLERGY : HAVE YOU EVER DEVELOPED ANY TYPE OF REACTION AFTER HANDLING LATEX PRODUCTS SUCH RUBBER GLOVES, CONDOMS, DIAPHRAGMS, BALLOONS, SOCKS, OR UNDERWEAR?NO LATEX ALLERGY : HAVE YOU EVER DEVELOPED ANY TYPE OF REACTION DURING OR AFTER DENTAL APPOINTMENT, VAGINAL/RECTAL EXAMINATION, SURGICAL PROCEDURE, OR ANY OTHER EXPOSURE?NO LATEX RISK : HAVE YOU EVER HAD ANY DIFFICULTY BREATHING OR HIVES AFTER EATING OR HANDLING ANY FRUITS, OR VEGETABLES; SUCH KIWI, BANANAS, STONE FRUITS, OR CHESTNUTSNO LATEX RISK : DO YOU HAVE A PREVIOUS PERSONAL HISTORY OF MORE THAN NINE SURGERIES, SPINA BIFIDA, OR REPEATED CATHERIZATIONS? NO LATEX RISK : ARE YOU FREQUENTLY EXPOSED TO LATEX PRODUCTS IN YOUR OCCUPATION?NO DATE ASKED : 10/29/2020 ALCOHOL SCREENING DID YOU HAVE A DRINK CONTAINING ALCOHOL IN THE PAST YEAR?NO POINTS0 INTERPRETATIONNEGATIVE RECREATIONAL DRUG USE DRUG USE?NO CAFFEINE CAFFEINE USE?YES HOW OFTEN AND HOW MUCH? 1 CUP COFFEE DAILY SEXUAL HX HAD SEX IN THE LAST 12 MONTHS (VAGINAL, ORAL, OR ANAL)?NO HAVE YOU EVER HAD AN STD?NO JAIN JAIN NO SIKH BELIEFS THAT WOULD IMPACT HEALTH CARE. 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 DIET: REGULAR. EXERCISE: NO REGULAR EXERCISE. PAIN CLINIC PFS, CLERGY, PUBLIC HEALTH REFERRALS HAS THE PATIENT BEEN EDUCATED REGARDING HIS/HER PLAN OF CARE?YES HAS THE PATIENT BEEN EDUCATED REGARDING PAIN, THE RISK FOR PAIN, THE IMPORTANCE OF EFFECTIVE PAIN MANAGEMENT, AND THE PAIN ASSESSMENT PROCESS?YES ADVANCE DIRECTIVE ADVANCE DIRECTIVE DISCUSSED WITH PATIENT:YES HCP - MARISA HENSON (BOYFRIEND) REVIEWED WITH PATIENT 05/01/19 Nelson RASHID. HOSPITALIZATION/MAJOR DIAGNOSTIC PROCEDURE [facility] -- RIGHT SACROILITIS, LUMBAR RADICULOPATHY 03/2019 COPD, PNEUMONIA BACK PAIN 04/2019 UTI, DIVERTICULITIS REVIEW OF SYSTEMS CONSTITUTIONAL: ANY RECENT FEVER NO . CHILLS NO . WEIGHT CHANGE OF UNKNOWN REASONS NO . GASTROENTEROLOGY: NEW UNEXPLAINABLE CHANGES IN BOWEL CONTROL NO . CONSTIPATION NO . GENITOURINARY: ANY NEW CHANGE IN BLADDER CONTROL? NO . NEUROLOGY: NEW ONSET DIZZINESS OR NEUROLOGICAL CHANGES NOT MENTIONED NO . NEW NUMBNESS OR PAIN PATTERNS NOT MENTIONED AND PERTINENT TO TODAY'S VISIT NO . CARDIOLOGY: NEW CHEST PRESSURE NO . NEW CHEST PAIN NO . RESPIRATORY: UNEXPLAINABLE COUGH NO . NEW SHORTNESS OF BREATH NO . VITAL SIGNS WT 212 LBS, HT 62 IN, BMI 38.77 INDEX, BP 184/124 MM HG, REPEAT BP 158/82 MANUAL, HR 104 /MIN, RR 20 /MIN, TEMP 98.7 F, OXYGEN SAT % 95 W/2 LITERS NASAL CANNULA, SAFE IN ENV? (Y/N) YESPROVIDER NOTIFIED OF VITAL SIGNS. REPEAT MANUAL BP TAKEN RIGHT ARM. KARL YING MA. EXAMINATION GENERAL EXAMINATION: GENERAL ALERT,NO DISTRESS . PSYCH AFFECT NORMAL . LUNGS: LUNG SOUNDS ARE CLEAR . HEART: HEART RATE REGULAR . MUSCULOSKELETAL: MST 5/5 BILAT. LOWER EXTREMITIES . LUMBAR: TENDERNESS RIGHT. SIJ MODIFIED ANUPAMA'S TESTING OVER RIGHT LEG POSITIVE. DIAGNOSTIC TESTS REVIEWEDMRI L/S SPINE 2019. ASSESSMENTS SACROILIITIS, NOT ELSEWHERE CLASSIFIED - M46.1 (PRIMARY) TREATMENT SACROILIITIS, NOT ELSEWHERE CLASSIFIED NOTES: RIGHT SACROILIAC JOINT BLOCK . PROCEDURE CODES FA211 ESTABILISHED PATIENT FORMERLY [facility] CHARGE DISPOSITION & COMMUNICATION FOLLOW UP POST PROCEDURE (REASON: RIGHT SACROILIAC JOINT BLOCK) ELECTRONICALLY SIGNED BY LOUIE PALAFOX ON 10/30/2020 AT 10:32 AM EST DISCLAIMER : THIS IS A VISIT SUMMARY EXTRACTED FROM THE [employer] CHART. IT IS NOT A COPY OF THE [employer] PROGRESS NOTE. MARILUZ
== END ==
LOC: M PAIN 09:30
PROVIDERS: ATTEND Nurse Practitioner Family
DX: M46.1 Sacroiliitis, not elsewhere classified (principal); E11.9 Type 2 diabetes mellitus without complications; J44.9 Chronic obstructive pulmonary disease, unspecified; G47.00 Insomnia, unspecified; Z86.59 Personal history of other mental and behavioral disorders; Z87.891 Personal history of nicotine dependence; Z79.4 Long term (current) use of insulin; Z79.899 Other long term (current) drug therapy

== ENCOUNTER → 2020-11-12 | Outpatient (REF) | payer MEDICARE, OTHER ==
[2020-11-12 16:50] LABS: APPEARANCE, URINE TURBID (CLEAR); BACTERIA, URINE AUTO NEGATIVE (NEGATIVE); BILIRUBIN, URINE AUTO NEGATIVE (NEGATIVE); BLOOD, URINE BLOOD 1+ (NEGATIVE); COLOR, URINE YELLOW (YELLOW); GLUCOSE, URINE (UA) AUTO 1+ mg/dL (NEGATIVE); KETONE, URINE AUTO NEGATIVE (NEGATIVE); LEUKOCYTE ESTERASE, URINE AUTO 3+ (NEGATIVE); NITRITE, URINE AUTO NEGATIVE (NEGATIVE); PROTEIN, URINE AUTO 1+ mg/dL (NEGATIVE); RBC, URINE AUTO 25 /HPF (0-3); SPECIFIC GRAVITY URINE AUTO 1.014 (1.002-1.035); SQUAMOUS EPITHELIAL CELL UR AU 5 /HPF (0-6); UROBILINOGEN, URINE AUTO 0.2 mg/dL (0.0-2.0); WBC, URINE AUTO TNTC /HPF (0-3)
== END ==
LOC: M LABSMT 13:12 → M SFHCADAM 13:12
PROVIDERS: ATTEND Nurse Practitioner Women's Health
DX: R30.0 Dysuria (principal)

== ENCOUNTER → 2020-12-12 | Outpatient (CLI) | payer MEDICARE, MEDICAID ==
--- NOTE | 2020-12-21 23:08 | ECWPNPC ---
PATIENT NAME: MAN KANG : 1955 GENDER: FEMALE VISIT DATE: 12/12/2020 DISCHARGE DATE: 12/12/20 1042 VISIT LOCKED DATE TIME: PHYSICIAN: ARMINDA BURKS RESOURCE: ARMINDA BURKS REASON FOR APPOINTMENT 1. FEET/HIP PAIN HISTORY OF PRESENT ILLNESS GENERAL: HERE FOR FOLLOW-UP OF CHRONIC LOW BACK PAIN. HAD TO CANCEL LAST PROCEDURE DUE TO KIDNEY STONE REMOVAL. THAT WAS DONE IN THE BEGINNING OF OCTOBER. PAIN IS LOCATED ACROSS LOWER BACK. ALSO COMPLAINS OF BILATERAL FOOT PAIN THAT SHE MEDICATES WITH GABAPENTIN PER [facility]. THIS DOES NOT SEEM TO BE HELPING HER FOOT PAIN. REPORTS POOR SLEEP AT NIGHT DUE TO FOOT PAIN. SHE WILL CONTACT [facility] TO SEE IF HER MEDICATION CAN BE ADJUSTED.-. FALL RISK SCREENING: SCREENING : NO FALLS REPORTED IN THE LAST YEAR. PAIN SCREENING: PATIENT HAS A COMPLAINT OF ACUTE OR CHRONIC PAIN :YES LOCATION OF PAIN:LEFT HIP, RIGHT HIP, FEET INTENSITY OF PAIN (SCALE OF 1 TO 10):8 WHAT DOES YOUR PAIN FEEL LIKE:ACHING, CONTINOUS DURATION:CONTINOUS, CONSTANT, ALL DAY PAIN IS INCREASED BY:ACTIVITIES PAIN IS DECREASED BY:OTHERS HEATING PAD NURSING NOTE: -. PAIN CENTER INTAKE QUESTIONS: DO YOU HAVE A HISTORY OF MRSA? :NO DO YOU TAKE A BLOOD THINNERS? :NO DO YOU HAVE ANY BLEEDING DISORDERS? :NO ANY NEW NUMBNESS OR WEAKNESS IN YOUR LEGS OR ARMS? :NO ANY PACEMAKER,DEFIBRILLATOR, OR DORSAL COLUMN STIMULATOR? :NO DO YOU HAVE ANY RASHES OR OPEN SORES? :NO ARE YOU ALLERGIC TO IV DYE? :NO ARE YOU DIABETIC? :YES ANY NEW PROBLEMS WITH YOUR MEDICATIONS? :NO HAVE YOU RECEIVED A VACCINE IN THE PAST 30 DAYS? :NO DO YOU PLAN TO RECEIVE A VACCINE IN THE NEXT 21 DAYS? :YES PATIENT WOULD LIKE TO RECEIVE THE COVID VACCINATION WHEN IT BECOMES AVAILABLE. DO YOU NEED ANY PRESCRIPTION? :NO DO YOU TAKE ANY IMMUNOSUPPRESSIVE MEDICATIONS? :YES IS THERE A CHANCE YOU COULD BE ? :NO ARE YOU BREAST FEEDING? :NO CURRENT MEDICATIONS TAKING GABAPENTIN 300 MG CAPSULE 1 CAPSULE ORALLY TID TAKING TRAZODONE HCL 50 MG TABLET 1/2 TABLET AT BEDTIME NEEDED ORALLY ONCE A DAY TAKING METFORMIN 100 MG 1 TAB ORAL QID TAKING HYDROCODONE-ACETAMINOPHEN 7.5-325 MG TABLET 1 TABLET NEEDED ORALLY EVERY 6 HRS TAKING VENTOLIN HFA 108 (90 BASE) MCG/ACT AEROSOL SOLUTION 2 PUFFS NEEDED INHALATION EVERY 4 HRS TAKING ALBUTEROL 0.083% AEROSOL SOLUTION DIRECTED INHALATION THREE TIMES DAILY NEEDED TAKING XANAX 1 MG TABLET 1 TABLET ORALLY TWICE A DAY TAKING LASIX 40 MG TABLET 1 TABLET ORALLY ONCE A DAY TAKING POTASSIUM CHLORIDE 20 MEQ TABLET EXTENDED RELEASE 1 PACKET WITH FOOD ORALLY ONCE A DAY NOT-TAKING PREDNISONE 10 MG TABLET 1 TABLET ORALLY ONCE A DAY NOT-TAKING TOUJEO SOLOSTAR 300 UNIT/ML SOLUTION PEN-INJECTOR 13 UNITS SUBCUTANEOUS BID NOT-TAKING POTASSIUM 1 TAB ORAL DAILY NOT-TAKING ADVAIR DISKUS 100-50 MCG/DOSE AEROSOL POWDER BREATH ACTIVATED 1 PUFF INHALATION TWICE A DAY NOT-TAKING TIZANIDINE HCL 4 MG TABLET 1 TABLET NEEDED ORALLY THREE TIMES A DAY NOT-TAKING TRAMADOL HCL 50 MG TABLET 1 TABLET NEEDED ORALLY FOUR TIMES DAILY NEEDED, MDD 4 NOT-TAKING PYRIDIUM 200 MG TABLET 1 TABLET AFTER MEALS ORALLY THREE TIMES A DAY NOT-TAKING METHENAMINE HIPPURATE 1 GM TABLET 1 TABLET ORALLY TWICE A DAY NOT-TAKING DIFLUCAN 150 MG TABLET 1 TABLET ORALLY DIRECTED NOT-TAKING LEVAQUIN 500 MG TABLET 1 TABLET ORALLY ONCE A DAY NOT-TAKING LEVOFLOXACIN 500 MG TABLET 1 TABLET ORALLY ONCE A DAY NOT-TAKING CYCLOBENZAPRINE HCL 10 MG TABLET 1 TABLET ORALLY THREE TIMES A DAY NOT-TAKING LISINOPRIL 10 MG TABLET 1 TABLET ORALLY ONCE A DAY MEDICATION LIST REVIEWED AND RECONCILED WITH THE PATIENT PAST MEDICAL HISTORY SEPSIS SECONDARY TO LEFT LOWER LEG ABSCESS UTI CHF ACUTE HYPOXIC RESPIRATORY DISTRESS LEFT STAGHORN CALCULUS COPD DM INSOMNIA ANXIETY SIGMOID DIVERTICULOSIS CHOLELITHIASIS/SLUDGE W/I GALLBLADDER FUNDUS LOW BACK PAIN KIDNEY STONES 10/20/20 ALLERGIES N.K.D.A. SURGICAL HISTORY CYST REMOVED FROM LEFT THIGH PARTIAL HYSTERECTOMY CYSTOSCOPY WITH LEFT STENT REMOVAL [id number] URETEROSCOPY WITH STENT PLACEMENT 09/2020 CYSTO WITH LEFT STENT REMOVAL 10/20/2020 SOCIAL HISTORY GENERAL: TOBACCO USE ARE YOU A:FORMER SMOKER HOW LONG HAS IT BEEN SINCE YOU LAST SMOKED?6-12 MONTHS LATEX QUESTIONNAIRE LATEX ALLERGY : HAVE YOU EVER DEVELOPED ANY TYPE OF REACTION AFTER HANDLING LATEX PRODUCTS SUCH RUBBER GLOVES, CONDOMS, DIAPHRAGMS, BALLOONS, SOCKS, OR UNDERWEAR?NO LATEX ALLERGY : HAVE YOU EVER DEVELOPED ANY TYPE OF REACTION DURING OR AFTER DENTAL APPOINTMENT, VAGINAL/RECTAL EXAMINATION, SURGICAL PROCEDURE, OR ANY OTHER EXPOSURE?NO LATEX RISK : HAVE YOU EVER HAD ANY DIFFICULTY BREATHING OR HIVES AFTER EATING OR HANDLING ANY FRUITS, OR VEGETABLES; SUCH KIWI, BANANAS, STONE FRUITS, OR CHESTNUTSNO LATEX RISK : DO YOU HAVE A PREVIOUS PERSONAL HISTORY OF MORE THAN NINE SURGERIES, SPINA BIFIDA, OR REPEATED CATHERIZATIONS? NO LATEX RISK : ARE YOU FREQUENTLY EXPOSED TO LATEX PRODUCTS IN YOUR OCCUPATION?NO DATE ASKED : 12/12/2020 ALCOHOL USE: NO. ALCOHOL SCREENING DID YOU HAVE A DRINK CONTAINING ALCOHOL IN THE PAST YEAR?NO POINTS0 INTERPRETATIONNEGATIVE RECREATIONAL DRUG USE DRUG USE?NO CAFFEINE CAFFEINE USE?YES HOW OFTEN AND HOW MUCH? 1 CUP COFFEE DAILY SEXUAL HX HAD SEX IN THE LAST 12 MONTHS (VAGINAL, ORAL, OR ANAL)?NO HAVE YOU EVER HAD AN STD?NO TAOIST TAOIST NO SAMARITAN BELIEFS THAT WOULD IMPACT HEALTH CARE. 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 DIET: REGULAR. EXERCISE: NO REGULAR EXERCISE. - HAS THE PATIENT BEEN EDUCATED REGARDING HIS/HER PLAN OF CARE?YES HAS THE PATIENT BEEN EDUCATED REGARDING PAIN, THE RISK FOR PAIN, THE IMPORTANCE OF EFFECTIVE PAIN MANAGEMENT, AND THE PAIN ASSESSMENT PROCESS?YES ADVANCE DIRECTIVE ADVANCE DIRECTIVE DISCUSSED WITH PATIENT:YES HCP - MARISA HENSON (BOYFRIEND) REVIEWED WITH PATIENT 05/01/19 1007 JS. HOSPITALIZATION/MAJOR DIAGNOSTIC PROCEDURE [facility] -- RIGHT SACROILITIS, LUMBAR RADICULOPATHY 03/2019 COPD, PNEUMONIA BACK PAIN 04/2019 UTI, DIVERTICULITIS REVIEW OF SYSTEMS CONSTITUTIONAL: ANY RECENT FEVER NO . CHILLS NO . WEIGHT CHANGE OF UNKNOWN REASONS NO . GASTROENTEROLOGY: NEW UNEXPLAINABLE CHANGES IN BOWEL CONTROL NO . CONSTIPATION NO . GENITOURINARY: ANY NEW CHANGE IN BLADDER CONTROL? NO . NEUROLOGY: NEW ONSET DIZZINESS OR NEUROLOGICAL CHANGES NOT MENTIONED NO . NEW NUMBNESS OR PAIN PATTERNS NOT MENTIONED AND PERTINENT TO TODAY'S VISIT NO . CARDIOLOGY: NEW CHEST PRESSURE NO . PATIENT DENIES NO . RESPIRATORY: UNEXPLAINABLE COUGH NO . NEW SHORTNESS OF BREATH NO . VITAL SIGNS WT 205 LBS, HT 62 IN, BMI 37.49 INDEX, BP 153/83 MM HG, HR 103 /MIN, RR 18 /MIN, TEMP 98.5 F, OXYGEN SAT % 95%, SAFE IN ENV? (Y/N) YEST.SYDNI ARTHUR. EXAMINATION GENERAL EXAMINATION: GENERAL ALERT,NO DISTRESS . PSYCH AFFECT NORMAL . LUNGS: LUNG SOUNDS ARE CLEAR . HEART: HEART RATE REGULAR . MUSCULOSKELETAL: MST 5/5 BILAT. LOWER EXTREMITIES . LUMBAR:TENDERNESS OVER BILAT. SIJ MODIFIED ANUPAMA'S TESTING OVER BILATERAL LOWER EXTREMITIES IS POSITIVE. DIAGNOSTIC TESTS REVIEWEDMRI L/S SPINE 2019. ASSESSMENTS SACROILIITIS, NOT ELSEWHERE CLASSIFIED - M46.1 (PRIMARY) TREATMENT SACROILIITIS, NOT ELSEWHERE CLASSIFIED NOTES: BILATERAL SACROILIAC JOINT BLOCK PRINTED AND REVIEWED PRE PROCEDURE WITH PATIENT IVONNE ARTHUR. PROCEDURE CODES FA211 ESTABILISHED PATIENT [facility] FAC[facility] CHARGE DISPOSITION & COMMUNICATION FOLLOW UP POST PROC (REASON: BILATERAL SACROILIAC JOINT BLOCK ) ELECTRONICALLY SIGNED BY LOUIE PALAFOX ON 12/21/2020 AT 07:02 AM EST DISCLAIMER : THIS IS A VISIT SUMMARY EXTRACTED FROM THE [employer] CHART. IT IS NOT A COPY OF THE [employer] PROGRESS NOTE. DEISYD
== END ==
LOC: M PAIN 10:15
PROVIDERS: ATTEND Nurse Practitioner Family
DX: M46.1 Sacroiliitis, not elsewhere classified (principal); J44.9 Chronic obstructive pulmonary disease, unspecified; I50.9 Heart failure, unspecified; E11.9 Type 2 diabetes mellitus without complications; G47.00 Insomnia, unspecified; F41.9 Anxiety disorder, unspecified; K57.30 Diverticulosis of large intestine without perforation or abscess without bleeding; M54.5 Low back pain; Z87.891 Personal history of nicotine dependence; Z79.84 Long term (current) use of oral hypoglycemic drugs; Z79.899 Other long term (current) drug therapy

== ENCOUNTER → 2020-12-13 | Outpatient (CLI) | payer OTHER | LOC: M LABSMTC 09:46 | PROVIDERS: ATTEND Anesthesiology | DX: Z11.52 Encounter for screening for COVID-19 (principal) ==

== ENCOUNTER → 2020-12-18 | Outpatient (CLI) | payer MEDICARE, OTHER ==
[~2020-12-18] MED LIST changes: +BUPIVACAINE HCL 0.25% 30ML VIAL As Ordered ONE; +ISOVUE-M 300 61% 15ML VIAL As Ordered ONE; +LIDOCAINE 1% SDV 30ML VIAL As Ordered ONE; +TRIAMCINOLONE ACETONIDE SUSP 40 MG/ML VIAL (J3301) As Ordered ONE; +diazePAM 5MG TABLET As Ordered ONE; +oxyCODONE 5MG TAB As Ordered ONE
--- NOTE | 2020-12-18 11:53 | REP ---
INDICATION: BILATERAL SACROILIAC JOINT BLOCK. COMPARISON: None. TECHNIQUE: Intraoperative fluoroscopic imaging using portable C-arm technique. FINDINGS: Catheter and contrast overlies the bilateral sacroiliac joints. Total fluoroscopic time 15.9 seconds. IMPRESSION: Findings consistent with bilateral sacroiliac joint injection. <Electronically signed by Marky Puga > 12/18/20 1144
--- NOTE | 2020-12-18 23:31 | ECWPNPC ---
PATIENT NAME: MAN KANG : 1955 GENDER: FEMALE VISIT DATE: 12/18/2020 DISCHARGE DATE: 12/18/20 1211 VISIT LOCKED DATE TIME: PHYSICIAN: LAVON DICKENS MD RESOURCE: LAVON DICKENS MD REASON FOR APPOINTMENT 1. BILATERAL SACROILIAC JOINT BLOCK HISTORY OF PRESENT ILLNESS GENERAL: -. FALL RISK SCREENING: SCREENING :NO FALLS REPORTED IN THE LAST YEAR PAIN SCREENING: PATIENT HAS A COMPLAINT OF ACUTE OR CHRONIC PAIN :YES LOCATION OF PAIN:LOW BACK, LEFT HIP, RIGHT HIP, THIGH(S) INTENSITY OF PAIN (SCALE OF 1 TO 10):9 WHAT DOES YOUR PAIN FEEL LIKE:ACHING, CONTINOUS, TENDER, THROBBING, SORE DURATION:CONTINOUS, CONSTANT PAIN IS INCREASED BY:ACTIVITIES, PROLONGED STANDING PAIN IS DECREASED BY:USE OF PAIN MEDICATIONS, OTHERS RESTING NURSING NOTE: -. PAIN CENTER INTAKE QUESTIONS: DO YOU HAVE A HISTORY OF MRSA? :NO DO YOU TAKE A BLOOD THINNERS? :NO DO YOU HAVE ANY BLEEDING DISORDERS? :NO ANY NEW NUMBNESS OR WEAKNESS IN YOUR LEGS OR ARMS? :NO ANY PACEMAKER,DEFIBRILLATOR, OR DORSAL COLUMN STIMULATOR? :NO DO YOU HAVE ANY RASHES OR OPEN SORES? :NO ARE YOU ALLERGIC TO IV DYE? :NO ARE YOU DIABETIC? :YES 125 THIS AM. ANY NEW PROBLEMS WITH YOUR MEDICATIONS? :NO HAVE YOU RECEIVED A VACCINE IN THE PAST 30 DAYS? :NO DO YOU PLAN TO RECEIVE A VACCINE IN THE NEXT 21 DAYS? :NO DO YOU TAKE ANY IMMUNOSUPPRESSIVE MEDICATIONS? :NO ANY HISTORY OF SEIZURES? :NO ANY HISTORY OF CARDIAC ISSUES OR EVENTS? :NO DO YOU HAVE ANY KIDNEY OR LIVER DISEASE? :NO DO YOU HAVE SLEEP APNEA? :YES DO YOU WEAR A CPAP?YES ANY RECENT HEAD INJURY? :NO DO YOU HAVE ANY NEW INFECTIONS? :NO IS THERE A CHANCE YOU COULD BE ? :NO ARE YOU BREAST FEEDING? :NO WHEN DID YOU LAST EAT? : 12/18/2020399 WHEN DID YOU LAST DRINK? : 12/18/20399 WHAT DID YOU LAST DRINK? : COFFEE NAME OF PERSON DRIVING YOU HOME? : RAY DO YOU HAVE ANY OTHER QUESTIONS OR CONCERNS? : NO CURRENT MEDICATIONS TAKING GABAPENTIN 300 MG CAPSULE 1 CAPSULE ORALLY TID, NOTES: 12/18/20 0900 TAKING METFORMIN 100 MG 1 TAB ORAL QID, NOTES: 12/17/20 1500 TAKING HYDROCODONE-ACETAMINOPHEN 7.5-325 MG TABLET 1 TABLET NEEDED ORALLY EVERY 6 HRS, NOTES: 12/18/20 0900 TAKING VENTOLIN HFA 108 (90 BASE) MCG/ACT AEROSOL SOLUTION 2 PUFFS NEEDED INHALATION EVERY 4 HRS TAKING ALBUTEROL 0.083% AEROSOL SOLUTION DIRECTED INHALATION THREE TIMES DAILY NEEDED TAKING XANAX 1 MG TABLET 1 TABLET ORALLY TID TAKING LASIX 40 MG TABLET 1 TABLET ORALLY ONCE A DAY TAKING POTASSIUM CHLORIDE 20 MEQ TABLET EXTENDED RELEASE 1 PACKET WITH FOOD ORALLY ONCE A DAY NOT-TAKING TRAZODONE HCL 50 MG TABLET 1/2 TABLET AT BEDTIME NEEDED ORALLY ONCE A DAY NOT-TAKING PREDNISONE 10 MG TABLET 1 TABLET ORALLY ONCE A DAY NOT-TAKING TOUJEO SOLOSTAR 300 UNIT/ML SOLUTION PEN-INJECTOR 13 UNITS SUBCUTANEOUS BID NOT-TAKING POTASSIUM 1 TAB ORAL DAILY NOT-TAKING ADVAIR DISKUS 100-50 MCG/DOSE AEROSOL POWDER BREATH ACTIVATED 1 PUFF INHALATION TWICE A DAY NOT-TAKING TIZANIDINE HCL 4 MG TABLET 1 TABLET NEEDED ORALLY THREE TIMES A DAY NOT-TAKING TRAMADOL HCL 50 MG TABLET 1 TABLET NEEDED ORALLY FOUR TIMES DAILY NEEDED, MDD 4 NOT-TAKING PYRIDIUM 200 MG TABLET 1 TABLET AFTER MEALS ORALLY THREE TIMES A DAY NOT-TAKING METHENAMINE HIPPURATE 1 GM TABLET 1 TABLET ORALLY TWICE A DAY NOT-TAKING DIFLUCAN 150 MG TABLET 1 TABLET ORALLY DIRECTED NOT-TAKING LEVAQUIN 500 MG TABLET 1 TABLET ORALLY ONCE A DAY NOT-TAKING LEVOFLOXACIN 500 MG TABLET 1 TABLET ORALLY ONCE A DAY NOT-TAKING CYCLOBENZAPRINE HCL 10 MG TABLET 1 TABLET ORALLY THREE TIMES A DAY NOT-TAKING LISINOPRIL 10 MG TABLET 1 TABLET ORALLY ONCE A DAY MEDICATION LIST REVIEWED AND RECONCILED WITH THE PATIENT PAST MEDICAL HISTORY SEPSIS SECONDARY TO LEFT LOWER LEG ABSCESS UTI CHF ACUTE HYPOXIC RESPIRATORY DISTRESS LEFT STAGHORN CALCULUS COPD DM INSOMNIA ANXIETY SIGMOID DIVERTICULOSIS CHOLELITHIASIS/SLUDGE W/I GALLBLADDER FUNDUS LOW BACK PAIN KIDNEY STONES 10/20/20 ALLERGIES N.K.D.A. SURGICAL HISTORY CYST REMOVED FROM LEFT THIGH PARTIAL HYSTERECTOMY CYSTOSCOPY WITH LEFT STENT REMOVAL [id number] URETEROSCOPY WITH STENT PLACEMENT 09/2020 CYSTO WITH LEFT STENT REMOVAL 10/20/2020 FAMILY HISTORY FATHER: , DIAGNOSED WITH OTHER MALIGNANT NEOPLASM OF UNSPECIFIED SITE MOTHER: , OTHER SPECIFIED CONDITIONS INFLUENCING HEALTH STATUS 1 BROTHER(S) , 4 SISTER(S) . 2 SON(S) , 1 DAUGHTER(S) - HEALTHY. BROTHER - - [place], STROKESISTERS - HEALTHYSON - - ACCIDENTAL DRUG OVERDOSE. SOCIAL HISTORY GENERAL: TOBACCO USE ARE YOU A:FORMER SMOKER HOW LONG HAS IT BEEN SINCE YOU LAST SMOKED?6-12 MONTHS LATEX QUESTIONNAIRE LATEX ALLERGY : HAVE YOU EVER DEVELOPED ANY TYPE OF REACTION AFTER HANDLING LATEX PRODUCTS SUCH RUBBER GLOVES, CONDOMS, DIAPHRAGMS, BALLOONS, SOCKS, OR UNDERWEAR?NO LATEX ALLERGY : HAVE YOU EVER DEVELOPED ANY TYPE OF REACTION DURING OR AFTER DENTAL APPOINTMENT, VAGINAL/RECTAL EXAMINATION, SURGICAL PROCEDURE, OR ANY OTHER EXPOSURE?NO LATEX RISK : HAVE YOU EVER HAD ANY DIFFICULTY BREATHING OR HIVES AFTER EATING OR HANDLING ANY FRUITS, OR VEGETABLES; SUCH KIWI, BANANAS, STONE FRUITS, OR CHESTNUTSNO LATEX RISK : DO YOU HAVE A PREVIOUS PERSONAL HISTORY OF MORE THAN NINE SURGERIES, SPINA BIFIDA, OR REPEATED CATHERIZATIONS? NO LATEX RISK : ARE YOU FREQUENTLY EXPOSED TO LATEX PRODUCTS IN YOUR OCCUPATION?NO DATE ASKED : 12/17/2020 ALCOHOL USE: NO. ALCOHOL SCREENING DID YOU HAVE A DRINK CONTAINING ALCOHOL IN THE PAST YEAR?NO POINTS0 INTERPRETATIONNEGATIVE RECREATIONAL DRUG USE DRUG USE?NO CAFFEINE CAFFEINE USE?YES HOW OFTEN AND HOW MUCH? 1 CUP COFFEE DAILY SEXUAL HX HAD SEX IN THE LAST 12 MONTHS (VAGINAL, ORAL, OR ANAL)?NO HAVE YOU EVER HAD AN STD?NO JAIN JAIN NO SHINTO BELIEFS THAT WOULD IMPACT HEALTH CARE. 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 DIET: REGULAR. EXERCISE: NO REGULAR EXERCISE. - HAS THE PATIENT BEEN EDUCATED REGARDING HIS/HER PLAN OF CARE?YES HAS THE PATIENT BEEN EDUCATED REGARDING PAIN, THE RISK FOR PAIN, THE IMPORTANCE OF EFFECTIVE PAIN MANAGEMENT, AND THE PAIN ASSESSMENT PROCESS?YES ADVANCE DIRECTIVE ADVANCE DIRECTIVE DISCUSSED WITH PATIENT:YES HCP - MARISA HENSON (BOYFRIEND) REVIEWED WITH PATIENT 05/01/19 Nelson RASHID. HOSPITALIZATION/MAJOR DIAGNOSTIC PROCEDURE [facility] -- RIGHT SACROILITIS, LUMBAR RADICULOPATHY 03/2019 COPD, PNEUMONIA BACK PAIN 04/2019 UTI, DIVERTICULITIS VITAL SIGNS WT 210.0 LBS, HT 62 IN, BMI 38.41 INDEX, BP 160/91 MM HG, HR 99 /MIN, RR 18 /MIN, TEMP 96.0 F, OXYGEN SAT % 99%, BLOOD GLUCOSE LEVEL 125 THIS AM, SAFE IN ENV? (Y/N) YES, NA INITIALS AW 1022, REVIEWED BY: Mercedes SAEZ RN BSN. EXAMINATION GENERAL EXAMINATION: A HISTORY AND PHYSICAL EXAM ON THE PATIENT WAS DONE ON 12/12/2020 (DATE OF ORIGINAL ASSESSMENT) IN PREPARATION OF SURGERY/PROCEDURE. I HAVE NOW REASSESSED THIS PATIENT'S HEALTH STATUS AND PERFORMED AN UPDATED EXAM TODAY. ALL CHANGES IN THE PATIENT'S HISTORY, PHYSICAL EXAM, PRE-EXISTING CONDITONS, AND INDICATIONS/CONTRAINDICATIONS TO THE PLANNED PROCEDURE AND ANESTHESIA ARE DOCUMENTED AND EVALUATED BELOW. I ATTEST TO THE ADEQUACY AND APPROPRIATENESS OF MY ASSESSMENT, AND CONFIRM THE NECESSITY FOR THE PLANNED PROCEDURE. THE PATIENT IS ALERT, ORIENTED TIMES THREE AND COOPERATIVE. LUNGS ARE CLEAR TO AUSCULTATION. HEART SHOWS REGULAR RHYTHM, NO MURMURS AND NO GALLOPS. ASSESSMENTS SACROILIITIS, NOT ELSEWHERE CLASSIFIED - M46.1 (PRIMARY) TREATMENT SACROILIITIS, NOT ELSEWHERE CLASSIFIED [facility] FLUORO GUIDANCE (PAIN)[id number] MEDICATION: VALIUM TAB 5MG ORALLY (DIAZEPAM)EVGENY MCINTOSH R 12/18/2020 10:43:27 AM > VERIFIED CYNTHIA SAEZ 12/18/2020 10:53:36 AM > ADMINISTERED AT 1052. MEDICATION: OXYCODONE HCL TAB 5MG ORALLY EVGENY MCINTOSH R 12/18/2020 10:43:13 AM > VERIFIED CYNTHIA SAEZ 12/18/2020 10:53:52 AM > ADMINISTERED AT 1052. COMPLETION OF PROCEDURAL VISIT WHEN MEETS CRITERIA OTHERS NOTES: PAT COMPLETED 12/17/20. PREPROCEDURE INSTRUCTIONS REINFORCED. PATIENT ABLE TO REPEAT INSTRUCTIONS BACK WITH MINIMAL DIFFICULTY. David PEREZ RN. PROCEDURES PAIN NURSING RECORD PROCEDURE IN ROOM 1112, PHYSICIAN IN ROOM 1127, START 1132, FINISH 1135, PHYSICIAN OUT OF ROOM 1137, OUT OF ROOM 1142, ECG NORMAL SINUS, PATIENT SHIELDED YES, SAFETY STRAP YES, PREP CHLOROPREP Mercedes SAEZ RN BSN, DRESSING TEGADERM DR. DICKENS LOC: CYNTHIA SAEZ 12/18/2020 11:12:17 AM > 1. ALERT, ORIENTED RESP: CYNTHIA SAEZ 12/18/2020 11:12:17 AM > 1. REGULAR, NO DYSPNEA COLOR: CYNTHIA SAEZ 12/18/2020 11:12:17 AM > 1. PINK SKIN: CYNTHIA SAEZ 12/18/2020 11:12:17 AM > 1. WARM, DRY POSITION: CYNTHIA SAEZ 12/18/2020 11:12:17 AM > 1. PRONE VITALS: CYNTHIA SAEZ 12/18/2020 11:15:51 AM > 166/79, 92, 100% 2L NC, (PATIENT IS OXYGEN DEPENDENT ON 2L). CYNTHIA SAEZ 12/18/2020 11:30:36 AM > 171/89, 97, 100% 2L NC. CYNTHIA SAEZ 12/18/2020 11:32:40 AM > 176/90, 95, 100% 2L NC. CYNTHIA SAEZ 12/18/2020 11:55:36 AM > POST PROCEDURE 156/82, 92, 99% 2L NC. COMPLETION OF PROCEDURE APPOINTMENT: POST PAIN 0/10., DRESSING SITE DRY AND INTACT, IV N/A, GAIT WHEELCHAIR, TEACHING COMPLETED, PATIENT ACKNOWLEDGES UNDERSTANDING YES, PROCEDURE APPOINTMENT COMPLETED AT BY: Mercedes SAEZ RN AT 1205. PN SI PRE PROCEDURE DIAGNOSIS SACROILIITIS, SACROILIAC JOINT DYSFUNCTION POST PROCEDURE DIAGNOSIS SACROILIITIS, SACROILIAC JOINT DYSFUNCTION PROCEDURE BILATERAL SACROILIAC JOINT BLOCK SURGEON DR. LAVON DICKENS CAKE PULLER NONE ANESTHESIA LOCAL PRE PROCEDURE NOTE THE PATIENT WITH HISTORY OF CHRONIC LOW BACK PAIN. I EVALUATED THE PATIENT AND REVIEWED THE CHART. I WENT OVER THE RISKS, ALTERNATIVES, AND BENEFITS ASSOCIATED WITH THIS PROCEDURE. THE PATIENT WOULD LIKE TO PROCEED AND GAVE CONSENT TO PERFORM THE PROCEDURE. THE PATIENT DENIES UNEXPLAINABLE WEIGHT LOSS, FEVER, CHILLS, OR NEW CHANGES IN URINARY OR BOWEL CONTROL. THE PATIENT IS COVID-19 NEGATIVE DESCRIPTION OF PROCEDURE THE PATIENT WAS BROUGHT TO THE PROCEDURE ROOM AND PLACED IN THE PRONE POSITION. THE LUMBOSACRAL AREA WAS CLEANED WITH CHLORAPREP SOLUTION AND DRAPED ASEPTICALLY. THE PROCEDURE WAS DONE UNDER STERILE CONDITIONS. A TIMEOUT WAS PERFORMED WHERE THE CONSENTED SITE WAS VERIFIED WITH EVERYONE IN THE ROOM. UNDER FLUOROSCOPIC GUIDANCE, THE TARGET POINT WAS SELECTED AT THE LOWER BORDER OF THE RIGHT AND LEFT SACROILIAC JOINT. TARGET POINT WAS SELECTED AFTER MEDIAL ROTATION AND TILT OF THE MAGNIFIER OR THE C-ARM. I CONFIRMED AGAIN THE SITE OF TARGET. LIDOCAINE 0.5% WAS USED TO NUMB THE SKIN AND THE SUBCUTANEOUS TISSUE BELOW IT. SPINAL NEEDLES, 22-GAUGE, WERE ADVANCED UNDER FLUOROSCOPIC GUIDANCE AND FOLLOWING PATIENT FEEDBACK UNTIL THE TARGETS WERE TOUCHED. THE POSITION OF THE NEEDLES WAS VERIFIED WITH AP AND OBLIQUE VIEWS. AFTER PROPER POSITION OF THE NEEDLES WAS ACHIEVED, ISOVUE-M DYE 30%, 0.1 ML, WAS INJECTED SHOWING ADEQUATE SPREAD OF THE DYE. KENALOG 40 MG WAS INJECTED AT EACH SITE. THEN, A SOLUTION OF 3.0 ML OF BUPIVACAINE 0.125% WAS USED TO FLUSH EACH NEEDLE. THE MEDICATIONS WERE VERIFIED WITH THE NURSE. THERE WAS NO EVIDENCE OF BLOOD, PARESTHESIA OR CEREBROSPINAL FLUID DURING THE PROCEDURE. THE PATIENT WAS SENT TO THE RECOVERY ROOM. THE PATIENT WAS MOVING THE EXTREMITIES AND DOING WELL. THERE WERE NO COMPLICATIONS DURING THE PROCEDURE. ESTIMATED BLOOD LOSS WAS LESS THAN 5 ML. FLUOROSCOPIC TIME WAS 15 SECONDS. POST PROCEDURE NOTE DEPENDING ON THE RESULTS, CONSIDER DOING A LUMBAR EPIDURAL STEROID INJECTION. THE PROCEDURE DONE WAS DISCUSSED WITH THE PATIENT. THE PATIENT WILL BE SEEN IN A FOLLOW UP IN THE NEXT FEW WEEKS. I AM LOOKING FOR LONG LASTING PAIN RELIEF FOR THE PATIENT WITH THIS INTERVENTION. INSTRUCTIONS WERE GIVEN, QUESTIONS WERE ANSWERED, AND THE PATIENT EXPRESSED UNDERSTANDING AND AGREES WITH THE PLAN. I, CRYSTAL MERCADO, DOCUMENTED THE ABOVE INFORMATION ACTING A SCRIBE FOR DR. DICKENS. I HAVE REVIEWED THE ABOVE DOCUMENT, WRITTEN BY CRYSTAL MERCADO, [employer]EM[employer], AND I VERIFY THAT IT IS ACCURATE PROCEDURE CODES 24536 INJECT SACROILIAC JOINT, MODIFIERS: 50 DISPOSITION & COMMUNICATION FOLLOW UP FOLLOW UP WITH SHIP PAINTER HELPER (REASON: POST BILATERAL SACROILIAC JOINT BLOCK) ELECTRONICALLY SIGNED BY LAVON DICKENS MD, MD ON 12/18/2020 AT 04:14 PM EST DISCLAIMER : THIS IS A VISIT SUMMARY EXTRACTED FROM THE [employer] CHART. IT IS NOT A COPY OF THE [employer] PROGRESS NOTE. MARILUZ
== END ==
LOC: M PAIN 10:20
PROVIDERS: ATTEND Anesthesiology
DX: M46.1 Sacroiliitis, not elsewhere classified (principal); E11.9 Type 2 diabetes mellitus without complications; G47.30 Sleep apnea, unspecified; J44.9 Chronic obstructive pulmonary disease, unspecified; Z86.59 Personal history of other mental and behavioral disorders; Z87.891 Personal history of nicotine dependence; Z79.84 Long term (current) use of oral hypoglycemic drugs; Z79.899 Other long term (current) drug therapy
CPT/HCPCS: G0260; J3301; Q9967

== ENCOUNTER → 2021-01-14 | Outpatient (CLI) | payer MEDICARE, OTHER ==
[~2021-01-14] MED LIST changes: -BUPIVACAINE HCL 0.25% 30ML VIAL As Ordered ONE; -ISOVUE-M 300 61% 15ML VIAL As Ordered ONE; -LIDOCAINE 1% SDV 30ML VIAL As Ordered ONE; -TRIAMCINOLONE ACETONIDE SUSP 40 MG/ML VIAL (J3301) As Ordered ONE; -diazePAM 5MG TABLET As Ordered ONE; -oxyCODONE 5MG TAB As Ordered ONE
--- NOTE | 2021-01-17 00:25 | ECWPNPC ---
PATIENT NAME: MAN KANG : 1955 GENDER: FEMALE VISIT DATE: 01/14/2021 DISCHARGE DATE: 01/14/21 1520 VISIT LOCKED DATE TIME: PHYSICIAN: ARMINDA BURKS RESOURCE: ARMINDA BURKS REASON FOR APPOINTMENT 1. POSTBILATERAL SACROILIAC JOINT BLOCK HISTORY OF PRESENT ILLNESS GENERAL: HERE FOR POST PROCEDURE F/U.HAD BILATERAL SIJ BLOCK .STATES MARKED REDUCTION IN PAIN POST PROCEDURE.CONTINUES TO REPORT SOME IMPROVEMENT TODAY.FEELS PAIN IS RETURNING.PAIN IS IN ITS USUAL LOCATION ACROSS LOW BACK. -. FALL RISK SCREENING: SCREENING : NO FALLS REPORTED IN THE LAST YEAR. PAIN SCREENING: PATIENT HAS A COMPLAINT OF ACUTE OR CHRONIC PAIN :YES LOCATION OF PAIN:LOW BACK INTENSITY OF PAIN (SCALE OF 1 TO 10):8 WHAT DOES YOUR PAIN FEEL LIKE:ACHING, BURNING, THROBBING DURATION:CONTINOUS, CONSTANT, ALL DAY PAIN IS INCREASED BY:ACTIVITIES PAIN IS DECREASED BY:USE OF PAIN MEDICATIONS, OTHERS RELAXING NURSING NOTE: -. PAIN CENTER INTAKE QUESTIONS: DO YOU HAVE A HISTORY OF MRSA? :NO DO YOU TAKE A BLOOD THINNERS? :NO DO YOU HAVE ANY BLEEDING DISORDERS? :NO ANY NEW NUMBNESS OR WEAKNESS IN YOUR LEGS OR ARMS? :NO ANY PACEMAKER,DEFIBRILLATOR, OR DORSAL COLUMN STIMULATOR? :NO DO YOU HAVE ANY RASHES OR OPEN SORES? :NO ARE YOU ALLERGIC TO IV DYE? :NO ARE YOU DIABETIC? :YES ANY NEW PROBLEMS WITH YOUR MEDICATIONS? :NO HAVE YOU RECEIVED A VACCINE IN THE PAST 30 DAYS? :YES IF SO WHAT VACCINE AND WHEN? 1ST COVID 12/21/2020 DO YOU PLAN TO RECEIVE A VACCINE IN THE NEXT 21 DAYS? :YES IF SO WHAT VACCINE AND WHEN? 2ND COVID NOT SURE WHEN DO YOU NEED ANY PRESCRIPTION? :NO DO YOU TAKE ANY IMMUNOSUPPRESSIVE MEDICATIONS? :YES IS THERE A CHANCE YOU COULD BE ? :NO ARE YOU BREAST FEEDING? :NO CURRENT MEDICATIONS TAKING GABAPENTIN 300 MG CAPSULE 1 CAPSULE ORALLY TID TAKING METFORMIN 100 MG 1 TAB ORAL QID TAKING HYDROCODONE-ACETAMINOPHEN 7.5-325 MG TABLET 1 TABLET NEEDED ORALLY EVERY 6 HRS TAKING VENTOLIN HFA 108 (90 BASE) MCG/ACT AEROSOL SOLUTION 2 PUFFS NEEDED INHALATION EVERY 4 HRS TAKING ALBUTEROL 0.083% AEROSOL SOLUTION DIRECTED INHALATION THREE TIMES DAILY NEEDED TAKING XANAX 1 MG TABLET 1 TABLET ORALLY TID TAKING LASIX 40 MG TABLET 1 TABLET ORALLY ONCE A DAY TAKING POTASSIUM CHLORIDE 20 MEQ TABLET EXTENDED RELEASE 1 PACKET WITH FOOD ORALLY ONCE A DAY NOT-TAKING TRAZODONE HCL 50 MG TABLET 1/2 TABLET AT BEDTIME NEEDED ORALLY ONCE A DAY NOT-TAKING PREDNISONE 10 MG TABLET 1 TABLET ORALLY ONCE A DAY NOT-TAKING TOUJEO SOLOSTAR 300 UNIT/ML SOLUTION PEN-INJECTOR 13 UNITS SUBCUTANEOUS BID NOT-TAKING POTASSIUM 1 TAB ORAL DAILY NOT-TAKING ADVAIR DISKUS 100-50 MCG/DOSE AEROSOL POWDER BREATH ACTIVATED 1 PUFF INHALATION TWICE A DAY NOT-TAKING TIZANIDINE HCL 4 MG TABLET 1 TABLET NEEDED ORALLY THREE TIMES A DAY NOT-TAKING TRAMADOL HCL 50 MG TABLET 1 TABLET NEEDED ORALLY FOUR TIMES DAILY NEEDED, MDD 4 NOT-TAKING PYRIDIUM 200 MG TABLET 1 TABLET AFTER MEALS ORALLY THREE TIMES A DAY NOT-TAKING METHENAMINE HIPPURATE 1 GM TABLET 1 TABLET ORALLY TWICE A DAY NOT-TAKING DIFLUCAN 150 MG TABLET 1 TABLET ORALLY DIRECTED NOT-TAKING LEVAQUIN 500 MG TABLET 1 TABLET ORALLY ONCE A DAY NOT-TAKING LEVOFLOXACIN 500 MG TABLET 1 TABLET ORALLY ONCE A DAY NOT-TAKING CYCLOBENZAPRINE HCL 10 MG TABLET 1 TABLET ORALLY THREE TIMES A DAY NOT-TAKING LISINOPRIL 10 MG TABLET 1 TABLET ORALLY ONCE A DAY MEDICATION LIST REVIEWED AND RECONCILED WITH THE PATIENT PAST MEDICAL HISTORY SEPSIS SECONDARY TO LEFT LOWER LEG ABSCESS UTI CHF ACUTE HYPOXIC RESPIRATORY DISTRESS LEFT STAGHORN CALCULUS COPD DM INSOMNIA ANXIETY SIGMOID DIVERTICULOSIS CHOLELITHIASIS/SLUDGE W/I GALLBLADDER FUNDUS LOW BACK PAIN KIDNEY STONES 10/20/20 ALLERGIES N.K.D.A. SURGICAL HISTORY CYST REMOVED FROM LEFT THIGH PARTIAL HYSTERECTOMY CYSTOSCOPY WITH LEFT STENT REMOVAL [id number] URETEROSCOPY WITH STENT PLACEMENT 09/2020 CYSTO WITH LEFT STENT REMOVAL 10/20/2020 SOCIAL HISTORY GENERAL: TOBACCO USE ARE YOU A:FORMER SMOKER HOW LONG HAS IT BEEN SINCE YOU LAST SMOKED?6-12 MONTHS LATEX QUESTIONNAIRE LATEX ALLERGY : HAVE YOU EVER DEVELOPED ANY TYPE OF REACTION AFTER HANDLING LATEX PRODUCTS SUCH RUBBER GLOVES, CONDOMS, DIAPHRAGMS, BALLOONS, SOCKS, OR UNDERWEAR?NO LATEX ALLERGY : HAVE YOU EVER DEVELOPED ANY TYPE OF REACTION DURING OR AFTER DENTAL APPOINTMENT, VAGINAL/RECTAL EXAMINATION, SURGICAL PROCEDURE, OR ANY OTHER EXPOSURE?NO DATE ASKED : 12/17/2020 LATEX RISK : HAVE YOU EVER HAD ANY DIFFICULTY BREATHING OR HIVES AFTER EATING OR HANDLING ANY FRUITS, OR VEGETABLES; SUCH KIWI, BANANAS, STONE FRUITS, OR CHESTNUTSNO LATEX RISK : DO YOU HAVE A PREVIOUS PERSONAL HISTORY OF MORE THAN NINE SURGERIES, SPINA BIFIDA, OR REPEATED CATHERIZATIONS? NO LATEX RISK : ARE YOU FREQUENTLY EXPOSED TO LATEX PRODUCTS IN YOUR OCCUPATION?NO ALCOHOL USE: NO. ALCOHOL SCREENING DID YOU HAVE A DRINK CONTAINING ALCOHOL IN THE PAST YEAR?NO POINTS0 INTERPRETATIONNEGATIVE RECREATIONAL DRUG USE DRUG USE?NO CAFFEINE CAFFEINE USE?YES HOW OFTEN AND HOW MUCH? 1 CUP COFFEE DAILY SEXUAL HX HAD SEX IN THE LAST 12 MONTHS (VAGINAL, ORAL, OR ANAL)?NO HAVE YOU EVER HAD AN STD?NO RASTAFARIAN RASTAFARIAN NO LATTER DAY BELIEFS THAT WOULD IMPACT HEALTH CARE. 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 DIET: REGULAR. EXERCISE: NO REGULAR EXERCISE. - HAS THE PATIENT BEEN EDUCATED REGARDING HIS/HER PLAN OF CARE?YES HAS THE PATIENT BEEN EDUCATED REGARDING PAIN, THE RISK FOR PAIN, THE IMPORTANCE OF EFFECTIVE PAIN MANAGEMENT, AND THE PAIN ASSESSMENT PROCESS?YES ADVANCE DIRECTIVE ADVANCE DIRECTIVE DISCUSSED WITH PATIENT:YES HCP - MARISA HENSON (BOYFRIEND) REVIEWED WITH PATIENT 05/01/19 1007 JS. HOSPITALIZATION/MAJOR DIAGNOSTIC PROCEDURE [facility] -- RIGHT SACROILITIS, LUMBAR RADICULOPATHY 03/2019 COPD, PNEUMONIA BACK PAIN 04/2019 UTI, DIVERTICULITIS REVIEW OF SYSTEMS CONSTITUTIONAL: ANY RECENT FEVER NO . CHILLS NO . WEIGHT CHANGE OF UNKNOWN REASONS NO . GASTROENTEROLOGY: NEW UNEXPLAINABLE CHANGES IN BOWEL CONTROL NO . CONSTIPATION NO . GENITOURINARY: ANY NEW CHANGE IN BLADDER CONTROL? NO . NEUROLOGY: NEW ONSET DIZZINESS OR NEUROLOGICAL CHANGES NOT MENTIONED NO . NEW NUMBNESS OR PAIN PATTERNS NOT MENTIONED AND PERTINENT TO TODAY'S VISIT NO . CARDIOLOGY: NEW CHEST PRESSURE NO . PATIENT DENIES NO . RESPIRATORY: UNEXPLAINABLE COUGH NO . NEW SHORTNESS OF BREATH NO . VITAL SIGNS WT 202.0 LBS, HT 62 IN, BMI 36.94 INDEX, BP 163/81 MM HG, HR 109 /MIN, RR 18 /MIN, TEMP 96.0 F, OXYGEN SAT % 92%, SAFE IN ENV? (Y/N) YES, NA INITIALS AW 1436T.SYDNI ARTHUR WILL NOFITY THE PROVIDER ABUT BP. EXAMINATION GENERAL EXAMINATION: GENERAL ALERT,NO DISTRESS . PSYCH AFFECT NORMAL . LUNGS: LUNG SOUNDS ARE CLEAR . HEART: HEART RATE REGULAR . MUSCULOSKELETAL: MST 5/5 BILAT. LOWER EXTREMITIES . LUMBAR:TENDERNESS OVER BILAT. SIJ MODIFIED ANUPAMA'S TESTING OVER BILATERAL LOWER EXTREMITIES IS POSITIVE. DIAGNOSTIC TESTS REVIEWEDMRI L/S SPINE 2019. ASSESSMENTS SACROILIITIS, NOT ELSEWHERE CLASSIFIED - M46.1 (PRIMARY) OTHER CHRONIC PAIN - G89.29 TREATMENT SACROILIITIS, NOT ELSEWHERE CLASSIFIED MEDICATION: OXYCODONE HCL TAB 5MG ORALLY (ORDERED FOR 01/21/2021) MEDICATION: VALIUM TAB 5MG ORALLY (DIAZEPAM) (ORDERED FOR 01/21/2021) NOTES: BILATERAL SACROILIAC JOINT BLOCK PRINTED AND REVIEWED PRO PROCEDURE WITH PATIENT IVONNE ARTHUR. OTHER CHRONIC PAIN PAIN PROCEDURE LOGDATE OF PROCEDURE12/18/20PROCEDURE:BILATERAL SACROILIAC JOINT BLOCKAMOUNT OF PRE SEDATEVALIUM 5MG, OXYCODONE 5MGRESULT:MARKED REDUCTION IN PAIN SOME OF WHICH CONTINUES TODAY. PROCEDURE CODES FA211 ESTABILISHED PATIENT [facility] FACILITY CHARGE DISPOSITION & COMMUNICATION FOLLOW UP POST PROCEDURE (REASON: BILATERAL SACROILIAC JOINT BLOCK ) ELECTRONICALLY SIGNED BY LOUIE PALAFOX ON 01/16/2021 AT 04:05 PM EDT DISCLAIMER : THIS IS A VISIT SUMMARY EXTRACTED FROM THE [employer] CHART. IT IS NOT A COPY OF THE [employer] PROGRESS NOTE. MARILUZ
== END ==
LOC: M PAIN 14:30
PROVIDERS: ATTEND Nurse Practitioner Family
DX: M46.1 Sacroiliitis, not elsewhere classified (principal); G89.29 Other chronic pain; E11.9 Type 2 diabetes mellitus without complications; J44.9 Chronic obstructive pulmonary disease, unspecified; G47.00 Insomnia, unspecified; Z86.59 Personal history of other mental and behavioral disorders; Z87.891 Personal history of nicotine dependence; Z79.84 Long term (current) use of oral hypoglycemic drugs; Z79.899 Other long term (current) drug therapy

== ENCOUNTER → 2021-02-09 | Outpatient (CLI) | payer OTHER, MEDICARE ==
[2021-02-09 14:09] LABS: THYROID STIMULATING HORMONE 0.694 uIU/ML (0.358-3.740); TOTAL PROTEIN 7.7 GM/DL (6.4-8.2)
[2021-02-09 14:11] LABS: FOLATE 11.2 NG/ML
== END ==
LOC: M LABDRWAD 10:15
PROVIDERS: ATTEND Psychiatry & Neurology Neurology
DX: E53.8 Deficiency of other specified B group vitamins (principal); E03.9 Hypothyroidism, unspecified; E51.9 Thiamine deficiency, unspecified

== ENCOUNTER → 2021-02-09 | Outpatient (REF) | payer OTHER, MEDICARE ==
[2021-02-09 13:33] LABS: HEMATOCRIT 45.3 % (36.0-47.0); HEMOGLOBIN 14.1 g/dl (12.0-15.5); MEAN CORPUSCULAR HEMOGLOBIN 28.3 pg (27.0-33.0); MEAN CORPUSCULAR HGB CONC 31.1 g/dl (32.0-36.5); MEAN CORPUSCULAR VOLUME 90.8 fl (80.0-96.0); PLATELET COUNT, AUTOMATED 346 10^3/uL (150-450); RED BLOOD COUNT 4.99 10^6/uL (4.00-5.40); WHITE BLOOD COUNT 7.6 10^3/uL (4.0-10.0)
[2021-02-09 13:49] LABS: HEMOGLOBIN A1c 7.9 %
[2021-02-09 14:29] LABS: ALT/SGPT 27 U/L (12-78); BILIRUBIN,TOTAL 0.3 MG/DL (0.2-1.0); BLOOD UREA NITROGEN 21 MG/DL (7-18); CALCIUM LEVEL 10.4 MG/DL (8.8-10.2); CARBON DIOXIDE LEVEL 36 MEQ/L (21-32); CHLORIDE LEVEL 96 MEQ/L (98-107); CREATININE FOR GFR 0.72 MG/DL (0.55-1.30); GLOMERULAR FILTRATION RATE > 60.0 (>45); GLUCOSE, FASTING 171 MG/DL (70-100); POTASSIUM SERUM 4.5 MEQ/L (3.5-5.1); SODIUM LEVEL 137 MEQ/L (136-145); THYROID STIMULATING HORMONE 0.682 uIU/ML (0.358-3.740); TOTAL PROTEIN 7.3 GM/DL (6.4-8.2)
== END ==
LOC: M LABDRWAD 12:21
PROVIDERS: ATTEND Family Medicine
DX: E11.9 Type 2 diabetes mellitus without complications (principal); R53.83 Other fatigue; E03.9 Hypothyroidism, unspecified

== ENCOUNTER → 2021-10-05 | Outpatient (CLI) | payer MEDICARE ==
[~2021-10-05] MED LIST changes: -CEFD1CAP8 PO; +CEFD300C41 PO; -DICY20TA11; +DICY20TA20; +DOXY-443; -DOXY100C37; +FLUO-96 PO; -FLUO20CA20 PO; -LEVO500T3 PO; +LEVO500T4 PO; +TIZA10TA PO; -TIZA4TAB4 PO
== END ==
LOC: M RAD 15:26
PROVIDERS: ATTEND Nurse Practitioner Family
DX: Z12.2 Encounter for screening for malignant neoplasm of respiratory organs (principal); Z87.891 Personal history of nicotine dependence; J84.10 Pulmonary fibrosis, unspecified

== ENCOUNTER → 2022-01-18 | Outpatient (CLI) | payer MEDICARE ==
[2022-01-19 12:15] LABS: TOTAL PROTEIN 7.5 GM/DL (6.4-8.2)
[2022-01-20 11:38] LABS: ALPHA-1-GLOBULIN % 4.3 % (2.9-4.9); ALPHA-1-GLOBULINS 0.32 GM/DL (0.17-0.41); ALPHA-2-GLOBULINS 1.22 GM/DL (0.42-0.99); ALPHA-2-GLOBULINS % 16.3 % (7.1-11.8); BETA-1-GLOBULINS 0.47 GM/DL (0.28-0.60); BETA-1-GLOBULINS % 6.2 % (4.7-7.2); BETA-2-GLOBULINS 0.52 GM/DL (0.19-0.55); BETA-2-GLOBULINS % 6.9 % (3.2-6.5); GAMMA GLOBULIN % 10.3 % (11.1-18.8); GAMMA GLOBULINS 0.77 GM/DL (0.65-1.58)
== END ==
LOC: M WUC 11:46
PROVIDERS: ATTEND Psychiatry & Neurology Neurology
DX: D47.2 Monoclonal gammopathy (principal); G62.9 Polyneuropathy, unspecified; M19.042 Primary osteoarthritis, left hand; M19.012 Primary osteoarthritis, left shoulder

== ENCOUNTER 2022-02-24 17:35 | Emergency (ER) | payer MEDICARE, MEDICAID ==
[~2022-02-24] VITALS: Ht 165.1 cm; Wt 88.6 kg
[2022-02-24] MEDS ORDERED: HYDR-643 PO (17:54)
[2022-02-24] MEDS ORDERED: METO1TAB87 (17:54)
[2022-02-24] MEDS ORDERED: ASPI81CH33 PO (17:54)
[2022-02-24] MEDS ORDERED: CEFU1TAB22 (17:54)
[2022-02-24] MEDS ORDERED: SITA50TAB (17:54)
[2022-02-24] MEDS ORDERED: FLUC150T9 (17:54)
[2022-02-24] MEDS ORDERED: LISI5TAB11 (17:54)
[2022-02-24] MEDS ORDERED: ATOR80TA59 (17:54)
[2022-02-24] MEDS ORDERED: ASPIRIN 81 MG CHEW TABLET PO ONE (18:10)
[2022-02-24 18:20] LABS: BASO # 0.1 10^3/uL (0.0-0.2); BASO % 0.9 % (0.0-1.0); EOS # 0.1 10^3/uL (0.0-0.5); EOS % 1.6 % (0.0-3.0); HEMATOCRIT 38.1 % (36.0-47.0); HEMOGLOBIN 12.1 g/dl (12.0-15.5); LYMPH # 2.5 10^3/uL (1.5-5.0); LYMPH % 30.7 % (24.0-44.0); MEAN CORPUSCULAR HEMOGLOBIN 29.2 pg (27.0-33.0); MEAN CORPUSCULAR HGB CONC 31.8 g/dl (32.0-36.5); MEAN CORPUSCULAR VOLUME 91.8 fl (80.0-96.0); MONO % 12.3 % (2.0-8.0); NEUTROPHILS # 4.3 10^3/uL (1.5-8.5); NEUTROPHILS % 54.1 % (36.0-66.0); PLATELET COUNT, AUTOMATED 276 10^3/uL (150-450); RED BLOOD COUNT 4.15 10^6/uL (4.00-5.40)
[2022-02-24 18:27] LABS: CREATININE FOR GFR 1.52 MG/DL (0.55-1.30); GLOMERULAR FILTRATION RATE 36.4 (>45); POTASSIUM SERUM 5.3 MEQ/L (3.5-5.1)
[2022-02-24 18:29] LABS: CK-MB VALUE MASS 1.8 NG/ML (<3.6); MB/CK RELATIVE INDEX 1.86 (< OR =4)
[2022-02-24 19:02] LABS: RSV AMPLIFICATION NEGATIVE (NEGATIVE)
[2022-02-24 20:50] VITALS: BP 121/65
== END 2022-02-24 21:14 | disposition home or self-care (01) ==
LOC: M ED 17:35
DX: R07.89 Other chest pain (principal); N17.9 Acute kidney failure, unspecified; T36.8X5A Adverse effect of other systemic antibiotics, initial encounter; I51.7 Cardiomegaly; I25.10 Atherosclerotic heart disease of native coronary artery without angina pectoris; J44.9 Chronic obstructive pulmonary disease, unspecified; M54.9 Dorsalgia, unspecified; Z95.5 Presence of coronary angioplasty implant and graft; Z87.442 Personal history of urinary calculi; Z87.440 Personal history of urinary (tract) infections; Z87.891 Personal history of nicotine dependence; Z82.49 Family history of ischemic heart disease and other diseases of the circulatory system; Z79.84 Long term (current) use of oral hypoglycemic drugs; Z79.899 Other long term (current) drug therapy; Z88.2 Allergy status to sulfonamides

== ENCOUNTER → 2022-03-16 | Outpatient (CLI) | payer MEDICARE, MEDICAID ==
[~2022-03-16] MED LIST changes: +ALBU2.5V10 INH; -ALBU83IN INH; +ASPI81CH33 PO; +ATOR80TA59; +CEFU1TAB22; +FLUC150T9; +HYDR-643 PO; +LISI5TAB11; +METO1TAB87; +SITA50TAB
== END ==
LOC: M RAD 06:34
PROVIDERS: ATTEND Physician Assistant
DX: M50.221 Other cervical disc displacement at C4-C5 level (principal); M48.02 Spinal stenosis, cervical region; M47.812 Spondylosis without myelopathy or radiculopathy, cervical region

== ENCOUNTER 2022-08-13 00:46 | Emergency (ER) | payer MEDICARE, OTHER ==
[~2022-08-13] VITALS: Ht 165.1 cm; Wt 97.4 kg
[~2022-08-13 00:46] MED LIST changes: +LEVO1TAB39 PO; -LEVO500T4 PO
[2022-08-13] MEDS ORDERED: ASPIRIN 81 MG CHEW TABLET PO ONE (01:20)
[2022-08-13] MEDS ORDERED: NITROGLYCERIN 0.4 MG SUBL TABLET SL PRN (01:20)
[2022-08-13 01:26] VITALS: BP 149/68
[2022-08-13 01:39] LABS: BASO # 0.1 10^3/uL (0.0-0.2); EOS # 0.2 10^3/uL (0.0-0.5); EOS % 2.1 % (0.0-3.0); HEMATOCRIT 38.3 % (36.0-47.0); HEMOGLOBIN 11.8 g/dl (12.0-15.5); LYMPH # 3.4 10^3/uL (1.5-5.0); LYMPH % 38.6 % (24.0-44.0); MEAN CORPUSCULAR HEMOGLOBIN 29.4 pg (27.0-33.0); MEAN CORPUSCULAR HGB CONC 30.8 g/dl (32.0-36.5); MEAN CORPUSCULAR VOLUME 95.3 fl (80.0-96.0); MONO # 1.1 10^3/uL (0.0-0.8); MONO % 12.8 % (2.0-8.0); NEUTROPHILS # 3.7 10^3/uL (1.5-8.5); NEUTROPHILS % 42.4 % (36.0-66.0); PLATELET COUNT, AUTOMATED 288 10^3/uL (150-450); RED BLOOD COUNT 4.02 10^6/uL (4.00-5.40); WHITE BLOOD COUNT 8.8 10^3/uL (4.0-10.0)
[2022-08-13] MEDS ORDERED: CLOP75TA2 PO (01:41)
[2022-08-13 01:51] LABS: INR 0.9; PARTIAL THROMBOPLASTIN TIME 27.9 SECONDS (24.8-34.2); PROTHROMBIN TIME 12.3 SECONDS (12.5-14.5)
[2022-08-13 02:29] LABS: CK-MB VALUE MASS 1.9 NG/ML (<3.6); MB/CK RELATIVE INDEX 2.04 (< OR =4)
[2022-08-13 02:32] LABS: ALBUMIN 3.2 GM/DL (3.2-5.2); ALT/SGPT 36 U/L (12-78); BILIRUBIN,DIRECT < 0.1 MG/DL (0.0-0.2); BILIRUBIN,TOTAL 0.2 MG/DL (0.2-1.0); BLOOD UREA NITROGEN 19 MG/DL (7-18); CALCIUM LEVEL 9.3 MG/DL (8.8-10.2); CARBON DIOXIDE LEVEL 32 MEQ/L (21-32); CHLORIDE LEVEL 100 MEQ/L (98-107); CREATININE FOR GFR 0.84 MG/DL (0.55-1.30); FREE T4 1.21 NG/DL (0.76-1.46); GLOMERULAR FILTRATION RATE > 60.0 (>45); GLUCOSE, FASTING 193 MG/DL (70-100); LIPASE 190 U/L (73-393); POTASSIUM SERUM 5.4 MEQ/L (3.5-5.1); SODIUM LEVEL 137 MEQ/L (136-145)
[2022-08-13] MEDS ORDERED: SOD POLYSTYRENE SULFONATE SUSP 15GM 60ML UD PO ONE (03:05)
[2022-08-13] MEDS ORDERED: ISOVUE-370 76% 100ML VIAL As Ordered ONE (03:08)
[2022-08-13 04:11] LABS: CK-MB VALUE MASS 1.5 NG/ML (<3.6); MB/CK RELATIVE INDEX 1.79 (< OR =4)
[2022-08-13 05:16] LABS: CK-MB VALUE MASS 1.6 NG/ML (<3.6); MB/CK RELATIVE INDEX 2.29 (< OR =4)
[2022-08-13 05:26] VITALS: BP 141/67
== END 2022-08-13 06:34 | disposition home or self-care (01) ==
LOC: M ED 00:46
DX: R07.9 Chest pain, unspecified (principal); E87.5 Hyperkalemia; R94.31 Abnormal electrocardiogram [ECG] [EKG]; I11.0 Hypertensive heart disease with heart failure; I50.9 Heart failure, unspecified; I25.2 Old myocardial infarction; E78.5 Hyperlipidemia, unspecified; E11.9 Type 2 diabetes mellitus without complications; J44.9 Chronic obstructive pulmonary disease, unspecified; F41.9 Anxiety disorder, unspecified; M54.9 Dorsalgia, unspecified; Z87.891 Personal history of nicotine dependence; Z88.0 Allergy status to penicillin; Z88.2 Allergy status to sulfonamides; Z88.8 Allergy status to other drugs, medicaments and biological substances; Z79.51 Long term (current) use of inhaled steroids; Z79.899 Other long term (current) drug therapy; Z79.84 Long term (current) use of oral hypoglycemic drugs
CPT/HCPCS: 36415; 71045; 71275; 80048; 80076; 82550; 82553; 83690; 84439; 84443; 84484; 85025; 85610; 85730; 87486; 87581; 87633; 87798; 93005; 93041; 94760; 99285; Q9967

== ENCOUNTER → 2022-08-17 | Outpatient (CLI) | payer MEDICARE, OTHER ==
[~2022-08-17] MED LIST changes: +CLOP75TA2 PO
[2022-08-17 13:16] LABS: POTASSIUM SERUM 4.5 MEQ/L (3.5-5.1)
== END ==
LOC: M LAB 11:21
PROVIDERS: ATTEND Family Medicine
DX: I12.9 Hypertensive chronic kidney disease with stage 1 through stage 4 chronic kidney disease, or unspecified chronic kidney disease (principal); N18.9 Chronic kidney disease, unspecified

== ENCOUNTER 2023-01-16 11:57 | Inpatient (IN) | payer MEDICARE, OTHER ==
[~2023-01-16] VITALS: Ht 165.1 cm; Wt 84.5 kg
[~2023-01-16 11:57] MED LIST changes: -ATOR80TA59; +ATOR80TA59 PO; -LISI5TAB11; +LISI5TAB11 PO; -METO1TAB87; -SITA50TAB; +SITA50TAB PO
[2023-01-16] MEDS ORDERED: ACETAMINOPHEN TAB 650MG DOSE (2X325MG) PO ONE (12:45)
[2023-01-16] MEDS: COMBIVENT RESPIMAT 100-20MCG INHALER 4GM INH SCH ×6 (13:25→23:24)
[2023-01-16 14:25] LABS: BASO # 0.1 10^3/uL (0.0-0.2); BASO % 0.7 % (0.0-1.0); EOS % 0.4 % (0.0-3.0); HEMATOCRIT 35.8 % (36.0-47.0); HEMOGLOBIN 11.1 g/dl (12.0-15.5); LYMPH # 0.9 10^3/uL (1.5-5.0); LYMPH % 12.4 % (24.0-44.0); MEAN CORPUSCULAR HEMOGLOBIN 28.9 pg (27.0-33.0); MEAN CORPUSCULAR VOLUME 93.2 fl (80.0-96.0); MONO % 22.6 % (2.0-8.0); NEUTROPHILS # 4.7 10^3/uL (1.5-8.5); PLATELET COUNT, AUTOMATED 293 10^3/uL (150-450); RED BLOOD COUNT 3.84 10^6/uL (4.00-5.40); WHITE BLOOD COUNT 7.4 10^3/uL (4.0-10.0)
[2023-01-16 14:35] LABS: INR 0.93; PROTHROMBIN TIME 12.7 SECONDS (12.5-14.5)
[2023-01-16 14:36] LABS: PARTIAL THROMBOPLASTIN TIME 28.1 SECONDS (24.8-34.2)
[2023-01-16 14:38] LABS: D-DIMER QUANT 650.69 ng/ml (<500)
[2023-01-16 14:43] LABS: MONO # 1.7 10^3/uL (0.0-0.8)
[2023-01-16 14:59] LABS: RSV AMPLIFICATION NEGATIVE (NEGATIVE)
[2023-01-16 15:03] LABS: ALBUMIN 3.5 G/DL (3.2-5.2); ALKALINE PHOSPHATASE 90 U/L (46-116); ALT/SGPT 21 U/L (7.0-40); AST/SGOT 20 U/L (<34); BILIRUBIN,TOTAL 0.2 MG/DL (0.3-1.2); BLOOD UREA NITROGEN 21 MG/DL (9-23); CARBON DIOXIDE LEVEL 35 MMOL/L (20-31); CHLORIDE LEVEL 95 MMOL/L (98-107); CREATININE FOR GFR 0.69 MG/DL (0.55-1.30); FERRITIN 96.5 NG/ML (7.3-270.7); GLOMERULAR FILTRATION RATE > 60.0 (>45); GLUCOSE, FASTING 161 MG/DL (74-106); POTASSIUM SERUM 4.9 MMOL/L (3.5-5.1); SODIUM LEVEL 134 MMOL/L (136-145); TOTAL PROTEIN 6.6 G/DL (5.7-8.2)
[2023-01-16] MEDS ORDERED: NS 500 ML IV ONE (16:10)
[2023-01-16] MEDS ORDERED: ISOVUE-370 76% 100ML VIAL As Ordered ONE (16:15)
[2023-01-16] MEDS ORDERED: GLUCAGON INJ 1MG VIAL SC PRN (16:20)
[2023-01-16] MEDS ORDERED: DEXTROSE 50% 50ML SYRINGE IV PRN (16:20)
[2023-01-16] MEDS ORDERED: GLUCOSE 4GM CHEW TABLET PO PRN (16:20)
[2023-01-16] MEDS ORDERED: GABA600T4 PO (16:52)
[2023-01-16] MEDS ORDERED: BUDE10.7 INH (16:55)
[2023-01-16] MEDS ORDERED: TIZA10TA PO (16:58)
[2023-01-16] MEDS ORDERED: ERGO500029 PO (16:58)
[2023-01-16] MEDS ORDERED: EZET10TA21 PO (16:58)
[2023-01-16] MEDS ORDERED: HOME MED LIST COMPLETE! XX SCH (17:05)
[2023-01-16 17:45] LABS: CK-MB VALUE MASS < 1.0 NG/ML (<3.6)
[2023-01-16 17:51] LABS: CPK CREATINE PHOSPHOKINASE 59 U/L (34-145); MB/CK RELATIVE INDEX 1.69 (< OR =4)
[2023-01-16] MEDS ORDERED: tiZANidine 4 MG TAB PO PRN (17:55)
[2023-01-16] MEDS ORDERED: ALPRAZolam 0.5 MG TAB PO PRN (17:55)
[2023-01-16 18:00] VITALS: BP 114/66
[2023-01-16] MEDS: INSULIN LISPRO (NovoLOG) PER UNIT SC SCH ×2 (18:49→20:53)
[2023-01-16] MEDS ORDERED: ALLO300T2 PO (18:58)
[2023-01-16 19:28] LABS: CK-MB VALUE MASS < 1.0 NG/ML (<3.6)
[2023-01-16 19:41] LABS: CPK CREATINE PHOSPHOKINASE 66 U/L (34-145); MB/CK RELATIVE INDEX 1.51 (< OR =4)
[2023-01-16] MEDS ORDERED: REMDESIVIR 200 MG in NS 250 ML IV ONE (20:00)
[2023-01-16] MEDS: methylPREDNISolone 125MG 2ML VIAL IV SCH (20:49)
[2023-01-16] MEDS: LR 1,000 ML IV SCH (20:49)
[2023-01-16] MEDS: ATORVASTATIN 20 MG TAB PO SCH (20:51)
[2023-01-16] MEDS: GABAPENTIN 300 MG CAP PO SCH (20:52)
[2023-01-16] MEDS: DOXYCYCLINE HYCLATE 100MG TABLET PO SCH (20:52)
[2023-01-16] MEDS: EZETIMIBE 10MG TABLET (ZETIA) PO SCH (20:52)
[2023-01-16] MEDS: ENOXAPARIN 40MG/0.4ML SYRINGE (J1650 PER 10MG) SC SCH (20:53)
[2023-01-16] MEDS: METOPROLOL TART 12.5 MG PER 1/2 TAB PO SCH (20:54)
[2023-01-16 22:00] VITALS: BP 114/65
[2023-01-16] MEDS ORDERED: SODIUM CHLORIDE 0.9% INJ 10 ML SYR IV ONE (22:00)
[2023-01-16] MEDS: NORCO, ANEXSIA 5/325MG TABLET (HYDROcodone/ACETAMINOPHEN) PO PRN (23:50)
[2023-01-17] MEDS ORDERED: CHLORASEPTIC SPRAY MT PRN
[2023-01-17 00:59] LABS: CK-MB VALUE MASS < 1.0 NG/ML (<3.6)
[2023-01-17 01:00] LABS: CPK CREATINE PHOSPHOKINASE 72 U/L (34-145); MB/CK RELATIVE INDEX 1.38 (< OR =4)
[2023-01-17] MEDS: methylPREDNISolone 125MG 2ML VIAL IV SCH ×4 (01:24→20:17)
[2023-01-17] MEDS: COMBIVENT RESPIMAT 100-20MCG INHALER 4GM INH SCH ×6 (03:46→23:35)
[2023-01-17 06:00] VITALS: BP 135/63
[2023-01-17 06:04] LABS: HEMATOCRIT 33.9 % (36.0-47.0); HEMOGLOBIN 10.3 g/dl (12.0-15.5); MEAN CORPUSCULAR HEMOGLOBIN 28.4 pg (27.0-33.0); MEAN CORPUSCULAR HGB CONC 30.4 g/dl (32.0-36.5); MEAN CORPUSCULAR VOLUME 93.4 fl (80.0-96.0); PLATELET COUNT, AUTOMATED 264 10^3/uL (150-450); RED BLOOD COUNT 3.63 10^6/uL (4.00-5.40); WHITE BLOOD COUNT 5.7 10^3/uL (4.0-10.0)
[2023-01-17 06:33] LABS: CK-MB VALUE MASS < 1.0 NG/ML (<3.6)
[2023-01-17 06:37] LABS: CPK CREATINE PHOSPHOKINASE 67 U/L (34-145); MB/CK RELATIVE INDEX 1.49 (< OR =4)
[2023-01-17 06:39] LABS: ALKALINE PHOSPHATASE 78 U/L (46-116); ALT/SGPT 17 U/L (7.0-40); AST/SGOT 15 U/L (<34); BILIRUBIN,TOTAL 0.2 MG/DL (0.3-1.2); BLOOD UREA NITROGEN 27 MG/DL (9-23); CALCIUM LEVEL 8.4 MG/DL (8.3-10.6); CARBON DIOXIDE LEVEL 33 MMOL/L (20-31); CHLORIDE LEVEL 99 MMOL/L (98-107); CREATININE FOR GFR 0.65 MG/DL (0.55-1.30); GLOMERULAR FILTRATION RATE > 60.0 (>45); GLUCOSE, FASTING 262 MG/DL (74-106); POTASSIUM SERUM 5.1 MMOL/L (3.5-5.1); SODIUM LEVEL 136 MMOL/L (136-145)
[2023-01-17] MEDS: LR 1,000 ML IV SCH (07:56)
[2023-01-17] MEDS: GABAPENTIN 300 MG CAP PO SCH ×3 (07:59→20:17)
[2023-01-17] MEDS: INSULIN LISPRO (NovoLOG) PER UNIT SC SCH ×4 (07:59→20:22)
[2023-01-17] MEDS: ASPIRIN 81MG CHEW TABLET PO SCH (08:00)
[2023-01-17] MEDS: DOXYCYCLINE HYCLATE 100MG TABLET PO SCH ×2 (08:00→20:17)
[2023-01-17] MEDS: FUROSEMIDE 20 MG TAB PO SCH (08:00)
[2023-01-17] MEDS: allopurinoL 300 MG TAB PO SCH (08:00)
[2023-01-17] MEDS: METOPROLOL TART 12.5 MG PER 1/2 TAB PO SCH ×2 (08:00→20:20)
[2023-01-17] MEDS: CLOPIDOGREL 75 MG TAB PO SCH (08:01)
[2023-01-17] MEDS: lisinopriL 5 MG TAB PO SCH (08:01)
[2023-01-17] MEDS: NORCO, ANEXSIA 5/325MG TABLET (HYDROcodone/ACETAMINOPHEN) PO PRN ×2 (08:10→17:19)
[2023-01-17] MEDS: SITagliptin 50 MG TAB (JANUVIA) PO SCH (08:10)
[2023-01-17] MEDS: ALPRAZolam 0.5 MG TAB PO SCH ×2 (11:56→17:19)
[2023-01-17 14:00] VITALS: BP 116/54
[2023-01-17 20:00] VITALS: BP 161/85
[2023-01-17] MEDS ORDERED: REMDESIVIR 100 MG in NS 250 ML IV SCH (20:00)
[2023-01-17] MEDS: ATORVASTATIN 20 MG TAB PO SCH (20:17)
[2023-01-17] MEDS: ENOXAPARIN 40MG/0.4ML SYRINGE (J1650 PER 10MG) SC SCH (20:17)
[2023-01-17] MEDS: EZETIMIBE 10MG TABLET (ZETIA) PO SCH (20:18)
[2023-01-17] MEDS ORDERED: SODIUM CHLORIDE 0.9% INJ 10 ML SYR IV SCH (21:00)
[2023-01-18] MEDS: ALPRAZolam 0.5 MG TAB PO SCH ×3 (00:04→12:15)
[2023-01-18] MEDS: NORCO, ANEXSIA 5/325MG TABLET (HYDROcodone/ACETAMINOPHEN) PO PRN ×2 (01:43→09:23)
[2023-01-18] MEDS: methylPREDNISolone 125MG 2ML VIAL IV SCH ×2 (01:43→09:20)
[2023-01-18] MEDS: COMBIVENT RESPIMAT 100-20MCG INHALER 4GM INH SCH ×3 (03:26→10:47)
[2023-01-18 06:00] VITALS: BP 134/85
[2023-01-18 06:09] LABS: HEMATOCRIT 32.1 % (36.0-47.0); HEMOGLOBIN 10.1 g/dl (12.0-15.5); MEAN CORPUSCULAR HEMOGLOBIN 28.5 pg (27.0-33.0); MEAN CORPUSCULAR HGB CONC 31.5 g/dl (32.0-36.5); MEAN CORPUSCULAR VOLUME 90.7 fl (80.0-96.0); PLATELET COUNT, AUTOMATED 291 10^3/uL (150-450); RED BLOOD COUNT 3.54 10^6/uL (4.00-5.40); WHITE BLOOD COUNT 11.7 10^3/uL (4.0-10.0)
[2023-01-18 06:45] LABS: ALBUMIN 2.9 G/DL (3.2-5.2); ALKALINE PHOSPHATASE 78 U/L (46-116); ALT/SGPT 17 U/L (7.0-40); AST/SGOT 31 U/L (<34); BILIRUBIN,TOTAL < 0.2 MG/DL (0.3-1.2); BLOOD UREA NITROGEN 32 MG/DL (9-23); CALCIUM LEVEL 8.3 MG/DL (8.3-10.6); CARBON DIOXIDE LEVEL 32 MMOL/L (20-31); CHLORIDE LEVEL 102 MMOL/L (98-107); GLOMERULAR FILTRATION RATE > 60.0 (>45); GLUCOSE, FASTING 270 MG/DL (74-106); POTASSIUM SERUM 4.9 MMOL/L (3.5-5.1); SODIUM LEVEL 137 MMOL/L (136-145); TOTAL PROTEIN 5.7 G/DL (5.7-8.2)
[2023-01-18] MEDS: INSULIN LISPRO (NovoLOG) PER UNIT SC SCH ×2 (09:20→12:15)
[2023-01-18] MEDS: ASPIRIN 81MG CHEW TABLET PO SCH (09:20)
[2023-01-18] MEDS: DOXYCYCLINE HYCLATE 100MG TABLET PO SCH (09:21)
[2023-01-18] MEDS: FUROSEMIDE 20 MG TAB PO SCH (09:21)
[2023-01-18 09:22] VITALS: BP 145/99
[2023-01-18] MEDS: METOPROLOL TART 12.5 MG PER 1/2 TAB PO SCH (09:22)
[2023-01-18] MEDS: GABAPENTIN 300 MG CAP PO SCH (09:22)
[2023-01-18] MEDS: allopurinoL 300 MG TAB PO SCH (09:23)
[2023-01-18] MEDS: CLOPIDOGREL 75 MG TAB PO SCH (09:23)
[2023-01-18] MEDS: SITagliptin 50 MG TAB (JANUVIA) PO SCH (09:23)
[2023-01-18] MEDS: lisinopriL 5 MG TAB PO SCH (09:23)
[2023-01-18] MEDS ORDERED: REMDESIVIR 100 MG in NS 250 ML IV ONE (12:00)
[2023-01-18] MEDS ORDERED: SODIUM CHLORIDE 0.9% INJ 10 ML SYR IV ONE (13:00)
[2023-01-18] MEDS ORDERED: PRED20TA PO (13:42)
== END 2023-01-18 14:32 | disposition home or self-care (01) | DRG 871 ==
LOC: M ED 11:57 → M ED INP 16:09 → ENRESERV 16:42 → M MSPAV 18:00
PROVIDERS: ADMIT General Practice; ATTEND Internal Medicine
PROC: 3E0333Z Introduction of Anti-inflammatory into Peripheral Vein, Percutaneous Approach (ICD-10-PCS; principal; 2023-01-16)
PROC: XW033E5 Introduction of Remdesivir Anti-infective into Peripheral Vein, Percutaneous Approach, New Technology Group 5 (ICD-10-PCS; 2023-01-16)
DX: A41.89 Other specified sepsis (principal); J96.21 Acute and chronic respiratory failure with hypoxia; U07.1 COVID-19; I50.32 Chronic diastolic (congestive) heart failure; J44.1 Chronic obstructive pulmonary disease with (acute) exacerbation; E87.1 Hypo-osmolality and hyponatremia; E87.3 Alkalosis; I11.0 Hypertensive heart disease with heart failure; I25.10 Atherosclerotic heart disease of native coronary artery without angina pectoris; E11.65 Type 2 diabetes mellitus with hyperglycemia; E11.42 Type 2 diabetes mellitus with diabetic polyneuropathy; E78.5 Hyperlipidemia, unspecified; M19.90 Unspecified osteoarthritis, unspecified site; F41.9 Anxiety disorder, unspecified; G47.00 Insomnia, unspecified; E66.9 Obesity, unspecified; D63.8 Anemia in other chronic diseases classified elsewhere; M54.16 Radiculopathy, lumbar region; Z90.79 Acquired absence of other genital organ(s); Z87.891 Personal history of nicotine dependence; Z95.5 Presence of coronary angioplasty implant and graft; Z99.81 Dependence on supplemental oxygen; Z79.82 Long term (current) use of aspirin; Z79.84 Long term (current) use of oral hypoglycemic drugs; Z79.899 Other long term (current) drug therapy; Z88.0 Allergy status to penicillin; Z88.8 Allergy status to other drugs, medicaments and biological substances; Z88.2 Allergy status to sulfonamides; Z68.31 Body mass index [BMI] 31.0-31.9, adult

== ENCOUNTER 2023-03-18 03:50 | Inpatient (IN) | payer MEDICARE, OTHER ==
[2023-03-18] VITALS (62 sets, daily range): BP systolic 98–140; BP diastolic 55–77; TEMP 97.7–97.8; O2SAT 92–100
[~2023-03-18] VITALS: Ht 165.1 cm; Wt 99.4 kg
[~2023-03-18 03:50] MED LIST changes: +ALLO300T2 PO; +BUDE10.7 INH; +ERGO500029 PO; +EZET10TA21 PO; +FLUT50SP17; -FLUTISP; +GABA600T4 PO; +POTA-298 PO; -POTA1TAB14 PO
[2023-03-18] MEDS ORDERED: ETOMIDATE INJ 20MG/10ML VIAL IV STA (03:59)
[2023-03-18] MEDS ORDERED: ROCURONIUM BROMIDE 50MG/5ML VIAL IV SCH (04:00)
[2023-03-18 04:33] LABS: HEMATOCRIT 43.1 % (36.0-47.0); HEMOGLOBIN 12.9 g/dl (12.0-15.5); MEAN CORPUSCULAR HEMOGLOBIN 28.3 pg (27.0-33.0); MEAN CORPUSCULAR HGB CONC 29.9 g/dl (32.0-36.5); MEAN CORPUSCULAR VOLUME 94.5 fl (80.0-96.0); PLATELET COUNT, AUTOMATED 398 10^3/uL (150-450); RED BLOOD COUNT 4.56 10^6/uL (4.00-5.40); WHITE BLOOD COUNT 16.8 10^3/uL (4.0-10.0)
[2023-03-18 04:43] LABS: INR 0.9; PROTHROMBIN TIME 12.3 SECONDS (12.5-14.5)
[2023-03-18] MEDS: propofoL 1,000 MG in IV 1 EA IV SCH ×2 (04:48→06:01)
[2023-03-18 04:50] LABS: ATYPICAL LYMPH 3 % (0-5); BASOPHILS 2 % (0-1); EOSINOPHILS 2 % (0-3); LYMPHOCYTES 34 % (16-44); MONOCYTES 8 % (0-5); MYELOCYTES 1 % (0-0); NEUTROPHILS 50 % (28-66); PLATELET ESTIMATE NORMAL (NORMAL)
[2023-03-18 04:51] LABS: POLYCHROMASIA 1+
[2023-03-18 04:52] LABS: ABG BASE EXCESS -4.1 (-2.0-2.0); ABG HCO3 26.9 MMOL/L (22.0-26.0); ABG O2 SATURATION 99.2 % (95.0-99.0); ABG PARTIAL PRESSURE CO2 82.1 mmHg (35.0-45.0); ABG PARTIAL PRESSURE O2 205.5 mmHg (75.0-100.0); ABG STANDARD HCO3 21.1 MMOL/L. (22.0-26.0); ABG TOTAL CO2 29.4 MMOL/L (23.0-31.0); ABG pH (ARTERIAL) 7.133 UNITS (7.350-7.450)
[2023-03-18 04:53] LABS: HYPOCHROMASIA 2+; PLATELET CLUMPS SMALL AMT
[2023-03-18] MEDS ORDERED: SODIUM BICARBONATE 8.4% INJ 50ML SYRINGE IV STA (04:54)
[2023-03-18 05:01] LABS: THYROXINE (T4) 10.9 UG/DL (4.5-10.9)
[2023-03-18 05:07] LABS: ALBUMIN 3.6 G/DL (3.2-5.2); ALKALINE PHOSPHATASE 118 U/L (46-116); ALT/SGPT 35 U/L (7.0-40); AST/SGOT 72 U/L (<34); BILIRUBIN,DIRECT < 0.1 MG/DL (<0.4); BILIRUBIN,TOTAL < 0.2 MG/DL (0.3-1.2); BLOOD UREA NITROGEN 42 MG/DL (9-23); CALCIUM LEVEL 8.9 MG/DL (8.3-10.6); CARBON DIOXIDE LEVEL 28 MMOL/L (20-31); CHLORIDE LEVEL 96 MMOL/L (98-107); CK-MB VALUE MASS < 1.0 NG/ML (<3.6); CPK CREATINE PHOSPHOKINASE 110 U/L (34-145); CREATININE FOR GFR 1.27 MG/DL (0.55-1.30); GLOMERULAR FILTRATION RATE 44.7 (>45); GLUCOSE, FASTING 409 MG/DL (74-106); SODIUM LEVEL 135 MMOL/L (136-145); TOTAL PROTEIN 7.4 G/DL (5.7-8.2)
[2023-03-18 05:08] LABS: POTASSIUM SERUM 6.5 MMOL/L (3.5-5.1)
[2023-03-18] MEDS ORDERED: HumuLIN R (REGULAR) INSULIN (NovoLIN R) **100U/ML** PER UNIT IV ONE (05:10)
[2023-03-18] MEDS ORDERED: NS IV ONE (05:30)
[2023-03-18] MEDS ORDERED: LevoFLOXacin IV 750 MG in IV 1 EA IV ONE (05:30)
[2023-03-18] MEDS ORDERED: MIDAZOLAM 5MG/ML 1ML VIAL IV ONE ×2 (06:05→06:45)
[2023-03-18] MEDS ORDERED: MIDAZOLAM 100MG/100ML-0.9%NACL 100 MG in IV 1 EA IV SCH (06:05)
[2023-03-18 06:19] LABS: CALCIUM LEVEL 8.7 MG/DL (8.3-10.6); CK-MB VALUE MASS 1.4 NG/ML (<3.6); CREATININE FOR GFR 1.18 MG/DL (0.55-1.30); GLOMERULAR FILTRATION RATE 48.6 (>45); POTASSIUM SERUM 5.6 MMOL/L (3.5-5.1)
[2023-03-18 06:29] LABS: MB/CK RELATIVE INDEX 1.81 (< OR =4)
[2023-03-18] MEDS ORDERED: NOREPINEPHRINE 4MG IN D5 250ML 4 MG in IV 1 EA IV SCH ×4 (07:10→09:00)
[2023-03-18] MEDS ORDERED: NS 1,000 ML IV ONE (07:10)
[2023-03-18 07:38] LABS: ABG pH (ARTERIAL) 7.251 UNITS (7.350-7.450)
[2023-03-18 07:40] LABS: ABG BASE EXCESS 3.7 (-2.0-2.0); ABG HCO3 32.9 MMOL/L (22.0-26.0); ABG O2 SATURATION 99.3 % (95.0-99.0); ABG PARTIAL PRESSURE O2 202.3 mmHg (75.0-100.0); ABG STANDARD HCO3 27.9 MMOL/L. (22.0-26.0); ABG TOTAL CO2 35.3 MMOL/L (23.0-31.0)
[2023-03-18 07:42] LABS: ABG PARTIAL PRESSURE CO2 76.6 mmHg (35.0-45.0)
[2023-03-18] MEDS ORDERED: fentaNYL 100 MCG/2 ML INJECTION IV ONE (07:55)
[2023-03-18] MEDS ORDERED: MIDAZOLAM INJ 2MG/2ML VIAL IV STA (07:55)
[2023-03-18] MEDS ORDERED: fentaNYL 100 MCG/2 ML INJECTION As Ordered ONE (07:58)
[2023-03-18] MEDS ORDERED: ASPI-161 PO (08:00)
[2023-03-18] MEDS ORDERED: HOME MED LIST COMPLETE! XX SCH (08:00)
[2023-03-18] MEDS ORDERED: GLUCAGON INJ 1MG VIAL SC PRN (08:15)
[2023-03-18] MEDS ORDERED: GLUCOSE 4GM CHEW TABLET PO PRN (08:15)
[2023-03-18] MEDS ORDERED: DEXTROSE 50% 50ML SYRINGE IV PRN (08:15)
[2023-03-18] MEDS: fentaNYL 100 MCG/2 ML INJECTION IV PRN ×5 (08:41→22:01)
[2023-03-18] MEDS ORDERED: ENOXAPARIN 40MG/0.4ML SYRINGE (J1650 PER 10MG) SC SCH (09:00)
[2023-03-18] MEDS ORDERED: ASPIRIN 81MG ENTERIC TABLET PO SCH (09:00)
[2023-03-18] MEDS ORDERED: LORazepam 2 MG/ML 1ML VIAL IV STA ×2 (09:12→16:51)
[2023-03-18] MEDS: IPRATROPIUM 0.5MG/ALBUTEROL 2.5MG INH SOL UD 3ML (DUONEB) NEB SCH ×4 (09:18→19:09)
[2023-03-18] MEDS: CHLORHEXIDINE GLUCONATE 0.12 % 15ML UDC (PERIDEX ORAL RINSE) MT SCH ×2 (09:19→21:01)
[2023-03-18] MEDS: CLOPIDOGREL 75 MG TAB PO SCH (09:20)
[2023-03-18] MEDS: methylPREDNISolone 125MG 2ML VIAL IV SCH ×2 (09:21→16:58)
[2023-03-18] MEDS: PANTOPRAZOLE 40MG VIAL IV SCH (09:24)
[2023-03-18] MEDS: ASPIRIN 81MG CHEW TABLET PEG SCH (09:25)
[2023-03-18] MEDS ORDERED: VANCOMYCIN HCL 1,000 MG, VIAL MATE ADAPTER 1 EACH in D5W 250 ML IV ONE (10:00)
[2023-03-18] MEDS ORDERED: NS 1,000 ML IV SCH (10:25)
[2023-03-18] MEDS: AZTREONAM 2 GM in D5W MINI-BAG PLUS 100 ML IV SCH ×2 (10:51→18:03)
[2023-03-18] MEDS: INSULIN LISPRO (NovoLOG) PER UNIT SC SCH ×2 (12:06→18:03)
[2023-03-18] MEDS: VANCOMYCIN HCL 1,000 MG, VIAL MATE ADAPTER 1 EACH in D5W 250 ML IV SCH (12:06)
[2023-03-18 13:46] LABS: ABG HCO3 28.3 MMOL/L (22.0-26.0); ABG O2 SATURATION 96.9 % (95.0-99.0); ABG PARTIAL PRESSURE CO2 51.9 mmHg (35.0-45.0); ABG PARTIAL PRESSURE O2 91.4 mmHg (75.0-100.0); ABG STANDARD HCO3 26.2 MMOL/L. (22.0-26.0); ABG TOTAL CO2 29.9 MMOL/L (23.0-31.0); ABG pH (ARTERIAL) 7.354 UNITS (7.350-7.450)
[2023-03-18 14:32] LABS: CALCIUM LEVEL 7.5 MG/DL (8.3-10.6); CREATININE FOR GFR 1.09 MG/DL (0.55-1.30); GLOMERULAR FILTRATION RATE 53.3 (>45); POTASSIUM SERUM 4.6 MMOL/L (3.5-5.1)
[2023-03-18] MEDS: MIDAZOLAM INJ 2MG/2ML VIAL IV PRN ×6 (14:51→23:18)
[2023-03-18] MEDS ORDERED: ETOMIDATE INJ 20MG/10ML VIAL ONE (16:24)
[2023-03-18] MEDS ORDERED: ROCURONIUM BROMIDE 50MG/5ML VIAL ONE (16:24)
[2023-03-18] MEDS: MIDAZOLAM 100MG/100ML-0.9%NACL 100 MG in IV 1 EA IV SCH (17:53)
[2023-03-18] MEDS: dexmedeTOMidine 200 MCG in IV 1 EA IV SCH ×2 (18:16→22:40)
[2023-03-18] MEDS: ATORVASTATIN 20 MG TAB PO SCH (21:01)
[2023-03-19] VITALS (40 sets, daily range): BP systolic 107–170; BP diastolic 55–97; TEMP 97.1–102.8; O2SAT 90–96
[2023-03-19] MEDS: VANCOMYCIN HCL 1,000 MG, VIAL MATE ADAPTER 1 EACH in D5W 250 ML IV SCH ×3 (00:17→23:31)
[2023-03-19] MEDS: INSULIN LISPRO (NovoLOG) PER UNIT SC SCH ×5 (00:17→23:38)
[2023-03-19] MEDS: methylPREDNISolone 125MG 2ML VIAL IV SCH ×3 (00:17→17:20)
[2023-03-19] MEDS: MIDAZOLAM INJ 2MG/2ML VIAL IV PRN ×10 (00:18→23:38)
[2023-03-19] MEDS: dexmedeTOMidine 200 MCG in IV 1 EA IV SCH ×13 (01:11→23:31)
[2023-03-19] MEDS: fentaNYL 100 MCG/2 ML INJECTION IV PRN ×7 (02:19→18:39)
[2023-03-19] MEDS: AZTREONAM 2 GM in D5W MINI-BAG PLUS 100 ML IV SCH ×3 (02:27→18:41)
[2023-03-19 04:46] LABS: HEMATOCRIT 33.1 % (36.0-47.0); MEAN CORPUSCULAR HEMOGLOBIN 28.7 pg (27.0-33.0); MEAN CORPUSCULAR HGB CONC 31.4 g/dl (32.0-36.5); MEAN CORPUSCULAR VOLUME 91.2 fl (80.0-96.0); PLATELET COUNT, AUTOMATED 255 10^3/uL (150-450); RED BLOOD COUNT 3.63 10^6/uL (4.00-5.40); WHITE BLOOD COUNT 13.2 10^3/uL (4.0-10.0)
[2023-03-19 05:06] LABS: HEMOGLOBIN 10.4 g/dl (12.0-15.5)
[2023-03-19] MEDS: CIPROFLOXACIN 400 MG in IV 1 EA IV SCH ×2 (05:17→17:20)
[2023-03-19 05:40] LABS: ALBUMIN 2.8 G/DL (3.2-5.2); ALKALINE PHOSPHATASE 69 U/L (46-116); ALT/SGPT 25 U/L (7.0-40); AST/SGOT 51 U/L (<34); BILIRUBIN,TOTAL 0.2 MG/DL (0.3-1.2); BLOOD UREA NITROGEN 35 MG/DL (9-23); CALCIUM LEVEL 7.8 MG/DL (8.3-10.6); CARBON DIOXIDE LEVEL 29 MMOL/L (20-31); CHLORIDE LEVEL 107 MMOL/L (98-107); CREATININE FOR GFR 0.93 MG/DL (0.55-1.30); GLOMERULAR FILTRATION RATE > 60.0 (>45); GLUCOSE, FASTING 241 MG/DL (74-106); MAGNESIUM LEVEL 1.5 MG/DL (1.8-2.4); SODIUM LEVEL 142 MMOL/L (136-145); TOTAL PROTEIN 5.7 G/DL (5.7-8.2)
[2023-03-19] MEDS: MAG SULF 1GM/100ML (MAG RUN) 1 GM in IV 1 EA IV SCH ×2 (05:51→06:49)
[2023-03-19 06:08] LABS: ABG BASE EXCESS 4.1 (-2.0-2.0); ABG HCO3 28.5 MMOL/L (22.0-26.0); ABG O2 SATURATION 98.7 % (95.0-99.0); ABG PARTIAL PRESSURE O2 127.5 mmHg (75.0-100.0); ABG STANDARD HCO3 28.2 MMOL/L. (22.0-26.0); ABG TOTAL CO2 29.8 MMOL/L (23.0-31.0)
[2023-03-19] MEDS: IPRATROPIUM 0.5MG/ALBUTEROL 2.5MG INH SOL UD 3ML (DUONEB) NEB SCH ×4 (07:32→19:07)
[2023-03-19] MEDS ORDERED: HEPARIN SOD (PORCINE) 5000UNITS/ML 1ML VIAL/SYRINGE IV ONE (08:00)
[2023-03-19] MEDS ORDERED: FUROSEMIDE 20MG/2ML VIAL IV ONE (08:00)
[2023-03-19] MEDS ORDERED: HEPARIN SOD (PORCINE) 5000UNITS/ML 1ML VIAL/SYRINGE IV PRN (08:00)
[2023-03-19] MEDS: PANTOPRAZOLE 40MG VIAL IV SCH (08:46)
[2023-03-19] MEDS: CLOPIDOGREL 75 MG TAB PO SCH (08:46)
[2023-03-19] MEDS: CHLORHEXIDINE GLUCONATE 0.12 % 15ML UDC (PERIDEX ORAL RINSE) MT SCH ×2 (08:46→20:14)
[2023-03-19] MEDS: ASPIRIN 81MG CHEW TABLET PEG SCH (08:46)
[2023-03-19] MEDS: HEPARIN DRIP 25,000 UNITS in IV 1 EA IV SCH (09:22)
[2023-03-19] MEDS: MIDAZOLAM 100MG/100ML-0.9%NACL 100 MG in IV 1 EA IV SCH (10:45)
[2023-03-19] MEDS ORDERED: fentaNYL 100 MCG/2 ML INJECTION IV STA (12:09)
[2023-03-19] MEDS ORDERED: KETOROLAC 30 MG/ML 1ML VIAL IV ONE (18:05)
[2023-03-19] MEDS: ATORVASTATIN 20 MG TAB PO SCH (20:14)
[2023-03-19] MEDS: METOPROLOL TART 12.5 MG PER 1/2 TAB FT SCH (20:14)
[2023-03-19 21:43] LABS: INR 1.12; PROTHROMBIN TIME 14.6 SECONDS (12.5-14.5)
[2023-03-19 21:45] LABS: PARTIAL THROMBOPLASTIN TIME 90.3 SECONDS (24.8-34.2)
[2023-03-20] VITALS (30 sets, daily range): BP systolic 106–155; BP diastolic 56–86; TEMP 97.8–98.1; O2SAT 87–97
[2023-03-20] MEDS: methylPREDNISolone 125MG 2ML VIAL IV SCH ×3 (00:28→16:59)
[2023-03-20] MEDS: dexmedeTOMidine 200 MCG in IV 1 EA IV SCH ×8 (00:56→10:51)
[2023-03-20] MEDS: HEPARIN DRIP 25,000 UNITS in IV 1 EA IV SCH ×2 (00:57→18:41)
[2023-03-20] MEDS: MIDAZOLAM INJ 2MG/2ML VIAL IV PRN (02:47)
[2023-03-20] MEDS: MIDAZOLAM 100MG/100ML-0.9%NACL 100 MG in IV 1 EA IV SCH (04:05)
[2023-03-20 05:18] LABS: CK-MB VALUE MASS 3.3 NG/ML (<3.6)
[2023-03-20 05:42] LABS: MB/CK RELATIVE INDEX 0.17 (< OR =4)
[2023-03-20 05:50] LABS: ABG BASE EXCESS 3.6 (-2.0-2.0); ABG HCO3 26.3 MMOL/L (22.0-26.0); ABG PARTIAL PRESSURE CO2 33.5 mmHg (35.0-45.0); ABG PARTIAL PRESSURE O2 64.4 mmHg (75.0-100.0); ABG STANDARD HCO3 27.6 MMOL/L. (22.0-26.0); ABG TOTAL CO2 27.3 MMOL/L (23.0-31.0); ABG pH (ARTERIAL) 7.513 UNITS (7.350-7.450)
[2023-03-20] MEDS: INSULIN LISPRO (NovoLOG) PER UNIT SC SCH ×4 (06:04→20:32)
[2023-03-20] MEDS: CIPROFLOXACIN 400 MG in IV 1 EA IV SCH (06:04)
[2023-03-20] MEDS: IPRATROPIUM 0.5MG/ALBUTEROL 2.5MG INH SOL UD 3ML (DUONEB) NEB SCH ×4 (07:33→19:19)
[2023-03-20 08:16] LABS: HEMATOCRIT 34.1 % (36.0-47.0); HEMOGLOBIN 10.8 g/dl (12.0-15.5); MEAN CORPUSCULAR HEMOGLOBIN 28.5 pg (27.0-33.0); MEAN CORPUSCULAR HGB CONC 31.7 g/dl (32.0-36.5); PLATELET COUNT, AUTOMATED 238 10^3/uL (150-450); RED BLOOD COUNT 3.79 10^6/uL (4.00-5.40); WHITE BLOOD COUNT 13.4 10^3/uL (4.0-10.0)
[2023-03-20] MEDS: ASPIRIN 81MG CHEW TABLET PEG SCH (08:25)
[2023-03-20] MEDS: CHLORHEXIDINE GLUCONATE 0.12 % 15ML UDC (PERIDEX ORAL RINSE) MT SCH (08:26)
[2023-03-20] MEDS: CLOPIDOGREL 75 MG TAB PO SCH (08:26)
[2023-03-20] MEDS: METOPROLOL TART 12.5 MG PER 1/2 TAB FT SCH ×2 (08:26→20:30)
[2023-03-20] MEDS: PANTOPRAZOLE 40MG VIAL IV SCH (08:27)
[2023-03-20 08:41] LABS: ALBUMIN 2.6 G/DL (3.2-5.2); BILIRUBIN,TOTAL 0.2 MG/DL (0.3-1.2); CALCIUM LEVEL 7.6 MG/DL (8.3-10.6); CREATININE FOR GFR 1.13 MG/DL (0.55-1.30); GLOMERULAR FILTRATION RATE 51.1 (>45); TOTAL PROTEIN 5.9 G/DL (5.7-8.2)
[2023-03-20] MEDS ORDERED: FUROSEMIDE 20MG/2ML VIAL IV ONE (11:10)
[2023-03-20] MEDS: VANCOMYCIN HCL 750 MG, VIAL MATE ADAPTER 1 EACH in D5W 250 ML IV SCH ×2 (11:56→23:49)
[2023-03-20] MEDS ORDERED: NORCO, ANEXSIA 5/325MG TABLET (HYDROcodone/ACETAMINOPHEN) PO ONE (16:40)
[2023-03-20] MEDS ORDERED: DEXTROSE 50% 50ML SYRINGE IV PRN (16:50)
[2023-03-20] MEDS ORDERED: GLUCAGON INJ 1MG VIAL SC PRN (16:50)
[2023-03-20] MEDS ORDERED: GLUCOSE 4GM CHEW TABLET PO PRN (16:50)
[2023-03-20] MEDS: ATORVASTATIN 20 MG TAB PO SCH (20:27)
[2023-03-20] MEDS ORDERED: LIDOCAINE 5% (LIDODERM) PATCH TD ONE (22:00)
[2023-03-20] MEDS: guaiFENesin ER 600 MG TAB PO SCH (22:00)
[2023-03-20] MEDS: NORCO, ANEXSIA 5/325MG TABLET (HYDROcodone/ACETAMINOPHEN) PO PRN (22:04)
[2023-03-21] VITALS (9 sets, daily range): BP systolic 107–146; BP diastolic 57–80; TEMP 96.1–98; O2SAT 90–98
[2023-03-21] MEDS: tiZANidine 4 MG TAB PO PRN (01:17)
[2023-03-21] MEDS: GABAPENTIN 300 MG CAP PO SCH ×4 (01:17→20:34)
[2023-03-21] MEDS: methylPREDNISolone 125MG 2ML VIAL IV SCH ×3 (01:17→16:18)
[2023-03-21] MEDS: ALBUTEROL SULFATE 2.5MG/0.5ML INH NEB SOLN NEB PRN (01:51)
[2023-03-21 05:03] LABS: HEMATOCRIT 29.1 % (36.0-47.0); HEMOGLOBIN 9.1 g/dl (12.0-15.5); MEAN CORPUSCULAR HEMOGLOBIN 28.7 pg (27.0-33.0); MEAN CORPUSCULAR HGB CONC 31.3 g/dl (32.0-36.5); MEAN CORPUSCULAR VOLUME 91.8 fl (80.0-96.0); PLATELET COUNT, AUTOMATED 213 10^3/uL (150-450); RED BLOOD COUNT 3.17 10^6/uL (4.00-5.40); WHITE BLOOD COUNT 15.8 10^3/uL (4.0-10.0)
[2023-03-21 05:56] LABS: ABG BASE EXCESS 1.6 (-2.0-2.0); ABG HCO3 26.7 MMOL/L (22.0-26.0); ABG O2 SATURATION 93.3 % (95.0-99.0); ABG PARTIAL PRESSURE CO2 44.2 mmHg (35.0-45.0); ABG PARTIAL PRESSURE O2 71.7 mmHg (75.0-100.0); ABG STANDARD HCO3 25.8 MMOL/L. (22.0-26.0); ABG TOTAL CO2 28.1 MMOL/L (23.0-31.0); ABG pH (ARTERIAL) 7.399 UNITS (7.350-7.450)
[2023-03-21 06:29] LABS: ALBUMIN 2.2 G/DL (3.2-5.2); ALKALINE PHOSPHATASE 49 U/L (46-116); ALT/SGPT 27 U/L (7.0-40); AST/SGOT 67 U/L (<34); BILIRUBIN,TOTAL 0.2 MG/DL (0.3-1.2); BLOOD UREA NITROGEN 44 MG/DL (9-23); CALCIUM LEVEL 6.7 MG/DL (8.3-10.6); CARBON DIOXIDE LEVEL 30 MMOL/L (20-31); CHLORIDE LEVEL 100 MMOL/L (98-107); CPK CREATINE PHOSPHOKINASE 1844 U/L (34-145); CREATININE FOR GFR 0.74 MG/DL (0.55-1.30); GLOMERULAR FILTRATION RATE > 60.0 (>45); GLUCOSE, FASTING 418 MG/DL (74-106); MAGNESIUM LEVEL 1.8 MG/DL (1.8-2.4); POTASSIUM SERUM 3.4 MMOL/L (3.5-5.1); SODIUM LEVEL 136 MMOL/L (136-145); TOTAL PROTEIN 4.8 G/DL (5.7-8.2)
[2023-03-21] MEDS: INSULIN LISPRO (NovoLOG) PER UNIT SC SCH ×4 (06:45→20:34)
[2023-03-21] MEDS ORDERED: KCL 20MEQ IN 100ML SWI (KRUN) 20 MEQ in IV 1 EA IV ONE ×2 (07:00)
[2023-03-21] MEDS: IPRATROPIUM 0.5MG/ALBUTEROL 2.5MG INH SOL UD 3ML (DUONEB) NEB SCH ×4 (07:03→19:02)
[2023-03-21] MEDS: PANTOPRAZOLE 40MG VIAL IV SCH (08:20)
[2023-03-21] MEDS: CLOPIDOGREL 75 MG TAB PO SCH (08:22)
[2023-03-21] MEDS: SITagliptin 50 MG TAB (JANUVIA) PO SCH (08:22)
[2023-03-21] MEDS: allopurinoL 300 MG TAB PO SCH (08:22)
[2023-03-21] MEDS: guaiFENesin ER 600 MG TAB PO SCH ×2 (08:22→20:35)
[2023-03-21] MEDS: ASPIRIN 81MG CHEW TABLET PEG SCH (08:22)
[2023-03-21] MEDS: METOPROLOL TART 12.5 MG PER 1/2 TAB FT SCH ×3 (08:22→22:09)
[2023-03-21] MEDS: lisinopriL 5 MG TAB PO SCH (08:23)
[2023-03-21] MEDS: NORCO, ANEXSIA 5/325MG TABLET (HYDROcodone/ACETAMINOPHEN) PO PRN ×2 (08:29→16:18)
[2023-03-21] MEDS: AZTREONAM 2 GM in D5W MINI-BAG PLUS 100 ML IV SCH ×2 (10:37→17:27)
[2023-03-21] MEDS: ALPRAZolam 0.5 MG TAB PO PRN ×3 (10:38→21:56)
[2023-03-21] MEDS: EZETIMIBE 10MG TABLET (ZETIA) PO SCH (12:02)
[2023-03-21] MEDS: LEVEMIR (INSULIN DETEMIR) 1 UNITS/0.01ML SC SCH (12:03)
[2023-03-21] MEDS: HEPARIN DRIP 25,000 UNITS in IV 1 EA IV SCH (12:07)
[2023-03-21] MEDS: ATORVASTATIN 20 MG TAB PO SCH (20:34)
[2023-03-22] VITALS (11 sets, daily range): BP systolic 107–170; BP diastolic 58–85; TEMP 96.9–98.8; O2SAT 93–100
[2023-03-22] MEDS: methylPREDNISolone 125MG 2ML VIAL IV SCH ×2 (01:00→08:34)
[2023-03-22] MEDS: AZTREONAM 2 GM in D5W MINI-BAG PLUS 100 ML IV SCH ×3 (01:01→17:38)
[2023-03-22] MEDS: NORCO, ANEXSIA 5/325MG TABLET (HYDROcodone/ACETAMINOPHEN) PO PRN ×2 (01:10→12:30)
[2023-03-22 05:30] LABS: HEMATOCRIT 30.8 % (36.0-47.0); HEMOGLOBIN 9.8 g/dl (12.0-15.5); MEAN CORPUSCULAR HEMOGLOBIN 28.5 pg (27.0-33.0); MEAN CORPUSCULAR HGB CONC 31.8 g/dl (32.0-36.5); MEAN CORPUSCULAR VOLUME 89.5 fl (80.0-96.0); PLATELET COUNT, AUTOMATED 248 10^3/uL (150-450); RED BLOOD COUNT 3.44 10^6/uL (4.00-5.40)
[2023-03-22] MEDS: HEPARIN DRIP 25,000 UNITS in IV 1 EA IV SCH ×2 (05:54→21:33)
[2023-03-22 06:20] LABS: ALBUMIN 2.5 G/DL (3.2-5.2); ALKALINE PHOSPHATASE 55 U/L (46-116); ALT/SGPT 30 U/L (7.0-40); AST/SGOT 53 U/L (<34); BILIRUBIN,TOTAL 0.3 MG/DL (0.3-1.2); BLOOD UREA NITROGEN 46 MG/DL (9-23); CALCIUM LEVEL 8.1 MG/DL (8.3-10.6); CARBON DIOXIDE LEVEL 29 MMOL/L (20-31); CHLORIDE LEVEL 102 MMOL/L (98-107); CREATININE FOR GFR 0.68 MG/DL (0.55-1.30); GLOMERULAR FILTRATION RATE > 60.0 (>45); GLUCOSE, FASTING 288 MG/DL (74-106); POTASSIUM SERUM 4.4 MMOL/L (3.5-5.1); SODIUM LEVEL 137 MMOL/L (136-145); TOTAL PROTEIN 5.4 G/DL (5.7-8.2)
[2023-03-22] MEDS: IPRATROPIUM 0.5MG/ALBUTEROL 2.5MG INH SOL UD 3ML (DUONEB) NEB SCH ×4 (07:12→19:04)
[2023-03-22] MEDS: PANTOPRAZOLE 40MG VIAL IV SCH (08:34)
[2023-03-22] MEDS: METOPROLOL TART 12.5 MG PER 1/2 TAB FT SCH ×2 (08:35→21:35)
[2023-03-22] MEDS: ASPIRIN 81MG CHEW TABLET PEG SCH (08:36)
[2023-03-22] MEDS: CLOPIDOGREL 75 MG TAB PO SCH (08:36)
[2023-03-22] MEDS: allopurinoL 300 MG TAB PO SCH (08:36)
[2023-03-22] MEDS: lisinopriL 5 MG TAB PO SCH (08:36)
[2023-03-22] MEDS: ALPRAZolam 0.5 MG TAB PO PRN ×2 (08:36→21:43)
[2023-03-22] MEDS: LEVEMIR (INSULIN DETEMIR) 1 UNITS/0.01ML SC SCH (08:37)
[2023-03-22] MEDS: SITagliptin 50 MG TAB (JANUVIA) PO SCH (08:37)
[2023-03-22] MEDS: guaiFENesin ER 600 MG TAB PO SCH ×2 (08:37→21:33)
[2023-03-22] MEDS: GABAPENTIN 300 MG CAP PO SCH ×3 (08:37→21:33)
[2023-03-22] MEDS: INSULIN LISPRO (NovoLOG) PER UNIT SC SCH ×4 (08:38→21:50)
[2023-03-22] MEDS ORDERED: LEVEMIR (INSULIN DETEMIR) 1 UNITS/0.01ML SC ONE (10:30)
[2023-03-22] MEDS: SYMBICORT 160/4.5MCG INHALER 6GM INH SCH ×2 (10:41→19:04)
[2023-03-22] MEDS: EZETIMIBE 10MG TABLET (ZETIA) PO SCH (12:13)
[2023-03-22] MEDS: **hydrALAZINE HCL** 25 MG TAB PO SCH ×2 (14:29→21:34)
[2023-03-22 14:44] LABS: HEPATITIS B CORE ANTIBODY IGM NEGATIVE (NEGATIVE); HEPATITIS B SURFACE ANTIGEN NEGATIVE (NEGATIVE); HEPATITIS C VIRUS ABY INDEX 0.1 INDEX (<0.8)
[2023-03-22 16:08] LABS: BODY FLUID CULTURE Not indicated. (.); LEGIONELLA ANTIGEN URINE Negative (Negative); ORGANISM ID Not indicated. (.); SPECIMEN SOURCE Urine (.); URINE STREP PNEUMONIAE ANTIGEN Negative (Negative)
[2023-03-22] MEDS ORDERED: LEVEMIR (INSULIN DETEMIR) 1 UNITS/0.01ML SC SCH (21:00)
[2023-03-22] MEDS: ATORVASTATIN 20 MG TAB PO SCH (21:34)
[2023-03-22] MEDS: tiZANidine 4 MG TAB PO PRN (21:34)
[2023-03-23] VITALS (8 sets, daily range): BP systolic 102–140; BP diastolic 60–77; TEMP 96–97.6; O2SAT 96–98
[2023-03-23] MEDS ORDERED: SODIUM CHLORIDE 0.9% INJ 10 ML SYR IV PRN (01:55)
[2023-03-23] MEDS: AZTREONAM 2 GM in D5W MINI-BAG PLUS 100 ML IV SCH ×3 (02:00→17:36)
[2023-03-23] MEDS: **hydrALAZINE HCL** 25 MG TAB PO SCH ×3 (05:18→21:34)
[2023-03-23] MEDS: SODIUM CHLORIDE 0.9% INJ 10 ML SYR IV SCH ×3 (05:18→21:35)
[2023-03-23 05:41] LABS: HEMATOCRIT 29.2 % (36.0-47.0); HEMOGLOBIN 9.3 g/dl (12.0-15.5); MEAN CORPUSCULAR HEMOGLOBIN 28.8 pg (27.0-33.0); MEAN CORPUSCULAR HGB CONC 31.8 g/dl (32.0-36.5); MEAN CORPUSCULAR VOLUME 90.4 fl (80.0-96.0); PLATELET COUNT, AUTOMATED 239 10^3/uL (150-450); RED BLOOD COUNT 3.23 10^6/uL (4.00-5.40); WHITE BLOOD COUNT 14.1 10^3/uL (4.0-10.0)
[2023-03-23 06:56] LABS: ALBUMIN 2.3 G/DL (3.2-5.2); ALKALINE PHOSPHATASE 58 U/L (46-116); ALT/SGPT 29 U/L (7.0-40); AST/SGOT 42 U/L (<34); BILIRUBIN,TOTAL 0.3 MG/DL (0.3-1.2); BLOOD UREA NITROGEN 35 MG/DL (9-23); CALCIUM LEVEL 7.5 MG/DL (8.3-10.6); CARBON DIOXIDE LEVEL 33 MMOL/L (20-31); CHLORIDE LEVEL 106 MMOL/L (98-107); CPK CREATINE PHOSPHOKINASE 501 U/L (34-145); GLOMERULAR FILTRATION RATE > 60.0 (>45); GLUCOSE, FASTING 194 MG/DL (74-106); MAGNESIUM LEVEL 1.9 MG/DL (1.8-2.4); PHOSPHORUS LEVEL 2.8 MG/DL (2.4-5.1); POTASSIUM SERUM 3.4 MMOL/L (3.5-5.1); SODIUM LEVEL 144 MMOL/L (136-145); TOTAL PROTEIN 4.7 G/DL (5.7-8.2)
[2023-03-23] MEDS: PANTOPRAZOLE 40MG VIAL IV SCH (07:50)
[2023-03-23] MEDS: INSULIN LISPRO (NovoLOG) PER UNIT SC SCH ×4 (07:51→21:48)
[2023-03-23] MEDS: CLOPIDOGREL 75 MG TAB PO SCH (07:53)
[2023-03-23] MEDS: allopurinoL 300 MG TAB PO SCH (07:53)
[2023-03-23] MEDS: GABAPENTIN 300 MG CAP PO SCH ×3 (07:53→21:33)
[2023-03-23] MEDS: LEVEMIR (INSULIN DETEMIR) 1 UNITS/0.01ML SC SCH (07:53)
[2023-03-23] MEDS: guaiFENesin ER 600 MG TAB PO SCH ×2 (07:53→21:34)
[2023-03-23] MEDS: ASPIRIN 81MG CHEW TABLET PEG SCH (07:53)
[2023-03-23] MEDS: METOPROLOL TART 12.5 MG PER 1/2 TAB FT SCH (07:57)
[2023-03-23] MEDS: SYMBICORT 160/4.5MCG INHALER 6GM INH SCH ×2 (07:59→19:48)
[2023-03-23] MEDS: IPRATROPIUM 0.5MG/ALBUTEROL 2.5MG INH SOL UD 3ML (DUONEB) NEB SCH ×4 (07:59→19:48)
[2023-03-23] MEDS: SODIUM CHLORIDE 0.9% 3ML NEB SOLUTION FOR INHALATION INH SCH ×3 (08:00→19:49)
[2023-03-23] MEDS ORDERED: MAGNESIUM OXIDE 400MG TAB (MAG-OX) PO ONE (08:45)
[2023-03-23] MEDS ORDERED: PILL CUTTER 1 EACH XX PRN (08:55)
[2023-03-23] MEDS ORDERED: FUROSEMIDE 20 MG TAB PO SCH (09:00)
[2023-03-23] MEDS ORDERED: MIRALAX *UNIT DOSE* 17GM PACKET PO SCH (09:00)
[2023-03-23] MEDS ORDERED: K-PHOS ORIGINAL (POT.ACID PHOSPHATE) 500MG TAB PO ONE (10:00)
[2023-03-23] MEDS: ALPRAZolam 0.5 MG TAB PO PRN ×2 (10:12→21:48)
[2023-03-23] MEDS: NORCO, ANEXSIA 5/325MG TABLET (HYDROcodone/ACETAMINOPHEN) PO PRN ×2 (10:12→21:34)
[2023-03-23] MEDS: POTASSIUM CHLORIDE 10MEQ SR TABLET PO SCH ×2 (10:13→12:26)
[2023-03-23] MEDS: methylPREDNISolone 40MG 1ML VIAL IV SCH ×2 (10:13→21:33)
[2023-03-23] MEDS ORDERED: AMIODARONE HCL 150 MG in IV 1 EA IV STA (11:05)
[2023-03-23] MEDS ORDERED: MOM 30ML SUSPENSION UDC PO ONE (12:00)
[2023-03-23] MEDS: EZETIMIBE 10MG TABLET (ZETIA) PO SCH (12:16)
[2023-03-23] MEDS: DOCUSATE SODIUM 100MG CAPSULE PO SCH ×2 (12:17→21:34)
[2023-03-23] MEDS: HEPARIN DRIP 25,000 UNITS in IV 1 EA IV SCH (16:06)
[2023-03-23] MEDS ORDERED: METOPROLOL TART 25 MG TABLET FT SCH (21:00)
[2023-03-23] MEDS ORDERED: METOPROLOL TART 25 MG TABLET PO SCH (21:00)
[2023-03-23] MEDS: ATORVASTATIN 20 MG TAB PO SCH (21:33)
[2023-03-24] MEDS: SODIUM CHLORIDE 0.9% 3ML NEB SOLUTION FOR INHALATION INH SCH (02:00)
[2023-03-24] MEDS: AZTREONAM 2 GM in D5W MINI-BAG PLUS 100 ML IV SCH (02:28)
[2023-03-24 04:39] VITALS: BP 143/77; TEMP 96.9; O2SAT 97
[2023-03-24] MEDS: ALBUTEROL SULFATE 2.5MG/0.5ML INH NEB SOLN NEB PRN (05:19)
[2023-03-24] MEDS: SODIUM CHLORIDE 0.9% INJ 10 ML SYR IV SCH (06:08)
[2023-03-24 06:12] VITALS: BP 178/80
[2023-03-24] MEDS: **hydrALAZINE HCL** 25 MG TAB PO SCH (06:12)
[2023-03-24] MEDS ORDERED: LEVO1TAB40 PO (06:57)
[2023-03-24] MEDS ORDERED: PRED10TA2 PO (06:57)
[2023-03-24] MEDS ORDERED: amLODIPine 5 MG TAB PO SCH (09:00)
== END 2023-03-24 07:09 | disposition short-term general hospital (02) | DRG 871 ==
LOC: M ED 03:50 → M ED INP 07:52 → M ICU 08:53 → M MS4PR 03-22 23:14 → M PCU 03-23 17:58
PROVIDERS: ADMIT Internal Medicine; ATTEND Internal Medicine
PROC: 02HV33Z Insertion of Infusion Device into Superior Vena Cava, Percutaneous Approach (ICD-10-PCS; principal; 2023-03-18)
PROC: B246ZZZ Ultrasonography of Right and Left Heart (ICD-10-PCS; 2023-03-18)
PROC: 0BH17EZ Insertion of Endotracheal Airway into Trachea, Via Natural or Artificial Opening (ICD-10-PCS; 2023-03-18)
PROC: 5A1945Z Respiratory Ventilation, 24-96 Consecutive Hours (ICD-10-PCS; 2023-03-18)
DX: A41.9 Sepsis, unspecified organism (principal); J96.21 Acute and chronic respiratory failure with hypoxia; J96.22 Acute and chronic respiratory failure with hypercapnia; G93.41 Metabolic encephalopathy; R65.21 Severe sepsis with septic shock; I50.43 Acute on chronic combined systolic (congestive) and diastolic (congestive) heart failure; R57.0 Cardiogenic shock; I21.4 Non-ST elevation (NSTEMI) myocardial infarction; J69.0 Pneumonitis due to inhalation of food and vomit; J44.0 Chronic obstructive pulmonary disease with (acute) lower respiratory infection; E87.20 Acidosis, unspecified; N17.9 Acute kidney failure, unspecified; J44.1 Chronic obstructive pulmonary disease with (acute) exacerbation; E87.4 Mixed disorder of acid-base balance; I51.81 Takotsubo syndrome; I25.10 Atherosclerotic heart disease of native coronary artery without angina pectoris; I48.91 Unspecified atrial fibrillation; E11.65 Type 2 diabetes mellitus with hyperglycemia; D64.9 Anemia, unspecified; F41.9 Anxiety disorder, unspecified; M19.90 Unspecified osteoarthritis, unspecified site; J32.0 Chronic maxillary sinusitis; E11.42 Type 2 diabetes mellitus with diabetic polyneuropathy; R74.01 Elevation of levels of liver transaminase levels; E87.5 Hyperkalemia; G47.00 Insomnia, unspecified; E66.9 Obesity, unspecified; G47.33 Obstructive sleep apnea (adult) (pediatric); J20.9 Acute bronchitis, unspecified; M54.16 Radiculopathy, lumbar region; R94.5 Abnormal results of liver function studies; B97.89 Other viral agents as the cause of diseases classified elsewhere; E78.5 Hyperlipidemia, unspecified; I25.2 Old myocardial infarction; Z87.891 Personal history of nicotine dependence; Z90.79 Acquired absence of other genital organ(s); Z88.0 Allergy status to penicillin; Z88.2 Allergy status to sulfonamides; Z88.8 Allergy status to other drugs, medicaments and biological substances; Z95.5 Presence of coronary angioplasty implant and graft; Z79.82 Long term (current) use of aspirin; Z79.01 Long term (current) use of anticoagulants; Z99.81 Dependence on supplemental oxygen

== ENCOUNTER 2023-04-13 19:33 | Inpatient (IN) | payer MEDICARE, OTHER ==
[~2023-04-13] VITALS: Ht 165.1 cm; Wt 96.9 kg
[~2023-04-13 19:33] MED LIST changes: +ASPI-161 PO; -K-TA10TA2 PO; +LEVO1TAB40 PO; +POTA-165 PO
[2023-04-13 20:56] LABS: BASO # 0.1 10^3/uL (0.0-0.2); BASO % 0.9 % (0.0-1.0); EOS # 0.2 10^3/uL (0.0-0.5); EOS % 2.7 % (0.0-3.0); HEMATOCRIT 32.6 % (36.0-47.0); HEMOGLOBIN 9.9 g/dl (12.0-15.5); LYMPH # 1.7 10^3/uL (1.5-5.0); LYMPH % 28.2 % (24.0-44.0); MEAN CORPUSCULAR HEMOGLOBIN 28.7 pg (27.0-33.0); MEAN CORPUSCULAR HGB CONC 30.4 g/dl (32.0-36.5); MEAN CORPUSCULAR VOLUME 94.5 fl (80.0-96.0); MONO # 0.9 10^3/uL (0.0-0.8); MONO % 15.6 % (2.0-8.0); NEUTROPHILS # 3.1 10^3/uL (1.5-8.5); NEUTROPHILS % 52.1 % (36.0-66.0); PLATELET COUNT, AUTOMATED 437 10^3/uL (150-450); RED BLOOD COUNT 3.45 10^6/uL (4.00-5.40); WHITE BLOOD COUNT 5.9 10^3/uL (4.0-10.0)
[2023-04-13 21:04] LABS: ABG BASE EXCESS 7.4 (-2.0-2.0); ABG HCO3 34.4 MMOL/L (22.0-26.0); ABG O2 SATURATION 98.2 % (95.0-99.0); ABG PARTIAL PRESSURE O2 117.8 mmHg (75.0-100.0); ABG STANDARD HCO3 31.3 MMOL/L. (22.0-26.0); ABG TOTAL CO2 36.3 MMOL/L (23.0-31.0); ABG pH (ARTERIAL) 7.363 UNITS (7.350-7.450)
[2023-04-13 21:12] LABS: ABG PARTIAL PRESSURE CO2 61.8 mmHg (35.0-45.0)
[2023-04-13 21:22] LABS: CK-MB VALUE MASS 3.2 NG/ML (<3.6)
[2023-04-13 21:24] LABS: CPK CREATINE PHOSPHOKINASE 49 U/L (34-145); MB/CK RELATIVE INDEX 6.53 (< OR =4)
[2023-04-13 21:26] LABS: THYROXINE (T4) 8.2 UG/DL (4.5-10.9)
[2023-04-13 21:27] LABS: THYROID STIMULATING HORMONE 0.785 uIU/ML (0.55-4.78)
[2023-04-13 21:57] LABS: ALBUMIN 3.5 G/DL (3.2-5.2); ALKALINE PHOSPHATASE 78 U/L (46-116); ALT/SGPT 12 U/L (7.0-40); AST/SGOT 19 U/L (<34); BILIRUBIN,DIRECT < 0.1 MG/DL (<0.4); BILIRUBIN,TOTAL 0.2 MG/DL (0.3-1.2); BLOOD UREA NITROGEN 31 MG/DL (9-23); CALCIUM LEVEL 8.9 MG/DL (8.3-10.6); CHLORIDE LEVEL 99 MMOL/L (98-107); CREATININE FOR GFR 0.86 MG/DL (0.55-1.30); GLOMERULAR FILTRATION RATE > 60.0 (>45); GLUCOSE, FASTING 183 MG/DL (74-106); POTASSIUM SERUM 5.3 MMOL/L (3.5-5.1); SODIUM LEVEL 137 MMOL/L (136-145); TOTAL PROTEIN 6.3 G/DL (5.7-8.2)
[2023-04-13 22:04] LABS: CK-MB VALUE MASS 2.4 NG/ML (<3.6)
[2023-04-13 22:06] LABS: MB/CK RELATIVE INDEX 5.85 (< OR =4)
[2023-04-13] MEDS ORDERED: IPRATROPIUM 0.5MG/ALBUTEROL 2.5MG INH SOL UD 3ML (DUONEB) NEB ONE (22:10)
[2023-04-13] MEDS ORDERED: methylPREDNISolone 125MG 2ML VIAL IV ONE (22:10)
[2023-04-13 22:44] LABS: CARBON DIOXIDE LEVEL 31 MMOL/L (20-31)
[2023-04-13] MEDS ORDERED: GLUCAGON INJ 1MG VIAL SC PRN (23:35)
[2023-04-13] MEDS ORDERED: DEXTROSE 50% 50ML SYRINGE IV PRN (23:35)
[2023-04-13] MEDS ORDERED: ALBUTEROL SULFATE 2.5MG/0.5ML INH NEB SOLN NEB PRN (23:35)
[2023-04-13] MEDS ORDERED: GLUCOSE 4GM CHEW TABLET PO PRN (23:35)
[2023-04-13 23:42] LABS: ABG pH (ARTERIAL) 7.355 UNITS (7.350-7.450)
[2023-04-13] MEDS ORDERED: DOXY100T PO (23:42)
[2023-04-13] MEDS ORDERED: BUDE10.7 INH (23:42)
[2023-04-13 23:44] LABS: ABG BASE EXCESS 7.6 (-2.0-2.0); ABG HCO3 34.7 MMOL/L (22.0-26.0); ABG O2 SATURATION 98.5 % (95.0-99.0); ABG PARTIAL PRESSURE O2 136.3 mmHg (75.0-100.0); ABG STANDARD HCO3 31.4 MMOL/L. (22.0-26.0); ABG TOTAL CO2 36.7 MMOL/L (23.0-31.0)
[2023-04-13] MEDS ORDERED: NITR0.4S14 SL (23:45)
[2023-04-13] MEDS ORDERED: DRIS50003 PO (23:45)
[2023-04-13 23:48] LABS: ABG PARTIAL PRESSURE CO2 63.6 mmHg (35.0-45.0)
[2023-04-13] MEDS ORDERED: HOME MED LIST COMPLETE! XX SCH (23:50)
[2023-04-13] MEDS ORDERED: ISOVUE-370 76% 100ML VIAL As Ordered ONE (23:54)
[2023-04-14 00:48] VITALS: BP 165/70; TEMP 97.8; O2SAT 93
[2023-04-14] MEDS ORDERED: NS 500 ML IV ONE (01:15)
[2023-04-14] MEDS ORDERED: NITROGLYCERIN 0.4MG SUBL TABLET SL PRN (01:40)
[2023-04-14] MEDS ORDERED: ONDANSETRON 4MG 2ML VIAL IV PRN (01:40)
[2023-04-14] MEDS: ALPRAZolam 0.5 MG TAB PO PRN ×3 (01:51→20:17)
[2023-04-14] MEDS: GABAPENTIN 300 MG CAP PO SCH ×4 (01:51→20:17)
[2023-04-14] MEDS: IPRATROPIUM 0.5MG/ALBUTEROL 2.5MG INH SOL UD 3ML (DUONEB) NEB SCH ×4 (02:10→19:33)
[2023-04-14 02:23] LABS: APPEARANCE, URINE CLEAR (CLEAR); BACTERIA, URINE AUTO NEGATIVE (NEGATIVE); BILIRUBIN, URINE AUTO NEGATIVE (NEGATIVE); BLOOD, URINE BLOOD NEGATIVE (NEGATIVE); COLOR, URINE YELLOW (YELLOW); GLUCOSE, URINE (UA) AUTO 2+ mg/dL (NEGATIVE); KETONE, URINE AUTO NEGATIVE (NEGATIVE); LEUKOCYTE ESTERASE, URINE AUTO 2+ (NEGATIVE); NITRITE, URINE AUTO NEGATIVE (NEGATIVE); PROTEIN, URINE AUTO NEGATIVE (NEGATIVE); RBC, URINE AUTO 2 /HPF (0-3); SPECIFIC GRAVITY URINE AUTO 1.038 (1.002-1.035); SQUAMOUS EPITHELIAL CELL UR AU 2 /HPF (0-6); UROBILINOGEN, URINE AUTO 0.2 mg/dL (0.0-2.0); WBC, URINE AUTO 29 /HPF (0-3)
[2023-04-14 03:40] VITALS: BP 126/60; TEMP 96.8; O2SAT 93
[2023-04-14] MEDS: HEPARIN SOD (PORCINE) 5000UNITS/ML 1ML VIAL/SYRINGE SC SCH ×3 (05:20→21:35)
[2023-04-14] MEDS ORDERED: methylPREDNISolone 40MG 1ML VIAL IV SCH (06:00)
[2023-04-14 06:15] LABS: ABG HCO3 29.3 MMOL/L (22.0-26.0); ABG O2 SATURATION 93.5 % (95.0-99.0); ABG PARTIAL PRESSURE CO2 53.4 mmHg (35.0-45.0); ABG PARTIAL PRESSURE O2 69.2 mmHg (75.0-100.0); ABG TOTAL CO2 30.9 MMOL/L (23.0-31.0); ABG pH (ARTERIAL) 7.357 UNITS (7.350-7.450)
[2023-04-14 06:53] LABS: ALBUMIN 3.2 G/DL (3.2-5.2); ALKALINE PHOSPHATASE 73 U/L (46-116); ALT/SGPT 20 U/L (7.0-40); AST/SGOT 11 U/L (<34); BILIRUBIN,TOTAL 0.2 MG/DL (0.3-1.2); BLOOD UREA NITROGEN 31 MG/DL (9-23); CALCIUM LEVEL 9.2 MG/DL (8.3-10.6); CARBON DIOXIDE LEVEL 30 MMOL/L (20-31); CHLORIDE LEVEL 100 MMOL/L (98-107); CREATININE FOR GFR 0.66 MG/DL (0.55-1.30); GLOMERULAR FILTRATION RATE > 60.0 (>45); GLUCOSE, FASTING 289 MG/DL (74-106); MAGNESIUM LEVEL 1.7 MG/DL (1.8-2.4); SODIUM LEVEL 136 MMOL/L (136-145); TOTAL PROTEIN 6.3 G/DL (5.7-8.2)
[2023-04-14] MEDS ORDERED: NS 1,000 ML IV SCH (07:20)
[2023-04-14 07:59] VITALS: BP 124/72; TEMP 96.1; O2SAT 94
[2023-04-14] MEDS: INSULIN LISPRO (NovoLOG) PER UNIT SC SCH ×4 (08:35→20:16)
[2023-04-14] MEDS: CLOPIDOGREL 75 MG TAB PO SCH (08:36)
[2023-04-14] MEDS: METOPROLOL TART 12.5 MG PER 1/2 TAB PO SCH ×2 (08:36→20:16)
[2023-04-14] MEDS: lisinopriL 5 MG TAB PO SCH (08:37)
[2023-04-14] MEDS: PANTOPRAZOLE 40MG TAB (PROTONIX) PO SCH ×2 (08:37→20:16)
[2023-04-14] MEDS: allopurinoL 300 MG TAB PO SCH (08:37)
[2023-04-14] MEDS: SITagliptin 50 MG TAB (JANUVIA) PO SCH (08:37)
[2023-04-14] MEDS: NORCO, ANEXSIA 5/325MG TABLET (HYDROcodone/ACETAMINOPHEN) PO PRN ×2 (08:42→17:09)
[2023-04-14] MEDS: EZETIMIBE 10MG TABLET (ZETIA) PO SCH (08:42)
[2023-04-14] MEDS ORDERED: SITagliptin 50 MG TAB (JANUVIA) PO SCH (09:00)
[2023-04-14] MEDS ORDERED: FUROSEMIDE 20 MG TAB PO SCH (09:00)
[2023-04-14 11:47] VITALS: BP 142/62; TEMP 98.6; O2SAT 94
[2023-04-14] MEDS: SYMBICORT 160/4.5MCG INHALER 6GM INH SCH ×2 (12:23→19:33)
[2023-04-14] MEDS: TIOTROPIUM INHALER/CAPSULE (SPIRIVA) INH SCH (12:23)
[2023-04-14] MEDS: ACETAMINOPHEN TAB 650MG DOSE (2X325MG) PO PRN (13:04)
[2023-04-14] MEDS: ATORVASTATIN 20 MG TAB PO SCH (13:04)
[2023-04-14] MEDS: cefTRIAXone SOD 1 GM in D5W MINI-BAG PLUS 50 ML IV SCH (13:04)
[2023-04-14] MEDS: LEVEMIR (INSULIN DETEMIR) 1 UNITS/0.01ML SC SCH (14:12)
[2023-04-14 16:00] VITALS: BP 140/62; TEMP 97.4; O2SAT 95
[2023-04-14] MEDS: methylPREDNISolone 40MG 1ML VIAL IV SCH (17:09)
[2023-04-14 20:03] VITALS: BP 123/57; TEMP 97.8; O2SAT 94
[2023-04-14] MEDS ORDERED: MAG SULF 1GM/100ML (MAG RUN) 1 GM in IV 1 EA IV ONE (22:00)
[2023-04-15 00:02] VITALS: BP 116/58; TEMP 96.2; O2SAT 95
[2023-04-15] MEDS: IPRATROPIUM 0.5MG/ALBUTEROL 2.5MG INH SOL UD 3ML (DUONEB) NEB SCH ×4 (00:46→19:54)
[2023-04-15] MEDS: NORCO, ANEXSIA 5/325MG TABLET (HYDROcodone/ACETAMINOPHEN) PO PRN ×3 (04:23→17:10)
[2023-04-15 04:31] VITALS: BP 168/81; TEMP 96.5; O2SAT 97
[2023-04-15] MEDS: methylPREDNISolone 40MG 1ML VIAL IV SCH (05:05)
[2023-04-15] MEDS: HEPARIN SOD (PORCINE) 5000UNITS/ML 1ML VIAL/SYRINGE SC SCH ×3 (05:05→20:41)
[2023-04-15] MEDS: TIOTROPIUM INHALER/CAPSULE (SPIRIVA) INH SCH (07:07)
[2023-04-15] MEDS: SYMBICORT 160/4.5MCG INHALER 6GM INH SCH ×2 (07:08→19:54)
[2023-04-15 07:32] LABS: HEMATOCRIT 30.1 % (36.0-47.0); HEMOGLOBIN 9.1 g/dl (12.0-15.5); MEAN CORPUSCULAR HEMOGLOBIN 28.2 pg (27.0-33.0); MEAN CORPUSCULAR HGB CONC 30.2 g/dl (32.0-36.5); MEAN CORPUSCULAR VOLUME 93.2 fl (80.0-96.0); PLATELET COUNT, AUTOMATED 376 10^3/uL (150-450); RED BLOOD COUNT 3.23 10^6/uL (4.00-5.40)
[2023-04-15 07:49] LABS: ALBUMIN 3.3 G/DL (3.2-5.2); ALKALINE PHOSPHATASE 75 U/L (46-116); ALT/SGPT 17 U/L (7.0-40); AST/SGOT 9 U/L (<34); BILIRUBIN,TOTAL 0.2 MG/DL (0.3-1.2); BLOOD UREA NITROGEN 25 MG/DL (9-23); CALCIUM LEVEL 10.2 MG/DL (8.3-10.6); CARBON DIOXIDE LEVEL 30 MMOL/L (20-31); CHLORIDE LEVEL 98 MMOL/L (98-107); CREATININE FOR GFR 0.56 MG/DL (0.55-1.30); GLOMERULAR FILTRATION RATE > 60.0 (>45); GLUCOSE, FASTING 255 MG/DL (74-106); SODIUM LEVEL 137 MMOL/L (136-145); TOTAL PROTEIN 6.3 G/DL (5.7-8.2)
[2023-04-15 08:19] VITALS: BP 131/63; TEMP 97.3; O2SAT 95
[2023-04-15] MEDS: METOPROLOL TART 12.5 MG PER 1/2 TAB PO SCH ×2 (08:32→20:46)
[2023-04-15] MEDS: ALPRAZolam 0.5 MG TAB PO PRN ×3 (08:33→20:49)
[2023-04-15] MEDS: ACETAMINOPHEN TAB 650MG DOSE (2X325MG) PO PRN ×2 (08:33→16:35)
[2023-04-15] MEDS: CLOPIDOGREL 75 MG TAB PO SCH (08:33)
[2023-04-15] MEDS: lisinopriL 5 MG TAB PO SCH (08:33)
[2023-04-15] MEDS: PANTOPRAZOLE 40MG TAB (PROTONIX) PO SCH ×2 (08:33→20:45)
[2023-04-15] MEDS: SITagliptin 50 MG TAB (JANUVIA) PO SCH (08:33)
[2023-04-15] MEDS: GABAPENTIN 300 MG CAP PO SCH ×3 (08:33→20:45)
[2023-04-15] MEDS: LEVEMIR (INSULIN DETEMIR) 1 UNITS/0.01ML SC SCH (08:34)
[2023-04-15] MEDS: allopurinoL 300 MG TAB PO SCH (08:34)
[2023-04-15] MEDS: EZETIMIBE 10MG TABLET (ZETIA) PO SCH (08:34)
[2023-04-15] MEDS: INSULIN LISPRO (NovoLOG) PER UNIT SC SCH ×4 (08:34→20:45)
[2023-04-15] MEDS: FUROSEMIDE 20 MG TAB PO SCH (11:55)
[2023-04-15 12:00] VITALS: BP 154/82; TEMP 97; O2SAT 100
[2023-04-15] MEDS: cefTRIAXone SOD 1 GM in D5W MINI-BAG PLUS 50 ML IV SCH (13:18)
[2023-04-15] MEDS: ATORVASTATIN 20 MG TAB PO SCH (13:18)
[2023-04-15] MEDS ORDERED: VANCOMYCIN HCL 1,000 MG, VIAL MATE ADAPTER 1 EACH in D5W 250 ML IV ONE (14:00)
[2023-04-15] MEDS ORDERED: VANCOMYCIN HCL 500 MG in D5W MINI-BAG PLUS 100 ML IV ONE (15:00)
[2023-04-15 20:06] VITALS: BP 135/64; TEMP 97.7; O2SAT 99
[2023-04-15] MEDS: VANCOMYCIN HCL 750 MG, VIAL MATE ADAPTER 1 EACH in D5W 250 ML IV SCH ×2 (20:42→23:05)
[2023-04-15] MEDS ORDERED: VANCOMYCIN HCL 500 MG in D5W MINI-BAG PLUS 100 ML IV SCH (22:00)
[2023-04-16] MEDS: IPRATROPIUM 0.5MG/ALBUTEROL 2.5MG INH SOL UD 3ML (DUONEB) NEB SCH ×4 (01:28→19:12)
[2023-04-16] MEDS: HEPARIN SOD (PORCINE) 5000UNITS/ML 1ML VIAL/SYRINGE SC SCH ×3 (05:40→21:56)
[2023-04-16] MEDS: ALPRAZolam 0.5 MG TAB PO PRN ×3 (05:41→21:57)
[2023-04-16 05:50] VITALS: BP 168/90; TEMP 97.9; O2SAT 99
[2023-04-16] MEDS: INSULIN LISPRO (NovoLOG) PER UNIT SC SCH ×4 (07:30→21:57)
[2023-04-16 08:06] LABS: HEMATOCRIT 31.2 % (36.0-47.0); HEMOGLOBIN 9.3 g/dl (12.0-15.5); MEAN CORPUSCULAR HEMOGLOBIN 27.8 pg (27.0-33.0); MEAN CORPUSCULAR HGB CONC 29.8 g/dl (32.0-36.5); MEAN CORPUSCULAR VOLUME 93.1 fl (80.0-96.0); PLATELET COUNT, AUTOMATED 344 10^3/uL (150-450); RED BLOOD COUNT 3.35 10^6/uL (4.00-5.40); WHITE BLOOD COUNT 10.2 10^3/uL (4.0-10.0)
[2023-04-16] MEDS: TIOTROPIUM INHALER/CAPSULE (SPIRIVA) INH SCH (08:09)
[2023-04-16] MEDS: SYMBICORT 160/4.5MCG INHALER 6GM INH SCH ×2 (08:09→19:12)
[2023-04-16 08:29] LABS: VANCOMYCIN LEVEL TROUGH 16.1 UG/ML (10.0-20.0)
[2023-04-16 08:31] LABS: ALKALINE PHOSPHATASE 70 U/L (46-116); ALT/SGPT 16 U/L (7.0-40); AST/SGOT 10 U/L (<34); BILIRUBIN,TOTAL 0.2 MG/DL (0.3-1.2); BLOOD UREA NITROGEN 24 MG/DL (9-23); CALCIUM LEVEL 9.3 MG/DL (8.3-10.6); CARBON DIOXIDE LEVEL 34 MMOL/L (20-31); CHLORIDE LEVEL 102 MMOL/L (98-107); CREATININE FOR GFR 0.59 MG/DL (0.55-1.30); GLOMERULAR FILTRATION RATE > 60.0 (>45); GLUCOSE, FASTING 141 MG/DL (74-106); POTASSIUM SERUM 4.1 MMOL/L (3.5-5.1); SODIUM LEVEL 141 MMOL/L (136-145); TOTAL PROTEIN 5.8 G/DL (5.7-8.2)
[2023-04-16] MEDS ORDERED: predniSONE 20 MG TAB PO SCH (09:00)
[2023-04-16] MEDS: LEVEMIR (INSULIN DETEMIR) 1 UNITS/0.01ML SC SCH (10:24)
[2023-04-16] MEDS: CLOPIDOGREL 75 MG TAB PO SCH (10:25)
[2023-04-16] MEDS: SITagliptin 50 MG TAB (JANUVIA) PO SCH (10:26)
[2023-04-16] MEDS: FUROSEMIDE 20 MG TAB PO SCH (10:26)
[2023-04-16] MEDS: NORCO, ANEXSIA 5/325MG TABLET (HYDROcodone/ACETAMINOPHEN) PO PRN ×2 (10:26→15:24)
[2023-04-16] MEDS: GABAPENTIN 300 MG CAP PO SCH ×3 (10:27→21:58)
[2023-04-16] MEDS: allopurinoL 300 MG TAB PO SCH (10:27)
[2023-04-16] MEDS: EZETIMIBE 10MG TABLET (ZETIA) PO SCH (10:27)
[2023-04-16] MEDS: lisinopriL 5 MG TAB PO SCH (10:27)
[2023-04-16] MEDS: METOPROLOL TART 12.5 MG PER 1/2 TAB PO SCH ×2 (10:28→21:58)
[2023-04-16] MEDS: PANTOPRAZOLE 40MG TAB (PROTONIX) PO SCH ×2 (10:28→21:58)
[2023-04-16] MEDS: VANCOMYCIN HCL 500 MG in D5W MINI-BAG PLUS 100 ML IV SCH ×2 (10:29→23:26)
[2023-04-16] MEDS: VANCOMYCIN HCL 750 MG, VIAL MATE ADAPTER 1 EACH in D5W 250 ML IV SCH ×2 (10:29→21:58)
[2023-04-16] MEDS: ATORVASTATIN 20 MG TAB PO SCH (13:05)
[2023-04-16] MEDS: cefTRIAXone SOD 1 GM in D5W MINI-BAG PLUS 50 ML IV SCH (13:06)
[2023-04-16 15:00] VITALS: BP 122/63; TEMP 97.7; O2SAT 95
[2023-04-16 21:20] VITALS: BP 175/100; TEMP 96; O2SAT 97
[2023-04-16 21:36] VITALS: BP 174/94
[2023-04-17] MEDS: IPRATROPIUM 0.5MG/ALBUTEROL 2.5MG INH SOL UD 3ML (DUONEB) NEB SCH ×2 (01:28→08:27)
[2023-04-17] MEDS: NORCO, ANEXSIA 5/325MG TABLET (HYDROcodone/ACETAMINOPHEN) PO PRN ×2 (04:20→12:38)
[2023-04-17] MEDS: HEPARIN SOD (PORCINE) 5000UNITS/ML 1ML VIAL/SYRINGE SC SCH ×2 (05:36→13:45)
[2023-04-17 06:01] VITALS: BP 177/88; TEMP 97; O2SAT 98
[2023-04-17 06:23] LABS: HEMATOCRIT 30.5 % (36.0-47.0); HEMOGLOBIN 9.5 g/dl (12.0-15.5); MEAN CORPUSCULAR HEMOGLOBIN 28.7 pg (27.0-33.0); MEAN CORPUSCULAR HGB CONC 31.1 g/dl (32.0-36.5); MEAN CORPUSCULAR VOLUME 92.1 fl (80.0-96.0); PLATELET COUNT, AUTOMATED 316 10^3/uL (150-450); RED BLOOD COUNT 3.31 10^6/uL (4.00-5.40); WHITE BLOOD COUNT 8.2 10^3/uL (4.0-10.0)
[2023-04-17 06:46] LABS: ALBUMIN 3.1 G/DL (3.2-5.2); ALKALINE PHOSPHATASE 73 U/L (46-116); ALT/SGPT 18 U/L (7.0-40); AST/SGOT 10 U/L (<34); BILIRUBIN,TOTAL 0.2 MG/DL (0.3-1.2); BLOOD UREA NITROGEN 21 MG/DL (9-23); CALCIUM LEVEL 9.3 MG/DL (8.3-10.6); CARBON DIOXIDE LEVEL 35 MMOL/L (20-31); CHLORIDE LEVEL 99 MMOL/L (98-107); CREATININE FOR GFR 0.59 MG/DL (0.55-1.30); GLOMERULAR FILTRATION RATE > 60.0 (>45); GLUCOSE, FASTING 127 MG/DL (74-106); SODIUM LEVEL 140 MMOL/L (136-145)
[2023-04-17] MEDS: SYMBICORT 160/4.5MCG INHALER 6GM INH SCH (08:27)
[2023-04-17] MEDS: TIOTROPIUM INHALER/CAPSULE (SPIRIVA) INH SCH (08:27)
[2023-04-17] MEDS: LEVEMIR (INSULIN DETEMIR) 1 UNITS/0.01ML SC SCH (08:52)
[2023-04-17] MEDS: INSULIN LISPRO (NovoLOG) PER UNIT SC SCH ×2 (08:53→12:37)
[2023-04-17] MEDS: ALPRAZolam 0.5 MG TAB PO PRN (08:54)
[2023-04-17] MEDS: FUROSEMIDE 20 MG TAB PO SCH (08:54)
[2023-04-17 08:58] VITALS: BP 162/90
[2023-04-17] MEDS: GABAPENTIN 300 MG CAP PO SCH (08:58)
[2023-04-17] MEDS: METOPROLOL TART 12.5 MG PER 1/2 TAB PO SCH (08:58)
[2023-04-17] MEDS: allopurinoL 300 MG TAB PO SCH (08:58)
[2023-04-17] MEDS: CLOPIDOGREL 75 MG TAB PO SCH (08:58)
[2023-04-17] MEDS: PANTOPRAZOLE 40MG TAB (PROTONIX) PO SCH (08:59)
[2023-04-17] MEDS: EZETIMIBE 10MG TABLET (ZETIA) PO SCH (08:59)
[2023-04-17] MEDS: SITagliptin 50 MG TAB (JANUVIA) PO SCH (08:59)
[2023-04-17] MEDS ORDERED: predniSONE 20 MG TAB PO SCH (09:00)
[2023-04-17 11:32] VITALS: BP 184/89
[2023-04-17] MEDS ORDERED: METOPROLOL TART 12.5 MG PER 1/2 TAB PO ONE (12:40)
[2023-04-17] MEDS: ATORVASTATIN 20 MG TAB PO SCH (13:01)
[2023-04-17 13:10] VITALS: BP 140/80
[2023-04-17] MEDS ORDERED: LISI10TA22 PO (13:23)
== END 2023-04-17 15:05 | disposition home or self-care (01) | DRG 190 ==
LOC: M ED 19:33 → M ED INP 23:34 → M PCU 04-14 00:42 → M MS5PR 04-15 16:55
PROVIDERS: ADMIT Internal Medicine; ATTEND Internal Medicine
DX: J44.1 Chronic obstructive pulmonary disease with (acute) exacerbation (principal); I21.4 Non-ST elevation (NSTEMI) myocardial infarction; J96.21 Acute and chronic respiratory failure with hypoxia; J96.22 Acute and chronic respiratory failure with hypercapnia; E87.20 Acidosis, unspecified; I50.22 Chronic systolic (congestive) heart failure; N39.0 Urinary tract infection, site not specified; F11.20 Opioid dependence, uncomplicated; I11.0 Hypertensive heart disease with heart failure; E11.9 Type 2 diabetes mellitus without complications; K21.9 Gastro-esophageal reflux disease without esophagitis; Z79.82 Long term (current) use of aspirin; R53.83 Other fatigue; K57.90 Diverticulosis of intestine, part unspecified, without perforation or abscess without bleeding; G47.33 Obstructive sleep apnea (adult) (pediatric); R53.1 Weakness; F41.9 Anxiety disorder, unspecified; Z88.0 Allergy status to penicillin; Z88.2 Allergy status to sulfonamides; Z88.8 Allergy status to other drugs, medicaments and biological substances; Z79.899 Other long term (current) drug therapy; Z99.81 Dependence on supplemental oxygen; F32.A Depression, unspecified

== ENCOUNTER → 2023-04-27 | Outpatient (CLI) | payer MEDICARE, OTHER ==
[~2023-04-27] MED LIST changes: +DOXY100T PO; +DRIS50003 PO; +NITR0.4S14 SL
[2023-04-27 18:35] LABS: HEMATOCRIT 35.1 % (36.0-47.0); HEMOGLOBIN 10.9 g/dl (12.0-15.5); MEAN CORPUSCULAR HEMOGLOBIN 29.2 pg (27.0-33.0); MEAN CORPUSCULAR HGB CONC 31.1 g/dl (32.0-36.5); MEAN CORPUSCULAR VOLUME 94.1 fl (80.0-96.0); PLATELET COUNT, AUTOMATED 312 10^3/uL (150-450); RED BLOOD COUNT 3.73 10^6/uL (4.00-5.40)
[2023-04-27 18:43] LABS: HEMOGLOBIN A1c 7.2 % (4.0-6.0)
[2023-04-27 19:00] LABS: ALBUMIN 3.7 G/DL (3.2-5.2); ALKALINE PHOSPHATASE 90 U/L (46-116); ALT/SGPT 23 U/L (7.0-40); AST/SGOT < 8 U/L (<34); BILIRUBIN,TOTAL 0.2 MG/DL (0.3-1.2); BLOOD UREA NITROGEN 37 MG/DL (9-23); CARBON DIOXIDE LEVEL 38 MMOL/L (20-31); CHLORIDE LEVEL 96 MMOL/L (98-107); CREATININE FOR GFR 0.72 MG/DL (0.55-1.30); GLOMERULAR FILTRATION RATE > 60.0 (>45); GLUCOSE, FASTING 145 MG/DL (74-106); SODIUM LEVEL 137 MMOL/L (136-145); TOTAL PROTEIN 6.8 G/DL (5.7-8.2)
[2023-04-27 19:01] LABS: THYROID STIMULATING HORMONE 0.713 uIU/ML (0.55-4.78)
[2023-04-27 19:02] LABS: TOTAL 25(OH) VITAMIN D 97.8 NG/ML (20.0-100.0)
== END ==
LOC: M LAB 17:51
PROVIDERS: ATTEND Family Medicine
DX: D64.9 Anemia, unspecified (principal); E11.9 Type 2 diabetes mellitus without complications; E03.9 Hypothyroidism, unspecified

== ENCOUNTER 2023-06-08 17:50 | Emergency (ER) | payer MEDICARE, OTHER ==
[~2023-06-08] VITALS: Ht 162.6 cm; Wt 85.9 kg
[2023-06-08 17:53] VITALS: BP 145/86; TEMP 97.8; O2SAT 97
== END 2023-06-08 22:10 | disposition left against medical advice (07) ==
LOC: M ED 17:50
DX: Z53.21 Procedure and treatment not carried out due to patient leaving prior to being seen by health care provider (principal)

== ENCOUNTER 2023-07-24 14:01 | Emergency (ER) | payer MEDICARE, OTHER ==
[~2023-07-24] VITALS: Ht 165.1 cm; Wt 90.0 kg
[2023-07-24] MEDS ORDERED: LABETALOL 100MG/20ML VIAL IV STA (14:26)
[2023-07-24] MEDS ORDERED: ASPIRIN 81MG CHEW TABLET PO ONE (14:35)
[2023-07-24] MEDS ORDERED: NITROGLYCERIN 0.4MG SUBL TABLET SL PRN (14:35)
[2023-07-24] MEDS ORDERED: IPRATROPIUM 0.5MG/ALBUTEROL 2.5MG INH SOL UD 3ML (DUONEB) NEB ONE (14:40)
[2023-07-24 15:03] VITALS: BP 133/73
[2023-07-24 15:11] LABS: BASO # 0.1 10^3/uL (0.0-0.2); BASO % 0.8 % (0.0-1.0); EOS # 0.1 10^3/uL (0.0-0.5); EOS % 1.1 % (0.0-3.0); HEMATOCRIT 37.7 % (36.0-47.0); HEMOGLOBIN 11.9 g/dl (12.0-15.5); LYMPH # 0.9 10^3/uL (1.5-5.0); MEAN CORPUSCULAR HGB CONC 31.6 g/dl (32.0-36.5); MEAN CORPUSCULAR VOLUME 88.7 fl (80.0-96.0); MONO # 1.2 10^3/uL (0.0-0.8); MONO % 15.7 % (2.0-8.0); NEUTROPHILS # 5.5 10^3/uL (1.5-8.5); NEUTROPHILS % 70.8 % (36.0-66.0); PLATELET COUNT, AUTOMATED 246 10^3/uL (150-450); RED BLOOD COUNT 4.25 10^6/uL (4.00-5.40); WHITE BLOOD COUNT 7.8 10^3/uL (4.0-10.0)
[2023-07-24 15:26] LABS: INR 0.98; PROTHROMBIN TIME 12.7 SECONDS (12.5-14.5)
[2023-07-24 15:27] LABS: PARTIAL THROMBOPLASTIN TIME 26.9 SECONDS (24.8-34.2)
[2023-07-24 15:28] LABS: LIPASE 43 U/L (12-53)
[2023-07-24 15:31] LABS: ALBUMIN 3.5 G/DL (3.2-5.2); ALKALINE PHOSPHATASE 113 U/L (46-116); ALT/SGPT 27 U/L (7.0-40); AST/SGOT 17 U/L (<34); BILIRUBIN,DIRECT < 0.1 MG/DL (<0.4); BILIRUBIN,TOTAL 0.2 MG/DL (0.3-1.2); BLOOD UREA NITROGEN 39 MG/DL (9-23); CALCIUM LEVEL 9.5 MG/DL (8.3-10.6); CARBON DIOXIDE LEVEL 32 MMOL/L (20-31); CHLORIDE LEVEL 100 MMOL/L (98-107); CK-MB VALUE MASS 1.7 NG/ML (<3.6); GLOMERULAR FILTRATION RATE > 60.0 (>45); GLUCOSE, FASTING 115 MG/DL (74-106); POTASSIUM SERUM 5.3 MMOL/L (3.5-5.1); SODIUM LEVEL 138 MMOL/L (136-145); TOTAL PROTEIN 6.7 G/DL (5.7-8.2)
[2023-07-24 15:35] LABS: CPK CREATINE PHOSPHOKINASE 55 U/L (34-145); FREE T4 1.13 NG/DL (0.89-1.76); MB/CK RELATIVE INDEX 3.09 (< OR =4); THYROID STIMULATING HORMONE 0.776 uIU/ML (0.55-4.78)
[2023-07-24 15:45] LABS: RSV AMPLIFICATION NEGATIVE (NEGATIVE)
[2023-07-24] MEDS ORDERED: ISOVUE-370 76% 100ML VIAL As Ordered ONE (15:49)
[2023-07-24 16:18] LABS: CK-MB VALUE MASS 1.3 NG/ML (<3.6)
[2023-07-24 16:20] LABS: CPK CREATINE PHOSPHOKINASE 53 U/L (34-145); MB/CK RELATIVE INDEX 2.45 (< OR =4)
[2023-07-24] MEDS ORDERED: SOD POLYSTYRENE SULFONATE SUSP 15GM 60ML UD PO ONE (16:25)
[2023-07-24 19:09] VITALS: BP 100/54; TEMP 98.4; O2SAT 96
== END 2023-07-24 19:25 | disposition home or self-care (01) ==
LOC: M ED 14:01
DX: R07.9 Chest pain, unspecified (principal); M79.606 Pain in leg, unspecified; E87.5 Hyperkalemia; I25.10 Atherosclerotic heart disease of native coronary artery without angina pectoris; I50.20 Unspecified systolic (congestive) heart failure; E11.9 Type 2 diabetes mellitus without complications; G47.33 Obstructive sleep apnea (adult) (pediatric); K21.9 Gastro-esophageal reflux disease without esophagitis; F41.9 Anxiety disorder, unspecified; J44.9 Chronic obstructive pulmonary disease, unspecified; F32.A Depression, unspecified; Z87.891 Personal history of nicotine dependence; Z88.0 Allergy status to penicillin; Z88.2 Allergy status to sulfonamides; Z88.8 Allergy status to other drugs, medicaments and biological substances; Z79.899 Other long term (current) drug therapy; Z79.51 Long term (current) use of inhaled steroids; Z79.84 Long term (current) use of oral hypoglycemic drugs
CPT/HCPCS: 36415; 70450; 71045; 71275; 80048; 80076; 82550; 82553; 83690; 83880; 84439; 84443; 84484; 85025; 85610; 85730; 87631; 93005; 93041; 93970; 94640; 94760; 99285; Q9967

== ENCOUNTER 2023-11-14 12:47 | Emergency (ER) | payer MEDICARE, OTHER ==
[~2023-11-14] VITALS: Ht 165.1 cm; Wt 88.6 kg
[~2023-11-14 12:47] MED LIST changes: +CEFD1CAP9 PO; -CEFD300C41 PO; -FLUT50SP17; +FLUTISP; +PEN-308 SC; -PEN1MIS21 SC
[2023-11-14 12:50] VITALS: BP 121/67; TEMP 97.3; O2SAT 95
[2023-11-14] MEDS ORDERED: CIPROFLOXACIN 500MG TABLET PO ONE (20:25)
[2023-11-14] MEDS ORDERED: CIPR-249 PO (20:27)
[2023-11-17] MEDS ORDERED: NITR1CAP11 PO (11:27)
== END 2023-11-14 20:51 | disposition home or self-care (01) ==
LOC: M ED 12:47
DX: N39.0 Urinary tract infection, site not specified (principal); M54.50 Low back pain, unspecified; J44.9 Chronic obstructive pulmonary disease, unspecified; Z87.891 Personal history of nicotine dependence; Z88.0 Allergy status to penicillin; Z88.2 Allergy status to sulfonamides; Z79.52 Long term (current) use of systemic steroids; Z79.891 Long term (current) use of opiate analgesic; Z79.811 Long term (current) use of aromatase inhibitors; Z79.4 Long term (current) use of insulin; Z79.899 Other long term (current) drug therapy

== ENCOUNTER 2023-12-01 18:40 | Emergency (ER) | payer MEDICARE, OTHER ==
[~2023-12-01] VITALS: Ht 165.1 cm; Wt 86.4 kg
[~2023-12-01 18:40] MED LIST changes: -ASPI-161 PO; +ASPI-615 PO; +NITR1CAP11 PO
[2023-12-01 18:44] VITALS: BP 185/74; TEMP 98.1; O2SAT 94
[2023-12-01] MEDS: NS 1,000 ML IV SCH (20:38)
[2023-12-01 20:50] LABS: BASO # 0.1 10^3/uL (0.0-0.2); BASO % 0.8 % (0.0-1.0); EOS # 0.1 10^3/uL (0.0-0.5); EOS % 1.3 % (0.0-3.0); HEMATOCRIT 37.6 % (36.0-47.0); HEMOGLOBIN 11.9 g/dl (12.0-15.5); LYMPH # 1.9 10^3/uL (1.5-5.0); LYMPH % 25.4 % (24.0-44.0); MEAN CORPUSCULAR HEMOGLOBIN 30.1 pg (27.0-33.0); MEAN CORPUSCULAR HGB CONC 31.6 g/dl (32.0-36.5); MEAN CORPUSCULAR VOLUME 94.9 fl (80.0-96.0); MONO # 1.1 10^3/uL (0.0-0.8); MONO % 14.8 % (2.0-8.0); NEUTROPHILS # 4.3 10^3/uL (1.5-8.5); NEUTROPHILS % 56.9 % (36.0-66.0); PLATELET COUNT, AUTOMATED 271 10^3/uL (150-450); RED BLOOD COUNT 3.96 10^6/uL (4.00-5.40); WHITE BLOOD COUNT 7.5 10^3/uL (4.0-10.0)
[2023-12-01 21:04] LABS: INR 0.93; PARTIAL THROMBOPLASTIN TIME 27.2 SECONDS (24.8-34.2); PROTHROMBIN TIME 12.2 SECONDS (12.5-14.5)
[2023-12-01 21:18] LABS: CK-MB VALUE MASS 1.8 NG/ML (<3.6)
[2023-12-01 21:19] LABS: LIPASE 64 U/L (12-53)
[2023-12-01 21:22] LABS: FREE T4 1.09 NG/DL (0.89-1.76)
[2023-12-01 21:23] LABS: ALBUMIN 3.6 G/DL (3.2-5.2); ALKALINE PHOSPHATASE 126 U/L (46-116); ALT/SGPT 25 U/L (7.0-40); AST/SGOT 16 U/L (<34); BILIRUBIN,DIRECT < 0.1 MG/DL (<0.4); BILIRUBIN,TOTAL < 0.2 MG/DL (0.3-1.2); BLOOD UREA NITROGEN 28 MG/DL (9-23); CARBON DIOXIDE LEVEL 35 MMOL/L (20-31); CHLORIDE LEVEL 100 MMOL/L (98-107); CPK CREATINE PHOSPHOKINASE 73 U/L (34-145); CREATININE FOR GFR 0.72 MG/DL (0.55-1.30); GLOMERULAR FILTRATION RATE > 60.0 (>45); GLUCOSE, FASTING 148 MG/DL (74-106); MB/CK RELATIVE INDEX 2.46 (< OR =4); POTASSIUM SERUM 5.1 MMOL/L (3.5-5.1); SODIUM LEVEL 138 MMOL/L (136-145); THYROID STIMULATING HORMONE 0.909 uIU/ML (0.55-4.78); TOTAL PROTEIN 6.7 G/DL (5.7-8.2)
[2023-12-01 21:24] LABS: RSV AMPLIFICATION NEGATIVE (NEGATIVE)
[2023-12-01 22:10] VITALS: BP 124/57
[2023-12-01] MEDS: MEROPENEM INJ 1 GM in IV 1 EA IV ONE (22:10)
[2023-12-01] MEDS: METOPROLOL TART 25 MG TABLET PO ONE (22:10)
[2023-12-01] MEDS ORDERED: NITR-67 PO (22:59)
== END 2023-12-01 23:45 | disposition home or self-care (01) ==
LOC: M ED 18:40
DX: N30.90 Cystitis, unspecified without hematuria (principal); E11.9 Type 2 diabetes mellitus without complications; I10 Essential (primary) hypertension; G47.33 Obstructive sleep apnea (adult) (pediatric); Z86.79 Personal history of other diseases of the circulatory system; Z88.0 Allergy status to penicillin; Z88.2 Allergy status to sulfonamides; Z87.891 Personal history of nicotine dependence; Z79.52 Long term (current) use of systemic steroids; Z79.891 Long term (current) use of opiate analgesic; Z79.811 Long term (current) use of aromatase inhibitors; Z79.4 Long term (current) use of insulin; Z79.899 Other long term (current) drug therapy
CPT/HCPCS: 71045; 73030; 74176; 80048; 80076; 81001; 82550; 82553; 83605; 83690; 84439; 84443; 84484; 85025; 85610; 85730; 86140; 87040; 87086; 87631; 93005; 93041; 94760; 96361; 96365; 96366; 99284; J2184

== ENCOUNTER 2023-12-04 00:44 | Emergency (ER) | payer MEDICARE ==
[~2023-12-04] VITALS: Ht 165.1 cm; Wt 84.1 kg
[~2023-12-04 00:44] MED LIST changes: +NITR-67 PO
[2023-12-04 02:24] LABS: BASO # 0.1 10^3/uL (0.0-0.2); BASO % 0.8 % (0.0-1.0); EOS # 0.1 10^3/uL (0.0-0.5); EOS % 1.6 % (0.0-3.0); HEMOGLOBIN 11.1 g/dl (12.0-15.5); LYMPH # 1.9 10^3/uL (1.5-5.0); LYMPH % 25.1 % (24.0-44.0); MEAN CORPUSCULAR HEMOGLOBIN 29.3 pg (27.0-33.0); MEAN CORPUSCULAR HGB CONC 30.8 g/dl (32.0-36.5); MONO # 1.1 10^3/uL (0.0-0.8); MONO % 14.7 % (2.0-8.0); NEUTROPHILS # 4.3 10^3/uL (1.5-8.5); NEUTROPHILS % 57.3 % (36.0-66.0); PLATELET COUNT, AUTOMATED 242 10^3/uL (150-450); RED BLOOD COUNT 3.79 10^6/uL (4.00-5.40); WHITE BLOOD COUNT 7.4 10^3/uL (4.0-10.0)
[2023-12-04 02:35] LABS: INR 0.95; PROTHROMBIN TIME 12.4 SECONDS (12.5-14.5)
[2023-12-04 02:47] LABS: LIPASE 50 U/L (12-53)
[2023-12-04 02:48] LABS: CPK CREATINE PHOSPHOKINASE 46 U/L (34-145)
[2023-12-04 02:49] LABS: ALBUMIN 3.3 G/DL (3.2-5.2); ALKALINE PHOSPHATASE 84 U/L (46-116); ALT/SGPT 17 U/L (7.0-40); AST/SGOT < 8 U/L (<34); BILIRUBIN,DIRECT < 0.1 MG/DL (<0.4); BILIRUBIN,TOTAL 0.2 MG/DL (0.3-1.2); BLOOD UREA NITROGEN 28 MG/DL (9-23); CALCIUM LEVEL 9.1 MG/DL (8.3-10.6); CARBON DIOXIDE LEVEL 36 MMOL/L (20-31); CHLORIDE LEVEL 96 MMOL/L (98-107); CK-MB VALUE MASS < 1.0 NG/ML (<3.6); CREATININE FOR GFR 0.61 MG/DL (0.55-1.30); GLOMERULAR FILTRATION RATE > 60.0 (>45); GLUCOSE, FASTING 175 MG/DL (74-106); MB/CK RELATIVE INDEX 2.17 (< OR =4); POTASSIUM SERUM 5.2 MMOL/L (3.5-5.1); SODIUM LEVEL 135 MMOL/L (136-145); TOTAL PROTEIN 6.4 G/DL (5.7-8.2)
[2023-12-04 03:42] LABS: VENOUS BASE EXCESS 7.5 (-2.0-2.0); VENOUS O2 SATURATION 97.1 % (60.0-80.0); VENOUS PARTIAL PRESSURE CO2 73.1 mmHg (38.0-50.0); VENOUS PARTIAL PRESSURE O2 93.4 mmHg (30.0-50.0); VENOUS STANDARD HCO3 31.3 MMOL/L; VENOUS TOTAL CO2 38.2 MMOL/L (24.0-28.0)
[2023-12-04 04:16] LABS: CK-MB VALUE MASS < 1.0 NG/ML (<3.6)
[2023-12-04 04:29] LABS: CPK CREATINE PHOSPHOKINASE 39 U/L (34-145); MB/CK RELATIVE INDEX 2.56 (< OR =4)
[2023-12-04] MEDS ORDERED: ISOVUE-370 76% 100ML VIAL As Ordered ONE (04:42)
[2023-12-04] MEDS: NS 1,000 ML IV ONE (04:45)
[2023-12-04] MEDS: KETOROLAC 30 MG/ML 1ML VIAL IV ONE (04:45)
[2023-12-04 07:15] VITALS: BP 127/58; TEMP 96.9; O2SAT 94
[2023-12-04] MEDS ORDERED: PRED20TA PO (07:16)
== END 2023-12-04 07:42 | disposition home or self-care (01) ==
LOC: M ED 00:44
DX: N39.0 Urinary tract infection, site not specified (principal); M54.50 Low back pain, unspecified; R00.0 Tachycardia, unspecified; E11.9 Type 2 diabetes mellitus without complications; K21.9 Gastro-esophageal reflux disease without esophagitis; J44.9 Chronic obstructive pulmonary disease, unspecified; I10 Essential (primary) hypertension; I45.10 Unspecified right bundle-branch block; Z88.0 Allergy status to penicillin; Z88.2 Allergy status to sulfonamides; Z88.8 Allergy status to other drugs, medicaments and biological substances; Z86.79 Personal history of other diseases of the circulatory system; Z79.4 Long term (current) use of insulin; Z79.52 Long term (current) use of systemic steroids; Z79.811 Long term (current) use of aromatase inhibitors; Z79.891 Long term (current) use of opiate analgesic; Z79.899 Other long term (current) drug therapy
CPT/HCPCS: 71275; 74177; 80048; 80076; 81000; 81015; 82550; 82553; 82803; 83605; 83690; 84484; 85025; 85610; 85730; 87040; 87086; 87486; 87581; 87633; 87798; 93005; 93041; 96374; 99285; J1885; Q9967

== ENCOUNTER → 2023-12-20 | Outpatient (CLI) | payer MEDICARE, MEDICAID | LOC: M SLEEP 20:00 | PROVIDERS: ATTEND Internal Medicine Pulmonary Disease | DX: G47.8 Other sleep disorders (principal) ==

== ENCOUNTER 2023-12-28 06:47 | Emergency (ER) | payer MEDICARE, MEDICAID ==
[~2023-12-28] VITALS: Ht 165.1 cm; Wt 83.0 kg
[2023-12-28 08:05] LABS: RSV AMPLIFICATION NEGATIVE (NEGATIVE)
[2023-12-28 11:15] VITALS: BP 141/72; TEMP 97.5; O2SAT 97
== END 2023-12-28 11:16 | disposition home or self-care (01) ==
LOC: M ED 06:47
DX: J44.1 Chronic obstructive pulmonary disease with (acute) exacerbation (principal); J06.9 Acute upper respiratory infection, unspecified; N18.30 Chronic kidney disease, stage 3 unspecified; E66.9 Obesity, unspecified; Z79.84 Long term (current) use of oral hypoglycemic drugs; Z79.899 Other long term (current) drug therapy; Z88.0 Allergy status to penicillin; Z88.2 Allergy status to sulfonamides

== ENCOUNTER → 2024-02-11 | Outpatient (CLI) | payer MEDICARE, MEDICAID ==
[2024-02-11 12:30] LABS: CHOLESTEROL LEVEL 407 MG/DL (<200); CHOLESTEROL RISK RATIO 7.42 (<5); HDL CHOLESTEROL 54.8 MG/DL (>40); NON-HDL-C 352.2 MG/DL; TRIGLYCERIDES LEVEL 1794 MG/DL (<150)
== END ==
LOC: M LAB 11:27
PROVIDERS: ATTEND Internal Medicine Cardiovascular Disease
DX: E78.5 Hyperlipidemia, unspecified (principal)

== ENCOUNTER → 2024-07-27 | Outpatient (REF) | payer MEDICARE, MEDICAID ==
[~2024-07-27] MED LIST changes: +DOXY-441; -DOXY-443; +FLUO-365; -FLUO20CA22; +GABA-1172 PO; +GABA-1490 PO; -GABA-282 PO; -GABA600T4 PO; +NITR100C3 PO; -NITR1CAP11 PO
[2024-07-27 17:15] LABS: APPEARANCE, URINE HAZY (CLEAR); BACTERIA, URINE AUTO NEGATIVE (NEGATIVE); BILIRUBIN, URINE AUTO NEGATIVE (NEGATIVE); BLOOD, URINE BLOOD NEGATIVE (NEGATIVE); COLOR, URINE YELLOW (YELLOW); GLUCOSE, URINE (UA) AUTO 2+ mg/dL (NEGATIVE); KETONE, URINE AUTO NEGATIVE (NEGATIVE); LEUKOCYTE ESTERASE, URINE AUTO 2+ (NEGATIVE); NITRITE, URINE AUTO NEGATIVE (NEGATIVE); PROTEIN, URINE AUTO NEGATIVE (NEGATIVE); RBC, URINE AUTO 2 /HPF (0-3); SPECIFIC GRAVITY URINE AUTO 1.016 (1.002-1.035); SQUAMOUS EPITHELIAL CELL UR AU 4 /HPF (0-6); UROBILINOGEN, URINE AUTO 0.2 mg/dL (0.0-2.0); WBC, URINE AUTO 37 /HPF (0-3)
== END ==
LOC: M SMT 16:47
PROVIDERS: ATTEND Nurse Practitioner Family
DX: R30.0 Dysuria (principal)

== ENCOUNTER 2024-08-28 22:32 | Inpatient (IN) | payer MEDICARE, MEDICAID ==
[~2024-08-28] VITALS: Ht 165.1 cm; Wt 96.4 kg
[2024-08-28 23:38] LABS: VENOUS BASE EXCESS 2.9 (-2.0-2.0); VENOUS HCO3 33.4 MMOL/L (23.0-27.0); VENOUS O2 SATURATION 69.8 % (60.0-80.0); VENOUS PARTIAL PRESSURE CO2 87.1 mmHg (38.0-50.0); VENOUS PARTIAL PRESSURE O2 39.7 mmHg (30.0-50.0); VENOUS PH 7.202 UNITS (7.330-7.430); VENOUS STANDARD HCO3 26.5 MMOL/L; VENOUS TOTAL CO2 36.1 MMOL/L (24.0-28.0)
[2024-08-29 00:05] LABS: CK-MB VALUE MASS < 1.0 NG/ML (<3.6)
[2024-08-29 00:06] LABS: CPK CREATINE PHOSPHOKINASE 59 U/L (34-145); MB/CK RELATIVE INDEX 1.69 (< OR =4)
[2024-08-29 00:09] LABS: THYROID STIMULATING HORMONE 0.399 uIU/ML (0.55-4.78); THYROXINE (T4) 9.2 UG/DL (4.5-10.9)
[2024-08-29 00:16] LABS: ALBUMIN 3.6 G/DL (3.2-5.2); ALKALINE PHOSPHATASE 88 U/L (35-104); ALT/SGPT 14 U/L (7.0-40); AST/SGOT < 8 U/L (<34); BILIRUBIN,DIRECT < 0.1 MG/DL (<0.4); BILIRUBIN,TOTAL 0.2 MG/DL (0.3-1.2); BLOOD UREA NITROGEN 43 MG/DL (9-23); CALCIUM LEVEL 9.3 MG/DL (8.3-10.6); CARBON DIOXIDE LEVEL 32 MMOL/L (20-31); CHLORIDE LEVEL 106 MMOL/L (98-107); CREATININE FOR GFR 0.87 MG/DL (0.55-1.30); GLOMERULAR FILTRATION RATE > 60.0 (>45); GLUCOSE, FASTING 314 MG/DL (74-106); SODIUM LEVEL 141 MMOL/L (136-145); TOTAL PROTEIN 6.7 G/DL (5.7-8.2)
[2024-08-29] MEDS: IPRATROPIUM 0.5MG/ALBUTEROL 2.5MG INH SOL UD 3ML (DUONEB) NEB ONE ×2 (00:36→04:13)
[2024-08-29 00:46] LABS: BASO # 0.1 10^3/uL (0.0-0.2); BASO % 0.7 % (0.0-1.0); EOS % 0.1 % (0.0-3.0); HEMATOCRIT 41.8 % (36.0-47.0); LYMPH # 1.5 10^3/uL (1.5-5.0); LYMPH % 14.8 % (24.0-44.0); MEAN CORPUSCULAR HEMOGLOBIN 30.8 pg (27.0-33.0); MEAN CORPUSCULAR HGB CONC 35.9 g/dl (32.0-36.5); MEAN CORPUSCULAR VOLUME 85.8 fl (80.0-96.0); MONO # 0.6 10^3/uL (0.0-0.8); MONO % 5.5 % (2.0-8.0); NEUTROPHILS # 7.9 10^3/uL (1.5-8.5); NEUTROPHILS % 76.6 % (36.0-66.0); PLATELET COUNT, AUTOMATED 291 10^3/uL (150-450); RED BLOOD COUNT 4.87 10^6/uL (4.00-5.40); WHITE BLOOD COUNT 10.3 10^3/uL (4.0-10.0)
[2024-08-29 01:09] LABS: ABG BASE EXCESS 2.4 (-2.0-2.0); ABG HCO3 29.4 MMOL/L (22.0-26.0); ABG O2 SATURATION 97.2 % (95.0-99.0); ABG PARTIAL PRESSURE CO2 57.4 mmHg (35.0-45.0); ABG PARTIAL PRESSURE O2 97.1 mmHg (75.0-100.0); ABG STANDARD HCO3 26.6 MMOL/L. (22.0-26.0); ABG TOTAL CO2 31.1 MMOL/L (23.0-31.0); ABG pH (ARTERIAL) 7.327 UNITS (7.350-7.450)
[2024-08-29] MEDS: SOD POLYSTYRENE SULFONATE SUSP 15GM 60ML UD PO ONE (01:36)
[2024-08-29] MEDS: DEXTROSE 50% 50ML SYRINGE IV STA (01:36)
[2024-08-29] MEDS: HumuLIN R (REGULAR) INSULIN (NovoLIN R) **100U/ML** PER UNIT IV ONE (01:36)
[2024-08-29] MEDS: SODIUM BICARBONATE 8.4% INJ 50ML SYRINGE IV STA (01:37)
[2024-08-29] MEDS: methylPREDNISolone 125MG 2ML VIAL IV ONE (01:37)
[2024-08-29] MEDS: CALCIUM GLUCONATE 1,000 MG in DEXTROSE 5% (D5W) MINI-BAG PLU 100 ML IV ONE (01:37)
[2024-08-29] MEDS: cefTRIAXone SOD 1 GM in DEXTROSE 5% (D5W) ADV/MINI-BAG 50 ML IV ONE (01:37)
[2024-08-29] MEDS: NS 1,000 ML IV ONE (01:42)
[2024-08-29] MEDS: AZITHROMYCIN INJ 500 MG, VIAL MATE ADAPTER 1 EACH in NS 250 ML IV ONE (02:16)
[2024-08-29] MEDS: GABAPENTIN 300 MG CAP PO ONE (03:39)
[2024-08-29] MEDS: NORCO, ANEXSIA 5/325MG TABLET (HYDROcodone/ACETAMINOPHEN) PO ONE (03:39)
[2024-08-29 03:59] LABS: BLOOD UREA NITROGEN 38 MG/DL (9-23); CALCIUM LEVEL 9.2 MG/DL (8.3-10.6); CARBON DIOXIDE LEVEL 36 MMOL/L (20-31); CHLORIDE LEVEL 105 MMOL/L (98-107); CREATININE FOR GFR 0.69 MG/DL (0.55-1.30); GLOMERULAR FILTRATION RATE > 60.0 (>45); GLUCOSE, FASTING 258 MG/DL (74-106); POTASSIUM SERUM 5.7 MMOL/L (3.5-5.1); SODIUM LEVEL 143 MMOL/L (136-145)
[2024-08-29] MEDS ORDERED: ACETAMINOPHEN 325 MG TAB PO PRN (04:30)
[2024-08-29] MEDS ORDERED: ALBUTEROL 90 MCG/ACT 8GM HFA INHALER INH PRN (04:30)
[2024-08-29] MEDS ORDERED: GLUCOSE 4 GM CHEW PO PRN (04:30)
[2024-08-29] MEDS ORDERED: DEXTROSE 50% 50ML SYRINGE IV PRN (04:30)
[2024-08-29] MEDS ORDERED: GLUCAGON INJ 1MG VIAL SC PRN (04:30)
[2024-08-29] MEDS ORDERED: MOM 30ML SUSPENSION UDC PO PRN (04:30)
[2024-08-29] MEDS ORDERED: AZIT500T5 PO (05:54)
[2024-08-29] MEDS ORDERED: CIPR500T39 PO (05:54)
[2024-08-29] MEDS ORDERED: NEOM1SUS13 AS (05:54)
[2024-08-29] MEDS ORDERED: HOME MED LIST COMPLETE! XX SCH (06:00)
[2024-08-29 06:23] LABS: MEAN CORPUSCULAR HEMOGLOBIN 29.5 pg (27.0-33.0); MEAN CORPUSCULAR HGB CONC 30.4 g/dl (32.0-36.5); MEAN CORPUSCULAR VOLUME 97.2 fl (80.0-96.0); PLATELET COUNT, AUTOMATED 230 10^3/uL (150-450); RED BLOOD COUNT 3.86 10^6/uL (4.00-5.40); WHITE BLOOD COUNT 10.3 10^3/uL (4.0-10.0)
[2024-08-29 06:25] VITALS: BP 162/85; TEMP 98.3; O2SAT 95
[2024-08-29 06:32] LABS: HEMATOCRIT 37.5 % (36.0-47.0); HEMOGLOBIN 11.4 g/dl (12.0-15.5)
[2024-08-29 06:34] VITALS: BP 162/85; TEMP 98.3; O2SAT 95
[2024-08-29 06:36] LABS: ALBUMIN 3.5 G/DL (3.2-5.2); ALKALINE PHOSPHATASE 84 U/L (35-104); ALT/SGPT 15 U/L (7.0-40); AST/SGOT 9 U/L (<34); BILIRUBIN,TOTAL 0.2 MG/DL (0.3-1.2); BLOOD UREA NITROGEN 39 MG/DL (9-23); CALCIUM LEVEL 9.3 MG/DL (8.3-10.6); CARBON DIOXIDE LEVEL 32 MMOL/L (20-31); CHLORIDE LEVEL 106 MMOL/L (98-107); GLOMERULAR FILTRATION RATE > 60.0 (>45); GLUCOSE, FASTING 330 MG/DL (74-106); POTASSIUM SERUM 5.9 MMOL/L (3.5-5.1); SODIUM LEVEL 143 MMOL/L (136-145); TOTAL PROTEIN 6.7 G/DL (5.7-8.2)
[2024-08-29] MEDS: PATIROMER SORBITEX CALCIUM 8.4 GM POWDER PACKET (VELTASSA) PO ONE (06:51)
[2024-08-29] MEDS ORDERED: FUROSEMIDE 20MG/2ML VIAL IV ONE (07:15)
[2024-08-29 07:28] VITALS: O2SAT 93
[2024-08-29] MEDS: LEVALBUTEROL 1.25MG 0.5ML CONCENTRATE NEB INH SCH (08:01)
[2024-08-29] MEDS: SYMBICORT 160/4.5MCG INHALER 6GM INH SCH (08:01)
[2024-08-29] MEDS: predniSONE 20 MG TAB PO SCH (08:04)
[2024-08-29] MEDS: METOPROLOL TART 12.5 MG PER 1/2 TAB PO SCH (08:05)
[2024-08-29] MEDS: FUROSEMIDE 40MG/4ML VIAL IV ONE (08:05)
[2024-08-29] MEDS: ENOXAPARIN 40MG/0.4ML SYRINGE (J1650 PER 10MG) SC SCH (08:05)
[2024-08-29] MEDS: INSULIN LISPRO (NovoLOG) PER UNIT SC SCH ×2 (08:06→22:03)
[2024-08-29 12:00] VITALS: TEMP 97.5; O2SAT 95
[2024-08-29] MEDS: GABAPENTIN 300 MG CAP PO SCH (12:33)
[2024-08-29] MEDS: oxyCODONE 5MG TAB PO PRN (12:34)
[2024-08-29 12:59] LABS: BLOOD UREA NITROGEN 35 MG/DL (9-23); CALCIUM LEVEL 9.3 MG/DL (8.3-10.6); CARBON DIOXIDE LEVEL 30 MMOL/L (20-31); CHLORIDE LEVEL 102 MMOL/L (98-107); CREATININE FOR GFR 0.68 MG/DL (0.55-1.30); GLOMERULAR FILTRATION RATE > 60.0 (>45); GLUCOSE, FASTING 312 MG/DL (74-106); POTASSIUM SERUM 4.8 MMOL/L (3.5-5.1); SODIUM LEVEL 141 MMOL/L (136-145)
[2024-08-29 14:05] LABS: HEMOGLOBIN 10.9 g/dl (12.0-15.5); MEAN CORPUSCULAR HEMOGLOBIN 29.1 pg (27.0-33.0); MEAN CORPUSCULAR HGB CONC 31.1 g/dl (32.0-36.5); MEAN CORPUSCULAR VOLUME 93.6 fl (80.0-96.0); PLATELET COUNT, AUTOMATED 263 10^3/uL (150-450); RED BLOOD COUNT 3.74 10^6/uL (4.00-5.40); WHITE BLOOD COUNT 9.3 10^3/uL (4.0-10.0)
[2024-08-29 20:22] VITALS: BP 137/65; TEMP 97.7; O2SAT 99
[2024-08-29] MEDS ORDERED: ALBUTEROL SULFATE 2.5MG/0.5ML INH NEB SOLN NEB PRN (21:05)
[2024-08-29] MEDS: IPRATROPIUM 0.5MG/ALBUTEROL 2.5MG INH SOL UD 3ML (DUONEB) NEB SCH (23:14)
[2024-08-30] MEDS: cefTRIAXone SOD 1 GM in DEXTROSE 5% (D5W) ADV/MINI-BAG 50 ML IV SCH (01:54)
[2024-08-30] MEDS: AZITHROMYCIN INJ 500 MG, VIAL MATE ADAPTER 1 EACH in NS 250 ML IV SCH (02:30)
[2024-08-30 03:46] VITALS: BP 115/57; TEMP 97.2; O2SAT 96
[2024-08-30 06:25] LABS: HEMATOCRIT 31.9 % (36.0-47.0); MEAN CORPUSCULAR HEMOGLOBIN 29.8 pg (27.0-33.0); MEAN CORPUSCULAR HGB CONC 31.3 g/dl (32.0-36.5); MEAN CORPUSCULAR VOLUME 94.9 fl (80.0-96.0); PLATELET COUNT, AUTOMATED 244 10^3/uL (150-450); RED BLOOD COUNT 3.36 10^6/uL (4.00-5.40); WHITE BLOOD COUNT 9.3 10^3/uL (4.0-10.0)
[2024-08-30 06:51] LABS: BLOOD UREA NITROGEN 35 MG/DL (9-23); CALCIUM LEVEL 9.2 MG/DL (8.3-10.6); CARBON DIOXIDE LEVEL 38 MMOL/L (20-31); CHLORIDE LEVEL 99 MMOL/L (98-107); CREATININE FOR GFR 0.75 MG/DL (0.55-1.30); GLOMERULAR FILTRATION RATE > 60.0 (>45); GLUCOSE, FASTING 202 MG/DL (74-106); POTASSIUM SERUM 3.8 MMOL/L (3.5-5.1); SODIUM LEVEL 143 MMOL/L (136-145)
[2024-08-30] MEDS: NYSTATIN 100,000 UNITS/GM TOPICAL PWD 15GM TOP SCH (09:00)
[2024-08-30] MEDS: MAG SULF 1GM/100ML (MAG RUN) 1 GM in IV 1 EA IV SCH (09:09)
[2024-08-30] MEDS: ALPRAZolam 0.5 MG TAB PO PRN (11:17)
[2024-08-30 12:00] VITALS: BP 138/88; TEMP 97.9; O2SAT 94
[2024-08-30 20:30] VITALS: BP 148/61; TEMP 97.3; O2SAT 96
[2024-08-31 04:08] VITALS: BP 116/75; TEMP 97.7; O2SAT 95
[2024-08-31 06:16] LABS: HEMATOCRIT 30.6 % (36.0-47.0); HEMOGLOBIN 9.5 g/dl (12.0-15.5); MEAN CORPUSCULAR HEMOGLOBIN 28.7 pg (27.0-33.0); MEAN CORPUSCULAR VOLUME 92.4 fl (80.0-96.0); PLATELET COUNT, AUTOMATED 227 10^3/uL (150-450); RED BLOOD COUNT 3.31 10^6/uL (4.00-5.40); WHITE BLOOD COUNT 7.9 10^3/uL (4.0-10.0)
[2024-08-31 06:43] LABS: BLOOD UREA NITROGEN 28 MG/DL (9-23); CALCIUM LEVEL 8.9 MG/DL (8.3-10.6); CARBON DIOXIDE LEVEL 37 MMOL/L (20-31); CHLORIDE LEVEL 101 MMOL/L (98-107); CREATININE FOR GFR 0.63 MG/DL (0.55-1.30); GLOMERULAR FILTRATION RATE > 60.0 (>45); GLUCOSE, FASTING 190 MG/DL (74-106); POTASSIUM SERUM 3.9 MMOL/L (3.5-5.1); SODIUM LEVEL 143 MMOL/L (136-145)
[2024-08-31] MEDS: FLUCONAZOLE 100 MG TAB PO SCH (10:34)
[2024-08-31] MEDS: FUROSEMIDE 40MG/4ML VIAL IV ONE (10:35)
[2024-08-31] MEDS: DICLOFENAC EPOLAMINE 1.3% PATCH TOP SCH (10:35)
[2024-08-31 12:00] VITALS: BP 150/61; TEMP 97.3; O2SAT 93
[2024-08-31 20:53] VITALS: BP 156/90; TEMP 97.7; O2SAT 96
[2024-08-31] MEDS: AZITHROMYCIN 250MG TABLET PO SCH (20:55)
[2024-09-01 04:10] VITALS: BP 127/64; TEMP 97.7; O2SAT 96
[2024-09-01 04:46] LABS: HEMATOCRIT 32.8 % (36.0-47.0); HEMOGLOBIN 10.3 g/dl (12.0-15.5); MEAN CORPUSCULAR HEMOGLOBIN 29.2 pg (27.0-33.0); MEAN CORPUSCULAR HGB CONC 31.4 g/dl (32.0-36.5); MEAN CORPUSCULAR VOLUME 92.9 fl (80.0-96.0); PLATELET COUNT, AUTOMATED 261 10^3/uL (150-450); RED BLOOD COUNT 3.53 10^6/uL (4.00-5.40); WHITE BLOOD COUNT 7.6 10^3/uL (4.0-10.0)
[2024-09-01 05:12] LABS: BLOOD UREA NITROGEN 26 MG/DL (9-23); CALCIUM LEVEL 9.3 MG/DL (8.3-10.6); CARBON DIOXIDE LEVEL 37 MMOL/L (20-31); CHLORIDE LEVEL 99 MMOL/L (98-107); CREATININE FOR GFR 0.66 MG/DL (0.55-1.30); GLOMERULAR FILTRATION RATE > 60.0 (>45); GLUCOSE, FASTING 210 MG/DL (74-106); POTASSIUM SERUM 4.1 MMOL/L (3.5-5.1); SODIUM LEVEL 142 MMOL/L (136-145)
[2024-09-01 11:00] VITALS: O2SAT 93
[2024-09-01 12:00] VITALS: BP 166/64; TEMP 97.7; O2SAT 93
[2024-09-01 14:00] VITALS: BP 166/64; TEMP 97.7; O2SAT 93
[2024-09-01] MEDS: FUROSEMIDE 40MG/4ML VIAL IV ONE (15:26)
[2024-09-01 20:18] VITALS: BP 170/77; TEMP 97.7; O2SAT 96
[2024-09-02 04:30] VITALS: BP 128/62; TEMP 97.5; O2SAT 100
[2024-09-02 05:08] LABS: HEMATOCRIT 32.6 % (36.0-47.0); HEMOGLOBIN 10.3 g/dl (12.0-15.5); MEAN CORPUSCULAR HEMOGLOBIN 29.3 pg (27.0-33.0); MEAN CORPUSCULAR HGB CONC 31.6 g/dl (32.0-36.5); MEAN CORPUSCULAR VOLUME 92.9 fl (80.0-96.0); PLATELET COUNT, AUTOMATED 274 10^3/uL (150-450); RED BLOOD COUNT 3.51 10^6/uL (4.00-5.40); WHITE BLOOD COUNT 8.4 10^3/uL (4.0-10.0)
[2024-09-02 05:56] LABS: BLOOD UREA NITROGEN 26 MG/DL (9-23); CALCIUM LEVEL 9.8 MG/DL (8.3-10.6); CARBON DIOXIDE LEVEL > 40.0 MMOL/L (20-31); CHLORIDE LEVEL 98 MMOL/L (98-107); CREATININE FOR GFR 0.68 MG/DL (0.55-1.30); GLOMERULAR FILTRATION RATE > 60.0 (>45); GLUCOSE, FASTING 140 MG/DL (74-106); POTASSIUM SERUM 4.4 MMOL/L (3.5-5.1); SODIUM LEVEL 141 MMOL/L (136-145)
[2024-09-02] MEDS: LEVEMIR (INSULIN DETEMIR) 1 UNITS/0.01ML SC SCH (08:44)
[2024-09-02 10:37] LABS: VENOUS BASE EXCESS 12.1 (-2.0-2.0); VENOUS HCO3 39.5 MMOL/L (23.0-27.0); VENOUS O2 SATURATION 98.8 % (60.0-80.0); VENOUS PARTIAL PRESSURE CO2 67.1 mmHg (38.0-50.0); VENOUS PARTIAL PRESSURE O2 148.9 mmHg (30.0-50.0); VENOUS PH 7.388 UNITS (7.330-7.430); VENOUS STANDARD HCO3 35.9 MMOL/L; VENOUS TOTAL CO2 41.6 MMOL/L (24.0-28.0)
[2024-09-02 12:00] VITALS: BP 127/110; TEMP 97.3; O2SAT 95
[2024-09-02 13:30] VITALS: BP 155/90
[2024-09-02] MEDS: FUROSEMIDE 40MG/4ML VIAL IV SCH (18:16)
[2024-09-02 21:01] VITALS: BP 172/90; TEMP 97.3; O2SAT 96
[2024-09-02 22:42] VITALS: BP 138/72
[2024-09-03 03:50] VITALS: BP 136/74; TEMP 96.8; O2SAT 96
[2024-09-03 05:40] VITALS: BP 129/51
[2024-09-03 06:27] LABS: HEMATOCRIT 36.4 % (36.0-47.0); HEMOGLOBIN 11.4 g/dl (12.0-15.5); MEAN CORPUSCULAR HEMOGLOBIN 29.1 pg (27.0-33.0); MEAN CORPUSCULAR HGB CONC 31.3 g/dl (32.0-36.5); MEAN CORPUSCULAR VOLUME 92.9 fl (80.0-96.0); PLATELET COUNT, AUTOMATED 302 10^3/uL (150-450); RED BLOOD COUNT 3.92 10^6/uL (4.00-5.40); WHITE BLOOD COUNT 9.9 10^3/uL (4.0-10.0)
[2024-09-03 07:00] LABS: BLOOD UREA NITROGEN 35 MG/DL (9-23); CALCIUM LEVEL 10.6 MG/DL (8.3-10.6); CARBON DIOXIDE LEVEL > 40.0 MMOL/L (20-31); CHLORIDE LEVEL 90 MMOL/L (98-107); CREATININE FOR GFR 0.79 MG/DL (0.55-1.30); GLOMERULAR FILTRATION RATE > 60.0 (>45); GLUCOSE, FASTING 151 MG/DL (74-106); POTASSIUM SERUM 4.2 MMOL/L (3.5-5.1); SODIUM LEVEL 140 MMOL/L (136-145)
[2024-09-03 08:25] VITALS: BP 140/67
[2024-09-03] MEDS: LEVEMIR (INSULIN DETEMIR) 1 UNITS/0.01ML SC ONE (11:26)
[2024-09-03 12:00] VITALS: BP 128/78; TEMP 97.8; O2SAT 93
[2024-09-03 13:38] VITALS: BP 131/64
[2024-09-03] MEDS ORDERED: FLUC100T3 PO (15:44)
[2024-09-03] MEDS ORDERED: PRED10TA2 PO (15:44)
[2024-09-03] MEDS ORDERED: TORS20TA2 PO (15:45)
[2024-09-03] MEDS ORDERED: BASA100I SC (16:00)
[2024-09-03] MEDS ORDERED: ALCOPAD25 TOP (16:00)
[2024-09-03] MEDS ORDERED: BLOOKIT21 XX (16:00)
[2024-09-03] MEDS ORDERED: PEN-308 SC (16:00)
[2024-09-03] MEDS ORDERED: GLUC1TES2 XX (16:00)
[2024-09-03] MEDS ORDERED: DOXY-440 PO (16:02)
[2024-09-03] MEDS ORDERED: TOUJ1.2I SC (16:33)
== END 2024-09-03 17:30 | disposition home health service (06) | DRG 871 ==
LOC: M ED 22:32 → M ED INP 08-29 04:29 → M MSPAV 08-29 05:20
PROVIDERS: ADMIT Internal Medicine; ATTEND Student in an Organized Health Care Education/Training Program
DX: A41.9 Sepsis, unspecified organism (principal); J18.9 Pneumonia, unspecified organism; J44.1 Chronic obstructive pulmonary disease with (acute) exacerbation; I50.32 Chronic diastolic (congestive) heart failure; N39.0 Urinary tract infection, site not specified; J96.10 Chronic respiratory failure, unspecified whether with hypoxia or hypercapnia; J44.0 Chronic obstructive pulmonary disease with (acute) lower respiratory infection; K21.9 Gastro-esophageal reflux disease without esophagitis; G47.33 Obstructive sleep apnea (adult) (pediatric); E87.5 Hyperkalemia; I11.0 Hypertensive heart disease with heart failure; I25.10 Atherosclerotic heart disease of native coronary artery without angina pectoris; G89.29 Other chronic pain; Z99.81 Dependence on supplemental oxygen; E11.9 Type 2 diabetes mellitus without complications; F39 Unspecified mood [affective] disorder; Z88.0 Allergy status to penicillin; Z88.2 Allergy status to sulfonamides; Z88.8 Allergy status to other drugs, medicaments and biological substances; Z79.899 Other long term (current) drug therapy; K57.90 Diverticulosis of intestine, part unspecified, without perforation or abscess without bleeding; Z87.442 Personal history of urinary calculi; F32.A Depression, unspecified; F41.9 Anxiety disorder, unspecified

== ENCOUNTER → 2024-09-29 | Outpatient (CLI) | payer MEDICARE, MEDICAID ==
[~2024-09-29] MED LIST changes: -ADV250INH INH; +ADVA1AER9 INH; +ALCOPAD25 TOP; +AZIT500T5 PO; +CIPR500T39 PO; +DOXY-440 PO; +FLUC100T3 PO; +FLUC150T9 PO; +FURO20TA2 PO; +NEOM1SUS13 AS; +TORS20TA2 PO
[2024-09-29 10:17] LABS: HEMOGLOBIN 11.1 g/dl (12.0-15.5); MEAN CORPUSCULAR HEMOGLOBIN 29.4 pg (27.0-33.0); MEAN CORPUSCULAR HGB CONC 30.8 g/dl (32.0-36.5); MEAN CORPUSCULAR VOLUME 95.2 fl (80.0-96.0); PLATELET COUNT, AUTOMATED 289 10^3/uL (150-450); RED BLOOD COUNT 3.78 10^6/uL (4.00-5.40)
[2024-09-29 10:42] LABS: THYROID STIMULATING HORMONE 0.707 uIU/ML (0.55-4.78); TOTAL 25(OH) VITAMIN D 62.7 NG/ML (20.0-100.0)
[2024-09-29 10:44] LABS: HEMOGLOBIN A1c 8.8 % (4.0-6.0)
[2024-09-29 10:45] LABS: ALBUMIN 3.2 G/DL (3.2-5.2); ALKALINE PHOSPHATASE 71 U/L (35-104); ALT/SGPT 17 U/L (7.0-40); AST/SGOT 9 U/L (<34); BILIRUBIN,TOTAL 0.2 MG/DL (0.3-1.2); BLOOD UREA NITROGEN 55 MG/DL (9-23); CALCIUM LEVEL 9.1 MG/DL (8.3-10.6); CARBON DIOXIDE LEVEL 33 MMOL/L (20-31); CHLORIDE LEVEL 99 MMOL/L (98-107); CHOLESTEROL LEVEL 269 MG/DL (<200); CHOLESTEROL RISK RATIO 7.66 (<5); CREATININE FOR GFR 1.15 MG/DL (0.55-1.30); GLUCOSE, FASTING 151 MG/DL (74-106); HDL CHOLESTEROL 35.1 MG/DL (>40); NON-HDL-C 233.9 MG/DL; POTASSIUM SERUM 5.4 MMOL/L (3.5-5.1); SODIUM LEVEL 138 MMOL/L (136-145); TOTAL PROTEIN 6.3 G/DL (5.7-8.2); TRIGLYCERIDES LEVEL 977 MG/DL (<150)
== END ==
LOC: M LAB 08:28
PROVIDERS: ATTEND Family Medicine
DX: E11.9 Type 2 diabetes mellitus without complications (principal); R53.83 Other fatigue; E78.5 Hyperlipidemia, unspecified; I25.84 Coronary atherosclerosis due to calcified coronary lesion; I11.0 Hypertensive heart disease with heart failure; Z79.899 Other long term (current) drug therapy

== ENCOUNTER → 2024-09-29 | Outpatient (CLI) | payer MEDICARE, MEDICAID ==
[2024-09-29 11:19] LABS: ALBUMIN 3.2 G/DL (3.2-5.2); ALKALINE PHOSPHATASE 70 U/L (35-104); ALT/SGPT 18 U/L (7.0-40); AST/SGOT 10 U/L (<34); BILIRUBIN,TOTAL 0.2 MG/DL (0.3-1.2); BLOOD UREA NITROGEN 55 MG/DL (9-23); CARBON DIOXIDE LEVEL 32 MMOL/L (20-31); CHLORIDE LEVEL 98 MMOL/L (98-107); CHOLESTEROL LEVEL 268 MG/DL (<200); CHOLESTEROL RISK RATIO 7.57 (<5); CREATININE FOR GFR 1.13 MG/DL (0.55-1.30); GLUCOSE, FASTING 150 MG/DL (74-106); HDL CHOLESTEROL 35.4 MG/DL (>40); NON-HDL-C 232.6 MG/DL; POTASSIUM SERUM 5.4 MMOL/L (3.5-5.1); SODIUM LEVEL 139 MMOL/L (136-145); TOTAL PROTEIN 6.3 G/DL (5.7-8.2); TRIGLYCERIDES LEVEL 980 MG/DL (<150)
== END ==
LOC: M LAB 08:25
PROVIDERS: ATTEND Internal Medicine Cardiovascular Disease
DX: E11.9 Type 2 diabetes mellitus without complications (principal); E78.5 Hyperlipidemia, unspecified; I25.84 Coronary atherosclerosis due to calcified coronary lesion; I11.0 Hypertensive heart disease with heart failure

== ENCOUNTER 2024-09-30 08:44 | Inpatient (IN) | payer MEDICARE, MEDICAID ==
[~2024-09-30] VITALS: Ht 165.1 cm; Wt 98.3 kg
[2024-09-30] VITALS (14 sets, daily range): BP systolic 90–169; BP diastolic 52–79; TEMP 97.1–98.2; O2SAT 93–98
[2024-09-30] MEDS: FORMOTEROL FUMARATE 20 MCG/2 ML INHALATION SOLUTION (PERFOROMIST) INH SCH (08:00)
[2024-09-30] MEDS: BUDESONIDE 0.5 MG/2 ML INHALATION SUSPENSION NEB SCH (08:00)
[~2024-09-30 08:44] MED LIST changes: -FLUC150T9 PO; -FURO20TA2 PO
[2024-09-30] MEDS: IPRATROPIUM 0.5MG/ALBUTEROL 2.5MG INH SOL UD 3ML (DUONEB) NEB SCH (09:14)
[2024-09-30] MEDS: methylPREDNISolone 125MG 2ML VIAL IV ONE (09:17)
[2024-09-30 09:20] LABS: BASO % 0.5 % (0.0-1.0); EOS # 0.1 10^3/uL (0.0-0.5); EOS % 0.8 % (0.0-3.0); HEMATOCRIT 36.8 % (36.0-47.0); HEMOGLOBIN 11.3 g/dl (12.0-15.5); LYMPH # 1.4 10^3/uL (1.5-5.0); LYMPH % 22.9 % (24.0-44.0); MEAN CORPUSCULAR HGB CONC 30.7 g/dl (32.0-36.5); MEAN CORPUSCULAR VOLUME 97.6 fl (80.0-96.0); MONO # 0.8 10^3/uL (0.0-0.8); MONO % 13.1 % (2.0-8.0); NEUTROPHILS # 3.9 10^3/uL (1.5-8.5); NEUTROPHILS % 62.1 % (36.0-66.0); PLATELET COUNT, AUTOMATED 320 10^3/uL (150-450); RED BLOOD COUNT 3.77 10^6/uL (4.00-5.40); WHITE BLOOD COUNT 6.3 10^3/uL (4.0-10.0)
[2024-09-30 09:30] LABS: ABG HCO3 32.8 MMOL/L (22.0-26.0); ABG O2 SATURATION 95.1 % (95.0-99.0); ABG PARTIAL PRESSURE O2 78.7 mmHg (75.0-100.0); ABG STANDARD HCO3 28.9 MMOL/L. (22.0-26.0); ABG TOTAL CO2 34.8 MMOL/L (23.0-31.0); ABG pH (ARTERIAL) 7.321 UNITS (7.350-7.450)
[2024-09-30 09:34] LABS: ABG PARTIAL PRESSURE CO2 64.9 mmHg (35.0-45.0)
[2024-09-30 09:51] LABS: ALBUMIN 3.3 G/DL (3.2-5.2); ALKALINE PHOSPHATASE 92 U/L (35-104); ALT/SGPT 18 U/L (7.0-40); AST/SGOT 10 U/L (<34); BILIRUBIN,DIRECT < 0.1 MG/DL (<0.4); BILIRUBIN,TOTAL 0.2 MG/DL (0.3-1.2); BLOOD UREA NITROGEN 54 MG/DL (9-23); CALCIUM LEVEL 9.5 MG/DL (8.3-10.6); CARBON DIOXIDE LEVEL 37 MMOL/L (20-31); CHLORIDE LEVEL 99 MMOL/L (98-107); CREATININE FOR GFR 1.25 MG/DL (0.55-1.30); GLOMERULAR FILTRATION RATE 45.4 (>45); GLUCOSE, FASTING 230 MG/DL (74-106); POTASSIUM SERUM 5.6 MMOL/L (3.5-5.1); SODIUM LEVEL 139 MMOL/L (136-145); TOTAL PROTEIN 6.7 G/DL (5.7-8.2)
[2024-09-30] MEDS: ACETAMINOPHEN 500 MG TAB PO ONE (09:55)
[2024-09-30 09:56] LABS: OSMOLALITY SERUM 327 MOSM/KG (280-301)
[2024-09-30] MEDS ORDERED: ISOVUE-370 76% 100ML VIAL As Ordered ONE (10:05)
[2024-09-30] MEDS: ONDANSETRON 4MG 2ML VIAL IV ONE (10:06)
[2024-09-30] MEDS: cefTRIAXone SOD 2 GM in DEXTROSE 5% (D5W) ADV/MINI-BAG 50 ML IV ONE (10:51)
[2024-09-30 11:14] LABS: ABG BASE EXCESS 2.1 (-2.0-2.0); ABG HCO3 30.6 MMOL/L (22.0-26.0); ABG O2 SATURATION 89.2 % (95.0-99.0); ABG PARTIAL PRESSURE O2 60.9 mmHg (75.0-100.0); ABG STANDARD HCO3 26.2 MMOL/L. (22.0-26.0); ABG TOTAL CO2 32.7 MMOL/L (23.0-31.0); ABG pH (ARTERIAL) 7.264 UNITS (7.350-7.450)
[2024-09-30 11:19] LABS: ABG PARTIAL PRESSURE CO2 69.1 mmHg (35.0-45.0)
[2024-09-30] MEDS: [UNRECOGNIZED DRUG - OTHER] IV ONE (11:47)
[2024-09-30] MEDS: NS 0.9% IV ONE (11:47)
[2024-09-30 12:29] LABS: KETONE, URINE AUTO RFX NEGATIVE (NEGATIVE)
[2024-09-30 12:31] LABS: LEUKOCYTE ESTERASE UR AUTO RFX 3+ (NEGATIVE)
[2024-09-30 12:32] LABS: AMPHETAMINES LEVEL URINE NEGATIVE (NEGATIVE); BARBITURATES URINE NEGATIVE (NEGATIVE); COCAINE METABOLITE URINE NEGATIVE (NEGATIVE)
[2024-09-30 12:33] LABS: CANNABINOIDS URINE NEGATIVE (NEGATIVE); METHADONE URINE NEGATIVE (NEGATIVE); PHENCYCLIDINE URINE NEGATIVE (NEGATIVE)
[2024-09-30 12:34] LABS: BENZODIAZEPINES URINE POSITIVE (NEGATIVE); OPIATES URINE POSITIVE (NEGATIVE)
[2024-09-30 14:07] LABS: CALCIUM LEVEL 8.5 MG/DL (8.3-10.6); CREATININE FOR GFR 1.32 MG/DL (0.55-1.30); GLOMERULAR FILTRATION RATE 42.6 (>45); PHOSPHORUS LEVEL 2.4 MG/DL (2.4-5.1); POTASSIUM SERUM 5.3 MMOL/L (3.5-5.1); PROCALCITONIN 0.18 ng/ml
[2024-09-30 14:12] LABS: ABG BASE EXCESS -1.3 (-2.0-2.0); ABG HCO3 27.5 MMOL/L (22.0-26.0); ABG O2 SATURATION 94.7 % (95.0-99.0); ABG PARTIAL PRESSURE O2 85.6 mmHg (75.0-100.0); ABG STANDARD HCO3 23.4 MMOL/L. (22.0-26.0); ABG TOTAL CO2 29.7 MMOL/L (23.0-31.0)
[2024-09-30 14:17] LABS: ABG PARTIAL PRESSURE CO2 71.1 mmHg (35.0-45.0); ABG pH (ARTERIAL) 7.206 UNITS (7.350-7.450)
[2024-09-30] MEDS: LR 1,000 ML IV SCH (14:54)
[2024-09-30 15:30] LABS: ABG BASE EXCESS -2.7 (-2.0-2.0); ABG HCO3 25.9 MMOL/L (22.0-26.0); ABG O2 SATURATION 93.5 % (95.0-99.0); ABG PARTIAL PRESSURE O2 77.5 mmHg (75.0-100.0); ABG STANDARD HCO3 22.1 MMOL/L. (22.0-26.0); ABG TOTAL CO2 27.9 MMOL/L (23.0-31.0)
[2024-09-30 15:32] LABS: ABG pH (ARTERIAL) 7.206 UNITS (7.350-7.450)
[2024-09-30 15:33] LABS: ABG PARTIAL PRESSURE CO2 66.8 mmHg (35.0-45.0)
[2024-09-30] MEDS: methylPREDNISolone 125MG 2ML VIAL IV SCH (16:57)
[2024-09-30] MEDS ORDERED: FLUC150T9 PO (18:43)
[2024-09-30] MEDS ORDERED: TOUJ1.2I SC (18:43)
[2024-09-30] MEDS ORDERED: FURO20TA2 PO (18:47)
[2024-09-30] MEDS ORDERED: HOME MED LIST COMPLETE! XX SCH (18:50)
[2024-09-30] MEDS: HALOPERIDOL LACTATE 5MG/ML VIAL IV ONE (21:33)
[2024-10-01] VITALS (84 sets, daily range): BP systolic 83–225; BP diastolic 43–127; TEMP 96.9–97.8; O2SAT 90–100
[2024-10-01] MEDS: ACETAMINOPHEN *IV* 1,000 MG in IV 1 EA IV ONE (00:17)
[2024-10-01] MEDS: LORazepam 2 MG/ML 1ML VIAL IV STA (01:20)
[2024-10-01 04:50] LABS: BASO % 0.1 % (0.0-1.0); HEMATOCRIT 31.4 % (36.0-47.0); HEMOGLOBIN 9.5 g/dl (12.0-15.5); LYMPH # 0.5 10^3/uL (1.5-5.0); LYMPH % 5.4 % (24.0-44.0); MEAN CORPUSCULAR HEMOGLOBIN 29.4 pg (27.0-33.0); MEAN CORPUSCULAR HGB CONC 30.3 g/dl (32.0-36.5); MEAN CORPUSCULAR VOLUME 97.2 fl (80.0-96.0); MONO # 0.4 10^3/uL (0.0-0.8); MONO % 3.8 % (2.0-8.0); NEUTROPHILS # 8.3 10^3/uL (1.5-8.5); NEUTROPHILS % 89.8 % (36.0-66.0); PLATELET COUNT, AUTOMATED 272 10^3/uL (150-450); RED BLOOD COUNT 3.23 10^6/uL (4.00-5.40); WHITE BLOOD COUNT 9.2 10^3/uL (4.0-10.0)
[2024-10-01] MEDS: LABETALOL 100MG/20ML VIAL IV ONE (05:30)
[2024-10-01] MEDS: hydrALAZINE 20MG/ML 1ML VIAL IV ONE (06:12)
[2024-10-01 06:24] LABS: ABG BASE EXCESS 0.2 (-2.0-2.0); ABG HCO3 27.8 MMOL/L (22.0-26.0); ABG PARTIAL PRESSURE O2 159.5 mmHg (75.0-100.0); ABG STANDARD HCO3 24.7 MMOL/L. (22.0-26.0); ABG TOTAL CO2 29.7 MMOL/L (23.0-31.0)
[2024-10-01 06:25] LABS: ABG PARTIAL PRESSURE CO2 60.6 mmHg (35.0-45.0)
[2024-10-01] MEDS: dexmedeTOMidine 200 MCG in IV 1 EA IV SCH (08:43)
[2024-10-01] MEDS: fentaNYL 100 MCG/2 ML INJECTION IV STA (09:22)
[2024-10-01] MEDS: MIDAZOLAM INJ 2MG/2ML VIAL IV STA (09:22)
[2024-10-01] MEDS: ROCURONIUM BROMIDE 50MG/5ML VIAL IV SCH (09:34)
[2024-10-01] MEDS ORDERED: FENTANYL DRIP LOCK BOX KEY 1 EACH XX PRN (09:40)
[2024-10-01] MEDS: fentaNYL CITRATE/NaCl 1,000 MCG in IV 1 EA IV SCH (10:04)
[2024-10-01] MEDS: propofoL 1,000 MG in IV 1 EA IV SCH (10:06)
[2024-10-01] MEDS: cefTRIAXone SOD 2 GM in DEXTROSE 5% (D5W) ADV/MINI-BAG 50 ML IV SCH (10:12)
[2024-10-01] MEDS: ETOMIDATE INJ 20MG/10ML VIAL IV STA (11:32)
[2024-10-01] MEDS: GLYCOPYRROLATE INJ 0.2 MG/ML 2 ML VIAL IV STA (11:32)
[2024-10-01] MEDS: MIDAZOLAM INJ 2MG/2ML VIAL IV PRN (11:32)
[2024-10-01 11:39] LABS: ABG BASE EXCESS 1.4 (-2.0-2.0); ABG HCO3 26.3 MMOL/L (22.0-26.0); ABG O2 SATURATION 98.2 % (95.0-99.0); ABG PARTIAL PRESSURE CO2 42.9 mmHg (35.0-45.0); ABG PARTIAL PRESSURE O2 119.1 mmHg (75.0-100.0); ABG STANDARD HCO3 25.7 MMOL/L. (22.0-26.0); ABG TOTAL CO2 27.6 MMOL/L (23.0-31.0); ABG pH (ARTERIAL) 7.405 UNITS (7.350-7.450)
[2024-10-01] MEDS ORDERED: DEXTROSE 50% 50ML SYRINGE IV PRN (12:15)
[2024-10-01] MEDS ORDERED: GLUCOSE 4 GM CHEW PO PRN (12:15)
[2024-10-01] MEDS ORDERED: GLUCAGON INJ 1MG VIAL SC PRN (12:15)
[2024-10-01] MEDS: INSULIN LISPRO (NovoLOG) PER UNIT SC SCH (13:08)
[2024-10-01] MEDS: CEFEPIME HCL 2 GM in DEXTROSE 5% (D5W) ADV/MINI-BAG 50 ML IV SCH (16:14)
[2024-10-01] MEDS: PANTOPRAZOLE 40MG VIAL IV SCH (18:00)
[2024-10-01] MEDS: IPRATROPIUM 0.5MG/ALBUTEROL 2.5MG INH SOL UD 3ML (DUONEB) NEB PRN (19:57)
[2024-10-02] VITALS (81 sets, daily range): BP systolic 84–210; BP diastolic 46–115; TEMP 97.1–98.2; O2SAT 65–97
[2024-10-02] MEDS ORDERED: MIDAZOLAM 100MG/100ML-0.9%NACL IV ONE (04:04)
[2024-10-02] MEDS: MIDAZOLAM 100MG/100ML-0.9%NACL 100 MG in IV 1 EA IV SCH (04:22)
[2024-10-02 05:17] LABS: HEMATOCRIT 28.2 % (36.0-47.0); HEMOGLOBIN 9.1 g/dl (12.0-15.5); MEAN CORPUSCULAR HEMOGLOBIN 30.2 pg (27.0-33.0); MEAN CORPUSCULAR HGB CONC 32.3 g/dl (32.0-36.5); MEAN CORPUSCULAR VOLUME 93.7 fl (80.0-96.0); PLATELET COUNT, AUTOMATED 275 10^3/uL (150-450); RED BLOOD COUNT 3.01 10^6/uL (4.00-5.40); WHITE BLOOD COUNT 10.7 10^3/uL (4.0-10.0)
[2024-10-02 05:33] LABS: ABG BASE EXCESS 2.4 (-2.0-2.0); ABG HCO3 25.4 MMOL/L (22.0-26.0); ABG PARTIAL PRESSURE CO2 33.2 mmHg (35.0-45.0); ABG PARTIAL PRESSURE O2 119.4 mmHg (75.0-100.0); ABG STANDARD HCO3 26.7 MMOL/L. (22.0-26.0); ABG TOTAL CO2 26.4 MMOL/L (23.0-31.0); ABG pH (ARTERIAL) 7.502 UNITS (7.350-7.450)
[2024-10-02 05:49] LABS: BLOOD UREA NITROGEN 46 MG/DL (9-23); CALCIUM LEVEL 8.8 MG/DL (8.3-10.6); CARBON DIOXIDE LEVEL 26 MMOL/L (20-31); CHLORIDE LEVEL 108 MMOL/L (98-107); CREATININE FOR GFR 0.85 MG/DL (0.55-1.30); GLOMERULAR FILTRATION RATE > 60.0 (>45); GLUCOSE, FASTING 338 MG/DL (74-106); POTASSIUM SERUM 5.2 MMOL/L (3.5-5.1); SODIUM LEVEL 143 MMOL/L (136-145)
[2024-10-02] MEDS: ENOXAPARIN 40MG/0.4ML SYRINGE (J1650 PER 10MG) SC SCH (08:30)
[2024-10-02] MEDS: QUEtiapine FUMARATE 25 MG TAB PO ONE (11:18)
[2024-10-02 17:21] LABS: ABG BASE EXCESS 2.5 (-2.0-2.0); ABG O2 SATURATION 95.8 % (95.0-99.0); ABG PARTIAL PRESSURE CO2 41.6 mmHg (35.0-45.0); ABG PARTIAL PRESSURE O2 82.4 mmHg (75.0-100.0); ABG STANDARD HCO3 26.6 MMOL/L. (22.0-26.0); ABG TOTAL CO2 28.3 MMOL/L (23.0-31.0)
[2024-10-02] MEDS: QUEtiapine FUMARATE 25 MG TAB PO SCH (20:23)
[2024-10-03] VITALS (66 sets, daily range): BP systolic 95–170; BP diastolic 49–93; TEMP 97.1–99.1; O2SAT 92–97
[2024-10-03 06:01] LABS: ABG BASE EXCESS -0.2 (-2.0-2.0); ABG HCO3 24.3 MMOL/L (22.0-26.0); ABG O2 SATURATION 94.4 % (95.0-99.0); ABG PARTIAL PRESSURE CO2 39.2 mmHg (35.0-45.0); ABG PARTIAL PRESSURE O2 76.2 mmHg (75.0-100.0); ABG STANDARD HCO3 24.3 MMOL/L. (22.0-26.0); ABG TOTAL CO2 25.5 MMOL/L (23.0-31.0); ABG pH (ARTERIAL) 7.411 UNITS (7.350-7.450)
[2024-10-03 08:51] LABS: HEMATOCRIT 28.6 % (36.0-47.0); HEMOGLOBIN 9.4 g/dl (12.0-15.5); MEAN CORPUSCULAR HEMOGLOBIN 30.7 pg (27.0-33.0); MEAN CORPUSCULAR HGB CONC 32.9 g/dl (32.0-36.5); MEAN CORPUSCULAR VOLUME 93.5 fl (80.0-96.0); PLATELET COUNT, AUTOMATED 291 10^3/uL (150-450); RED BLOOD COUNT 3.06 10^6/uL (4.00-5.40); WHITE BLOOD COUNT 10.6 10^3/uL (4.0-10.0)
[2024-10-03 08:59] LABS: ABG BASE EXCESS -0.5 (-2.0-2.0); ABG HCO3 24.4 MMOL/L (22.0-26.0); ABG O2 SATURATION 96.4 % (95.0-99.0); ABG PARTIAL PRESSURE CO2 41.1 mmHg (35.0-45.0); ABG PARTIAL PRESSURE O2 91.6 mmHg (75.0-100.0); ABG TOTAL CO2 25.6 MMOL/L (23.0-31.0); ABG pH (ARTERIAL) 7.391 UNITS (7.350-7.450)
[2024-10-03 09:25] LABS: ALBUMIN 2.6 G/DL (3.2-5.2); ALKALINE PHOSPHATASE 48 U/L (35-104); ALT/SGPT 16 U/L (7.0-40); AST/SGOT 18 U/L (<34); BILIRUBIN,TOTAL < 0.2 MG/DL (0.3-1.2); BLOOD UREA NITROGEN 41 MG/DL (9-23); CALCIUM LEVEL 8.5 MG/DL (8.3-10.6); CARBON DIOXIDE LEVEL 25 MMOL/L (20-31); CHLORIDE LEVEL 107 MMOL/L (98-107); CREATININE FOR GFR 0.75 MG/DL (0.55-1.30); GLOMERULAR FILTRATION RATE > 60.0 (>45); GLUCOSE, FASTING 384 MG/DL (74-106); MAGNESIUM LEVEL 2.2 MG/DL (1.8-2.4); PHOSPHORUS LEVEL 2.9 MG/DL (2.4-5.1); POTASSIUM SERUM 4.2 MMOL/L (3.5-5.1); SODIUM LEVEL 143 MMOL/L (136-145); TOTAL PROTEIN 5.5 G/DL (5.7-8.2)
[2024-10-03] MEDS: CEFEPIME HCL 2 GM in DEXTROSE 5% (D5W) ADV/MINI-BAG 50 ML IV SCH (11:21)
[2024-10-03] MEDS: MIDAZOLAM 100MG/100ML-0.9%NACL 100 MG in IV 1 EA IV SCH (19:00)
[2024-10-03] MEDS: fentaNYL CITRATE/NaCl 1,000 MCG in IV 1 EA IV SCH (19:00)
[2024-10-03] MEDS: propofoL 1,000 MG in IV 1 EA IV SCH (20:44)
[2024-10-03] MEDS: QUEtiapine FUMARATE 25 MG TAB PO SCH (20:50)
[2024-10-04] VITALS (38 sets, daily range): BP systolic 106–180; BP diastolic 56–99; TEMP 97.3–99.6; O2SAT 93–98
[2024-10-04 04:47] LABS: BASO % 0.1 % (0.0-1.0); HEMATOCRIT 30.8 % (36.0-47.0); HEMOGLOBIN 10.1 g/dl (12.0-15.5); LYMPH # 0.6 10^3/uL (1.5-5.0); LYMPH % 5.9 % (24.0-44.0); MEAN CORPUSCULAR HEMOGLOBIN 30.6 pg (27.0-33.0); MEAN CORPUSCULAR HGB CONC 32.8 g/dl (32.0-36.5); MEAN CORPUSCULAR VOLUME 93.3 fl (80.0-96.0); MONO # 0.7 10^3/uL (0.0-0.8); MONO % 7.5 % (2.0-8.0); NEUTROPHILS # 8.1 10^3/uL (1.5-8.5); NEUTROPHILS % 82.5 % (36.0-66.0); PLATELET COUNT, AUTOMATED 313 10^3/uL (150-450); WHITE BLOOD COUNT 9.8 10^3/uL (4.0-10.0)
[2024-10-04 05:14] LABS: BLOOD UREA NITROGEN 42 MG/DL (9-23); CALCIUM LEVEL 8.4 MG/DL (8.3-10.6); CARBON DIOXIDE LEVEL 28 MMOL/L (20-31); CHLORIDE LEVEL 107 MMOL/L (98-107); CREATININE FOR GFR 0.69 MG/DL (0.55-1.30); GLOMERULAR FILTRATION RATE > 60.0 (>45); GLUCOSE, FASTING 398 MG/DL (74-106); POTASSIUM SERUM 5.1 MMOL/L (3.5-5.1); SODIUM LEVEL 141 MMOL/L (136-145)
[2024-10-04 06:09] LABS: ABG BASE EXCESS 1.3 (-2.0-2.0); ABG HCO3 26.8 MMOL/L (22.0-26.0); ABG O2 SATURATION 98.1 % (95.0-99.0); ABG PARTIAL PRESSURE CO2 46.4 mmHg (35.0-45.0); ABG PARTIAL PRESSURE O2 131.6 mmHg (75.0-100.0); ABG STANDARD HCO3 25.6 MMOL/L. (22.0-26.0); ABG TOTAL CO2 28.2 MMOL/L (23.0-31.0); ABG pH (ARTERIAL) 7.379 UNITS (7.350-7.450)
[2024-10-04] MEDS: LEVEMIR (INSULIN DETEMIR) 1 UNITS/0.01ML SC SCH (10:07)
[2024-10-04] MEDS: AZITHROMYCIN SUSP 200MG/5ML 30ML BOTTLE PO ONE (12:39)
[2024-10-04] MEDS: IPRATROPIUM 0.5MG/ALBUTEROL 2.5MG INH SOL UD 3ML (DUONEB) NEB SCH (12:41)
[2024-10-04] MEDS: GLYCOPYRROLATE INJ 0.2 MG/ML 2 ML VIAL NEB SCH (12:42)
[2024-10-05] VITALS (8 sets, daily range): BP systolic 101–165; BP diastolic 67–79; TEMP 97.1–99.3; O2SAT 94–98
[2024-10-05 05:07] LABS: ALBUMIN 2.6 G/DL (3.2-5.2); ALKALINE PHOSPHATASE 46 U/L (35-104); ALT/SGPT 17 U/L (7.0-40); AST/SGOT 18 U/L (<34); BILIRUBIN,TOTAL 0.3 MG/DL (0.3-1.2); BLOOD UREA NITROGEN 35 MG/DL (9-23); CALCIUM LEVEL 9.4 MG/DL (8.3-10.6); CARBON DIOXIDE LEVEL 32 MMOL/L (20-31); CHLORIDE LEVEL 107 MMOL/L (98-107); GLOMERULAR FILTRATION RATE > 60.0 (>45); GLUCOSE, FASTING 136 MG/DL (74-106); PHOSPHORUS LEVEL 2.5 MG/DL (2.4-5.1); POTASSIUM SERUM 4.1 MMOL/L (3.5-5.1); SODIUM LEVEL 146 MMOL/L (136-145); TOTAL PROTEIN 5.9 G/DL (5.7-8.2)
[2024-10-05] MEDS: methylPREDNISolone 125MG 2ML VIAL IV SCH (09:05)
[2024-10-06 03:52] VITALS: BP 150/86; TEMP 97.9; O2SAT 94
[2024-10-06] MEDS: AZITHROMYCIN 250MG TABLET PO ONE (08:41)
[2024-10-06] MEDS: INSULIN LISPRO (NovoLOG) PER UNIT SC SCH (08:42)
[2024-10-06 12:00] VITALS: BP 124/84; TEMP 98.1; O2SAT 97
[2024-10-06 20:36] VITALS: BP 126/84; TEMP 97.7; O2SAT 96
[2024-10-06] MEDS: QUEtiapine FUMARATE 100 MG TAB PO SCH (21:00)
[2024-10-07 05:00] VITALS: BP 128/80; TEMP 97.7; O2SAT 97
[2024-10-07 07:43] LABS: BASO % 0.2 % (0.0-1.0); EOS # 0.1 10^3/uL (0.0-0.5); EOS % 1.1 % (0.0-3.0); HEMATOCRIT 37.3 % (36.0-47.0); HEMOGLOBIN 11.8 g/dl (12.0-15.5); LYMPH # 1.8 10^3/uL (1.5-5.0); LYMPH % 20.7 % (24.0-44.0); MEAN CORPUSCULAR HEMOGLOBIN 29.3 pg (27.0-33.0); MEAN CORPUSCULAR HGB CONC 31.6 g/dl (32.0-36.5); MEAN CORPUSCULAR VOLUME 92.6 fl (80.0-96.0); MONO # 1.2 10^3/uL (0.0-0.8); MONO % 13.9 % (2.0-8.0); NEUTROPHILS # 5.5 10^3/uL (1.5-8.5); NEUTROPHILS % 61.9 % (36.0-66.0); PLATELET COUNT, AUTOMATED 345 10^3/uL (150-450); RED BLOOD COUNT 4.03 10^6/uL (4.00-5.40); WHITE BLOOD COUNT 8.8 10^3/uL (4.0-10.0)
[2024-10-07 07:56] LABS: BLOOD UREA NITROGEN 25 MG/DL (9-23); CALCIUM LEVEL 9.7 MG/DL (8.3-10.6); CARBON DIOXIDE LEVEL 28 MMOL/L (20-31); CHLORIDE LEVEL 104 MMOL/L (98-107); CREATININE FOR GFR 0.51 MG/DL (0.55-1.30); GLOMERULAR FILTRATION RATE > 60.0 (>45); GLUCOSE, FASTING 158 MG/DL (74-106); POTASSIUM SERUM 4.3 MMOL/L (3.5-5.1); SODIUM LEVEL 144 MMOL/L (136-145)
[2024-10-07] MEDS ORDERED: ALPRAZolam 0.25 MG TAB PO PRN (11:35)
[2024-10-07 12:00] VITALS: BP 130/82; TEMP 97.9; O2SAT 97
[2024-10-07 20:00] VITALS: BP 131/85; TEMP 97.7; O2SAT 98
[2024-10-08 04:00] VITALS: BP 130/84; TEMP 97.5; O2SAT 99
[2024-10-08 05:59] LABS: BASO % 0.3 % (0.0-1.0); EOS # 0.1 10^3/uL (0.0-0.5); HEMATOCRIT 37.2 % (36.0-47.0); HEMOGLOBIN 11.6 g/dl (12.0-15.5); LYMPH # 1.7 10^3/uL (1.5-5.0); LYMPH % 19.9 % (24.0-44.0); MEAN CORPUSCULAR HEMOGLOBIN 29.2 pg (27.0-33.0); MEAN CORPUSCULAR HGB CONC 31.2 g/dl (32.0-36.5); MEAN CORPUSCULAR VOLUME 93.7 fl (80.0-96.0); MONO # 1.2 10^3/uL (0.0-0.8); NEUTROPHILS # 5.4 10^3/uL (1.5-8.5); NEUTROPHILS % 62.6 % (36.0-66.0); PLATELET COUNT, AUTOMATED 302 10^3/uL (150-450); RED BLOOD COUNT 3.97 10^6/uL (4.00-5.40); WHITE BLOOD COUNT 8.7 10^3/uL (4.0-10.0)
[2024-10-08 06:20] LABS: BLOOD UREA NITROGEN 29 MG/DL (9-23); CALCIUM LEVEL 9.1 MG/DL (8.3-10.6); CARBON DIOXIDE LEVEL 28 MMOL/L (20-31); CHLORIDE LEVEL 104 MMOL/L (98-107); CREATININE FOR GFR 0.65 MG/DL (0.55-1.30); GLOMERULAR FILTRATION RATE > 60.0 (>45); GLUCOSE, FASTING 170 MG/DL (74-106); POTASSIUM SERUM 4.5 MMOL/L (3.5-5.1); SODIUM LEVEL 142 MMOL/L (136-145)
[2024-10-08] MEDS: AZITHROMYCIN 250MG TABLET PO SCH (09:06)
[2024-10-08] MEDS: ALPRAZolam 0.25 MG TAB PO SCH (09:06)
[2024-10-08] MEDS: NICOTINE 14 MG/24 HR TRANSDERMAL TD SCH (09:59)
[2024-10-08 12:00] VITALS: BP 136/81; TEMP 97.8; O2SAT 92
[2024-10-08 13:35] LABS: ABG BASE EXCESS 1.5 (-2.0-2.0); ABG HCO3 25.2 MMOL/L (22.0-26.0); ABG O2 SATURATION 98.7 % (95.0-99.0); ABG PARTIAL PRESSURE CO2 36.8 mmHg (35.0-45.0); ABG STANDARD HCO3 25.8 MMOL/L. (22.0-26.0); ABG TOTAL CO2 26.4 MMOL/L (23.0-31.0); ABG pH (ARTERIAL) 7.454 UNITS (7.350-7.450)
[2024-10-08 20:50] VITALS: BP 120/70; TEMP 97.9; O2SAT 96
[2024-10-09] MEDS: ACETAMINOPHEN *IV* 1,000 MG in IV 1 EA IV ONE (02:37)
[2024-10-09 03:50] VITALS: BP 144/74; TEMP 97.7; O2SAT 97
[2024-10-09 06:02] LABS: BASO % 0.3 % (0.0-1.0); EOS # 0.1 10^3/uL (0.0-0.5); EOS % 1.6 % (0.0-3.0); LYMPH # 1.6 10^3/uL (1.5-5.0); LYMPH % 21.4 % (24.0-44.0); MEAN CORPUSCULAR HEMOGLOBIN 29.6 pg (27.0-33.0); MEAN CORPUSCULAR HGB CONC 31.6 g/dl (32.0-36.5); MEAN CORPUSCULAR VOLUME 93.6 fl (80.0-96.0); MONO # 1.1 10^3/uL (0.0-0.8); NEUTROPHILS # 4.6 10^3/uL (1.5-8.5); NEUTROPHILS % 60.5 % (36.0-66.0); PLATELET COUNT, AUTOMATED 321 10^3/uL (150-450); RED BLOOD COUNT 4.06 10^6/uL (4.00-5.40); WHITE BLOOD COUNT 7.6 10^3/uL (4.0-10.0)
[2024-10-09 06:21] LABS: BLOOD UREA NITROGEN 28 MG/DL (9-23); CALCIUM LEVEL 9.2 MG/DL (8.3-10.6); CARBON DIOXIDE LEVEL 26 MMOL/L (20-31); CHLORIDE LEVEL 104 MMOL/L (98-107); CREATININE FOR GFR 0.56 MG/DL (0.55-1.30); GLOMERULAR FILTRATION RATE > 60.0 (>45); GLUCOSE, FASTING 143 MG/DL (74-106); POTASSIUM SERUM 4.3 MMOL/L (3.5-5.1); SODIUM LEVEL 141 MMOL/L (136-145)
[2024-10-09] MEDS ORDERED: ACETAMINOPHEN 500 MG TAB PO PRN (08:00)
[2024-10-09] MEDS: COMBIVENT RESPIMAT 100-20MCG INHALER 4GM INH SCH (08:00)
[2024-10-09] MEDS: SYMBICORT 160/4.5MCG INHALER 6GM INH SCH (08:00)
[2024-10-09] MEDS ORDERED: ACETAMINOPHEN 325 MG TAB PO PRN (08:00)
[2024-10-09] MEDS ORDERED: ALBUTEROL 90 MCG/ACT 8GM HFA INHALER INH PRN ×2 (09:50→10:03)
[2024-10-09] MEDS ORDERED: NITROGLYCERIN 0.4MG SUBL TABLET SL PRN (09:50)
[2024-10-09] MEDS ORDERED: COMBIVENT RESPIMAT 100-20MCG INHALER 4GM INH SCH (09:59)
[2024-10-09] MEDS ORDERED: SYMBICORT 160/4.5MCG INHALER 6GM INH SCH (10:00)
[2024-10-09] MEDS: FUROSEMIDE 20 MG TAB PO SCH (10:14)
[2024-10-09] MEDS: EZETIMIBE 10MG TABLET (ZETIA) PO SCH (10:14)
[2024-10-09] MEDS: METOPROLOL TART 25 MG TABLET PO SCH (10:15)
[2024-10-09] MEDS ORDERED: PILL CUTTER 1 EACH XX ONE (10:19)
[2024-10-09 12:00] VITALS: BP 134/61; TEMP 97.7; O2SAT 99
[2024-10-09] MEDS: GABAPENTIN 100 MG CAP PO SCH (12:59)
[2024-10-09 20:40] VITALS: BP 103/58; TEMP 97.9; O2SAT 96
[2024-10-09] MEDS: ATORVASTATIN 20 MG TAB PO SCH (21:15)
[2024-10-09] MEDS: QUEtiapine FUMARATE 50MG TAB PO SCH (21:20)
[2024-10-09] MEDS: ALPRAZolam 0.25 MG TAB PO PRN (21:21)
[2024-10-10 03:50] VITALS: BP 80/58; TEMP 97.3; O2SAT 98
[2024-10-10 04:37] VITALS: BP 100/50
[2024-10-10 06:02] LABS: BASO % 0.3 % (0.0-1.0); EOS # 0.1 10^3/uL (0.0-0.5); EOS % 1.1 % (0.0-3.0); HEMATOCRIT 30.9 % (36.0-47.0); HEMOGLOBIN 9.7 g/dl (12.0-15.5); LYMPH # 1.7 10^3/uL (1.5-5.0); LYMPH % 24.6 % (24.0-44.0); MEAN CORPUSCULAR HEMOGLOBIN 29.6 pg (27.0-33.0); MEAN CORPUSCULAR HGB CONC 31.4 g/dl (32.0-36.5); MEAN CORPUSCULAR VOLUME 94.2 fl (80.0-96.0); MONO # 1.1 10^3/uL (0.0-0.8); MONO % 15.3 % (2.0-8.0); NEUTROPHILS % 56.3 % (36.0-66.0); PLATELET COUNT, AUTOMATED 290 10^3/uL (150-450); RED BLOOD COUNT 3.28 10^6/uL (4.00-5.40); WHITE BLOOD COUNT 7.1 10^3/uL (4.0-10.0)
[2024-10-10 06:35] LABS: CREATININE FOR GFR 1.55 MG/DL (0.55-1.30); GLOMERULAR FILTRATION RATE 35.4 (>45); POTASSIUM SERUM 4.1 MMOL/L (3.5-5.1)
[2024-10-10] MEDS: IPRATROPIUM 0.5MG/ALBUTEROL 2.5MG INH SOL UD 3ML (DUONEB) NEB SCH (09:00)
[2024-10-10 09:50] VITALS: BP 104/52
[2024-10-10] MEDS: NS (Normal Saline) 0.9% 1,000 ML IV SCH (09:57)
[2024-10-10 12:00] VITALS: BP 93/50; TEMP 97.5; O2SAT 98
[2024-10-10] MEDS: LACTOBACILLUS ACIDOPHILUS CAP (BACID) PO SCH (18:42)
[2024-10-10 20:01] VITALS: BP 96/55; TEMP 97.7; O2SAT 100
[2024-10-10] MEDS: QUEtiapine FUMARATE 25 MG TAB PO SCH (20:36)
[2024-10-11 03:39] VITALS: BP 101/60; TEMP 97.7; O2SAT 100
[2024-10-11 05:51] LABS: BASO % 0.4 % (0.0-1.0); EOS # 0.1 10^3/uL (0.0-0.5); HEMATOCRIT 31.7 % (36.0-47.0); HEMOGLOBIN 9.7 g/dl (12.0-15.5); LYMPH # 1.7 10^3/uL (1.5-5.0); LYMPH % 22.1 % (24.0-44.0); MEAN CORPUSCULAR HEMOGLOBIN 29.6 pg (27.0-33.0); MEAN CORPUSCULAR HGB CONC 30.6 g/dl (32.0-36.5); MEAN CORPUSCULAR VOLUME 96.6 fl (80.0-96.0); MONO # 1.3 10^3/uL (0.0-0.8); MONO % 16.4 % (2.0-8.0); NEUTROPHILS # 4.4 10^3/uL (1.5-8.5); NEUTROPHILS % 56.8 % (36.0-66.0); PLATELET COUNT, AUTOMATED 262 10^3/uL (150-450); RED BLOOD COUNT 3.28 10^6/uL (4.00-5.40); WHITE BLOOD COUNT 7.8 10^3/uL (4.0-10.0)
[2024-10-11 06:25] LABS: CALCIUM LEVEL 8.7 MG/DL (8.3-10.6); CREATININE FOR GFR 1.51 MG/DL (0.55-1.30); GLOMERULAR FILTRATION RATE 36.5 (>45)
[2024-10-11] MEDS: PANTOPRAZOLE 40MG TAB (PROTONIX) PO SCH (09:01)
[2024-10-11] MEDS: LIDOCAINE 5% (LIDODERM) PATCH TD SCH (11:08)
[2024-10-11] MEDS: ACETAMINOPHEN 500 MG TAB PO SCH (11:08)
[2024-10-11] MEDS: DULoxetine 30MG CAPSULE (CYMBALTA) PO SCH (11:11)
[2024-10-11 11:20] VITALS: O2SAT 96
[2024-10-11 12:00] VITALS: BP 143/80; TEMP 97.9; O2SAT 98
[2024-10-11 12:41] LABS: APPEARANCE, URINE HAZY (CLEAR); BACTERIA, URINE AUTO 1+ (NEGATIVE); BILIRUBIN, URINE AUTO NEGATIVE (NEGATIVE); BLOOD, URINE BLOOD NEGATIVE (NEGATIVE); COLOR, URINE YELLOW (YELLOW); GLUCOSE, URINE (UA) AUTO 3+ mg/dL (NEGATIVE); KETONE, URINE AUTO NEGATIVE (NEGATIVE); LEUKOCYTE ESTERASE, URINE AUTO 2+ (NEGATIVE); NITRITE, URINE AUTO NEGATIVE (NEGATIVE); PROTEIN, URINE AUTO NEGATIVE (NEGATIVE); RBC, URINE AUTO 26 /HPF (0-3); SPECIFIC GRAVITY URINE AUTO 1.012 (1.002-1.035); SQUAMOUS EPITHELIAL CELL UR AU 4 /HPF (0-6); UROBILINOGEN, URINE AUTO 0.2 mg/dL (0.0-2.0); WBC, URINE AUTO 58 /HPF (0-3)
[2024-10-11 12:42] LABS: SODIUM,RANDOM URINE 42 MMOL/L
[2024-10-11 12:49] LABS: UREA NITROGEN RANDOM URINE 582 MG/DL
[2024-10-11 13:00] VITALS: O2SAT 95
[2024-10-11] MEDS: GABAPENTIN 300 MG CAP PO SCH (13:48)
[2024-10-11] MEDS: FLUCONAZOLE 50MG TABLET PO ONE (14:12)
[2024-10-11 15:09] VITALS: O2SAT 96
[2024-10-11 18:10] LABS: BLOOD UREA NITROGEN 37 MG/DL (9-23); CALCIUM LEVEL 8.4 MG/DL (8.3-10.6); CARBON DIOXIDE LEVEL 23 MMOL/L (20-31); CHLORIDE LEVEL 109 MMOL/L (98-107); CREATININE FOR GFR 0.88 MG/DL (0.55-1.30); GLOMERULAR FILTRATION RATE > 60.0 (>45); GLUCOSE, FASTING 373 MG/DL (74-106); POTASSIUM SERUM 3.8 MMOL/L (3.5-5.1); SODIUM LEVEL 142 MMOL/L (136-145)
[2024-10-11 20:00] VITALS: BP 138/76; TEMP 97.9; O2SAT 99
[2024-10-12 04:00] VITALS: BP 136/78; TEMP 97.9; O2SAT 95
[2024-10-12 06:03] LABS: BASO # 0.1 10^3/uL (0.0-0.2); BASO % 0.7 % (0.0-1.0); EOS # 0.1 10^3/uL (0.0-0.5); EOS % 1.4 % (0.0-3.0); HEMATOCRIT 32.8 % (36.0-47.0); HEMOGLOBIN 10.2 g/dl (12.0-15.5); LYMPH # 1.5 10^3/uL (1.5-5.0); MEAN CORPUSCULAR HEMOGLOBIN 29.7 pg (27.0-33.0); MEAN CORPUSCULAR HGB CONC 31.1 g/dl (32.0-36.5); MEAN CORPUSCULAR VOLUME 95.6 fl (80.0-96.0); MONO % 14.4 % (2.0-8.0); NEUTROPHILS # 4.3 10^3/uL (1.5-8.5); NEUTROPHILS % 60.3 % (36.0-66.0); PLATELET COUNT, AUTOMATED 304 10^3/uL (150-450); RED BLOOD COUNT 3.43 10^6/uL (4.00-5.40); WHITE BLOOD COUNT 7.1 10^3/uL (4.0-10.0)
[2024-10-12 06:23] LABS: BLOOD UREA NITROGEN 23 MG/DL (9-23); CALCIUM LEVEL 8.3 MG/DL (8.3-10.6); CARBON DIOXIDE LEVEL 24 MMOL/L (20-31); CHLORIDE LEVEL 115 MMOL/L (98-107); GLOMERULAR FILTRATION RATE > 60.0 (>45); GLUCOSE, FASTING 195 MG/DL (74-106); POTASSIUM SERUM 4.1 MMOL/L (3.5-5.1); SODIUM LEVEL 148 MMOL/L (136-145)
[2024-10-12 07:55] VITALS: O2SAT 97
[2024-10-12] MEDS ORDERED: FLUCONAZOLE 50MG TABLET PO SCH (09:00)
[2024-10-12] MEDS: FLUCONAZOLE 50MG TABLET PO SCH (11:52)
[2024-10-12] MEDS: GABAPENTIN 400MG CAP PO SCH (11:53)
[2024-10-12 19:55] VITALS: BP 140/72; TEMP 97.5; O2SAT 93
[2024-10-12] MEDS: QUEtiapine FUMARATE 25 MG TAB PO SCH (20:28)
[2024-10-13 03:56] VITALS: BP 158/80; TEMP 98.1; O2SAT 93
[2024-10-13] MEDS: FUROSEMIDE 20 MG TAB PO SCH (08:33)
[2024-10-13] MEDS: METOPROLOL TART 12.5 MG PER 1/2 TAB PO SCH (08:40)
[2024-10-13] MEDS: ONDANSETRON 4MG ORAL DISINTEGRATING TAB SL PRN (08:48)
[2024-10-13 11:22] VITALS: BP 146/45; TEMP 97; O2SAT 93
[2024-10-14 03:10] VITALS: BP 148/67; TEMP 98.1; O2SAT 94
[2024-10-14] MEDS: NORCO, ANEXSIA 5/325MG TABLET (HYDROcodone/ACETAMINOPHEN) PO PRN (15:03)
[2024-10-15 03:38] VITALS: BP 145/65; TEMP 97.7; O2SAT 94
[2024-10-15] MEDS: GABAPENTIN 400MG CAP PO SCH (09:01)
[2024-10-15] MEDS: FUROSEMIDE 20 MG TAB PO ONE (09:09)
[2024-10-15] MEDS: GABAPENTIN 300 MG CAP PO SCH (11:32)
[2024-10-16 04:00] VITALS: BP 145/75; TEMP 97.7; O2SAT 94
[2024-10-16 09:51] VITALS: BP 146/72
[2024-10-16] MEDS ORDERED: ALPR0.5T3 PO (10:09)
[2024-10-16] MEDS ORDERED: SERO1TAB3 PO (10:09)
== END 2024-10-16 11:06 | disposition home or self-care (01) | DRG 871 ==
LOC: M ED 08:44 → EDBD 08:44 → M ED INP 12:11 → M ICU 12:42 → M MSPAV 10-05 22:00
PROVIDERS: ADMIT Internal Medicine Pulmonary Disease; ATTEND Internal Medicine
PROC: 0BH17EZ Insertion of Endotracheal Airway into Trachea, Via Natural or Artificial Opening (ICD-10-PCS; principal; 2024-10-01)
PROC: 5A1945Z Respiratory Ventilation, 24-96 Consecutive Hours (ICD-10-PCS; 2024-10-01)
DX: A41.9 Sepsis, unspecified organism (principal); J96.21 Acute and chronic respiratory failure with hypoxia; J96.02 Acute respiratory failure with hypercapnia; J18.9 Pneumonia, unspecified organism; G93.41 Metabolic encephalopathy; N39.0 Urinary tract infection, site not specified; J44.1 Chronic obstructive pulmonary disease with (acute) exacerbation; J44.0 Chronic obstructive pulmonary disease with (acute) lower respiratory infection; N17.9 Acute kidney failure, unspecified; I50.32 Chronic diastolic (congestive) heart failure; E11.65 Type 2 diabetes mellitus with hyperglycemia; E78.5 Hyperlipidemia, unspecified; Z99.81 Dependence on supplemental oxygen; I25.10 Atherosclerotic heart disease of native coronary artery without angina pectoris; G47.33 Obstructive sleep apnea (adult) (pediatric); I11.0 Hypertensive heart disease with heart failure; K21.9 Gastro-esophageal reflux disease without esophagitis; F32.A Depression, unspecified; F41.9 Anxiety disorder, unspecified; Z86.16 Personal history of COVID-19; Z90.79 Acquired absence of other genital organ(s); E87.5 Hyperkalemia; R65.20 Severe sepsis without septic shock; Z68.36 Body mass index [BMI] 36.0-36.9, adult; E66.9 Obesity, unspecified; G89.29 Other chronic pain; Z79.899 Other long term (current) drug therapy; Z79.51 Long term (current) use of inhaled steroids; Z79.4 Long term (current) use of insulin; Z79.84 Long term (current) use of oral hypoglycemic drugs

== ENCOUNTER 2024-10-22 15:06 | Inpatient (IN) | payer MEDICARE, MEDICAID ==
[~2024-10-22] VITALS: Ht 165.1 cm; Wt 92.5 kg
[~2024-10-22 15:06] MED LIST changes: +FLUC150T9 PO; +FURO20TA2 PO; +SERO1TAB3 PO
[2024-10-22] MEDS: methylPREDNISolone 125MG 2ML VIAL IV ONE (16:04)
[2024-10-22 16:11] LABS: VENOUS BASE EXCESS 3.5 (-2.0-2.0); VENOUS HCO3 27.5 MMOL/L (23.0-27.0); VENOUS PARTIAL PRESSURE CO2 39.7 mmHg (38.0-50.0); VENOUS PARTIAL PRESSURE O2 104.7 mmHg (30.0-50.0); VENOUS PH 7.459 UNITS (7.330-7.430); VENOUS STANDARD HCO3 27.6 MMOL/L; VENOUS TOTAL CO2 28.8 MMOL/L (24.0-28.0)
[2024-10-22] MEDS: IPRATROPIUM 0.5MG/ALBUTEROL 2.5MG INH SOL UD 3ML (DUONEB) NEB ONE (16:13)
[2024-10-22 16:25] LABS: BASO # 0.1 10^3/uL (0.0-0.2); BASO % 0.7 % (0.0-1.0); EOS # 0.1 10^3/uL (0.0-0.5); HEMATOCRIT 35.6 % (36.0-47.0); HEMOGLOBIN 11.2 g/dl (12.0-15.5); LYMPH # 1.9 10^3/uL (1.5-5.0); LYMPH % 26.9 % (24.0-44.0); MEAN CORPUSCULAR HEMOGLOBIN 29.2 pg (27.0-33.0); MEAN CORPUSCULAR HGB CONC 31.5 g/dl (32.0-36.5); MEAN CORPUSCULAR VOLUME 92.7 fl (80.0-96.0); MONO # 0.9 10^3/uL (0.0-0.8); MONO % 12.6 % (2.0-8.0); NEUTROPHILS % 57.2 % (36.0-66.0); PLATELET COUNT, AUTOMATED 366 10^3/uL (150-450); RED BLOOD COUNT 3.84 10^6/uL (4.00-5.40); WHITE BLOOD COUNT 6.9 10^3/uL (4.0-10.0)
[2024-10-22 16:37] LABS: CPK CREATINE PHOSPHOKINASE 42 U/L (34-145); MB/CK RELATIVE INDEX 2.38 (< OR =4)
[2024-10-22 16:38] LABS: THYROID STIMULATING HORMONE 0.376 uIU/ML (0.55-4.78)
[2024-10-22 16:39] LABS: ALBUMIN 3.4 G/DL (3.2-5.2); ALKALINE PHOSPHATASE 79 U/L (35-104); ALT/SGPT 26 U/L (7.0-40); AST/SGOT 18 U/L (<34); BILIRUBIN,DIRECT < 0.1 MG/DL (<0.4); BILIRUBIN,TOTAL 0.3 MG/DL (0.3-1.2); BLOOD UREA NITROGEN 18 MG/DL (9-23); CALCIUM LEVEL 10.1 MG/DL (8.3-10.6); CARBON DIOXIDE LEVEL 36 MMOL/L (20-31); CHLORIDE LEVEL 99 MMOL/L (98-107); CREATININE FOR GFR 0.83 MG/DL (0.55-1.30); GLOMERULAR FILTRATION RATE > 60.0 (>45); GLUCOSE, FASTING 170 MG/DL (74-106); POTASSIUM SERUM 3.9 MMOL/L (3.5-5.1); SODIUM LEVEL 142 MMOL/L (136-145); TOTAL PROTEIN 6.4 G/DL (5.7-8.2)
[2024-10-22 17:25] LABS: KETONE, URINE AUTO RFX NEGATIVE (NEGATIVE); NITRITE, URINE AUTO RFX NEGATIVE (NEGATIVE); RBC, URINE AUTO RFX 2 /HPF (0-3); SQUAM EPITHELIAL CELL UR AURFX 5 /HPF (0-6)
[2024-10-22 17:26] LABS: LEUKOCYTE ESTERASE UR AUTO RFX 1+ (NEGATIVE); WBC, URINE AUTO RFX 23 /HPF (0-3)
[2024-10-22 18:20] LABS: CK-MB VALUE MASS < 1.0 NG/ML (<3.6); CPK CREATINE PHOSPHOKINASE 32 U/L (34-145); MB/CK RELATIVE INDEX 3.12 (< OR =4)
[2024-10-22] MEDS: CEFEPIME HCL 2 GM in DEXTROSE 5% (D5W) ADV/MINI-BAG 50 ML IV ONE (19:10)
[2024-10-22] MEDS ORDERED: QUET1TAB17 PO (19:55)
[2024-10-22] MEDS ORDERED: HOME MED LIST COMPLETE! XX SCH (20:00)
[2024-10-22] MEDS ORDERED: ALBUTEROL 90 MCG/ACT 8GM HFA INHALER INH PRN (20:55)
[2024-10-22] MEDS ORDERED: NITROGLYCERIN 0.4MG SUBL TABLET SL PRN (20:55)
[2024-10-22] MEDS ORDERED: ACETAMINOPHEN 325 MG TAB PO PRN ×2 (21:05)
[2024-10-22] MEDS: ALBUTEROL SULFATE 2.5MG/0.5ML INH NEB SOLN INH PRN (21:17)
[2024-10-22 21:22] LABS: PROCALCITONIN 0.12 ng/ml
[2024-10-22] MEDS: ATORVASTATIN 20 MG TAB PO SCH (21:52)
[2024-10-22] MEDS: GABAPENTIN 300 MG CAP PO SCH (21:52)
[2024-10-22] MEDS: METOPROLOL TART 12.5 MG PER 1/2 TAB PO SCH (21:53)
[2024-10-23] VITALS (9 sets, daily range): BP systolic 121–150; BP diastolic 66–80; TEMP 97.3–97.9; O2SAT 90–95
[2024-10-23] MEDS: ALPRAZolam 0.5 MG TAB PO PRN (00:16)
[2024-10-23] MEDS: PERCOCET 5MG/325MG TAB PO PRN (00:17)
[2024-10-23] MEDS: VANCOMYCIN 1,750 MG/350 ML IV BAG *LOAD IV ONE (00:31)
[2024-10-23] MEDS: guaiFENesin ER TABLET 600 MG TAB PO SCH (01:26)
[2024-10-23 05:15] LABS: HEMATOCRIT 30.3 % (36.0-47.0); HEMOGLOBIN 9.6 g/dl (12.0-15.5); MEAN CORPUSCULAR HEMOGLOBIN 29.9 pg (27.0-33.0); MEAN CORPUSCULAR HGB CONC 31.7 g/dl (32.0-36.5); MEAN CORPUSCULAR VOLUME 94.4 fl (80.0-96.0); PLATELET COUNT, AUTOMATED 319 10^3/uL (150-450); RED BLOOD COUNT 3.21 10^6/uL (4.00-5.40); WHITE BLOOD COUNT 10.1 10^3/uL (4.0-10.0)
[2024-10-23] MEDS ORDERED: DEXTROSE 50% 50ML SYRINGE IV PRN (05:40)
[2024-10-23] MEDS ORDERED: GLUCAGON INJ 1MG VIAL SC PRN (05:40)
[2024-10-23] MEDS ORDERED: GLUCOSE 4 GM CHEW PO PRN (05:40)
[2024-10-23] MEDS: CEFEPIME HCL 1 GM in DEXTROSE 5% (D5W) ADV/MINI-BAG 50 ML IV SCH (05:45)
[2024-10-23 05:55] LABS: ALBUMIN 2.9 G/DL (3.2-5.2); ALKALINE PHOSPHATASE 71 U/L (35-104); ALT/SGPT 24 U/L (7.0-40); AST/SGOT 12 U/L (<34); BILIRUBIN,TOTAL 0.3 MG/DL (0.3-1.2); BLOOD UREA NITROGEN 20 MG/DL (9-23); CALCIUM LEVEL 8.8 MG/DL (8.3-10.6); CARBON DIOXIDE LEVEL 31 MMOL/L (20-31); CHLORIDE LEVEL 98 MMOL/L (98-107); CREATININE FOR GFR 0.68 MG/DL (0.55-1.30); GLOMERULAR FILTRATION RATE > 60.0 (>45); GLUCOSE, FASTING 410 MG/DL (74-106); MAGNESIUM LEVEL 0.9 MG/DL (1.8-2.4); POTASSIUM SERUM 4.3 MMOL/L (3.5-5.1); SODIUM LEVEL 138 MMOL/L (136-145); TOTAL PROTEIN 5.6 G/DL (5.7-8.2)
[2024-10-23] MEDS: INSULIN LISPRO (NovoLOG) PER UNIT SC STA (06:26)
[2024-10-23] MEDS: MAG SULF 1GM/100ML (MAG RUN) 1 GM in IV 1 EA IV SCH ×2 (06:27→09:48)
[2024-10-23] MEDS: INSULIN LISPRO (NovoLOG) PER UNIT SC SCH ×2 (08:00→21:00)
[2024-10-23] MEDS: QUEtiapine FUMARATE 25 MG TAB PO SCH (08:06)
[2024-10-23] MEDS: EZETIMIBE 10MG TABLET (ZETIA) PO SCH (08:06)
[2024-10-23] MEDS: FUROSEMIDE 20 MG TAB PO SCH (08:07)
[2024-10-23] MEDS: ENOXAPARIN 40MG/0.4ML SYRINGE (J1650 PER 10MG) SC SCH (08:07)
[2024-10-23] MEDS ORDERED: VANCOMYCIN HCL 1,000 MG, VIAL MATE ADAPTER 1 EACH in NS 250 ML IV SCH (09:00)
[2024-10-23] MEDS: DOXYCYCLINE HYCLATE 100MG TABLET PO SCH (09:21)
[2024-10-23 12:03] LABS: THYROID STIMULATING HORMONE 0.169 uIU/ML (0.55-4.78); THYROXINE (T4) 8.7 UG/DL (4.5-10.9)
[2024-10-23 12:06] LABS: FREE THYROXINE INDEX 3.9 % (1.3-4.8); T UPTAKE 44.8 % (22.5-37.0)
[2024-10-23] MEDS: MAGNESIUM OXIDE 400MG TAB (MAG-OX) PO SCH (12:52)
[2024-10-23] MEDS ORDERED: CEFEPIME HCL 2 GM in DEXTROSE 5% (D5W) ADV/MINI-BAG 50 ML IV SCH (18:00)
[2024-10-24 02:45] VITALS: O2SAT 94
[2024-10-24 04:26] VITALS: BP 131/75; TEMP 97; O2SAT 96
[2024-10-24 05:37] LABS: VITAMIN B12 LEVEL 505 PG/ML (211-911)
[2024-10-24 05:37] LABS: BASO % 0.4 % (0.0-1.0); EOS # 0.1 10^3/uL (0.0-0.5); EOS % 0.9 % (0.0-3.0); HEMATOCRIT 33.1 % (36.0-47.0); HEMOGLOBIN 10.2 g/dl (12.0-15.5); LYMPH # 2.3 10^3/uL (1.5-5.0); LYMPH % 22.5 % (24.0-44.0); MEAN CORPUSCULAR HEMOGLOBIN 29.6 pg (27.0-33.0); MEAN CORPUSCULAR HGB CONC 30.8 g/dl (32.0-36.5); MEAN CORPUSCULAR VOLUME 95.9 fl (80.0-96.0); MONO % 9.8 % (2.0-8.0); NEUTROPHILS # 6.8 10^3/uL (1.5-8.5); NEUTROPHILS % 65.8 % (36.0-66.0); PLATELET COUNT, AUTOMATED 366 10^3/uL (150-450); RED BLOOD COUNT 3.45 10^6/uL (4.00-5.40); WHITE BLOOD COUNT 10.3 10^3/uL (4.0-10.0)
[2024-10-24 05:40] LABS: BLOOD UREA NITROGEN 18 MG/DL (9-23); CARBON DIOXIDE LEVEL 27 MMOL/L (20-31); CHLORIDE LEVEL 104 MMOL/L (98-107); CREATININE FOR GFR 0.55 MG/DL (0.55-1.30); GLOMERULAR FILTRATION RATE > 60.0 (>45); GLUCOSE, FASTING 183 MG/DL (74-106); IRON (FE) 31 UG/DL (50-170); MAGNESIUM LEVEL 1.8 MG/DL (1.8-2.4); POTASSIUM SERUM 4.3 MMOL/L (3.5-5.1); SODIUM LEVEL 141 MMOL/L (136-145); TOTAL IRON BINDING CAPACITY 309 UG/DL (250-425)
[2024-10-24 05:42] LABS: FOLATE 18.73 NG/ML (>5.4)
[2024-10-24] MEDS: FERRIC CARBOXYMALTOSE INJ 750 MG, VIAL MATE ADAPTER 1 EACH in NS 100 ML IV ONE (08:26)
[2024-10-24 08:29] VITALS: BP 131/75
[2024-10-24 09:00] VITALS: O2SAT 92
[2024-10-24] MEDS ORDERED: LEVO1TAB40 PO (11:14)
[2024-10-24] MEDS ORDERED: PILL CUTTER 1 EACH XX PRN (11:30)
[2024-10-24] MEDS: ONDANSETRON 4MG ORAL DISINTEGRATING TAB PO PRN (11:46)
[2024-10-24 12:00] VITALS: BP 136/63; TEMP 97.3; O2SAT 96
[2024-10-24] MEDS ORDERED: QUET1TAB17 PO (14:07)
[2024-10-26 19:27] LABS: URINE STREP PNEUMONIAE ANTIGEN NOT DETECTED (NOT DETECT)
== END 2024-10-24 14:10 | disposition home or self-care (01) | DRG 190 ==
LOC: M ED 15:06 → M ED INP 15:07 → M MSPAV 23:43 → OBSVTOIN 10-23 11:56 → UNDODISIN 10-24 13:32
PROVIDERS: ADMIT Student in an Organized Health Care Education/Training Program; ATTEND Internal Medicine
DX: J44.1 Chronic obstructive pulmonary disease with (acute) exacerbation (principal); J18.9 Pneumonia, unspecified organism; N39.0 Urinary tract infection, site not specified; J44.0 Chronic obstructive pulmonary disease with (acute) lower respiratory infection; I25.2 Old myocardial infarction; E78.5 Hyperlipidemia, unspecified; I10 Essential (primary) hypertension; G47.33 Obstructive sleep apnea (adult) (pediatric); D50.9 Iron deficiency anemia, unspecified; E83.42 Hypomagnesemia; E07.9 Disorder of thyroid, unspecified; K21.9 Gastro-esophageal reflux disease without esophagitis; E11.42 Type 2 diabetes mellitus with diabetic polyneuropathy; Z90.79 Acquired absence of other genital organ(s); Z85.41 Personal history of malignant neoplasm of cervix uteri; Z87.891 Personal history of nicotine dependence; Z79.2 Long term (current) use of antibiotics; Z79.84 Long term (current) use of oral hypoglycemic drugs; Z79.899 Other long term (current) drug therapy; Z88.0 Allergy status to penicillin; Z88.2 Allergy status to sulfonamides; Z88.8 Allergy status to other drugs, medicaments and biological substances; Z99.81 Dependence on supplemental oxygen; Z95.5 Presence of coronary angioplasty implant and graft

== ENCOUNTER 2024-12-15 01:41 | Inpatient (IN) | payer MEDICARE, MEDICAID ==
[~2024-12-15] VITALS: Ht 165.1 cm; Wt 96.1 kg
[2024-12-15] VITALS (16 sets, daily range): BP systolic 101–199; BP diastolic 57–111; TEMP 97.4–98.9; O2SAT 66–100
[~2024-12-15 01:41] MED LIST changes: +QUET1TAB17 PO
[2024-12-15 02:07] LABS: ABG BASE EXCESS -2.2 (-2.0-2.0); ABG HCO3 28.6 MMOL/L (22.0-26.0); ABG O2 SATURATION 96.3 % (95.0-99.0); ABG PARTIAL PRESSURE O2 107.5 mmHg (75.0-100.0); ABG STANDARD HCO3 22.6 MMOL/L. (22.0-26.0); ABG TOTAL CO2 31.3 MMOL/L (23.0-31.0)
[2024-12-15] MEDS ORDERED: ONDANSETRON 4MG 2ML VIAL As Ordered ONE (02:08)
[2024-12-15 02:10] LABS: ABG PARTIAL PRESSURE CO2 84.9 mmHg (35.0-45.0); ABG pH (ARTERIAL) 7.146 UNITS (7.350-7.450)
[2024-12-15] MEDS: methylPREDNISolone 125MG 2ML VIAL IV ONE (02:12)
[2024-12-15] MEDS: ONDANSETRON 4MG 2ML VIAL IV ONE (02:22)
[2024-12-15] MEDS: IPRATROPIUM 0.5MG/ALBUTEROL 2.5MG INH SOL UD 3ML (DUONEB) NEB PRN (02:23)
[2024-12-15 02:26] LABS: BASO # 0.1 10^3/uL (0.0-0.2); BASO % 0.5 % (0.0-1.0); EOS # 0.3 10^3/uL (0.0-0.5); EOS % 1.7 % (0.0-3.0); HEMATOCRIT 40.5 % (36.0-47.0); HEMOGLOBIN 12.3 g/dl (12.0-15.5); LYMPH # 5.2 10^3/uL (1.5-5.0); MEAN CORPUSCULAR HEMOGLOBIN 29.7 pg (27.0-33.0); MEAN CORPUSCULAR HGB CONC 30.4 g/dl (32.0-36.5); MEAN CORPUSCULAR VOLUME 97.8 fl (80.0-96.0); MONO # 1.6 10^3/uL (0.0-0.8); MONO % 10.6 % (2.0-8.0); NEUTROPHILS # 7.5 10^3/uL (1.5-8.5); PLATELET COUNT, AUTOMATED 399 10^3/uL (150-450); RED BLOOD COUNT 4.14 10^6/uL (4.00-5.40); WHITE BLOOD COUNT 14.7 10^3/uL (4.0-10.0)
[2024-12-15 02:47] LABS: ALBUMIN 3.4 G/DL (3.2-5.2); ALKALINE PHOSPHATASE 93 U/L (35-104); ALT/SGPT 31 U/L (7.0-40); AST/SGOT 34 U/L (<34); BILIRUBIN,DIRECT < 0.1 MG/DL (<0.4); BILIRUBIN,TOTAL < 0.2 MG/DL (0.3-1.2); BLOOD UREA NITROGEN 21 MG/DL (9-23); CALCIUM LEVEL 9.1 MG/DL (8.3-10.6); CARBON DIOXIDE LEVEL 32 MMOL/L (20-31); CHLORIDE LEVEL 100 MMOL/L (98-107); CREATININE FOR GFR 0.57 MG/DL (0.55-1.30); GLOMERULAR FILTRATION RATE > 60.0 (>45); GLUCOSE, FASTING 334 MG/DL (74-106); SODIUM LEVEL 141 MMOL/L (136-145); TOTAL PROTEIN 6.6 G/DL (5.7-8.2)
[2024-12-15 02:58] LABS: CPK CREATINE PHOSPHOKINASE 53 U/L (34-145); MB/CK RELATIVE INDEX 3.77 (< OR =4)
[2024-12-15] MEDS ORDERED: ISOVUE-370 76% 100ML VIAL As Ordered ONE (03:03)
[2024-12-15] MEDS: cefTRIAXone SOD 2 GM in DEXTROSE 5% (D5W) ADV/MINI-BAG 50 ML IV ONE (03:47)
[2024-12-15 04:27] LABS: ABG BASE EXCESS -2.6 (-2.0-2.0); ABG HCO3 26.6 MMOL/L (22.0-26.0); ABG O2 SATURATION 96.3 % (95.0-99.0); ABG PARTIAL PRESSURE O2 102.5 mmHg (75.0-100.0); ABG STANDARD HCO3 22.3 MMOL/L. (22.0-26.0); ABG TOTAL CO2 28.8 MMOL/L (23.0-31.0)
[2024-12-15 04:28] LABS: ABG PARTIAL PRESSURE CO2 70.2 mmHg (35.0-45.0); ABG pH (ARTERIAL) 7.197 UNITS (7.350-7.450)
[2024-12-15] MEDS: [UNRECOGNIZED DRUG - OTHER] IV ONE (04:36)
[2024-12-15] MEDS: NS 0.9% IV ONE (04:36)
[2024-12-15] MEDS ORDERED: MOM 30ML SUSPENSION UDC PO PRN (04:50)
[2024-12-15] MEDS ORDERED: ALBUTEROL SULFATE 2.5MG/0.5ML INH NEB SOLN NEB PRN (04:50)
[2024-12-15] MEDS ORDERED: DEXTROSE 50% 50ML SYRINGE IV PRN (04:55)
[2024-12-15] MEDS ORDERED: GLUCAGON INJ 1MG VIAL SC PRN (04:55)
[2024-12-15] MEDS ORDERED: GLUCOSE 4 GM CHEW PO PRN (04:55)
[2024-12-15] MEDS: VANCOMYCIN HCL 2,000 MG, VIAL MATE ADAPTER 1 EACH in NS 500 ML IV ONE (06:13)
[2024-12-15] MEDS ORDERED: MED REC IN PROGRESS XX SCH (07:15)
[2024-12-15] MEDS: INSULIN LISPRO (NovoLOG) PER UNIT SC SCH ×2 (07:45→21:09)
[2024-12-15] MEDS: IPRATROPIUM 0.5MG/ALBUTEROL 2.5MG INH SOL UD 3ML (DUONEB) NEB SCH ×2 (08:00→08:04)
[2024-12-15] MEDS: TIOTROPIUM INHALER/CAPSULE (SPIRIVA) INH SCH (08:00)
[2024-12-15] MEDS: SYMBICORT 160/4.5MCG INHALER 6GM INH SCH (08:04)
[2024-12-15 08:19] LABS: CK-MB VALUE MASS 3.7 NG/ML (<3.6)
[2024-12-15 08:26] LABS: MB/CK RELATIVE INDEX 6.49 (< OR =4)
[2024-12-15] MEDS: DOCUSATE SODIUM 100MG CAPSULE PO SCH (09:00)
[2024-12-15] MEDS ORDERED: ASPIRIN 81MG ENTERIC TABLET PO SCH (09:00)
[2024-12-15] MEDS ORDERED: CLOPIDOGREL 75 MG TAB PO SCH (09:00)
[2024-12-15 09:19] LABS: PROCALCITONIN 1.31 ng/ml
[2024-12-15 09:21] LABS: ABG BASE EXCESS -3.9 (-2.0-2.0); ABG HCO3 24.1 MMOL/L (22.0-26.0); ABG O2 SATURATION 96.8 % (95.0-99.0); ABG PARTIAL PRESSURE CO2 58.4 mmHg (35.0-45.0); ABG PARTIAL PRESSURE O2 105.4 mmHg (75.0-100.0); ABG STANDARD HCO3 21.2 MMOL/L. (22.0-26.0); ABG TOTAL CO2 25.9 MMOL/L (23.0-31.0); ABG pH (ARTERIAL) 7.233 UNITS (7.350-7.450)
[2024-12-15] MEDS: CEFEPIME HCL 2 GM in DEXTROSE 5% (D5W) ADV/MINI-BAG 50 ML IV SCH (09:30)
[2024-12-15] MEDS: methylPREDNISolone 40MG 1ML VIAL IV SCH ×2 (09:30→21:08)
[2024-12-15] MEDS: PANTOPRAZOLE 40MG VIAL IV SCH (09:30)
[2024-12-15] MEDS: NS 500 ML IV ONE (10:19)
[2024-12-15] MEDS: AZITHROMYCIN 250MG TABLET PO SCH (10:22)
[2024-12-15] MEDS ORDERED: HYDR-3719 PO (13:15)
[2024-12-15] MEDS ORDERED: QUET1TAB17 PO (13:15)
[2024-12-15] MEDS ORDERED: ALPR0.25 PO (13:15)
[2024-12-15] MEDS ORDERED: HOME MED LIST COMPLETE! XX SCH (13:20)
[2024-12-15 13:50] LABS: CK-MB VALUE MASS 5.3 NG/ML (<3.6)
[2024-12-15 13:51] LABS: MB/CK RELATIVE INDEX 7.16 (< OR =4)
[2024-12-15] MEDS: METOPROLOL TART 12.5 MG PER 1/2 TAB PO SCH (15:13)
[2024-12-15] MEDS: GABAPENTIN 400MG CAP PO ONE (15:13)
[2024-12-15] MEDS: NS (Normal Saline) 0.9% 1,000 ML IV ONE (15:13)
[2024-12-15] MEDS ORDERED: FUROSEMIDE 100MG/10ML VIAL As Ordered ONE (16:23)
[2024-12-15] MEDS: FUROSEMIDE 100MG/10ML VIAL IV ONE ×2 (16:24→16:49)
[2024-12-15 16:28] LABS: ABG BASE EXCESS -7.9 (-2.0-2.0); ABG HCO3 24.3 MMOL/L (22.0-26.0); ABG O2 SATURATION 80.7 % (95.0-99.0); ABG PARTIAL PRESSURE O2 58.6 mmHg (75.0-100.0); ABG STANDARD HCO3 17.8 MMOL/L. (22.0-26.0); ABG TOTAL CO2 27.1 MMOL/L (23.0-31.0)
[2024-12-15 16:29] LABS: ABG PARTIAL PRESSURE CO2 90.9 mmHg (35.0-45.0); ABG pH (ARTERIAL) 7.045 UNITS (7.350-7.450)
[2024-12-15] MEDS: NITROGLYCERIN 0.3MG SUBL TAB SL PRN (16:30)
[2024-12-15] MEDS ORDERED: NITROGLYCERIN 0.4MG SUBL TABLET As Ordered ONE (16:30)
[2024-12-15] MEDS: ENOXAPARIN 100MG/1ML SYRINGE (J1650 PER 10MG) SC SCH (16:37)
[2024-12-15 16:54] LABS: BASO # 0.1 10^3/uL (0.0-0.2); BASO % 0.2 % (0.0-1.0); HEMATOCRIT 41.4 % (36.0-47.0); LYMPH # 1.2 10^3/uL (1.5-5.0); LYMPH % 4.5 % (24.0-44.0); MEAN CORPUSCULAR HEMOGLOBIN 29.1 pg (27.0-33.0); MEAN CORPUSCULAR VOLUME 100.2 fl (80.0-96.0); MONO # 1.4 10^3/uL (0.0-0.8); MONO % 5.4 % (2.0-8.0); NEUTROPHILS # 22.3 10^3/uL (1.5-8.5); NEUTROPHILS % 87.4 % (36.0-66.0); PLATELET COUNT, AUTOMATED 374 10^3/uL (150-450); RED BLOOD COUNT 4.13 10^6/uL (4.00-5.40); WHITE BLOOD COUNT 25.5 10^3/uL (4.0-10.0)
[2024-12-15 17:19] LABS: ALBUMIN 3.2 G/DL (3.2-5.2); ALKALINE PHOSPHATASE 80 U/L (35-104); ALT/SGPT 40 U/L (7.0-40); AST/SGOT 32 U/L (<34); BILIRUBIN,TOTAL 0.2 MG/DL (0.3-1.2); BLOOD UREA NITROGEN 23 MG/DL (9-23); CALCIUM LEVEL 8.3 MG/DL (8.3-10.6); CARBON DIOXIDE LEVEL 23 MMOL/L (20-31); CHLORIDE LEVEL 106 MMOL/L (98-107); CREATININE FOR GFR 0.64 MG/DL (0.55-1.30); GLOMERULAR FILTRATION RATE > 60.0 (>45); GLUCOSE, FASTING 361 MG/DL (74-106); MAGNESIUM LEVEL 1.7 MG/DL (1.8-2.4); POTASSIUM SERUM 5.9 MMOL/L (3.5-5.1); SODIUM LEVEL 140 MMOL/L (136-145); TOTAL PROTEIN 6.5 G/DL (5.7-8.2)
[2024-12-15] MEDS ORDERED: VANCOMYCIN HCL 1,000 MG, VIAL MATE ADAPTER 1 EACH in NS 250 ML IV SCH (18:00)
[2024-12-15] MEDS: MAG SULF 1GM/100ML (MAG RUN) 1 GM in IV 1 EA IV ONE (19:03)
[2024-12-15 20:16] LABS: VENOUS BASE EXCESS -4.1 (-2.0-2.0); VENOUS HCO3 24.8 MMOL/L (23.0-27.0); VENOUS O2 SATURATION 92.9 % (60.0-80.0); VENOUS PARTIAL PRESSURE O2 73.2 mmHg (30.0-50.0); VENOUS PH 7.199 UNITS (7.330-7.430); VENOUS TOTAL CO2 26.8 MMOL/L (24.0-28.0)
[2024-12-15 20:48] LABS: CK-MB VALUE MASS 7.8 NG/ML (<3.6)
[2024-12-15 20:49] LABS: MB/CK RELATIVE INDEX 7.09 (< OR =4)
[2024-12-15] MEDS: QUEtiapine FUMARATE 25 MG TAB PO SCH (21:00)
[2024-12-15 21:29] LABS: ABG HCO3 26.1 MMOL/L (22.0-26.0); ABG O2 SATURATION 95.8 % (95.0-99.0); ABG PARTIAL PRESSURE O2 88.2 mmHg (75.0-100.0); ABG STANDARD HCO3 22.7 MMOL/L. (22.0-26.0)
[2024-12-15 21:30] LABS: ABG pH (ARTERIAL) 7.243 UNITS (7.350-7.450)
[2024-12-15 21:31] LABS: ABG PARTIAL PRESSURE CO2 61.9 mmHg (35.0-45.0)
[2024-12-15] MEDS: ATORVASTATIN 20 MG TAB PO SCH (22:14)
[2024-12-16] VITALS (68 sets, daily range): BP systolic 13–214; BP diastolic 40–104; TEMP 97.1–98.6; O2SAT 89–100
[2024-12-16] MEDS: clonazePAM 0.5 MG TAB PO ONE (02:22)
[2024-12-16 05:31] LABS: BASO % 0.1 % (0.0-1.0); HEMATOCRIT 34.3 % (36.0-47.0); HEMOGLOBIN 10.4 g/dl (12.0-15.5); LYMPH # 0.9 10^3/uL (1.5-5.0); LYMPH % 4.2 % (24.0-44.0); MEAN CORPUSCULAR HEMOGLOBIN 29.5 pg (27.0-33.0); MEAN CORPUSCULAR HGB CONC 30.3 g/dl (32.0-36.5); MEAN CORPUSCULAR VOLUME 97.2 fl (80.0-96.0); MONO # 2.5 10^3/uL (0.0-0.8); MONO % 11.1 % (2.0-8.0); NEUTROPHILS # 18.4 10^3/uL (1.5-8.5); NEUTROPHILS % 83.4 % (36.0-66.0); PLATELET COUNT, AUTOMATED 302 10^3/uL (150-450); RED BLOOD COUNT 3.53 10^6/uL (4.00-5.40); WHITE BLOOD COUNT 22.1 10^3/uL (4.0-10.0)
[2024-12-16 06:03] LABS: CPK CREATINE PHOSPHOKINASE 154 U/L (34-145)
[2024-12-16 06:12] LABS: ABG PARTIAL PRESSURE O2 177.4 mmHg (75.0-100.0); ABG STANDARD HCO3 25.4 MMOL/L. (22.0-26.0); ABG TOTAL CO2 30.9 MMOL/L (23.0-31.0); ABG pH (ARTERIAL) 7.278 UNITS (7.350-7.450)
[2024-12-16 06:14] LABS: ABG PARTIAL PRESSURE CO2 63.4 mmHg (35.0-45.0)
[2024-12-16 06:29] LABS: PROCALCITONIN 2.36 ng/ml
[2024-12-16 06:43] LABS: ALBUMIN 3.1 G/DL (3.2-5.2); ALKALINE PHOSPHATASE 65 U/L (35-104); ALT/SGPT 36 U/L (7.0-40); AST/SGOT 26 U/L (<34); BILIRUBIN,TOTAL 0.3 MG/DL (0.3-1.2); BLOOD UREA NITROGEN 23 MG/DL (9-23); CALCIUM LEVEL 8.4 MG/DL (8.3-10.6); CHLORIDE LEVEL 105 MMOL/L (98-107); GLOMERULAR FILTRATION RATE > 60.0 (>45); GLUCOSE, FASTING 257 MG/DL (74-106); MAGNESIUM LEVEL 1.8 MG/DL (1.8-2.4); MB/CK RELATIVE INDEX 5.84 (< OR =4); POTASSIUM SERUM 4.6 MMOL/L (3.5-5.1); SODIUM LEVEL 143 MMOL/L (136-145)
[2024-12-16 06:54] LABS: CARBON DIOXIDE LEVEL 28 MMOL/L (20-31)
[2024-12-16] MEDS ORDERED: HEPARIN DRIP 25,000 UNITS in IV 1 EA IV SCH (07:50)
[2024-12-16] MEDS ORDERED: HEPARIN SOD (PORCINE) 5000UNITS/ML 1ML VIAL/SYRINGE IV PRN ×2 (07:50→15:00)
[2024-12-16] MEDS: FUROSEMIDE 100MG/10ML VIAL IV ONE (08:48)
[2024-12-16] MEDS: ASPIRIN 325 MG TAB PO SCH (09:00)
[2024-12-16] MEDS ORDERED: ASPIRIN 81MG ENTERIC TABLET PO SCH (09:00)
[2024-12-16] MEDS ORDERED: ENOXAPARIN 40MG/0.4ML SYRINGE (J1650 PER 10MG) SC SCH (09:00)
[2024-12-16] MEDS: EZETIMIBE 10MG TABLET (ZETIA) PO SCH (09:00)
[2024-12-16] MEDS ORDERED: dexmedeTOMidine 200 MCG in IV 1 EA IV SCH (09:10)
[2024-12-16] MEDS: dexmedeTOMidine 200 MCG in IV 1 EA IV SCH (09:41)
[2024-12-16] MEDS: MORPHINE 2 MG/ML 1ML VIAL IV PRN (10:02)
[2024-12-16 13:16] LABS: CK-MB VALUE MASS 7.1 NG/ML (<3.6); MAGNESIUM LEVEL 1.4 MG/DL (1.8-2.4)
[2024-12-16 13:17] LABS: MB/CK RELATIVE INDEX 4.86 (< OR =4)
[2024-12-16 14:45] LABS: CENTRAL VEN BASE EXCESS 1.3
[2024-12-16] MEDS: MAG SULF 1GM/100ML (MAG RUN) 1 GM in IV 1 EA IV SCH (15:14)
[2024-12-16] MEDS: MIDAZOLAM INJ 2MG/2ML VIAL IV ONE (15:24)
[2024-12-16] MEDS: ETOMIDATE INJ 20MG/10ML VIAL IV STA (15:38)
[2024-12-16] MEDS: SUCCINYLCHOLINE INJ 200MG/10ML VIAL IV STA (15:38)
[2024-12-16] MEDS: NOREPINEPHRINE 4MG IN D5 250ML 4 MG in IV 1 EA IV SCH (15:40)
[2024-12-16] MEDS ORDERED: FENTANYL DRIP LOCK BOX KEY 1 EACH XX PRN (15:55)
[2024-12-16] MEDS: MIDAZOLAM INJ 2MG/2ML VIAL IV STA (16:00)
[2024-12-16] MEDS: HEPARIN DRIP 25,000 UNITS in IV 1 EA IV SCH (16:11)
[2024-12-16] MEDS: fentaNYL CITRATE/NaCl 1,000 MCG in IV 1 EA IV SCH (16:38)
[2024-12-16 16:42] LABS: ABG BASE EXCESS 1.8 (-2.0-2.0); ABG HCO3 27.1 MMOL/L (22.0-26.0); ABG O2 SATURATION 96.4 % (95.0-99.0); ABG PARTIAL PRESSURE CO2 45.3 mmHg (35.0-45.0); ABG PARTIAL PRESSURE O2 89.6 mmHg (75.0-100.0); ABG STANDARD HCO3 26.1 MMOL/L. (22.0-26.0); ABG TOTAL CO2 28.4 MMOL/L (23.0-31.0); ABG pH (ARTERIAL) 7.394 UNITS (7.350-7.450)
== END 2024-12-16 18:19 | disposition short-term general hospital (02) | DRG 208 ==
LOC: M ED 01:41 → M ED INP 05:45 → M ICU 08:21
PROVIDERS: ADMIT Internal Medicine Critical Care Medicine; ATTEND Internal Medicine Critical Care Medicine
PROC: 5A1935Z Respiratory Ventilation, Less than 24 Consecutive Hours (ICD-10-PCS; principal; 2024-12-16)
PROC: B246ZZZ Ultrasonography of Right and Left Heart (ICD-10-PCS; 2024-12-16)
PROC: 02HV33Z Insertion of Infusion Device into Superior Vena Cava, Percutaneous Approach (ICD-10-PCS; 2024-12-16)
DX: J96.21 Acute and chronic respiratory failure with hypoxia (principal); J18.9 Pneumonia, unspecified organism; J81.0 Acute pulmonary edema; G93.41 Metabolic encephalopathy; I21.4 Non-ST elevation (NSTEMI) myocardial infarction; J44.1 Chronic obstructive pulmonary disease with (acute) exacerbation; I50.32 Chronic diastolic (congestive) heart failure; E87.20 Acidosis, unspecified; J44.0 Chronic obstructive pulmonary disease with (acute) lower respiratory infection; I25.10 Atherosclerotic heart disease of native coronary artery without angina pectoris; I25.2 Old myocardial infarction; E78.5 Hyperlipidemia, unspecified; I11.0 Hypertensive heart disease with heart failure; G47.33 Obstructive sleep apnea (adult) (pediatric); K21.9 Gastro-esophageal reflux disease without esophagitis; E11.42 Type 2 diabetes mellitus with diabetic polyneuropathy; M54.16 Radiculopathy, lumbar region; F41.9 Anxiety disorder, unspecified; Z87.891 Personal history of nicotine dependence; Z99.81 Dependence on supplemental oxygen; Z79.2 Long term (current) use of antibiotics; Z79.84 Long term (current) use of oral hypoglycemic drugs; Z79.899 Other long term (current) drug therapy; Z88.0 Allergy status to penicillin; Z88.2 Allergy status to sulfonamides; Z88.8 Allergy status to other drugs, medicaments and biological substances; Z95.5 Presence of coronary angioplasty implant and graft; Z90.79 Acquired absence of other genital organ(s); Z85.41 Personal history of malignant neoplasm of cervix uteri; J96.22 Acute and chronic respiratory failure with hypercapnia

== ENCOUNTER 2025-01-06 14:11 | Inpatient (IN) | payer MEDICARE, MEDICAID ==
[~2025-01-06] VITALS: Ht 165.1 cm; Wt 85.1 kg
[~2025-01-06 14:11] MED LIST changes: +ALPR0.25 PO; +HYDR-3719 PO
[2025-01-06 14:55] LABS: BASO # 0.1 10^3/uL (0.0-0.2); BASO % 0.4 % (0.0-1.0); EOS % 0.2 % (0.0-3.0); HEMATOCRIT 35.9 % (36.0-47.0); HEMOGLOBIN 11.1 g/dl (12.0-15.5); LYMPH # 0.8 10^3/uL (1.5-5.0); LYMPH % 4.5 % (24.0-44.0); MEAN CORPUSCULAR HEMOGLOBIN 29.5 pg (27.0-33.0); MEAN CORPUSCULAR HGB CONC 30.9 g/dl (32.0-36.5); MEAN CORPUSCULAR VOLUME 95.5 fl (80.0-96.0); MONO # 1.3 10^3/uL (0.0-0.8); MONO % 7.2 % (2.0-8.0); NEUTROPHILS # 15.5 10^3/uL (1.5-8.5); NEUTROPHILS % 87.4 % (36.0-66.0); PLATELET COUNT, AUTOMATED 347 10^3/uL (150-450); RED BLOOD COUNT 3.76 10^6/uL (4.00-5.40); WHITE BLOOD COUNT 17.8 10^3/uL (4.0-10.0)
[2025-01-06] MEDS: FUROSEMIDE 40MG/4ML VIAL IV ONE (15:05)
[2025-01-06] MEDS: IPRATROPIUM 0.5MG/ALBUTEROL 2.5MG INH SOL UD 3ML (DUONEB) NEB PRN (15:08)
[2025-01-06 15:22] LABS: CPK CREATINE PHOSPHOKINASE 62 U/L (34-145)
[2025-01-06 15:26] LABS: VENOUS BASE EXCESS 10.1 (-2.0-2.0); VENOUS HCO3 38.1 MMOL/L (23.0-27.0); VENOUS O2 SATURATION 96.5 % (60.0-80.0); VENOUS PARTIAL PRESSURE CO2 69.7 mmHg (38.0-50.0); VENOUS PARTIAL PRESSURE O2 95.8 mmHg (30.0-50.0); VENOUS PH 7.355 UNITS (7.330-7.430); VENOUS STANDARD HCO3 33.8 MMOL/L; VENOUS TOTAL CO2 40.2 MMOL/L (24.0-28.0)
[2025-01-06 15:34] LABS: ALBUMIN 3.7 G/DL (3.2-5.2); ALKALINE PHOSPHATASE 79 U/L (35-104); ALT/SGPT 13 U/L (7.0-40); AST/SGOT 16 U/L (<34); BILIRUBIN,DIRECT 0.1 MG/DL (<0.4); BILIRUBIN,TOTAL 0.3 MG/DL (0.3-1.2); BLOOD UREA NITROGEN 30 MG/DL (9-23); CALCIUM LEVEL 10.2 MG/DL (8.3-10.6); CARBON DIOXIDE LEVEL > 40.0 MMOL/L (20-31); CHLORIDE LEVEL 91 MMOL/L (98-107); CK-MB VALUE MASS < 1.0 NG/ML (<3.6); GLOMERULAR FILTRATION RATE > 60.0 (>45); GLUCOSE, FASTING 197 MG/DL (74-106); MB/CK RELATIVE INDEX 1.61 (< OR =4); POTASSIUM SERUM 5.6 MMOL/L (3.5-5.1); SODIUM LEVEL 138 MMOL/L (136-145); TOTAL PROTEIN 7.1 G/DL (5.7-8.2)
[2025-01-06] MEDS: CEFEPIME HCL 2 GM in DEXTROSE 5% (D5W) ADV/MINI-BAG 50 ML IV ONE (17:30)
[2025-01-06] MEDS: ACETAMINOPHEN *IV* 1,000 MG in IV 1 EA IV ONE (17:49)
[2025-01-06] MEDS ORDERED: VANCOMYCIN HCL 1,000 MG in IV FLUID PLACE HOLDER 1 EA IV ONE (18:25)
[2025-01-06] MEDS ORDERED: ISOVUE-370 76% 100ML VIAL As Ordered ONE (18:33)
[2025-01-06] MEDS: methylPREDNISolone 125MG 2ML VIAL IV SCH (19:14)
[2025-01-06] MEDS: VANCOMYCIN HCL 1,000 MG, VIAL MATE ADAPTER 1 EACH in NS 250 ML IV ONE (19:57)
[2025-01-06] MEDS: ACETAMINOPHEN 650MG SUPP PR ONE (19:57)
[2025-01-06] MEDS ORDERED: LISI20TA33 PO (20:31)
[2025-01-06] MEDS ORDERED: IPRA0.00 INH (20:35)
[2025-01-06] MEDS ORDERED: MED REC IN PROGRESS XX SCH (20:45)
[2025-01-06 20:58] VITALS: BP 153/71; TEMP 98.7; O2SAT 96
[2025-01-06] MEDS: IPRATROPIUM 0.5MG/ALBUTEROL 2.5MG INH SOL UD 3ML (DUONEB) NEB SCH (20:59)
[2025-01-06 21:20] LABS: APPEARANCE, URINE CLEAR (CLEAR); BACTERIA, URINE AUTO NEGATIVE (NEGATIVE); BILIRUBIN, URINE AUTO NEGATIVE (NEGATIVE); BLOOD, URINE BLOOD 1+ (NEGATIVE); COLOR, URINE STRAW (YELLOW); GLUCOSE, URINE (UA) AUTO 3+ mg/dL (NEGATIVE); KETONE, URINE AUTO NEGATIVE (NEGATIVE); LEUKOCYTE ESTERASE, URINE AUTO 2+ (NEGATIVE); NITRITE, URINE AUTO NEGATIVE (NEGATIVE); PROTEIN, URINE AUTO NEGATIVE (NEGATIVE); RBC, URINE AUTO 2 /HPF (0-3); SPECIFIC GRAVITY URINE AUTO 1.007 (1.002-1.035); SQUAMOUS EPITHELIAL CELL UR AU 0 /HPF (0-6); UROBILINOGEN, URINE AUTO 0.2 mg/dL (0.0-2.0); WBC, URINE AUTO 46 /HPF (0-3)
[2025-01-06 21:45] LABS: AMPHETAMINES LEVEL URINE NEGATIVE (NEGATIVE); BARBITURATES URINE NEGATIVE (NEGATIVE); CANNABINOIDS URINE NEGATIVE (NEGATIVE); COCAINE METABOLITE URINE NEGATIVE (NEGATIVE); METHADONE URINE NEGATIVE (NEGATIVE); PHENCYCLIDINE URINE NEGATIVE (NEGATIVE)
[2025-01-06 21:47] LABS: BENZODIAZEPINES URINE POSITIVE (NEGATIVE); OPIATES URINE POSITIVE (NEGATIVE)
[2025-01-06] MEDS ORDERED: ELIQ5TAB PO (21:52)
[2025-01-06] MEDS ORDERED: METO1TAB32 PO (21:52)
[2025-01-06] MEDS ORDERED: HOME MED LIST COMPLETE! XX SCH (21:55)
[2025-01-06 22:00] VITALS: BP 156/91; O2SAT 97
[2025-01-06 22:02] LABS: BLOOD UREA NITROGEN 31 MG/DL (9-23); CALCIUM LEVEL 9.6 MG/DL (8.3-10.6); CARBON DIOXIDE LEVEL 40 MMOL/L (20-31); CHLORIDE LEVEL 92 MMOL/L (98-107); CREATININE FOR GFR 0.91 MG/DL (0.55-1.30); GLOMERULAR FILTRATION RATE > 60.0 (>45); GLUCOSE, FASTING 258 MG/DL (74-106); POTASSIUM SERUM 5.1 MMOL/L (3.5-5.1); SODIUM LEVEL 140 MMOL/L (136-145)
[2025-01-06 22:09] LABS: PROCALCITONIN 0.83 ng/ml
[2025-01-06] MEDS: diphenhydrAMINE 50MG/ML VIAL IV ONE (22:41)
[2025-01-06] MEDS ORDERED: FUROSEMIDE 20MG/2ML VIAL IV SCH (23:00)
[2025-01-06] MEDS: VANCOMYCIN HCL 1,000 MG, VIAL MATE ADAPTER 1 EACH in NS 250 ML IV SCH (23:35)
[2025-01-07] VITALS (9 sets, daily range): BP systolic 100–173; BP diastolic 53–87; TEMP 97–98.6; O2SAT 93–99
[2025-01-07] MEDS: FUROSEMIDE 20MG/2ML VIAL IV SCH (03:41)
[2025-01-07] MEDS: OLANZapine INTRAMUSCULAR 10MG VIAL IM ONE (03:55)
[2025-01-07] MEDS: CEFEPIME HCL 2 GM in DEXTROSE 5% (D5W) ADV/MINI-BAG 50 ML IV SCH ×2 (05:28→14:19)
[2025-01-07 08:04] LABS: HEMATOCRIT 35.6 % (36.0-47.0); HEMOGLOBIN 10.9 g/dl (12.0-15.5); MEAN CORPUSCULAR HEMOGLOBIN 29.4 pg (27.0-33.0); MEAN CORPUSCULAR HGB CONC 30.6 g/dl (32.0-36.5); PLATELET COUNT, AUTOMATED 304 10^3/uL (150-450); RED BLOOD COUNT 3.71 10^6/uL (4.00-5.40); WHITE BLOOD COUNT 14.1 10^3/uL (4.0-10.0)
[2025-01-07 08:28] LABS: ALBUMIN 3.4 G/DL (3.2-5.2); ALKALINE PHOSPHATASE 67 U/L (35-104); ALT/SGPT 11 U/L (7.0-40); AST/SGOT 10 U/L (<34); BILIRUBIN,TOTAL 0.4 MG/DL (0.3-1.2); BLOOD UREA NITROGEN 32 MG/DL (9-23); CARBON DIOXIDE LEVEL 38 MMOL/L (20-31); CHLORIDE LEVEL 93 MMOL/L (98-107); CREATININE FOR GFR 0.84 MG/DL (0.55-1.30); GLOMERULAR FILTRATION RATE > 60.0 (>45); GLUCOSE, FASTING 256 MG/DL (74-106); POTASSIUM SERUM 4.6 MMOL/L (3.5-5.1); SODIUM LEVEL 144 MMOL/L (136-145); TOTAL PROTEIN 6.9 G/DL (5.7-8.2); VANCOMYCIN RANDOM 20.8 UG/ML
[2025-01-07] MEDS ORDERED: ENOXAPARIN 40MG/0.4ML SYRINGE (J1650 PER 10MG) SC SCH (09:00)
[2025-01-07] MEDS: APIXABAN 5 MG TAB (ELIQUIS) PO SCH ×2 (09:27→21:00)
[2025-01-07] MEDS: GABAPENTIN 300 MG CAP PO SCH (09:39)
[2025-01-07] MEDS ORDERED: ENOXAPARIN 80MG/0.8ML SYRINGE (J1650 PER 10MG) SC SCH ×2 (09:40→22:00)
[2025-01-07] MEDS: CLOPIDOGREL 75 MG TAB PO SCH (11:23)
[2025-01-07] MEDS: OLANZapine ORAL DISINTEGRATING TAB 5MG PO PRN (11:24)
[2025-01-07] MEDS ORDERED: OLANZapine ORAL DISINTEGRATING TAB 5MG PO PRN (14:20)
[2025-01-07] MEDS ORDERED: GLUCAGON INJ 1MG VIAL SC PRN (14:40)
[2025-01-07] MEDS ORDERED: DEXTROSE 50% 50ML SYRINGE IV PRN (14:40)
[2025-01-07] MEDS ORDERED: GLUCOSE 4 GM CHEW PO PRN (14:40)
[2025-01-07] MEDS: AZITHROMYCIN 250MG TABLET PO SCH (15:30)
[2025-01-07] MEDS: METOPROLOL SUCC *XL* 25MG TAB (TopROL *XL*) PO SCH (15:31)
[2025-01-07] MEDS: TIOTROPIUM INHALER/CAPSULE (SPIRIVA) INH SCH (16:59)
[2025-01-07] MEDS: INSULIN LISPRO (NovoLOG) PER UNIT SC SCH ×2 (17:19→21:00)
[2025-01-07] MEDS: methylPREDNISolone 40MG 1ML VIAL IV SCH (17:20)
[2025-01-07] MEDS: SYMBICORT 160/4.5MCG INHALER 6GM INH SCH (19:42)
[2025-01-07] MEDS: LanTUS (INSULIN GLARGINE INJ) 1 UNITS/0.01 ML SC SCH (21:00)
[2025-01-07] MEDS: ATORVASTATIN 20 MG TAB PO SCH (21:00)
[2025-01-07] MEDS: QUEtiapine FUMARATE 25 MG TAB PO SCH (23:30)
[2025-01-08 03:22] VITALS: BP 151/72; TEMP 98.1; O2SAT 96
[2025-01-08 07:57] VITALS: BP 159/68; TEMP 98.2; O2SAT 98
[2025-01-08 08:11] LABS: HEMATOCRIT 33.2 % (36.0-47.0); HEMOGLOBIN 10.4 g/dl (12.0-15.5); MEAN CORPUSCULAR HEMOGLOBIN 29.3 pg (27.0-33.0); MEAN CORPUSCULAR HGB CONC 31.3 g/dl (32.0-36.5); MEAN CORPUSCULAR VOLUME 93.5 fl (80.0-96.0); PLATELET COUNT, AUTOMATED 373 10^3/uL (150-450); RED BLOOD COUNT 3.55 10^6/uL (4.00-5.40); WHITE BLOOD COUNT 16.3 10^3/uL (4.0-10.0)
[2025-01-08 08:14] LABS: ABG HCO3 38.5 MMOL/L (22.0-26.0); ABG O2 SATURATION 98.2 % (95.0-99.0); ABG PARTIAL PRESSURE CO2 53.5 mmHg (35.0-45.0); ABG PARTIAL PRESSURE O2 104.6 mmHg (75.0-100.0); ABG STANDARD HCO3 36.8 MMOL/L. (22.0-26.0); ABG TOTAL CO2 40.1 MMOL/L (23.0-31.0); ABG pH (ARTERIAL) 7.475 UNITS (7.350-7.450)
[2025-01-08 08:34] LABS: ALBUMIN 3.5 G/DL (3.2-5.2); ALKALINE PHOSPHATASE 66 U/L (35-104); ALT/SGPT 12 U/L (7.0-40); AST/SGOT 13 U/L (<34); BILIRUBIN,TOTAL 0.4 MG/DL (0.3-1.2); BLOOD UREA NITROGEN 28 MG/DL (9-23); CALCIUM LEVEL 10.3 MG/DL (8.3-10.6); CARBON DIOXIDE LEVEL 40 MMOL/L (20-31); CHLORIDE LEVEL 95 MMOL/L (98-107); GLOMERULAR FILTRATION RATE > 60.0 (>45); GLUCOSE, FASTING 192 MG/DL (74-106); POTASSIUM SERUM 4.1 MMOL/L (3.5-5.1); SODIUM LEVEL 143 MMOL/L (136-145)
[2025-01-08] MEDS: EZETIMIBE 10MG TABLET (ZETIA) PO SCH (08:48)
[2025-01-08] MEDS ORDERED: ASPIRIN 81MG ENTERIC TABLET PO SCH (09:00)
[2025-01-08 10:37] LABS: PROCALCITONIN 0.41 ng/ml
[2025-01-08 12:00] VITALS: BP 167/71; TEMP 97.8; O2SAT 90
[2025-01-08] MEDS: QUEtiapine FUMARATE 25 MG TAB PO SCH (12:00)
[2025-01-08] MEDS ORDERED: ONDANSETRON 4MG 2ML VIAL IV PRN (15:35)
[2025-01-08 16:07] VITALS: BP 157/66; TEMP 97.5; O2SAT 98
[2025-01-08 20:04] VITALS: BP 163/88; TEMP 97.4; O2SAT 95
[2025-01-08 23:41] VITALS: BP 160/82; TEMP 98.4; O2SAT 95
[2025-01-09 04:19] VITALS: BP 164/86; TEMP 97.7; O2SAT 95
[2025-01-09 08:01] VITALS: BP 150/97; TEMP 97.8; O2SAT 97
[2025-01-09] MEDS: FUROSEMIDE 40 MG TAB PO SCH (08:27)
[2025-01-09 10:33] LABS: HEMATOCRIT 35.1 % (36.0-47.0); MEAN CORPUSCULAR HEMOGLOBIN 28.9 pg (27.0-33.0); MEAN CORPUSCULAR HGB CONC 31.3 g/dl (32.0-36.5); MEAN CORPUSCULAR VOLUME 92.1 fl (80.0-96.0); PLATELET COUNT, AUTOMATED 380 10^3/uL (150-450); RED BLOOD COUNT 3.81 10^6/uL (4.00-5.40); WHITE BLOOD COUNT 11.5 10^3/uL (4.0-10.0)
[2025-01-09 11:05] LABS: ALBUMIN 3.4 G/DL (3.2-5.2); ALKALINE PHOSPHATASE 61 U/L (35-104); ALT/SGPT 10 U/L (7.0-40); AST/SGOT 11 U/L (<34); BILIRUBIN,TOTAL 0.3 MG/DL (0.3-1.2); BLOOD UREA NITROGEN 31 MG/DL (9-23); CALCIUM LEVEL 10.1 MG/DL (8.3-10.6); CARBON DIOXIDE LEVEL 36 MMOL/L (20-31); CHLORIDE LEVEL 100 MMOL/L (98-107); CREATININE FOR GFR 0.73 MG/DL (0.55-1.30); GLOMERULAR FILTRATION RATE > 60.0 (>45); GLUCOSE, FASTING 225 MG/DL (74-106); SODIUM LEVEL 143 MMOL/L (136-145)
[2025-01-09 11:44] VITALS: BP 157/92; TEMP 98; O2SAT 96
[2025-01-09] MEDS: LORazepam 0.5 MG TAB PO ONE (11:54)
[2025-01-09 16:01] VITALS: BP 153/85; TEMP 98.2; O2SAT 98
[2025-01-09] MEDS: LevoFLOXacin 750 MG TABLET PO SCH (17:14)
[2025-01-09 20:00] VITALS: BP 153/85; TEMP 98.2; O2SAT 98
[2025-01-09] MEDS: RAMELTEON 8 MG TAB (ROZEREM) PO SCH (20:06)
[2025-01-09] MEDS: QUEtiapine FUMARATE 50MG TAB PO SCH (20:06)
[2025-01-09 21:00] VITALS: BP 160/78; TEMP 98; O2SAT 97
[2025-01-10] VITALS (8 sets, daily range): BP systolic 119–150; BP diastolic 63–92; TEMP 96.7–98.2; O2SAT 96–98
[2025-01-10 06:23] LABS: HEMATOCRIT 36.9 % (36.0-47.0); HEMOGLOBIN 11.9 g/dl (12.0-15.5); MEAN CORPUSCULAR HEMOGLOBIN 29.7 pg (27.0-33.0); MEAN CORPUSCULAR HGB CONC 32.2 g/dl (32.0-36.5); PLATELET COUNT, AUTOMATED 391 10^3/uL (150-450); RED BLOOD COUNT 4.01 10^6/uL (4.00-5.40); WHITE BLOOD COUNT 11.1 10^3/uL (4.0-10.0)
[2025-01-10 06:50] LABS: ALBUMIN 3.4 G/DL (3.2-5.2); ALKALINE PHOSPHATASE 59 U/L (35-104); ALT/SGPT 12 U/L (7.0-40); AST/SGOT 10 U/L (<34); BILIRUBIN,TOTAL 0.3 MG/DL (0.3-1.2); BLOOD UREA NITROGEN 35 MG/DL (9-23); CARBON DIOXIDE LEVEL 37 MMOL/L (20-31); CHLORIDE LEVEL 97 MMOL/L (98-107); CREATININE FOR GFR 0.88 MG/DL (0.55-1.30); GLOMERULAR FILTRATION RATE > 60.0 (>45); GLUCOSE, FASTING 165 MG/DL (74-106); POTASSIUM SERUM 3.9 MMOL/L (3.5-5.1); SODIUM LEVEL 143 MMOL/L (136-145); TOTAL PROTEIN 6.9 G/DL (5.7-8.2)
[2025-01-10] MEDS: METOPROLOL TART 12.5 MG PER 1/2 TAB PO SCH (13:16)
[2025-01-10] MEDS: predniSONE 20 MG TAB PO SCH (13:22)
[2025-01-10] MEDS: NICOTINE 14 MG/24 HR TRANSDERMAL TD SCH (14:30)
[2025-01-10 16:06] LABS: VENOUS BASE EXCESS 8.2 (-2.0-2.0); VENOUS HCO3 32.3 MMOL/L (23.0-27.0); VENOUS O2 SATURATION 99.4 % (60.0-80.0); VENOUS PARTIAL PRESSURE CO2 43.1 mmHg (38.0-50.0); VENOUS PARTIAL PRESSURE O2 175.5 mmHg (30.0-50.0); VENOUS PH 7.493 UNITS (7.330-7.430); VENOUS TOTAL CO2 33.7 MMOL/L (24.0-28.0)
[2025-01-10] MEDS: QUEtiapine FUMARATE 25 MG TAB PO SCH (20:13)
[2025-01-10] MEDS: ACETAMINOPHEN *IV* 1,000 MG in IV 1 EA IV PRN (20:16)
[2025-01-11] VITALS (7 sets, daily range): BP systolic 109–126; BP diastolic 56–64; TEMP 97–98.6; O2SAT 94–99
[2025-01-11 05:46] LABS: HEMATOCRIT 39.4 % (36.0-47.0); HEMOGLOBIN 12.1 g/dl (12.0-15.5); MEAN CORPUSCULAR HEMOGLOBIN 28.9 pg (27.0-33.0); MEAN CORPUSCULAR HGB CONC 30.7 g/dl (32.0-36.5); MEAN CORPUSCULAR VOLUME 94.3 fl (80.0-96.0); PLATELET COUNT, AUTOMATED 389 10^3/uL (150-450); RED BLOOD COUNT 4.18 10^6/uL (4.00-5.40); WHITE BLOOD COUNT 8.1 10^3/uL (4.0-10.0)
[2025-01-11 05:54] LABS: ALBUMIN 3.3 G/DL (3.2-5.2); BILIRUBIN,TOTAL 0.3 MG/DL (0.3-1.2); CALCIUM LEVEL 9.4 MG/DL (8.3-10.6); CREATININE FOR GFR 1.15 MG/DL (0.55-1.30); GLOMERULAR FILTRATION RATE 49.8 (>45); POTASSIUM SERUM 4.2 MMOL/L (3.5-5.1); TOTAL PROTEIN 6.4 G/DL (5.7-8.2)
[2025-01-11] MEDS: TIOTROPIUM BROM 2.5MCG/ACTUATION 4GM INH IH SCH (07:20)
[2025-01-11] MEDS: AZITHROMYCIN 250MG TABLET PO SCH (08:10)
[2025-01-12 04:13] VITALS: BP 107/58; TEMP 97.2; O2SAT 97
[2025-01-12 07:07] LABS: BASO % 0.3 % (0.0-1.0); EOS # 0.1 10^3/uL (0.0-0.5); HEMATOCRIT 34.7 % (36.0-47.0); HEMOGLOBIN 11.1 g/dl (12.0-15.5); LYMPH # 2.4 10^3/uL (1.5-5.0); MEAN CORPUSCULAR HEMOGLOBIN 29.2 pg (27.0-33.0); MEAN CORPUSCULAR VOLUME 91.3 fl (80.0-96.0); MONO # 1.4 10^3/uL (0.0-0.8); MONO % 12.7 % (2.0-8.0); NEUTROPHILS # 6.5 10^3/uL (1.5-8.5); NEUTROPHILS % 61.6 % (36.0-66.0); PLATELET COUNT, AUTOMATED 379 10^3/uL (150-450); WHITE BLOOD COUNT 10.6 10^3/uL (4.0-10.0)
[2025-01-12 07:39] LABS: CALCIUM LEVEL 8.8 MG/DL (8.3-10.6); CREATININE FOR GFR 2.67 MG/DL (0.55-1.30); GLOMERULAR FILTRATION RATE 18.8 (>45)
[2025-01-12 07:49] VITALS: BP 106/53; TEMP 97.6; O2SAT 97
[2025-01-12] MEDS: NS (Normal Saline) 0.9% 1,000 ML IV SCH (10:30)
[2025-01-12 11:50] VITALS: BP 124/62; TEMP 98; O2SAT 96
[2025-01-12 15:33] VITALS: BP 107/58; TEMP 97.4; O2SAT 95
[2025-01-12 17:11] LABS: APPEARANCE, URINE CLOUDY (CLEAR); BACTERIA, URINE AUTO NEGATIVE (NEGATIVE); BILIRUBIN, URINE AUTO NEGATIVE (NEGATIVE); BLOOD, URINE BLOOD 1+ (NEGATIVE); COLOR, URINE YELLOW (YELLOW); GLUCOSE, URINE (UA) AUTO 2+ mg/dL (NEGATIVE); KETONE, URINE AUTO NEGATIVE (NEGATIVE); LEUKOCYTE ESTERASE, URINE AUTO 3+ (NEGATIVE); NITRITE, URINE AUTO NEGATIVE (NEGATIVE); PROTEIN, URINE AUTO 1+ mg/dL (NEGATIVE); RBC, URINE AUTO 13 /HPF (0-3); SPECIFIC GRAVITY URINE AUTO 1.017 (1.002-1.035); SQUAMOUS EPITHELIAL CELL UR AU 0 /HPF (0-6); UROBILINOGEN, URINE AUTO 0.2 mg/dL (0.0-2.0); WBC, URINE AUTO TNTC /HPF (0-3); YEAST LIKE CELL URINE AUTO MODERATE
[2025-01-12 17:23] LABS: SODIUM,RANDOM URINE 46 MMOL/L
[2025-01-12 17:33] LABS: CREATININE,RANDOM URINE 174.6 MG/DL
[2025-01-12 17:39] LABS: CHLORIDE,RANDOM URINE < 20 MMOL/L
[2025-01-12 19:45] VITALS: BP 110/60; TEMP 97; O2SAT 96
[2025-01-12 23:25] VITALS: BP 94/50; TEMP 97.4; O2SAT 94
[2025-01-13 03:46] VITALS: BP 144/63; TEMP 96.7; O2SAT 100
[2025-01-13 06:38] LABS: BASO % 0.2 % (0.0-1.0); EOS # 0.1 10^3/uL (0.0-0.5); EOS % 1.1 % (0.0-3.0); HEMATOCRIT 32.2 % (36.0-47.0); HEMOGLOBIN 10.1 g/dl (12.0-15.5); LYMPH # 2.3 10^3/uL (1.5-5.0); LYMPH % 22.1 % (24.0-44.0); MEAN CORPUSCULAR HEMOGLOBIN 29.1 pg (27.0-33.0); MEAN CORPUSCULAR HGB CONC 31.4 g/dl (32.0-36.5); MEAN CORPUSCULAR VOLUME 92.8 fl (80.0-96.0); MONO # 1.3 10^3/uL (0.0-0.8); MONO % 12.1 % (2.0-8.0); NEUTROPHILS # 6.6 10^3/uL (1.5-8.5); NEUTROPHILS % 62.5 % (36.0-66.0); PLATELET COUNT, AUTOMATED 353 10^3/uL (150-450); RED BLOOD COUNT 3.47 10^6/uL (4.00-5.40); WHITE BLOOD COUNT 10.5 10^3/uL (4.0-10.0)
[2025-01-13 07:10] LABS: PERCENT SATURATION 26.1 % (13.2-45.0)
[2025-01-13 07:12] LABS: FERRITIN 200.2 NG/ML (7.3-270.7)
[2025-01-13 07:13] LABS: ALBUMIN 2.8 G/DL (3.2-5.2); BILIRUBIN,TOTAL 0.2 MG/DL (0.3-1.2); CALCIUM LEVEL 8.4 MG/DL (8.3-10.6); CREATININE FOR GFR 1.78 MG/DL (0.55-1.30); GLOMERULAR FILTRATION RATE 30.1 (>45); MAGNESIUM LEVEL 2.1 MG/DL (1.8-2.4); PHOSPHORUS LEVEL 4.1 MG/DL (2.4-5.1); POTASSIUM SERUM 3.9 MMOL/L (3.5-5.1); TOTAL PROTEIN 5.6 G/DL (5.7-8.2)
[2025-01-13 07:36] VITALS: BP 134/60; TEMP 97.8; O2SAT 99
[2025-01-13] MEDS: cefTRIAXone SOD 1 GM in DEXTROSE 5% (D5W) ADV/MINI-BAG 50 ML IV SCH (12:30)
[2025-01-13 16:00] VITALS: BP 123/60; TEMP 97.6; O2SAT 99
[2025-01-13] MEDS ORDERED: GABAPENTIN 300 MG CAP PO SCH (17:00)
[2025-01-13] MEDS: GABAPENTIN 100 MG CAP PO SCH (17:12)
[2025-01-13 20:02] VITALS: BP 119/56; TEMP 97; O2SAT 97
[2025-01-13] MEDS ORDERED: ANUSOL HC CREAM 30GM TOP PRN (20:40)
[2025-01-14 04:00] VITALS: BP 120/57; TEMP 98; O2SAT 100
[2025-01-14 05:53] LABS: BASO % 0.3 % (0.0-1.0); EOS # 0.1 10^3/uL (0.0-0.5); EOS % 0.8 % (0.0-3.0); HEMATOCRIT 30.6 % (36.0-47.0); HEMOGLOBIN 9.7 g/dl (12.0-15.5); LYMPH # 2.6 10^3/uL (1.5-5.0); LYMPH % 23.6 % (24.0-44.0); MEAN CORPUSCULAR HEMOGLOBIN 29.3 pg (27.0-33.0); MEAN CORPUSCULAR HGB CONC 31.7 g/dl (32.0-36.5); MEAN CORPUSCULAR VOLUME 92.4 fl (80.0-96.0); MONO # 1.2 10^3/uL (0.0-0.8); MONO % 11.2 % (2.0-8.0); NEUTROPHILS # 6.8 10^3/uL (1.5-8.5); NEUTROPHILS % 61.8 % (36.0-66.0); PLATELET COUNT, AUTOMATED 351 10^3/uL (150-450); RED BLOOD COUNT 3.31 10^6/uL (4.00-5.40); WHITE BLOOD COUNT 11.1 10^3/uL (4.0-10.0)
[2025-01-14 06:12] LABS: ALBUMIN 2.9 G/DL (3.2-5.2); ALKALINE PHOSPHATASE 69 U/L (35-104); ALT/SGPT 13 U/L (7.0-40); AST/SGOT 8 U/L (<34); BILIRUBIN,TOTAL 0.2 MG/DL (0.3-1.2); BLOOD UREA NITROGEN 56 MG/DL (9-23); CALCIUM LEVEL 8.5 MG/DL (8.3-10.6); CARBON DIOXIDE LEVEL 27 MMOL/L (20-31); CHLORIDE LEVEL 110 MMOL/L (98-107); CREATININE FOR GFR 0.83 MG/DL (0.55-1.30); GLOMERULAR FILTRATION RATE > 60.0 (>45); GLUCOSE, FASTING 119 MG/DL (74-106); MAGNESIUM LEVEL 2.2 MG/DL (1.8-2.4); POTASSIUM SERUM 3.6 MMOL/L (3.5-5.1); SODIUM LEVEL 145 MMOL/L (136-145); TOTAL PROTEIN 5.7 G/DL (5.7-8.2)
[2025-01-14 08:25] VITALS: BP 128/59; TEMP 97.2; O2SAT 100
[2025-01-14 08:42] LABS: KETONE, URINE AUTO RFX NEGATIVE (NEGATIVE); NITRITE, URINE AUTO RFX NEGATIVE (NEGATIVE); RBC, URINE AUTO RFX 12 /HPF (0-3); SQUAM EPITHELIAL CELL UR AURFX 1 /HPF (0-6); YEAST LIKE CELL URINE AUTO RFX MODERATE
[2025-01-14 08:49] LABS: LEUKOCYTE ESTERASE UR AUTO RFX 2+ (NEGATIVE); WBC, URINE AUTO RFX 70 /HPF (0-3)
[2025-01-14 11:53] VITALS: BP 146/64; TEMP 97.6; O2SAT 98
[2025-01-14] MEDS ORDERED: SODIUM CHLORIDE NASAL 0.65% SPRAY BTL (OCEAN) PRN (13:15)
[2025-01-14] MEDS: OXYMETAZOLINE 0.05% NASAL SPRAY SCH (14:48)
[2025-01-14 16:00] VITALS: BP 151/63; TEMP 98.1; O2SAT 98
[2025-01-14] MEDS ORDERED: PILL CUTTER 1 EACH XX ONE (17:39)
[2025-01-14] MEDS: FLUCONAZOLE 100 MG TAB PO ONE (17:42)
[2025-01-14 20:06] VITALS: BP 152/61; TEMP 98.1; O2SAT 98
[2025-01-14] MEDS: NORCO, ANEXSIA 5/325MG TABLET (HYDROcodone/ACETAMINOPHEN) PO PRN (22:19)
[2025-01-15 04:32] VITALS: BP 107/53; TEMP 97.2; O2SAT 97
[2025-01-15 06:20] LABS: BASO % 0.2 % (0.0-1.0); EOS # 0.1 10^3/uL (0.0-0.5); HEMATOCRIT 29.1 % (36.0-47.0); HEMOGLOBIN 8.9 g/dl (12.0-15.5); LYMPH # 2.7 10^3/uL (1.5-5.0); LYMPH % 26.7 % (24.0-44.0); MEAN CORPUSCULAR HEMOGLOBIN 28.9 pg (27.0-33.0); MEAN CORPUSCULAR HGB CONC 30.6 g/dl (32.0-36.5); MEAN CORPUSCULAR VOLUME 94.5 fl (80.0-96.0); MONO # 1.3 10^3/uL (0.0-0.8); NEUTROPHILS # 5.7 10^3/uL (1.5-8.5); NEUTROPHILS % 56.8 % (36.0-66.0); PLATELET COUNT, AUTOMATED 296 10^3/uL (150-450); RED BLOOD COUNT 3.08 10^6/uL (4.00-5.40)
[2025-01-15 07:16] LABS: ALBUMIN 2.7 G/DL (3.2-5.2); ALKALINE PHOSPHATASE 62 U/L (35-104); ALT/SGPT 16 U/L (7.0-40); AST/SGOT 9 U/L (<34); BILIRUBIN,TOTAL 0.2 MG/DL (0.3-1.2); BLOOD UREA NITROGEN 35 MG/DL (9-23); CALCIUM LEVEL 8.3 MG/DL (8.3-10.6); CARBON DIOXIDE LEVEL 28 MMOL/L (20-31); CHLORIDE LEVEL 112 MMOL/L (98-107); CREATININE FOR GFR 0.57 MG/DL (0.55-1.30); GLOMERULAR FILTRATION RATE > 60.0 (>45); GLUCOSE, FASTING 114 MG/DL (74-106); MAGNESIUM LEVEL 2.2 MG/DL (1.8-2.4); POTASSIUM SERUM 3.9 MMOL/L (3.5-5.1); SODIUM LEVEL 148 MMOL/L (136-145); TOTAL PROTEIN 5.3 G/DL (5.7-8.2)
[2025-01-15 08:00] VITALS: BP 138/65; TEMP 97; O2SAT 100
[2025-01-15 08:24] VITALS: BP 107/53
[2025-01-15] MEDS: predniSONE 10MG TAB PO SCH (08:25)
[2025-01-15] MEDS: FUROSEMIDE 40 MG TAB PO SCH (08:25)
[2025-01-15] MEDS ORDERED: HYDR-3719 PO (09:28)
[2025-01-15] MEDS ORDERED: CLOP75TA2 PO (09:28)
[2025-01-15] MEDS ORDERED: GABA-1171 PO (09:28)
[2025-01-15] MEDS ORDERED: PRED10TA2 PO (09:28)
[2025-01-15] MEDS: GABAPENTIN 100 MG CAP PO SCH (12:19)
== END 2025-01-15 14:05 | disposition home health service (06) | DRG 280 ==
LOC: EDBD 14:11 → M ED 14:11 → M ED INP 18:18 → M ICU 20:34 → M PCU 01-07 16:41
PROVIDERS: ADMIT Internal Medicine Pulmonary Disease; ATTEND Internal Medicine
DX: I11.0 Hypertensive heart disease with heart failure (principal); I22.2 Subsequent non-ST elevation (NSTEMI) myocardial infarction; J18.9 Pneumonia, unspecified organism; G92.8 Other toxic encephalopathy; J96.21 Acute and chronic respiratory failure with hypoxia; J96.22 Acute and chronic respiratory failure with hypercapnia; A41.9 Sepsis, unspecified organism; J44.0 Chronic obstructive pulmonary disease with (acute) lower respiratory infection; F11.20 Opioid dependence, uncomplicated; J44.1 Chronic obstructive pulmonary disease with (acute) exacerbation; F13.20 Sedative, hypnotic or anxiolytic dependence, uncomplicated; N17.9 Acute kidney failure, unspecified; I50.22 Chronic systolic (congestive) heart failure; G89.4 Chronic pain syndrome; E11.42 Type 2 diabetes mellitus with diabetic polyneuropathy; Z99.81 Dependence on supplemental oxygen; I25.10 Atherosclerotic heart disease of native coronary artery without angina pectoris; I48.91 Unspecified atrial fibrillation; Z95.5 Presence of coronary angioplasty implant and graft; Z79.01 Long term (current) use of anticoagulants; Z95.2 Presence of prosthetic heart valve; F41.9 Anxiety disorder, unspecified; K21.9 Gastro-esophageal reflux disease without esophagitis; B37.31 Acute candidiasis of vulva and vagina; F17.200 Nicotine dependence, unspecified, uncomplicated; F32.A Depression, unspecified; Z85.41 Personal history of malignant neoplasm of cervix uteri; Z79.899 Other long term (current) drug therapy; Z88.0 Allergy status to penicillin; Z88.2 Allergy status to sulfonamides; Z88.8 Allergy status to other drugs, medicaments and biological substances; E03.9 Hypothyroidism, unspecified; Z86.16 Personal history of COVID-19

== ENCOUNTER → 2025-06-15 | Outpatient (CLI) | payer MEDICARE, MEDICAID ==
[~2025-06-15] MED LIST changes: +BUPR-670 PO; -BUPR1TAB52 PO; -COLC0.6T47 PO; +COLC0.6T53 PO; +ELIQ5TAB PO; -EZET10TA21 PO; +EZET10TA57 PO; +IPRA0.00 INH; +LISI20TA33 PO; +METO1TAB32 PO
[2025-06-15 10:23] LABS: BASO # 0.0 10^3/uL (0.0-0.2); BASO % 0.4 % (0.0-1.0); EOS # 0.0 10^3/uL (0.0-0.5); EOS % 0.3 % (0.0-3.0); LYMPH # 1.9 10^3/uL (1.5-5.0); LYMPH % 20.0 % (24.0-44.0); MONO # 1.0 10^3/uL (0.0-0.8); MONO % 10.6 % (2.0-8.0); NEUTROPHILS # 6.4 10^3/uL (1.5-8.5); NEUTROPHILS % 68.4 % (36.0-66.0); PLATELET COUNT, AUTOMATED 260 10^3/uL (150-450)
[2025-06-15 10:34] LABS: ESTIMATED AVERAGE GLUCOSE 206.0 MG/DL (60-110)
[2025-06-15 10:48] LABS: ALT/SGPT 18.0 U/L (7.0-40); AST/SGOT 13.0 U/L (<34); CALCIUM LEVEL 10.2 MG/DL (8.3-10.6); CARBON DIOXIDE LEVEL 34.0 MMOL/L (20-31); CHLORIDE LEVEL 99.0 MMOL/L (98-107); CHOLESTEROL LEVEL 162.0 MG/DL (<200); CHOLESTEROL RISK RATIO 3.66 (<5); CREATININE FOR GFR 0.82 MG/DL (0.55-1.30); GLOMERULAR FILTRATION RATE 77.4 (>45); LDL CHOLESTEROL 45.8 MG/DL (<100); NON-HDL-C 117.8 MG/DL; POTASSIUM SERUM 5.2 MMOL/L (3.5-5.1); SODIUM LEVEL 142.0 MMOL/L (136-145); TRIGLYCERIDES LEVEL 360.0 MG/DL (<150)
== END ==
LOC: M LAB 08:53
DX: I10 Essential (primary) hypertension (principal); E11.9 Type 2 diabetes mellitus without complications; E78.5 Hyperlipidemia, unspecified

== ENCOUNTER → 2025-06-16 | Outpatient (REF) | payer MEDICARE, MEDICAID ==
[~2025-06-16] MED LIST changes: +COLC0.6T47 PO; -COLC0.6T53 PO; +EZET10TA21 PO; -EZET10TA57 PO
[2025-06-16 11:43] LABS: APPEARANCE, URINE HAZY (CLEAR); BACTERIA, URINE AUTO NEGATIVE (NEGATIVE); BILIRUBIN, URINE AUTO NEGATIVE (NEGATIVE); BLOOD, URINE BLOOD NEGATIVE (NEGATIVE); GLUCOSE, URINE (UA) AUTO 1+ mg/dL (NEGATIVE); KETONE, URINE AUTO NEGATIVE (NEGATIVE); LEUKOCYTE ESTERASE, URINE AUTO 2+ (NEGATIVE); NITRITE, URINE AUTO NEGATIVE (NEGATIVE); PROTEIN, URINE AUTO NEGATIVE (NEGATIVE); RBC, URINE AUTO 8 /HPF (0-3); SPECIFIC GRAVITY URINE AUTO 1.012 (1.002-1.035); SQUAMOUS EPITHELIAL CELL UR AU 0 /HPF (0-6); UROBILINOGEN, URINE AUTO 0.2 mg/dL (0.0-2.0); WBC, URINE AUTO 83 /HPF (0-3); YEAST LIKE CELL URINE AUTO SMALL
== END ==
LOC: M LAB REF 11:04
DX: I10 Essential (primary) hypertension (principal); E11.9 Type 2 diabetes mellitus without complications; E78.5 Hyperlipidemia, unspecified; N39.0 Urinary tract infection, site not specified

== ENCOUNTER → 2025-07-12 | Outpatient (REF) | payer MEDICARE, MEDICAID ==
[~2025-07-12] MED LIST changes: -COLC0.6T47 PO; +COLC0.6T53 PO; -EZET10TA21 PO; +EZET10TA57 PO
== END ==
LOC: M LABSMT 15:09
PROVIDERS: ATTEND Nurse Practitioner Family
DX: Z53.9 Procedure and treatment not carried out, unspecified reason (principal)

== ENCOUNTER → 2025-09-28 | Outpatient (CLI) | payer MEDICARE, MEDICAID ==
[2025-09-28 11:09] LABS: ESTIMATED AVERAGE GLUCOSE 192.0 MG/DL (60-110)
[2025-09-28 11:24] LABS: ALT/SGPT 17 U/L (7.0-40); AST/SGOT 17 U/L (<34); CALCIUM LEVEL 9.2 MG/DL (8.3-10.6); CARBON DIOXIDE LEVEL 35 MMOL/L (20-31); CHLORIDE LEVEL 98 MMOL/L (98-107); CHOLESTEROL LEVEL 127 MG/DL (<200); CHOLESTEROL RISK RATIO 3.09 (<5); CREATININE FOR GFR 0.60 MG/DL (0.55-1.30); GLOMERULAR FILTRATION RATE > 90.0 (>45); LDL CHOLESTEROL 30.0 MG/DL (<100); NON-HDL-C 86.0 MG/DL; POTASSIUM SERUM 4.9 MMOL/L (3.5-5.1); SODIUM LEVEL 141 MMOL/L (136-145); TRIGLYCERIDES LEVEL 280 MG/DL (<150)
== END ==
LOC: M LAB 09:23
DX: E11.40 Type 2 diabetes mellitus with diabetic neuropathy, unspecified (principal)